=== PATIENT | male | born 1970 | race Caucasian/White ===

== ENCOUNTER 2016-08-18 14:31 | Inpatient (IN) | payer MEDICAID ==
[~2016-08-18] VITALS: Ht 188 cm; Wt 71.9 kg
[~2016-08-18 14:31] MED LIST: AMLO10TA2 PO; BUPR100T71 PO; BUS10T PO; CARI-277 PO; DOC100C PO; ESCI20TA PO; HYDR12.56 PO; HYDR1CAP27 PO; LAMO25TA2 PO; LEVO25TA6 PO; LORA2TAB10 PO; METO25TA5 PO; OXYC10TA44 PO; PANT1INJ3 PO; TRIA1TAB18 PO
[2016-08-18 15:49] LABS: Basophils # (auto) 0 uL; Basophils % (auto) 0.5 % (0.0-2.0); Eosinophils # (auto) 0.1 uL; Eosinophils % (auto) 0.8 % (0.0-7.0); Hematocrit 50.8 % (41.0-53.0); Hemoglobin 17.3 g/dL (13.5-17.5); Lymphocytes # (auto) 1.4 uL; Mean Corpuscular Hemoglobin 30.3 pg (28.0-32.0); Mean Corpuscular Volume 89.2 fL (80.0-100.0); Mean Platelet Volume 7.8 fL (7.4-10.4); Monocytes # (auto) 0.2 uL; Monocytes % (auto) 3.1 % (0.0-12.0); Neutrophils # (auto) 5.8 uL; Neutrophils % (auto) 77.6 % (37.0-80.0); Platelet Count (auto) 242 10^3/uL (140-450); Red Cell Distribution Width 12.7 % (11.6-16.0); White Blood Cell 7.5 10^3/uL (4.4-10.8)
[2016-08-18 16:12] LABS: Albumin 4.2 g/dL (3.4-5.0); BUN/Creatinine Ratio 13.6; Bilirubin, Total 1.4 mg/dL (0.2-1.0); Magnesium 2.6 mg/dL (1.6-2.6); Potassium 3.7 mmol/L (3.5-5.1); Total Protein 7.6 g/dL (6.4-8.2)
[2016-08-18 16:17] LABS: B-Type Natriuretic Peptide 15.5 pg/mL (0-100)
[2016-08-18 16:19] LABS: Temperature: 21.9 C (20.0-25.0)
[2016-08-18] MEDS ORDERED: cloNIDine HCL 0.1 MG TAB PO ONE (22:30)
[2016-08-18] MEDS ORDERED: ONDANSETRON HCL 4 MG/2 ML VIAL IV ONE ×2 (22:30→23:15)
[2016-08-18] MEDS ORDERED: ASPirin 81 mg TAB PO ONE (22:30)
[2016-08-18] MEDS ORDERED: MORPHINE SULFATE 4 MG/ML SYRG IV ONE ×2 (22:30→23:15)
[2016-08-18 22:53] LABS: Urine RBC None Seen /hpf (0 - 3)
[2016-08-18 22:57] LABS: INR 1.08 (0.9-1.15)
[2016-08-18 23:11] LABS: B-Type Natriuretic Peptide 9.16 pg/mL (0-100)
[2016-08-18 23:18] LABS: Urine Bilirubin Negative (Negative); Urine Blood Negative /uL (Negative); Urine Color Yellow (Yellow); Urine Glucose Normal (Normal); Urine Ketone TRACE (Negative); Urine Nitrite Negative (Negative); Urine Squamous Epithelial Cell FEW /hpf (<5); Urine Urobilinogen Normal (Negative); Urine pH 6.5 (5.0-8.0)
[2016-08-18 23:30] LABS: Temperature: 20.9 C (20.0-25.0)
[2016-08-19] VITALS (7 sets, daily range): BP systolic 103–190; BP diastolic 57–102
[2016-08-19] MEDS ORDERED: CARISOPRODOL 350 MG TAB PO PRN (01:15)
[2016-08-19] MEDS ORDERED: NITROGLYCERIN 0.4 MG SL TAB SL PRN (01:15)
[2016-08-19] MEDS ORDERED: LACTULOSE 20Gm/30ML SOLN PO PRN (01:15)
[2016-08-19] MEDS ORDERED: MORPHINE SULF INJ 2 MG/ML SYRINGE 1ML IV PRN (01:15)
[2016-08-19] MEDS ORDERED: LORazepam 0.5 MG TAB PO PRN (01:15)
[2016-08-19] MEDS: SODIUM CHLORIDE 0.9% 1,000 ML IV SCH ×2 (05:51→13:33)
[2016-08-19] MEDS: LEVOTHYROXINE SODIUM 25 MCG TAB PO SCH (06:26)
[2016-08-19] MEDS: OXYCODONE W/ ACETAMINOPHEN 5/325MG TABLET PO PRN ×4 (07:55→22:08)
[2016-08-19] MEDS ORDERED: METOPROLOL SUCCINATE XL 50 MG TAB PO ONE (09:30)
[2016-08-19] MEDS: NITROGLYCERIN 0.2MG/HR TOPICAL PATCH TD SCH (10:00)
[2016-08-19] MEDS ORDERED: ENOXAPARIN SOD 30 MG/0.3 ML SYRINGE SC SCH (10:00)
[2016-08-19] MEDS: ENALAPRIL MALEATE 10 MG TAB PO SCH (10:00)
[2016-08-19] MEDS ORDERED: METOPROLOL TARTRATE 25 MG TAB PO SCH (10:00)
[2016-08-19] MEDS: buPROPion HCL 100 MG TAB PO SCH (11:12)
[2016-08-19] MEDS: amLODIPine BESYLATE 5 MG TAB PO SCH (11:13)
[2016-08-19] MEDS: lamoTRIgine 25 MG TAB PO SCH ×2 (11:15→22:07)
[2016-08-19] MEDS: ASPirin 81 mg TAB PO SCH (11:16)
[2016-08-19] MEDS: CITALOPRAM HYDROBR 20 MG TAB PO SCH (11:16)
[2016-08-19] MEDS: HCTZ 25 MG TAB PO SCH (11:17)
[2016-08-19] MEDS: PANTOPRAZOLE SODIUM 40 MG/10 ML VIAL IV SCH (11:18)
[2016-08-19] MEDS: ENOXAPARIN SOD 40 MG/0.4 ML SYRINGE SC SCH (11:18)
[2016-08-19] MEDS ORDERED: ATORVASTATIN 20 MG TAB PO SCH (22:00)
[2016-08-20] MEDS: SODIUM CHLORIDE 0.9% 1,000 ML IV SCH (02:03)
[2016-08-20 04:30] VITALS: BP 110/78
[2016-08-20 05:47] LABS: Basophils # (auto) 0 uL; Basophils % (auto) 0.6 % (0.0-2.0); Eosinophils # (auto) 0.1 uL; Eosinophils % (auto) 1.3 % (0.0-7.0); Hematocrit 45.3 % (41.0-53.0); Hemoglobin 15.3 g/dL (13.5-17.5); Lymphocytes # (auto) 2.1 uL; Lymphocytes % (auto) 29.1 % (10.0-50.0); Mean Corpuscular Hemoglobin 30.4 pg (28.0-32.0); Mean Corpuscular Hgb Conc. 33.7 g/dL (32.0-36.0); Mean Corpuscular Volume 90.1 fL (80.0-100.0); Monocytes # (auto) 0.3 uL; Monocytes % (auto) 4.8 % (0.0-12.0); Neutrophils # (auto) 4.5 uL; Neutrophils % (auto) 64.2 % (37.0-80.0); Platelet Count (auto) 230 10^3/uL (140-450); Red Cell Distribution Width 12.7 % (11.6-16.0)
[2016-08-20 06:13] LABS: Albumin 3.4 g/dL (3.4-5.0); BUN/Creatinine Ratio 14.4; Bilirubin, Total 1.9 mg/dL (0.2-1.0); Calcium 8.5 mg/dL (8.5-10.1); Potassium 4.1 mmol/L (3.5-5.1); Total Protein 6.3 g/dL (6.4-8.2)
[2016-08-20] MEDS: LEVOTHYROXINE SODIUM 25 MCG TAB PO SCH (06:24)
[2016-08-20 09:12] VITALS: BP 126/83
[2016-08-20] MEDS: ENOXAPARIN SOD 40 MG/0.4 ML SYRINGE SC SCH (09:58)
[2016-08-20] MEDS: PANTOPRAZOLE SODIUM 40 MG/10 ML VIAL IV SCH (09:58)
[2016-08-20] MEDS: ENALAPRIL MALEATE 10 MG TAB PO SCH (09:59)
[2016-08-20] MEDS: lamoTRIgine 25 MG TAB PO SCH (09:59)
[2016-08-20] MEDS: buPROPion HCL 100 MG TAB PO SCH (10:00)
[2016-08-20] MEDS: CITALOPRAM HYDROBR 20 MG TAB PO SCH (10:00)
[2016-08-20] MEDS: NITROGLYCERIN 0.2MG/HR TOPICAL PATCH TD SCH (10:00)
[2016-08-20] MEDS ORDERED: METOPROLOL SUCCINATE XL 50 MG TAB PO SCH (10:00)
[2016-08-20] MEDS: amLODIPine BESYLATE 5 MG TAB PO SCH (10:01)
[2016-08-20] MEDS: ASPirin 81 mg TAB PO SCH (10:02)
[2016-08-20] MEDS: HCTZ 25 MG TAB PO SCH (10:06)
[2016-08-20 13:00] VITALS: BP 128/94
[2016-08-20 15:52] VITALS: BP 126/83
== END 2016-08-20 15:51 | disposition home or self-care (01) | DRG 203 ==
LOC: ER 14:41 → TELE 14:42 → TELE-WESTW 08-19 01:34 → WEST WING 08-20 03:18
PROVIDERS: ADMIT Family Medicine; ATTEND Family Medicine
DX: R07.9 Chest pain, unspecified (principal); G45.9 Transient cerebral ischemic attack, unspecified; I10 Essential (primary) hypertension; E03.9 Hypothyroidism, unspecified; F32.9 Major depressive disorder, single episode, unspecified; F41.9 Anxiety disorder, unspecified; F43.10 Post-traumatic stress disorder, unspecified; G40.909 Epilepsy, unspecified, not intractable, without status epilepticus; I69.354 Hemiplegia and hemiparesis following cerebral infarction affecting left non-dominant side; Z82.3 Family history of stroke; Z87.442 Personal history of urinary calculi; Z88.5 Allergy status to narcotic agent; Z88.8 Allergy status to other drugs, medicaments and biological substances; Z90.89 Acquired absence of other organs
CPT/HCPCS: 36415; 71010; 71020; 80053; 80061; 81001; 83735; 83880; 84484; 85025; 85049; 85379; 85610; 85730; 93005; 96374; 96375; 97110; 97116; 97530; C9113; J2405

== ENCOUNTER 2017-04-28 19:22 | Emergency (ER) | payer MEDICAID ==
[~2017-04-28] VITALS: Ht 188 cm; Wt 74.8 kg
[2017-04-28 19:33] VITALS: BP 163/100
[2017-04-28 20:03] LABS: Urine Bilirubin Negative (Negative); Urine Blood Negative /uL (Negative); Urine Color Yellow (Yellow); Urine Glucose TRACE mg/dL (Normal); Urine Ketone Negative (Negative); Urine Mucus FEW (None Seen); Urine Nitrite Negative (Negative); Urine RBC 1 /hpf (0 - 3); Urine Squamous Epithelial Cell FEW /hpf (<5); Urine Urobilinogen Normal (Negative); Urine pH 5.5 (5.0-8.0)
[2017-04-28 20:35] LABS: BUN/Creatinine Ratio 13.5; Magnesium 2.7 mg/dL (1.6-2.6); Potassium 3.8 mmol/L (3.5-5.1)
[2017-04-28 20:37] LABS: Bilirubin, Total 1.7 mg/dL (0.2-1.0); Total Protein 7.2 g/dL (6.4-8.2)
[2017-04-28 20:50] LABS: Basophils # (auto) 0.1 uL; Basophils % (auto) 1.1 % (0.0-2.0); Eosinophils # (auto) 0.1 uL; Eosinophils % (auto) 1.3 % (0.0-7.0); Hemoglobin 17.2 g/dL (13.5-17.5); Lymphocytes # (auto) 1.8 uL; Lymphocytes % (auto) 27.2 % (10.0-50.0); Mean Corpuscular Hgb Conc. 35.9 g/dL (32.0-36.0); Mean Corpuscular Volume 89.2 fL (80.0-100.0); Monocytes # (auto) 0.3 uL; Monocytes % (auto) 4.4 % (0.0-12.0); Neutrophils # (auto) 4.4 uL; Nucleated Red Blood Cells % 0.1 %; Platelet Count (auto) 222 10^3/uL (140-450); Red Cell Distribution Width 12.7 % (11.8-14.3); White Blood Cell 6.7 10^3/uL (4.4-10.8)
== END 2017-04-28 20:57 | disposition left against medical advice (07) ==
LOC: ER 19:22
DX: R10.9 Unspecified abdominal pain (principal); Z53.21 Procedure and treatment not carried out due to patient leaving prior to being seen by health care provider
CPT/HCPCS: 36415; 80053; 81001; 83690; 83735; 85025

== ENCOUNTER 2017-11-17 23:52 | Emergency (ER) | payer MEDICAID ==
[~2017-11-17] VITALS: Ht 188 cm; Wt 74.8 kg
[2017-11-18] MEDS ORDERED: cloNIDine HCL 0.1 MG TAB ONE (00:11)
[2017-11-18] MEDS ORDERED: cloNIDine HCL 0.1 MG TAB PO ONE (00:30)
[2017-11-18 01:19] LABS: Basophils # (auto) 0.1 uL; Basophils % (auto) 0.8 % (0.0-2.0); Eosinophils # (auto) 0 uL; Eosinophils % (auto) 0.5 % (0.0-7.0); Hematocrit 48.1 % (41.0-53.0); Lymphocytes # (auto) 1.9 uL; Lymphocytes % (auto) 23.6 % (10.0-50.0); Mean Corpuscular Hgb Conc. 35.4 g/dL (32.0-36.0); Mean Corpuscular Volume 87.7 fL (80.0-100.0); Monocytes # (auto) 0.3 uL; Monocytes % (auto) 4.4 % (0.0-12.0); Neutrophils # (auto) 5.6 uL; Neutrophils % (auto) 70.7 % (37.0-80.0); Nucleated Red Blood Cells % 0.1 %; Platelet Count (auto) 226 10^3/uL (140-450); Red Blood Cells 5.48 10^6/uL (4.5-5.90); Red Cell Distribution Width 12.9 % (11.8-14.3); White Blood Cell 7.9 10^3/uL (4.4-10.8)
[2017-11-18 01:37] LABS: Chloride 106 mmol/L (98-107); Potassium 3.4 mmol/L (3.5-5.1); Sodium 140 mmol/L (136-145)
[2017-11-18 01:41] LABS: Alanine Aminotransferase 23 U/L (16-61); Albumin 3.9 g/dL (3.4-5.0); Anion Gap 9 (5-15); Aspartate Aminotransferase 16 U/L (15-37); BUN/Creatinine Ratio 13.8; Blood Urea Nitrogen 19 mg/dL (7-18); Calcium 8.7 mg/dL (8.5-10.1); Carbon Dioxide 25 mmol/L (21-32); GFR African American 71 mL/min; GFR Non-African American 59 mL/min; Glucose 94 mg/dL (74-106); Magnesium 2.4 mg/dL (1.6-2.6)
[2017-11-18 01:46] LABS: Alkaline Phosphatase 77 U/L (45-117); Bilirubin, Total 1.4 mg/dL (0.2-1.0); Total Protein 7.3 g/dL (6.4-8.2)
[2017-11-18 04:30] VITALS: BP 152/88
== END 2017-11-18 05:42 | disposition home or self-care (01) ==
LOC: ER 23:59
DX: F41.9 Anxiety disorder, unspecified (principal); I10 Essential (primary) hypertension; R51 Headache; Z86.73 Personal history of transient ischemic attack (TIA), and cerebral infarction without residual deficits; Z87.442 Personal history of urinary calculi; Z88.6 Allergy status to analgesic agent; Z88.8 Allergy status to other drugs, medicaments and biological substances
CPT/HCPCS: 36415; 70450; 71045; 80053; 83735; 84484; 85025; 93005

== ENCOUNTER 2017-12-17 09:38 | Inpatient (IN) | payer MEDICAID ==
[~2017-12-17] VITALS: Ht 188 cm; Wt 77.5 kg
[2017-12-17] MEDS ORDERED: LABETALOL HCL 5 MG/ML ML 20ML VIAL IV ONE (10:00)
[2017-12-17 10:30] LABS: Basophils # (auto) 0 uL; Basophils % (auto) 0.7 % (0.0-2.0); Eosinophils # (auto) 0.1 uL; Eosinophils % (auto) 1.4 % (0.0-7.0); Hematocrit 49.7 % (41.0-53.0); Hemoglobin 17.5 g/dL (13.5-17.5); Lymphocytes # (auto) 1.3 uL; Lymphocytes % (auto) 23.6 % (10.0-50.0); Mean Corpuscular Hemoglobin 30.6 pg (28.0-32.0); Mean Corpuscular Hgb Conc. 35.2 g/dL (32.0-36.0); Mean Corpuscular Volume 86.9 fL (80.0-100.0); Monocytes # (auto) 0.3 uL; Monocytes % (auto) 5.3 % (0.0-12.0); Neutrophils # (auto) 3.8 uL; Nucleated Red Blood Cells % 0.1 %; Platelet Count (auto) 230 10^3/uL (140-450); Red Blood Cells 5.71 10^6/uL (4.5-5.90); Red Cell Distribution Width 12.9 % (11.8-14.3); White Blood Cell 5.5 10^3/uL (4.4-10.8)
[2017-12-17 10:34] LABS: INR 1.03 (0.9-1.15); Partial Thromboplastin Time 27.8 sec (22.64-33.71); Prothrombin Time 11.2 sec (9.37-12.3)
[2017-12-17 10:38] LABS: Alanine Aminotransferase 29 U/L (16-61); Albumin 3.9 g/dL (3.4-5.0); Anion Gap 10 (5-15); Aspartate Aminotransferase 18 U/L (15-37); BUN/Creatinine Ratio 10.9; Blood Urea Nitrogen 14 mg/dL (7-18); Calcium 8.4 mg/dL (8.5-10.1); Carbon Dioxide 24 mmol/L (21-32); Chloride 106 mmol/L (98-107); GFR African American 77 mL/min; GFR Non-African American 64 mL/min; Glucose 95 mg/dL (74-106); Potassium 3.7 mmol/L (3.5-5.1); Sodium 140 mmol/L (136-145)
[2017-12-17 10:46] LABS: Alkaline Phosphatase 84 U/L (45-117); Bilirubin, Total 1.6 mg/dL (0.2-1.0); Total Protein 7.8 g/dL (6.4-8.2)
[2017-12-17] MEDS ORDERED: cloNIDine HCL 0.1 MG TAB PO PRN (13:45)
[2017-12-17] MEDS ORDERED: ACETAMINOPHEN 325 MG TAB PO PRN (13:45)
[2017-12-17] MEDS ORDERED: ONDANSETRON HCL 4 MG/2 ML VIAL IV PRN (13:45)
[2017-12-17] MEDS ORDERED: DOCUSATE SOD 100 MG CAP PO PRN (13:45)
[2017-12-17] MEDS ORDERED: ALPRAZolam 0.5 MG TAB PO PRN (13:45)
[2017-12-17] MEDS ORDERED: MORPHINE SULFATE 4 MG/ML SYR/VIAL IV PRN (13:45)
[2017-12-17] MEDS ORDERED: NITROGLYCERIN 0.4 MG SL TAB SL PRN (13:45)
[2017-12-17] MEDS ORDERED: LORazepam 2MG/ML-1ML VIAL IV PRN (14:00)
[2017-12-17] MEDS ORDERED: ASPirin-EC 81 mg tab PO ONE (14:00)
[2017-12-17] MEDS: SODIUM CHLOR 0.9% PF (SALINE LOCK) 10ML VIAL/SYR IV SCH ×2 (14:01→21:48)
[2017-12-17] MEDS ORDERED: LOSARTAN POTASSIUM 50 MG TAB PO ONE (14:15)
[2017-12-17] MEDS ORDERED: amLODIPine BESYLATE 5 MG TAB PO ONE (14:15)
[2017-12-17] MEDS: GABAPENTIN 300 MG CAP PO SCH ×2 (14:35→21:46)
[2017-12-17] MEDS: ENOXAPARIN SOD 40 MG/0.4 ML SYRINGE SC SCH (14:37)
[2017-12-17] MEDS ORDERED: LOSA50TA6 PO (16:44)
[2017-12-17] MEDS ORDERED: AMLO5TAB2 PO (16:44)
[2017-12-17] MEDS ORDERED: ALPR0.254 PO (16:44)
[2017-12-17] MEDS ORDERED: CLON0.1T PO (16:44)
[2017-12-17] MEDS: MORPHINE SULFATE 4 MG/ML SYR/VIAL IV PRN (17:45)
[2017-12-17 17:55] LABS: Cholesterol 145 mg/dL (< 200); HDL Cholesterol 35 mg/dL (40-59); LDL Cholesterol 110 mg/dL (< 100); Triglycerides 89 mg/dL (< 150)
[2017-12-17 20:10] VITALS: BP 144/110
[2017-12-17] MEDS: TEMAZEPAM 15 MG CAP PO PRN (21:45)
[2017-12-17] MEDS: KETOROLAC TROMETH 30 MG/ML 1ML VIAL IV PRN (21:45)
[2017-12-17] MEDS: ATORVASTATIN 20 MG TAB PO SCH (21:46)
[2017-12-17] MEDS: FAMOTIDINE 20 MG TAB PO SCH (21:46)
[2017-12-17] MEDS: cloNIDine HCL 0.1 MG TAB PO SCH (21:48)
[2017-12-17 22:00] VITALS: BP 144/110
[2017-12-18 05:00] VITALS: BP 120/80
[2017-12-18 06:09] LABS: Basophils # (auto) 0.1 uL; Basophils % (auto) 1.5 % (0.0-2.0); Eosinophils # (auto) 0.1 uL; Eosinophils % (auto) 1.2 % (0.0-7.0); Hemoglobin 15.8 g/dL (13.5-17.5); Lymphocytes # (auto) 1.6 uL; Lymphocytes % (auto) 26.9 % (10.0-50.0); Mean Corpuscular Hemoglobin 31.5 pg (28.0-32.0); Mean Corpuscular Hgb Conc. 35.9 g/dL (32.0-36.0); Mean Corpuscular Volume 87.8 fL (80.0-100.0); Monocytes # (auto) 0.3 uL; Neutrophils # (auto) 3.9 uL; Neutrophils % (auto) 65.4 % (37.0-80.0); Nucleated Red Blood Cells % 0.5 %; Platelet Count (auto) 197 10^3/uL (140-450); Red Blood Cells 5.02 10^6/uL (4.5-5.90); White Blood Cell 5.9 10^3/uL (4.4-10.8)
[2017-12-18 06:27] LABS: Albumin 3.4 g/dL (3.4-5.0); BUN/Creatinine Ratio 11.2; Calcium 8.5 mg/dL (8.5-10.1); Potassium 3.9 mmol/L (3.5-5.1); Total Protein 6.4 g/dL (6.4-8.2)
[2017-12-18] MEDS: GABAPENTIN 300 MG CAP PO SCH ×3 (06:55→21:11)
[2017-12-18] MEDS: SODIUM CHLOR 0.9% PF (SALINE LOCK) 10ML VIAL/SYR IV SCH ×3 (06:59→22:55)
[2017-12-18 08:10] VITALS: BP 118/82
[2017-12-18 08:35] VITALS: BP 118/82
[2017-12-18 09:08] LABS: Urine Bacteria FEW /hpf (None Seen); Urine Blood Negative /uL (Negative); Urine Mucus FEW (None Seen); Urine Specific Gravity 1.027 (1.001-1.035); Urine WBC 1 /hpf (0 - 3)
[2017-12-18] MEDS: FAMOTIDINE 20 MG TAB PO SCH ×2 (10:39→21:11)
[2017-12-18] MEDS: ENOXAPARIN SOD 40 MG/0.4 ML SYRINGE SC SCH (10:40)
[2017-12-18] MEDS: amLODIPine BESYLATE 5 MG TAB PO SCH (10:41)
[2017-12-18] MEDS: ASPirin-EC 81 mg tab PO SCH (10:41)
[2017-12-18] MEDS: HCTZ 25 MG TAB PO SCH (10:42)
[2017-12-18] MEDS: MULTIPLE VITAMIN TAB PO SCH (10:42)
[2017-12-18] MEDS: cloNIDine HCL 0.1 MG TAB PO SCH ×2 (10:43→21:10)
[2017-12-18] MEDS: LOSARTAN POTASSIUM 50 MG TAB PO SCH (10:44)
[2017-12-18] MEDS: KETOROLAC TROMETH 30 MG/ML 1ML VIAL IV PRN ×2 (11:34→18:46)
[2017-12-18 13:00] VITALS: BP 130/88
[2017-12-18 16:49] VITALS: BP 119/81
[2017-12-18] MEDS: ATORVASTATIN 20 MG TAB PO SCH (21:11)
[2017-12-18] MEDS: MORPHINE SULFATE 4 MG/ML SYR/VIAL IV PRN (21:14)
[2017-12-18 21:26] VITALS: BP 140/91
[2017-12-18] MEDS: TEMAZEPAM 15 MG CAP PO PRN ×2 (23:30→23:43)
[2017-12-19] VITALS (7 sets, daily range): BP systolic 116–148; BP diastolic 75–95
[2017-12-19 05:59] LABS: Basophils # (auto) 0.1 uL; Basophils % (auto) 0.8 % (0.0-2.0); Eosinophils # (auto) 0.1 uL; Eosinophils % (auto) 1.9 % (0.0-7.0); Hemoglobin 15.9 g/dL (13.5-17.5); Lymphocytes # (auto) 2.4 uL; Lymphocytes % (auto) 34.1 % (10.0-50.0); Mean Corpuscular Hemoglobin 31.6 pg (28.0-32.0); Mean Corpuscular Hgb Conc. 36.1 g/dL (32.0-36.0); Mean Corpuscular Volume 87.7 fL (80.0-100.0); Monocytes # (auto) 0.4 uL; Monocytes % (auto) 5.2 % (0.0-12.0); Nucleated Red Blood Cells % 0.2 %; Platelet Count (auto) 187 10^3/uL (140-450); Red Blood Cells 5.02 10^6/uL (4.5-5.90); Red Cell Distribution Width 12.7 % (11.8-14.3); White Blood Cell 6.9 10^3/uL (4.4-10.8)
[2017-12-19 06:15] LABS: Albumin 3.4 g/dL (3.4-5.0); BUN/Creatinine Ratio 16.1; Bilirubin, Total 1.4 mg/dL (0.2-1.0); Calcium 8.6 mg/dL (8.5-10.1); Potassium 3.9 mmol/L (3.5-5.1); Total Protein 6.5 g/dL (6.4-8.2)
[2017-12-19] MEDS: GABAPENTIN 300 MG CAP PO SCH ×3 (06:55→21:32)
[2017-12-19] MEDS: KETOROLAC TROMETH 30 MG/ML 1ML VIAL IV PRN ×2 (07:00→17:50)
[2017-12-19] MEDS: SODIUM CHLOR 0.9% PF (SALINE LOCK) 10ML VIAL/SYR IV SCH ×3 (07:01→21:30)
[2017-12-19] MEDS: LOSARTAN POTASSIUM 50 MG TAB PO SCH (10:55)
[2017-12-19] MEDS: cloNIDine HCL 0.1 MG TAB PO SCH ×2 (10:55→21:31)
[2017-12-19] MEDS: MULTIPLE VITAMIN TAB PO SCH (10:56)
[2017-12-19] MEDS: ASPirin-EC 81 mg tab PO SCH (10:56)
[2017-12-19] MEDS: HCTZ 25 MG TAB PO SCH (10:56)
[2017-12-19] MEDS: FAMOTIDINE 20 MG TAB PO SCH ×2 (10:57→21:32)
[2017-12-19] MEDS: amLODIPine BESYLATE 5 MG TAB PO SCH (10:57)
[2017-12-19] MEDS: ENOXAPARIN SOD 40 MG/0.4 ML SYRINGE SC SCH (10:58)
[2017-12-19] MEDS: ATORVASTATIN 20 MG TAB PO SCH (21:32)
[2017-12-20 05:02] VITALS: BP 112/74
[2017-12-20] MEDS: SODIUM CHLOR 0.9% PF (SALINE LOCK) 10ML VIAL/SYR IV SCH (06:29)
[2017-12-20] MEDS: GABAPENTIN 300 MG CAP PO SCH (06:29)
[2017-12-20 07:42] VITALS: BP 126/85
[2017-12-20] MEDS: ASPirin-EC 81 mg tab PO SCH (10:03)
[2017-12-20] MEDS: cloNIDine HCL 0.1 MG TAB PO SCH (10:03)
[2017-12-20] MEDS: LOSARTAN POTASSIUM 50 MG TAB PO SCH (10:03)
[2017-12-20] MEDS: HCTZ 25 MG TAB PO SCH (10:03)
[2017-12-20] MEDS: amLODIPine BESYLATE 5 MG TAB PO SCH (10:04)
[2017-12-20] MEDS: FAMOTIDINE 20 MG TAB PO SCH (10:04)
[2017-12-20] MEDS: MULTIPLE VITAMIN TAB PO SCH (10:04)
[2017-12-20] MEDS: ENOXAPARIN SOD 40 MG/0.4 ML SYRINGE SC SCH (10:04)
[2017-12-20 11:22] VITALS: BP 116/79
== END 2017-12-20 13:25 | disposition home or self-care (01) | DRG 45 ==
LOC: ER 09:38 → TELE 09:39 → TELE-EAST 18:55
PROVIDERS: ADMIT Internal Medicine; ATTEND Internal Medicine
DX: I63.9 Cerebral infarction, unspecified (principal); G81.94 Hemiplegia, unspecified affecting left nondominant side; I12.9 Hypertensive chronic kidney disease with stage 1 through stage 4 chronic kidney disease, or unspecified chronic kidney disease; E83.51 Hypocalcemia; N18.2 Chronic kidney disease, stage 2 (mild); G40.909 Epilepsy, unspecified, not intractable, without status epilepticus; G47.00 Insomnia, unspecified; F41.9 Anxiety disorder, unspecified; E03.9 Hypothyroidism, unspecified; G43.909 Migraine, unspecified, not intractable, without status migrainosus; F43.10 Post-traumatic stress disorder, unspecified; N18.9 Chronic kidney disease, unspecified; Z79.82 Long term (current) use of aspirin; Z79.899 Other long term (current) drug therapy; Z80.1 Family history of malignant neoplasm of trachea, bronchus and lung; Z80.3 Family history of malignant neoplasm of breast; Z82.0 Family history of epilepsy and other diseases of the nervous system; Z82.3 Family history of stroke; Z82.49 Family history of ischemic heart disease and other diseases of the circulatory system; Z83.3 Family history of diabetes mellitus; Z90.49 Acquired absence of other specified parts of digestive tract; Z88.8 Allergy status to other drugs, medicaments and biological substances; Z88.5 Allergy status to narcotic agent
CPT/HCPCS: 36415; 70450; 70545; 71045; 80053; 80061; 81001; 84484; 85025; 85610; 85730; 93005; 93306; 93886; 95819; 96372; 96374; 96375; 97110; 97116; 97163; 97530; 99291; J1885; J2405

== ENCOUNTER 2018-05-16 17:35 | Inpatient (IN) | payer MEDICAID ==
[~2018-05-16] VITALS: Ht 188 cm; Wt 74.4 kg
[~2018-05-16 17:35] MED LIST changes: +ALPR0.254 PO; -AMLO10TA2 PO; +AMLO5TAB13 PO; -BUPR100T71 PO; -BUS10T PO; -CARI-277 PO; +CLON0.1T PO; -DOC100C PO; -ESCI20TA PO; -HYDR12.56 PO; -HYDR1CAP27 PO; -LAMO25TA2 PO; -LEVO25TA6 PO; -LORA2TAB10 PO; +LOSA-46 PO; -METO25TA5 PO; -OXYC10TA44 PO; -PANT1INJ3 PO; -TRIA1TAB18 PO
[2018-05-16] MEDS ORDERED: ONDANSETRON HCL 4 MG/2 ML VIAL IV ONE (18:15)
[2018-05-16] MEDS ORDERED: hydrALAZINE HCL 20 MG/ML VL IV ONE (18:15)
[2018-05-16] MEDS ORDERED: HYDROmorphone HCL 2 MG/ML VL IV ONE (18:15)
[2018-05-16 18:53] LABS: Alanine Aminotransferase 28 U/L (16-61); Albumin 3.9 g/dL (3.4-5.0); Anion Gap 9 (5-15); Aspartate Aminotransferase 13 U/L (15-37); BUN/Creatinine Ratio 12.6; Blood Urea Nitrogen 17 mg/dL (7-18); Calcium 8.8 mg/dL (8.5-10.1); Carbon Dioxide 25 mmol/L (21-32); Chloride 103 mmol/L (98-107); GFR African American 73 mL/min; GFR Non-African American 60 mL/min; Glucose 107 mg/dL (74-106); Potassium 3.5 mmol/L (3.5-5.1); Sodium 137 mmol/L (136-145)
[2018-05-16 19:01] LABS: Alkaline Phosphatase 80 U/L (45-117); Bilirubin, Total 2.5 mg/dL (0.2-1.0); Total Protein 7.8 g/dL (6.4-8.2)
[2018-05-16] MEDS ORDERED: cloNIDine HCL 0.1 MG TAB PO ONE (20:00)
[2018-05-16 20:11] LABS: Basophils % (auto) 0.2 % (0.0-2.0); Eosinophils % (auto) 0.1 % (0.0-7.0); Lymphocytes % (auto) 8.7 % (10.0-50.0); Monocytes % (auto) 3.6 % (0.0-12.0); Neutrophils % (auto) 87.4 % (37.0-80.0); Nucleated Red Blood Cells % 0.4 %; White Blood Cell 10.6 10^3/uL (4.4-10.8)
[2018-05-16 20:12] LABS: Basophils # (auto) 0 uL; Eosinophils # (auto) 0 uL; Hematocrit 50.4 % (41.0-53.0); Hemoglobin 17.6 g/dL (13.5-17.5); Lymphocytes # (auto) 0.9 uL; Mean Corpuscular Hemoglobin 31.7 pg (28.0-32.0); Mean Corpuscular Hgb Conc. 36.2 g/dL (32.0-36.0); Mean Corpuscular Volume 87.5 fL (80.0-100.0); Monocytes # (auto) 0.4 uL; Neutrophils # (auto) 9.3 uL; Platelet Count (auto) 210 10^3/uL (140-450); Red Blood Cells 5.57 10^6/uL (4.5-5.90); Red Cell Distribution Width 12.9 % (11.8-14.3)
[2018-05-16] MEDS ORDERED: HYDROcodone-ACET 5/325MG TAB PO PRN (21:00)
[2018-05-16] MEDS ORDERED: MORPHINE SULFATE 4 MG/ML SYR/VIAL IV PRN (21:00)
[2018-05-16] MEDS ORDERED: TEMAZEPAM 15 MG CAP PO PRN (21:00)
[2018-05-16] MEDS ORDERED: NITROGLYCERIN 0.4 MG SL TAB SL PRN (21:00)
[2018-05-16] MEDS ORDERED: ALPRAZolam 0.25 MG TAB PO PRN (21:00)
[2018-05-16] MEDS ORDERED: ACETAMINOPHEN 325 MG TAB PO PRN (21:00)
[2018-05-16] MEDS: hydrALAZINE HCL 25 MG TAB PO SCH (21:49)
[2018-05-16] MEDS: cloNIDine HCL 0.1 MG TAB PO SCH (21:49)
[2018-05-16] MEDS: ONDANSETRON HCL 4 MG/2 ML VIAL IV PRN (21:50)
[2018-05-16] MEDS: FAMOTIDINE 20 MG TAB PO SCH (21:50)
[2018-05-16 22:30] VITALS: BP 155/117
[2018-05-17] VITALS (8 sets, daily range): BP systolic 123–149; BP diastolic 78–96
[2018-05-17] MEDS ORDERED: IBUPROFEN 600 MG TAB PO ONE (01:15)
[2018-05-17 05:54] LABS: Basophils # (auto) 0 uL; Basophils % (auto) 0.3 % (0.0-2.0); Eosinophils # (auto) 0 uL; Eosinophils % (auto) 0.3 % (0.0-7.0); Hemoglobin 16.5 g/dL (13.5-17.5); Lymphocytes # (auto) 1.5 uL; Lymphocytes % (auto) 16.3 % (10.0-50.0); Mean Corpuscular Hemoglobin 31.7 pg (28.0-32.0); Mean Corpuscular Hgb Conc. 36.4 g/dL (32.0-36.0); Mean Corpuscular Volume 86.9 fL (80.0-100.0); Monocytes # (auto) 0.5 uL; Monocytes % (auto) 5.8 % (0.0-12.0); Neutrophils # (auto) 7.3 uL; Neutrophils % (auto) 77.3 % (37.0-80.0); Nucleated Red Blood Cells % 0.2 %; Platelet Count (auto) 210 10^3/uL (140-450); Red Blood Cells 5.21 10^6/uL (4.5-5.90); Red Cell Distribution Width 12.9 % (11.8-14.3); White Blood Cell 9.4 10^3/uL (4.4-10.8)
[2018-05-17] MEDS: cloNIDine HCL 0.1 MG TAB PO SCH ×3 (06:00→21:10)
[2018-05-17 06:15] LABS: Hematocrit 45.8 % (41.0-53.0)
[2018-05-17 06:18] LABS: Albumin 3.4 g/dL (3.4-5.0); BUN/Creatinine Ratio 12.1; Calcium 8.5 mg/dL (8.5-10.1); Potassium 3.5 mmol/L (3.5-5.1)
[2018-05-17 06:20] LABS: Bilirubin, Total 2.3 mg/dL (0.2-1.0); Total Protein 6.7 g/dL (6.4-8.2)
[2018-05-17] MEDS: hydrALAZINE HCL 25 MG TAB PO SCH ×3 (06:48→21:10)
[2018-05-17] MEDS: LOSARTAN POTASSIUM 50 MG TAB PO SCH (10:21)
[2018-05-17] MEDS: FAMOTIDINE 20 MG TAB PO SCH ×2 (10:21→21:11)
[2018-05-17] MEDS: amLODIPine BESYLATE 5 MG TAB PO SCH (10:22)
[2018-05-17] MEDS: ASPirin 81 mg TAB PO SCH (10:23)
[2018-05-17] MEDS: MEPERIDINE HCL (25 MG/ML) 1ML VIAL IV PRN ×2 (12:51→21:09)
[2018-05-18] MEDS: MEPERIDINE HCL (25 MG/ML) 1ML VIAL IV PRN ×4 (01:17→13:56)
[2018-05-18 05:17] VITALS: BP 125/81
[2018-05-18] MEDS: hydrALAZINE HCL 25 MG TAB PO SCH ×2 (05:18→13:49)
[2018-05-18] MEDS: cloNIDine HCL 0.1 MG TAB PO SCH ×2 (06:00→14:00)
[2018-05-18 06:09] LABS: BUN/Creatinine Ratio 14.5; Calcium 8.2 mg/dL (8.5-10.1); Potassium 3.6 mmol/L (3.5-5.1)
[2018-05-18] MEDS: ONDANSETRON HCL 4 MG/2 ML VIAL IV PRN (08:35)
[2018-05-18 09:00] VITALS: BP 129/74
[2018-05-18] MEDS: FAMOTIDINE 20 MG TAB PO SCH (09:50)
[2018-05-18] MEDS: amLODIPine BESYLATE 5 MG TAB PO SCH (09:51)
[2018-05-18] MEDS: LOSARTAN POTASSIUM 50 MG TAB PO SCH (09:52)
[2018-05-18] MEDS: ASPirin 81 mg TAB PO SCH (09:53)
[2018-05-18 13:00] VITALS: BP 126/81
[2018-05-18 13:28] VITALS: BP 129/74
== END 2018-05-18 14:35 | disposition home or self-care (01) | DRG 199 ==
LOC: ER 17:35 → TELE-EAST 17:36
PROVIDERS: ADMIT Nurse Practitioner; ATTEND Internal Medicine
DX: I11.9 Hypertensive heart disease without heart failure (principal); G62.9 Polyneuropathy, unspecified; E07.9 Disorder of thyroid, unspecified; F43.10 Post-traumatic stress disorder, unspecified; Z90.49 Acquired absence of other specified parts of digestive tract; Z86.73 Personal history of transient ischemic attack (TIA), and cerebral infarction without residual deficits; Z82.49 Family history of ischemic heart disease and other diseases of the circulatory system; Z80.1 Family history of malignant neoplasm of trachea, bronchus and lung; Z80.3 Family history of malignant neoplasm of breast; Z80.8 Family history of malignant neoplasm of other organs or systems; Z82.0 Family history of epilepsy and other diseases of the nervous system; G40.909 Epilepsy, unspecified, not intractable, without status epilepticus; I08.0 Rheumatic disorders of both mitral and aortic valves; I25.10 Atherosclerotic heart disease of native coronary artery without angina pectoris; Z84.1 Family history of disorders of kidney and ureter; Z82.3 Family history of stroke; F41.9 Anxiety disorder, unspecified; G43.909 Migraine, unspecified, not intractable, without status migrainosus; Z88.6 Allergy status to analgesic agent; Z88.8 Allergy status to other drugs, medicaments and biological substances; Z79.899 Other long term (current) drug therapy
CPT/HCPCS: 36415; 71045; 80048; 80053; 83735; 83880; 84484; 85025; 93005; 94761; 96374; 96375; A6257; J2405

== ENCOUNTER 2021-03-14 07:52 | Inpatient (IN) | payer MEDICAID ==
[~2021-03-14] VITALS: Ht 188 cm; Wt 76.6 kg
[~2021-03-14 07:52] MED LIST changes: -ALPR0.254 PO; +AML5T PO; -AMLO5TAB13 PO; +ASPI-543 PO; -CLON0.1T PO; +HYDR25TA87 PO; +ISOS10TA2 PO; -LOSA-46 PO
[2021-03-14] MEDS ORDERED: hydrALAZINE HCL 20 MG/ML VL IV ONE (08:45)
[2021-03-14 08:53] LABS: Albumin 3.6 g/dL (3.4-5.0); Anion Gap 4 (5-15); Blood Urea Nitrogen 21 mg/dL (7-18); Calcium 8.6 mg/dL (8.5-10.1); Carbon Dioxide 23 mmol/L (21-32); Chloride 112 mmol/L (98-107); Glucose 92 mg/dL (74-106); Sodium 139 mmol/L (136-145)
[2021-03-14 08:54] LABS: Basophils # (auto) 0.1 10 ^3/uL (0-0.2); Basophils % (auto) 1.9 % (0.0-2.0); Eosinophils # (auto) 0.1 10 ^3/uL (0-0.8); Eosinophils % (auto) 1.9 % (0.0-7.0); Hematocrit 46.7 % (41.0-53.0); Hemoglobin 16.7 g/dL (13.5-17.5); Lymphocytes # (auto) 1.2 10 ^3/uL (0.4-5.4); Lymphocytes % (auto) 18.2 % (10.0-50.0); Mean Corpuscular Hemoglobin 31.2 pg (28.0-32.0); Mean Corpuscular Hgb Conc. 35.7 g/dL (32.0-36.0); Mean Corpuscular Volume 87.4 fL (80.0-100.0); Monocytes # (auto) 0.2 10 ^3/uL (0-1.3); Monocytes % (auto) 3.7 % (0.0-12.0); Neutrophils # (auto) 4.8 10 ^3/uL (1.6-8.6); Neutrophils % (auto) 74.3 % (37.0-80.0); Nucleated Red Blood Cells % 0.3 %; Red Blood Cells 5.35 10^6/uL (4.5-5.90); Red Cell Distribution Width 12.8 % (11.8-14.3); White Blood Cell 6.4 10^3/uL (4.4-10.8)
[2021-03-14 08:59] LABS: Alanine Aminotransferase 38 U/L (16-61); Alkaline Phosphatase 70 U/L (45-117); Aspartate Aminotransferase 20 U/L (15-37); BUN/Creatinine Ratio 13.7; Bilirubin, Total 1.3 mg/dL (0.2-1.0); GFR African American 62 mL/min; GFR Non-African American 51 mL/min; Total Protein 7.3 g/dL (6.4-8.2)
[2021-03-14] MEDS ORDERED: MORPHINE SULF INJ 2 MG/ML SYRINGE 1ML IV PRN (10:15)
[2021-03-14] MEDS ORDERED: ONDANSETRON HCL 4 MG/2 ML VIAL IV PRN (10:15)
[2021-03-14] MEDS ORDERED: NITROGLYCERIN 0.4 MG SL TAB SL PRN (10:15)
[2021-03-14] MEDS ORDERED: IBUPROFEN 400 MG TAB PO PRN (10:15)
[2021-03-14] MEDS: NIFEdipine ER 30 MG TAB PO SCH (10:15)
[2021-03-14] MEDS ORDERED: hydrALAZINE HCL 20 MG/ML VL IV PRN (10:15)
[2021-03-14] MEDS: SODIUM CHLORIDE 0.9% 1,000 ML IV SCH (10:43)
[2021-03-14] MEDS ORDERED: NIFEdipine ER 30 MG TAB PO ONE (10:52)
[2021-03-14] MEDS ORDERED: IOHEXOL 300 MG/ML 100ML BOTTLE IJ ONE (14:33)
[2021-03-14] MEDS ORDERED: OMEP20TA PO (15:24)
[2021-03-14] MEDS ORDERED: PERCOT PO (15:24)
[2021-03-14] MEDS ORDERED: LABE300T3 PO (15:24)
[2021-03-14] MEDS ORDERED: LEV50T PO (15:24)
[2021-03-14] MEDS ORDERED: FURO40TA4 PO (15:24)
[2021-03-14] MEDS ORDERED: POTA8TAB2 PO (15:24)
[2021-03-14] MEDS ORDERED: HYDR-3682 PO (15:24)
[2021-03-14] MEDS ORDERED: NIFE90TA49 PO (15:24)
[2021-03-14 16:56] VITALS: BP 160/106
[2021-03-14] MEDS: LABETALOL HCL 200 MG TAB PO SCH (20:24)
[2021-03-14] MEDS: MORPHINE SULF INJ 2 MG/ML SYRINGE 1ML IV PRN (20:25)
[2021-03-14 21:31] VITALS: BP 126/85
[2021-03-15 04:50] VITALS: BP 107/71
[2021-03-15] MEDS: SODIUM CHLORIDE 0.9% 1,000 ML IV SCH ×3 (06:45→19:27)
[2021-03-15 09:00] VITALS: BP 128/86
[2021-03-15] MEDS: LABETALOL HCL 200 MG TAB PO SCH ×2 (09:50→21:40)
[2021-03-15] MEDS: NIFEdipine ER 30 MG TAB PO SCH (09:51)
[2021-03-15] MEDS ORDERED: amLODIPine BESYLATE 5 MG TAB PO SCH (10:00)
[2021-03-15 12:40] VITALS: BP 132/89
[2021-03-15 16:35] VITALS: BP 115/74
[2021-03-15] MEDS: MORPHINE SULF INJ 2 MG/ML SYRINGE 1ML IV PRN (19:20)
[2021-03-15 21:49] VITALS: BP 122/83
[2021-03-16 05:45] VITALS: BP 122/77
[2021-03-16] MEDS: NIFEdipine ER 30 MG TAB PO SCH (08:35)
[2021-03-16] MEDS: LABETALOL HCL 200 MG TAB PO SCH (08:36)
[2021-03-16 09:00] VITALS: BP 137/93
[2021-03-16 13:00] VITALS: BP 118/87
== END 2021-03-16 15:02 | disposition home or self-care (01) | DRG 199 ==
LOC: ER 07:52 → TELE 10:05 → TELE-WESTW 12:21
PROVIDERS: ADMIT Nurse Practitioner Acute Care; ATTEND Internal Medicine
DX: I16.1 Hypertensive emergency (principal); E03.9 Hypothyroidism, unspecified; N18.32 Chronic kidney disease, stage 3b; I16.9 Hypertensive crisis, unspecified; E78.5 Hyperlipidemia, unspecified; Z20.822 Contact with and (suspected) exposure to COVID-19; I25.10 Atherosclerotic heart disease of native coronary artery without angina pectoris; F06.4 Anxiety disorder due to known physiological condition; I12.9 Hypertensive chronic kidney disease with stage 1 through stage 4 chronic kidney disease, or unspecified chronic kidney disease; Z88.8 Allergy status to other drugs, medicaments and biological substances; Z80.1 Family history of malignant neoplasm of trachea, bronchus and lung; Z80.3 Family history of malignant neoplasm of breast; Z82.0 Family history of epilepsy and other diseases of the nervous system; Z86.73 Personal history of transient ischemic attack (TIA), and cerebral infarction without residual deficits
CPT/HCPCS: 36415; 71045; 74178; 80053; 82088; 84244; 84443; 84484; 85025; 87426; 93005; 96361; 96374; 96375; 99291; G0378; J2405

== ENCOUNTER 2023-01-23 16:24 | Emergency (ER) | payer MEDICAID ==
[~2023-01-23] VITALS: Ht 188 cm; Wt 76.4 kg
[~2023-01-23 16:24] MED LIST changes: -AML5T PO; +FURO40TA4 PO; +HYDR-3682 PO; +LABE300T3 PO; +LEV50T PO; +NIFE90TA75 PO; +OMEP20TA PO; +PERCOT PO; +POTA8TAB38 PO
[2023-01-23] MEDS ORDERED: cloNIDine HCL 0.1 MG TAB PO ONE ×2 (17:15→19:30)
[2023-01-23] MEDS ORDERED: LABETALOL HCL 5 MG/ML 4ML SYRINGE IV ONE (17:30)
[2023-01-23 18:27] LABS: Basophils # (auto) 0 10 ^3/uL (0-0.2); Mean Corpuscular Hemoglobin 30.7 pg (28.0-32.0); Mean Corpuscular Hgb Conc. 35.6 g/dL (32.0-36.0); Mean Corpuscular Volume 86.4 fL (80.0-100.0); Nucleated Red Blood Cells % 0.2 %
[2023-01-23 18:29] LABS: Basophils % (auto) 0.3 % (0.0-2.0); Eosinophils # (auto) 0 10 ^3/uL (0-0.8); Eosinophils % (auto) 0.2 % (0.0-7.0); Hematocrit 54.2 % (41.0-53.0); Hemoglobin 19.3 g/dL (13.5-17.5); Lymphocytes # (auto) 1.2 10 ^3/uL (0.4-5.4); Lymphocytes % (auto) 10.3 % (10.0-50.0); Monocytes # (auto) 0.3 10 ^3/uL (0-1.3); Monocytes % (auto) 2.3 % (0.0-12.0); Neutrophils # (auto) 9.9 10 ^3/uL (1.6-8.6); Neutrophils % (auto) 86.9 % (37.0-80.0); Red Blood Cells 6.28 10^6/uL (4.5-5.90); Red Cell Distribution Width 13.4 % (11.8-14.3); White Blood Cell 11.4 10^3/uL (4.4-10.8)
[2023-01-23 18:35] LABS: Albumin 4.5 g/dL (3.4-5.0); Calcium 9.1 mg/dL (8.5-10.1); Magnesium 2.6 mg/dL (1.6-2.6); Potassium 4.2 mmol/L (3.5-5.1)
[2023-01-23 18:38] LABS: Bilirubin, Total 2.8 mg/dL (0.2-1.0); Total Protein 7.7 g/dL (6.4-8.2)
[2023-01-23] MEDS ORDERED: HYDROcodone-ACET 10/325MG TAB PO ONE (19:30)
[2023-01-23] MEDS ORDERED: PROCHLORPERAZINE MALEATE 10 MG TAB PO ONE (20:15)
[2023-01-23 22:05] VITALS: BP 165/130
[2023-01-23] MEDS ORDERED: PROCHLORPERAZINE EDISYLATE 5 MG/ML 2ML VIAL IM ONE (22:30)
== END 2023-01-23 23:24 | disposition left against medical advice (07) ==
LOC: ER 16:32
DX: I16.0 Hypertensive urgency (principal); I12.9 Hypertensive chronic kidney disease with stage 1 through stage 4 chronic kidney disease, or unspecified chronic kidney disease; N18.9 Chronic kidney disease, unspecified; G43.909 Migraine, unspecified, not intractable, without status migrainosus; Z86.73 Personal history of transient ischemic attack (TIA), and cerebral infarction without residual deficits; Z88.6 Allergy status to analgesic agent; Z88.8 Allergy status to other drugs, medicaments and biological substances
CPT/HCPCS: 36415; 70450; 71045; 80053; 83605; 83735; 84484; 85025; 93005; 96372; 99285; J0780; Q0164

== ENCOUNTER 2024-10-27 16:02 | Emergency (ER) | payer MEDICAID ==
[~2024-10-27] VITALS: Ht 188 cm; Wt 80.9 kg
[~2024-10-27 16:02] MED LIST changes: -LABE300T3 PO; +LABE300T5 PO; -LEV50T PO; +LEVO-848 PO
[2024-10-27 16:07] VITALS: BP 245/173; RESP 18; TEMP 98.3; O2SAT 98
[2024-10-27] MEDS: cloNIDine HCL 0.1 MG TAB PO ONE (16:20)
--- NOTE | 2024-10-27 16:32 | ED.PDOC ---
HPI (NEURO) HPI Comments 53-year-old male With past medical history pertinent for TIA, CVA with residual left sided weakness, HTN, anxiety, CKD, presents to the ED with a chief complaint of headache onset 3 days. Patient states that he was on a ladder and then was found on the ground. He does not recall the event, but thinks he fell. Since then, patient has been experiencing headache, dizziness, nausea. 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 He has been seen and treated by PCP and [facility]. Was told by PCP to come to ED due to persistent headache s/p fall and increased LT sided weakness. Denies chest pain, shortness of breath, vomiting, diarrhea, fever, chills. No other symptoms or modifying factors present at this time. Patient states that his blood pressure is consistently in the 200s and he only uses Clonidine patches. He is resistant to all other medications per patient. Chief Complaint: High Blood Pressure Time Seen by MD: 16:05 Primary Care Provider: UNKNOWN Reviewed Notes: Nurses Notes, Medications, Allergies Information Source: Patient Mode of Arrival: Ambulatory Severity: Moderate Headache Severity: Moderate Timing: Days Duration: Since onset Prehospital treatment: None Headache Quality: Sharp Headache Location: Generalized Weakness Location: (L) Sided, (L) Arm, (L) Leg Circumstances: Spontaneous Symptoms: Weakness History of: TIA, Hypertension Modifying factors: Nothing Associated Signs and Symptoms: Headache, Weakness Past Medical History PAST MEDICAL HISTORY: CKF, CVA, HTN, Thyroid, TIA Surgical History: Appendectomy Family History Family History: Family hx of Cancer, Family hx of heart dileep Social History Smoker: Non-Smoker Alcohol: Denies ETOH Use Drugs: Denies Drug Use Lives In: Home Constitutional: reports: weakness; denies: chills, diaphoresis, fatigue, fever, malaise, sweats, others EENTM: denies: blurred vision, double vision, ear bleeding, ear discharge, ear drainage, ear pain, ear ringing, eye pain, eye redness, hearing loss, mouth pain, mouth swelling, nasal discharge, nose bleeding, nose congestion, nose pain, photophobia, tearing, throat pain, throat swelling, voice changes, others Respiratory: denies: cough, hemoptysis, orthopnea, SOB at rest, shortness of breath, SOB with excertion, stridor, wheezing, others Cardiovascular: denies: chest pain, dizzy spells, diaphoresis, Dyspnea on exertion, edema, irregular heart beat, left arm pain, lightheadedness, palpit ations, PND, syncope, others Gastrointestinal: reports: nausea; denies: abdomen distended, abdominal pain, blood streaked bowels, constipated, diarrhea, dysphagia, difficulty swallowing, hematemesis, melena, poor appetite, poor fluid intake, rectal bleeding, rectal pain, vomiting, others Genitourinary: denies: burning, dysuria, flank pain, frequency, hematuria, incontinence, penile discharge, penile sore, pain, testicle pain, testicle swelling, urgency, others Neurological: reports: dizziness, headache, left sided weakness, weakness, others (hypertension); denies: fainting, left sided numbness, numbness, paresthesia, pre-existing deficit, right sided numbness, right sided weakness, seizure, speech problems, tingling, tremors Musculoskeletal: denies: back pain, gout, joint pain, joint swelling, muscle pain, muscle stiffness, neck pain, others Integumetry: denies: bruises, change in color, change in hair/nails, dryness, laceration, lesions, lumps, rash, wounds, others Allergic/Immunocompromised: denies: Difficulty Healing, Frequent Infections, Hives, Itching, others Hematologic/Lymphatic: denies: anemia, blood clots, easy bleeding, easy bruising, swollen glands, others Endocrine: denies: excessive hunger, excessive sweating, excessive thirst, excessive urination, flushing, intolerance to cold, intolerance to heat, unexplained weight gain, unexplained weight loss, others Psychiatric: denies: anxiety, bipolar disorder, depression, hopeless, panic d isorder, schizophrenia, sleepless, suicidal, others All Other Systems: Reviewed and Negative Physical Exam General Appearance: No Apparent Distress, Normal HEENT: Normal ENT Inspection, Pharynx Normal, TMs Normal Neck: Full Range of Motion, Non-Tender, Normal, Normal Inspection Respiratory: Chest Non-Tender, Lungs Clear, No Accessory Muscle Use, No Respiratory Distress, Normal Breath Sounds Cardiovascular: No Edema, No JVD, No Murmur, No Gallop, Normal Peripheral Pulses, Regular Rate/Rhythm Breast Exam: Deferred Gastrointestinal: No Organomegaly, Non Tender, No Pulsatile Mass, Normal Bowel Sounds, Soft Genitalia: Deferred Pelvic: Deferred Rectal: Deferred Extremities: No calf tenderness, Normal capillary refill, Normal inspection, Normal range of motion, Non-tender, No pedal edema Musculoskeletal : Apperance: Normal Neurologic: Alert, 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 3/5 strength on the left upper extremity. 4/5 strength on the left lower extremity. Negative facial droop. Negative pronator drift.) Cerebellar Function: Normal Reflexes: Normal Skin: Dry, Normal Color, Warm Lymphatic: No Adenopathy EKG EKG : Pulse Rate (adult): 92 [place]: Normal Cardiac Rhythm: NSR Block: None Hypertrophy: LAE, MITCHELL ST: Normal Was a procedure done? Was a procedure done?: No Differential Diagnosis (SZ) CVA: CVA, Encephalopathy, SAH, TIA Headache: Epidural Hemorrhage, Intracerebral Hemorrhage, Subarachnoid Hemorrhage, Subdural Hemorrhage, Other (Hypertensive emergency, hypertensive urgency) X-Ray, Labs, Meds, VS Vital Signs Date Time Temp Pulse Resp B/P (MAP) Pulse Ox O2 Delivery O2 Flow Rate FiO2 10/27/24 17:12 92 10/27/24 16:20 246/183 10/27/24 16:17 92 10/27/24 16:07 98.3 99 18 246/183 (204) 98 98.3 245/173 (197) Lab Test 10/27/24 18:28 10/27/24 17:34 Range/Units Troponin I High Sensitivity 20 20 </=54 ng/L White Blood Count 10.4 4.4-10.8 10^3/uL Red Blood Count 5.20 4.5-5.90 10^6/uL Hemoglobin 16.0 13.5-17.5 g/dL Hematocrit 46.3 41.0-53.0 % Mean Corpuscular Volume 88.9 80.0-100.0 fL Mean Corpuscular Hemoglobin 30.7 28.0-32.0 pg Mean Corpuscular Hemoglobin Concent 34.6 32.0-36.0 g/dL Red Cell Distribution Width 13.6 11.8-14.3 % Platelet Count 204 140-450 10^3/uL Mean Platelet Volume 7.2 6.9-10.8 fL Neutrophils (%) (Auto) 84.5 H 37.0-80.0 % Lymphocytes (%) (Auto) 10.9 10.0-50.0 % Monocytes (%) (Auto) 3.3 0.0-12.0 % Eosinophils (%) (Auto) 0.6 0.0-7.0 % Basophils (%) (Auto) 0.7 0.0-2.0 % Neutrophils # (Auto) 8.8 H 1.6-8.6 10 ^3/uL Lymphocytes # (Auto) 1.1 0.4-5.4 10 ^3/uL Monocytes # (Auto) 0.3 0-1.3 10 ^3/uL Eosinophils # (Auto) 0.1 0-0.8 10 ^3/uL Basophils # (Auto) 0.1 0-0.2 10 ^3/uL Nucleated Red Blood Cells 0.2 % Sodium Level 140 136-145 mmol/L Potassium Level 4.4 3.5-5.1 mmol/L Chloride Level 107 98-107 mmol/L Carbon Dioxide Level 21 20-31 mmol/L Anion Gap 12 5-15 Blood Urea Nitrogen 42 H 9-23 mg/dL Creatinine 2.54 H 0.700-1.30 mg/dL Glomerular Filtration Rate Calc 29 >90 mL/min BUN/Creatinine Ratio 16.5 10.0-20.0 Serum Glucose 109 H 74-106 mg/dL Calcium Level 9.9 8.7-10.4 mg/dL Total Bilirubin 1.8 H 0.2-1.0 mg/dL Aspartate Amino Transferase (AST) 17 13-40 U/L Alanine Aminotransferase (ALT) 21 7-40 U/L Alkaline Phosphatase 90 46-116 U/L Total Protein 7.1 5.7-8.2 g/dL Albumin 4.7 3.2-4.8 g/dL Current Medications Medications (Trade) Dose Ordered Sig/Shayan Route Start Time Stop Time Status Last Admin Clonidine HCl (Catapres Tablet) 0.2 mg ONCE ONCE PO 10/27/24 16:15 10/27/24 16:16 DC 10/27/24 16:20 X-Ray, Labs, Meds, VS Comment CT Head IMPRESSION: 1. No acute intracranial abnormality. MDM: Patient with history as above presented with Headache and high blood pressure. History obtained from patient. Patient was nontoxic, stable, afebrile, ambulatory, no acute distress. Exam as above. Labs reviewed. CBC was unremarkable. No leukocytosis. No anemia. CMP did not show significant electrolyte abnormalities. BUN elevated at 42. Creatinine elevated 2.54. Troponin x2 were negative. EKG was reviewed by me. Normal sinus rhythm at 92 beats per minute. Biatrial enlargement. No AV blocks. No ST-T wave abnorm alities. Independently reviewed imaging. CT head did not show acute intracranial abnormality. Reviewed external records. All findings were discussed with the patient. Differential diagnosis considered. Overall presentation is consistent with hypertensive emergency. Low suspicion for acute CVA, subarachnoid hemorrhage, subdural hemorrhage, ACS. Patient was given clonidine in the ED. Plan was to admit the patient due to hypertensive emergency and due to risk factors as well as history of multiple strokes. Patient states that he does not want to be admitted because he states that he is resistant to all medications is a bleeding. Patient states that he has a follow up appointment with [facility] with hypertension specialist. His PCP just wanted to make sure he didn't have a brain bleed. This patient has elected to leave against medical advice. In my opinion, the patient has capacity to leave AMA. The patient is clinically sober, free from distracting injury, appears to have intact insight, judgment, and reason; therefore, the patient has the capacity to make decisions. I explained to the patient that these symptoms may represent a serious underlying medical condition and the patient verbalized understanding of my concerns and understands the consequences of leaving without complete evaluation. I had a discussion with the patient about their workup and results, and informed the patient what the next step in diagnosis and treatment would be, and they verbalized understanding of this as well. I explained the risks of leaving without further workup or treatment, which included reasonably foreseeable complications such as , serious injury, prolonged illness, and permanent disability. I discussed the specific benefits of additional treatment and also offered alternatives to departing AMA, such as assigning the patient a different provider or an alternate workup pathway. However, the patient declined and insisted on leaving against medical advice. I answered all of the patient's questions about their condition and I asked them to follow up with their PCP as soon as possible or return to this ER for further evaluation whenever they choose. Patient voiced understanding. Disposition: AMA This medical document was created using the [employer] dictation system. Although this document has been carefully reviewed, there may still be some phonetic and typographical errors, which are due to imperfections of the software program, and do not reflect any compromise in the patient's medical care. Time of 1ST Reevaluation: 16:35 Reevaluation 1ST: Unchanged Patient Education/Counseling: Diagnosis, Treatment, Prognosis Family Education/Counseling: No Family Present Departure 1 Departure Time of Disposition: 19:35 Impression: Primary Impression: Hypertensive emergency Additional Impressions: Headache Qualified Codes: R51.9 - Headache, unspecified CHANDRA (acute kidney injury) Disposition: LEFT AGAINST MEDICAL ADVICE Condition: Fair Critical Care Note Critical Care Time?: No Stability Stability form required: No Heart Score Heart Score: Heart Score Response (Comments) Value History N/A 0 EKG N/A 0 Age N/A 0 Risk Factors N/A 0 Troponin N/A 0 Total 0 I personally scribed for OSCAR CRUM MD ([email or web address]) on 10/27/24 at 16:39. Electronically submitted by Nneka Man ([email or web address]). I personally scribed for OSCAR CRUM MD ([email or web address]) on 10/27/24 at 16:40. Electronically submitted by Nneka Man ([email or web address]). FLEX DAVE Oct 27, 2024 16:32 OSCAR CRUM MD Oct 27, 2024 16:39
--- NOTE | 2024-10-27 16:35 | ECG ---
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
--- NOTE | 2024-10-27 16:57 | DVH ---
EXAM: CT HEAD WITHOUT CONTRAST INDICATION: Fall injury x3d headache TECHNIQUE: CT of the head without intravenous contrast. Radiation Dose : 1. Head: CT Dose: CTDI volume is 61.84 mGy. Dose-length product is 1094.82 mGy*cm The dose indicators for CT are the volume Computed Tomography (CT) Dose Index (CTDIvol) and the Dose Length Product (DLP), and are measured in units of mGy and mGy-cm, respectively. These indicators are not patient dose, but values generated from the CT scanner acquisition factors. The report includes radiation exposure data for exposures received during this examination. COMPARISON: CT HEAD WITHOUT CONTRAST on DOS: 01/23/23 FINDINGS: Dolochoectasia of the posterior circulation. Findings stable. There is no evidence of acute intracranial hemorrhage, extra-axial collection, mass effect, midline s hift, herniation or hydrocephalus. The ventricles, sulci and cisterns are age appropriate. The rossi-white differentiation is intact. Patchy periventricular and subcortical white matter hypoattenuation is nonspecific but may be related to small vessel ischemic disease. The visualized paranasal sinuses and mastoid air cells are clear. The surrounding soft tissues and osseous structures are unremarkable. IMPRESSION: 1. No acute intracranial abnormality. Radiation optimization: All CT scans at this facility use at least one of these dose optimization pete hniques: automated exposure control mA and/or kV adjustment per patient size (includes targeted exam s where dose is matched to clinical indication) or iterative reconstruction.
[2024-10-27 17:12] VITALS: PULSE 92
[2024-10-27 17:49] LABS: Basophils # (auto) 0.1 10 ^3/uL (0-0.2); Basophils % (auto) 0.7 % (0.0-2.0); Eosinophils # (auto) 0.1 10 ^3/uL (0-0.8); Eosinophils % (auto) 0.6 % (0.0-7.0); Hematocrit 46.3 % (41.0-53.0); Lymphocytes # (auto) 1.1 10 ^3/uL (0.4-5.4); Lymphocytes % (auto) 10.9 % (10.0-50.0); Mean Corpuscular Hemoglobin 30.7 pg (28.0-32.0); Mean Corpuscular Hgb Conc. 34.6 g/dL (32.0-36.0); Mean Corpuscular Volume 88.9 fL (80.0-100.0); Monocytes # (auto) 0.3 10 ^3/uL (0-1.3); Monocytes % (auto) 3.3 % (0.0-12.0); Neutrophils # (auto) 8.8 10 ^3/uL (1.6-8.6); Neutrophils % (auto) 84.5 % (37.0-80.0); Nucleated Red Blood Cells % 0.2 %; Platelet Count (auto) 204 10^3/uL (140-450); Red Cell Distribution Width 13.6 % (11.8-14.3); White Blood Cell 10.4 10^3/uL (4.4-10.8)
[2024-10-27 18:06] LABS: Alanine Aminotransferase 21 U/L (7-40); Albumin 4.7 g/dL (3.2-4.8); Alkaline Phosphatase 90 U/L (46-116); Anion Gap 12 (5-15); Aspartate Aminotransferase 17 U/L (13-40); BUN/Creatinine Ratio 16.5 (10.0-20.0); Calcium 9.9 mg/dL (8.7-10.4); Carbon Dioxide 21 mmol/L (20-31); Chloride 107 mmol/L (98-107); Potassium 4.4 mmol/L (3.5-5.1); Sodium 140 mmol/L (136-145); Total Protein 7.1 g/dL (5.7-8.2)
[2024-10-27 18:43] LABS: Bilirubin, Total 1.8 mg/dL (0.2-1.0); Blood Urea Nitrogen 42 mg/dL (9-23); Glucose 109 mg/dL (74-106)
--- NOTE | 2024-10-28 11:35 | ECG ---
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
== END 2024-10-27 19:25 | disposition left against medical advice (07) ==
LOC: ER 16:02
DX: I16.1 Hypertensive emergency (principal); I12.9 Hypertensive chronic kidney disease with stage 1 through stage 4 chronic kidney disease, or unspecified chronic kidney disease; N17.9 Acute kidney failure, unspecified; R51.9 Headache, unspecified; N18.9 Chronic kidney disease, unspecified; Z86.73 Personal history of transient ischemic attack (TIA), and cerebral infarction without residual deficits; Z90.49 Acquired absence of other specified parts of digestive tract
CPT/HCPCS: 36415; 70450; 80053; 84484; 85025; 93005

== ENCOUNTER 2025-02-21 18:26 | Inpatient (IN) | payer MEDICAID ==
[~2025-02-21] VITALS: Ht 185.4 cm; Wt 82.0 kg
[2025-02-21 18:54] LABS: Hematocrit 35.6 % (41.0-53.0); Hemoglobin 13.1 g/dL (13.5-17.5); Mean Corpuscular Hemoglobin 30.9 pg (28.0-32.0); Mean Corpuscular Volume 83.9 fL (80.0-100.0); Nucleated Red Blood Cells % 0.1 %
[2025-02-21 19:09] LABS: INR 1.01 (0.9-1.15); Partial Thromboplastin Time 28.9 SEC (24.5-34.5); Prothrombin Time 10.7 sec (9.3-11.8)
[2025-02-21 19:12] LABS: Alanine Aminotransferase 17 U/L (7-40); Albumin 4.5 g/dL (3.2-4.8); Alkaline Phosphatase 78 U/L (46-116); Anion Gap 11 (5-15); BUN/Creatinine Ratio 14.8 (10.0-20.0); Calcium 9.8 mg/dL (8.7-10.4); Carbon Dioxide 23 mmol/L (20-31); Chloride 105 mmol/L (98-107); Glucose 102 mg/dL (74-106); Potassium 3.6 mmol/L (3.5-5.1); Sodium 139 mmol/L (136-145); Total Protein 6.8 g/dL (5.7-8.2)
[2025-02-21 19:13] LABS: Bilirubin, Total 0.9 mg/dL (0.2-1.0)
[2025-02-21 19:14] LABS: Blood Urea Nitrogen 75 mg/dL (9-23)
[2025-02-21] MEDS: hydrALAZINE HCL 20 MG/ML VL IV ONE (19:27)
[2025-02-21 19:40] VITALS: PULSE 90; O2SAT 98
--- NOTE | 2025-02-21 20:01 | DVH ---
EXAM: CT HEAD WITHOUT CONTRAST INDICATION: near syncope TECHNIQUE: CT of the head without intravenous contrast. Radiation Dose Information: CT Dose: CTDI volume is 67.94 mGy. Dose-length product is 1253.68 mGy*cm The dose indicators for CT are the volume Computed Tomography (CT) Dose Index (CTDIvol) and the Dose Length Product (DLP), and are measured in units of mGy and mGy-cm, respectively. These indicators are not patient dose, but values generated from the CT scanner acquisition factors. The report includes radiation exposure data for exposures received during this examination. COMPARISON: CT HEAD WITHOUT CONTRAST on DOS: 10/27/24, CT HEAD WITHOUT CONTRAST on DOS: 01/23/23 FINDINGS: There is no evidence of acute intracranial hemorrhage, extra-axial collection, mass effect, midline s hift, herniation or hydrocephalus. Small lacunar infarct external capsule right basal ganglia.' No acute intracranial hemorrhage. The ventricles, sulci and cisterns are age appropriate. The rossi-white differentiation is intact. Patchy periventricular and subcortical white matter hypoattenuation is nonspecific but may be related to small vessel ischemic disease. The visualized paranasal sinuses and mastoid air cells are clear. The surrounding soft tissues and osseous structures are unremarkable. IMPRESSION: 1. No acute intracranial abnormality. 2. Old lacunar infarct external capsule right basal ganglia. HS:Y
--- NOTE | 2025-02-21 20:19 | DVH ---
CHEST RADIOGRAPH Indication: chest pain Technique: Single frontal view of the chest was obtained Comparison: XY CHEST PORTABLE on DOS: 01/23/23, CHEST PORTABLE on DOS: 03/14/21, CHEST PORTABLE on DOS: 04/18/20 FINDINGS: Lines and Tubes: None Lungs: No focal consolidation. Pleura: No effusion. No pneumothorax. Cardiomediastinal contours: Unremarkable Bones: No acute osseous abnormality. IMPRESSION: 1. No acute cardiopulmonary disease. HS:Y
[2025-02-21 20:40] VITALS: PULSE 103; RESP 22; O2SAT 98
[2025-02-21] MEDS: NICARDIPINE HCL IN SODIUM CHLO 200 ML IV ONE (20:48)
--- NOTE | 2025-02-21 21:17 | ED.PDOC ---
History of Present Illness HPI Comments 54 y/o M presents with c/c chest, head, and left neck and head pain. Significant history for anxiety, CKF IV, cerebral white matter disease, 4xCVA's, HTN, thyroid disease, 15xTIA's, PTSD, SIRS, and angiogram w/clot removal. Denies any shortness of breath, palpitations, nausea, vomiting, or further associated symptoms. Upon arrival to ED, patient was found hypertensive at 239/160 and 239/164. Chief Complaint: Chest Pain Time Seen by MD: 18:30 Primary Care Provider: UNKNOWN Reviewed Notes: Nurses Notes, Medications, Allergies Allergies: Coded Allergies: Tramadol (Unverified Allergy, Severe, 02/26/19) Acetaminophen (Verified Allergy, Intermediate, RASH, 05/16/18) Phenobarbital (Verified Allergy, Intermediate, 05/13/10) Phenytoin (Verified Allergy, Intermediate, 05/13/10) BREAKS OUT IN WELTS Levetiracetam (Verified Allergy, Unknown, 09/25/14) Mirtazapine (Verified Allergy, Unknown, 09/25/14) Morphine (Verified Allergy, Unknown, 10/27/24) Trazodone (Verified Allergy, Unknown, 09/25/14) Uncoded Allergies: ALL B/P MEDS EXCEPT CLONIDINE (Allergy, Unknown, 02/21/25) Home Meds Active Scripts Isosorbide Dinitrate (Isosorbide Dinitrate) 10 Mg Tab, 20 MG PO TID@06,12,18, #90 TAB Prov:HODA JAIN MD 04/22/20 Hydralazine HCl (Hydralazine HCl) 25 Mg Tab, 25 MG PO Q6HR, #120 TAB Prov:HODA JAIN MD 04/22/20 Reported Medications Levothyroxine Sodium (SYNTHROID TABLET) 50 Mcg Tb, 1 TAB PO DAILY, #30 TAB 5 Refills 03/14/21 Omeprazole (Gnp Omeprazole) 20 Mg Tab, 40 MG PO, TAB 03/14/21 Hydroxyzine Hcl (Hydroxyzine Hcl) 25 Mg Tab, 25 MG PO for 30 Days, MG 03/14/21 Potassium Chloride (Klor-Con 8) 8 Meq Tab, 8 MEQ PO, TAB 03/14/21 Furosemide (Furosemide) 40 Mg Tab, 40 MG PO DAILY for 30 Days 03/14/21 Nifedipine (Nifedipine Er) 90 Mg Tab, 1 TAB PO DAILY, #30 TAB 5 Refills 03/14/21 Labetalol Hcl (Labetalol Hcl) 300 Mg Tab, 300 MG PO for 30 Days, MG 03/14/21 Oxycodone W/ Acetaminophen (Percocet 5/325MG) 1 Tab Tb, 1 TAB PO QID, #120 TAB 03/14/21 Aspirin (Aspir-Low) 81 Mg Tab, 81 MG PO DAILY for 30 Days, MG 04/19/20 Information Source: Patient Mode of Arrival: Ambulatory Severity: Moderate Timing: Days Duration: Since onset Prehospital treatment: None Past Medical History PAST MEDICAL HISTORY: Anxiety, CKF (stage IV ), CVA (4x), HTN, Thyroid, TIA (15x) Past Medical History (Other): cerebral white matter disease PTSD SIRS Surgical History: Appendectomy Surgical History (Other): angiogram with clot removal Family History Family History: Family hx of Cancer, Family hx of heart dileep Social History Smoker: Non-Smoker Alcohol: Denies ETOH Use Drugs: Denies Drug Use Lives In: Home All Other Systems: Reviewed and Negative (Comprehensive systems review obtained and negative except for what is stated in the HPI.) Physical Exam General Appearance: No Apparent Distress, Normal, Other (pale appearing ) HEENT: Normal ENT Inspection, Pharynx Normal, TMs Normal Neck: Full Range of Motion, Non-Tender, Normal, Normal Inspection Respiratory: Chest Non-Tender, Lungs Clear, No Accessory Muscle Use, No Respiratory Distress, Normal Breath Sounds Cardiovascular: No Edema, No JVD, No Murmur, No Gallop, Normal Peripheral Pulses, Regular Rate/Rhythm Breast Exam: Deferred Gastrointestinal: No Organomegaly, Non Tender, No Pulsatile Mass, Normal Bowel Sounds, Soft Genitalia: Deferred Pelvic: Deferred Rectal: Deferred Extremities: No calf tenderness, Normal capillary refill, Normal inspection, Normal range of motion, Non-tender, No pedal edema Musculoskeletal : Apperance: Normal Neurologic: Alert, research specialist II-XII nml as Tested, No Motor Deficits, Normal Affect, Normal Mood, No Sensory Deficits Cerebellar Function: Normal Reflexes: Normal Skin: Dry, Pallor, Warm Lymphatic: No Adenopathy Was a procedure done? Was a procedure done?: No EKG EKG : Pulse Rate (adult): 94 [place]: Normal Cardiac Rhythm: NSR Block: None Hypertrophy: None ST: Normal Differential Dx Considerations may include: [place], PE, ACS, URI, PNA, viral syndrome, costochondritis, pericarditis, angina, among others X-Ray, Labs, Meds, VS Vital Signs Date Time Temp Pulse Resp B/P (MAP) Pulse Ox O2 Delivery O2 Flow Rate FiO2 02/21/25 21:43 101 02/21/25 21:30 92 13 134/84 (101) 99 02/21/25 21:17 94 02/21/25 21:15 103 22 125/76 (92) 99 02/21/25 21:00 103 22 157/87 (110) 99 02/21/25 20:40 97.7 103 22 219/139 (165) 99 97.7 02/21/25 20:00 101 234/157 02/21/25 19:45 90 15 207/140 (162) 98 02/21/25 19:40 90 98 Room Air* 0 21 02/21/25 19:27 77 02/21/25 19:27 252/163 02/21/25 18:36 94 02/21/25 18:29 97.7 86 20 239/160 (186) 99 97.7 Lab Test 02/21/25 19:48 02/21/25 18:43 Range/Units Troponin I High Sensitivity 45 43 </=54 ng/L White Blood Count 10.7 4.4-10.8 10^3/uL Red Blood Count 4.24 L 4.5-5.90 10^6/uL Hemoglobin 13.1 L 13.5-17.5 g/dL Hematocrit 35.6 L 41.0-53.0 % Mean Corpuscular Volume 83.9 80.0-100.0 fL Mean Corpuscular Hemoglobin 30.9 28.0-32.0 pg Mean Corpuscular Hemoglobin Concent 36.8 H 32.0-36.0 g/dL Red Cell Distribution Width 13.1 11.8-14.3 % Platelet Count 154 140-450 10^3/uL Mean Platelet Volume 7.3 6.9-10.8 fL Neutrophils (%) (Auto) 77.8 37.0-80.0 % Lymphocytes (%) (Auto) 16.3 10.0-50.0 % Monocytes (%) (Auto) 3.7 0.0-12.0 % Eosinophils (%) (Auto) 1.3 0.0-7.0 % Basophils (%) (Auto) 0.9 0.0-2.0 % Neutrophils # (Auto) 8.3 1.6-8.6 10 ^3/uL Lymphocytes # (Auto) 1.7 0.4-5.4 10 ^3/uL Monocytes # (Auto) 0.4 0-1.3 10 ^3/uL Eosinophils # (Auto) 0.1 0-0.8 10 ^3/uL Basophils # (Auto) 0.1 0-0.2 10 ^3/uL Nucleated Red Blood Cells 0.1 % Prothrombin Time 10.7 9.3-11.8 sec Prothrombin Time INR 1.01 0.9-1.15 Activated Partial Thromboplast Time 28.9 24.5-34.5 SEC Sodium Level 139 136-145 mmol/L Potassium Level 3.6 3.5-5.1 mmol/L Chloride Level 105 98-107 mmol/L Carbon Dioxide Level 23 20-31 mmol/L Anion Gap 11 5-15 Blood Urea Nitrogen 75 H 9-23 mg/dL Creatinine 5.08 H 0.700-1.30 mg/dL Glomerular Filtration Rate Calc 13 >90 mL/min BUN/Creatinine Ratio 14.8 10.0-20.0 Serum Glucose 102 74-106 mg/dL Calcium Level 9.8 8.7-10.4 mg/dL Total Bilirubin 0.9 0.2-1.0 mg/dL Aspartate Amino Transferase (AST) 18 13-40 U/L Alanine Aminotransferase (ALT) 17 7-40 U/L Alkaline Phosphatase 78 46-116 U/L Total Protein 6.8 5.7-8.2 g/dL Albumin 4.5 3.2-4.8 g/dL Current Medications Medications (Trade) Dose Ordered Sig/Shayan Route Start Time Stop Time Status Last Admin Hydralazine HCl (Apresoline Injection) 20 mg ONCE ONCE IV 02/21/25 19:30 02/21/25 19:31 DC 02/21/25 19:27 Nicardipine HCl 250 ml @ 50 mls/hr Q5H IV 02/21/25 20:15 02/21/25 20:00 [place] [id number] Ph: [phone] DIAGNOSTIC IMAGING Diagnostic Imaging Report : [id number] Signed PATIENT: MARGARET MARTINEZ ACCT: [id number] UNIT: [id number] : 1970 LOC: ER ROOM / BED: / AGE / SEX: 54 / M ADM STATUS: REG ER SERVICE 56 ORDERING PHYSICIAN: ANTONIO RAMÍREZ MD PROCEDURE(s): HWOCT - HEAD WITHOUT CONTRAST REASON: near syncope ORDER NUMBER(s): [id number], ACCESSION NUMBER(s): [id number] EXAM: CT HEAD WITHOUT CONTRAST INDICATION: near syncope TECHNIQUE: CT of the head without intravenous contrast. Radiation Dose Information: CT Dose: CTDI volume is 67.94 mGy. Dose-length product is 1253.68 mGy*cm The dose indicators for CT are the volume Computed Tomography (CT) Dose Index (CTDIvol) and the Dose Length Product (DLP), and are measured in units of mGy and mGy-cm, respectively. These indicators are not patient dose, but values generated from the CT scanner acquisition factors. The report includes radiation exposure data for exposures received during this examination. COMPARISON: CT HEAD WITHOUT CONTRAST on DOS: 10/27/24, CT HEAD WITHOUT CONTRAST on DOS: 01/23/23 FINDINGS: There is no evidence of acute intracranial hemorrhage, extra-axial collection, mass effect, midline shift, herniation or hydrocephalus. Small lacunar infarct external capsule right basal ganglia.' No acute intracranial hemorrhage. The ventricles, sulci and cisterns are age appropriate. The rossi-white differentiation is intact. Patchy periventricular and subcortical white matter hypoattenuation is nonspecific but may be related to small vessel ischemic disease. The visualized paranasal sinuses and mastoid air cells are clear. The surrounding soft tissues and osseous structures are unremarkable. IMPRESSION: 1. No acute intracranial abnormality. 2. Old lacunar infarct external capsule right basal ganglia. HS:Y ATED BY: HECTOR WRIGHT Jr., DO DICTATED DATE/TIME: 02/21/251958 SIGNED BY: HECTOR WRIGHT Jr., SIGNED DATE/TIME: 02/21/251958 CC: [address], [place] - [address] Ph: [phone] DIAGNOSTIC IMAGING Diagnostic Imaging Report : [id number] Signed PATIENT: MARGARET MARTINEZ ACCT: [id number] UNIT: [id number] : 1970 LOC: ER ROOM / BED: / AGE / SEX: 54 / M ADM STATUS: REG ER SERVICE 31 ORDERING PHYSICIAN: DIANA PETERS MD PROCEDURE(s): CXRP - CHEST PORTABLE REASON: chest pain ORDER NUMBER(s): [id number], ACCESSION NUMBER(s): [id number] CHEST RADIOGRAPH Indication: chest pain Technique: Single frontal view of the chest was obtained Comparison: XY CHEST PORTABLE on DOS: 01/23/23, CHEST PORTABLE on DOS: 03/14/21, CHEST PORTABLE on DOS: 04/18/20 FINDINGS: Lines and Tubes: None Lungs: No focal consolidation. Pleura: No effusion. No pneumothorax. Cardiomediastinal contours: Unremarkable Bones: No acute osseous abnormality. IMPRESSION: 1. No acute cardiopulmonary disease. HS:Y ATED BY: HECTOR WRIGHT Jr., DO DICTATED DATE/TIME: 02/21/252016 SIGNED BY: HECTOR WRIGHT Jr., DO SIGNED DATE/TIME: 02/21/252016 CC: Time of 1ST Reevaluation: 19:00 Reevaluation 1ST: Unchanged Patient Education/Counseling: Diagnosis, Treatment Family Education/Counseling: No Family Present Additional Information Previous visits reviewed: April 18, 2020 and October 27, 2024 encounter for hypertensive emergencies The following tests were ordered, and results were reviewed by me: CT head w/o contrast, troponin, EKG, CXR, PTPTT, CMP, CBC Additional Information was gathered from interviewing the following independent historians: N/A I reviewed and agreed with the following test results read by other providers: CT head w/o contrast, CXR I discussed treatment and results with medical personnel and: patient SEPSIS Sepsis Screen Date sepsis recognized/suspect: Feb 21, 2025 Time Sepsis recognized/suspect: 1836 Recent Procedure: No On Antibiotic Therapy: No Respiratory Rate >20: No Heart Rate >90: No Temp<36 C (96.8 F) or >38.3 C: No SBP <90 or MAP <65 mmHG: No New Acute Mental Status Change: No Is the patient on CPAP, BIPAP,: No Physician Orders Troponin-I Hs (02/22/25 00:00) Troponin-I Hs (02/22/25 03:00) Troponin-I Hs (02/22/25 06:00) Chest Portable (02/21/25 18:32) Head Without Contrast (02/21/25 18:57) Nicardipine 25mg/250ml Bag Kit (Cardene) (02/21/25 20:15) Vital Signs Date Time Temp Pulse Resp B/P (MAP) Pulse Ox O2 Delivery O2 Flow Rate FiO2 02/21/25 21:43 101 02/21/25 21:30 92 13 134/84 (101) 99 02/21/25 21:17 94 02/21/25 21:15 103 22 125/76 (92) 99 02/21/25 21:00 103 22 157/87 (110) 99 02/21/25 20:40 97.7 103 22 219/139 (165) 99 97.7 02/21/25 20:00 101 234/157 02/21/25 19:45 90 15 207/140 (162) 98 02/21/25 19:40 90 98 Room Air* 0 21 02/21/25 19:27 77 02/21/25 19:27 252/163 02/21/25 18:36 94 02/21/25 18:29 97.7 86 20 239/160 (186) 99 97.7 Laboratory Tests Test 02/21/25 18:43 White Blood Count 10.7 10^3/uL (4.4-10.8) Medications Medications Dose Ordered Sig/Shayan Route Start Time Stop Time Status Last Admin Dose Admin Hydralazine HCl 20 mg ONCE ONCE IV 02/21/25 19:30 02/21/25 19:31 DC 02/21/25 19:27 Nicardipine HCl 250 ml @ 50 mls/hr Q5H IV 02/21/25 20:15 02/21/25 20:00 Departure 1 Departure Time of Disposition: 22:02 (Patient presented with hypertension and symptoms concerning for hypertensive emergency. Patient is receiving iv blood pressure m edications requiring intensive monitoring. Data: 1. I ordered and reviewed the result of at least 3 labs including a CBC, BMP, and Urinalysis. 2. I independently interpreted the following tests: CT Brain: Which appears benign. EKG which is Normal Sinus RhythmRisk:This patient has a high risk of morbidity due to further diagnostic testing or treatment and may suffer from an acute ca rdiac disorder. Workup reveals hypertensive emergency and patient should be admitted for further workup. and possible expert consultation. ) Impression: Primary Impression: Hypertensive emergency Additional Impression: acute chest pain rule out [place] Disposition: ADMITTED INPATIENT Admit to: Med Surg Condition: Serious Critical Care Note Critical Care Time?: Yes Critical care comment: Hypertensive emergency Authorized and Performed by: Antonio Ramírez MD Total critical care time: Approximately 118 minutes Due to a high probability of clinically significant, life threatening deterioration, the patient required my highest level of preparedness to intervene emergently and I personally spent this critical care time directly and personally managing the patient. This critical care time included obtaining a history; examining the patient; pulse oximetry; ordering and review of studies; arranging urgent treatment with development of a management plan; evaluation of patient's response to treatment; frequent reassessment; and, discussions with other providers. This critical care time was performed to assess and manage the high probability of imminent, life-threatening deterioration that could result in multi-organ failure. It was exclusive of separately billable procedures and treating other patients and teaching time. Please see my other sections and the rest of the note for further information on patient assessment and treatment. Stability Stability form required: No Heart Score Heart Score: Heart Score Response (Comments) Value History Moderate Suspicious 1 EKG Normal 0 Age 45-64 1 Risk Factors >3 or Hx ASHD 2 Troponin Normal limit 0 Total 4 I personally scribed for ANTONIO RAMÍREZ MD ([email or web address]) on 02/21/25 at 21:17. Electronically submitted by Merrick Elizalde ([email or web address]). ANTONIO RAMÍREZ MD Feb 21, 2025 21:17
--- NOTE | 2025-02-21 21:44 | ECG ---
[facility] Test Date: 2025-02-21 Test Time: 21:43:29 Pat Name: MARGARET MARTINEZ Department: ED Room: [address] [place] [address] Gender: M Rn Recruitment: BARB : 1970 Requested By: DIANA PETERS Order Number: [id number] Reading MD: Charles Abreu Measurements Intervals [place] Rate: 101 P: 70 [place]: 167 QRS: 47 QRSD: 101 T: 7 QT: 401 QTc: 520 Interpretive Statements Sinus tachycardia LAE, consider biatrial enlargement Left ventricular hypertrophy Nonspecific T abnormalities, lateral leads Borderline ST elevation, lateral leads consider inferior lateral ischemia Prolonged QT interval Electronically Signed On 02-25-2025 15:52:29 PDT by Charles Abreu Please click the below link to view image of tracing.
[2025-02-21] MEDS ORDERED: DOCUSATE SOD 100 MG CAP PO PRN (22:30)
--- NOTE | 2025-02-21 23:12 | DVHHP2 ---
History of Present Illness Reason for Visit: Hypertensive emergency History of Present Illness The patient is a 54-year-old male with multiple past medical history including acute on chronic renal failure, hypertensive urgency, thyroid disease, and PTSD who presented to [facility] ED with complaint of chest pain. Patient reports he has been experiencing intermittent chest pain, associated with headache, left neck pain, and generalized weakness. Patient was seen and evaluated in the ED, laboratory data shows WBC 10.7, platelets 154, sodium 139, potassium 3.6, BUN 75, creatinine 5.08, GFR 13, glucose 102, calcium 9.8, troponin 45, blood pressure 239/160 trending down to 134/84, heart rate 92, temperature 97.7 F, O2 saturation 99% on room air. Head CT showed no acute intracranial abnormality, noted old lacunar infarct external capsule right basal ganglia. Chest x-ray show no acute cardiopulmonary disease. Patient was started on nicardipine drip, please see medication orders section in the computer. On my assessment, at bedside, patient denied chest pain at this moment, no dizziness, no headache, no diaphoresis, no shortness of breaths, no nausea, no vomiting, no fever, no chills. Patient was admitted for further evaluation and medical management. Past Medical History Anxiety, CKF (stage IV ), CVA (4x), HTN, Thyroid, TIA (15x), Cerebral white matter disease, PTSD, SIRS Past Surgical History Appendectomy, Angiogram with clot removal Family History Reviewed, noncontributory to the management of this case. Past Social History The patient lives at home, denies smoking, alcohol or illicit drugs abuse. Review of Systems Constitutional: Yes: Weakness; No: Fever, Chills, Sweats, Malaise, Other Eyes: No: Pain, Vision change, Conjunctivae inflammation, Eyelid inflammation, Other, Redness ENT: No: Ear pain, Ear discharge, Nose pain, Nose discharge, Nose congestion, Mouth pain, Mouth swelling, Throat pain, Throat swelling, Other Respiratory: No: Cough, Dry, Shortness of breath, SOB with excertion, Wheezing, Hemoptysis, Pleuritic Pain, Sputum, Wheezing, Other Cardiovascular: Chest Pain, Other (Hypertension); No: Palpitations, Orthopnea, Paroxysmal Noc. Dyspnea, Edema, Lt Headedness Gastrointestinal: No: Nausea, Vomiting, Abdominal Pain, Diarrhea, Constipation, Melena, Hematochezia, Other Genitourinary: No Dysuria, No Frequency, No Incontinence, No Hematuria, No Retention, No Other Musculoskeletal: neck pain; No: other, shoulder pain, arm pain, back pain, hand pain, leg pain, foot pain Skin: No: Rash, Lesions, Jaundice, Bruising, Other Neurological: Other (Headache); No: Weakness, Numbness, Incoordination, Change in speech, Confusion, Seizures Allergies: Coded Allergies: Tramadol (Unverified Allergy, Severe, 02/26/19) Acetaminophen (Verified Allergy, Intermediate, RASH, 05/16/18) Phenobarbital (Verified Allergy, Intermediate, 05/13/10) Phenytoin (Verified Allergy, Intermediate, 05/13/10) BREAKS OUT IN WELTS Levetiracetam (Verified Allergy, Unknown, 09/25/14) Mirtazapine (Verified Allergy, Unknown, 09/25/14) Morphine (Verified Allergy, Unknown, 10/27/24) Alprazolam (Verified Adverse Reaction, Intermediate, vomiting, 02/21/25) Amlodipine (Verified Adverse Reaction, Intermediate, vomiting, 02/21/25) Ciprofloxacin (Verified Adverse Reaction, Intermediate, vomiting, 02/21/25) Clonidine (Verified Adverse Reaction, Intermediate, vomiting when taking po , 02/21/25) po makes pt vomit, can tolerate the patch Enalapril (Verified Adverse Reaction, Intermediate, vomiting, 02/21/25) Gabapentin (Verified Adverse Reaction, Intermediate, vomiting, headache, 02/21/25) Hydrochlorothiazide (Verified Adverse Reaction, Intermediate, vomiting, 02/21/25) Hydrocodone (Verified Adverse Reaction, Intermediate, vomiting, headache, 02/21/25) Losartan (Verified Adverse Reaction, Intermediate, vomiting, 02/21/25) Magnesium Oxide (Verified Adverse Reaction, Intermediate, vomiting, 02/21/25) Metoprolol (Verified Adverse Reaction, Intermediate, vomiting, 02/21/25) Omeprazole (Verified Adverse Reaction, Intermediate, vomiting, 02/21/25) Pantoprazole (Verified Adverse Reaction, Intermediate, vomiting, 02/21/25) Potassium Chloride (Verified Adverse Reaction, Intermediate, vomiting, 02/21/25) Sucralfate (Verified Adverse Reaction, Intermediate, vomiting, 02/21/25) Sumatriptan (Verified Adverse Reaction, Intermediate, vomiting, 02/21/25) Trazodone (Verified Adverse Reaction, Intermediate, severe headache, 02/21/25) Uncoded Allergies: ALL B/P MEDS EXCEPT CLONIDINE (Allergy, Unknown, 02/21/25) Medications Current Medications Medications Dose Ordered Sig/Shayan Route Start Time Stop Time Status Last Admin Dose Admin Aspirin 81 mg DAILY PO 02/22/25 10:00 Levothyroxine Sodium 50 mcg QAM@0600 PO 02/22/25 06:00 Clonidine HCl 0.1 mg Q4HP PRN PO 02/21/25 22:30 Sodium Chloride 10 ml Q8HR IV 02/22/25 06:00 Ondansetron HCl 4 mg Q4HP PRN IV 02/21/25 22:30 Docusate Sodium 100 mg BIDPRN PRN PO 02/21/25 22:30 Ibuprofen 600 mg Q6HP PRN PO 02/21/25 22:30 Clonidine HCl 0.2 mg TID PO 02/22/25 06:00 Famotidine 20 mg DAILY IV 02/22/25 10:00 Exam Vital Signs Vital Signs Date Time Temp Pulse Resp B/P (MAP) Pulse Ox O2 Delivery O2 Flow Rate FiO2 02/21/25 21:43 101 02/21/25 21:30 13 134/84 (101) 99 02/21/25 20:40 97.7 97.7 02/21/25 19:40 Room Air* 0 21 General Appearance: Alert, Oriented X3, Cooperative, No acute distress HEENT: Atraumatic, PERRLA, EOMI, Mucous membr. moist/pink Respiratory: Clear to auscultation, Normal air movement Cardiovascular: Regular rate, Normal S1, Normal S2, No murmurs Abdominal: Normal bowel sounds, Soft, No tenderness, No hepatospenomegaly, No masses Extremities: No clubbing, No cyanosis, No edema, Normal pulses, No tenderness/swelling Skin: No rashes, No breakdown, No significant lesion Neuro: Normal speech, Normal tone, Sensation intact, Cranial nerves 3-12 NL, Reflexes 2+, Other (Generalized weakness) Psych/Mental Status: Mental status NL, Mood NL Labs/Xrays Labs Test 02/21/25 19:48 02/21/25 18:43 Range/Units Troponin I High Sensitivity 45 </=54 ng/L White Blood Count 10.7 4.4-10.8 10^3/uL Red Blood Count 4.24 L 4.5-5.90 10^6/uL Hemoglobin 13.1 L 13.5-17.5 g/dL Hematocrit 35.6 L 41.0-53.0 % Mean Corpuscular Volume 83.9 80.0-100.0 fL Mean Corpuscular Hemoglobin 30.9 28.0-32.0 pg Mean Corpuscular Hemoglobin Concent 36.8 H 32.0-36.0 g/dL Red Cell Distribution Width 13.1 11.8-14.3 % Platelet Count 154 140-450 10^3/uL Mean Platelet Volume 7.3 6.9-10.8 fL Neutrophils (%) (Auto) 77.8 37.0-80.0 % Lymphocytes (%) (Auto) 16.3 10.0-50.0 % Monocytes (%) (Auto) 3.7 0.0-12.0 % Eosinophils (%) (Auto) 1.3 0.0-7.0 % Basophils (%) (Auto) 0.9 0.0-2.0 % Neutrophils # (Auto) 8.3 1.6-8.6 10 ^3/uL Lymphocytes # (Auto) 1.7 0.4-5.4 10 ^3/uL Monocytes # (Auto) 0.4 0-1.3 10 ^3/uL Eosinophils # (Auto) 0.1 0-0.8 10 ^3/uL Basophils # (Auto) 0.1 0-0.2 10 ^3/uL Nucleated Red Blood Cells 0.1 % Prothrombin Time 10.7 9.3-11.8 sec Prothrombin Time INR 1.01 0.9-1.15 Activated Partial Thromboplast Time 28.9 24.5-34.5 SEC Sodium Level 139 136-145 mmol/L Potassium Level 3.6 3.5-5.1 mmol/L Chloride Level 105 98-107 mmol/L Carbon Dioxide Level 23 20-31 mmol/L Anion Gap 11 5-15 Blood Urea Nitrogen 75 H 9-23 mg/dL Creatinine 5.08 H 0.700-1.30 mg/dL Glomerular Filtration Rate Calc 13 >90 mL/min BUN/Creatinine Ratio 14.8 10.0-20.0 Serum Glucose 102 74-106 mg/dL Calcium Level 9.8 8.7-10.4 mg/dL Total Bilirubin 0.9 0.2-1.0 mg/dL Aspartate Amino Transferase (AST) 18 13-40 U/L Alanine Aminotransferase (ALT) 17 7-40 U/L Alkaline Phosphatase 78 46-116 U/L Total Protein 6.8 5.7-8.2 g/dL Albumin 4.5 3.2-4.8 g/dL PATIENT: MARGARET MARTINEZ ACCT: [id number] UNIT: [id number] : 1970 LOC: ER ROOM / BED: / AGE / SEX: 54 / M ADM STATUS: REG ER SERVICE 183 ORDERING PHYSICIAN: DIANA PETERS MD PROCEDURE(s): CXRP - CHEST PORTABLE REASON: chest pain ORDER NUMBER(s): [id number], ACCESSION NUMBER(s): [id number] CHEST RADIOGRAPH Indication: chest pain Technique: Single frontal view of the chest was obtained Comparison: XY CHEST PORTABLE on DOS: 01/23/23, CHEST PORTABLE on DOS: 03/14/21, CHEST PORTABLE on DOS: 04/18/20 FINDINGS: Lines and Tubes: None Lungs: No focal consolidation. Pleura: No effusion. No pneumothorax. Cardiomediastinal contours: Unremarkable Bones: No acute osseous abnormality. IMPRESSION: 1. No acute cardiopulmonary disease. ORDERING PHYSICIAN: ANTONIO RAMÍREZ MD PROCEDURE(s): HWOCT - HEAD WITHOUT CONTRAST REASON: near syncope ORDER NUMBER(s): [id number], ACCESSION NUMBER(s): [id number] EXAM: CT HEAD WITHOUT CONTRAST INDICATION: near syncope TECHNIQUE: CT of the head without intravenous contrast. Radiation Dose Information: CT Dose: CTDI volume is 67.94 mGy. Dose-length product is 1253.68 mGy*cm The dose indicators for CT are the volume Computed Tomography (CT) Dose Index (CTDIvol) and the Dose Length Product (DLP), and are measured in units of mGy and mGy-cm, respectively. These indicators are not patient dose, but values generated from the CT scanner acquisition factors. The report includes radiation exposure data for exposures received during this examination. COMPARISON: CT HEAD WITHOUT CONTRAST on DOS: 10/27/24, CT HEAD WITHOUT CONTRAST on DOS: 01/23/23 FINDINGS: There is no evidence of acute intracranial hemorrhage, extra-axial collection, mass effect, midline shift, herniation or hydrocephalus. Small lacunar infarct external capsule right basal ganglia.' No acute intracranial hemorrhage. The ventricles, sulci and cisterns are age appropriate. The rossi-white differentiation is intact. Patchy periventricular and subcortical white matter hypoattenuation is nonspecific but may be related to small vessel ischemic disease. The visualized paranasal sinuses and mastoid air cells are clear. The surrounding soft tissues and osseous structures are unremarkable. IMPRESSION: 1. No acute intracranial abnormality. 2. Old lacunar infarct external capsule right basal ganglia. SEPSIS Sepsis Screen Date sepsis recognized/suspect: Feb 21, 2025 Time Sepsis recognized/suspect: 1836 Recent Procedure: No On Antibiotic Therapy: No Respiratory Rate >20: No Heart Rate >90: No Temp<36 C (96.8 F) or >38.3 C: No SBP <90 or MAP <65 mmHG: No New Acute Mental Status Change: No Is the patient on CPAP, BIPAP,: No Physician Orders Troponin-I Hs (02/22/25 00:00) Troponin-I Hs (02/22/25 03:00) Troponin-I Hs (02/22/25 06:00) Chest Portable (02/21/25 18:32) Head Without Contrast (02/21/25 18:57) Aspirin Tablet (02/22/25 10:00) Levothyroxine Tablet (Synthroid Tablet) (02/22/25 06:00) Thyroid Stimulating Hormone (02/21/25 22:21) Clonidine Hcl Tablet (Catapres Tablet) (02/21/25 22:30) *[facility] (02/21/25 22:21) Allergies (02/21/25 22:21) Code Status (02/21/25 22:21) Sodium Chloride Lock (Saline Lock Ns) (02/22/25 06:00) Oxygen Per Hour (02/21/25 22:21) Ondansetron Hcl (Zofran) (02/21/25 22:30) Docusate Sodium Capsule (Colace Capsule) (02/21/25 22:30) Complete Blood Count (02/22/25 04:00) Comprehensive Metabolic Panel (02/22/25 04:00) Cardiac Diet-2gna,Lofat,Lochol (02/22/25 Breakfast) Condition: Serious (02/21/25 22:21) Bedrest With Bathroom Privileg (02/21/25 22:21) Sequential Compression Device (02/21/25 ) Ibuprofen Tablet (Motrin Tablet) (02/21/25 22:30) Clonidine Hcl Tablet (Catapres Tablet) (02/22/25 06:00) Famotidine Injection (Pepcid Injection) (02/22/25 10:00) Vital Signs Date Time Temp Pulse Resp B/P (MAP) Pulse Ox O2 Delivery O2 Flow Rate FiO2 02/21/25 21:43 101 02/21/25 21:30 92 13 134/84 (101) 99 02/21/25 21:17 94 02/21/25 21:15 103 22 125/76 (92) 99 02/21/25 21:00 103 22 157/87 (110) 99 02/21/25 20:40 97.7 103 22 219/139 (165) 99 97.7 02/21/25 20:00 101 234/157 02/21/25 19:45 90 15 207/140 (162) 98 02/21/25 19:40 90 98 Room Air* 0 21 02/21/25 19:27 77 02/21/25 19:27 252/163 02/21/25 18:36 94 02/21/25 18:29 97.7 86 20 239/160 (186) 99 97.7 Laboratory Tests Test 02/21/25 18:43 White Blood Count 10.7 10^3/uL (4.4-10.8) Medications Medications Dose Ordered Sig/Shayan Route Start Time Stop Time Status Last Admin Dose Admin Hydralazine HCl 20 mg ONCE ONCE IV 02/21/25 19:30 02/21/25 19:31 DC 02/21/25 19:27 20 MG Nicardipine HCl 250 ml @ 50 mls/hr Q5H IV 02/21/25 20:15 02/21/25 22:36 DC 02/21/25 20:00 50 MLS/HR Assessment/Plan Assessment/Plan Hypertensive emergency Acute on chronic renal failure Generalized weakness Chest pain, rule out acute myocardial infarction Plan 1. Admit to intensive care unit 2. Breathing treatment 3. Pain control management 4. Management of fluids and electrolytes 5. Consultation for cardiology/nephrology 6. Diagnostic tests head CT 7. DVT prophylaxis-on aspirin 8. Repeat labs CBC, CMP in a.m. 9. Continue with current medical management 10. Treatment plan discussed with patient and RN. Patient verbalized understanding. Plan discussed with: Patient, Other (RN) My Orders Orders - SLADE HILL DNP Procedure Category Date Status Time Aspirin Tablet PHA 02/22/25 In Process 10:00 Levothyroxine Tablet PHA 02/22/25 In Process (Synthroid Tablet) 06:00 Thyroid Stimulating LAB 02/21/25 In Process Hormone 22:21 Clonidine Hcl Tablet PHA 02/21/25 In Process (Catapres Tablet) 22:30 *Dr. Luis Berg CONS 02/21/25 Transmitted -[place] 22:21 Allergies CEDRIC 02/21/25 In Process 22:21 Code Status CODE 02/21/25 Transmitted 22:21 Sodium Chloride Lock PHA 02/22/25 In Process (Saline Lock Ns) 06:00 Oxygen Per Hour RT 02/21/25 Transmitted 22:21 Ondansetron Hcl PHA 02/21/25 In Process (Zofran) 22:30 Docusate Sodium PHA 02/21/25 In Process Capsule (Colace 22:30 Complete Blood Count LAB 02/22/25 Verified 04:00 Comprehensive LAB 02/22/25 Verified Metabolic Panel 04:00 Cardiac DIET 02/22/25 Transmitted Diet-2gna,Lofat,Lochol Breakfast Condition: Serious CEDRIC 02/21/25 In Process 22:21 Bedrest With Bathroom CEDRIC 02/21/25 In Process Privileg 22:21 Sequential CEDRIC 02/21/25 In Process Compression Device Ibuprofen Tablet PHA 02/21/25 In Process (Motrin Tablet) 22:30 Clonidine Hcl Tablet PHA 02/22/25 In Process (Catapres Tablet) 06:00 Famotidine Injection PHA 02/22/25 In Process (Pepcid Injection) 10:00 Problem List: (1) Hypertensive emergency (2) Acute on chronic renal failure (3) Generalized weakness (4) Chest pain, rule out acute myocardial infarction Date of Service: Feb 21, 2025 Billing Provider: SLADE HILL DNP Common Visit Codes: [id number] INP/OBS CARE (HIGH) SLADE HILL DNP Feb 21, 2025 23:11
[2025-02-21] MEDS ORDERED: NITROGLYCERIN 0.4 MG SL TAB SL PRN (23:15)
[2025-02-22] VITALS (17 sets, daily range): BP systolic 126–148; BP diastolic 80–90; PULSE 99–120; RESP 11–17; TEMP 98.4; O2SAT 95–98
[2025-02-22] MEDS: diphenhdrAMINE HCL 50 MG/1 ML VL ONE (01:04)
[2025-02-22] MEDS: diphenhdrAMINE HCL 50 MG/1 ML VL IV PRN (01:05)
[2025-02-22 03:52] LABS: Hematocrit 33.4 % (41.0-53.0); Hemoglobin 12.1 g/dL (13.5-17.5); Mean Corpuscular Hemoglobin 31.1 pg (28.0-32.0); Mean Corpuscular Volume 86.1 fL (80.0-100.0); Nucleated Red Blood Cells % 0.2 %
[2025-02-22 04:14] LABS: Alanine Aminotransferase 13 U/L (7-40); Albumin 4.1 g/dL (3.2-4.8); Alkaline Phosphatase 65 U/L (46-116); Anion Gap 12 (5-15); BUN/Creatinine Ratio 12.6 (10.0-20.0); Bilirubin, Total 1.1 mg/dL (0.2-1.0); Calcium 9.8 mg/dL (8.7-10.4); Carbon Dioxide 21 mmol/L (20-31); Chloride 106 mmol/L (98-107); Sodium 139 mmol/L (136-145); Total Protein 6.4 g/dL (5.7-8.2)
[2025-02-22 04:15] LABS: Blood Urea Nitrogen 65 mg/dL (9-23); Glucose 153 mg/dL (74-106); Potassium 3.2 mmol/L (3.5-5.1)
[2025-02-22] MEDS: SODIUM CHLOR 0.9% PF (SALINE LOCK) 10ML VIAL/SYR IV SCH (05:40)
[2025-02-22] MEDS: LEVOTHYROXINE SODIUM 50 MCG TAB PO SCH (05:49)
[2025-02-22] MEDS: NICARDIPINE HCL IN SODIUM CHLO 200 ML IV SCH (06:01)
--- NOTE | 2025-02-22 07:12 | ECG ---
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
--- NOTE | 2025-02-22 07:12 | ECG ---
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
[2025-02-22 09:07] LABS: Magnesium 2.0 mg/dL (1.6-2.6)
[2025-02-22 09:08] LABS: Cholesterol 177.0 mg/dL (< 200)
[2025-02-22 09:22] LABS: HDL Cholesterol 30.0 mg/dL (40-59); Triglycerides 249.0 mg/dL (< 150)
--- NOTE | 2025-02-22 09:49 | DVHINCON2 ---
Date Seen: Feb 22, 2025 Referring Physician NICHOLAS Gutierrez Reason for Consultation Hypertensive emergency History of Present Illness This is a 54-year-old man who presented to the emergency room with a chief complaint of chest pain for four days prior to arrival. Describes his chest pain as substernal, pressure-like, nonradiating, unprovoked, and associated with a headache and a blood pressure of 265/170 mmHg. At time of assessment he was found with a systolic blood pressure in the 150s mmHg and resolved chest pain. States his blood pressure have been uncontrolled during the past few days. He is currently only on a Clonidine patch at home stating he cannot tolerate oral antihypertensive therapy such as hydralazine, ACEIs, BBs, HCTZ, and CCBs as these medications make him "very sick." Reports nephrology provider Dr. Camacho manages his BP. Follows up with cardiology, Dr. Gamino, as outpatient with next appointment next month. Recommendations given were for an upcoming Holter monitor and referral to [facility] for baroreflex activation therapy (BAT). Of note, the patient underwent a cardiac catheterization and coronary angiogram without catheter based intervention given normal coronaries in 2022. He also underwent a non-ischemic stress test this past year. She has a very on multiple 12 lead electrocardiograms x4 revealing a sinus tachycardia rhythm. Serial troponin levels are trending up with latest in the 2,000s ng/L. Significant medical history includes malignant/resistant hypertension, carotid artery stenosis with stent placement in 2004, TIAs x15, chronic kidney disease, thyroid disease, and PTSD. Past Medical History Past medical history reviewed. No other significant than mentioned above. Past Surgical History Carotid artery stenosis with stent placement in 2004 Appendectomy Family History: Cancer G8 BROTHER FH: brain tumor 19 CHILD FH: breast cancer G8 MOTHER FH: lung cancer G8 FATHER Kidney stones G8 FATHER Seizure disorder (situation) 19 CHILD Family History Family history reviewed. Social History Denies the use of illicit drugs, alcohol, or tobacco use. Allergies: Coded Allergies: Codeine (Verified Allergy, Severe, ANAPHYLAXIS, VOMITING, 02/22/25) Mirtazapine (Verified Allergy, Severe, ANAPHYLAXIS , 02/22/25) Morphine (Verified Allergy, Severe, VOMITING, RASH, 02/22/25) Phenobarbital (Verified Allergy, Severe, ANAPHYLAXIS, 02/22/25) Tramadol (Unverified Allergy, Severe, vomiting, 02/22/25) Acetaminophen (Verified Allergy, Intermediate, RASH, NAUSEOUS, 02/22/25) Hydralazine (Verified Allergy, Intermediate, VOMITING, 02/22/25) Levetiracetam (Verified Allergy, Intermediate, DISORIENTED, LETHARGIC, VOMITING, 02/22/25) Levothyroxine (Verified Allergy, Intermediate, vomiting, 02/22/25) Methyldopa (Verified Allergy, Intermediate, VOMITING, 02/22/25) Phenytoin (Verified Allergy, Intermediate, 05/13/10) BREAKS OUT IN WELTS Prochlorperazine (Verified Allergy, Intermediate, vomiting, 02/22/25) Alprazolam (Verified Adverse Reaction, Intermediate, vomiting, 02/21/25) Amlodipine (Verified Adverse Reaction, Intermediate, vomiting, 02/21/25) Ciprofloxacin (Verified Adverse Reaction, Intermediate, vomiting, 02/21/25) Clonidine (Verified Adverse Reaction, Intermediate, vomiting when taking po , 02/21/25) po makes pt vomit, can tolerate the patch Enalapril (Verified Adverse Reaction, Intermediate, vomiting, 02/21/25) Famotidine (Verified Adverse Reaction, Intermediate, VOMITING, 02/22/25) Finerenone (Verified Adverse Reaction, Intermediate, VOMITING, 02/22/25) Furosemide (Verified Adverse Reaction, Intermediate, VOMITING, 02/22/25) Gabapentin (Verified Adverse Reaction, Intermediate, vomiting, headache, 02/21/25) Hydrochlorothiazide (Verified Adverse Reaction, Intermediate, vomiting, 02/21/25) Hydrocodone (Verified Adverse Reaction, Intermediate, vomiting, headache, 02/21/25) Labetalol (Verified Adverse Reaction, Intermediate, VOMITING, 02/22/25) Losartan (Verified Adverse Reaction, Intermediate, vomiting, 02/21/25) Magnesium Oxide (Verified Adverse Reaction, Intermediate, vomiting, 02/21/25) Methocarbamol (Verified Adverse Reaction, Intermediate, VOMITING, 02/22/25) Metoprolol (Verified Adverse Reaction, Intermediate, vomiting, 02/21/25) Nifedipine (Verified Adverse Reaction, Intermediate, VOMITING, 02/22/25) Nitrofurantoin (Verified Adverse Reaction, Intermediate, VOMITING, 02/22/25) Omeprazole (Verified Adverse Reaction, Intermediate, vomiting, 02/21/25) Ondansetron (Verified Adverse Reaction, Intermediate, VOMITING, 02/22/25) Oxycodone (Verified Adverse Reaction, Intermediate, VOMITING, 02/22/25) Pantoprazole (Verified Adverse Reaction, Intermediate, vomiting, 02/21/25) Potassium Chloride (Verified Adverse Reaction, Intermediate, vomiting, 02/21/25) Rizatriptan (Verified Adverse Reaction, Intermediate, VOMITING, 02/22/25) Sucralfate (Verified Adverse Reaction, Intermediate, vomiting, 02/21/25) Sumatriptan (Verified Adverse Reaction, Intermediate, vomiting, 02/21/25) Tizanidine (Verified Adverse Reaction, Intermediate, VOMITING, LETHARGIC , 02/22/25) Trazodone (Verified Adverse Reaction, Intermediate, severe headache, 02/21/25) Uncoded Allergies: ALL B/P MEDS EXCEPT CLONIDINE (Allergy, Unknown, 02/22/25) ALL PO BP MEDSCAN TAKE CLONIDINE PATCH Home Meds Active Scripts Isosorbide Dinitrate (Isosorbide Dinitrate) 10 Mg Tab, 20 MG PO TID@06,12,18, #90 TAB Prov:HODA JAIN MD 04/22/20 Hydralazine HCl (Hydralazine HCl) 25 Mg Tab, 25 MG PO Q6HR, #120 TAB Prov:HODA JAIN MD 04/22/20 Reported Medications Levothyroxine Sodium (SYNTHROID TABLET) 50 Mcg Tb, 1 TAB PO DAILY, #30 TAB 5 Refills 03/14/21 Omeprazole (Gnp Omeprazole) 20 Mg Tab, 40 MG PO, TAB 03/14/21 Hydroxyzine Hcl (Hydroxyzine Hcl) 25 Mg Tab, 25 MG PO for 30 Days, MG 03/14/21 Potassium Chloride (Klor-Con 8) 8 Meq Tab, 8 MEQ PO, TAB 03/14/21 Furosemide (Furosemide) 40 Mg Tab, 40 MG PO DAILY for 30 Days 03/14/21 Nifedipine (Nifedipine Er) 90 Mg Tab, 1 TAB PO DAILY, #30 TAB 5 Refills 03/14/21 Labetalol Hcl (Labetalol Hcl) 300 Mg Tab, 300 MG PO for 30 Days, MG 03/14/21 Oxycodone W/ Acetaminophen (Percocet 5/325MG) 1 Tab Tb, 1 TAB PO QID, #120 TAB 03/14/21 Aspirin (Aspir-Low) 81 Mg Tab, 81 MG PO DAILY for 30 Days, MG 04/19/20 Home Meds Home medications reviewed. Current Medications Current Medications Medications (Trade) Dose Ordered Sig/Shayan Route PRN Reason Start Time Stop Time Status Last Admin Nicardipine HCl 250 ml @ 50 mls/hr Q5H IV 02/21/25 20:15 02/21/25 22:36 DC 02/21/25 20:00 Nicardipine HCl 250 ml @ 50 mls/hr Q5H IV 02/21/25 22:30 02/21/25 22:36 DC Aspirin 81 mg DAILY PO 02/22/25 10:00 Levothyroxine Sodium (Synthroid Tablet) 50 mcg QAM@0600 PO 02/22/25 06:00 Clonidine HCl (Catapres Tablet) 0.1 mg Q4HP PRN PO SBP>150 02/21/25 22:30 Sodium Chloride (Saline Lock Ns) 10 ml Q8HR IV 02/22/25 06:00 02/22/25 05:40 Ondansetron HCl (Zofran) 4 mg Q4HP PRN IV NAUSEA / VOMITING 02/21/25 22:30 Docusate Sodium (Colace Capsule) 100 mg BIDPRN PRN PO FOR CONSTIPATION 02/21/25 22:30 Ibuprofen (Motrin Tablet) 600 mg Q6HP PRN PO PAIN SCALE 1-3 OR TEMP>100.4 02/21/25 22:30 Clonidine HCl (Catapres Tablet) 0.2 mg TID PO 02/22/25 06:00 02/22/25 08:41 DC Famotidine (Pepcid Injection) 20 mg DAILY IV 02/22/25 10:00 Nitroglycerin (Ntrostat Sublingual) 0.4 mg Q5MINP PRN SL FOR CHEST PAIN 02/21/25 23:15 Nicardipine HCl 250 ml @ 50 mls/hr Q5H IV 02/22/25 00:15 02/22/25 05:47 DC 02/22/25 00:15 Diphenhydramine HCl (Benadryl Injection) 25 mg Q4HP PRN IV FOR ITCHING 02/22/25 01:00 02/22/25 01:05 Nicardipine HCl 250 ml @ 50 mls/hr Q5H IV 02/22/25 02:45 02/22/25 05:45 DC 02/22/25 02:45 Nicardipine/ Sodium Chloride 200 ml @ 50 mls/hr Q4H IV 02/22/25 06:00 02/22/25 06:01 Nifedipine (Procardia Xl (Time-Release)) 90 mg DAILY PO 02/23/25 10:00 UNV Carvedilol (Coreg Tablet) 6.25 mg Q12HR PO 02/22/25 22:00 Review of Systems Constitutional: No symptom reported Ears, Nose, & Throat: No symptom reported Eyes: No symptom reported Neurological: No symptoms reported Pulmonary/Respiratory: No symptom reported Cardiovascular: Chest pain Gastrointestinal: No symptom reported Genitourinary: No symptom reported Musculoskeletal: No symptom reported Skin: No symptom reported Psychiatric: No symptom reported Endocrine: No symptom reported Hemotologic/Lymphatic: No symptom reported Vital Signs Vital Signs Date Time Temp Pulse Resp B/P (MAP) Pulse Ox O2 Delivery O2 Flow Rate FiO2 02/22/25 08:00 98.6 108 12 134/90 (105) 97 98.6 02/22/25 07:53 Room Air* 0 21 Physical Exam General Appearance: Cooperative. Well developed. Well nourished. In no acute distress Head Exam: Normal inspection Neck Exam: Normal inspection. Non-tender. Normal alignment Pulmonary/Respiratory: Chest non-tender. Clear bilateral breath sounds Cardiovascular/Chest: Regular rate and rhythm. S1, S2. Sinus tachycardia. No murmurs. No JVD. Peripheral Pulses: 2+ Radial (R). 2+ Radial (L). 2+ Pedal (R). 2+ Pedal (L) Abdominal Exam: Normal bowel sounds. Soft. Nontender. No hepatospenomegaly. No masses Ankle Exam: Negative ankle edema Lower extremities: Negative lower extremity edema Neuro/Mental Status: A&O x4. Coherent Thoughts/Psych: Normal thought pattern. Flat affect Appearance: In no acute distress Skin Exam: Normal inspection. Normal color. Warm. Dry Labs/Diagnostic Data Labs Test 02/22/25 08:55 02/22/25 02:53 02/21/25 19:48 02/21/25 18:43 Range/Units White Blood Count 14.3 #H 4.4-10.8 10^3/uL Red Blood Count 3.88 L 4.5-5.90 10^6/uL Hemoglobin 12.1 L 13.5-17.5 g/dL Hematocrit 33.4 L 41.0-53.0 % Mean Corpuscular Volume 86.1 80.0-100.0 fL Mean Corpuscular Hemoglobin 31.1 28.0-32.0 pg Mean Corpuscular Hemoglobin Concent 36.1 H 32.0-36.0 g/dL Red Cell Distribution Width 13.2 11.8-14.3 % Platelet Count 141 140-450 10^3/uL Mean Platelet Volume 7.7 6.9-10.8 fL Neutrophils (%) (Auto) 93.8 H 37.0-80.0 % Lymphocytes (%) (Auto) 4.4 L 10.0-50.0 % Monocytes (%) (Auto) 1.4 0.0-12.0 % Eosinophils (%) (Auto) 0.1 0.0-7.0 % Basophils (%) (Auto) 0.3 0.0-2.0 % Neutrophils # (Auto) 13.5 H 1.6-8.6 10 ^3/uL Lymphocytes # (Auto) 0.6 0.4-5.4 10 ^3/uL Monocytes # (Auto) 0.2 0-1.3 10 ^3/uL Eosinophils # (Auto) 0 0-0.8 10 ^3/uL Basophils # (Auto) 0 0-0.2 10 ^3/uL Nucleated Red Blood Cells 0.2 % Sodium Level 139 136-145 mmol/L Potassium Level 3.2 L 3.5-5.1 mmol/L Chloride Level 106 98-107 mmol/L Carbon Dioxide Level 21 20-31 mmol/L Anion Gap 12 5-15 Blood Urea Nitrogen 65 #H 9-23 mg/dL Creatinine 5.15 H 0.700-1.30 mg/dL Glomerular Filtration Rate Calc 13 >90 mL/min BUN/Creatinine Ratio 12.6 10.0-20.0 Serum Glucose 153 H 74-106 mg/dL Calcium Level 9.8 8.7-10.4 mg/dL Total Bilirubin 1.1 H 0.2-1.0 mg/dL Aspartate Amino Transferase (AST) 19 13-40 U/L Alanine Aminotransferase (ALT) 13 7-40 U/L Alkaline Phosphatase 65 46-116 U/L Total Protein 6.4 5.7-8.2 g/dL Albumin 4.1 3.2-4.8 g/dL Thyroid Stimulating Hormone (TSH) 4.89 H 0.55-4.78 uIU/mL Prothrombin Time 10.7 9.3-11.8 sec Prothrombin Time INR 1.01 0.9-1.15 Activated Partial Thromboplast Time 28.9 24.5-34.5 SEC Assessment Chest pain in the setting of hypertensive crisis NSTEMI, likely type 2 secondary to above History of carotid artery stenosis with stent placement Triglyceridemia, newly diagnosed CHANDRA on CKD Thyroid disease HX of multiple TIAs Plan/Recommendation We will continue the following plan/recommendations (Dr. Olson): * Transthoracic echocardiogram to evaluate cardiac function * Continue nicardipine drip and clonidine patch for blood pressure control * Add Prazosin (not listed on allergy list) * Plasma metanephrines, renin/aldosterone ratio, cortisol am/pm * Obtain a renal artery ultrasound rule out stenosis * Continue serial troponin levels * Initiate magnesium IV * Nephrology consultation The patient presented with chest pain in the setting of hypertensive crisis. He underwent a cardiac catheterization without catheter based intervention given normal coronaries in 2022. He also underwent a nonischemic Cardiolite stress test last year with Dr. Gamino. Continue referral to [facility] for baroreflex activation therapy as outpatient. Continue blood pressure management control as tolerated given the patient has many allergies/adverse effects to multiple antihypertensives. Thank you for allowing us to participate in this patient's care. Please call if you have any questions or concerns. Critical care time: 45 min. This medical document was created using an electronic medical record system with voice recognition software and computerized dictation system. Although this document has been carefully reviewed, there might still be some phonetic and typographical errors. Occasional wrong-word or ``sound-alike substitutions may have occurred due to the inherent limitations of voice recognition software. These areas are purely typographical due to imperfections of the software programs and do not reflect any compromise in the patient's medical care. Please read the chart carefully and recognize, using context, where these substitutions have occurred. Plan discussed with: Patient NYHA Physical activity limitations: NA Date of Service: Feb 22, 2025 Billing Provider: WAQAR JAMES Cardiology Common Codes: 19115-[id number] CARE 30-74 MIN WAQAR JAMES Feb 22, 2025 09:49
[2025-02-22] MEDS: FAMOTIDINE (10MG/ML) 2ML VL IV SCH (09:58)
[2025-02-22] MEDS: CARVEDILOL 3.125 MG TAB PO ONE (09:59)
[2025-02-22] MEDS: MAGNESIUM SULFATE 1GM/100ML 100 ML IV ONE (10:29)
[2025-02-22] MEDS: PRAZOSIN HCL 1 MG CAP PO SCH (14:00)
--- NOTE | 2025-02-22 15:47 | DVHSR ---
APPROVED REPORT EXAM: Two-dimensional and M-mode echocardiogram with Doppler and color Doppler. Blood Pressure: 134/90 mmHg INDICATION NSTEMI RISK FACTORS Height: 71, Weight: 172 DIMENSIONS LVDd4.4 (3.8-5.7cm)LA (2D)4.0 (1.9-4.0cm)Aortic Root4.0 (2.0-3.7cm) LVDs2.8 (2.5-4.0cm)LA (MM) (1.9-4.0cm)Aortic Cusp Exc2.1 (1.5-2.0cm) EF (%) 65.0 (55-70%)Rt. Atrium3.6 (1.9-4.0cm)Asc. Aorta cm IVSd1.7 (0.7-1.1cm)RV (D) (1.8-2.4cm) PWd1.7 (0.7-1.1cm) Mitral Valve MitralMitral Stenosis E wave0.98m/sMV Mean GR.mmHg A wave1.14m/sMV Peak GR.110mmHg E/A ratio0.92D MVAcm2 DECEL [id number] 1/2 Ehgl04sn IVRTmsDop MVA6.41cm2 Aortic Valve Aortic ValveAortic Stenosis V11.41m/Beverly Mean GR.10mmHg V22.23m/Beverly Peak GR.20mmHg LVOT Diameter2.2 (1.8-2.4cm)Doppler AVA2.40cm2 Pulmonic Valve V21.66m/s Conclusion MODERATE DEGREE LVH AND MODERATE DEGREE LV DIASTOLIC DYSFUNCTION LV EF IS 65% AND IS NORMAL NORMAL VALVES NORMAL RV FUNCTION AND SIZE NO EFFUSION
--- NOTE | 2025-02-22 16:31 | DVHPN2 ---
Subjective The patient is seen and examined at bedside. No headache, no chest pain. Remained on nicardipine drip. Blood pressure is better controlled now Reviewed: Care Plan, H&P, Labs, Medications, Previous Orders, Radiology Changes from previous H/P or p: No Changes Eyes: No Pain, No Vision change, No Conjunctivae inflammation, No Eyelid inflammation, No Other, No Redness ENT: No Ear pain, No Ear discharge, No Nose pain, No Nose discharge, No Nose congestion, No Mouth pain, No Mouth swelling, No Throat pain, No Throat swelling, No Other Cardiovascular: Chest Pain; No Palpitations, No Orthopnea, No Paroxysmal Noc. Dyspnea, No Edema, No Lt Headedness; Other (Hypertension) Respiratory: No Cough, No Dry, No Shortness of breath, No SOB with excertion, No Wheezing, No Hemoptysis, No Pleuritic Pain, No Sputum, No Other Gastrointestinal: No Nausea, No Vomiting, No Abdominal Pain, No Diarrhea, No Constipation, No Melena, No Hematochezia, No Other Genitourinary: No Dysuria, No Frequency, No Incontinence, No Hematuria, No Retention, No Other Musculoskeletal: No other; neck pain; No shoulder pain, No arm pain, No back pain, No hand pain, No leg pain, No foot pain Skin: No Rash, No Lesions, No Jaundice, No Bruising, No Other Objective Vitals Vital Signs Date Time Temp Pulse Resp B/P (MAP) Pulse Ox O2 Delivery O2 Flow Rate FiO2 02/22/25 15:00 104 16 132/86 (101) 94 02/22/25 08:00 98.6 98.6 02/22/25 07:53 Room Air* 0 21 Intake/Output Intake and Output 02/22/25 07:00 Output Total 500 ml Balance -500 ml Output Urine Total 500 ml General Appearance: Alert, Oriented X3, Cooperative, No acute distress HEENT: Atraumatic, PERRLA, EOMI, Mucous membr. moist/pink Neck: Supple Lungs: Clear to auscultation, Normal air movement Cardiovascular: Regular rate, Normal S1, Normal S2, No murmurs, Gallops, Rubs Abdomen: Normal bowel sounds, Soft, No tenderness Extremities: Normal pulses Neuro: Cranial nerves 3-12 NL Psych/Mental Status: Mental status NL Medications Current Medications Medications Dose Ordered Sig/Shayan Route Start Time Stop Time Status Last Admin Dose Admin Aspirin 81 mg DAILY PO 02/22/25 10:00 02/22/25 09:58 81 MG Levothyroxine Sodium 50 mcg QAM@0600 PO 02/22/25 06:00 Clonidine HCl 0.1 mg Q4HP PRN PO 02/21/25 22:30 Sodium Chloride 10 ml Q8HR IV 02/22/25 06:00 02/22/25 14:03 10 ML Ondansetron HCl 4 mg Q4HP PRN IV 02/21/25 22:30 Docusate Sodium 100 mg BIDPRN PRN PO 02/21/25 22:30 Ibuprofen 600 mg Q6HP PRN PO 02/21/25 22:30 Famotidine 20 mg DAILY IV 02/22/25 10:00 02/22/25 09:58 20 MG Nitroglycerin 0.4 mg Q5MINP PRN SL 02/21/25 23:15 Diphenhydramine HCl 25 mg Q4HP PRN IV 02/22/25 01:00 02/22/25 01:05 25 MG Nicardipine/ Sodium Chloride 200 ml @ 50 mls/hr Q4H IV 02/22/25 06:00 02/22/25 06:01 50 MLS/HR Prazosin HCl 2 mg Q8HR PO 02/22/25 14:00 Atorvastatin Calcium 20 mg HS PO 02/22/25 22:00 Laboratory Results Laboratory Tests 02/22/25 02:53 Chemistry Test 02/21/25 18:43 02/22/25 02:53 Albumin 4.5 g/dL (3.2-4.8) 4.1 g/dL (3.2-4.8) Calcium Level 9.8 mg/dL (8.7-10.4) 9.8 mg/dL (8.7-10.4) Total Protein 6.8 g/dL (5.7-8.2) 6.4 g/dL (5.7-8.2) Magnesium Level 2.0 mg/dL (1.6-2.6) Coagulation Test 02/21/25 18:43 Prothrombin Time 10.7 sec (9.3-11.8) Prothrombin Time INR 1.01 (0.9-1.15) Activated Partial Thromboplast Time 28.9 SEC (24.5-34.5) Lipid panel Test 02/22/25 02:53 Cholesterol Level 177 mg/dL (< 200) HDL Cholesterol 30 mg/dL (40-59) L Triglycerides Level 249 mg/dL (< 150) H LFT Test 02/21/25 18:43 02/22/25 02:53 Alanine Aminotransferase (ALT) 17 U/L (7-40) 13 U/L (7-40) Alkaline Phosphatase 78 U/L (46-116) 65 U/L (46-116) Aspartate Amino Transferase (AST) 18 U/L (13-40) 19 U/L (13-40) Total Bilirubin 0.9 mg/dL (0.2-1.0) 1.1 mg/dL (0.2-1.0) H HgA1c, TSH Test 02/21/25 19:48 02/22/25 02:53 Thyroid Stimulating Hormone (TSH) 4.89 uIU/mL (0.55-4.78) H Hemoglobin A1c 4.3 % A1C (<5.7) Labs and/or images reviewed: Labs reviewed by me Assessment/Plan Assessment/Plan Hypertensive emergency Acute on chronic renal failure Generalized weakness Chest pain, rule out acute myocardial infarction Continuing current management. Continuing with nicardipine drip. We will continuing to wean the patient down Appreciate box person's input Continuing morphine p.r.n. for pain. We will monitor kidney function This medical document was created using an electronic medical record system with [employer] direct computerized dictation system. Although this document has been carefully reviewed, there may still be some phonetic and typographical errors. These areas are purely typographical due to imperfections of the software programs, and do not reflect any compromise in the patient's medical care. Plan discussed with: Patient, Spouse Date of Service: Feb 22, 2025 Billing Provider: HERBERT MULLINS MD Common Visit Codes: [id number] INP/OBS CARE(HIGH) HERBERT MULLINS MD Feb 22, 2025 16:31
[2025-02-22] MEDS: IBUPROFEN 600 MG TAB PO PRN (16:42)
[2025-02-22] MEDS: ATORVASTATIN 20 MG TAB PO SCH (22:00)
[2025-02-22] MEDS ORDERED: CARVEDILOL 3.125 MG TAB PO SCH (22:00)
--- NOTE | 2025-02-22 23:09 | DVHINCON2 ---
Date Seen: Feb 22, 2025 Referring Physician NICHOLAS Gutierrez Reason for Consultation Hypertensive emergency History of Present Illness This is a 54-year-old male with a past medical history of malignant/resistant hypertension, carotid artery stenosis with stent placement in 2004, TIAs x15, chronic kidney disease, thyroid disease, and PTSD who presented to the ED with complaints of chest pain x 4 days prior to arrival. Patient describes his chest pain as substernal, pressure-like, nonradiating, unprovoked, and associated with a headache and an elevated blood pressure reading of 265/170 mmHg. At time of assessment he was found with a systolic blood pressure in the 150s mmHg and res olved chest pain. Patient states his blood pressure have been uncontrolled during the past few days. Patient is currently only on a Clonidine patch at home stating he cannot tolerate oral antihypertensive therapy such as hydralazine, ACEIs, BBs, HCTZ, and CCBs as these medications make him feel "very sick." Patient reports he follows up with his nephrology provider Dr. Camacho who manages his BP. Patient also follows up with cardiology, Dr. Gamino, as an outpatient with his next appointment being next month. Recommendations given were for an upcoming Holter monitor and referral to [facility] for baroreflex activation therapy (BAT). Of note, the patient underwent a cardiac catheterization and coronary angiogram without catheter based intervention given normal coronaries in 2022. He also underwent a non-ischemic stress test this past year. He has a very on multiple 12 lead electrocardiograms x4 revealing a sinus tachycardia rhythm. Serial troponin levels are trending up with latest in the 2,000s ng/L. Chest x-ray showed NAD. Patient was admitted to the hospital. I am asked to consult on this patient. Past Medical History Past medical history reviewed. No other significant than mentioned above. Past Surgical History Carotid artery stenosis with stent placement in 2004 Appendectomy Family History: Cancer G8 BROTHER FH: brain tumor 19 CHILD FH: breast cancer G8 MOTHER FH: lung cancer G8 FATHER Kidney stones G8 FATHER Seizure disorder (situation) 19 CHILD Allergies: Coded Allergies: Codeine (Verified Allergy, Severe, ANAPHYLAXIS, VOMITING, 02/22/25) Mirtazapine (Verified Allergy, Severe, ANAPHYLAXIS , 02/22/25) Morphine (Verified Allergy, Severe, VOMITING, RASH, 02/22/25) Phenobarbital (Verified Allergy, Severe, ANAPHYLAXIS, 02/22/25) Tramadol (Unverified Allergy, Severe, vomiting, 02/22/25) Acetaminophen (Verified Allergy, Intermediate, RASH, NAUSEOUS, 02/22/25) Hydralazine (Verified Allergy, Intermediate, VOMITING, 02/22/25) Levetiracetam (Verified Allergy, Intermediate, DISORIENTED, LETHARGIC, VOMITING, 02/22/25) Levothyroxine (Verified Allergy, Intermediate, vomiting, 02/22/25) Methyldopa (Verified Allergy, Intermediate, VOMITING, 02/22/25) Phenytoin (Verified Allergy, Intermediate, 05/13/10) BREAKS OUT IN WELTS Prochlorperazine (Verified Allergy, Intermediate, vomiting, 02/22/25) Alprazolam (Verified Adverse Reaction, Intermediate, vomiting, 02/21/25) Amlodipine (Verified Adverse Reaction, Intermediate, vomiting, 02/21/25) Ciprofloxacin (Verified Adverse Reaction, Intermediate, vomiting, 02/21/25) Clonidine (Verified Adverse Reaction, Intermediate, vomiting when taking po , 02/21/25) po makes pt vomit, can tolerate the patch Enalapril (Verified Adverse Reaction, Intermediate, vomiting, 02/21/25) Famotidine (Verified Adverse Reaction, Intermediate, VOMITING, 02/22/25) Finerenone (Verified Adverse Reaction, Intermediate, VOMITING, 02/22/25) Furosemide (Verified Adverse Reaction, Intermediate, VOMITING, 02/22/25) Gabapentin (Verified Adverse Reaction, Intermediate, vomiting, headache, 02/21/25) Hydrochlorothiazide (Verified Adverse Reaction, Intermediate, vomiting, 02/21/25) Hydrocodone (Verified Adverse Reaction, Intermediate, vomiting, headache, 02/21/25) Labetalol (Verified Adverse Reaction, Intermediate, VOMITING, 02/22/25) Losartan (Verified Adverse Reaction, Intermediate, vomiting, 02/21/25) Magnesium Oxide (Verified Adverse Reaction, Intermediate, vomiting, 02/21/25) Methocarbamol (Verified Adverse Reaction, Intermediate, VOMITING, 02/22/25) Metoprolol (Verified Adverse Reaction, Intermediate, vomiting, 02/21/25) Nifedipine (Verified Adverse Reaction, Intermediate, VOMITING, 02/22/25) Nitrofurantoin (Verified Adverse Reaction, Intermediate, VOMITING, 02/22/25) Omeprazole (Verified Adverse Reaction, Intermediate, vomiting, 02/21/25) Ondansetron (Verified Adverse Reaction, Intermediate, VOMITING, 02/22/25) Oxycodone (Verified Adverse Reaction, Intermediate, VOMITING, 02/22/25) Pantoprazole (Verified Adverse Reaction, Intermediate, vomiting, 02/21/25) Potassium Chloride (Verified Adverse Reaction, Intermediate, vomiting, 02/21/25) Rizatriptan (Verified Adverse Reaction, Intermediate, VOMITING, 02/22/25) Sucralfate (Verified Adverse Reaction, Intermediate, vomiting, 02/21/25) Sumatriptan (Verified Adverse Reaction, Intermediate, vomiting, 02/21/25) Tizanidine (Verified Adverse Reaction, Intermediate, VOMITING, LETHARGIC , 02/22/25) Trazodone (Verified Adverse Reaction, Intermediate, severe headache, 02/21/25) Uncoded Allergies: ALL B/P MEDS EXCEPT CLONIDINE (Allergy, Unknown, 02/22/25) ALL PO BP MEDSCAN TAKE CLONIDINE PATCH Home Meds Active Scripts Isosorbide Dinitrate (Isosorbide Dinitrate) 10 Mg Tab, 20 MG PO TID@06,12,18, #90 TAB Prov:HODA JAIN MD 04/22/20 Hydralazine HCl (Hydralazine HCl) 25 Mg Tab, 25 MG PO Q6HR, #120 TAB Prov:HODA JAIN MD 04/22/20 Reported Medications Levothyroxine Sodium (SYNTHROID TABLET) 50 Mcg Tb, 1 TAB PO DAILY, #30 TAB 5 Refills 03/14/21 Omeprazole (Gnp Omeprazole) 20 Mg Tab, 40 MG PO, TAB 03/14/21 Hydroxyzine Hcl (Hydroxyzine Hcl) 25 Mg Tab, 25 MG PO for 30 Days, MG 03/14/21 Potassium Chloride (Klor-Con 8) 8 Meq Tab, 8 MEQ PO, TAB 03/14/21 Furosemide (Furosemide) 40 Mg Tab, 40 MG PO DAILY for 30 Days 03/14/21 Nifedipine (Nifedipine Er) 90 Mg Tab, 1 TAB PO DAILY, #30 TAB 5 Refills 03/14/21 Labetalol Hcl (Labetalol Hcl) 300 Mg Tab, 300 MG PO for 30 Days, MG 03/14/21 Oxycodone W/ Acetaminophen (Percocet 5/325MG) 1 Tab Tb, 1 TAB PO QID, #120 TAB 03/14/21 Aspirin (Aspir-Low) 81 Mg Tab, 81 MG PO DAILY for 30 Days, MG 04/19/20 Current Medications Current Medications Medications (Trade) Dose Ordered Sig/Shayan Route PRN Reason Start Time Stop Time Status Last Admin Nicardipine HCl 250 ml @ 50 mls/hr Q5H IV 02/21/25 20:15 02/21/25 22:36 DC 02/21/25 20:00 Nicardipine HCl 250 ml @ 50 mls/hr Q5H IV 02/21/25 22:30 02/21/25 22:36 DC Aspirin 81 mg DAILY PO 02/22/25 10:00 02/22/25 09:58 Levothyroxine Sodium (Synthroid Tablet) 50 mcg QAM@0600 PO 02/22/25 06:00 Clonidine HCl (Catapres Tablet) 0.1 mg Q4HP PRN PO SBP>150 02/21/25 22:30 Sodium Chloride (Saline Lock Ns) 10 ml Q8HR IV 02/22/25 06:00 02/22/25 05:40 Ondansetron HCl (Zofran) 4 mg Q4HP PRN IV NAUSEA / VOMITING 02/21/25 22:30 Docusate Sodium (Colace Capsule) 100 mg BIDPRN PRN PO FOR CONSTIPATION 02/21/25 22:30 Ibuprofen (Motrin Tablet) 600 mg Q6HP PRN PO PAIN SCALE 1-3 OR TEMP>100.4 02/21/25 22:30 Clonidine HCl (Catapres Tablet) 0.2 mg TID PO 02/22/25 06:00 02/22/25 08:41 DC Famotidine (Pepcid Injection) 20 mg DAILY IV 02/22/25 10:00 02/22/25 09:58 Nitroglycerin (Ntrostat Sublingual) 0.4 mg Q5MINP PRN SL FOR CHEST PAIN 02/21/25 23:15 Nicardipine HCl 250 ml @ 50 mls/hr Q5H IV 02/22/25 00:15 02/22/25 05:47 DC 02/22/25 00:15 Diphenhydramine HCl (Benadryl Injection) 25 mg Q4HP PRN IV FOR ITCHING 02/22/25 01:00 02/22/25 01:05 Nicardipine HCl 250 ml @ 50 mls/hr Q5H IV 02/22/25 02:45 02/22/25 05:45 DC 02/22/25 02:45 Nicardipine/ Sodium Chloride 200 ml @ 50 mls/hr Q4H IV 02/22/25 06:00 02/22/25 06:01 Nifedipine (Procardia Xl (Time-Release)) 90 mg DAILY PO 02/23/25 10:00 02/22/25 09:39 DC Carvedilol (Coreg Tablet) 6.25 mg Q12HR PO 02/22/25 22:00 02/22/25 09:39 DC Prazosin HCl (Minipres Capsule) 2 mg Q8HR PO 02/22/25 14:00 Atorvastatin Calcium (Lipitor) 20 mg HS PO 02/22/25 22:00 Review of Systems Constitutional: No symptom reported Ears, Nose, & Throat: No symptom reported Eyes: No symptom reported Neurological: No symptoms reported Pulmonary/Respiratory: No symptom reported Cardiovascular: Chest pain Gastrointestinal: No symptom reported Genitourinary: No symptom reported Musculoskeletal: No symptom reported Skin: No symptom reported Psychiatric: No symptom reported Endocrine: No symptom reported Hemotologic/Lymphatic: No symptom reported Vital Signs Vital Signs Date Time Temp Pulse Resp B/P (MAP) Pulse Ox O2 Delivery O2 Flow Rate FiO2 02/22/25 12:00 112 02/22/25 12:00 11 131/85 (100) 94 02/22/25 08:00 98.6 98.6 02/22/25 07:53 Room Air* 0 21 Physical Exam GENERAL: Alert and oriented x 3. No acute distress. EYES: PERRL, EOMI. Anicteric. HENT: Moist mucous membranes. LUNGS: Clear to auscultation bilaterally. CARDIOVASCULAR: Regular rate and rhythm. ABDOMEN: Soft, nontender and nondistended. EXTREMITIES: No edema. NEUROLOGIC: No focal neurological deficits. SKIN: Warm, dry. Labs/Diagnostic Data Labs Test 02/22/25 12:00 02/22/25 10:12 02/22/25 02:53 02/21/25 19:48 Range/Units Troponin I High Sensitivity 4495 *H </=54 ng/L White Blood Count 14.3 #H 4.4-10.8 10^3/uL Red Blood Count 3.88 L 4.5-5.90 10^6/uL Hemoglobin 12.1 L 13.5-17.5 g/dL Hematocrit 33.4 L 41.0-53.0 % Mean Corpuscular Volume 86.1 80.0-100.0 fL Mean Corpuscular Hemoglobin 31.1 28.0-32.0 pg Mean Corpuscular Hemoglobin Concent 36.1 H 32.0-36.0 g/dL Red Cell Distribution Width 13.2 11.8-14.3 % Platelet Count 141 140-450 10^3/uL Mean Platelet Volume 7.7 6.9-10.8 fL Neutrophils (%) (Auto) 93.8 H 37.0-80.0 % Lymphocytes (%) (Auto) 4.4 L 10.0-50.0 % Monocytes (%) (Auto) 1.4 0.0-12.0 % Eosinophils (%) (Auto) 0.1 0.0-7.0 % Basophils (%) (Auto) 0.3 0.0-2.0 % Neutrophils # (Auto) 13.5 H 1.6-8.6 10 ^3/uL Lymphocytes # (Auto) 0.6 0.4-5.4 10 ^3/uL Monocytes # (Auto) 0.2 0-1.3 10 ^3/uL Eosinophils # (Auto) 0 0-0.8 10 ^3/uL Basophils # (Auto) 0 0-0.2 10 ^3/uL Nucleated Red Blood Cells 0.2 % Sodium Level 139 136-145 mmol/L Potassium Level 3.2 L 3.5-5.1 mmol/L Chloride Level 106 98-107 mmol/L Carbon Dioxide Level 21 20-31 mmol/L Anion Gap 12 5-15 Blood Urea Nitrogen 65 #H 9-23 mg/dL Creatinine 5.15 H 0.700-1.30 mg/dL Glomerular Filtration Rate Calc 13 >90 mL/min BUN/Creatinine Ratio 12.6 10.0-20.0 Serum Glucose 153 H 74-106 mg/dL Hemoglobin A1c 4.3 <5.7 % A1C Calcium Level 9.8 8.7-10.4 mg/dL Magnesium Level 2.0 1.6-2.6 mg/dL Total Bilirubin 1.1 H 0.2-1.0 mg/dL Aspartate Amino Transferase (AST) 19 13-40 U/L Alanine Aminotransferase (ALT) 13 7-40 U/L Alkaline Phosphatase 65 46-116 U/L Total Protein 6.4 5.7-8.2 g/dL Albumin 4.1 3.2-4.8 g/dL Triglycerides Level 249 H < 150 mg/dL Cholesterol Level 177 < 200 mg/dL LDL Cholesterol 96 < 100 mg/dL HDL Cholesterol 30 L 40-59 mg/dL Thyroid Stimulating Hormone (TSH) 4.89 H 0.55-4.78 uIU/mL Test 02/21/25 18:43 Range/Units Prothrombin Time 10.7 9.3-11.8 sec Prothrombin Time INR 1.01 0.9-1.15 Activated Partial Thromboplast Time 28.9 24.5-34.5 SEC Assessment Chest pain in the setting of hypertensive crisis. NSTEMI, likely type 2 secondary to above. History of carotid artery stenosis with stent placement. Triglyceridemia, newly diagnosed. CHANDRA on CKD. Thyroid disease. History of multiple TIAs. Plan/Recommendation I agree with your ongoing assessment and care of plan. Patient has been seen by Lynn Delgado NP on my behalf, her and I discussed the plan with the patient. The patient presented with chest pain in the setting of hypertensive crisis. He underwent a cardiac catheterization without catheter based intervention given normal coronaries in 2022. He also underwent a nonischemic Cardiolite stress test last year with Dr. Gamino. Continue referral to [facility] for baroreflex activation therapy as outpatient. Continue blood pressure management control as tolerated given the patient has many allergies/adverse effects to multiple antihypertensives. Transthoracic echocardiogram to evaluate cardiac function. Continue nicardipine drip and clonidine patch for blood pressure control. Add Prazosin (not listed on allergy list). Plasma metanephrines, renin/aldosterone ratio, cortisol am/pm. Obtain a renal artery ultrasound rule out stenosis. Continue serial troponin levels. Initiate magnesium IV. Nephrology consultation. Additional plan as per the hospital course. Plan discussed with: Patient NYHA Physical activity limitations: NA Date of Service: Feb 22, 2025 Billing Provider: KIERRA MARTÍNEZ MD Cardiology Common Codes: [id number] INP/OBS CARE (High), [id number] CARE 30-74 MIN KIERRA MARTÍNEZ MD Feb 22, 2025 13:43
--- NOTE | 2025-02-22 23:28 | DVH ---
RENAL DUPLEX ULTRASOUND REASON FOR EXAM: Hypertensive crisis rule out stenosis COMPARISON: RENAL ARTERY LMTD on DOS: 04/19/20 TECHNIQUE: Grayscale imaging of both kidneys is performed. This was followed by duplex scanning of arterial inflow and venous outflow of both kidneys. FINDINGS: RIGHT: The kidney is profoundly echogenic and measures 8.7 cm. No mass lesion or hydronephrosis is se en. The main renal artery peak systolic velocity is normal and measures 51 cm/s. The renal artery/ao rta ratio is not elevated. Arcuate artery restive indices (RI) measure 0.7, 0.7 and 0.6 in the superi or, mid and inferior aspects, respectively. The renal vein is patent. LEFT: The kidney is profoundly echogenic and measures 9.3 cm. No mass lesion or hydronephrosis is see n. There is a 2.0 x 2.0 x 2.1 cm anechoic, simple cyst at the superior pole. The main renal artery p eak systolic velocity is normal and measures 58 cm/s. The renal artery/aorta ratio is not elevated. A rcuate artery restive indices (RI) measure 0.8, 0.7 and 0.7 in the superior, mid and inferior aspects , respectively. The renal vein is not seen. Aorta: Not aneurysmal. PSV: 100 cm/sec. The urinary bladder is not seen. IMPRESSION: No evidence of renal artery stenosis. Echogenic kidneys bilaterally, consistent with medical renal disease.
[2025-02-23] VITALS (92 sets, daily range): BP systolic 120–155; BP diastolic 69–99; PULSE 81–125; RESP 10–29; TEMP 98.4–99; O2SAT 91–98
[2025-02-23 05:11] LABS: Hematocrit 30.7 % (41.0-53.0); Hemoglobin 11.3 g/dL (13.5-17.5); Mean Corpuscular Hemoglobin 31.1 pg (28.0-32.0); Mean Corpuscular Volume 84.5 fL (80.0-100.0); Nucleated Red Blood Cells % 0.0 %
[2025-02-23 05:17] LABS: Alanine Aminotransferase 13 U/L (7-40); Albumin 3.8 g/dL (3.2-4.8); Alkaline Phosphatase 56 U/L (46-116); Anion Gap 12 (5-15); Calcium 8.7 mg/dL (8.7-10.4); Carbon Dioxide 23 mmol/L (20-31); Glucose 99 mg/dL (74-106); Potassium 3.5 mmol/L (3.5-5.1); Sodium 142 mmol/L (136-145); Total Protein 5.8 g/dL (5.7-8.2)
[2025-02-23 05:18] LABS: BUN/Creatinine Ratio 12.1 (10.0-20.0); Bilirubin, Total 1.0 mg/dL (0.2-1.0)
[2025-02-23 05:21] LABS: Blood Urea Nitrogen 67 mg/dL (9-23); Chloride 107 mmol/L (98-107)
--- NOTE | 2025-02-23 12:15 | DVHPN2 ---
[facility] 02/23/25 1215: Consult Progress Note Date Seen: Feb 23, 2025 Subjective Review of Systems: CVS:Normal, RESPIRATORY:Normal, NEURO:Normal Objective vital signs Vital Sign Date Time Temp Pulse Resp B/P (MAP) Pulse Ox O2 Delivery O2 Flow Rate FiO2 02/23/25 11:56 135/87 02/23/25 11:30 110 17 95 02/23/25 08:15 98.4 98.4 02/23/25 06:00 Room Air* 0 21 Total Intake and Output 02/22/25 02/22/25 02/23/25 15:00 23:00 07:00 Intake Total 30.0 ml 650 ml Output Total 300 ml 0 ml Balance -300 ml 30.0 ml 650 ml medications Current Medications Medications Dose Ordered Sig/Shayan Route Start Time Stop Time Status Last Admin Dose Admin Aspirin 81 mg DAILY PO 02/22/25 10:00 02/23/25 11:33 81 MG Levothyroxine Sodium 50 mcg QAM@0600 PO 02/22/25 06:00 Clonidine HCl 0.1 mg Q4HP PRN PO 02/21/25 22:30 Sodium Chloride 10 ml Q8HR IV 02/22/25 06:00 02/23/25 06:08 10 ML Ondansetron HCl 4 mg Q4HP PRN IV 02/21/25 22:30 Docusate Sodium 100 mg BIDPRN PRN PO 02/21/25 22:30 Ibuprofen 600 mg Q6HP PRN PO 02/21/25 22:30 02/23/25 00:23 600 MG Famotidine 20 mg DAILY IV 02/22/25 10:00 02/22/25 09:58 20 MG Nitroglycerin 0.4 mg Q5MINP PRN SL 02/21/25 23:15 Diphenhydramine HCl 25 mg Q4HP PRN IV 02/22/25 01:00 02/22/25 22:23 25 MG Nicardipine/ Sodium Chloride 200 ml @ 50 mls/hr Q4H IV 02/22/25 06:00 02/23/25 11:56 75 MLS/HR Prazosin HCl 2 mg Q8HR PO 02/22/25 14:00 Atorvastatin Calcium 20 mg HS PO 02/22/25 22:00 Examination: LUNGS:Normal, CVS:Normal (Sinus tachycardia low 100s bpm. Continues on Nicardipine drip at 7.5), NEURO:Normal laboratory and microbiology Laboratory Tests 02/23/25 03:55 Test 02/23/25 03:55 Range/Units Serum Glucose 99 74-106 mg/dL Problem List/Assessment/Plan Problem List/Assessment/Plan Chest pain in the setting of hypertensive crisis NSTEMI, likely type 2 secondary to above Questionable history of carotid artery stenosis with stent placement Triglyceridemia, newly diagnosed CHANDRA on CKD Thyroid disease HX of multiple TIAs Plan/Recommendation (Dr. Dumont) * Transthoracic echocardiogram revealed LVEF of 65% * Moderate degree LVH and moderate degree LV diastolic dysfunction * Continue nicardipine drip and clonidine patch for blood pressure control * Refused Prazosin (not listed on allergy list) * Plasma metanephrines, renin/aldosterone ratio, cortisol am/pm * Renal artery ultrasound: no evidence of stenosis * Nephrology consultation & recommendations The patient presented with chest pain in the setting of hypertensive crisis. He underwent a cardiac catheterization without catheter based intervention given normal coronaries in 2022. He also underwent a nonischemic Cardiolite stress test last year with Dr. Dumont. [place] [facility] [place] as [place]. Continue blood pressure management control as tolerated given the patient has many allergies/adverse effects to multiple antihypertensives. Thank you for allowing us to participate in this patient's care. Please call if you have any questions or concerns. Critical care time: 30 min. This medical document was created using an electronic medical record system with voice recognition software and computerized dictation system. Although this document has been carefully reviewed, there might still be some phonetic and typographical errors. Occasional wrong-word or ``sound-alike substitutions may have occurred due to the inherent limitations of voice recognition software. These areas are purely typographical due to imperfections of the software programs and do not reflect any compromise in the patient's medical care. Please read the chart carefully and recognize, using context, where these substitutions have occurred. Plan discussed with: Patient, Spouse, Other Date of Service: Feb 23, 2025 Billing Provider: WAQAR JAMES Cardiology Common Codes: [id number] CARE 30-74 MIN GRANT DUMONT MD 02/23/25 1310: Consult Progress Note Problem List/Assessment/Plan Problem List/Assessment/Plan PT WELL KNOWN TO ME. HE HAS GONE TO [facility] AND [facility] FOR YEARS FOR HIS RESISTANT HTN. HE CANNOT TAKE ANY WESTERN MEDS AND REFUSES ALL OFFERED. 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 FU WITH RENAL. HE HAS HAD 2 NEGATIVE CTA ONE 2021 AND ONE IN 2023 SHOWING NO CAD ON HIS CCTA---TROP IS 2/2 TO MALIGNANT HTN, HIS PROGNOSIS IS POOR, HE GOES TO [facility] BUT DEEMED NOT A CANDIDATE FOR RENAL DENERVATION, HIGH RISK FOR CVA, [place], , WAQAR JAMES Feb 23, 2025 12:15 GRANT DUMONT MD Feb 23, 2025 13:10
--- NOTE | 2025-02-23 17:45 | DVHPN2 ---
Reviewed: Care Plan, H&P, Labs, Medications, Previous Orders, Radiology Changes from previous H/P or p: No Changes Eyes: No Pain, No Vision change, No Conjunctivae inflammation, No Eyelid inflammation, No Other, No Redness ENT: No Ear pain, No Ear discharge, No Nose pain, No Nose discharge, No Nose congestion, No Mouth pain, No Mouth swelling, No Throat pain, No Throat swelling, No Other Cardiovascular: Chest Pain; No Palpitations, No Orthopnea, No Paroxysmal Noc. Dyspnea, No Edema, No Lt Headedness; Other (Hypertension) Respiratory: No Cough, No Dry, No Shortness of breath, No SOB with excertion, No Wheezing, No Hemoptysis, No Pleuritic Pain, No Sputum, No Other Gastrointestinal: No Nausea, No Vomiting, No Abdominal Pain, No Diarrhea, No Constipation, No Melena, No Hematochezia, No Other Genitourinary: No Dysuria, No Frequency, No Incontinence, No Hematuria, No Retention, No Other Musculoskeletal: No other; neck pain; No shoulder pain, No arm pain, No back pain, No hand pain, No leg pain, No foot pain Skin: No Rash, No Lesions, No Jaundice, No Bruising, No Other Objective Vitals Vital Signs Date Time Temp Pulse Resp B/P (MAP) Pulse Ox O2 Delivery O2 Flow Rate FiO2 02/23/25 16:00 108 02/23/25 14:09 138/92 02/23/25 13:00 20 98 02/23/25 12:00 98.9 98.9 02/23/25 12:00 Room Air* 0 21 Intake/Output Intake and Output 02/23/25 07:00 Intake Total 730.0 ml Output Total 300 ml Balance 430.0 ml Intake Oral 300 ml IV Total 430.0 ml Output Urine Total 300 ml General Appearance: Alert, Oriented X3, Cooperative, No acute distress HEENT: Atraumatic, PERRLA, EOMI, Mucous membr. moist/pink Neck: Supple Lungs: Clear to auscultation, Normal air movement Cardiovascular: Regular rate, Normal S1, Normal S2, No murmurs, Gallops, Rubs Abdomen: Normal bowel sounds, Soft, No tenderness Extremities: Normal pulses Neuro: Cranial nerves 3-12 NL Psych/Mental Status: Mental status NL Medications Current Medications Medications Dose Ordered Sig/Shayan Route Start Time Stop Time Status Last Admin Dose Admin Aspirin 81 mg DAILY PO 02/22/25 10:00 02/23/25 11:33 81 MG Levothyroxine Sodium 50 mcg QAM@0600 PO 02/22/25 06:00 Clonidine HCl 0.1 mg Q4HP PRN PO 02/21/25 22:30 Sodium Chloride 10 ml Q8HR IV 02/22/25 06:00 02/23/25 13:34 10 ML Ondansetron HCl 4 mg Q4HP PRN IV 02/21/25 22:30 Docusate Sodium 100 mg BIDPRN PRN PO 02/21/25 22:30 Ibuprofen 600 mg Q6HP PRN PO 02/21/25 22:30 02/23/25 00:23 600 MG Famotidine 20 mg DAILY IV 02/22/25 10:00 02/22/25 09:58 20 MG Nitroglycerin 0.4 mg Q5MINP PRN SL 02/21/25 23:15 Diphenhydramine HCl 25 mg Q4HP PRN IV 02/22/25 01:00 02/22/25 22:23 25 MG Nicardipine/ Sodium Chloride 200 ml @ 50 mls/hr Q4H IV 02/22/25 06:00 02/23/25 14:09 75 MLS/HR Prazosin HCl 2 mg Q8HR PO 02/22/25 14:00 Atorvastatin Calcium 20 mg HS PO 02/22/25 22:00 Hydromorphone HCl 1 mg Q6HPRN PRN PO 02/23/25 12:45 02/23/25 14:13 1 MG Laboratory Results Laboratory Tests 02/23/25 03:55 Chemistry Test 02/23/25 03:55 Albumin 3.8 g/dL (3.2-4.8) Calcium Level 8.7 mg/dL (8.7-10.4) Total Protein 5.8 g/dL (5.7-8.2) LFT Test 02/23/25 03:55 Alanine Aminotransferase (ALT) 13 U/L (7-40) Alkaline Phosphatase 56 U/L (46-116) Aspartate Amino Transferase (AST) 28 U/L (13-40) Total Bilirubin 1.0 mg/dL (0.2-1.0) Microbiology Microbiology Date/Time Source Procedure Growth Status 02/23/25 04:00 Nose MRSA Screen - Final Complete Assessment/Plan Assessment/Plan Hypertensive emergency Acute on chronic renal failure Generalized weakness Chest pain, rule out acute myocardial infarction Continuing current management. Continuing with nicardipine drip. We will continuing to wean the patient down Appreciate high tension tester's input Continuing morphine p.r.n. for pain. We will monitor kidney function Plan discussed with: Patient My Orders Orders - BJORN CRUZ MD Procedure Category Date Status Time * Urology Consult CONS 02/23/25 Transmitted 12:41 Hydromorphone Tablet PHA 02/23/25 In Process (Dilaudid Tablet) 12:45 Cardiac DIET 02/23/25 Transmitted Diet-2gna,Lofat,Lochol Dinner Date of Service: Feb 23, 2025 Billing Provider: BJORN CRUZ MD Common Visit Codes: [id number] INP/OBS CARE(HIGH) BJORN CRUZ MD Feb 23, 2025 17:45
--- NOTE | 2025-02-23 18:13 | DVHINCON2 ---
Date of service: Feb 23, 2025 Referring Physician Hospitalist Reason for Consultation history of gross hematuria History of Present Illness History Source: Patient, Spouse/Significant Other, RN Notes, MD Notes, Old Records Exam Limitations: No limitations HPI 54 yo male with CKDIII, accelerated HTN admitted for chest pain. Urology consulted for gross hematuria which has now resolved. pt reports he has had a few occurrences of gross hematuria that self resolves, He was evaluated by urology some years ago but no cystoscopy was performed. Brother has bladder cancer and cystectomy at age 32. Home Meds Active Scripts Isosorbide Dinitrate (Isosorbide Dinitrate) 10 Mg Tab, 20 MG PO TID@06,12,18, #90 TAB Prov:HODA JAIN MD 04/22/20 Hydralazine HCl (Hydralazine HCl) 25 Mg Tab, 25 MG PO Q6HR, #120 TAB Prov:HODA JAIN MD 04/22/20 Reported Medications Levothyroxine Sodium (SYNTHROID TABLET) 50 Mcg Tb, 1 TAB PO DAILY, #30 TAB 5 Ref ills 03/14/21 Omeprazole (Gnp Omeprazole) 20 Mg Tab, 40 MG PO, TAB 03/14/21 Hydroxyzine Hcl (Hydroxyzine Hcl) 25 Mg Tab, 25 MG PO for 30 Days, MG 03/14/21 Potassium Chloride (Klor-Con 8) 8 Meq Tab, 8 MEQ PO, TAB 03/14/21 Furosemide (Furosemide) 40 Mg Tab, 40 MG PO DAILY for 30 Days 03/14/21 Nifedipine (Nifedipine Er) 90 Mg Tab, 1 TAB PO DAILY, #30 TAB 5 Refills 03/14/21 Labetalol Hcl (Labetalol Hcl) 300 Mg Tab, 300 MG PO for 30 Days, MG 03/14/21 Oxycodone W/ Acetaminophen (Percocet 5/325MG) 1 Tab Tb, 1 TAB PO QID, #120 TAB 03/14/21 Aspirin (Aspir-Low) 81 Mg Tab, 81 MG PO DAILY for 30 Days, MG 04/19/20 Past Medical History Cardiac: HTN Patient Family History: Cancer G8 BROTHER FH: brain tumor 19 CHILD FH: breast cancer G8 MOTHER FH: lung cancer G8 FATHER Kidney stones G8 FATHER Seizure disorder (situation) 19 CHILD Smoker: No Hx (Negative) Alocohol: None Drugs: None Domestic Violence: Neg Review of Systems Genitourinary: Hematuria Psychiatric: Headache H&P Exam Vital Signs Vital Signs Date Time Temp Pulse Resp B/P (MAP) Pulse Ox O2 Delivery O2 Flow Rate FiO2 02/23/25 16:00 108 02/23/25 14:09 138/92 02/23/25 13:00 20 98 02/23/25 12:00 98.9 98.9 02/23/25 12:00 Room Air* 0 21 General Appeara: Well developed, Well nourished, Normal Appearance, Mild distress Pulmonary/Respiratory: Normal inspection, Normal breath sounds, Chest non- tender, Lungs clear Cardiovascular/Chest: Tachycardia Neuro/Mental St: Alert, Oriented Appearance: Appropriate appearance, Appropriate insight Eye contact/ Speech: Cooperative, Good eye contact, Normal speech Skin Exam: Normal inspection, Normal color, Warm/dry Labs/Xrays [place] [address] Ph: [phone] DIAGNOSTIC IMAGING Diagnostic Imaging Report : [id number] Signed PATIENT: MARGARET MARTINEZ ACCT: [id number] UNIT: [id number] : 1970 LOC: OVERFLOW ROOM / BED: [address] [place] [address] AGE / SEX: 54 / M ADM STATUS: ADM IN SERVICE 0937 ORDERING PHYSICIAN: WAQAR JAMES PROCEDURE(s): RAC - RENAL ARTERY COMP REASON: Hypertensive crisis rule out stenosis ORDER NUMBER(s): [id number], ACCESSION NUMBER(s): [id number] RENAL DUPLEX ULTRASOUND REASON FOR EXAM: Hypertensive crisis rule out stenosis COMPARISON: RENAL ARTERY LMTD on DOS: 04/19/20 TECHNIQUE: Grayscale imaging of both kidneys is performed. This was followed by duplex scanning of arterial inflow and venous outflow of both kidneys. FINDINGS: RIGHT: The kidney is profoundly echogenic and measures 8.7 cm. No mass lesion or hydronephrosis is seen. The main renal artery peak systolic velocity is normal and measures 51 cm/s. The renal artery/aorta ratio is not elevated. Arcuate artery restive indices (RI) measure 0.7, 0.7 and 0.6 in the superior, mid and inferior aspects, respectively. The renal vein is patent. LEFT: The kidney is profoundly echogenic and measures 9.3 cm. No mass lesion or hydronephrosis is seen. There is a 2.0 x 2.0 x 2.1 cm anechoic, simple cyst at the superior pole. The main renal artery peak systolic velocity is normal and measures 58 cm/s. The renal artery/aorta ratio is not elevated. Arcuate artery restive indices (RI) measure 0.8, 0.7 and 0.7 in the superior, mid and inferior aspects, respectively. The renal vein is not seen. Aorta: Not aneurysmal. PSV: 100 cm/sec. The urinary bladder is not seen. IMPRESSION: No evidence of renal artery stenosis. Echogenic kidneys bilaterally, consistent with medical renal disease. ATED BY: TIMMY ANN MD DICTATED DATE/TIME: 02/22/252324 SIGNED BY: TIMMY ANN MD SIGNED DATE/TIME: 02/22/252324 CC: Labs Test 02/23/25 08:03 02/23/25 03:55 02/22/25 14:47 02/22/25 10:12 Range/Units Cortisol AM Sample 22.53 H 5.27-22.45 ug/dL White Blood Count 9.2 # 4.4-10.8 10^3/uL Red Blood Count 3.63 L 4.5-5.90 10^6/uL Hemoglobin 11.3 L 13.5-17.5 g/dL Hematocrit 30.7 L 41.0-53.0 % Mean Corpuscular Volume 84.5 80.0-100.0 fL Mean Corpuscular Hemoglobin 31.1 28.0-32.0 pg Mean Corpuscular Hemoglobin Concent 36.8 H 32.0-36.0 g/dL Red Cell Distribution Width 13.3 11.8-14.3 % Platelet Count 187 140-450 10^3/uL Mean Platelet Volume 7.5 6.9-10.8 fL Neutrophils (%) (Auto) 74.5 37.0-80.0 % Lymphocytes (%) (Auto) 19.0 10.0-50.0 % Monocytes (%) (Auto) 4.4 0.0-12.0 % Eosinophils (%) (Auto) 1.3 0.0-7.0 % Basophils (%) (Auto) 0.8 0.0-2.0 % Neutrophils # (Auto) 6.8 1.6-8.6 10 ^3/uL Lymphocytes # (Auto) 1.7 0.4-5.4 10 ^3/uL Monocytes # (Auto) 0.4 0-1.3 10 ^3/uL Eosinophils # (Auto) 0.1 0-0.8 10 ^3/uL Basophils # (Auto) 0.1 0-0.2 10 ^3/uL Nucleated Red Blood Cells 0.0 % Sodium Level 142 136-145 mmol/L Potassium Level 3.5 3.5-5.1 mmol/L Chloride Level 107 98-107 mmol/L Carbon Dioxide Level 23 20-31 mmol/L Anion Gap 12 5-15 Blood Urea Nitrogen 67 H 9-23 mg/dL Creatinine 5.56 H 0.700-1.30 mg/dL Glomerular Filtration Rate Calc 11 >90 mL/min BUN/Creatinine Ratio 12.1 10.0-20.0 Serum Glucose 99 74-106 mg/dL Calcium Level 8.7 8.7-10.4 mg/dL Total Bilirubin 1.0 0.2-1.0 mg/dL Aspartate Amino Transferase (AST) 28 13-40 U/L Alanine Aminotransferase (ALT) 13 7-40 U/L Alkaline Phosphatase 56 46-116 U/L Total Protein 5.8 5.7-8.2 g/dL Albumin 3.8 3.2-4.8 g/dL Troponin I High Sensitivity 5273 *H </=54 ng/L Cortisol PM Sample 15.22 3.44-16.76 ug/dL Test 02/22/25 02:53 02/21/25 19:48 02/21/25 18:43 Range/Units Hemoglobin A1c 4.3 <5.7 % A1C Magnesium Level 2.0 1.6-2.6 mg/dL Triglycerides Level 249 H < 150 mg/dL Cholesterol Level 177 < 200 mg/dL LDL Cholesterol 96 < 100 mg/dL HDL Cholesterol 30 L 40-59 mg/dL Thyroid Stimulating Hormone (TSH) 4.89 H 0.55-4.78 uIU/mL Prothrombin Time 10.7 9.3-11.8 sec Prothrombin Time INR 1.01 0.9-1.15 Activated Partial Thromboplast Time 28.9 24.5-34.5 SEC Microbiology Date/Time Source Procedure Growth Status 02/23/25 04:00 Nose MRSA Screen - Final Complete Assessment/Plan Problem List: (1) Hypertensive urgency (2) CHANDRA (acute kidney injury) (3) Headache (4) Acute on chronic renal failure (5) acute chest pain rule out WA (6) Hematuria (7) history of TIA (8) PTSD Plan cystoscopy on outpt basis. Plan discussed with: Patient, Other DARVIN MERAZ NP Feb 23, 2025 18:13
--- NOTE | 2025-02-23 18:54 | DVHINCON2 ---
Date of service: Feb 23, 2025 Referring Physician Abbi Boyce Reason for Consultation HTN urgency and CHANDRA on CKD History of Present Illness 54 Y/O M , known to our office, with history of CKD IIIb, HTN, TIA, hypothyroidism, and PTSD presented with chief complaint of headache, and chest pain. he was found to be in hypertensive urgency, with BP 252/163 mmHg. he has been started on nicardipine drip, and BP has improve. he also had clots in the urine which has resolved. Troponin has uptrended. Cr is 5.5 mg/dl. most recent baseline Cr is 2.5 mg/dl, and it was even lower prior to that. He is only on clonidine patch at home, and has not tolerated any other BP medication pres cribed. Past Medical History CKD HTN TIA carotid artery stenosis PTSD hypothyroidism Past Surgical History stent placement for carotid artery stenosis Allergies: Coded Allergies: Codeine (Verified Allergy, Severe, ANAPHYLAXIS, VOMITING, 02/22/25) Mirtazapine (Verified Allergy, Severe, ANAPHYLAXIS , 02/22/25) Morphine (Verified Allergy, Severe, VOMITING, RASH, 02/22/25) Phenobarbital (Verified Allergy, Severe, ANAPHYLAXIS, 02/22/25) Tramadol (Unverified Allergy, Severe, vomiting, 02/22/25) Acetaminophen (Verified Allergy, Intermediate, RASH, NAUSEOUS, 02/22/25) Hydralazine (Verified Allergy, Intermediate, VOMITING, 02/22/25) Levetiracetam (Verified Allergy, Intermediate, DISORIENTED, LETHARGIC, VOMITING, 02/22/25) Levothyroxine (Verified Allergy, Intermediate, vomiting, 02/22/25) Methyldopa (Verified Allergy, Intermediate, VOMITING, 02/22/25) Phenytoin (Verified Allergy, Intermediate, 05/13/10) BREAKS OUT IN WELTS Prochlorperazine (Verified Allergy, Intermediate, vomiting, 02/22/25) Alprazolam (Verified Adverse Reaction, Intermediate, vomiting, 02/21/25) Amlodipine (Verified Adverse Reaction, Intermediate, vomiting, 02/21/25) Ciprofloxacin (Verified Adverse Reaction, Intermediate, vomiting, 02/21/25) Clonidine (Verified Adverse Reaction, Intermediate, vomiting when taking po , 02/21/25) po makes pt vomit, can tolerate the patch Enalapril (Verified Adverse Reaction, Intermediate, vomiting, 02/21/25) Famotidine (Verified Adverse Reaction, Intermediate, VOMITING, 02/22/25) Finerenone (Verified Adverse Reaction, Intermediate, VOMITING, 02/22/25) Furosemide (Verified Adverse Reaction, Intermediate, VOMITING, 02/22/25) Gabapentin (Verified Adverse Reaction, Intermediate, vomiting, headache, 02/21/25) Hydrochlorothiazide (Verified Adverse Reaction, Intermediate, vomiting, 02/21/25) Hydrocodone (Verified Adverse Reaction, Intermediate, vomiting, headache, 02/21/25) Labetalol (Verified Adverse Reaction, Intermediate, VOMITING, 02/22/25) Losartan (Verified Adverse Reaction, Intermediate, vomiting, 02/21/25) Magnesium Oxide (Verified Adverse Reaction, Intermediate, vomiting, 02/21/25) Methocarbamol (Verified Adverse Reaction, Intermediate, VOMITING, 02/22/25) Metoprolol (Verified Adverse Reaction, Intermediate, vomiting, 02/21/25) Nifedipine (Verified Adverse Reaction, Intermediate, VOMITING, 02/22/25) Nitrofurantoin (Verified Adverse Reaction, Intermediate, VOMITING, 02/22/25) Omeprazole (Verified Adverse Reaction, Intermediate, vomiting, 02/21/25) Ondansetron (Verified Adverse Reaction, Intermediate, VOMITING, 02/22/25) Oxycodone (Verified Adverse Reaction, Intermediate, VOMITING, 02/22/25) Pantoprazole (Verified Adverse Reaction, Intermediate, vomiting, 02/21/25) Potassium Chloride (Verified Adverse Reaction, Intermediate, vomiting, 02/21/25) Rizatriptan (Verified Adverse Reaction, Intermediate, VOMITING, 02/22/25) Sucralfate (Verified Adverse Reaction, Intermediate, vomiting, 02/21/25) Sumatriptan (Verified Adverse Reaction, Intermediate, vomiting, 02/21/25) Tizanidine (Verified Adverse Reaction, Intermediate, VOMITING, LETHARGIC , 02/22/25) Trazodone (Verified Adverse Reaction, Intermediate, severe headache, 02/21/25) Uncoded Allergies: ALL B/P MEDS EXCEPT CLONIDINE (Allergy, Unknown, 02/22/25) ALL PO BP MEDSCAN TAKE CLONIDINE PATCH Home Meds Active Scripts Isosorbide Dinitrate (Isosorbide Dinitrate) 10 Mg Tab, 20 MG PO TID@06,12,18, #90 TAB Prov:HODA JAIN MD 04/22/20 Hydralazine HCl (Hydralazine HCl) 25 Mg Tab, 25 MG PO Q6HR, #120 TAB Prov:HODA JAIN MD 04/22/20 Reported Medications Levothyroxine Sodium (SYNTHROID TABLET) 50 Mcg Tb, 1 TAB PO DAILY, #30 TAB 5 Refills 03/14/21 Omeprazole (Gnp Omeprazole) 20 Mg Tab, 40 MG PO, TAB 03/14/21 Hydroxyzine Hcl (Hydroxyzine Hcl) 25 Mg Tab, 25 MG PO for 30 Days, MG 03/14/21 Potassium Chloride (Klor-Con 8) 8 Meq Tab, 8 MEQ PO, TAB 03/14/21 Furosemide (Furosemide) 40 Mg Tab, 40 MG PO DAILY for 30 Days 03/14/21 Nifedipine (Nifedipine Er) 90 Mg Tab, 1 TAB PO DAILY, #30 TAB 5 Refills 03/14/21 Labetalol Hcl (Labetalol Hcl) 300 Mg Tab, 300 MG PO for 30 Days, MG 03/14/21 Oxycodone W/ Acetaminophen (Percocet 5/325MG) 1 Tab Tb, 1 TAB PO QID, #120 TAB 03/14/21 Aspirin (Aspir-Low) 81 Mg Tab, 81 MG PO DAILY for 30 Days, MG 04/19/20 Current Medications Current Medications Medications (Trade) Dose Ordered Sig/Shayan Route PRN Reason Start Time Stop Time Status Last Admin Nifedipine (Procardia Xl (Time-Release)) 90 mg DAILY PO 02/23/25 10:00 02/22/25 09:39 DC Carvedilol (Coreg Tablet) 6.25 mg Q12HR PO 02/22/25 22:00 02/22/25 09:39 DC Atorvastatin Calcium (Lipitor) 20 mg HS PO 02/22/25 22:00 Hydromorphone HCl (Dilaudid Tablet) 1 mg Q6HPRN PRN PO MODERATE PAIN (4-6 PAIN SCALE) 02/23/25 12:45 02/23/25 14:13 Family History: Cancer G8 BROTHER FH: brain tumor 19 CHILD FH: breast cancer G8 MOTHER FH: lung cancer G8 FATHER Kidney stones G8 FATHER Seizure disorder (situation) 19 CHILD Review of Systems as per HPI, all other systems were reviewed and are negative H&P Exam Vital Signs/I&O Vital Sign Date Time Temp Pulse Resp B/P (MAP) Pulse Ox O2 Delivery O2 Flow Rate FiO2 02/23/25 18:45 105 12 128/82 (97) 94 02/23/25 18:00 Room Air* 0 21 02/23/25 16:00 99.0 99.0 Intake and Output 02/22/25 02/23/25 19:00 07:00 Intake Total 730.0 ml Output Total 300 ml 0 ml Balance -300 ml 730.0 ml Intake Oral 300 ml IV Total 430.0 ml Output Urine Total 300 ml 0 ml Physical Exam Gen: NAD, AAOx3 HEENT: NC, AT Lungs: CTA b/l Cardiac:RRR, no murmur Abd: soft, no tenderness Ext: no edema Neuro: no focal deficits Labs/Diagnostic Data Labs/Diagnostic Data Laboratory Tests Test 02/23/25 08:03 02/23/25 03:55 02/22/25 14:47 02/22/25 12:00 Range/Units Cortisol AM Sample 22.53 H 5.27-22.45 ug/dL White Blood Count 9.2 # 4.4-10.8 10^3/uL Red Blood Count 3.63 L 4.5-5.90 10^6/uL Hemoglobin 11.3 L 13.5-17.5 g/dL Hematocrit 30.7 L 41.0-53.0 % Mean Corpuscular Volume 84.5 80.0-100.0 fL Mean Corpuscular Hemoglobin 31.1 28.0-32.0 pg Mean Corpuscular Hemoglobin Concent 36.8 H 32.0-36.0 g/dL Red Cell Distribution Width 13.3 11.8-14.3 % Platelet Count 187 140-450 10^3/uL Mean Platelet Volume 7.5 6.9-10.8 fL Neutrophils (%) (Auto) 74.5 37.0-80.0 % Lymphocytes (%) (Auto) 19.0 10.0-50.0 % Monocytes (%) (Auto) 4.4 0.0-12.0 % Eosinophils (%) (Auto) 1.3 0.0-7.0 % Basophils (%) (Auto) 0.8 0.0-2.0 % Neutrophils # (Auto) 6.8 1.6-8.6 10 ^3/uL Lymphocytes # (Auto) 1.7 0.4-5.4 10 ^3/uL Monocytes # (Auto) 0.4 0-1.3 10 ^3/uL Eosinophils # (Auto) 0.1 0-0.8 10 ^3/uL Basophils # (Auto) 0.1 0-0.2 10 ^3/uL Nucleated Red Blood Cells 0.0 % Sodium Level 142 136-145 mmol/L Potassium Level 3.5 3.5-5.1 mmol/L Chloride Level 107 98-107 mmol/L Carbon Dioxide Level 23 20-31 mmol/L Anion Gap 12 5-15 Blood Urea Nitrogen 67 H 9-23 mg/dL Creatinine 5.56 H 0.700-1.30 mg/dL Glomerular Filtration Rate Calc 11 >90 mL/min BUN/Creatinine Ratio 12.1 10.0-20.0 Serum Glucose 99 74-106 mg/dL Calcium Level 8.7 8.7-10.4 mg/dL Total Bilirubin 1.0 0.2-1.0 mg/dL Aspartate Amino Transferase (AST) 28 13-40 U/L Alanine Aminotransferase (ALT) 13 7-40 U/L Alkaline Phosphatase 56 46-116 U/L Total Protein 5.8 5.7-8.2 g/dL Albumin 3.8 3.2-4.8 g/dL Troponin I High Sensitivity 5273 *H 4495 *H </=54 ng/L Cortisol PM Sample 15.22 3.44-16.76 ug/dL Test 02/22/25 10:12 02/22/25 08:55 02/22/25 05:54 02/22/25 02:53 Range/Units Troponin I High Sensitivity 4114 *H 2398 *H 1173 *H </=54 ng/L White Blood Count 14.3 #H 4.4-10.8 10^3/uL Red Blood Count 3.88 L 4.5-5.90 10^6/uL Hemoglobin 12.1 L 13.5-17.5 g/dL Hematocrit 33.4 L 41.0-53.0 % Mean Corpuscular Volume 86.1 80.0-100.0 fL Mean Corpuscular Hemoglobin 31.1 28.0-32.0 pg Mean Corpuscular Hemoglobin Concent 36.1 H 32.0-36.0 g/dL Red Cell Distribution Width 13.2 11.8-14.3 % Platelet Count 141 140-450 10^3/uL Mean Platelet Volume 7.7 6.9-10.8 fL Neutrophils (%) (Auto) 93.8 H 37.0-80.0 % Lymphocytes (%) (Auto) 4.4 L 10.0-50.0 % Monocytes (%) (Auto) 1.4 0.0-12.0 % Eosinophils (%) (Auto) 0.1 0.0-7.0 % Basophils (%) (Auto) 0.3 0.0-2.0 % Neutrophils # (Auto) 13.5 H 1.6-8.6 10 ^3/uL Lymphocytes # (Auto) 0.6 0.4-5.4 10 ^3/uL Monocytes # (Auto) 0.2 0-1.3 10 ^3/uL Eosinophils # (Auto) 0 0-0.8 10 ^3/uL Basophils # (Auto) 0 0-0.2 10 ^3/uL Nucleated Red Blood Cells 0.2 % Sodium Level 139 136-145 mmol/L Potassium Level 3.2 L 3.5-5.1 mmol/L Chloride Level 106 98-107 mmol/L Carbon Dioxide Level 21 20-31 mmol/L Anion Gap 12 5-15 Blood Urea Nitrogen 65 #H 9-23 mg/dL Creatinine 5.15 H 0.700-1.30 mg/dL Glomerular Filtration Rate Calc 13 >90 mL/min BUN/Creatinine Ratio 12.6 10.0-20.0 Serum Glucose 153 H 74-106 mg/dL Hemoglobin A1c 4.3 <5.7 % A1C Calcium Level 9.8 8.7-10.4 mg/dL Magnesium Level 2.0 1.6-2.6 mg/dL Total Bilirubin 1.1 H 0.2-1.0 mg/dL Aspartate Amino Transferase (AST) 19 13-40 U/L Alanine Aminotransferase (ALT) 13 7-40 U/L Alkaline Phosphatase 65 46-116 U/L Total Protein 6.4 5.7-8.2 g/dL Albumin 4.1 3.2-4.8 g/dL Triglycerides Level 249 H < 150 mg/dL Cholesterol Level 177 < 200 mg/dL LDL Cholesterol 96 < 100 mg/dL HDL Cholesterol 30 L 40-59 mg/dL Test 02/22/25 00:15 02/21/25 19:48 02/21/25 18:43 Range/Units Troponin I High Sensitivity 541 *H 45 43 </=54 ng/L Thyroid Stimulating Hormone (TSH) 4.89 H 0.55-4.78 uIU/mL White Blood Count 10.7 4.4-10.8 10^3/uL Red Blood Count 4.24 L 4.5-5.90 10^6/uL Hemoglobin 13.1 L 13.5-17.5 g/dL Hematocrit 35.6 L 41.0-53.0 % Mean Corpuscular Volume 83.9 80.0-100.0 fL Mean Corpuscular Hemoglobin 30.9 28.0-32.0 pg Mean Corpuscular Hemoglobin Concent 36.8 H 32.0-36.0 g/dL Red Cell Distribution Width 13.1 11.8-14.3 % Platelet Count 154 140-450 10^3/uL Mean Platelet Volume 7.3 6.9-10.8 fL Neutrophils (%) (Auto) 77.8 37.0-80.0 % Lymphocytes (%) (Auto) 16.3 10.0-50.0 % Monocytes (%) (Auto) 3.7 0.0-12.0 % Eosinophils (%) (Auto) 1.3 0.0-7.0 % Basophils (%) (Auto) 0.9 0.0-2.0 % Neutrophils # (Auto) 8.3 1.6-8.6 10 ^3/uL Lymphocytes # (Auto) 1.7 0.4-5.4 10 ^3/uL Monocytes # (Auto) 0.4 0-1.3 10 ^3/uL Eosinophils # (Auto) 0.1 0-0.8 10 ^3/uL Basophils # (Auto) 0.1 0-0.2 10 ^3/uL Nucleated Red Blood Cells 0.1 % Prothrombin Time 10.7 9.3-11.8 sec Prothrombin Time INR 1.01 0.9-1.15 Activated Partial Thromboplast Time 28.9 24.5-34.5 SEC Sodium Level 139 136-145 mmol/L Potassium Level 3.6 3.5-5.1 mmol/L Chloride Level 105 98-107 mmol/L Carbon Dioxide Level 23 20-31 mmol/L Anion Gap 11 5-15 Blood Urea Nitrogen 75 H 9-23 mg/dL Creatinine 5.08 H 0.700-1.30 mg/dL Glomerular Filtration Rate Calc 13 >90 mL/min BUN/Creatinine Ratio 14.8 10.0-20.0 Serum Glucose 102 74-106 mg/dL Calcium Level 9.8 8.7-10.4 mg/dL Total Bilirubin 0.9 0.2-1.0 mg/dL Aspartate Amino Transferase (AST) 18 13-40 U/L Alanine Aminotransferase (ALT) 17 7-40 U/L Alkaline Phosphatase 78 46-116 U/L Total Protein 6.8 5.7-8.2 g/dL Albumin 4.5 3.2-4.8 g/dL Microbiology Date/Time Source Procedure Growth Status 02/23/25 04:00 Nose MRSA Screen - Final Complete Assessment CHANDRA from hemodynamic changes CKD stage IIIb HTN emergency elevated troponin, r/o NSTEMI h/o carotid artery stenosis s/p stent h/o TIA Hypothyroidism PTSD Plan: Continue Nicardipine drip will gradually add nifedipine PO at low dose along with Benadryl. apparently when he started the nicardipine drip he had a reaction but resolved when benadryl was given. continue clonidine patch cardiology consult Urology consult appreciated daily BMP Strict I&Os Plan discussed with: Patient GREGORY BEAVERS MD Feb 23, 2025 18:54
--- NOTE | 2025-02-23 21:26 | DVH ---
Exam: CT CT AB PEL WO CON-NO ORAL OR IV History: gross hematuria Comparison Study: None TECHNIQUE: Multidetector CT of the abdomen and pelvis without IV contrast. Axial, coronal and sagitta l multiplanar reformats were obtained from the axial data set by the technologist. Radiation Dose Information: CT Dose: CTDI volume is 6.8 mGy. Dose-length product is 378.54 mGy*cm FINDINGS: Trace bilateral pleural effusion with bibasilar atelectasis. Mild cardiomegaly with trace pericardial effusion. Mild hepatomegaly. Otherwise, liver, spleen, pancreas and adrenal glands unremarkable. Appears to be sludge within the gallbladder with no evidence of gallbladder wall thickening. There is Fat stranding adjacent to the portal vein. Appears to be dilatation of the distal SMV extend ing into the portal vein with Limited evaluation given noncontrast imaging. 0.7 cm nonobstructing left renal calculus. Bilateral ureters and urinary bladder are unremarkable. Mi bo-ii-bydyvecq distention of the urinary bladder. Prostate measures 3.6 by 4.1 by 3.4 cm. Stomach is unremarkable. Mild fat stranding adjacent to The duodenal is most likely from the periport al fat stranding. The small bowel loops otherwise unremarkable. Appendix is not definitely visualized . Question appendectomy. Mild wall thickening of the ascending colon which is most likely from inade quate distension. Small to moderate amount of fecal material within the colon. No evidence of intraperitoneal free air or free fluid. Left upper to mid abdominal mesenteric fat stranding with associated shotty lymph nodes. No evidence of aortic aneurysm. Minimal atherosclerotic calcification of the aorta and bilateral yuridia acs. No significant lymphadenopathy. The soft tissues are unremarkable. Small fat containing left inguinal hernia. No destructive osseous lesions noted. Punctate sclerotic focus of the bilateral proximal femur which may represent small [place]. IMPRESSION: Nonspecific Mesenteric Fat stranding over the left upper to midabdomen with associated shotty mesent mindy lymph nodes. Correlate for mesenteric panniculitis. There is periportal fat stranding and distention of the distal SMV with limited evaluation given nonc ontrast imaging. Imaging in portal venous phase is recommended for further evaluation. Mild segmental wall thickening of the ascending colon which may be from inadequate distention with mi ld colitis not excluded. Nonobstructing left renal lower pole calculus. Cmas-ku-isgblnev distention of the urinary bladder which is otherwise unremarkable. Possible tumefactive sludge within the gallbladder. Right upper quadrant ultrasound should be consid ered for further evaluation. Additional findings as above
[2025-02-24] VITALS (76 sets, daily range): BP systolic 117–151; BP diastolic 69–92; PULSE 99–127; RESP 11–23; TEMP 98.3–98.9; O2SAT 84–96
[2025-02-24] MEDS: ONDANSETRON HCL 4 MG/2 ML VIAL IV PRN (12:06)
--- NOTE | 2025-02-24 15:12 | DVH ---
RIGHT Upper Extremity Venous Duplex Clinical History: edema Comparison: None Findings: Duplex Doppler evaluation of the venous system of the RIGHT lower neck and upper extremity including color Doppler and spectral/pulsed waveform analysis was performed. The internal jugular vein demonstrates appropriate compressibility and waveform variability. The subclavian vein is patent on color Doppler evaluation without intraluminal thrombus and demonstra rae waveform variability. The visualized portion of the brachiocephalic vein is patent on color Doppler evaluation without intr aluminal thrombus and demonstrates waveform variability. The axillary vein demonstrates appropriate compressibility and waveform variability. The brachial veins demonstrate appropriate compressibility and patency on Doppler evaluation. The basilic vein demonstrates appropriate compressibility and patency on Doppler evaluation. The cephalic vein demonstrates appropriate compressibility and patency on Doppler evaluation. Impression: No venous thrombus identified in the RIGHT upper extremity vessels evaluated above. If clinical concern/symptoms persist or worsen, short-interval follow-up study is suggested.
--- NOTE | 2025-02-24 16:09 | DVHPN2 ---
Subjective seen in bed with no headaches Reviewed: Care Plan, H&P, Labs, Medications, Previous Orders, Radiology Changes from previous H/P or p: No Changes Eyes: No Pain, No Vision change, No Conjunctivae inflammation, No Eyelid inflammation, No Other, No Redness ENT: No Ear pain, No Ear discharge, No Nose pain, No Nose discharge, No Nose congestion, No Mouth pain, No Mouth swelling, No Throat pain, No Throat swelling, No Other Cardiovascular: Chest Pain; No Palpitations, No Orthopnea, No Paroxysmal Noc. Dyspnea, No Edema, No Lt Headedness; Other (Hypertension) Respiratory: No Cough, No Dry, No Shortness of breath, No SOB with excertion, No Wheezing, No Hemoptysis, No Pleuritic Pain, No Sputum, No Other Gastrointestinal: No Nausea, No Vomiting, No Abdominal Pain, No Diarrhea, No Constipation, No Melena, No Hematochezia, No Other Genitourinary: No Dysuria, No Frequency, No Incontinence, No Hematuria, No Retention, No Other Musculoskeletal: No other; neck pain; No shoulder pain, No arm pain, No back pain, No hand pain, No leg pain, No foot pain Skin: No Rash, No Lesions, No Jaundice, No Bruising, No Other Objective Vitals Vital Signs Date Time Temp Pulse Resp B/P (MAP) Pulse Ox O2 Delivery O2 Flow Rate FiO2 02/24/25 15:51 141/85 02/24/25 15:45 101 13 91 02/24/25 14:00 Nasal Cannula* 4 36 02/24/25 12:00 98.3 98.3 Intake/Output Intake and Output 02/24/25 07:00 Intake Total 3750 ml Output Total 2000 ml Balance 1750 ml Intake Oral 1925 ml IV Total 1825 ml Output Urine Total 2000 ml General Appearance: Alert, Oriented X3, Cooperative, No acute distress HEENT: Atraumatic, PERRLA, EOMI, Mucous membr. moist/pink Neck: Supple Lungs: Clear to auscultation, Normal air movement Cardiovascular: Regular rate, Normal S1, Normal S2, No murmurs, Gallops, Rubs Abdomen: Normal bowel sounds, Soft, No tenderness Extremities: Normal pulses Neuro: Cranial nerves 3-12 NL Psych/Mental Status: Mental status NL Medications Current Medications Medications Dose Ordered Sig/Shayan Route Start Time Stop Time Status Last Admin Dose Admin Aspirin 81 mg DAILY PO 02/22/25 10:00 02/24/25 09:39 81 MG Levothyroxine Sodium 50 mcg QAM@0600 PO 02/22/25 06:00 Clonidine HCl 0.1 mg Q4HP PRN PO 02/21/25 22:30 Sodium Chloride 10 ml Q8HR IV 02/22/25 06:00 02/24/25 13:58 10 ML Ondansetron HCl 4 mg Q4HP PRN IV 02/21/25 22:30 02/24/25 12:06 4 MG Docusate Sodium 100 mg BIDPRN PRN PO 02/21/25 22:30 Ibuprofen 600 mg Q6HP PRN PO 02/21/25 22:30 02/23/25 00:23 600 MG Famotidine 20 mg DAILY IV 02/22/25 10:00 02/24/25 09:42 20 MG Nitroglycerin 0.4 mg Q5MINP PRN SL 02/21/25 23:15 Diphenhydramine HCl 25 mg Q4HP PRN IV 02/22/25 01:00 02/24/25 12:38 25 MG Nicardipine/ Sodium Chloride 200 ml @ 50 mls/hr Q4H IV 02/22/25 06:00 02/24/25 15:51 100 MLS/HR Prazosin HCl 2 mg Q8HR PO 02/22/25 14:00 Atorvastatin Calcium 20 mg HS PO 02/22/25 22:00 Hydromorphone HCl 1 mg Q6HPRN PRN PO 02/23/25 12:45 02/24/25 13:22 1 MG Laboratory Results Laboratory Tests 02/23/25 03:55 Microbiology Microbiology Date/Time Source Procedure Growth Status 02/23/25 04:00 Nose MRSA Screen - Final Complete Assessment/Plan Assessment/Plan Hypertensive emergency Acute on chronic renal failure Generalized weakness Chest pain, rule out acute myocardial infarction Continuing current management. off nicardipine continue clonidine Appreciate differential repairer's and nephrology input Continuing morphine p.r.n. for pain. We will monitor kidney function Plan discussed with: Patient My Orders Orders - BJORN CRUZ MD Procedure Category Date Status Time Rt Upper Dvt US 02/24/25 Resulted 13:53 Date of Service: Feb 24, 2025 Billing Provider: BJORN CRUZ MD Common Visit Codes: [id number] INP/OBS CARE(HIGH) BJORN CRUZ MD Feb 24, 2025 16:09
--- NOTE | 2025-02-24 19:15 | DVHPN2 ---
Progress Note - Dictate Date Seen: Feb 24, 2025 Medical Necessity Reason Pt with a Central, PICC or Fol: No Subjective no new symptoms vital signs Vital Sign Date Time Temp Pulse Resp B/P (MAP) Pulse Ox O2 Delivery O2 Flow Rate FiO2 02/24/25 17:30 109 15 142/84 (103) 89 02/24/25 16:00 98.5 98.5 02/24/25 16:00 Nasal Cannula* 4 36 Total Intake and Output 02/23/25 02/23/25 02/24/25 15:00 23:00 07:00 Intake Total 1120 ml 1280 ml 1350 ml Output Total 1150 ml 850 ml Balance 1120 ml 130 ml 500 ml medications Current Medications Medications Dose Ordered Sig/Shayan Route Start Time Stop Time Status Last Admin Dose Admin Aspirin 81 mg DAILY PO 02/22/25 10:00 02/24/25 09:39 81 MG Levothyroxine Sodium 50 mcg QAM@0600 PO 02/22/25 06:00 Clonidine HCl 0.1 mg Q4HP PRN PO 02/21/25 22:30 Sodium Chloride 10 ml Q8HR IV 02/22/25 06:00 02/24/25 13:58 10 ML Ondansetron HCl 4 mg Q4HP PRN IV 02/21/25 22:30 02/24/25 12:06 4 MG Docusate Sodium 100 mg BIDPRN PRN PO 02/21/25 22:30 Ibuprofen 600 mg Q6HP PRN PO 02/21/25 22:30 02/23/25 00:23 600 MG Famotidine 20 mg DAILY IV 02/22/25 10:00 02/24/25 09:42 20 MG Nitroglycerin 0.4 mg Q5MINP PRN SL 02/21/25 23:15 Diphenhydramine HCl 25 mg Q4HP PRN IV 02/22/25 01:00 02/24/25 12:38 25 MG Nicardipine/ Sodium Chloride 200 ml @ 50 mls/hr Q4H IV 02/22/25 06:00 02/24/25 15:51 100 MLS/HR Prazosin HCl 2 mg Q8HR PO 02/22/25 14:00 Atorvastatin Calcium 20 mg HS PO 02/22/25 22:00 Hydromorphone HCl 1 mg Q6HPRN PRN PO 02/23/25 12:45 02/24/25 13:22 1 MG objective Gen: NAD, AAOx3 HEENT: NC, AT Lungs: CTA b/l Cardiac:RRR, no murmur Abd: soft, no tenderness Ext: no edema Neuro: no focal deficits laboratory and microbiology Laboratory Tests 02/23/25 03:55 Test 02/23/25 03:55 Range/Units Serum Glucose 99 74-106 mg/dL Assessment/Plan CHANDRA from hemodynamic changes CKD stage IIIb HTN emergency elevated troponin, r/o NSTEMI h/o carotid artery stenosis s/p stent h/o TIA Hypothyroidism PTSD Plan: Continue Nicardipine drip Start nifedipine ER PO 30 mg TID. will give Benadryl along with. apparently when he started the nicardipine drip he had a reaction but resolved when benadryl was given. continue clonidine patch cardiology consult Urology consult appreciated daily BMP Strict I&Os Plan discussed with: Patient, Spouse GREGORY BEAVERS MD Feb 24, 2025 19:15
[2025-02-25] VITALS (26 sets, daily range): BP systolic 106–144; BP diastolic 57–89; PULSE 111–138; RESP 14–38; TEMP 97.8–98.8; O2SAT 83–95
[2025-02-25 04:06] LABS: Anion Gap 13 (5-15); Potassium 4.0 mmol/L (3.5-5.1); Sodium 139 mmol/L (136-145)
[2025-02-25 04:07] LABS: Carbon Dioxide 18 mmol/L (20-31); Chloride 108 mmol/L (98-107)
[2025-02-25 04:08] LABS: Calcium 8.5 mg/dL (8.7-10.4)
[2025-02-25 04:12] LABS: BUN/Creatinine Ratio 10.9 (10.0-20.0); Magnesium 2.1 mg/dL (1.6-2.6)
[2025-02-25 04:13] LABS: Blood Urea Nitrogen 56 mg/dL (9-23); Glucose 116 mg/dL (74-106)
[2025-02-25] MEDS: LORazepam 2MG/ML-1ML VIAL IV PRN (11:25)
--- NOTE | 2025-02-25 12:13 | DVHPN2 ---
Subjective seen in bed with no headaches Reviewed: Care Plan, H&P, Labs, Medications, Previous Orders, Radiology Changes from previous H/P or p: No Changes Eyes: No Pain, No Vision change, No Conjunctivae inflammation, No Eyelid inflammation, No Other, No Redness ENT: No Ear pain, No Ear discharge, No Nose pain, No Nose discharge, No Nose congestion, No Mouth pain, No Mouth swelling, No Throat pain, No Throat swelling, No Other Cardiovascular: Chest Pain; No Palpitations, No Orthopnea, No Paroxysmal Noc. Dyspnea, No Edema, No Lt Headedness; Other (Hypertension) Respiratory: No Cough, No Dry, No Shortness of breath, No SOB with excertion, No Wheezing, No Hemoptysis, No Pleuritic Pain, No Sputum, No Other Gastrointestinal: No Nausea, No Vomiting, No Abdominal Pain, No Diarrhea, No Constipation, No Melena, No Hematochezia, No Other Genitourinary: No Dysuria, No Frequency, No Incontinence, No Hematuria, No Retention, No Other Musculoskeletal: No other; neck pain; No shoulder pain, No arm pain, No back pain, No hand pain, No leg pain, No foot pain Skin: No Rash, No Lesions, No Jaundice, No Bruising, No Other Objective Vitals Vital Signs Date Time Temp Pulse Resp B/P (MAP) Pulse Ox O2 Delivery O2 Flow Rate FiO2 02/25/25 11:45 127 23 139/81 (100) 90 02/25/25 07:57 Nasal Cannula* 4 36 02/25/25 04:15 97.8 97.8 Intake/Output Intake and Output 02/25/25 07:00 Intake Total 3900 ml Output Total 1425 ml Balance 2475 ml Intake Oral 1400 ml IV Total 2500 ml Output Urine Total 1425 ml General Appearance: Alert, Oriented X3, Cooperative, No acute distress HEENT: Atraumatic, PERRLA, EOMI, Mucous membr. moist/pink Neck: Supple Lungs: Clear to auscultation, Normal air movement Cardiovascular: Regular rate, Normal S1, Normal S2, No murmurs, Gallops, Rubs Abdomen: Normal bowel sounds, Soft, No tenderness Extremities: Normal pulses Neuro: Cranial nerves 3-12 NL Psych/Mental Status: Mental status NL Medications Current Medications Medications Dose Ordered Sig/Shayan Route Start Time Stop Time Status Last Admin Dose Admin Aspirin 81 mg DAILY PO 02/22/25 10:00 02/25/25 10:10 81 MG Levothyroxine Sodium 50 mcg QAM@0600 PO 02/22/25 06:00 Clonidine HCl 0.1 mg Q4HP PRN PO 02/21/25 22:30 Sodium Chloride 10 ml Q8HR IV 02/22/25 06:00 02/25/25 06:18 10 ML Ondansetron HCl 4 mg Q4HP PRN IV 02/21/25 22:30 02/25/25 09:54 4 MG Docusate Sodium 100 mg BIDPRN PRN PO 02/21/25 22:30 Ibuprofen 600 mg Q6HP PRN PO 02/21/25 22:30 02/23/25 00:23 600 MG Famotidine 20 mg DAILY IV 02/22/25 10:00 02/25/25 10:10 20 MG Nitroglycerin 0.4 mg Q5MINP PRN SL 02/21/25 23:15 Diphenhydramine HCl 25 mg Q4HP PRN IV 02/22/25 01:00 02/25/25 10:18 25 MG Nicardipine/ Sodium Chloride 200 ml @ 50 mls/hr Q4H IV 02/22/25 06:00 02/25/25 07:21 100 MLS/HR Prazosin HCl 2 mg Q8HR PO 02/22/25 14:00 Atorvastatin Calcium 20 mg HS PO 02/22/25 22:00 Hydromorphone HCl 1 mg Q6HPRN PRN PO 02/23/25 12:45 02/25/25 09:53 1 MG Nifedipine 30 mg TID PO 02/24/25 19:15 02/25/25 06:18 30 MG Lorazepam 1 mg Q3HP PRN IV 02/25/25 10:30 02/25/25 11:25 1 MG Laboratory Results Laboratory Tests 02/23/25 03:55 02/25/25 03:26 Chemistry Test 02/25/25 03:26 Calcium Level 8.5 mg/dL (8.7-10.4) L Magnesium Level 2.1 mg/dL (1.6-2.6) Microbiology Microbiology Date/Time Source Procedure Growth Status 02/23/25 04:00 Nose MRSA Screen - Final Complete Assessment/Plan Assessment/Plan Hypertensive emergency Acute on chronic renal failure Generalized weakness Chest pain, rule out acute myocardial infarction Continuing current management. back on nicardipine overnight continue clonidine nifedipine for better BP control Appreciate ware carrier's and nephrology input Continuing morphine p.r.n. for pain. We will monitor kidney function Creat baseline around 2-3 now 5.9 Plan discussed with: Patient My Orders Orders - BJORN CRUZ MD Procedure Category Date Status Time Rt Upper Dvt US 02/24/25 Resulted 13:53 Lorazepam 2mg/Ml Inj PHA 02/25/25 In Process (Ativan Inj) 10:30 Date of Service: Feb 25, 2025 Billing Provider: BJORN CRUZ MD Common Visit Codes: [id number] INP/OBS CARE(HIGH) BJORN CRUZ MD Feb 25, 2025 12:13
--- NOTE | 2025-02-25 14:32 | DVH ---
EXAM: XY CHEST XRAY 1 VIEW Indication: pain Technique: Single frontal view of the chest was obtained Comparison: XY CHEST PORTABLE on DOS: 02/21/25, XY CHEST PORTABLE on DOS: 01/23/23, CHEST PORTABLE on D OS: 03/14/21, CHEST PORTABLE on DOS: 04/18/20 FINDINGS: Lines and Tubes: None Lungs: Multifocal right lung consolidative opacities worsened compared to prior exams. Trace bilateral pleural effusions. Cardiomediastinal contours: Normal. Bones: No acute osseous abnormality. IMPRESSION: Interval development of right lung consolidative opacities and trace bilateral pleural effusions.
[2025-02-25] MEDS: LEVALBUTEROL HCL 1.25 MG/3 ML NEB NEB ONE (14:45)
[2025-02-25] MEDS: IPRATROPIUM BROM 0.5 MG/2.5ML INH SOL NEB ONE (14:45)
[2025-02-25] MEDS: IPRATROPIUM BROM 0.5 MG/2.5ML INH SOL ONE (15:12)
[2025-02-25] MEDS: LEVALBUTEROL HCL 1.25 MG/3 ML NEB ONE (15:13)
--- NOTE | 2025-02-25 15:22 | ECG ---
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
--- NOTE | 2025-02-25 15:23 | ECG ---
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
[2025-02-25 15:56] LABS: Base Excess -8.1 mmol/L (-2.0-3.0)
[2025-02-25] MEDS ORDERED: FUROSEMIDE 100 MG/10ML VIAL IV ONE (17:15)
--- NOTE | 2025-02-25 17:22 | DVHPN2 ---
Progress Note - Dictate Date Seen: Feb 25, 2025 Medical Necessity Reason Pt with a Central, PICC or Fol: No Subjective no new symptoms vital signs Vital Sign Date Time Temp Pulse Resp B/P (MAP) Pulse Ox O2 Delivery O2 Flow Rate FiO2 02/25/25 15:12 20 91 Oxymizer 10 72 72 02/25/25 14:15 130 149/80 (103) 02/25/25 04:15 97.8 97.8 Total Intake and Output 02/24/25 02/24/25 02/25/25 15:00 23:00 07:00 Intake Total 1400 ml 1700 ml 800 ml Output Total 1150 ml 275 ml Balance 1400 ml 550 ml 525 ml medications Current Medications Medications Dose Ordered Sig/Shayan Route Start Time Stop Time Status Last Admin Dose Admin Aspirin 81 mg DAILY PO 02/22/25 10:00 02/25/25 10:10 81 MG Levothyroxine Sodium 50 mcg QAM@0600 PO 02/22/25 06:00 Clonidine HCl 0.1 mg Q4HP PRN PO 02/21/25 22:30 Sodium Chloride 10 ml Q8HR IV 02/22/25 06:00 02/25/25 14:01 10 ML Ondansetron HCl 4 mg Q4HP PRN IV 02/21/25 22:30 02/25/25 09:54 4 MG Docusate Sodium 100 mg BIDPRN PRN PO 02/21/25 22:30 Ibuprofen 600 mg Q6HP PRN PO 02/21/25 22:30 02/23/25 00:23 600 MG Famotidine 20 mg DAILY IV 02/22/25 10:00 02/25/25 10:10 20 MG Nitroglycerin 0.4 mg Q5MINP PRN SL 02/21/25 23:15 Diphenhydramine HCl 25 mg Q4HP PRN IV 02/22/25 01:00 02/25/25 14:06 25 MG Nicardipine/ Sodium Chloride 200 ml @ 50 mls/hr Q4H IV 02/22/25 06:00 02/25/25 07:21 100 MLS/HR Prazosin HCl 2 mg Q8HR PO 02/22/25 14:00 Hold Atorvastatin Calcium 20 mg HS PO 02/22/25 22:00 Hydromorphone HCl 1 mg Q6HPRN PRN PO 02/23/25 12:45 02/25/25 09:53 1 MG Nifedipine 30 mg TID PO 02/24/25 19:15 02/25/25 14:05 30 MG Lorazepam 1 mg Q3HP PRN IV 02/25/25 10:30 02/25/25 11:25 1 MG objective Gen: NAD, AAOx3 HEENT: NC, AT Lungs: CTA b/l Cardiac:RRR, no murmur Abd: soft, no tenderness Ext: no edema Neuro: no focal deficits laboratory and microbiology Laboratory Tests 02/25/25 03:26 02/23/25 03:55 Test 02/25/25 03:26 Range/Units Serum Glucose 116 H 74-106 mg/dL Assessment/Plan CHANDRA from hemodynamic changes CKD stage IIIb HTN emergency Acute hypoxic respiratory failure on supplemental oxygen Acute pulmonary edema elevated troponin, r/o NSTEMI h/o carotid artery stenosis s/p stent h/o TIA Hypothyroidism PTSD Plan: Lasix 80 mg IV x1 Currently on Nicardipine drip Did not tolerate nifedipine PO, in order to wean off Nicardipine drip. Given development of acute pulmonary edema , would recommend switching to Nitroglycerin drip if agreed by cardiology and tolerated by patient. continue clonidine patch cardiology consult Urology consult appreciated daily BMP Strict I&Os Discussed with RN, and patients at bedside Plan discussed with: Patient, Spouse, Other GREGORY BEAVERS MD Feb 25, 2025 17:22
[2025-02-25] MEDS: FUROSEMIDE 100 MG/10ML VIAL IV ONE (17:30)
[2025-02-25] MEDS ORDERED: IPRATROPIUM BROM 0.5 MG/2.5ML INH SOL NEB PRN (18:45)
[2025-02-25] MEDS ORDERED: LEVALBUTEROL HCL 1.25 MG/3 ML NEB NEB PRN (18:45)
[2025-02-25] MEDS: PROPOFOL 100 ML IV ONE (19:57)
[2025-02-25] MEDS: MIDAZOLAM DRIP 50 mg/50mL 50 ML IV ONE (19:57)
[2025-02-25] MEDS: NOREPINEPHRINE 8 MG/250ML KIT 250 ML IV ONE (20:15)
--- NOTE | 2025-02-25 20:40 | ED.PDOC ---
Was a procedure done? 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 (Antonio Garibay MD) Indication: Hypotension Room prepared for procedure: Yes Human Resources Office Assistant performed hand hygien: Yes Maximal sterile barrier precau: Mask/Eye shield, Sterile gown, Sterlie gloves, Large sterlie drape Skin Preparation: Chlorhexidine gluconate Skin preparation completely dr: Yes Insertion site: Right, Femoral Central line catheter type: Oay-wigkrugc-ara dialysis Number of lumens: 3 Central line exchanged over a: Yes Antiseptic ointment applied to: Yes Post Assessment: Proper placement Informed consent obtained: Yes Risks/benefits/alt described: Yes Intubation Indication: Respiratory Insufficiency, Altered Mental Status Prep: Preoxygenation Pretreated with: Other (Etomidate) Medicated with: Other (Rocuronium) Intubation Approach: Orotracheal Intubation size: cm (8) Informed consent obtained: Yes Risks/benefits/alt described: Yes Notes I was made aware of the patient's worsening mental status and difficulty breathing. Discussed with admitting hospitalist who requested intubation and central line placement. ANTONIO GARIBAY MD Feb 25, 2025 20:40
[2025-02-25 21:24] LABS: Base Excess -15.7 mmol/L (-2.0-3.0)
[2025-02-25] MEDS: fentaNYL Drip 2500mCg/250mlNS 250 ML IV SCH (21:30)
[2025-02-25] MEDS: NOREPINEPHRINE 8 MG/250ML KIT 250 ML IV SCH (21:30)
[2025-02-25] MEDS: ETOMIDATE (2MG/ML) 20ML VIAL IV ONE (21:52)
[2025-02-25] MEDS: ROCURONIUM 10MG/ML 10ML VIAL IV ONE (21:53)
--- NOTE | 2025-02-25 21:59 | DVH ---
CHEST RADIOGRAPH Indication: LINE TUBE PLACEMENT VERIFICATION Technique: Single frontal view of the chest was obtained Comparison: XY CHEST XRAY 1 VIEW on DOS: 02/25/25, XY CHEST PORTABLE on DOS: 02/21/25, XY CHEST PORTABL E on DOS: 01/23/23 FINDINGS: Lines and Tubes: Endotracheal tube is 6.4 cm above the ivan. Enteric tube below the left diaphragm in the stomach. Lungs: An infiltrate in the right upper and right lower lobe with prominent bronchovascular markings in the perihilar regions bilaterally. Airspace disease is noted in the left lower lobe. Pleura: No effusion. No pneumothorax. Cardiomediastinal contours: Cardiomegaly is noted Bones: No acute osseous abnormality. IMPRESSION: 1. Endotracheal tube in place 6.4 cm above the ivan 2. Enteric tube below the diaphragm in the stomach. 3. Cardiopulmonary findings most likely secondary to congestive failure
[2025-02-25] MEDS: MIDAZOLAM DRIP 50 mg/50mL 50 ML IV SCH (22:01)
[2025-02-25] MEDS: PROPOFOL 100 ML IV SCH (22:01)
[2025-02-26] VITALS (111 sets, daily range): BP systolic 93–127; BP diastolic 58–83; PULSE 101–131; RESP 13–31; TEMP 96.6–100.8; O2SAT 84–100
[2025-02-26] MEDS: SODIUM BICARB 8.4% 50Meq/50ml SYR Vial IV ONE ×2 (00:15)
[2025-02-26] MEDS: FUROSEMIDE 100 MG/10ML VIAL IV ONE (00:16)
[2025-02-26] MEDS: SODIUM BICARB 50mEq/50ml Vial 100 ML in SOD CHL 0.45% 1,000 ML IV ONE (00:17)
[2025-02-26 02:00] LABS: Base Excess -8.4 mmol/L (-2.0-3.0)
[2025-02-26 02:02] LABS: Hematocrit 29.3 % (41.0-53.0); Hemoglobin 10.4 g/dL (13.5-17.5); Mean Corpuscular Hemoglobin 31.4 pg (28.0-32.0); Mean Corpuscular Volume 88.4 fL (80.0-100.0); Nucleated Red Blood Cells % 0.0 %
[2025-02-26 02:15] LABS: Alanine Aminotransferase 15 U/L (7-40); Alkaline Phosphatase 55 U/L (46-116); Anion Gap 13 (5-15); BUN/Creatinine Ratio 10.7 (10.0-20.0); Chloride 105 mmol/L (98-107); Sodium 137 mmol/L (136-145); Total Protein 5.8 g/dL (5.7-8.2)
[2025-02-26 02:16] LABS: Albumin 3.7 g/dL (3.2-4.8)
[2025-02-26 02:18] LABS: Bilirubin, Total 1.4 mg/dL (0.2-1.0); Blood Urea Nitrogen 69 mg/dL (9-23); Calcium 8.5 mg/dL (8.7-10.4); Carbon Dioxide 19 mmol/L (20-31); Glucose 155 mg/dL (74-106); Potassium 5.4 mmol/L (3.5-5.1)
[2025-02-26 03:26] LABS: Lactic Acid w/Reflex 2.8 mmol/L (0.4-2.0)
[2025-02-26] MEDS ORDERED: VANCOMYCIN PER PHARMACY 0 MG IV SCH (03:45)
[2025-02-26 03:49] LABS: Urine Amorphous Crystal FEW /hpf (None Seen); Urine Protein, UAD 1+ (Negative)
[2025-02-26] MEDS: SODIUM ZIRCONIUM CYCL 10 GM PAK GT ONE (05:01)
[2025-02-26] MEDS: VANCOMYCIN 1GM/200ML PM 200 ML IV ONE (05:02)
[2025-02-26] MEDS: PIPERACILLIN-TAZOB 3.375GM 100 ML IV SCH ×2 (05:02→21:28)
[2025-02-26 07:41] LABS: Base Excess -10.2 mmol/L (-2.0-3.0)
--- NOTE | 2025-02-26 08:19 | DVH ---
CHEST RADIOGRAPH Indication: intubated Technique: Single frontal view of the chest was obtained Comparison: XY CHEST XRAY 1 VIEW on DOS: 02/25/25, XY CHEST XRAY 1 VIEW on DOS: 02/25/25, XY CHEST PORT ABLE on DOS: 02/21/25, XY CHEST PORTABLE on DOS: 01/23/23, CHEST PORTABLE on DOS: 03/14/21, XY CHEST XRAY 1 VIEW on DOS: 02/25/25 FINDINGS: Lines and Tubes: Endotracheal tube is 6.4 cm above the ivan. Enteric tube below the left diaphragm in the stomach. Lungs: An infiltrate in the right upper and right lower lobe with prominent bronchovascular markings in the perihilar regions bilaterally. Airspace disease is noted in the left lower lobe. Pleura: No effusion. No pneumothorax. Cardiomediastinal contours: Cardiomegaly is noted Bones: No acute osseous abnormality. IMPRESSION: No interval change.
[2025-02-26 10:19] LABS: Base Excess -9.1 mmol/L (-2.0-3.0)
[2025-02-26 13:27] LABS: Anion Gap 11 (5-15); Carbon Dioxide 22 mmol/L (20-31); Chloride 103 mmol/L (98-107)
[2025-02-26 13:28] LABS: Calcium 8.8 mg/dL (8.7-10.4)
[2025-02-26 13:29] LABS: Sodium 136 mmol/L (136-145)
[2025-02-26 13:32] LABS: Potassium 6.4 mmol/L (3.5-5.1)
[2025-02-26 13:33] LABS: BUN/Creatinine Ratio 11.1 (10.0-20.0); Blood Urea Nitrogen 78 mg/dL (9-23); Glucose 137 mg/dL (74-106)
[2025-02-26] MEDS: IPRATROPIUM BROM 0.5 MG/2.5ML INH SOL NEB SCH (14:23)
[2025-02-26] MEDS: ALBUTEROL SULF 2.5 MG/0.5ML(0.5%) NEB SOLN NEB SCH (14:24)
--- NOTE | 2025-02-26 14:27 | DVHPN2 ---
Progress Note - Dictate Date Seen: Feb 26, 2025 Medical Necessity Reason Pt with a Central, PICC or Fol: No Subjective No new complaints vital signs Vital Sign Date Time Temp Pulse Resp B/P (MAP) Pulse Ox O2 Delivery O2 Flow Rate FiO2 02/26/25 13:39 102 02/26/25 13:38 100 02/26/25 13:38 22 94 Mechanical Ventilator+ 02/26/25 13:30 97.9 98/67 (77) 208.2 02/25/25 20:00 30 Total Intake and Output 02/25/25 02/25/25 02/26/25 15:00 23:00 07:00 Intake Total 236.68 ml 871.42 ml Output Total 700 ml 150 ml 150 ml Balance -700 ml 86.68 ml 721.42 ml medications Current Medications Medications Dose Ordered Sig/Shayan Route Start Time Stop Time Status Last Admin Dose Admin Aspirin 81 mg DAILY PO 02/22/25 10:00 02/26/25 08:37 81 MG Levothyroxine Sodium 50 mcg QAM@0600 PO 02/22/25 06:00 02/26/25 05:35 50 MCG Clonidine HCl 0.1 mg Q4HP PRN PO 02/21/25 22:30 Sodium Chloride 10 ml Q8HR IV 02/22/25 06:00 02/26/25 05:35 10 ML Ondansetron HCl 4 mg Q4HP PRN IV 02/21/25 22:30 02/25/25 09:54 4 MG Docusate Sodium 100 mg BIDPRN PRN PO 02/21/25 22:30 Ibuprofen 600 mg Q6HP PRN PO 02/21/25 22:30 02/26/25 05:01 600 MG Famotidine 20 mg DAILY IV 02/22/25 10:00 02/26/25 08:37 20 MG Nitroglycerin 0.4 mg Q5MINP PRN SL 02/21/25 23:15 Diphenhydramine HCl 25 mg Q4HP PRN IV 02/22/25 01:00 02/25/25 18:08 25 MG Nicardipine/ Sodium Chloride 200 ml @ 50 mls/hr Q4H IV 02/22/25 06:00 02/25/25 07:21 100 MLS/HR Prazosin HCl 2 mg Q8HR PO 02/22/25 14:00 Hold Atorvastatin Calcium 20 mg HS PO 02/22/25 22:00 Hydromorphone HCl 1 mg Q6HPRN PRN PO 02/23/25 12:45 02/25/25 09:53 1 MG Nifedipine 30 mg TID PO 02/24/25 19:15 02/25/25 14:05 30 MG Lorazepam 1 mg Q3HP PRN IV 02/25/25 10:30 02/25/25 17:02 1 MG Propofol 100 ml @ 2.34 mls/hr Q24H IV 02/25/25 21:30 02/26/25 12:47 11.7 MLS/HR Midazolam HCl 50 ml @ 1 mls/hr Q24H IV 02/25/25 21:30 02/26/25 12:47 5 MLS/HR Fentanyl Citrate 250 ml @ 2.5 mls/hr Q24H IV 02/25/25 21:30 Norepinephrine Bitartrate 250 ml @ 3.75 mls/hr Q24H IV 02/25/25 21:30 Piperacillin Sod/ Tazobactam Sod 100 ml @ 25 mls/hr Q12HR IV 02/26/25 03:45 02/26/25 08:37 25 MLS/HR Vancomycin HCl 0 ml @ 0 mls/hr UD IV 02/26/25 03:45 Albuterol 2.5 mg Q4HR NEB 02/26/25 14:00 Ipratropium Nelson 0.5 mg Q4HR NEB 02/26/25 14:00 Hydrocortisone Sodium Succinate 50 mg Q12HR IV 02/26/25 22:00 objective Gen: NAD, AAOx3 HEENT: NC, AT Lungs: CTA b/l Cardiac:RRR, no murmur Abd: soft, no tenderness Ext: no edema Neuro: no focal deficits laboratory and microbiology Laboratory Tests 02/26/25 13:00 02/26/25 01:44 Test 02/26/25 13:00 Range/Units Serum Glucose 137 H 74-106 mg/dL Problem List CHANDRA secondary to hypertensive crisis end organ damage CKD stage 4 is baseline HTN emergency, patient has refused oral anti hypertensives due to multiple "allergies" and side effects Multiple cardiology and neph[place] [facility] [facility], etc have not helped him because he "cannot take any anti hypertensives orally" He was offered nephrectomy and HD at [facility] [place] but declined I sent him for renal denervation and or osmar-receptor stimulation therapy but he could not get access to this Acute hypoxic respiratory failure on supplemental oxygen Acute pulmonary edema elevated troponin, r/o NSTEMI h/o carotid artery stenosis s/p stent h/o TIA Hypothyroidism PTSD Plan: Medical treatment of hyperkalemia has been ordered He needs to start HD PERRY given rapidly deteriorating renal function and worsening hyperkalemia, remains to be seen if he will tolerate HD Nicardipine drip and clonidine patch TTS 3 Daily BMP Strict I&Os Prognosis is guarded Plan discussed with: Other (RN) CLAIRE JAMES MD Feb 26, 2025 14:27
--- NOTE | 2025-02-26 14:37 | DVHINCON2 ---
Date of service: Feb 26, 2025 Referring Physician Arielle Hahn Np Reason for Consultation Acute respiratory failure History of Present Illness History Source: Patient, RN Notes, MD Notes Exam Limitations: Clinical condition HPI Patient is a 54-year old gentleman with a history of multiple allergies and CKD who presented with chest tightness and shortness of breath. Was seen in the emergency room where he was found to be hypertensive and was started on a Nicardipine drip. During admission, he developed respiratory failure and required intubated by the emergency room provider. Pulmonology was consulted to assist in management. Home Meds Active Scripts Isosorbide Dinitrate (Isosorbide Dinitrate) 10 Mg Tab, 20 MG PO TID@06,12,18, #90 TAB Prov:HODA JAIN MD 04/22/20 Hydralazine HCl (Hydralazine HCl) 25 Mg Tab, 25 MG PO Q6HR, #120 TAB Prov:HODA JAIN MD 04/22/20 Reported Medications Levothyroxine Sodium (SYNTHROID TABLET) 50 Mcg Tb, 1 TAB PO DAILY, #30 TAB 5 Refills 03/14/21 Omeprazole (Gnp Omeprazole) 20 Mg Tab, 40 MG PO, TAB 03/14/21 Hydroxyzine Hcl (Hydroxyzine Hcl) 25 Mg Tab, 25 MG PO for 30 Days, MG 03/14/21 Potassium Chloride (Klor-Con 8) 8 Meq Tab, 8 MEQ PO, TAB 03/14/21 Furosemide (Furosemide) 40 Mg Tab, 40 MG PO DAILY for 30 Days 03/14/21 Nifedipine (Nifedipine Er) 90 Mg Tab, 1 TAB PO DAILY, #30 TAB 5 Refills 03/14/21 Labetalol Hcl (Labetalol Hcl) 300 Mg Tab, 300 MG PO for 30 Days, MG 03/14/21 Oxycodone W/ Acetaminophen (Percocet 5/325MG) 1 Tab Tb, 1 TAB PO QID, #120 TAB 03/14/21 Aspirin (Aspir-Low) 81 Mg Tab, 81 MG PO DAILY for 30 Days, MG 04/19/20 Past Medical History Cardiac: No pertinent Hx Pulmonary: No pertinent Hx Central Nervous System: No pertinent Hx GI: No pertinent Hx Hemotology/Oncology: No pertinent Hx Hepatobiliary: No pertinent Hx Psychiatric: No pertinent Hx Musculoskeletal: No pertinent Hx Rheumotologic: No pertinent Hx Infectious Disease: No peritnent Hx ENT: No pertinent Hx Renal/: CKD Endocrine: No pertinent Hx Dermatology: No pertinent Hx Past Surgical History: No pertinent Hx Family History: Cancer Patient Family History: Cancer G8 BROTHER FH: brain tumor 19 CHILD FH: breast cancer G8 MOTHER FH: lung cancer G8 FATHER Kidney stones G8 FATHER Seizure disorder (situation) 19 CHILD Smoker: No Hx (Negative) Alocohol: None Drugs: None Lives with: With family Domestic Violence: Neg Review of Systems Constitutional: No symptom reported Ears, Nose, & Throat: No symptom reported Eyes: No symptom reported Pulmonary/Respiratory: Dyspnea Cardiovascular: Chest Pain Gastrointestinal: No symptom reported Genitourinary: No symptom reported Musculoskeletal: No symptom reported Skin: No symptom reported Psychiatric: No symptom reported Endocrine: No symptom reported Hemotologic/Lymphatic: No symptom reported H&P Exam Vital Signs Vital Signs Date Time Temp Pulse Resp B/P (MAP) Pulse Ox O2 Delivery O2 Flow Rate FiO2 02/26/25 13:39 102 02/26/25 13:38 100 02/26/25 13:38 22 94 Mechanical Ventilator+ 02/26/25 13:30 97.9 98/67 (77) 208.2 02/25/25 20:00 30 General Appeara: Well developed, Well nourished, Normal Appearance Head Exam: Normal inspection Neck Exam: Normal inspection, Non-tender, Normal alignment Eye Exam: bilateral eye Normal inspection, bilateral eye PERRL, bilateral eye EOMI Ear Exam: bilateral ear Auricle normal, bilateral ear Canal normal, bilateral ear TM normal Nasal Exam: Normal inspection Mouth: Normal Inspection Pulmonary/Respiratory: Decreased breath sounds Cardiovascular/Chest: Normal inspection Peripheral Pulses: 4+ Radial (R), 4+ Radial (L), 4+ Brachial (R), 4+ Brachial (L) Abdominal Exam: Normal bowel sounds Labs/Xrays Labs Test 02/26/25 13:00 02/26/25 10:07 02/26/25 03:50 02/26/25 02:00 Range/Units Sodium Level 136 136-145 mmol/L Potassium Level 6.4 *H 3.5-5.1 mmol/L Chloride Level 103 98-107 mmol/L Carbon Dioxide Level 22 20-31 mmol/L Anion Gap 11 5-15 Blood Urea Nitrogen 78 H 9-23 mg/dL Creatinine 7.04 H 0.700-1.30 mg/dL Glomerular Filtration Rate Calc 9 >90 mL/min BUN/Creatinine Ratio 11.1 10.0-20.0 Serum Glucose 137 H 74-106 mg/dL Calcium Level 8.8 8.7-10.4 mg/dL Blood Gas Specimen Type Arterial Blood Gas Sample Site Right radial Blood Gas Patient Temperature 37.0 Arterial Blood Date Drawn [id number] Arterial Blood pH 7.218 *L 7.350-7.450 Arterial Blood Partial Pressure CO2 46.0 35.0-48.0 mmHg Arterial Blood Partial Pressure O2 51.7 *L 83.0-108.0 mmHg Arterial Blood HCO3 18.3 L 21.0-28.0 mmol/L Arterial Blood Oxygen Saturation 84.2 *L 94.0-98.0 % Arterial Blood Base Excess -9.1 L -2.0-3.0 mmol/L Arterial Blood Oxyhemoglobin 83.4 L 94.0-98.0 % Arterial Blood Carboxyhemoglobin 0.3 L 0.5-1.5 % Arterial Blood Methemoglobin 0.6 0.0-1.5 % Leon Test Modified Blood Gas Total Hemoglobin 11.20 L 13.5-17.5 g/dL Blood Gas Set Respiration Rate 22.0 Blood Gas Modality Vent - ac FiO2 % 100.0 Blood Gas Tidal Volume 500.0 Blood Gas PEEP or CPAP 10.0 Blood Gas Critical Value Read Back Yes Blood Gas Notified Whom jeferson Bull Blood Gas Notified Time [id number] Blood Gas Notified By Profile Stitching Machine Operator shannon martin Lactic Acid Level 1.4 0.4-2.0 mmol/L Urine Color Light-yellow Yellow Urine Clarity Turbid H Clear Urine pH 5.0 5.0-9.0 Urine Specific [place] 1.011 1.001-1.035 Urine Protein 1+ H Negative Urine Ketones Negative Negative Urine Blood Trace H Negative /uL Urine Nitrite Negative Negative Urine Bilirubin Negative Negative Urine Urobilinogen Normal Negative mg/dL Urine Leukocyte Esterase Negative Negative /uL Urine RBC 1 0 - 3 /hpf Urine Microscopic WBC 4 H 0-3 /HPF Urine Squamous Epithelial Cells Few <5 /hpf Urine Amorphous Crystals Few None Seen /hpf Urine Bacteria Few H None Seen /hpf Urine Glucose Normal Normal mg/dL Test 02/26/25 01:44 02/25/25 16:58 02/25/25 15:08 02/25/25 03:26 Range/Units White Blood Count 20.1 #H 4.4-10.8 10^3/uL Red Blood Count 3.31 L 4.5-5.90 10^6/uL Hemoglobin 10.4 L 13.5-17.5 g/dL Hematocrit 29.3 L 41.0-53.0 % Mean Corpuscular Volume 88.4 # 80.0-100.0 fL Mean Corpuscular Hemoglobin 31.4 28.0-32.0 pg Mean Corpuscular Hemoglobin Concent 35.5 32.0-36.0 g/dL Red Cell Distribution Width 13.8 11.8-14.3 % Platelet Count 334 # 140-450 10^3/uL Mean Platelet Volume 7.2 6.9-10.8 fL Neutrophils (%) (Auto) 95.0 H 37.0-80.0 % Lymphocytes (%) (Auto) 1.5 L 10.0-50.0 % Monocytes (%) (Auto) 3.3 0.0-12.0 % Eosinophils (%) (Auto) 0.0 0.0-7.0 % Basophils (%) (Auto) 0.2 0.0-2.0 % Neutrophils # (Auto) 19.1 H 1.6-8.6 10 ^3/uL Lymphocytes # (Auto) 0.3 L 0.4-5.4 10 ^3/uL Monocytes # (Auto) 0.7 0-1.3 10 ^3/uL Eosinophils # (Auto) 0 0-0.8 10 ^3/uL Basophils # (Auto) 0 0-0.2 10 ^3/uL Nucleated Red Blood Cells 0.0 % Total Bilirubin 1.4 H 0.2-1.0 mg/dL Aspartate Amino Transferase (AST) 17 13-40 U/L Alanine Aminotransferase (ALT) 15 7-40 U/L Alkaline Phosphatase 55 46-116 U/L Lactate Dehydrogenase 319 H 120-246 U/L Total Protein 5.8 5.7-8.2 g/dL Albumin 3.7 3.2-4.8 g/dL POC Glucose 149 H 70-106 mg/dl Blood Gas Liter Flow 10.00 Magnesium Level 2.1 1.6-2.6 mg/dL Test 02/23/25 08:03 02/22/25 14:47 02/22/25 10:12 02/22/25 02:53 Range/Units Cortisol AM Sample 22.53 H 5.27-22.45 ug/dL Troponin I High Sensitivity 5273 *H </=54 ng/L Cortisol PM Sample 15.22 3.44-16.76 ug/dL Hemoglobin A1c 4.3 <5.7 % A1C Triglycerides Level 249 H < 150 mg/dL Cholesterol Level 177 < 200 mg/dL LDL Cholesterol 96 < 100 mg/dL HDL Cholesterol 30 L 40-59 mg/dL Test 02/21/25 19:48 02/21/25 18:43 Range/Units Thyroid Stimulating Hormone (TSH) 4.89 H 0.55-4.78 uIU/mL Prothrombin Time 10.7 9.3-11.8 sec Prothrombin Time INR 1.01 0.9-1.15 Activated Partial Thromboplast Time 28.9 24.5-34.5 SEC Microbiology Date/Time Source Procedure Growth Status 02/25/25 20:15 Trachea Gram Stain Pending Resulted 02/25/25 20:15 Trachea Respiratory Culture - Preliminary Resulted Assessment/Plan Plan Impression Acute hypoxemic respiratory failure Fluid overload Pneumonia Atelectasis Patient seen and examined in the ER Events On mechanical ventilation S/p intubation initial settings ac volume control RR 20, tidal volume 500, PEEP 5, FiO2 100% Bronchoscopy was performed for pulmonary toilet See separate note for procedure in detail Labs and imaging reviewed Chest x-ray shows bilateral opacities consistent with pneumonia ABG reviewed Management Vent support Titrate to maintain sats 90% or above Sedation for vent synchrony Antibiotics Bronchodilators Recommend diuresis Monitor renal function F/u nephrology Management deferred Monitor electrolytes Supplement as needed Pressors as needed for hemodynamic support To maintain a mean arterial pressure of 65 mmHg Spoke with patient's over the phone Updated on status and agreed with plan of care DVT prophylaxis Critical care time 35 minutes Plan discussed with: Other (Rn) GERMÁN TORRES MD Feb 26, 2025 14:37
--- NOTE | 2025-02-26 14:38 | DVHNC2 ---
Procedure - Procedure- Bronchoscopy and bronchial washings Indication- Pulmonary toilet Procedure in detail Consent was obtained and timeout performed per protocol. The patient was placed on 100% FiO2. Olympus bronchoscope was used and passed through the endotracheal tube, tracheobronchial tree was examined. There were moderate nonpurulent secre tions in the airways primarily that were loosened up with approximately 50 cc of normal saline and thoroughly suctioned into a separate specimen container. There were no endobronchial lesions however, mucosa appeared inflamed and easily friable. After the procedure, the scope was removed. Patient tolerated the procedure well. GERMÁN TORRES MD Feb 26, 2025 14:38
[2025-02-26] MEDS: InsuLIN REG 1unit/0.01ml Soln (100units/ml) IV ONE (14:48)
[2025-02-26] MEDS: DEXTROSE (50%) 50ML SYRG IV ONE (14:48)
[2025-02-26] MEDS: SODIUM BICARB 50mEq/50ml Vial 100 ML in SOD CHL 0.45% 1,000 ML IV SCH (14:57)
[2025-02-26] MEDS: CALCIUM GLUC 1,000mg/50ml-NS 50 ML IV ONE (15:00)
[2025-02-26] MEDS ORDERED: PIPERACILLIN-TAZOB 2.25GM 50 ML IV SCH (15:00)
[2025-02-26] MEDS: HEPARIN 1,000 UNITS/ml 1ML VIAL IV ONE (15:23)
--- NOTE | 2025-02-26 15:37 | DVHNC2 ---
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: Attending Physician Indication: Hypotension, CVP monitoring Room prepared for procedure: Yes Wine Fermenter performed hand hygien: Yes Maximal sterile barrier precau: Mask/Eye shield, Sterile gown Skin Preparation: Chlorhexidine gluconate, Providine iodine Skin preparation completely dr: Yes Insertion site: Right, Internal jugular Central line catheter type: Dialysis non-tunneled Number of lumens: 2 Antiseptic ointment applied to: Yes Post Assessment: Chest X-Ray Date of Service: Feb 26, 2025 Billing Provider: DANIELA DE LOS SANTOS MD Common Visit Codes: 12623-YBNHIXS INP/OBS CARE (HIGH) Secondary Visit Codes: [id number] STANDBY SERVICE Consultation Codes: 42801-[id number] CONSULT <45MIN Procedure Codes: 57935-JLLTPH NON-TUNNEL CV CATH DANIELA DE LOS SANTOS MD Feb 26, 2025 15:37
--- NOTE | 2025-02-26 16:09 | DVH ---
CHEST RADIOGRAPH Indication: dialysis catheter placement Technique: Single frontal view of the chest was obtained Comparison: XY CHEST XRAY 1 VIEW on DOS: 02/26/25, XY CHEST XRAY 1 VIEW on DOS: 02/25/25, XY CHEST XRAY 1 VIEW on DOS: 02/25/25 FINDINGS: Lines and Tubes: 4 cm above the ivan. Right internal jugular catheter in place in the superior martinez a cava Lungs: Right perihilar, and right upper lobe airspace disease. Can not exclude mass. Does not change recommend CT of the chest for further evaluation. Pleura: No effusion. No pneumothorax. Cardiomediastinal contours: Unremarkable Bones: No acute osseous abnormality. IMPRESSION: 1. Endotracheal tube in place 4 cm above the ivan 2. Right internal jugular catheter in place. 3. Right perihilar right upper lobe airspace disease. Does not improved recommend CT of the chest wit h contrast to exclude neoplasm.
[2025-02-26] MEDS: BUMETANIDE 2.5mg/10ml (0.25 mg/ml) INJ IV SCH (18:52)
--- NOTE | 2025-02-26 20:07 | DVHPN2 ---
Subjective Got intubated last night after hypoxic respiratory failure Reviewed: Care Plan, H&P, Labs, Medications, Previous Orders, Radiology Changes from previous H/P or p: No Changes Eyes: No Pain, No Vision change, No Conjunctivae inflammation, No Eyelid inflammation, No Other, No Redness ENT: No Ear pain, No Ear discharge, No Nose pain, No Nose discharge, No Nose congestion, No Mouth pain, No Mouth swelling, No Throat pain, No Throat swelling, No Other Cardiovascular: Chest Pain; No Palpitations, No Orthopnea, No Paroxysmal Noc. Dyspnea, No Edema, No Lt Headedness; Other (Hypertension) Respiratory: No Cough, No Dry, No Shortness of breath, No SOB with excertion, No Wheezing, No Hemoptysis, No Pleuritic Pain, No Sputum, No Other Gastrointestinal: No Nausea, No Vomiting, No Abdominal Pain, No Diarrhea, No Constipation, No Melena, No Hematochezia, No Other Genitourinary: No Dysuria, No Frequency, No Incontinence, No Hematuria, No Retention, No Other Musculoskeletal: No other; neck pain; No shoulder pain, No arm pain, No back pain, No hand pain, No leg pain, No foot pain Skin: No Rash, No Lesions, No Jaundice, No Bruising, No Other Objective Vitals Vital Signs Date Time Temp Pulse Resp B/P (MAP) Pulse Ox O2 Delivery O2 Flow Rate FiO2 02/26/25 19:00 109 22 105/69 (81) 100 02/26/25 18:17 100 02/26/25 18:00 97.5 207.5 02/26/25 17:56 Mechanical Ventilator+ 02/25/25 20:00 30 Intake/Output Intake and Output 02/26/25 07:00 Intake Total 1108.10 ml Output Total 1000 ml Balance 108.10 ml Intake Oral 280 ml IV Total 828.10 ml Output Urine Total 1000 ml General Appearance: Other (intubated and sedated) HEENT: Atraumatic, PERRLA, EOMI, Mucous membr. moist/pink Neck: Supple Lungs: Other (decreased sounds) Cardiovascular: Regular rate, Normal S1, Normal S2 Abdomen: Normal bowel sounds, Soft, No tenderness Extremities: Normal pulses Psych/Mental Status: Mental status NL Medications Current Medications Medications Dose Ordered Sig/Shayan Route Start Time Stop Time Status Last Admin Dose Admin Aspirin 81 mg DAILY PO 02/22/25 10:00 02/26/25 08:37 81 MG Levothyroxine Sodium 50 mcg QAM@0600 PO 02/22/25 06:00 02/26/25 05:35 50 MCG Clonidine HCl 0.1 mg Q4HP PRN PO 02/21/25 22:30 Sodium Chloride 10 ml Q8HR IV 02/22/25 06:00 02/26/25 05:35 10 ML Ondansetron HCl 4 mg Q4HP PRN IV 02/21/25 22:30 02/25/25 09:54 4 MG Docusate Sodium 100 mg BIDPRN PRN PO 02/21/25 22:30 Ibuprofen 600 mg Q6HP PRN PO 02/21/25 22:30 02/26/25 05:01 600 MG Famotidine 20 mg DAILY IV 02/22/25 10:00 02/26/25 08:37 20 MG Nitroglycerin 0.4 mg Q5MINP PRN SL 02/21/25 23:15 Diphenhydramine HCl 25 mg Q4HP PRN IV 02/22/25 01:00 02/25/25 18:08 25 MG Nicardipine/ Sodium Chloride 200 ml @ 50 mls/hr Q4H IV 02/22/25 06:00 02/25/25 07:21 100 MLS/HR Prazosin HCl 2 mg Q8HR PO 02/22/25 14:00 Hold Atorvastatin Calcium 20 mg HS PO 02/22/25 22:00 Hydromorphone HCl 1 mg Q6HPRN PRN PO 02/23/25 12:45 02/25/25 09:53 1 MG Nifedipine 30 mg TID PO 02/24/25 19:15 02/25/25 14:05 30 MG Lorazepam 1 mg Q3HP PRN IV 02/25/25 10:30 02/25/25 17:02 1 MG Propofol 100 ml @ 2.34 mls/hr Q24H IV 02/25/25 21:30 02/26/25 12:47 11.7 MLS/HR Midazolam HCl 50 ml @ 1 mls/hr Q24H IV 02/25/25 21:30 02/26/25 12:47 5 MLS/HR Fentanyl Citrate 250 ml @ 2.5 mls/hr Q24H IV 02/25/25 21:30 Norepinephrine Bitartrate 250 ml @ 3.75 mls/hr Q24H IV 02/25/25 21:30 Vancomycin HCl 0 ml @ 0 mls/hr UD IV 02/26/25 03:45 Albuterol 2.5 mg Q4HR NEB 02/26/25 14:00 02/26/25 18:33 2.5 MG Ipratropium [place] 0.5 mg Q4HR NEB 02/26/25 14:00 02/26/25 18:33 0.5 MG Hydrocortisone Sodium Succinate 50 mg Q12HR IV 02/26/25 22:00 Sodium Bicarbonate 100 ml/Sodium Chloride 1,100 ml @ 75 mls/hr [id number] IV 02/26/25 14:45 02/26/25 14:57 75 MLS/HR Piperacillin Sod/ Tazobactam Sod 100 ml @ 25 mls/hr Q12HR IV 02/26/25 22:00 Bumetanide 3 mg Q8HR IV 02/26/25 18:42 02/26/25 18:52 3 MG Laboratory Results Laboratory Tests 02/26/25 01:44 02/26/25 13:00 Chemistry Test 02/26/25 01:44 02/26/25 13:00 Albumin 3.7 g/dL (3.2-4.8) Calcium Level 8.5 mg/dL (8.7-10.4) L 8.8 mg/dL (8.7-10.4) Total Protein 5.8 g/dL (5.7-8.2) LFT Test 02/26/25 01:44 Alanine Aminotransferase (ALT) 15 U/L (7-40) Alkaline Phosphatase 55 U/L (46-116) Aspartate Amino Transferase (AST) 17 U/L (13-40) Total Bilirubin 1.4 mg/dL (0.2-1.0) H Urinalysis Test 02/26/25 02:00 Urine Color Light-yellow (Yellow) Urine Clarity Turbid (Clear) H Urine pH 5.0 (5.0-9.0) Urine Specific [place] 1.011 (1.001-1.035) Urine Protein 1+ (Negative) H Urine Ketones Negative (Negative) Urine Blood Trace /uL (Negative) H Urine Nitrite Negative (Negative) Urine Bilirubin Negative (Negative) Urine Urobilinogen Normal mg/dL (Negative) Urine Leukocyte Esterase Negative /uL (Negative) Urine RBC 1 /hpf (0 - 3) Urine Microscopic WBC 4 /HPF (0-3) H Urine Squamous Epithelial Cells Few /hpf (<5) Urine Amorphous Crystals Few /hpf (None Seen) Urine Bacteria Few /hpf (None Seen) H Urine Glucose Normal mg/dL (Normal) Blood Gas Results Test 02/25/25 21:12 02/26/25 01:31 02/26/25 07:34 02/26/25 10:07 Arterial Blood pH 7.105 (7.350-7.450) 7.267 (7.350-7.450) 7.233 (7.350-7.450) 7.218 (7.350-7.450) FiO2 % 100.0 60.0 100.0 100.0 Microbiology Microbiology Date/Time Source Procedure Growth Status 02/25/25 20:15 Trachea Gram Stain Pending Resulted 02/25/25 20:15 Trachea Respiratory Culture - Preliminary Resulted Assessment/Plan Assessment/Plan Hypertensive emergency Acute on chronic renal failure Generalized weakness Chest pain, rule out acute myocardial infarction Acute hypoxic respiratory failure acute pulmonary edema Hyperkalemia Continue vent management per wheat inspector Appreciate dial brusher's and nephrology input Continuing morphine p.r.n. for pain. We will monitor kidney function Creat baseline around 2-3 >5.9>7 Discussed with nurse, per nephrology needs HD and wilber catheter Hyperkalemia protocol Critical care time 57 minutes Plan discussed with: Patient My Orders Orders - BJORN CRUZ MD Procedure Category Date Status Time Sod Chl 0.45% PHA 02/26/25 In Process (Sodi... W/Sodium 14:45 Apply Z-Guard CEDRIC 02/26/25 In Process 13:30 * Wound Consult CONS 02/26/25 Transmitted Complete Blood Count LAB 02/27/25 Verified 04:00 Comprehensive LAB 02/27/25 Verified Metabolic Panel 04:00 Magnesium LAB 02/27/25 Verified 04:00 Chest Portable XY 02/27/25 Logged 04:00 Phosphorus LAB 02/27/25 Verified 04:00 Date of Service: Feb 26, 2025 Billing Provider: BJORN CRUZ MD Common Visit Codes: [id number] CARE 30-74 MIN BJORN CRUZ MD Feb 26, 2025 20:07
[2025-02-26] MEDS: HYDROCORTISONE SOD SUCC 100 MG/2ML INJ VIAL IV SCH (21:28)
[2025-02-27] VITALS (103 sets, daily range): BP systolic 101–152; BP diastolic 58–84; PULSE 110–128; RESP 18–24; TEMP 97.3–99.3; O2SAT 96–100
[2025-02-27 03:53] LABS: Hematocrit 24.8 % (41.0-53.0); Hemoglobin 8.6 g/dL (13.5-17.5); Mean Corpuscular Hemoglobin 31.2 pg (28.0-32.0); Mean Corpuscular Volume 90.1 fL (80.0-100.0)
[2025-02-27 04:06] LABS: Alanine Aminotransferase 20 U/L (7-40); Alkaline Phosphatase 47 U/L (46-116); Anion Gap 18 (5-15); BUN/Creatinine Ratio 12.0 (10.0-20.0); Magnesium 2.3 mg/dL (1.6-2.6); Potassium 4.5 mmol/L (3.5-5.1)
[2025-02-27 04:07] LABS: Bilirubin, Total 1.1 mg/dL (0.2-1.0)
[2025-02-27 04:23] LABS: Albumin 2.9 g/dL (3.2-4.8); Calcium 7.6 mg/dL (8.7-10.4); Carbon Dioxide 19 mmol/L (20-31); Chloride 96 mmol/L (98-107); Glucose 361 mg/dL (74-106); Sodium 133 mmol/L (136-145); Total Protein 4.8 g/dL (5.7-8.2)
[2025-02-27 04:24] LABS: Blood Urea Nitrogen 92 mg/dL (9-23)
[2025-02-27 05:19] LABS: Total Cells Counted 100.0 (100)
--- NOTE | 2025-02-27 05:58 | DVH ---
CHEST RADIOGRAPH Indication: intubated/ respiratory failure Technique: Single frontal view of the chest was obtained COMPARISON: XY CHEST PORTABLE on DOS: 02/26/25, XY CHEST XRAY 1 VIEW on DOS: 02/26/25, XY CHEST XRAY 1 VIEW on DOS: 02/25/25, XY CHEST XRAY 1 VIEW on DOS: 02/25/25, XY CHEST PORTABLE on DOS: 02/21/25 FINDINGS: Lines and Tubes: Unchanged. Lungs: Stable appearing multifocal bilateral pulmonary airspace disease with consolidative features. Pleura: No effusion. No pneumothorax. Cardiomediastinal contours: Unremarkable Bones: Unremarkable IMPRESSION: 1. Stable appearing multifocal bilateral pulmonary airspace disease with consolidative features. 2. Lines and tubes unchanged.
[2025-02-27 06:16] LABS: Base Excess -8.2 mmol/L (-2.0-3.0)
[2025-02-27] MEDS: SODIUM CHL 0.9% 1000 ML BAG XX ONE (08:33)
[2025-02-27] MEDS ORDERED: ALBUMIN 25% 50 ML IV PRN ×2 (08:45)
[2025-02-27] MEDS: ALBUMIN 25% 100 ML IV ONE (09:14)
[2025-02-27] MEDS ORDERED: ALBUMIN 25% 100 ML IV PRN ×2 (09:15→10:45)
[2025-02-27] MEDS: ALBUMIN 25% 0 ML IV ONE (09:21)
[2025-02-27] MEDS ORDERED: VANCOMYCIN PER PHARMACY 0 MG IV SCH (10:30)
[2025-02-27] MEDS ORDERED: DEXTROSE (50%) 50ML SYRG IV PRN (11:45)
[2025-02-27] MEDS: ACCU-CHEK COMFORT CURVE STRIP VI SCH (12:00)
[2025-02-27] MEDS: InsuLIN REG 1unit/0.01ml Soln (100units/ml) SC SCH (12:54)
[2025-02-27] MEDS: BUMETANIDE INJECTION 25 MG in GIVE UN-DILUTED 0 ML IV SCH (14:00)
--- NOTE | 2025-02-27 14:15 | DVHPN2 ---
Progress Note - Dictate Date Seen: Feb 27, 2025 Has the PT tested + for MRSA If YES, has PT been informed?: Yes Medical Necessity Reason Pt with a Central, PICC or Fol: No Subjective On mechanical ventilation vital signs Vital Sign Date Time Temp Pulse Resp B/P (MAP) Pulse Ox O2 Delivery O2 Flow Rate FiO2 02/27/25 13:14 125/70 02/27/25 12:00 120 22 100 70 02/27/25 07:00 99.0 99.0 02/27/25 05:58 Mechanical Ventilator+ 02/25/25 20:00 30 Total Intake and Output 02/26/25 02/26/25 02/27/25 15:00 23:00 07:00 Intake Total 833.6 ml 650.2 ml 770.30 ml Output Total 400 ml 100 ml Balance 833.6 ml 250.2 ml 670.30 ml medications Current Medications Medications Dose Ordered Sig/Shayan Route Start Time Stop Time Status Last Admin Dose Admin Aspirin 81 mg DAILY PO 02/22/25 10:00 02/27/25 11:01 81 MG Levothyroxine Sodium 50 mcg QAM@0600 PO 02/22/25 06:00 02/27/25 06:15 50 MCG Clonidine HCl 0.1 mg Q4HP PRN PO 02/21/25 22:30 Sodium Chloride 10 ml Q8HR IV 02/22/25 06:00 02/27/25 06:15 10 ML Ondansetron HCl 4 mg Q4HP PRN IV 02/21/25 22:30 02/25/25 09:54 4 MG Docusate Sodium 100 mg BIDPRN PRN PO 02/21/25 22:30 Ibuprofen 600 mg Q6HP PRN PO 02/21/25 22:30 02/26/25 05:01 600 MG Famotidine 20 mg DAILY IV 02/22/25 10:00 02/27/25 12:53 20 MG Nitroglycerin 0.4 mg Q5MINP PRN SL 02/21/25 23:15 Diphenhydramine HCl 25 mg Q4HP PRN IV 02/22/25 01:00 02/25/25 18:08 25 MG Nicardipine/ Sodium Chloride 200 ml @ 50 mls/hr Q4H IV 02/22/25 06:00 02/25/25 07:21 100 MLS/HR Prazosin HCl 2 mg Q8HR PO 02/22/25 14:00 Hold Atorvastatin Calcium 20 mg HS PO 02/22/25 22:00 02/26/25 21:28 20 MG Hydromorphone HCl 1 mg Q6HPRN PRN PO 02/23/25 12:45 02/25/25 09:53 1 MG Nifedipine 30 mg TID PO 02/24/25 19:15 02/25/25 14:05 30 MG Lorazepam 1 mg Q3HP PRN IV 02/25/25 10:30 02/25/25 17:02 1 MG Propofol 100 ml @ 2.34 mls/hr Q24H IV 02/25/25 21:30 02/27/25 13:14 16.38 MLS/HR Midazolam HCl 50 ml @ 1 mls/hr Q24H IV 02/25/25 21:30 02/27/25 08:00 6 MLS/HR Fentanyl Citrate 250 ml @ 2.5 mls/hr Q24H IV 02/25/25 21:30 Norepinephrine Bitartrate 250 ml @ 3.75 mls/hr Q24H IV 02/25/25 21:30 Albuterol 2.5 mg Q4HR NEB 02/26/25 14:00 02/27/25 10:11 2.5 MG Ipratropium [place] 0.5 mg Q4HR NEB 02/26/25 14:00 02/27/25 10:11 0.5 MG Hydrocortisone Sodium Succinate 50 mg Q12HR IV 02/26/25 22:00 02/27/25 12:52 50 MG Sodium Bicarbonate 100 ml/Sodium Chloride 1,100 ml @ 75 mls/hr [id number] IV 02/26/25 14:45 02/27/25 10:57 75 MLS/HR Piperacillin Sod/ Tazobactam Sod 100 ml @ 25 mls/hr Q12HR IV 02/26/25 22:00 02/27/25 12:49 25 MLS/HR Vancomycin HCl 0 ml @ 0 mls/hr UD IV 02/27/25 10:30 Albumin Human 100 ml @ 100 mls/hr PRN PRN IV 02/27/25 10:45 02/27/25 23:59 Heparin Sodium (Porcine) 5,000 units Q12HR SC 02/27/25 22:00 Diagnostic Test (Pha) 1 strip Q6HR 02/27/25 12:00 Insulin Human Regular Q6HR SC 02/27/25 12:00 Dextrose 50 ml UD PRN IV 02/27/25 11:45 Bumetanide 25 mg/ Miscellaneous 100 ml @ 8 mls/hr [id number] IV 02/27/25 14:00 UNV objective Sedated HEENT: NC, AT Lungs: Bilateral rales, on mechanical ventilation Cardiac:RRR, no murmur Abd: soft, no tenderness Ext: no edema Neuro: not examined laboratory and microbiology Laboratory Tests 02/27/25 03:00 Test 02/27/25 03:00 Range/Units Serum Glucose 361 #H 74-106 mg/dL Problem List Severev CHANDRA secondary to hypertensive crisis end organ damage CKD stage 4 is baseline HTN emergency, patient has historically refused oral anti hypertensives due to multiple "allergies" and side effects Multiple cardiology and nephrology evaluations at [facility], [facility], etc have not helped him because he "cannot take any anti hypertensives orally" He was offered nephrectomy and HD at [facility] recently but declined I sent him for renal denervation and or osmar-receptor stimulation therapy but he could not get access to this Acute hypoxic respiratory failure on supplemental oxygen Pneumonia Bacteremia gram positive cocci elevated troponin, r/o NSTEMI h/o carotid artery stenosis s/p stent h/o TIA Hypothyroidism PTSD Plan: Started HD today HD was done uneventfully Nicardipine drip and clonidine patch TTS 3 Start Bumex drip HD likely again on 02/28/25 Daily BMP Strict I&Os Prognosis is guarded Plan discussed with: Spouse CLAIRE JAMES MD Feb 27, 2025 14:15
[2025-02-27] MEDS: VANCOMYCIN 1GM/200ML PM 200 ML IV ONE (15:26)
--- NOTE | 2025-02-27 16:19 | DVHPN2 ---
Subjective He is in bed intubated and sedated Reviewed: Care Plan, H&P, Labs, Medications, Previous Orders, Radiology Changes from previous H/P or p: No Changes Eyes: No Pain, No Vision change, No Conjunctivae inflammation, No Eyelid inflammation, No Other, No Redness ENT: No Ear pain, No Ear discharge, No Nose pain, No Nose discharge, No Nose congestion, No Mouth pain, No Mouth swelling, No Throat pain, No Throat swelling, No Other Cardiovascular: Chest Pain; No Palpitations, No Orthopnea, No Paroxysmal Noc. Dyspnea, No Edema, No Lt Headedness; Other (Hypertension) Respiratory: No Cough, No Dry, No Shortness of breath, No SOB with excertion, No Wheezing, No Hemoptysis, No Pleuritic Pain, No Sputum, No Other Gastrointestinal: No Nausea, No Vomiting, No Abdominal Pain, No Diarrhea, No Constipation, No Melena, No Hematochezia, No Other Genitourinary: No Dysuria, No Frequency, No Incontinence, No Hematuria, No Retention, No Other Musculoskeletal: No other; neck pain; No shoulder pain, No arm pain, No back pain, No hand pain, No leg pain, No foot pain Skin: No Rash, No Lesions, No Jaundice, No Bruising, No Other Objective Vitals Vital Signs Date Time Temp Pulse Resp B/P (MAP) Pulse Ox O2 Delivery O2 Flow Rate FiO2 02/27/25 15:50 123 22 118/68 (85) 100 40 02/27/25 11:00 98.6 209.5 02/27/25 05:58 Mechanical Ventilator+ 02/25/25 20:00 30 Intake/Output Intake and Output 02/27/25 07:00 Intake Total 2254.10 ml Output Total 500 ml Balance 1754.10 ml Intake Oral 100 ml IV Total 2154.10 ml Output Urine Total 500 ml Stool Total 0 ml General Appearance: Other (intubated and sedated) HEENT: Atraumatic, PERRLA, EOMI, Mucous membr. moist/pink Neck: Supple Lungs: Other (decreased sounds) Cardiovascular: Regular rate, Normal S1, Normal S2 Abdomen: Normal bowel sounds, Soft, No tenderness Extremities: Normal pulses Psych/Mental Status: Mental status NL Medications Current Medications Medications Dose Ordered Sig/Shayan Route Start Time Stop Time Status Last Admin Dose Admin Aspirin 81 mg DAILY PO 02/22/25 10:00 02/27/25 11:01 81 MG Levothyroxine Sodium 50 mcg QAM@0600 PO 02/22/25 06:00 02/27/25 06:15 50 MCG Clonidine HCl 0.1 mg Q4HP PRN PO 02/21/25 22:30 Sodium Chloride 10 ml Q8HR IV 02/22/25 06:00 02/27/25 14:41 10 ML Ondansetron HCl 4 mg Q4HP PRN IV 02/21/25 22:30 02/25/25 09:54 4 MG Docusate Sodium 100 mg BIDPRN PRN PO 02/21/25 22:30 Ibuprofen 600 mg Q6HP PRN PO 02/21/25 22:30 02/26/25 05:01 600 MG Famotidine 20 mg DAILY IV 02/22/25 10:00 02/27/25 12:53 20 MG Nitroglycerin 0.4 mg Q5MINP PRN SL 02/21/25 23:15 Diphenhydramine HCl 25 mg Q4HP PRN IV 02/22/25 01:00 02/25/25 18:08 25 MG Nicardipine/ Sodium Chloride 200 ml @ 50 mls/hr Q4H IV 02/22/25 06:00 02/25/25 07:21 100 MLS/HR Prazosin HCl 2 mg Q8HR PO 02/22/25 14:00 Hold Atorvastatin Calcium 20 mg HS PO 02/22/25 22:00 02/26/25 21:28 20 MG Hydromorphone HCl 1 mg Q6HPRN PRN PO 02/23/25 12:45 02/25/25 09:53 1 MG Nifedipine 30 mg TID PO 02/24/25 19:15 02/25/25 14:05 30 MG Lorazepam 1 mg Q3HP PRN IV 02/25/25 10:30 02/25/25 17:02 1 MG Propofol 100 ml @ 2.34 mls/hr Q24H IV 02/25/25 21:30 02/27/25 13:14 16.38 MLS/HR Midazolam HCl 50 ml @ 1 mls/hr Q24H IV 02/25/25 21:30 02/27/25 15:14 6 MLS/HR Fentanyl Citrate 250 ml @ 2.5 mls/hr Q24H IV 02/25/25 21:30 Norepinephrine Bitartrate 250 ml @ 3.75 mls/hr Q24H IV 02/25/25 21:30 Albuterol 2.5 mg Q4HR NEB 02/26/25 14:00 02/27/25 14:32 2.5 MG Ipratropium [place] 0.5 mg Q4HR NEB 02/26/25 14:00 02/27/25 14:32 0.5 MG Hydrocortisone Sodium Succinate 50 mg Q12HR IV 02/26/25 22:00 02/27/25 12:52 50 MG Sodium Bicarbonate 100 ml/Sodium Chloride 1,100 ml @ 75 mls/hr [id number] IV 02/26/25 14:45 02/27/25 10:57 75 MLS/HR Piperacillin Sod/ Tazobactam Sod 100 ml @ 25 mls/hr Q12HR IV 02/26/25 22:00 02/27/25 12:49 25 MLS/HR Vancomycin HCl 0 ml @ 0 mls/hr UD IV 02/27/25 10:30 Albumin Human 100 ml @ 100 mls/hr PRN PRN IV 02/27/25 10:45 02/27/25 23:59 Heparin Sodium (Porcine) 5,000 units Q12HR SC 02/27/25 22:00 Diagnostic Test (Pha) 1 strip Q6HR 02/27/25 12:00 02/27/25 12:00 1 STRIP Insulin Human Regular Q6HR SC 02/27/25 12:00 Dextrose 50 ml UD PRN IV 02/27/25 11:45 Bumetanide 25 mg/ Miscellaneous 100 ml @ 8 mls/hr [id number] IV 02/27/25 14:00 Laboratory Results Laboratory Tests 02/27/25 03:00 Chemistry Test 02/27/25 03:00 Albumin 2.9 g/dL (3.2-4.8) L Calcium Level 7.6 mg/dL (8.7-10.4) L Magnesium Level 2.3 mg/dL (1.6-2.6) Phosphorus Level 8.8 mg/dL (2.4-5.1) H Total Protein 4.8 g/dL (5.7-8.2) L LFT Test 02/27/25 03:00 Alanine Aminotransferase (ALT) 20 U/L (7-40) Alkaline Phosphatase 47 U/L (46-116) Aspartate Amino Transferase (AST) 12 U/L (13-40) L Total Bilirubin 1.1 mg/dL (0.2-1.0) H Urinalysis Test 02/26/25 02:00 Urine Color Light-yellow (Yellow) Urine Clarity Turbid (Clear) H Urine pH 5.0 (5.0-9.0) Urine Specific [place] 1.011 (1.001-1.035) Urine Protein 1+ (Negative) H Urine Ketones Negative (Negative) Urine Blood Trace /uL (Negative) H Urine Nitrite Negative (Negative) Urine Bilirubin Negative (Negative) Urine Urobilinogen Normal mg/dL (Negative) Urine Leukocyte Esterase Negative /uL (Negative) Urine RBC 1 /hpf (0 - 3) Urine Microscopic WBC 4 /HPF (0-3) H Urine Squamous Epithelial Cells Few /hpf (<5) Urine Amorphous Crystals Few /hpf (None Seen) Urine Bacteria Few /hpf (None Seen) H Urine Glucose Normal mg/dL (Normal) Blood Gas Results Test 02/27/25 06:10 Arterial Blood pH 7.261 (7.350-7.450) FiO2 % 90.0 Microbiology Microbiology Date/Time Source Procedure Growth Status 02/26/25 11:38 Sputum Gram Stain - Final Resulted 02/26/25 11:38 Sputum Respiratory Culture - Preliminary Resulted 02/26/25 02:00 Voided Urine Urine Culture - Preliminary Resulted 02/26/25 01:44 Blood Blood Culture - Preliminary NO GROWTH AFTER 24 HOURS OF INCUBATION. Resulted 02/25/25 20:15 Trachea Gram Stain - Final Resulted 02/25/25 20:15 Trachea Respiratory Culture - Preliminary Resulted Assessment/Plan Assessment/Plan Hypertensive emergency Acute on chronic renal failure Generalized weakness Chest pain, rule out acute myocardial infarction Acute hypoxic respiratory failure acute pulmonary edema Hyperkalemia Continue vent management per urban planner Appreciate manager assurance's and nephrology input Continuing morphine p.r.n. for pain. We will monitor kidney function Creat baseline around 2-3 >5.9>7 on HD now Hyperkalemia protocol Critical care time 57 minutes Plan discussed with: Spouse My Orders Orders - BJORN CRUZ MD Procedure Category Date Status Time Apply Z-Guard CEDRIC 02/26/25 In Process 13:30 * Wound Consult CONS 7/24/25 Transmitted Chest Portable XY 02/27/25 Resulted 04:00 Heparin Sodium PHA 02/27/25 In Process (Porcine) 22:00 Glucose Blood PHA 02/27/25 In Process (Accu-Chek Comfort 12:00 Insulin R (Human) PHA 02/27/25 In Process (Insulin R) 12:00 Dextrose 50% Syringe PHA 02/27/25 In Process 11:45 *Dr. Janice Berg -Da CONS 02/27/25 Transmitted Myra 11:36 Date of Service: Feb 27, 2025 Billing Provider: BJORN CRUZ MD Common Visit Codes: [id number] CARE 30-74 MIN BJORN CRUZ MD Feb 27, 2025 16:19
[2025-02-27] MEDS: HEPARIN SODIUM (PORCINE) 5000 UNITS/ML 1ML VIAL SC SCH (21:35)
--- NOTE | 2025-02-27 22:06 | DVHPN2 ---
Progress Note - Dictate Date Seen: Feb 27, 2025 Has the PT tested + for MRSA If YES, has PT been informed?: Yes Medical Necessity Reason Pt with a Central, PICC or Fol: Yes The following are medically ne: Noriega Catheter Reason for noriega catheter: Strict I&O Subjective Patient seen and examined at bedside. Sedated, intubated on mechanical ventilator. Overnight events reviewed. vital signs Vital Sign Date Time Temp Pulse Resp B/P (MAP) Pulse Ox O2 Delivery O2 Flow Rate FiO2 02/27/25 20:30 124 22 127/74 (91) 100 02/27/25 20:16 40 02/27/25 20:00 Mechanical Ventilator+ 02/27/25 20:00 99.1 99.1 02/25/25 20:00 30 Total Intake and Output 02/26/25 02/26/25 02/27/25 15:00 23:00 07:00 Intake Total 833.6 ml 650.2 ml 867.68 ml Output Total 400 ml 100 ml Balance 833.6 ml 250.2 ml 767.68 ml medications Current Medications Medications Dose Ordered Sig/Shayan Route Start Time Stop Time Status Last Admin Dose Admin Aspirin 81 mg DAILY PO 02/22/25 10:00 02/27/25 11:01 81 MG Levothyroxine Sodium 50 mcg QAM@0600 PO 02/22/25 06:00 02/27/25 06:15 50 MCG Clonidine HCl 0.1 mg Q4HP PRN PO 02/21/25 22:30 Sodium Chloride 10 ml Q8HR IV 02/22/25 06:00 02/27/25 21:34 10 ML Ondansetron HCl 4 mg Q4HP PRN IV 02/21/25 22:30 02/25/25 09:54 4 MG Docusate Sodium 100 mg BIDPRN PRN PO 02/21/25 22:30 Ibuprofen 600 mg Q6HP PRN PO 02/21/25 22:30 02/26/25 05:01 600 MG Famotidine 20 mg DAILY IV 02/22/25 10:00 02/27/25 12:53 20 MG Nitroglycerin 0.4 mg Q5MINP PRN SL 02/21/25 23:15 Diphenhydramine HCl 25 mg Q4HP PRN IV 02/22/25 01:00 02/25/25 18:08 25 MG Nicardipine/ Sodium Chloride 200 ml @ 50 mls/hr Q4H IV 02/22/25 06:00 02/25/25 07:21 100 MLS/HR Prazosin HCl 2 mg Q8HR PO 02/22/25 14:00 Hold Atorvastatin Calcium 20 mg HS PO 02/22/25 22:00 02/27/25 21:35 20 MG Hydromorphone HCl 1 mg Q6HPRN PRN PO 02/23/25 12:45 02/25/25 09:53 1 MG Nifedipine 30 mg TID PO 02/24/25 19:15 02/25/25 14:05 30 MG Lorazepam 1 mg Q3HP PRN IV 02/25/25 10:30 02/25/25 17:02 1 MG Propofol 100 ml @ 2.34 mls/hr Q24H IV 02/25/25 21:30 02/27/25 16:51 16.38 MLS/HR Midazolam HCl 50 ml @ 1 mls/hr Q24H IV 02/25/25 21:30 02/27/25 15:14 6 MLS/HR Fentanyl Citrate 250 ml @ 2.5 mls/hr Q24H IV 02/25/25 21:30 Norepinephrine Bitartrate 250 ml @ 3.75 mls/hr Q24H IV 02/25/25 21:30 Albuterol 2.5 mg Q4HR NEB 02/26/25 14:00 02/27/25 18:36 2.5 MG Ipratropium [place] 0.5 mg Q4HR NEB 02/26/25 14:00 02/27/25 18:36 0.5 MG Hydrocortisone Sodium Succinate 50 mg Q12HR IV 02/26/25 22:00 02/27/25 21:34 50 MG Sodium Bicarbonate 100 ml/Sodium Chloride 1,100 ml @ 75 mls/hr [id number] IV 02/26/25 14:45 02/27/25 10:57 75 MLS/HR Piperacillin Sod/ Tazobactam Sod 100 ml @ 25 mls/hr Q12HR IV 02/26/25 22:00 02/27/25 21:35 25 MLS/HR Vancomycin HCl 0 ml @ 0 mls/hr UD IV 02/27/25 10:30 Albumin Human 100 ml @ 100 mls/hr PRN PRN IV 02/27/25 10:45 02/27/25 23:59 Heparin Sodium (Porcine) 5,000 units Q12HR SC 02/27/25 22:00 02/27/25 21:35 5,000 UNITS Diagnostic Test (Pha) 1 strip Q6HR 02/27/25 12:00 02/27/25 18:00 1 STRIP Insulin Human Regular Q6HR SC 02/27/25 12:00 02/27/25 18:00 2 UNITS Dextrose 50 ml UD PRN IV 02/27/25 11:45 Bumetanide 25 mg/ Miscellaneous 100 ml @ 8 mls/hr [id number] IV 02/27/25 14:00 02/27/25 14:00 8 MLS/HR objective Gen.: Patient lying in bed in medical ICU. Sedated, intubated on mechanical ventilator. Head: Normocephalic, atraumatic. Eyes: PERRLA. Ears: Normal external anatomy. Throat: Endotracheal tube and orogastric tube in place. Neck: Supple, trachea midline. Chest: Transmitted breath sounds bilaterally. Decreased air entry bilaterally. No wheezing. Bibasilar crackles. Cardiovascular: Positive S1, positive S2. Regular rate and rhythm. Abdomen: Positive bowel sounds in all 4 quadrants. Soft, nontender, nondistended. : Noriega in place. Normal external genitalia. Rectal: Deferred. Skin: Warm, dry. Intact. Extremities: 2+ radial pulses bilaterally. No lower extremity edema. Neuro: Sedated. laboratory and microbiology Laboratory Tests 02/27/25 03:00 Test 02/27/25 03:00 Range/Units Serum Glucose 361 #H 74-106 mg/dL Assessment/Plan Impression: Acute hypoxemic respiratory failure On mechanical ventilator Fluid overload Pneumonia Atelectasis Pulmonary edema Anemia ESRD, on hemodialysis Events: Patient seen and examined at bedside. Remains on vent support AC mode; RR 22, tidal volume 500, PEEP 12, FiO2 90% Taper FiO2 + PEEP as tolerated. High PEEP and FiO2 requirements. CXR reviewed; reveals multifocal opacities bilaterally. Devices in place. ABG reviewed, notable for acidemia due to metabolic acidosis Continue abx WBC trending down, 14.5 K. Blood cultures show no growth for 24 hours Monitor hemoglobin, trended down to 8.6 g/dL Transfuse if less than 7.0 g/dL. HD per Nephrology - 1.9 liters removed in first session. Bumex drip for diuresis Bicarbonate drip per Nephrology Monitor renal function Monitor electrolytes. Supplement as needed Monitor UOP. Monitor ins and outs. Note, FiO2 improved to 40% post hemodialysis. PEEP was decreased to 10 cmH2O. Updated daughter at bedside. Bronchoscopy was performed yesterday (02/26) for pulmonary toilet See separate note for procedure in detail Labs and imaging reviewed Plan: On mechanical ventilation S/p intubation New vent settings; AC volume control; RR 22, tidal volume 500, PEEP 10, FiO2 40% Titrate to maintain sats 90% or above Sedation for vent synchrony Antibiotics Bronchodilators Monitor hemoglobin Recommend diuresis Monitor renal function F/u nephrology Management deferred HD per Nephrology Monitor electrolytes Supplement as needed Pressors as needed for hemodynamic support To maintain a mean arterial pressure of 65 mmHg DVT prophylaxis Prognosis: Poor given patient's multiple co-morbidities. Condition: Critical Rest of plan per hospitalist and other consultants. A total of 35 minutes of critical care time was spent reviewing the patient record, examining the patient, making a diagnostic and therapeutic plan, discussing this plan with the medical personnel, following up on diagnostic studies and following the patient for clinical stability excluding any and all procedures. At least 50% of this time was spent in direct, [id number] contact. Thank you, Dr. Bass, for allowing me to participate in this patient's care. Further recommendations will depend on the patient's clinical course. Please do not hesitate to contact me if you have any questions or concerns. This medical document was created using an electronic medical record system with [employer] dictation system. Although these documentations are being carefully reviewed, there may still be some phonetic and typographical changes. The errors are purely typographical, due to imperfection on the software program, and do not reflect any compromise in the patient's medical care. Plan discussed with: Vicente, Pawan (HEIDY Campbell) Critical Care Time(min): 35 BÁRBARA FISH MD Feb 27, 2025 22:06
[2025-02-28] VITALS (107 sets, daily range): BP systolic 133–177; BP diastolic 69–98; PULSE 114–131; RESP 18–26; TEMP 98.6–99.3; O2SAT 92–100
[2025-02-28 03:46] LABS: Hematocrit 22.1 % (41.0-53.0); Hemoglobin 8.1 g/dL (13.5-17.5)
[2025-02-28 03:51] LABS: Mean Corpuscular Hemoglobin 31.9 pg (28.0-32.0); Mean Corpuscular Volume 86.9 fL (80.0-100.0); Nucleated Red Blood Cells % 0.1 %
[2025-02-28 04:03] LABS: Alanine Aminotransferase 17 U/L (7-40); Alkaline Phosphatase 52 U/L (46-116); Anion Gap 15 (5-15); BUN/Creatinine Ratio 10.0 (10.0-20.0); Calcium 9.0 mg/dL (8.7-10.4); Carbon Dioxide 28 mmol/L (20-31); Potassium 3.6 mmol/L (3.5-5.1); Sodium 139 mmol/L (136-145)
[2025-02-28 04:04] LABS: Albumin 3.6 g/dL (3.2-4.8); Bilirubin, Total 0.7 mg/dL (0.2-1.0); Blood Urea Nitrogen 60 mg/dL (9-23); Chloride 96 mmol/L (98-107); Glucose 116 mg/dL (74-106); Total Protein 5.6 g/dL (5.7-8.2)
--- NOTE | 2025-02-28 05:50 | DVH ---
CHEST RADIOGRAPH Indication: intubated Technique: Single frontal view of the chest was obtained COMPARISON: XY CHEST PORTABLE on DOS: 02/27/25, XY CHEST PORTABLE on DOS: 02/26/25, XY CHEST XRAY 1 VIE W on DOS: 02/26/25, XY CHEST XRAY 1 VIEW on DOS: 02/25/25, XY CHEST XRAY 1 VIEW on DOS: 02/25/25 FINDINGS: Lines and Tubes: Endotracheal tube, enteric catheter and right central venous catheter in satisfactor y position. Lungs: Multifocal airspace disease Pleura: No effusion. No pneumothorax. Cardiomediastinal contours: Cardiomegaly Bones: Unremarkable IMPRESSION: Lines and tubes in satisfactory position. No significant interval change.
[2025-02-28 09:36] LABS: Base Excess 1.3 mmol/L (-2.0-3.0)
--- NOTE | 2025-02-28 13:22 | DVHPN2 ---
Progress Note - Dictate Date Seen: Feb 28, 2025 Has the PT tested + for MRSA If YES, has PT been informed?: No Medical Necessity Reason Pt with a Central, PICC or Fol: Yes The following are medically ne: Noriega Catheter Reason for noriega catheter: Strict I&O Subjective On mechanical ventilation vital signs Vital Sign Date Time Temp Pulse Resp B/P (MAP) Pulse Ox O2 Delivery O2 Flow Rate FiO2 02/28/25 13:10 143/76 02/28/25 12:00 30 02/28/25 12:00 99.1 126 22 97 99.1 02/28/25 12:00 Mechanical Ventilator+ Total Intake and Output 02/27/25 02/27/25 02/28/25 15:00 23:00 07:00 Intake Total 764.66 ml 816.66 ml 1035.02 ml Output Total 100 ml 400 ml Balance 764.66 ml 716.66 ml 635.02 ml medications Current Medications Medications Dose Ordered Sig/Shayan Route Start Time Stop Time Status Last Admin Dose Admin Aspirin 81 mg DAILY PO 02/22/25 10:00 02/28/25 09:26 81 MG Levothyroxine Sodium 50 mcg QAM@0600 PO 02/22/25 06:00 02/28/25 05:25 50 MCG Clonidine HCl 0.1 mg Q4HP PRN PO 02/21/25 22:30 Sodium Chloride 10 ml Q8HR IV 02/22/25 06:00 02/28/25 05:26 10 ML Ondansetron HCl 4 mg Q4HP PRN IV 02/21/25 22:30 02/25/25 09:54 4 MG Docusate Sodium 100 mg BIDPRN PRN PO 02/21/25 22:30 Ibuprofen 600 mg Q6HP PRN PO 02/21/25 22:30 02/26/25 05:01 600 MG Famotidine 20 mg DAILY IV 02/22/25 10:00 02/28/25 09:26 20 MG Nitroglycerin 0.4 mg Q5MINP PRN SL 02/21/25 23:15 Diphenhydramine HCl 25 mg Q4HP PRN IV 02/22/25 01:00 02/25/25 18:08 25 MG Nicardipine/ Sodium Chloride 200 ml @ 50 mls/hr Q4H IV 02/22/25 06:00 02/28/25 12:32 150 MLS/HR Prazosin HCl 2 mg Q8HR PO 02/22/25 14:00 Hold Atorvastatin Calcium 20 mg HS PO 02/22/25 22:00 02/27/25 21:35 20 MG Hydromorphone HCl 1 mg Q6HPRN PRN PO 02/23/25 12:45 02/28/25 09:51 1 MG Nifedipine 30 mg TID PO 02/24/25 19:15 02/25/25 14:05 30 MG Lorazepam 1 mg Q3HP PRN IV 02/25/25 10:30 02/25/25 17:02 1 MG Propofol 100 ml @ 2.34 mls/hr Q24H IV 02/25/25 21:30 02/28/25 12:31 21.06 MLS/HR Midazolam HCl 50 ml @ 1 mls/hr Q24H IV 02/25/25 21:30 02/28/25 11:13 9 MLS/HR Fentanyl Citrate 250 ml @ 2.5 mls/hr Q24H IV 02/25/25 21:30 Norepinephrine Bitartrate 250 ml @ 3.75 mls/hr Q24H IV 02/25/25 21:30 Albuterol 2.5 mg Q4HR NEB 02/26/25 14:00 02/28/25 09:24 2.5 MG Ipratropium [place] 0.5 mg Q4HR NEB 02/26/25 14:00 02/28/25 09:24 0.5 MG Hydrocortisone Sodium Succinate 50 mg Q12HR IV 02/26/25 22:00 02/28/25 09:26 50 MG Piperacillin Sod/ Tazobactam Sod 100 ml @ 25 mls/hr Q12HR IV 02/26/25 22:00 02/28/25 09:26 25 MLS/HR Vancomycin HCl 0 ml @ 0 mls/hr UD IV 02/27/25 10:30 Heparin Sodium (Porcine) 5,000 units Q12HR SC 02/27/25 22:00 02/28/25 09:28 5,000 UNITS Diagnostic Test (Pha) 1 strip Q6HR 02/27/25 12:00 02/28/25 11:18 1 STRIP Insulin Human Regular Q6HR SC 02/27/25 12:00 02/27/25 18:00 2 UNITS Dextrose 50 ml UD PRN IV 02/27/25 11:45 Bumetanide 25 mg/ Miscellaneous 100 ml @ 8 mls/hr [id number] IV 02/27/25 14:00 02/28/25 13:10 8 MLS/HR objective Sedated HEENT: NC, AT Lungs: Bilateral rales, on mechanical ventilation Cardiac:RRR, no murmur Abd: soft, no tenderness Ext: no edema Neuro: not examined laboratory and microbiology Laboratory Tests 02/28/25 03:00 Test 02/28/25 03:00 Range/Units Serum Glucose 116 #H 74-106 mg/dL Problem List Severev CHANDRA secondary to hypertensive crisis end organ damage CKD stage 4 is baseline HTN emergency, patient has historically refused oral anti hypertensives due to multiple "allergies" and side effects Multiple cardiology and nephrology evaluations at [facility], [facility], [facility], etc have not helped him because he "cannot take any anti hypertensives orally" He was offered nephrectomy and HD at [facility] recently but declined I sent him for renal denervation and or osmar-receptor stimulation therapy but he could not get access to this Acute hypoxic respiratory failure on supplemental oxygen Pneumonia Bacteremia gram positive cocci elevated troponin, r/o NSTEMI h/o carotid artery stenosis s/p stent h/o TIA Hypothyroidism PTSD Plan: HD again tomorrow Switch Nifedipine XL to 60 mg Q12H Continue Bumex drip, patient is making urine again. Daily BMP Strict I&Os Prognosis is guarded Plan discussed with: Spouse CLAIRE JAMES MD Feb 28, 2025 13:22
--- NOTE | 2025-02-28 15:26 | DVHPN2 ---
Subjective The patient is seen and examined at bedside. Remained intubated and sedated. No events overnight. Reviewed: Care Plan, H&P, Labs, Medications, Previous Orders, Radiology Changes from previous H/P or p: No Changes Eyes: No Pain, No Vision change, No Conjunctivae inflammation, No Eyelid inflammation, No Other, No Redness ENT: No Ear pain, No Ear discharge, No Nose pain, No Nose discharge, No Nose congestion, No Mouth pain, No Mouth swelling, No Throat pain, No Throat swelling, No Other Cardiovascular: Chest Pain; No Palpitations, No Orthopnea, No Paroxysmal Noc. Dyspnea, No Edema, No Lt Headedness; Other (Hypertension) Respiratory: No Cough, No Dry, No Shortness of breath, No SOB with excertion, No Wheezing, No Hemoptysis, No Pleuritic Pain, No Sputum, No Other Gastrointestinal: No Nausea, No Vomiting, No Abdominal Pain, No Diarrhea, No Constipation, No Melena, No Hematochezia, No Other Genitourinary: No Dysuria, No Frequency, No Incontinence, No Hematuria, No Retention, No Other Musculoskeletal: No other; neck pain; No shoulder pain, No arm pain, No back pain, No hand pain, No leg pain, No foot pain Skin: No Rash, No Lesions, No Jaundice, No Bruising, No Other Objective Vitals Vital Signs Date Time Temp Pulse Resp B/P (MAP) Pulse Ox O2 Delivery O2 Flow Rate FiO2 02/28/25 13:54 137/75 02/28/25 13:35 124 23 97 30 02/28/25 12:00 99.1 99.1 02/28/25 12:00 Mechanical Ventilator+ Intake/Output Intake and Output 02/28/25 07:00 Intake Total 2616.34 ml Output Total 500 ml Balance 2116.34 ml Intake Oral 30 ml IV Total 2586.34 ml Output Urine Total 500 ml Stool Total 0 ml General Appearance: Other (intubated and sedated) HEENT: Atraumatic, PERRLA, EOMI, Mucous membr. moist/pink Neck: Supple Lungs: Other (decreased sounds) Cardiovascular: Regular rate, Normal S1, Normal S2 Abdomen: Normal bowel sounds, Soft, No tenderness Extremities: Normal pulses Psych/Mental Status: Mental status NL Medications Current Medications Medications Dose Ordered Sig/Shayan Route Start Time Stop Time Status Last Admin Dose Admin Aspirin 81 mg DAILY PO 7/20/25 10:00 02/28/25 09:26 81 MG Levothyroxine Sodium 50 mcg QAM@0600 PO 02/22/25 06:00 02/28/25 05:25 50 MCG Clonidine HCl 0.1 mg Q4HP PRN PO 02/21/25 22:30 Sodium Chloride 10 ml Q8HR IV 02/22/25 06:00 02/28/25 13:45 10 ML Ondansetron HCl 4 mg Q4HP PRN IV 02/21/25 22:30 02/25/25 09:54 4 MG Docusate Sodium 100 mg BIDPRN PRN PO 02/21/25 22:30 Ibuprofen 600 mg Q6HP PRN PO 02/21/25 22:30 02/26/25 05:01 600 MG Famotidine 20 mg DAILY IV 02/22/25 10:00 02/28/25 09:26 20 MG Nitroglycerin 0.4 mg Q5MINP PRN SL 02/21/25 23:15 Diphenhydramine HCl 25 mg Q4HP PRN IV 02/22/25 01:00 02/25/25 18:08 25 MG Nicardipine/ Sodium Chloride 200 ml @ 50 mls/hr Q4H IV 02/22/25 06:00 02/28/25 13:54 150 MLS/HR Prazosin HCl 2 mg Q8HR PO 02/22/25 14:00 Hold Atorvastatin Calcium 20 mg HS PO 02/22/25 22:00 02/27/25 21:35 20 MG Hydromorphone HCl 1 mg Q6HPRN PRN PO 02/23/25 12:45 02/28/25 09:51 1 MG Lorazepam 1 mg Q3HP PRN IV 02/25/25 10:30 02/25/25 17:02 1 MG Propofol 100 ml @ 2.34 mls/hr Q24H IV 02/25/25 21:30 02/28/25 12:31 21.06 MLS/HR Midazolam HCl 50 ml @ 1 mls/hr Q24H IV 02/25/25 21:30 02/28/25 11:13 9 MLS/HR Fentanyl Citrate 250 ml @ 2.5 mls/hr Q24H IV 02/25/25 21:30 Hold Norepinephrine Bitartrate 250 ml @ 3.75 mls/hr Q24H IV 02/25/25 21:30 Albuterol 2.5 mg Q4HR NEB 02/26/25 14:00 02/28/25 13:35 2.5 MG Ipratropium [place] 0.5 mg Q4HR NEB 02/26/25 14:00 02/28/25 13:35 0.5 MG Hydrocortisone Sodium Succinate 50 mg Q12HR IV 02/26/25 22:00 02/28/25 09:26 50 MG Piperacillin Sod/ Tazobactam Sod 100 ml @ 25 mls/hr Q12HR IV 02/26/25 22:00 02/28/25 09:26 25 MLS/HR Vancomycin HCl 0 ml @ 0 mls/hr UD IV 02/27/25 10:30 Heparin Sodium (Porcine) 5,000 units Q12HR SC 02/27/25 22:00 02/28/25 09:28 5,000 UNITS Diagnostic Test (Pha) 1 strip Q6HR 02/27/25 12:00 02/28/25 11:18 1 STRIP Insulin Human Regular Q6HR SC 02/27/25 12:00 02/27/25 18:00 2 UNITS Dextrose 50 ml UD PRN IV 02/27/25 11:45 Bumetanide 25 mg/ Miscellaneous 100 ml @ 8 mls/hr [id number] IV 02/27/25 14:00 02/28/25 13:10 8 MLS/HR Nifedipine 60 mg Q12HR PO 02/28/25 22:00 Laboratory Results Laboratory Tests 02/28/25 03:00 Chemistry Test 02/28/25 03:00 Albumin 3.6 g/dL (3.2-4.8) Calcium Level 9.0 mg/dL (8.7-10.4) Total Protein 5.6 g/dL (5.7-8.2) L LFT Test 02/28/25 03:00 Alanine Aminotransferase (ALT) 17 U/L (7-40) Alkaline Phosphatase 52 U/L (46-116) Aspartate Amino Transferase (AST) 14 U/L (13-40) Total Bilirubin 0.7 mg/dL (0.2-1.0) Urinalysis Test 02/26/25 02:00 Urine Color Light-yellow (Yellow) Urine Clarity Turbid (Clear) H Urine pH 5.0 (5.0-9.0) Urine Specific [place] 1.011 (1.001-1.035) Urine Protein 1+ (Negative) H Urine Ketones Negative (Negative) Urine Blood Trace /uL (Negative) H Urine Nitrite Negative (Negative) Urine Bilirubin Negative (Negative) Urine Urobilinogen Normal mg/dL (Negative) Urine Leukocyte Esterase Negative /uL (Negative) Urine RBC 1 /hpf (0 - 3) Urine Microscopic WBC 4 /HPF (0-3) H Urine Squamous Epithelial Cells Few /hpf (<5) Urine Amorphous Crystals Few /hpf (None Seen) Urine Bacteria Few /hpf (None Seen) H Urine Glucose Normal mg/dL (Normal) Blood Gas Results Test 02/28/25 09:31 Arterial Blood pH 7.390 (7.350-7.450) FiO2 % 30.0 Microbiology Microbiology Date/Time Source Procedure Growth Status 02/26/25 11:38 Sputum Gram Stain - Final Resulted 02/26/25 11:38 Sputum Respiratory Culture - Preliminary Resulted 02/26/25 02:00 Voided Urine Urine Culture - Final Complete 02/26/25 01:44 Blood Blood Culture - Preliminary NO GROWTH AFTER 48 HOURS OF INCUBATION. Resulted 02/25/25 20:15 Trachea Gram Stain - Final Resulted 02/25/25 20:15 Trachea Respiratory Culture - Preliminary Resulted Labs and/or images reviewed: Labs reviewed by me Assessment/Plan Assessment/Plan Acute hypoxic respiratory failure status post intubation Pulmonary edema Hypertensive emergency Acute on chronic renal failure Generalized weakness Chest pain, rule out acute myocardial infarction Continuing current management. Continuing ventilation support. Continuing hypertensive medication. Continuing with kidney function monitor. Continuing sedation Hopefully can wean the patient off ventilation support soon Critical care spent for this case is 37 minutes This medical document was created using an electronic medical record system with [employer] direct computerized dictation system. Although this document has been carefully reviewed, there may still be some phonetic and typographical errors. These areas are purely typographical due to imperfections of the software programs, and do not reflect any compromise in the patient's medical care. Plan discussed with: Other (Rn) Date of Service: Feb 28, 2025 Billing Provider: HERBERT MULLINS MD Common Visit Codes: [id number] CARE 30-74 MIN HERBERT MULLINS MD Feb 28, 2025 15:25
--- NOTE | 2025-02-28 22:48 | DVHPN2 ---
Progress Note - Dictate Date Seen: Feb 28, 2025 Has the PT tested + for MRSA If YES, has PT been informed?: No Medical Necessity Reason Pt with a Central, PICC or Fol: Yes The following are medically ne: Noriega Catheter Reason for noriega catheter: Strict I&O Subjective Patient seen and examined at bedside. Sedated, intubated on mechanical ventilator. Overnight events reviewed. vital signs Vital Sign Date Time Temp Pulse Resp B/P (MAP) Pulse Ox O2 Delivery O2 Flow Rate FiO2 02/28/25 22:45 118 22 152/83 (106) 98 02/28/25 21:59 30 02/28/25 20:00 98.6 98.6 02/28/25 20:00 Mechanical Ventilator+ Total Intake and Output 02/27/25 02/27/25 02/28/25 15:00 23:00 07:00 Intake Total 764.66 ml 816.66 ml 1035.02 ml Output Total 100 ml 400 ml Balance 764.66 ml 716.66 ml 635.02 ml medications Current Medications Medications Dose Ordered Sig/Shayan Route Start Time Stop Time Status Last Admin Dose Admin Aspirin 81 mg DAILY PO 02/22/25 10:00 02/28/25 09:26 81 MG Levothyroxine Sodium 50 mcg QAM@0600 PO 02/22/25 06:00 02/28/25 05:25 50 MCG Clonidine HCl 0.1 mg Q4HP PRN PO 02/21/25 22:30 Sodium Chloride 10 ml Q8HR IV 02/22/25 06:00 02/28/25 21:50 10 ML Ondansetron HCl 4 mg Q4HP PRN IV 02/21/25 22:30 02/25/25 09:54 4 MG Docusate Sodium 100 mg BIDPRN PRN PO 02/21/25 22:30 Ibuprofen 600 mg Q6HP PRN PO 02/21/25 22:30 02/26/25 05:01 600 MG Famotidine 20 mg DAILY IV 02/22/25 10:00 02/28/25 09:26 20 MG Nitroglycerin 0.4 mg Q5MINP PRN SL 02/21/25 23:15 Diphenhydramine HCl 25 mg Q4HP PRN IV 02/22/25 01:00 02/25/25 18:08 25 MG Nicardipine/ Sodium Chloride 200 ml @ 50 mls/hr Q4H IV 02/22/25 06:00 02/28/25 13:54 150 MLS/HR Prazosin HCl 2 mg Q8HR PO 02/22/25 14:00 Hold Atorvastatin Calcium 20 mg HS PO 02/22/25 22:00 02/28/25 21:51 20 MG Hydromorphone HCl 1 mg Q6HPRN PRN PO 02/23/25 12:45 02/28/25 09:51 1 MG Lorazepam 1 mg Q3HP PRN IV 02/25/25 10:30 02/25/25 17:02 1 MG Propofol 100 ml @ 2.34 mls/hr Q24H IV 02/25/25 21:30 02/28/25 22:14 21.06 MLS/HR Midazolam HCl 50 ml @ 1 mls/hr Q24H IV 02/25/25 21:30 02/28/25 21:51 10 MLS/HR Fentanyl Citrate 250 ml @ 2.5 mls/hr Q24H IV 02/25/25 21:30 Hold Norepinephrine Bitartrate 250 ml @ 3.75 mls/hr Q24H IV 02/25/25 21:30 Albuterol 2.5 mg Q4HR NEB 02/26/25 14:00 02/28/25 21:59 2.5 MG Ipratropium [place] 0.5 mg Q4HR NEB 02/26/25 14:00 02/28/25 21:59 0.5 MG Hydrocortisone Sodium Succinate 50 mg Q12HR IV 02/26/25 22:00 02/28/25 21:50 50 MG Piperacillin Sod/ Tazobactam Sod 100 ml @ 25 mls/hr Q12HR IV 02/26/25 22:00 02/28/25 21:50 25 MLS/HR Vancomycin HCl 0 ml @ 0 mls/hr UD IV 02/27/25 10:30 Heparin Sodium (Porcine) 5,000 units Q12HR SC 02/27/25 22:00 02/28/25 21:52 5,000 UNITS Diagnostic Test (Pha) 1 strip Q6HR 02/27/25 12:00 02/28/25 18:16 1 STRIP Insulin Human Regular Q6HR SC 02/27/25 12:00 02/27/25 18:00 2 UNITS Dextrose 50 ml UD PRN IV 02/27/25 11:45 Bumetanide 25 mg/ Miscellaneous 100 ml @ 8 mls/hr [id number] IV 02/27/25 14:00 02/28/25 13:10 8 MLS/HR Nifedipine 60 mg Q12HR PO 02/28/25 22:00 objective Gen.: Patient lying in bed in medical ICU. Sedated, intubated on mechanical ventilator. Head: Normocephalic, atraumatic. Eyes: PERRLA. Ears: Normal external anatomy. Throat: Endotracheal tube and orogastric tube in place. Neck: Supple, trachea midline. Chest: Transmitted breath sounds bilaterally. Decreased air entry bilaterally. No wheezing. Bibasilar crackles. Cardiovascular: Positive S1, positive S2. Regular rate and rhythm. Abdomen: Positive bowel sounds in all 4 quadrants. Soft, nontender, nondistended. : Noriega in place. Normal external genitalia. Rectal: Deferred. Skin: Warm, dry. Intact. Extremities: 2+ radial pulses bilaterally. No lower extremity edema. Neuro: Sedated. laboratory and microbiology Laboratory Tests 02/28/25 03:00 Test 02/28/25 03:00 Range/Units Serum Glucose 116 #H 74-106 mg/dL Assessment/Plan Impression: Acute hypoxemic respiratory failure On mechanical ventilator Fluid overload Pneumonia Atelectasis Pulmonary edema Anemia ESRD, on hemodialysis Events: Patient seen and examined at bedside. Remains on vent support AC mode; RR 22, tidal volume 500, PEEP 8 -->5, FiO2 90-->30% Improving FiO2, PEEP requirements. Sedated on Versed, Propofol. CXR reviewed; reveals multifocal airspace disease and cardiomegaly. Devices in place. ABG reviewed, compensated. On Cardizem drip d/t hypertension. Continue abx - Zosyn WBC within normal limits Blood cultures show no growth for 48 hours Monitor hemoglobin, currently 8.1 g/dL Transfuse if less than 7.0 g/dL. HD per Nephrology - 1.9 liters removed in first session. Bumex for diuresis Bicarbonate drip per Nephrology Monitor renal function Monitor electrolytes. Supplement as needed Monitor UOP. Monitor ins and outs. Bronchoscopy was performed 02/26/25 for pulmonary toileting. See separate note for procedure in detail Labs and imaging reviewed Plan: On mechanical ventilation S/p intubation Titrate to maintain sats 90% or above Sedation for vent synchrony Antibiotics Bronchodilators Monitor hemoglobin Recommend diuresis Monitor renal function F/u nephrology Management deferred HD per Nephrology Monitor electrolytes Supplement as needed Pressors as needed for hemodynamic support To maintain a mean arterial pressure of 65 mmHg DVT prophylaxis Prognosis: Poor given patient's multiple co-morbidities. Condition: Critical Rest of plan per hospitalist and other consultants. A total of 35 minutes of critical care time was spent reviewing the patient record, examining the patient, making a diagnostic and therapeutic plan, discussing this plan with the medical personnel, following up on diagnostic studies and following the patient for clinical stability excluding any and all procedures. At least 50% of this time was spent in direct, [id number] contact. Thank you, Dr. Bass, for allowing me to participate in this patient's care. Further recommendations will depend on the patient's clinical course. Please do not hesitate to contact me if you have any questions or concerns. This medical document was created using an electronic medical record system with [employer] dictation system. Although these documentations are being carefully reviewed, there may still be some phonetic and typographical changes. The errors are purely typographical, due to imperfection on the software program, and do not reflect any compromise in the patient's medical care. Plan discussed with: Other (HEIDY Underwood) Critical Care Time(min): 35 BÁRBARA FISH MD Feb 28, 2025 22:48
[2025-03-01] VITALS (107 sets, daily range): BP systolic 130–170; BP diastolic 64–95; PULSE 110–124; RESP 11–24; TEMP 97.5–99.1; O2SAT 97–99
[2025-03-01 03:56] LABS: Alanine Aminotransferase 20 U/L (7-40); Albumin 4.0 g/dL (3.2-4.8); Alkaline Phosphatase 78 U/L (46-116); Anion Gap 20 (5-15); BUN/Creatinine Ratio 11.0 (10.0-20.0); Bilirubin, Total 0.6 mg/dL (0.2-1.0); Calcium 9.6 mg/dL (8.7-10.4); Carbon Dioxide 25 mmol/L (20-31); Magnesium 2.5 mg/dL (1.6-2.6); Potassium 3.6 mmol/L (3.5-5.1); Sodium 139 mmol/L (136-145); Total Protein 6.1 g/dL (5.7-8.2)
[2025-03-01 03:57] LABS: Blood Urea Nitrogen 78 mg/dL (9-23); Chloride 94 mmol/L (98-107); Glucose 108 mg/dL (74-106)
--- NOTE | 2025-03-01 05:39 | DVH ---
CHEST RADIOGRAPH Indication: INTUBATED Technique: Single frontal view of the chest was obtained Comparison: XY CHEST PORTABLE on DOS: 02/28/25, XY CHEST PORTABLE on DOS: 02/27/25, XY CHEST PORTABLE o n DOS: 02/26/25 IMPRESSION: The heart is stable and enlarged. Right IJ catheter tip in the region of the superior vena cava. En dotracheal tube tip approximately 2 cm from the ivan. Enteric tube tip is at the gastroesophageal j unction, stable, consider advancement for approximately 11 cm for ideal positioning. Possible small left pleural effusion. No significant interval change.
[2025-03-01 07:22] LABS: Base Excess -3.2 mmol/L (-2.0-3.0)
[2025-03-01 10:16] LABS: Hematocrit 23.6 % (41.0-53.0); Hemoglobin 8.4 g/dL (13.5-17.5); Mean Corpuscular Hemoglobin 31.5 pg (28.0-32.0); Mean Corpuscular Volume 88.6 fL (80.0-100.0); Nucleated Red Blood Cells % 0.1 %
[2025-03-01 10:25] LABS: Potassium 3.7 mmol/L (3.5-5.1); Sodium 139 mmol/L (136-145)
[2025-03-01 10:26] LABS: Anion Gap 19 (5-15); Calcium 9.4 mg/dL (8.7-10.4); Carbon Dioxide 23 mmol/L (20-31)
[2025-03-01 10:29] LABS: Chloride 97 mmol/L (98-107)
[2025-03-01 10:31] LABS: BUN/Creatinine Ratio 9.5 (10.0-20.0); Blood Urea Nitrogen 70 mg/dL (9-23); Glucose 100 mg/dL (74-106)
--- NOTE | 2025-03-01 12:34 | DVHPN2 ---
Subjective The patient is seen and examined at bedside. Remained intubated and sedated. No events overnight. Currently on HD Reviewed: Care Plan, H&P, Labs, Medications, Previous Orders, Radiology Changes from previous H/P or p: No Changes Eyes: No Pain, No Vision change, No Conjunctivae inflammation, No Eyelid inflammation, No Other, No Redness ENT: No Ear pain, No Ear discharge, No Nose pain, No Nose discharge, No Nose congestion, No Mouth pain, No Mouth swelling, No Throat pain, No Throat swelling, No Other Cardiovascular: Chest Pain; No Palpitations, No Orthopnea, No Paroxysmal Noc. Dyspnea, No Edema, No Lt Headedness; Other (Hypertension) Respiratory: No Cough, No Dry, No Shortness of breath, No SOB with excertion, No Wheezing, No Hemoptysis, No Pleuritic Pain, No Sputum, No Other Gastrointestinal: No Nausea, No Vomiting, No Abdominal Pain, No Diarrhea, No Constipation, No Melena, No Hematochezia, No Other Genitourinary: No Dysuria, No Frequency, No Incontinence, No Hematuria, No Retention, No Other Musculoskeletal: No other; neck pain; No shoulder pain, No arm pain, No back pain, No hand pain, No leg pain, No foot pain Skin: No Rash, No Lesions, No Jaundice, No Bruising, No Other Objective Vitals Vital Signs Date Time Temp Pulse Resp B/P (MAP) Pulse Ox O2 Delivery O2 Flow Rate FiO2 03/01/25 12:15 114 22 149/79 (102) 99 03/01/25 12:00 30 03/01/25 12:00 Mechanical Ventilator+ 03/01/25 12:00 98.0 98.0 Intake/Output Intake and Output 03/01/25 07:00 Intake Total 3112.60 ml Output Total 1500 ml Balance 1612.60 ml Intake Oral 60 ml IV Total 3052.60 ml Output Urine Total 1500 ml General Appearance: Other (intubated and sedated) HEENT: Atraumatic, PERRLA, EOMI, Mucous membr. moist/pink Neck: Supple Lungs: Other (decreased sounds) Cardiovascular: Regular rate, Normal S1, Normal S2 Abdomen: Normal bowel sounds, Soft, No tenderness Extremities: Normal pulses Psych/Mental Status: Mental status NL Medications Current Medications Medications Dose Ordered Sig/Shayan Route Start Time Stop Time Status Last Admin Dose Admin Aspirin 81 mg DAILY PO 02/22/25 10:00 03/01/25 10:10 81 MG Levothyroxine Sodium 50 mcg QAM@0600 PO 02/22/25 06:00 03/01/25 05:33 50 MCG Clonidine HCl 0.1 mg Q4HP PRN PO 02/21/25 22:30 Sodium Chloride 10 ml Q8HR IV 02/22/25 06:00 03/01/25 05:33 10 ML Ondansetron HCl 4 mg Q4HP PRN IV 02/21/25 22:30 02/25/25 09:54 4 MG Docusate Sodium 100 mg BIDPRN PRN PO 02/21/25 22:30 Ibuprofen 600 mg Q6HP PRN PO 02/21/25 22:30 02/26/25 05:01 600 MG Famotidine 20 mg DAILY IV 02/22/25 10:00 03/01/25 10:10 20 MG Nitroglycerin 0.4 mg Q5MINP PRN SL 02/21/25 23:15 Diphenhydramine HCl 25 mg Q4HP PRN IV 02/22/25 01:00 02/25/25 18:08 25 MG Nicardipine/ Sodium Chloride 200 ml @ 50 mls/hr Q4H IV 02/22/25 06:00 03/01/25 11:32 75 MLS/HR Prazosin HCl 2 mg Q8HR PO 02/22/25 14:00 Hold Atorvastatin Calcium 20 mg HS PO 02/22/25 22:00 02/28/25 21:51 20 MG Hydromorphone HCl 1 mg Q6HPRN PRN PO 02/23/25 12:45 02/28/25 09:51 1 MG Lorazepam 1 mg Q3HP PRN IV 02/25/25 10:30 02/25/25 17:02 1 MG Propofol 100 ml @ 2.34 mls/hr Q24H IV 02/25/25 21:30 03/01/25 09:37 18.72 MLS/HR Midazolam HCl 50 ml @ 1 mls/hr Q24H IV 02/25/25 21:30 03/01/25 08:04 10 MLS/HR Fentanyl Citrate 250 ml @ 2.5 mls/hr Q24H IV 02/25/25 21:30 Hold Norepinephrine Bitartrate 250 ml @ 3.75 mls/hr Q24H IV 02/25/25 21:30 Albuterol 2.5 mg Q4HR NEB 02/26/25 14:00 03/01/25 09:57 2.5 MG Ipratropium [place] 0.5 mg Q4HR NEB 02/26/25 14:00 03/01/25 09:57 0.5 MG Hydrocortisone Sodium Succinate 50 mg Q12HR IV 02/26/25 22:00 03/01/25 10:10 50 MG Piperacillin Sod/ Tazobactam Sod 100 ml @ 25 mls/hr Q12HR IV 02/26/25 22:00 03/01/25 10:11 25 MLS/HR Vancomycin HCl 0 ml @ 0 mls/hr UD IV 02/27/25 10:30 Heparin Sodium (Porcine) 5,000 units Q12HR SC 02/27/25 22:00 03/01/25 10:14 5,000 UNITS Diagnostic Test (Pha) 1 strip Q6HR 02/27/25 12:00 03/01/25 12:03 1 STRIP Insulin Human Regular Q6HR SC 02/27/25 12:00 02/27/25 18:00 2 UNITS Dextrose 50 ml UD PRN IV 02/27/25 11:45 Bumetanide 25 mg/ Miscellaneous 100 ml @ 8 mls/hr [id number] IV 02/27/25 14:00 03/01/25 01:34 8 MLS/HR Nifedipine 60 mg Q12HR PO 02/28/25 22:00 Laboratory Results Laboratory Tests 03/01/25 10:10 Chemistry Test 03/01/25 03:00 03/01/25 10:10 Albumin 4.0 g/dL (3.2-4.8) Calcium Level 9.6 mg/dL (8.7-10.4) 9.4 mg/dL (8.7-10.4) Magnesium Level 2.5 mg/dL (1.6-2.6) Total Protein 6.1 g/dL (5.7-8.2) LFT Test 03/01/25 03:00 Alanine Aminotransferase (ALT) 20 U/L (7-40) Alkaline Phosphatase 78 U/L (46-116) Aspartate Amino Transferase (AST) 18 U/L (13-40) Total Bilirubin 0.6 mg/dL (0.2-1.0) Urinalysis Test 02/26/25 02:00 Urine Color Light-yellow (Yellow) Urine Clarity Turbid (Clear) H Urine pH 5.0 (5.0-9.0) Urine Specific [place] 1.011 (1.001-1.035) Urine Protein 1+ (Negative) H Urine Ketones Negative (Negative) Urine Blood Trace /uL (Negative) H Urine Nitrite Negative (Negative) Urine Bilirubin Negative (Negative) Urine Urobilinogen Normal mg/dL (Negative) Urine Leukocyte Esterase Negative /uL (Negative) Urine RBC 1 /hpf (0 - 3) Urine Microscopic WBC 4 /HPF (0-3) H Urine Squamous Epithelial Cells Few /hpf (<5) Urine Amorphous Crystals Few /hpf (None Seen) Urine Bacteria Few /hpf (None Seen) H Urine Glucose Normal mg/dL (Normal) Blood Gas Results Test 03/01/25 07:08 Arterial Blood pH 7.374 (7.350-7.450) FiO2 % 30.0 Microbiology Microbiology Date/Time Source Procedure Growth Status 02/26/25 11:38 Sputum Gram Stain - Final Resulted 02/26/25 11:38 Sputum Respiratory Culture - Preliminary Resulted 02/26/25 02:00 Voided Urine Urine Culture - Final Complete 02/26/25 01:44 Blood Blood Culture - Preliminary NO GROWTH AFTER 72 HOURS OF INCUBATION. Resulted 02/25/25 20:15 Trachea Gram Stain - Final Complete 02/25/25 20:15 Trachea Respiratory Culture - Final Complete Labs and/or images reviewed: Labs reviewed by me Assessment/Plan Assessment/Plan Acute hypoxic respiratory failure status post intubation Pulmonary edema Hypertensive emergency Acute on chronic renal failure Generalized weakness Chest pain, rule out acute myocardial infarction Continuing current management. Continuing ventilation support. Continuing hypertensive medication. Continuing with kidney function monitor. Continuing sedation Hopefully can wean the patient off ventilation support soon DW RN, Nifedipine XL cannot be crush. Will hold nifedipine. Critical care spent for this case is 37 minutes This medical document was created using an electronic medical record system with [employer] direct computerized dictation system. Although this document has been carefully reviewed, there may still be some phonetic and typographical errors. These areas are purely typographical due to imperfections of the software programs, and do not reflect any compromise in the patient's medical care. Plan discussed with: Other (Rn) Date of Service: Mar 01, 2025 Billing Provider: HERBERT MULLINS MD Common Visit Codes: [id number] INP/OBS CARE(HIGH) HERBERT MULLINS MD Mar 01, 2025 12:34
--- NOTE | 2025-03-01 13:32 | DVHPN2 ---
Progress Note - Dictate Date Seen: Mar 01, 2025 Has the PT tested + for MRSA If YES, has PT been informed?: No Medical Necessity Reason Pt with a Central, PICC or Fol: Yes The following are medically ne: Noriega Catheter Reason for noriega catheter: Strict I&O Subjective On mechanical ventilation Lethargic vital signs Vital Sign Date Time Temp Pulse Resp B/P (MAP) Pulse Ox O2 Delivery O2 Flow Rate FiO2 03/01/25 12:15 114 22 149/79 (102) 99 03/01/25 12:00 30 03/01/25 12:00 Mechanical Ventilator+ 03/01/25 12:00 98.0 98.0 Total Intake and Output 02/28/25 02/28/25 03/01/25 15:00 23:00 07:00 Intake Total 1781.64 ml 463.48 ml 867.48 ml Output Total 800 ml 700 ml Balance 1781.64 ml -336.52 ml 167.48 ml medications Current Medications Medications Dose Ordered Sig/Shayan Route Start Time Stop Time Status Last Admin Dose Admin Aspirin 81 mg DAILY PO 02/22/25 10:00 03/01/25 10:10 81 MG Levothyroxine Sodium 50 mcg QAM@0600 PO 02/22/25 06:00 03/01/25 05:33 50 MCG Clonidine HCl 0.1 mg Q4HP PRN PO 02/21/25 22:30 Sodium Chloride 10 ml Q8HR IV 02/22/25 06:00 03/01/25 05:33 10 ML Ondansetron HCl 4 mg Q4HP PRN IV 02/21/25 22:30 02/25/25 09:54 4 MG Docusate Sodium 100 mg BIDPRN PRN PO 02/21/25 22:30 Ibuprofen 600 mg Q6HP PRN PO 02/21/25 22:30 02/26/25 05:01 600 MG Famotidine 20 mg DAILY IV 02/22/25 10:00 03/01/25 10:10 20 MG Nitroglycerin 0.4 mg Q5MINP PRN SL 02/21/25 23:15 Diphenhydramine HCl 25 mg Q4HP PRN IV 02/22/25 01:00 02/25/25 18:08 25 MG Nicardipine/ Sodium Chloride 200 ml @ 50 mls/hr Q4H IV 02/22/25 06:00 03/01/25 11:32 75 MLS/HR Prazosin HCl 2 mg Q8HR PO 02/22/25 14:00 Hold Atorvastatin Calcium 20 mg HS PO 02/22/25 22:00 02/28/25 21:51 20 MG Hydromorphone HCl 1 mg Q6HPRN PRN PO 02/23/25 12:45 02/28/25 09:51 1 MG Lorazepam 1 mg Q3HP PRN IV 02/25/25 10:30 02/25/25 17:02 1 MG Propofol 100 ml @ 2.34 mls/hr Q24H IV 02/25/25 21:30 03/01/25 09:37 18.72 MLS/HR Midazolam HCl 50 ml @ 1 mls/hr Q24H IV 02/25/25 21:30 03/01/25 13:04 10 MLS/HR Fentanyl Citrate 250 ml @ 2.5 mls/hr Q24H IV 02/25/25 21:30 Hold Norepinephrine Bitartrate 250 ml @ 3.75 mls/hr Q24H IV 02/25/25 21:30 Albuterol 2.5 mg Q4HR NEB 02/26/25 14:00 03/01/25 09:57 2.5 MG Ipratropium [place] 0.5 mg Q4HR NEB 02/26/25 14:00 03/01/25 09:57 0.5 MG Hydrocortisone Sodium Succinate 50 mg Q12HR IV 02/26/25 22:00 03/01/25 10:10 50 MG Piperacillin Sod/ Tazobactam Sod 100 ml @ 25 mls/hr Q12HR IV 02/26/25 22:00 03/01/25 10:11 25 MLS/HR Vancomycin HCl 0 ml @ 0 mls/hr UD IV 02/27/25 10:30 Heparin Sodium (Porcine) 5,000 units Q12HR SC 02/27/25 22:00 03/01/25 10:14 5,000 UNITS Diagnostic Test (Pha) 1 strip Q6HR 02/27/25 12:00 03/01/25 12:03 1 STRIP Insulin Human Regular Q6HR SC 02/27/25 12:00 02/27/25 18:00 2 UNITS Dextrose 50 ml UD PRN IV 02/27/25 11:45 Bumetanide 25 mg/ Miscellaneous 100 ml @ 8 mls/hr [id number] IV 02/27/25 14:00 03/01/25 01:34 8 MLS/HR Nifedipine 60 mg Q12HR PO 02/28/25 22:00 objective Sedated HEENT: NC, AT Lungs: Bilateral rales, on mechanical ventilation Cardiac:RRR, no murmur Abd: soft, no tenderness Ext: no edema Neuro: not examined laboratory and microbiology Laboratory Tests 03/01/25 10:10 Test 03/01/25 10:10 Range/Units Serum Glucose 100 74-106 mg/dL Problem List Severev CHANDRA secondary to hypertensive crisis end organ damage CKD stage 4 is baseline HTN emergency, patient has historically refused oral anti hypertensives due to multiple "allergies" and side effects Multiple cardiology and nephrology evaluations at [facility] [place], [facility], etc have not helped him because he "cannot take any anti hypertensives orally" He was offered nephrectomy and HD at [facility] [place] recently but declined I sent him for renal denervation and or osmar-receptor stimulation therapy but he could not get access to this Acute hypoxic respiratory failure on supplemental oxygen Pneumonia Bacteremia gram positive cocci elevated troponin, r/o NSTEMI h/o carotid artery stenosis s/p stent h/o TIA Hypothyroidism PTSD Plan: He was seen during HD today, tolerated 2 L UF without any rpoblems HD catheter is working well Nifedipine XL to 60 mg Q12H, medication was held, hehas been on nicardipine drip Continue Bumex drip, patient is making urine again, will monitor for signs of renal recovery Daily BMP Strict I&Os Prognosis is guarded Dietary Evaluation Review Comments: 1) Initiate Nephro-Tayla @ 1 tb qd 2) If patient remains NPO > 7 days, consider EN/TPN to meet at least 75% of estimated daily needs 3) If GI route is preferred, consider Nepro CarbSteady @ 40 mL/hr goal rate as tolerated. EN regimen will provide 2222 kcals (including Propofol), 78g Pro, and 715 mL free H2O per 24 hrs. Goal rate will meet ~ 98% estimated daily energy needs and ~ 72% estimated daily protein needs 4) Advance to renal cardiac diet when medically feasible, pending ST approval 5) Follow-up with cardiology, pulmonology, and nephrology 6) Continue to monitor I&O, labs, and skin integrity Expected Outcomes/Goals: 1) patient to receive nutrition support within 7 days of NPO status 2) GI symptoms and labs to improve 3) diet to advance 4) f/u in 2-3 days Plan discussed with: Other (ambulatory nurse) CLAIRE JAMES MD Mar 01, 2025 13:32
[2025-03-01] MEDS: SODIUM CHL 0.9% 1000 ML BAG XX ONE (14:00)
[2025-03-01] MEDS: VANCOMYCIN 500mg/100mL 100 ML IV ONE (17:49)
--- NOTE | 2025-03-01 23:14 | DVHPN2 ---
Progress Note - Dictate Date Seen: Mar 01, 2025 Has the PT tested + for MRSA If YES, has PT been informed?: No Medical Necessity Reason Pt with a Central, PICC or Fol: Yes The following are medically ne: Noriega Catheter Reason for noriega catheter: Strict I&O Subjective Patient seen and examined at bedside. Sedated, intubated on mechanical ventilator. Overnight events reviewed. vital signs Vital Sign Date Time Temp Pulse Resp B/P (MAP) Pulse Ox O2 Delivery O2 Flow Rate FiO2 03/01/25 22:51 139/71 03/01/25 22:23 118 22 97 30 03/01/25 22:00 Mechanical Ventilator+ 03/01/25 22:00 98.6 209.5 Total Intake and Output 02/28/25 02/28/25 03/01/25 15:00 23:00 07:00 Intake Total 1781.64 ml 463.48 ml 867.48 ml Output Total 800 ml 700 ml Balance 1781.64 ml -336.52 ml 167.48 ml medications Current Medications Medications Dose Ordered Sig/Shayan Route Start Time Stop Time Status Last Admin Dose Admin Aspirin 81 mg DAILY PO 02/22/25 10:00 03/01/25 10:10 81 MG Levothyroxine Sodium 50 mcg QAM@0600 PO 02/22/25 06:00 03/01/25 05:33 50 MCG Clonidine HCl 0.1 mg Q4HP PRN PO 02/21/25 22:30 Sodium Chloride 10 ml Q8HR IV 02/22/25 06:00 03/01/25 21:22 10 ML Ondansetron HCl 4 mg Q4HP PRN IV 02/21/25 22:30 02/25/25 09:54 4 MG Docusate Sodium 100 mg BIDPRN PRN PO 02/21/25 22:30 Ibuprofen 600 mg Q6HP PRN PO 02/21/25 22:30 02/26/25 05:01 600 MG Famotidine 20 mg DAILY IV 02/22/25 10:00 03/01/25 10:10 20 MG Nitroglycerin 0.4 mg Q5MINP PRN SL 02/21/25 23:15 Diphenhydramine HCl 25 mg Q4HP PRN IV 02/22/25 01:00 02/25/25 18:08 25 MG Nicardipine/ Sodium Chloride 200 ml @ 50 mls/hr Q4H IV 02/22/25 06:00 03/01/25 21:23 75 MLS/HR Prazosin HCl 2 mg Q8HR PO 02/22/25 14:00 Hold Atorvastatin Calcium 20 mg HS PO 02/22/25 22:00 03/01/25 21:23 20 MG Hydromorphone HCl 1 mg Q6HPRN PRN PO 02/23/25 12:45 03/01/25 18:05 1 MG Lorazepam 1 mg Q3HP PRN IV 02/25/25 10:30 02/25/25 17:02 1 MG Propofol 100 ml @ 2.34 mls/hr Q24H IV 02/25/25 21:30 03/01/25 22:51 18.72 MLS/HR Midazolam HCl 50 ml @ 1 mls/hr Q24H IV 02/25/25 21:30 03/01/25 18:50 10 MLS/HR Fentanyl Citrate 250 ml @ 2.5 mls/hr Q24H IV 02/25/25 21:30 Hold Norepinephrine Bitartrate 250 ml @ 3.75 mls/hr Q24H IV 02/25/25 21:30 Albuterol 2.5 mg Q4HR NEB 02/26/25 14:00 03/01/25 22:17 2.5 MG Ipratropium [place] 0.5 mg Q4HR NEB 02/26/25 14:00 03/01/25 22:17 0.5 MG Hydrocortisone Sodium Succinate 50 mg Q12HR IV 02/26/25 22:00 03/01/25 21:22 50 MG Piperacillin Sod/ Tazobactam Sod 100 ml @ 25 mls/hr Q12HR IV 02/26/25 22:00 03/01/25 21:23 25 MLS/HR Vancomycin HCl 0 ml @ 0 mls/hr UD IV 02/27/25 10:30 Heparin Sodium (Porcine) 5,000 units Q12HR SC 02/27/25 22:00 03/01/25 21:24 5,000 UNITS Diagnostic Test (Pha) 1 strip Q6HR 02/27/25 12:00 03/01/25 18:02 1 STRIP Insulin Human Regular Q6HR SC 02/27/25 12:00 02/27/25 18:00 2 UNITS Dextrose 50 ml UD PRN IV 02/27/25 11:45 Bumetanide 25 mg/ Miscellaneous 100 ml @ 8 mls/hr [id number] IV 02/27/25 14:00 03/01/25 14:39 8 MLS/HR Nifedipine 60 mg Q12HR PO 02/28/25 22:00 objective Gen.: Patient lying in bed in medical ICU. Sedated, intubated on mechanical ventilator. Head: Normocephalic, atraumatic. Eyes: PERRLA. Ears: Normal external anatomy. Throat: Endotracheal tube and orogastric tube in place. Neck: Supple, trachea midline. Chest: Transmitted breath sounds bilaterally. Decreased air entry bilaterally. No wheezing. Bibasilar crackles. Cardiovascular: Positive S1, positive S2. Regular rate and rhythm. Abdomen: Positive bowel sounds in all 4 quadrants. Soft, nontender, nondistended. : Noriega in place. Normal external genitalia. Rectal: Deferred. Skin: Warm, dry. Intact. Extremities: 2+ radial pulses bilaterally. No lower extremity edema. Neuro: Sedated. laboratory and microbiology Laboratory Tests 03/01/25 10:10 Test 03/01/25 10:10 Range/Units Serum Glucose 100 74-106 mg/dL Assessment/Plan Impression: Acute hypoxemic respiratory failure On mechanical ventilator Fluid overload Pneumonia Atelectasis Pulmonary edema Anemia ESRD, on hemodialysis Events: Patient seen and examined at bedside. Remains on vent support AC mode; RR 22, tidal volume 500, PEEP 5, FiO2 30% (PEEP was tapered from 8 to 5) Improving FiO2, PEEP requirements. Sedated on Versed, Propofol. CXR reviewed; reveals possible small left pleural effusion. Devices in place. ABG reviewed, compensated. Plan for hemodialysis On nicardipine drip d/t hypertension. Continue abx - Zosyn WBC trended up at 12.1 K Blood cultures show no growth for 72 hours Continue bronchodilators IV steroids Monitor hemoglobin, stable at 8.4 g/dL Transfuse if less than 7.0 g/dL. HD per Nephrology Nephrology recs appreciated Bumex drip per Nephrology for diuresis Monitor renal function Monitor electrolytes. Supplement as needed Monitor UOP. Monitor ins and outs. Taper sedation as tolerated Precedex drip OK for agitation. SBT/RIVKA. Bronchoscopy was performed 02/26/25 for pulmonary toileting -see separate note for procedure in detail Labs and imaging reviewed Plan: On mechanical ventilation S/p intubation Titrate to maintain sats 90% or above Sedation for vent synchrony Antibiotics Bronchodilators IV steroids Monitor hemoglobin Recommend diuresis Monitor renal function F/u nephrology Management deferred HD per Nephrology Monitor electrolytes Supplement as needed Pressors as needed for hemodynamic support To maintain a mean arterial pressure of 65 mmHg DVT prophylaxis Prognosis: Poor given patient's multiple co-morbidities. Condition: Critical Rest of plan per hospitalist and other consultants. A total of 35 minutes of critical care time was spent reviewing the patient record, examining the patient, making a diagnostic and therapeutic plan, discussing this plan with the medical personnel, following up on diagnostic studies and following the patient for clinical stability excluding any and all procedures. At least 50% of this time was spent in direct, [id number] contact. Thank you, Dr. Bass, for allowing me to participate in this patient's care. Further recommendations will depend on the patient's clinical course. Please do not hesitate to contact me if you have any questions or concerns. This medical document was created using an electronic medical record system with [employer] dictation system. Although these documentations are being carefully reviewed, there may still be some phonetic and typographical changes. The errors are purely typographical, due to imperfection on the software program, and do not reflect any compromise in the patient's medical care. Dietary Evaluation Review Comments: 1) Initiate Nephro-Tayla @ 1 tb qd 2) If patient remains NPO > 7 days, consider EN/TPN to meet at least 75% of estimated daily needs 3) If GI route is preferred, consider Nepro CarbSteady @ 40 mL/hr goal rate as tolerated. EN regimen will provide 2222 kcals (including Propofol), 78g Pro, and 715 mL free H2O per 24 hrs. Goal rate will meet ~ 98% estimated daily energy needs and ~ 72% estimated daily protein needs 4) Advance to renal cardiac diet when medically feasible, pending ST approval 5) Follow-up with cardiology, pulmonology, and nephrology 6) Continue to monitor I&O, labs, and skin integrity Expected Outcomes/Goals: 1) patient to receive nutrition support within 7 days of NPO status 2) GI symptoms and labs to improve 3) diet to advance 4) f/u in 2-3 days Plan discussed with: Other (HEIDY Cooney) Critical Care Time(min): 35 BÁRBARA FISH MD Mar 01, 2025 23:14
[2025-03-02] VITALS (97 sets, daily range): BP systolic 102–156; BP diastolic 48–83; PULSE 106–124; RESP 11–26; TEMP 97.2–99.1; O2SAT 94–100
[2025-03-02 03:53] LABS: Nucleated Red Blood Cells % 0.0 %
[2025-03-02 03:59] LABS: Hematocrit 23.4 % (41.0-53.0); Hemoglobin 8.4 g/dL (13.5-17.5); Mean Corpuscular Hemoglobin 31.7 pg (28.0-32.0); Mean Corpuscular Volume 88.2 fL (80.0-100.0)
[2025-03-02 04:18] LABS: Alanine Aminotransferase 22 U/L (7-40); Albumin 3.7 g/dL (3.2-4.8); Alkaline Phosphatase 79 U/L (46-116); Anion Gap 20 (5-15); BUN/Creatinine Ratio 10.3 (10.0-20.0); Calcium 8.7 mg/dL (8.7-10.4); Carbon Dioxide 24 mmol/L (20-31); Glucose 98 mg/dL (74-106); Potassium 3.5 mmol/L (3.5-5.1); Sodium 141 mmol/L (136-145); Total Protein 5.8 g/dL (5.7-8.2)
[2025-03-02 04:19] LABS: Bilirubin, Total 0.5 mg/dL (0.2-1.0)
[2025-03-02 04:37] LABS: Blood Urea Nitrogen 54 mg/dL (9-23); Chloride 97 mmol/L (98-107)
--- NOTE | 2025-03-02 05:29 | DVH ---
CHEST RADIOGRAPH Indication: PATIENT INTUBATED Technique: Single frontal view of the chest was obtained Comparison: XY CHEST PORTABLE on DOS: 03/01/25 FINDINGS: Lines and Tubes: The endotracheal tube terminates 4.3 cm above the ivan. The enteric tube terminat es in the proximal stomach. Right central venous catheter terminates in the superior vena cava. Lungs: Bilateral airspace disease similar to prior study. Pleura: Bilateral pleural effusions. No pneumothorax. Cardiomediastinal contours: Stable cardiovascular silhouette. Bones: No acute osseous abnormality. IMPRESSION: 1. Stable position of the support lines and tubes. 2. Stable bilateral effusions and bilateral airspace disease.
[2025-03-02 09:04] LABS: Base Excess -2.4 mmol/L (-2.0-3.0)
--- NOTE | 2025-03-02 14:14 | DVHPN2 ---
Progress Note - Dictate Date Seen: Mar 02, 2025 Has the PT tested + for MRSA If YES, has PT been informed?: No Medical Necessity Reason Pt with a Central, PICC or Fol: Yes The following are medically ne: Noriega Catheter Reason for noriega catheter: Strict I&O Subjective Patient is intubated and sedated and on nicardipine drip at 5 milligrams/hour. vital signs Vital Sign Date Time Temp Pulse Resp B/P (MAP) Pulse Ox O2 Delivery O2 Flow Rate FiO2 03/02/25 13:56 121 22 139/76 (97) 97 30 03/02/25 13:00 97.7 97.7 03/02/25 12:00 Mechanical Ventilator+ Total Intake and Output 03/01/25 03/01/25 03/02/25 15:00 23:00 07:00 Intake Total 398.98 ml 663.79 ml 1053.76 ml Output Total 525 ml 400 ml Balance 398.98 ml 138.79 ml 653.76 ml medications Current Medications Medications Dose Ordered Sig/Shayan Route Start Time Stop Time Status Last Admin Dose Admin Aspirin 81 mg DAILY PO 02/22/25 10:00 03/02/25 10:16 81 MG Levothyroxine Sodium 50 mcg QAM@0600 PO 02/22/25 06:00 03/02/25 05:13 50 MCG Clonidine HCl 0.1 mg Q4HP PRN PO 02/21/25 22:30 Sodium Chloride 10 ml Q8HR IV 02/22/25 06:00 03/02/25 05:13 10 ML Ondansetron HCl 4 mg Q4HP PRN IV 02/21/25 22:30 02/25/25 09:54 4 MG Docusate Sodium 100 mg BIDPRN PRN PO 02/21/25 22:30 Ibuprofen 600 mg Q6HP PRN PO 02/21/25 22:30 02/26/25 05:01 600 MG Famotidine 20 mg DAILY IV 02/22/25 10:00 03/02/25 10:16 20 MG Nitroglycerin 0.4 mg Q5MINP PRN SL 02/21/25 23:15 Diphenhydramine HCl 25 mg Q4HP PRN IV 02/22/25 01:00 02/25/25 18:08 25 MG Nicardipine/ Sodium Chloride 200 ml @ 50 mls/hr Q4H IV 02/22/25 06:00 03/02/25 07:39 75 MLS/HR Prazosin HCl 2 mg Q8HR PO 02/22/25 14:00 Hold Atorvastatin Calcium 20 mg HS PO 02/22/25 22:00 03/01/25 21:23 20 MG Hydromorphone HCl 1 mg Q6HPRN PRN PO 02/23/25 12:45 03/01/25 18:05 1 MG Lorazepam 1 mg Q3HP PRN IV 02/25/25 10:30 02/25/25 17:02 1 MG Propofol 100 ml @ 2.34 mls/hr Q24H IV 02/25/25 21:30 03/02/25 11:08 18.72 MLS/HR Midazolam HCl 50 ml @ 1 mls/hr Q24H IV 02/25/25 21:30 03/02/25 09:16 10 MLS/HR Fentanyl Citrate 250 ml @ 2.5 mls/hr Q24H IV 02/25/25 21:30 Hold Norepinephrine Bitartrate 250 ml @ 3.75 mls/hr Q24H IV 02/25/25 21:30 Albuterol 2.5 mg Q4HR NEB 02/26/25 14:00 03/02/25 13:51 2.5 MG Ipratropium [place] 0.5 mg Q4HR NEB 02/26/25 14:00 03/02/25 13:51 0.5 MG Hydrocortisone Sodium Succinate 50 mg Q12HR IV 02/26/25 22:00 03/02/25 10:16 50 MG Piperacillin Sod/ Tazobactam Sod 100 ml @ 25 mls/hr Q12HR IV 02/26/25 22:00 03/02/25 10:16 25 MLS/HR Vancomycin HCl 0 ml @ 0 mls/hr UD IV 02/27/25 10:30 Heparin Sodium (Porcine) 5,000 units Q12HR SC 02/27/25 22:00 03/02/25 10:18 5,000 UNITS Diagnostic Test (Pha) 1 strip Q6HR 02/27/25 12:00 03/02/25 12:06 1 STRIP Insulin Human Regular Q6HR SC 02/27/25 12:00 02/27/25 18:00 2 UNITS Dextrose 50 ml UD PRN IV 02/27/25 11:45 Bumetanide 25 mg/ Miscellaneous 100 ml @ 8 mls/hr [id number] IV 02/27/25 14:00 03/02/25 03:23 8 MLS/HR Nifedipine 60 mg Q12HR PO 02/28/25 22:00 objective Patient is intubated and sedated. HEENT: Normocephalic Lungs: Bilateral good air entry CVS: S1, S2 tachycardic Abdomen: Mildly distended Extremities: No edema laboratory and microbiology Laboratory Tests 03/02/25 03:06 Test 03/02/25 03:06 Range/Units Serum Glucose 98 74-106 mg/dL Problem List Severev CHANDRA secondary to hypertensive crisis end organ damage CKD stage 4 is his baseline HTN emergency, patient has historically refused oral anti hypertensives due to multiple "allergies" and side effects Multiple cardiology and nephrology evaluations at [facility], [facility], etc have not helped him because he "cannot take any anti hypertensives orally" He was offered nephrectomy and HD at [facility] recently but declined He was sent for renal denervation and or osmar-receptor stimulation therapy but he could not get access to this Acute hypoxic respiratory failure on supplemental oxygen Pneumonia Bacteremia gram positive cocci elevated troponin, r/o NSTEMI h/o carotid artery stenosis s/p stent h/o TIA Hypothyroidism PTSD Assessment/Plan Hemodialysis tomorrow Continue with nicardipine drip Continue with Bumex. We will decrease the rate to 1 milligram/hour. Urine output has been adequate. We will continue to monitor for renal recovery Daily BMP Strict I&Os Prognosis is guarded Dietary Evaluation Review Comments: 1) Initiate Nephro-Tayla @ 1 tb qd 2) If patient remains NPO > 7 days, consider EN/TPN to meet at least 75% of estimated daily needs 3) If GI route is preferred, consider Nepro CarbSteady @ 40 mL/hr goal rate as tolerated. EN regimen will provide 2222 kcals (including Propofol), 78g Pro, and 715 mL free H2O per 24 hrs. Goal rate will meet ~ 98% estimated daily energy needs and ~ 72% estimated daily protein needs 4) Advance to renal cardiac diet when medically feasible, pending ST approval 5) Follow-up with cardiology, pulmonology, and nephrology 6) Continue to monitor I&O, labs, and skin integrity Expected Outcomes/Goals: 1) patient to receive nutrition support within 7 days of NPO status 2) GI symptoms and labs to improve 3) diet to advance 4) f/u in 2-3 days Plan discussed with: ABENA Holt MD Mar 02, 2025 14:14
--- NOTE | 2025-03-02 14:48 | DVHPN2 ---
Assessment/Plan Assessment/Plan ICU note 54 M with resistant HTN (with noted allergies but reported making him feel "very sick", no anaphylaxis hx), CKD4, carotid artery stenosis s/p stenting, TIAs, thyroid disease. intubated for acute hypoxic RF 2/2 pulm edema. currently on HD. clean coronaries in 2022. prior plan for BAT and renal denervations. seen today. start tube feeding. tachycardic. adjusting BP meds physical exam intubated, sedated on mech vent PERLLA moving to pain s1 s2 rrr mechanical breath sounds abdomen soft trace le edema labs ekg imaging reviewed assessment and plan acute hypoxic RF req mech vent aspiration PNA gp vs gn CHANDRA ATN on CKD on HD HTN emergency pulmonary edema type 2 MN demand ischemia and decreased renal clearance GPC bacteremia c/w mech vent daily SAT SBT maintain sbp <150, c/w nicardipine HD per renal, bumex per renal c/w vanc Zosyn start nepro start oral anti htn (will have to use alternatives for allergies?) will do clonidine aziza and prazosin (might be able to take ccb as taking nicardipine and no observed reaction) dc hydrocortisone diet nepro dvt ppx heprain gi ppx pepcid condition critical prognosis poor critical care time 65 minutes Plan discussed with: Other My Orders Orders - DION ROSA MD Procedure Category Date Status Time Clonidine Hcl Tablet PHA 03/02/25 Logged (Catapres Tablet) 22:00 Prazosin Hcl Capsule PHA 03/02/25 Logged (Minipres Capsule) 22:00 Date of Service: Mar 02, 2025 Billing Provider: DION ROSA MD Common Visit Codes: 88811-[id number] CARE 30-74 MIN DION ROSA MD Mar 02, 2025 14:48
[2025-03-02] MEDS: BUMETANIDE INJECTION 25 MG in GIVE UN-DILUTED 0 ML IV SCH (18:22)
--- NOTE | 2025-03-02 20:32 | DVHPN2 ---
Progress Note - Dictate Date Seen: Mar 02, 2025 Has the PT tested + for MRSA If YES, has PT been informed?: No Medical Necessity Reason Pt with a Central, PICC or Fol: Yes The following are medically ne: Noriega Catheter Reason for noriega catheter: Strict I&O Subjective Patient seen and examined at bedside. Intubated on mechanical ventilator. Overnight events reviewed. vital signs Vital Sign Date Time Temp Pulse Resp B/P (MAP) Pulse Ox O2 Delivery O2 Flow Rate FiO2 03/02/25 20:00 119 24 143/78 (99) 97 30 03/02/25 18:00 Mechanical Ventilator+ 03/02/25 16:15 97.5 207.5 Total Intake and Output 03/01/25 03/01/25 03/02/25 15:00 23:00 07:00 Intake Total 398.98 ml 663.79 ml 1053.76 ml Output Total 525 ml 400 ml Balance 398.98 ml 138.79 ml 653.76 ml medications Current Medications Medications Dose Ordered Sig/Shayan Route Start Time Stop Time Status Last Admin Dose Admin Aspirin 81 mg DAILY PO 02/22/25 10:00 03/02/25 10:16 81 MG Levothyroxine Sodium 50 mcg QAM@0600 PO 02/22/25 06:00 03/02/25 05:13 50 MCG Sodium Chloride 10 ml Q8HR IV 02/22/25 06:00 03/02/25 14:58 10 ML Famotidine 20 mg DAILY IV 02/22/25 10:00 03/02/25 10:16 20 MG Nicardipine/ Sodium Chloride 200 ml @ 50 mls/hr Q4H IV 02/22/25 06:00 03/02/25 18:22 50 MLS/HR Atorvastatin Calcium 20 mg HS PO 02/22/25 22:00 03/01/25 21:23 20 MG Hydromorphone HCl 1 mg Q6HPRN PRN PO 02/23/25 12:45 03/01/25 18:05 1 MG Propofol 100 ml @ 2.34 mls/hr Q24H IV 02/25/25 21:30 03/02/25 19:49 18.72 MLS/HR Midazolam HCl 50 ml @ 1 mls/hr Q24H IV 02/25/25 21:30 03/02/25 19:49 10 MLS/HR Fentanyl Citrate 250 ml @ 2.5 mls/hr Q24H IV 02/25/25 21:30 Hold Ipratropium [place] 0.5 mg Q4HR NEB 02/26/25 14:00 03/02/25 18:38 0.5 MG Piperacillin Sod/ Tazobactam Sod 100 ml @ 25 mls/hr Q12HR IV 02/26/25 22:00 03/02/25 10:16 25 MLS/HR Vancomycin HCl 0 ml @ 0 mls/hr UD IV 02/27/25 10:30 Heparin Sodium (Porcine) 5,000 units Q12HR SC 02/27/25 22:00 03/02/25 10:18 5,000 UNITS Diagnostic Test (Pha) 1 strip Q6HR 02/27/25 12:00 03/02/25 18:23 1 STRIP Insulin Human Regular Q6HR SC 02/27/25 12:00 02/27/25 18:00 2 UNITS Dextrose 50 ml UD PRN IV 02/27/25 11:45 Bumetanide 25 mg/ Miscellaneous 100 ml @ 4 mls/hr Q24H IV 03/02/25 14:15 03/02/25 18:22 4 MLS/HR Clonidine HCl 0.1 mg BID PO 03/02/25 22:00 Prazosin HCl 1 mg Q12HR PO 03/02/25 22:00 objective Gen.: Patient lying in bed in medical ICU. Intubated on mechanical ventilator. Head: Normocephalic, atraumatic. Eyes: PERRLA. Ears: Normal external anatomy. Throat: Endotracheal tube and orogastric tube in place. Neck: Supple, trachea midline. Chest: Transmitted breath sounds bilaterally. Decreased air entry bilaterally. No wheezing. Bibasilar crackles. Cardiovascular: Positive S1, positive S2. Regular rate and rhythm. Abdomen: Positive bowel sounds in all 4 quadrants. Soft, nontender, nondistended. : Noriega in place. Normal external genitalia. Rectal: Deferred. Skin: Warm, dry. Intact. Extremities: 2+ radial pulses bilaterally. No lower extremity edema. Neuro: Off sedation. laboratory and microbiology Laboratory Tests 03/02/25 03:06 Test 03/02/25 03:06 Range/Units Serum Glucose 98 74-106 mg/dL Assessment/Plan Impression: Acute hypoxemic respiratory failure On mechanical ventilator Fluid overload Pneumonia Atelectasis Pulmonary edema Anemia ESRD, on hemodialysis Events: Remains on vent support AC mode; RR 22, tidal volume 500, PEEP 5, FiO2 30% CXR reviewed; reveals stable bilateral effusions and bilateral airspace disease. ABG reviewed, compensated. On nicardipine drip for hypertension. IV fluids at 5 ml/hr. Continue abx - Zosyn WBC within normal limits Blood cultures show no growth for 72 hours Continue bronchodilators IV steroids Monitor hemoglobin, stable at 8.4 g/dL HD per Nephrology Nephrology recs appreciated Off Bumex Monitor renal function Monitor electrolytes. Supplement as needed Monitor UOP. Monitor ins and outs. Taper sedation Precedex drip OK for agitation. Recommend CPAP trial with PS 8, PEEP of 5 in AM once patient is awake, alert and following commands. Bronchoscopy was performed 02/26/25 for pulmonary toileting -see separate note for procedure in detail Labs and imaging reviewed Plan: On mechanical ventilation S/p intubation Titrate to maintain sats 90% or above Antibiotics Bronchodilators IV steroids Monitor hemoglobin Transfuse if less than 7.0 g/dL. Monitor renal function F/u nephrology Management deferred HD per Nephrology Monitor electrolytes. Supplement as needed Maintain euvolemia Pressors as needed for hemodynamic support To maintain a mean arterial pressure of 65 mmHg DVT prophylaxis Prognosis: Poor given patient's multiple co-morbidities. Condition: Critical Rest of plan per hospitalist and other consultants. A total of 35 minutes of critical care time was spent reviewing the patient record, examining the patient, making a diagnostic and therapeutic plan, discussing this plan with the medical personnel, following up on diagnostic studies and following the patient for clinical stability excluding any and all procedures. At least 50% of this time was spent in direct, [id number] contact. Thank you, Dr. Bass, for allowing me to participate in this patient's care. Further recommendations will depend on the patient's clinical course. Please do not hesitate to contact me if you have any questions or concerns. This medical document was created using an electronic medical record system with [employer] system. Although these documentations are being carefully reviewed, there may still be some phonetic and typographical changes. The errors are purely typographical, due to imperfection on the software program, and do not reflect any compromise in the patient's medical care. Dietary Evaluation Review Comments: 1) Initiate Nephro-Tayla @ 1 tb qd 2) If patient remains NPO > 7 days, consider EN/TPN to meet at least 75% of estimated daily needs 3) If GI route is preferred, consider Nepro CarbSteady @ 40 mL/hr goal rate as tolerated. EN regimen will provide 2222 kcals (including Propofol), 78g Pro, and 715 mL free H2O per 24 hrs. Goal rate will meet ~ 98% estimated daily energy needs and ~ 72% estimated daily protein needs 4) Advance to renal cardiac diet when medically feasible, pending ST approval 5) Follow-up with cardiology, pulmonology, and nephrology 6) Continue to monitor I&O, labs, and skin integrity Expected Outcomes/Goals: 1) patient to receive nutrition support within 7 days of NPO status 2) GI symptoms and labs to improve 3) diet to advance 4) f/u in 2-3 days Plan discussed with: Other (HEIDY Cooney) Critical Care Time(min): 35 BÁRBARA FISH MD Mar 02, 2025 20:32
[2025-03-02] MEDS: PRAZOSIN HCL 1 MG CAP PO SCH (21:08)
[2025-03-03] VITALS (101 sets, daily range): BP systolic 124–157; BP diastolic 62–86; PULSE 117–128; RESP 12–26; TEMP 97.9–99.1; O2SAT 97–100
[2025-03-03 03:42] LABS: Hematocrit 21.7 % (41.0-53.0); Hemoglobin 7.8 g/dL (13.5-17.5); Mean Corpuscular Hemoglobin 31.8 pg (28.0-32.0); Mean Corpuscular Volume 88.1 fL (80.0-100.0); Nucleated Red Blood Cells % 0.1 %
[2025-03-03 04:05] LABS: Alanine Aminotransferase 29 U/L (7-40); Alkaline Phosphatase 91 U/L (46-116); Anion Gap 21 (5-15); Calcium 8.8 mg/dL (8.7-10.4); Carbon Dioxide 22 mmol/L (20-31); Potassium 3.6 mmol/L (3.5-5.1); Sodium 140 mmol/L (136-145)
[2025-03-03 04:07] LABS: BUN/Creatinine Ratio 10.5 (10.0-20.0); Glucose 86 mg/dL (74-106)
[2025-03-03 04:09] LABS: Albumin 3.6 g/dL (3.2-4.8); Bilirubin, Total 0.4 mg/dL (0.2-1.0)
[2025-03-03 04:21] LABS: Blood Urea Nitrogen 64 mg/dL (9-23); Chloride 97 mmol/L (98-107); Total Protein 5.6 g/dL (5.7-8.2)
--- NOTE | 2025-03-03 05:39 | DVH ---
CHEST RADIOGRAPH Indication: PATIENT INTUBATED Technique: Single frontal view of the chest was obtained COMPARISON: XY CHEST PORTABLE on DOS: 03/02/25, XY CHEST PORTABLE on DOS: 03/01/25, XY CHEST PORTABLE o n DOS: 02/28/25, XY CHEST PORTABLE on DOS: 02/27/25, XY CHEST PORTABLE on DOS: 02/26/25 FINDINGS: Lines and Tubes: Slight interval advancement of the endotracheal tube such that the tip now projects approximately 3.2 cm above the level of the ivan. Remaining lines and tubes are unchanged. Lungs: Grossly stable appearing bibasilar pulmonary airspace disease. Pleura: No effusion. No pneumothorax. Cardiomediastinal contours: Unremarkable Bones: Unremarkable IMPRESSION: 1. Stable bibasilar pulmonary airspace disease. 2. Slight interval advancement of endotracheal tube with remaining lines and tubes unchanged.
[2025-03-03 07:45] LABS: Base Excess -3.8 mmol/L (-2.0-3.0)
--- NOTE | 2025-03-03 12:59 | DVHPN2 ---
Assessment/Plan Assessment/Plan ICU note 54 M with resistant HTN (with noted allergies but reported making him feel "very sick", no anaphylaxis hx), CKD4, carotid artery stenosis s/p stenting, TIAs, thyroid disease. intubated for acute hypoxic RF 2/2 pulm edema. currently on HD. clean coronaries in 2022. prior plan for BAT and renal denervations. seen today. titrating bp meds to titrate down nicardipine physical exam intubated, sedated on mech vent PERLLA moving to pain s1 s2 rrr mechanical breath sounds abdomen soft trace le edema labs ekg imaging reviewed assessment and plan acute hypoxic RF req mech vent aspiration PNA gp vs gn CHANDRA ATN on CKD on HD HTN emergency pulmonary edema type 2 NC demand ischemia and decreased renal clearance GPC bacteremia c/w mech vent daily SAT SBT maintain sbp <150, c/w nicardipine HD per renal, bumex per renal c/w vanc Zosyn start nepro start oral anti htn (will have to use alternatives for allergies?) will do clonidine aziza and prazosin (might be able to take ccb as taking nicardipine and no observed reaction) dc hydrocortisone diet nepro dvt ppx heprain gi ppx pepcid condition critical prognosis poor critical care time 45 minutes Plan discussed with: Other My Orders Orders - DION ROSA MD Procedure Category Date Status Time Clonidine Hcl Tablet PHA 03/02/25 In Process (Catapres Tablet) 22:00 Prazosin Hcl Capsule PHA 03/02/25 In Process (Minipres Capsule) 22:00 Nutritional PHA 03/03/25 In Process Supplements (Nepro 09:30 Date of Service: Mar 03, 2025 Billing Provider: DION ROSA MD Common Visit Codes: [id number] CARE 30-74 MIN DION ROSA MD Mar 03, 2025 12:59
[2025-03-03] MEDS: VANCOMYCIN 500mg/100mL 100 ML IV ONE (14:24)
[2025-03-03] MEDS: Nepro With Carb Steady 1 Liter Bottle GT SCH (14:56)
--- NOTE | 2025-03-03 16:33 | DVHPN2 ---
Progress Note - Dictate Date Seen: Mar 03, 2025 Has the PT tested + for MRSA If YES, has PT been informed?: No Medical Necessity Reason Pt with a Central, PICC or Fol: Yes The following are medically ne: Noriega Catheter Reason for noriega catheter: Strict I&O Subjective Patient is intubated and sedated and on nicardipine drip at 5 milligrams/hour. vital signs Vital Sign Date Time Temp Pulse Resp B/P (MAP) Pulse Ox O2 Delivery O2 Flow Rate FiO2 03/03/25 16:11 121 24 141/76 (97) 100 30 03/03/25 16:00 Mechanical Ventilator+ 03/03/25 14:00 98.4 209.1 Total Intake and Output 03/02/25 03/02/25 03/03/25 15:00 23:00 07:00 Intake Total 510.76 ml 680.76 ml 961.76 ml Output Total 850 ml 800 ml Balance 510.76 ml -169.24 ml 161.76 ml medications Current Medications Medications Dose Ordered Sig/Shayan Route Start Time Stop Time Status Last Admin Dose Admin Aspirin 81 mg DAILY PO 02/22/25 10:00 03/03/25 10:18 81 MG Levothyroxine Sodium 50 mcg QAM@0600 PO 02/22/25 06:00 03/03/25 05:28 50 MCG Sodium Chloride 10 ml Q8HR IV 02/22/25 06:00 03/03/25 14:24 10 ML Famotidine 20 mg DAILY IV 02/22/25 10:00 03/03/25 10:17 20 MG Nicardipine/ Sodium Chloride 200 ml @ 50 mls/hr Q4H IV 02/22/25 06:00 03/03/25 10:13 50 MLS/HR Atorvastatin Calcium 20 mg HS PO 02/22/25 22:00 03/02/25 21:06 20 MG Hydromorphone HCl 1 mg Q6HPRN PRN PO 02/23/25 12:45 03/01/25 18:05 1 MG Propofol 100 ml @ 2.34 mls/hr Q24H IV 02/25/25 21:30 03/03/25 15:57 18.72 MLS/HR Midazolam HCl 50 ml @ 1 mls/hr Q24H IV 02/25/25 21:30 03/03/25 14:03 10 MLS/HR Fentanyl Citrate 250 ml @ 2.5 mls/hr Q24H IV 02/25/25 21:30 Hold Ipratropium [place] 0.5 mg Q4HR NEB 02/26/25 14:00 03/03/25 14:40 0.5 MG Piperacillin Sod/ Tazobactam Sod 100 ml @ 25 mls/hr Q12HR IV 02/26/25 22:00 03/03/25 11:47 25 MLS/HR Vancomycin HCl 0 ml @ 0 mls/hr UD IV 02/27/25 10:30 Heparin Sodium (Porcine) 5,000 units Q12HR SC 02/27/25 22:00 03/03/25 10:17 5,000 UNITS Diagnostic Test (Pha) 1 strip Q6HR 02/27/25 12:00 03/03/25 11:54 1 STRIP Insulin Human Regular Q6HR SC 02/27/25 12:00 02/27/25 18:00 2 UNITS Dextrose 50 ml UD PRN IV 02/27/25 11:45 Prazosin HCl 1 mg Q12HR PO 03/02/25 22:00 03/03/25 10:19 1 MG Enteral Nutritional Formula 1,000 ml 30ML/HR GT 03/03/25 09:30 03/03/25 14:56 1,000 ML Clonidine HCl 0.2 mg BID PO 03/03/25 22:00 Bumetanide 25 mg/ Miscellaneous 100 ml @ 2 mls/hr Q24H IV 03/03/25 16:30 UNV objective Patient is intubated and sedated. HEENT: Normocephalic Lungs: Bilateral good air entry CVS: S1, S2 tachycardic Abdomen: Mildly distended Extremities: No edema laboratory and microbiology Laboratory Tests 03/03/25 03:00 Test 03/03/25 03:00 Range/Units Serum Glucose 86 74-106 mg/dL Problem List Severe CHANDRA secondary to hypertensive crisis end organ damage CKD stage 4 is his baseline HTN emergency, patient has historically refused oral anti hypertensives due to multiple "allergies" and side effects [place] and [place] [facility] [place] [facility], etc have not helped him because he "cannot take any anti hypertensives orally" He was offered [place] and [place] [facility] [place] but declined He was sent for renal denervation and or osmar-receptor stimulation therapy but he could not get access to this Acute hypoxic respiratory failure on supplemental oxygen Pneumonia Bacteremia gram positive cocci elevated troponin, r/o NSTEMI h/o carotid artery stenosis s/p stent h/o TIA Hypothyroidism PTSD Assessment/Plan Hemodialysis today Continue with nicardipine drip Continue with Bumex. We will decrease the rate to 0.5milligram/hour. We will continue to monitor for renal recovery Daily BMP Strict I&Os Prognosis is guarded Dietary Evaluation Review Comments: 1) Initiate Nephro-Tayla @ 1 tb qd 2) If patient remains NPO > 7 days, consider EN/TPN to meet at least 75% of estimated daily needs 3) If GI route is preferred, consider Nepro CarbSteady @ 40 mL/hr goal rate as tolerated. EN regimen will provide 2222 kcals (including Propofol), 78g Pro, and 715 mL free H2O per 24 hrs. Goal rate will meet ~ 98% estimated daily energy needs and ~ 72% estimated daily protein needs 4) Advance to renal cardiac diet when medically feasible, pending ST approval 5) Follow-up with cardiology, pulmonology, and nephrology 6) Continue to monitor I&O, labs, and skin integrity Expected Outcomes/Goals: 1) patient to receive nutrition support within 7 days of NPO status 2) GI symptoms and labs to improve 3) diet to advance 4) f/u in 2-3 days Plan discussed with: Spouse, Other ABENA JULIEN MD Mar 03, 2025 16:33
[2025-03-03] MEDS: SODIUM CHL 0.9% 1000 ML BAG XX ONE (17:16)
[2025-03-03] MEDS: BUMETANIDE INJECTION 25 MG in GIVE UN-DILUTED 0 ML IV SCH (17:16)
[2025-03-03] MEDS: POLYETHYLENE GLYCOL 17 GM PWDR PO SCH (18:56)
[2025-03-03] MEDS: EPOETIN ALFA-EPBX 10,000 UNIT/1ML VIAL SC ONE (22:19)
[2025-03-03] MEDS: SENNA 8.6 MG TAB PO SCH (22:22)
--- NOTE | 2025-03-03 23:28 | DVHPN2 ---
Progress Note - Dictate Date Seen: Mar 03, 2025 Has the PT tested + for MRSA If YES, has PT been informed?: No Medical Necessity Reason Pt with a Central, PICC or Fol: Yes The following are medically ne: Noriega Catheter Reason for noriega catheter: Strict I&O Subjective Patient seen and examined at bedside. Sedated, intubated on mechanical ventilator. Overnight events reviewed. vital signs Vital Sign Date Time Temp Pulse Resp B/P (MAP) Pulse Ox O2 Delivery O2 Flow Rate FiO2 03/03/25 22:55 134/67 03/03/25 21:55 124 25 99 30 03/03/25 18:45 98.8 209.8 03/03/25 18:17 Mechanical Ventilator+ Total Intake and Output 03/02/25 03/02/25 03/03/25 15:00 23:00 07:00 Intake Total 510.76 ml 680.76 ml 961.76 ml Output Total 850 ml 800 ml Balance 510.76 ml -169.24 ml 161.76 ml medications Current Medications Medications Dose Ordered Sig/Shayan Route Start Time Stop Time Status Last Admin Dose Admin Aspirin 81 mg DAILY PO 02/22/25 10:00 03/03/25 10:18 81 MG Levothyroxine Sodium 50 mcg QAM@0600 PO 02/22/25 06:00 03/03/25 05:28 50 MCG Sodium Chloride 10 ml Q8HR IV 02/22/25 06:00 03/03/25 14:24 10 ML Famotidine 20 mg DAILY IV 02/22/25 10:00 03/03/25 10:17 20 MG Nicardipine/ Sodium Chloride 200 ml @ 50 mls/hr Q4H IV 02/22/25 06:00 03/03/25 21:04 100 MLS/HR Atorvastatin Calcium 20 mg HS PO 02/22/25 22:00 03/03/25 22:23 20 MG Hydromorphone HCl 1 mg Q6HPRN PRN PO 02/23/25 12:45 03/01/25 18:05 1 MG Propofol 100 ml @ 2.34 mls/hr Q24H IV 02/25/25 21:30 03/03/25 20:35 18.72 MLS/HR Midazolam HCl 50 ml @ 1 mls/hr Q24H IV 02/25/25 21:30 03/03/25 18:55 10 MLS/HR Fentanyl Citrate 250 ml @ 2.5 mls/hr Q24H IV 02/25/25 21:30 Hold Ipratropium [place] 0.5 mg Q4HR NEB 02/26/25 14:00 03/03/25 21:54 0.5 MG Piperacillin Sod/ Tazobactam Sod 100 ml @ 25 mls/hr Q12HR IV 02/26/25 22:00 03/03/25 22:07 25 MLS/HR Vancomycin HCl 0 ml @ 0 mls/hr UD IV 02/27/25 10:30 Heparin Sodium (Porcine) 5,000 units Q12HR SC 02/27/25 22:00 03/03/25 22:20 5,000 UNITS Diagnostic Test (Pha) 1 strip Q6HR 02/27/25 12:00 03/03/25 18:05 1 STRIP Insulin Human Regular Q6HR SC 02/27/25 12:00 02/27/25 18:00 2 UNITS Dextrose 50 ml UD PRN IV 02/27/25 11:45 Prazosin HCl 1 mg Q12HR PO 03/02/25 22:00 03/03/25 22:24 1 MG Enteral Nutritional Formula 1,000 ml 30ML/HR GT 03/03/25 09:30 03/03/25 14:56 1,000 ML Clonidine HCl 0.2 mg BID PO 03/03/25 22:00 03/03/25 22:23 0.2 MG Bumetanide 25 mg/ Miscellaneous 100 ml @ 2 mls/hr Q24H IV 03/03/25 16:30 03/03/25 17:16 2 MLS/HR Sennosides 8.6 mg HS PO 03/03/25 22:00 03/03/25 22:22 8.6 MG Polyethylene Glycol 17 gm DAILY PO 03/03/25 18:40 03/03/25 18:56 17 GM objective Gen.: Patient lying in bed in medical ICU. Sedated, intubated on mechanical ventilator. Head: Normocephalic, atraumatic. Eyes: PERRLA. Ears: Normal external anatomy. Throat: Endotracheal tube and orogastric tube in place. Neck: Supple, trachea midline. Chest: Transmitted breath sounds bilaterally. Decreased air entry bilaterally. No wheezing. Bibasilar crackles. Cardiovascular: Positive S1, positive S2. Regular rate and rhythm. Abdomen: Positive bowel sounds in all 4 quadrants. Soft, nontender, nondistended. : Noriega in place. Normal external genitalia. Rectal: Deferred. Skin: Warm, dry. Intact. Extremities: 2+ radial pulses bilaterally. No lower extremity edema. Neuro: Sedated. laboratory and microbiology Laboratory Tests 03/03/25 03:00 Test 03/03/25 03:00 Range/Units Serum Glucose 86 74-106 mg/dL Assessment/Plan Impression: Acute hypoxemic respiratory failure On mechanical ventilator Fluid overload Pneumonia Atelectasis Pulmonary edema Anemia ESRD, on hemodialysis Events: Remains on vent support AC mode; RR 22, tidal volume 500, PEEP 5, FiO2 30% Sedated on Propofol and Versed. CXR reviewed; reveals stable bibasilar pulmonary airspace disease. Slight interval advancement of endotracheal tube with remaining lines and tubes unchanged. ABG reviewed, compensated. Hemodialysis today - 3 liters removed. On Nicardipine drip for blood pressure control. Continue PO medications for BP control. IV fluids at 5 ml/hr. Sputum culture positive for MRSA Continue abx - Zosyn and vancomycin WBC within normal limits Blood cultures show no growth after 5 days Continue bronchodilators Monitor hemoglobin, trended down to 7.8 g/dL HD per Nephrology Nephrology recs appreciated Diurese w/ Bumex drip. Monitor renal function Monitor electrolytes. Supplement as needed Monitor UOP. Monitor ins and outs. Tube feeds for nutritional support SBT/RIVKA. Taper sedation as tolerated Precedex drip OK for agitation. CPAP trial with PS 8, PEEP of 5 Bronchoscopy was performed 02/26/25 for pulmonary toileting -see separate note for procedure in detail Labs and imaging reviewed Plan: On mechanical ventilation S/p intubation Titrate to maintain sats 90% or above Antibiotics Bronchodilators Monitor hemoglobin Transfuse if less than 7.0 g/dL. Monitor renal function F/u nephrology Management deferred HD per Nephrology Monitor electrolytes. Supplement as needed Maintain euvolemia Pressors as needed for hemodynamic support To maintain a mean arterial pressure of 65 mmHg DVT prophylaxis Prognosis: Poor given patient's multiple co-morbidities. Condition: Critical Rest of plan per hospitalist and other consultants. A total of 35 minutes of critical care time was spent reviewing the patient record, examining the patient, making a diagnostic and therapeutic plan, discussing this plan with the medical personnel, following up on diagnostic studies and following the patient for clinical stability excluding any and all procedures. At least 50% of this time was spent in direct, [id number] contact. Thank you, Dr. Bass, for allowing me to participate in this patient's care. Further recommendations will depend on the patient's clinical course. Please do not hesitate to contact me if you have any questions or concerns. This medical document was created using an electronic medical record system with [employer] dictation system. Although these documentations are being carefully reviewed, there may still be some phonetic and typographical changes. The errors are purely typographical, due to imperfection on the software program, and do not reflect any compromise in the patient's medical care. Dietary Evaluation Review Comments: 1) Initiate Nephro-Tayla @ 1 tb qd 2) If patient remains NPO > 7 days, consider EN/TPN to meet at least 75% of estimated daily needs 3) If GI route is preferred, consider Nepro CarbSteady @ 40 mL/hr goal rate as tolerated. EN regimen will provide 2222 kcals (including Propofol), 78g Pro, and 715 mL free H2O per 24 hrs. Goal rate will meet ~ 98% estimated daily energy needs and ~ 72% estimated daily protein needs 4) Advance to renal cardiac diet when medically feasible, pending ST approval 5) Follow-up with cardiology, pulmonology, and nephrology 6) Continue to monitor I&O, labs, and skin integrity Expected Outcomes/Goals: 1) patient to receive nutrition support within 7 days of NPO status 2) GI symptoms and labs to improve 3) diet to advance 4) f/u in 2-3 days Plan discussed with: Other (HEIDY Cooney) Critical Care Time(min): 35 BÁRBARA FISH MD Mar 03, 2025 23:28
[2025-03-04] VITALS (109 sets, daily range): BP systolic 116–160; BP diastolic 65–85; PULSE 106–125; RESP 13–26; TEMP 97.5–99.1; O2SAT 94–100
[2025-03-04 04:16] LABS: Chloride 99 mmol/L (98-107); Sodium 142 mmol/L (136-145)
[2025-03-04 04:17] LABS: Anion Gap 17 (5-15); Carbon Dioxide 26 mmol/L (20-31)
[2025-03-04 04:22] LABS: BUN/Creatinine Ratio 9.7 (10.0-20.0); Glucose 101 mg/dL (74-106)
[2025-03-04 04:31] LABS: Hemoglobin 8.2 g/dL (13.5-17.5)
[2025-03-04 04:32] LABS: Hematocrit 21.8 % (41.0-53.0); Mean Corpuscular Hemoglobin 32.3 pg (28.0-32.0); Mean Corpuscular Volume 86.4 fL (80.0-100.0); Nucleated Red Blood Cells % 0.1 %
[2025-03-04 04:34] LABS: Blood Urea Nitrogen 43 mg/dL (9-23); Calcium 8.3 mg/dL (8.7-10.4); Potassium 2.9 mmol/L (3.5-5.1)
--- NOTE | 2025-03-04 04:47 | DVH ---
CHEST RADIOGRAPH Indication: itubated Technique: Single frontal view of the chest was obtained COMPARISON: XY CHEST PORTABLE on DOS: 03/03/25, XY CHEST PORTABLE on DOS: 03/02/25, XY CHEST PORTABLE o n DOS: 03/01/25, XY CHEST PORTABLE on DOS: 02/28/25, XY CHEST PORTABLE on DOS: 02/27/25 FINDINGS: Lines and Tubes: Unchanged. Lungs: Stable appearing bibasilar pulmonary airspace disease and minimal left pleural effusion. No pneumothorax. Cardiomediastinal contours: Unremarkable Bones: Unremarkable IMPRESSION: 1. Stable bibasilar pulmonary airspace disease and minimal left pleural effusion. 2. Lines and tubes unchanged.
[2025-03-04] MEDS: POTASSIUM CHL 20MEQ/100ML 100 ML IV SCH (06:03)
[2025-03-04 06:10] LABS: Base Excess 2.1 mmol/L (-2.0-3.0)
[2025-03-04] MEDS ORDERED: SODIUM CHL 0.9% 1000 ML BAG XX ONE (07:00)
--- NOTE | 2025-03-04 14:21 | DVHPN2 ---
Assessment/Plan Assessment/Plan ICU note 54 M with resistant HTN (with noted allergies but reported making him feel "very sick", no anaphylaxis hx), CKD4, carotid artery stenosis s/p stenting, TIAs, thyroid disease. intubated for acute hypoxic RF 2/2 pulm edema. currently on HD. clean coronaries in 2022. prior plan for BAT and renal denervations. seen today. called on the phone, shared decision making with NOK to try to desensitize patient. will start coreg on the lowest dose. physical exam intubated, sedated on mech vent PERLLA moving to pain s1 s2 rrr mechanical breath sounds abdomen soft trace le edema labs ekg imaging reviewed assessment and plan acute hypoxic RF req mech vent aspiration PNA gp vs gn CHANDRA ATN on CKD on HD HTN emergency pulmonary edema type 2 CA demand ischemia and decreased renal clearance GPC bacteremia c/w mech vent daily SAT SBT maintain sbp <150, c/w nicardipine HD per renal, bumex per renal c/w vanc Zosyn start nepro start oral anti htn (will have to use alternatives for allergies?) will do clonidine aziza and prazosin (might be able to take ccb as taking nicardipine and no observed reaction) dc hydrocortisone diet nepro dvt ppx heprain gi ppx pepcid condition critical prognosis poor critical care time 45 minutes Plan discussed with: Patient My Orders Orders - DION ROSA MD Procedure Category Date Status Time Metanephrines Frac LAB 03/03/25 In Process Free Plasma 13:22 Senna Pod Tablet PHA 03/03/25 In Process (Senokot Tablet) 22:00 Polyethylene Glycol PHA 03/03/25 In Process 17g Powder (Miralax 18:40 Chest Xray 1 View XY 03/04/25 Resulted 04:00 Clonidine Hcl Tablet PHA 03/04/25 In Process (Catapres Tablet) 14:00 Carvedilol Tablet PHA 03/04/25 Transmitted (Coreg Tablet) 14:15 Carvedilol Tablet PHA 03/04/25 Transmitted (Coreg Tablet) 22:00 Date of Service: Mar 04, 2025 Billing Provider: DION ROSA MD Common Visit Codes: [id number] CARE 30-74 MIN DION ROSA MD Mar 04, 2025 14:21
--- NOTE | 2025-03-04 14:36 | DVHPN2 ---
Progress Note - Dictate Date Seen: Mar 04, 2025 Has the PT tested + for MRSA If YES, has PT been informed?: No Medical Necessity Reason Pt with a Central, PICC or Fol: Yes The following are medically ne: Noriega Catheter Reason for noriega catheter: Strict I&O Subjective Patient is intubated and sedated and on nicardipine drip at 5 milligrams/hour. Underwent HD today vital signs Vital Sign Date Time Temp Pulse Resp B/P (MAP) Pulse Ox O2 Delivery O2 Flow Rate FiO2 03/04/25 14:04 122 22 137/85 (102) 98 30 03/04/25 06:45 98.2 208.8 03/04/25 06:00 Mechanical Ventilator+ Total Intake and Output 03/03/25 03/03/25 03/04/25 15:00 23:00 07:00 Intake Total 657.76 ml 764.82 ml 747.04 ml Output Total 725 ml 700 ml Balance 657.76 ml 39.82 ml 47.04 ml medications Current Medications Medications Dose Ordered Sig/Shayan Route Start Time Stop Time Status Last Admin Dose Admin Aspirin 81 mg DAILY PO 02/22/25 10:00 03/04/25 10:20 81 MG Levothyroxine Sodium 50 mcg QAM@0600 PO 02/22/25 06:00 03/04/25 06:03 50 MCG Sodium Chloride 10 ml Q8HR IV 02/22/25 06:00 03/04/25 05:38 10 ML Famotidine 20 mg DAILY IV 02/22/25 10:00 03/04/25 10:28 20 MG Nicardipine/ Sodium Chloride 200 ml @ 50 mls/hr Q4H IV 02/22/25 06:00 03/04/25 14:03 100 MLS/HR Atorvastatin Calcium 20 mg HS PO 02/22/25 22:00 03/03/25 22:23 20 MG Hydromorphone HCl 1 mg Q6HPRN PRN PO 02/23/25 12:45 03/01/25 18:05 1 MG Propofol 100 ml @ 2.34 mls/hr Q24H IV 02/25/25 21:30 03/04/25 10:59 18.72 MLS/HR Midazolam HCl 50 ml @ 1 mls/hr Q24H IV 02/25/25 21:30 03/04/25 11:01 10 MLS/HR Fentanyl Citrate 250 ml @ 2.5 mls/hr Q24H IV 02/25/25 21:30 Hold Ipratropium [place] 0.5 mg Q4HR NEB 02/26/25 14:00 03/04/25 14:04 0.5 MG Piperacillin Sod/ Tazobactam Sod 100 ml @ 25 mls/hr Q12HR IV 02/26/25 22:00 03/04/25 10:23 25 MLS/HR Vancomycin HCl 0 ml @ 0 mls/hr UD IV 02/27/25 10:30 Heparin Sodium (Porcine) 5,000 units Q12HR SC 02/27/25 22:00 03/04/25 10:25 5,000 UNITS Diagnostic Test (Pha) 1 strip Q6HR 02/27/25 12:00 03/04/25 11:43 1 STRIP Insulin Human Regular Q6HR SC 02/27/25 12:00 02/27/25 18:00 2 UNITS Dextrose 50 ml UD PRN IV 02/27/25 11:45 Prazosin HCl 1 mg Q12HR PO 03/02/25 22:00 03/04/25 10:29 1 MG Enteral Nutritional Formula 1,000 ml 30ML/HR GT 03/03/25 09:30 03/03/25 14:56 1,000 ML Bumetanide 25 mg/ Miscellaneous 100 ml @ 2 mls/hr Q24H IV 03/03/25 16:30 03/03/25 17:16 2 MLS/HR Sennosides 8.6 mg HS PO 03/03/25 22:00 03/03/25 22:22 8.6 MG Polyethylene Glycol 17 gm DAILY PO 03/03/25 18:40 03/04/25 10:23 17 GM Clonidine HCl 0.2 mg Q8HR PO 03/04/25 14:00 Carvedilol 3.125 mg Q12HR PO 03/04/25 22:00 objective Patient is intubated and sedated. HEENT: Normocephalic Lungs: Bilateral good air entry CVS: S1, S2 tachycardic Abdomen: Mildly distended Extremities: No edema laboratory and microbiology Laboratory Tests 03/04/25 03:21 Test 03/04/25 03:21 Range/Units Serum Glucose 101 74-106 mg/dL Problem List Severe CHANDRA secondary to hypertensive crisis end organ damage CKD stage 4 is his baseline HTN emergency, patient has historically refused oral anti hypertensives due to multiple "allergies" and side effects Multiple cardiology and nephrology evaluations at [facility], [facility], etc have not helped him because he "cannot take any anti hypertensives orally" He was offered nephrectomy and HD at [facility] recently but declined He was sent for renal denervation and or osmar-receptor stimulation therapy but he could not get access to this Acute hypoxic respiratory failure on supplemental oxygen Pneumonia Bacteremia gram positive cocci elevated troponin, r/o NSTEMI h/o carotid artery stenosis s/p stent h/o TIA Hypothyroidism PTSD Assessment/Plan Hemodialysis TTS schedule Continue with nicardipine drip Continue with Bumex. We will decrease the rate to 0.25milligram/hour. We will continue to monitor for renal recovery Daily BMP Strict I&Os Patient has been started on Coreg and Prazosin Potassium replaced . Will f/up on K levels Dietary Evaluation Review Comments: 1) Initiate Nephro-Tayla @ 1 tb qd 2) If patient remains NPO > 7 days, consider EN/TPN to meet at least 75% of estimated daily needs 3) If GI route is preferred, consider Nepro CarbSteady @ 40 mL/hr goal rate as tolerated. EN regimen will provide 2222 kcals (including Propofol), 78g Pro, and 715 mL free H2O per 24 hrs. Goal rate will meet ~ 98% estimated daily energy needs and ~ 72% estimated daily protein needs 4) Advance to renal cardiac diet when medically feasible, pending ST approval 5) Follow-up with cardiology, pulmonology, and nephrology 6) Continue to monitor I&O, labs, and skin integrity Expected Outcomes/Goals: 1) patient to receive nutrition support within 7 days of NPO status 2) GI symptoms and labs to improve 3) diet to advance 4) f/u in 2-3 days Plan discussed with: ABENA Holt MD Mar 04, 2025 14:36
--- NOTE | 2025-03-04 15:03 | MEDREC ---
[facility] Intervention Section I [facility] Intervention: Deescalate AB based on CS (PLEASE CONSIDER DE-ESCALATION BASED ON CULTURE RESULTS) KIRSTIN MONTEZ PHARMACIST Mar 04, 2025 15:03
[2025-03-04] MEDS: BUMETANIDE INJECTION 25 MG in GIVE UN-DILUTED 0 ML IV SCH (15:31)
[2025-03-04] MEDS: CARVEDILOL 3.125 MG TAB PO ONE (15:32)
[2025-03-04] MEDS ORDERED: PROC10TA6 IM (16:50)
[2025-03-04] MEDS ORDERED: EPOETIN ALFA-EPBX 4,000 UNIT/ML VIAL SC ONE (21:00)
[2025-03-04] MEDS: CARVEDILOL 3.125 MG TAB PO SCH (21:46)
--- NOTE | 2025-03-04 23:17 | DVHPN2 ---
Progress Note - Dictate Date Seen: Mar 04, 2025 Has the PT tested + for MRSA If YES, has PT been informed?: No Medical Necessity Reason Pt with a Central, PICC or Fol: Yes The following are medically ne: Noirega Catheter Reason for noriega catheter: Strict I&O Subjective Patient seen and examined at bedside. Sedated, intubated on mechanical ventilator. Overnight events reviewed. vital signs Vital Sign Date Time Temp Pulse Resp B/P (MAP) Pulse Ox O2 Delivery O2 Flow Rate FiO2 03/04/25 23:00 98.2 110 16 116/71 (86) 95 98.2 03/04/25 22:03 30 03/04/25 22:00 Mechanical Ventilator+ Total Intake and Output 03/03/25 03/03/25 03/04/25 15:00 23:00 07:00 Intake Total 657.76 ml 764.82 ml 902.76 ml Output Total 725 ml 700 ml Balance 657.76 ml 39.82 ml 202.76 ml medications Current Medications Medications Dose Ordered Sig/Shayan Route Start Time Stop Time Status Last Admin Dose Admin Aspirin 81 mg DAILY PO 02/22/25 10:00 03/04/25 10:20 81 MG Levothyroxine Sodium 50 mcg QAM@0600 PO 02/22/25 06:00 03/04/25 06:03 50 MCG Sodium Chloride 10 ml Q8HR IV 02/22/25 06:00 03/04/25 22:03 10 ML Famotidine 20 mg DAILY IV 02/22/25 10:00 03/04/25 10:28 20 MG Atorvastatin Calcium 20 mg HS PO 02/22/25 22:00 03/04/25 21:46 20 MG Midazolam HCl 50 ml @ 1 mls/hr Q24H IV 02/25/25 21:30 03/04/25 22:04 10 MLS/HR Fentanyl Citrate 250 ml @ 2.5 mls/hr Q24H IV 02/25/25 21:30 Hold Ipratropium [place] 0.5 mg Q4HR NEB 02/26/25 14:00 03/04/25 22:03 0.5 MG Piperacillin Sod/ Tazobactam Sod 100 ml @ 25 mls/hr Q12HR IV 02/26/25 22:00 03/04/25 21:46 25 MLS/HR Vancomycin HCl 0 ml @ 0 mls/hr UD IV 02/27/25 10:30 Heparin Sodium (Porcine) 5,000 units Q12HR SC 02/27/25 22:00 03/04/25 21:47 5,000 UNITS Diagnostic Test (Pha) 1 strip Q6HR 02/27/25 12:00 03/04/25 17:51 1 STRIP Insulin Human Regular Q6HR SC 02/27/25 12:00 02/27/25 18:00 2 UNITS Dextrose 50 ml UD PRN IV 02/27/25 11:45 Prazosin HCl 1 mg Q12HR PO 03/02/25 22:00 03/04/25 22:03 1 MG Enteral Nutritional Formula 1,000 ml 30ML/HR GT 03/03/25 09:30 03/03/25 14:56 1,000 ML Sennosides 8.6 mg HS PO 03/03/25 22:00 03/04/25 21:46 8.6 MG Polyethylene Glycol 17 gm DAILY PO 03/03/25 18:40 03/04/25 10:23 17 GM Clonidine HCl 0.2 mg Q8HR PO 03/04/25 14:00 03/04/25 21:46 0.2 MG Carvedilol 3.125 mg Q12HR PO 03/04/25 22:00 03/04/25 21:46 3.125 MG Bumetanide 25 mg/ Miscellaneous 100 ml @ 1 mls/hr Q24H IV 03/04/25 14:30 03/04/25 15:31 1 MLS/HR Nicardipine HCl 250 ml @ 50 mls/hr Q5H IV 03/04/25 16:15 03/04/25 21:07 100 MLS/HR Propofol 100 ml @ 2.679 mls/ hr Q24H IV 03/04/25 21:45 objective Gen.: Patient lying in bed in medical ICU. Sedated, intubated on mechanical ventilator. Head: Normocephalic, atraumatic. Eyes: PERRLA. Ears: Normal external anatomy. Throat: Endotracheal tube and orogastric tube in place. Neck: Supple, trachea midline. Chest: Transmitted breath sounds bilaterally. Decreased air entry bilaterally. No wheezing. Bibasilar crackles. Cardiovascular: Positive S1, positive S2. Regular rate and rhythm. Abdomen: Positive bowel sounds in all 4 quadrants. Soft, nontender, nondistended. : Noriega in place. Normal external genitalia. Rectal: Deferred. Skin: Warm, dry. Intact. Extremities: 2+ radial pulses bilaterally. No lower extremity edema. Neuro: Sedated. laboratory and microbiology Laboratory Tests 03/04/25 03:21 Test 03/04/25 03:21 Range/Units Serum Glucose 101 74-106 mg/dL Assessment/Plan Impression: Acute hypoxemic respiratory failure On mechanical ventilator Fluid overload Pneumonia Atelectasis Pulmonary edema Anemia ESRD, on hemodialysis Events: Remains on vent support AC mode; RR 22, tidal volume 500, PEEP 5, FiO2 30% Sedated on Propofol. CXR reviewed; reveals stable bibasilar pulmonary airspace disease and minimal left pleural effusion. ABG reviewed, notable for alkalemia. Hemodialysis per Nephrology - 3 L removed yesterday Plan for HD tomorrow On Nicardipine drip for blood pressure control. Adjusting PO medications for BP control. Sputum culture positive for MRSA Continue antibiotics WBC within normal limits Blood cultures show no growth after 5 days Continue bronchodilators Monitor hemoglobin, trended up to to 8.2 g/dL HD per Nephrology Nephrology recs appreciated Diurese w/ Bumex drip. Monitor renal function Monitor electrolytes. Supplement as needed Potassium supplementation Monitor UOP. Monitor ins and outs. Tube feeds for nutritional support SBT/RIVKA. Taper sedation as tolerated Precedex drip OK for agitation. CPAP trial with PS 8, PEEP of 5 Bronchoscopy was performed 02/26/25 for pulmonary toileting -see separate note for procedure in detail Labs and imaging reviewed Plan: On mechanical ventilation S/p intubation Titrate to maintain sats 90% or above Antibiotics Bronchodilators Monitor hemoglobin Transfuse if less than 7.0 g/dL. Monitor renal function F/u nephrology Management deferred HD per Nephrology Monitor electrolytes. Supplement as needed Maintain euvolemia Pressors as needed for hemodynamic support To maintain a mean arterial pressure of 65 mmHg DVT prophylaxis Prognosis: Poor given patient's multiple co-morbidities. Condition: Critical Rest of plan per hospitalist and other consultants. A total of 35 minutes of critical care time was spent reviewing the patient record, examining the patient, making a diagnostic and therapeutic plan, discussing this plan with the medical personnel, following up on diagnostic studies and following the patient for clinical stability excluding any and all procedures. At least 50% of this time was spent in direct, [id number] contact. Thank you, Dr. Bass, for allowing me to participate in this patient's care. Further recommendations will depend on the patient's clinical course. Please do not hesitate to contact me if you have any questions or concerns. This medical document was created using an electronic medical record system with [employer] dictation system. Although these documentations are being carefully reviewed, there may still be some phonetic and typographical changes. The errors are purely typographical, due to imperfection on the software program, and do not reflect any compromise in the patient's medical care. Dietary Evaluation Review Comments: 1) Initiate Nephro-Tayla @ 1 tb qd 2) If patient remains NPO > 7 days, consider EN/TPN to meet at least 75% of estimated daily needs 3) If GI route is preferred, consider Nepro CarbSteady @ 40 mL/hr goal rate as tolerated. EN regimen will provide 2222 kcals (including Propofol), 78g Pro, and 715 mL free H2O per 24 hrs. Goal rate will meet ~ 98% estimated daily energy needs and ~ 72% estimated daily protein needs 4) Advance to renal cardiac diet when medically feasible, pending ST approval 5) Follow-up with cardiology, pulmonology, and nephrology 6) Continue to monitor I&O, labs, and skin integrity Expected Outcomes/Goals: 1) patient to receive nutrition support within 7 days of NPO status 2) GI symptoms and labs to improve 3) diet to advance 4) f/u in 2-3 days Plan discussed with: Other (HEIDY Bone) Critical Care Time(min): 35 BÁRBARA FISH MD Mar 04, 2025 23:17
[2025-03-04] MEDS: PROPOFOL 100 ML IV SCH (23:22)
[2025-03-05] VITALS (108 sets, daily range): BP systolic 100–196; BP diastolic 68–122; PULSE 101–119; RESP 12–28; TEMP 97–99.3; O2SAT 91–100
[2025-03-05 04:12] LABS: Hemoglobin 8.4 g/dL (13.5-17.5)
[2025-03-05 04:15] LABS: Hematocrit 22.4 % (41.0-53.0); Mean Corpuscular Hemoglobin 33.0 pg (28.0-32.0); Mean Corpuscular Volume 88.0 fL (80.0-100.0); Nucleated Red Blood Cells % 0.1 %
[2025-03-05 04:20] LABS: Anion Gap 17 (5-15); Carbon Dioxide 23 mmol/L (20-31); Chloride 99 mmol/L (98-107); Potassium 3.8 mmol/L (3.5-5.1); Sodium 139 mmol/L (136-145)
[2025-03-05 04:25] LABS: Calcium 8.0 mg/dL (8.7-10.4)
[2025-03-05 04:26] LABS: BUN/Creatinine Ratio 10.1 (10.0-20.0); Glucose 93 mg/dL (74-106)
[2025-03-05 04:27] LABS: Magnesium 2.2 mg/dL (1.6-2.6)
[2025-03-05 04:29] LABS: Blood Urea Nitrogen 53 mg/dL (9-23)
[2025-03-05] MEDS: SODIUM CHL 0.9% 1000 ML BAG XX ONE (07:00)
--- NOTE | 2025-03-05 09:22 | DVHPN2 ---
Progress Note - Dictate Date Seen: Mar 05, 2025 Has the PT tested + for MRSA If YES, has PT been informed?: No Medical Necessity Reason Pt with a Central, PICC or Fol: Yes The following are medically ne: Noriega Catheter Reason for noriega catheter: Strict I&O Subjective Patient is intubated and sedated and on nicardipine drip at 5 milligrams/hour. vital signs Vital Sign Date Time Temp Pulse Resp B/P (MAP) Pulse Ox O2 Delivery O2 Flow Rate FiO2 03/05/25 07:49 114 25 143/84 (103) 95 30 03/05/25 06:30 97.7 207.9 03/05/25 06:00 Mechanical Ventilator+ Total Intake and Output 03/04/25 03/04/25 03/05/25 15:00 23:00 07:00 Intake Total 1276.04 ml 1549.320 ml 1137.024 ml Output Total 0 ml 650 ml 700 ml Balance 1276.04 ml 899.320 ml 437.024 ml medications Current Medications Medications Dose Ordered Sig/Shayan Route Start Time Stop Time Status Last Admin Dose Admin Aspirin 81 mg DAILY PO 02/22/25 10:00 03/04/25 10:20 81 MG Levothyroxine Sodium 50 mcg QAM@0600 PO 02/22/25 06:00 03/05/25 05:35 50 MCG Sodium Chloride 10 ml Q8HR IV 02/22/25 06:00 03/05/25 05:39 10 ML Famotidine 20 mg DAILY IV 02/22/25 10:00 03/04/25 10:28 20 MG Atorvastatin Calcium 20 mg HS PO 02/22/25 22:00 03/04/25 21:46 20 MG Midazolam HCl 50 ml @ 1 mls/hr Q24H IV 02/25/25 21:30 03/05/25 05:51 10 MLS/HR Fentanyl Citrate 250 ml @ 2.5 mls/hr Q24H IV 02/25/25 21:30 Hold Ipratropium [place] 0.5 mg Q4HR NEB 02/26/25 14:00 03/05/25 06:13 0.5 MG Piperacillin Sod/ Tazobactam Sod 100 ml @ 25 mls/hr Q12HR IV 02/26/25 22:00 03/04/25 21:46 25 MLS/HR Vancomycin HCl 0 ml @ 0 mls/hr UD IV 02/27/25 10:30 Heparin Sodium (Porcine) 5,000 units Q12HR SC 02/27/25 22:00 03/04/25 21:47 5,000 UNITS Diagnostic Test (Pha) 1 strip Q6HR 02/27/25 12:00 03/05/25 05:35 1 STRIP Insulin Human Regular Q6HR SC 02/27/25 12:00 03/05/25 00:00 2 UNITS Dextrose 50 ml UD PRN IV 02/27/25 11:45 Prazosin HCl 1 mg Q12HR PO 03/02/25 22:00 03/04/25 22:03 1 MG Enteral Nutritional Formula 1,000 ml 30ML/HR GT 03/03/25 09:30 03/03/25 14:56 1,000 ML Sennosides 8.6 mg HS PO 03/03/25 22:00 03/04/25 21:46 8.6 MG Polyethylene Glycol 17 gm DAILY PO 03/03/25 18:40 03/04/25 10:23 17 GM Clonidine HCl 0.2 mg Q8HR PO 03/04/25 14:00 03/05/25 05:34 0.2 MG Carvedilol 3.125 mg Q12HR PO 03/04/25 22:00 03/04/25 21:46 3.125 MG Bumetanide 25 mg/ Miscellaneous 100 ml @ 1 mls/hr Q24H IV 03/04/25 14:30 03/04/25 15:31 1 MLS/HR Nicardipine HCl 250 ml @ 50 mls/hr Q5H IV 03/04/25 16:15 03/05/25 07:07 50 MLS/HR Propofol 100 ml @ 2.679 mls/ hr Q24H IV 03/04/25 21:45 03/05/25 06:45 21.432 MLS/HR objective Patient is intubated and sedated. HEENT: Normocephalic Lungs: Bilateral good air entry CVS: S1, S2 tachycardic Abdomen: Mildly distended Extremities: No edema laboratory and microbiology Laboratory Tests 03/05/25 03:45 Test 03/05/25 03:45 Range/Units Serum Glucose 93 74-106 mg/dL Problem List Severe CHANDRA secondary to hypertensive crisis end organ damage CKD stage 4 is his baseline HTN emergency, patient has historically refused oral anti hypertensives due to multiple "allergies" and side effects Multiple cardiology and nephrology evaluations at [facility], [facility], etc have not helped him because he "cannot take any anti hypertensives orally" He was offered nephrectomy and HD at [facility] recently but declined He was sent for renal denervation and or osmar-receptor stimulation therapy but he could not get access to this Acute hypoxic respiratory failure on supplemental oxygen Pneumonia Bacteremia gram positive cocci elevated troponin, r/o NSTEMI h/o carotid artery stenosis s/p stent h/o TIA Hypothyroidism PTSD Assessment/Plan Hemodialysis TTS schedule Continue with nicardipine drip and taper Uptitrate oral antihypertensives Continue with Bumex. Decrease Bumex to 2 mg IV BID We will continue to monitor for renal recovery Daily BMP Strict I&Os Dietary Evaluation Review Comments: 1) Initiate Nephro-Tayla @ 1 tb qd 2) If patient remains NPO > 7 days, consider EN/TPN to meet at least 75% of estimated daily needs 3) If GI route is preferred, consider Nepro CarbSteady @ 40 mL/hr goal rate as tolerated. EN regimen will provide 2222 kcals (including Propofol), 78g Pro, and 715 mL free H2O per 24 hrs. Goal rate will meet ~ 98% estimated daily energy needs and ~ 72% estimated daily protein needs 4) Advance to renal cardiac diet when medically feasible, pending ST approval 5) Follow-up with cardiology, pulmonology, and nephrology 6) Continue to monitor I&O, labs, and skin integrity Expected Outcomes/Goals: 1) patient to receive nutrition support within 7 days of NPO status 2) GI symptoms and labs to improve 3) diet to advance 4) f/u in 2-3 days Plan discussed with: ABENA Holt MD Mar 05, 2025 09:22
[2025-03-05] MEDS ORDERED: BUMETANIDE 2.5mg/10ml (0.25 mg/ml) INJ IV ONE (10:00)
--- NOTE | 2025-03-05 11:09 | DVH ---
EXAM: XY CHEST PORTABLE Indication: pt intubated Technique: Single frontal view of the chest was obtained Comparison: XY CHEST XRAY 1 VIEW on DOS: 03/04/25, XY CHEST PORTABLE on DOS: 03/03/25, XY CHEST PORTABL E on DOS: 03/02/25, XY CHEST PORTABLE on DOS: 03/01/25, XY CHEST PORTABLE on DOS: 02/28/25, XY CHEST XRA Y 1 VIEW on DOS: 03/04/25 FINDINGS: Lines and Tubes: Unchanged. Lungs: Stable appearing bibasilar pulmonary airspace disease and minimal left pleural effusion. No pneumothorax. Cardiomediastinal contours: Unchanged. Bones: Unremarkable IMPRESSION: No significant change compared to prior exam.
--- NOTE | 2025-03-05 12:25 | DVHPN2 ---
Assessment/Plan Assessment/Plan ICU note 54 M with resistant HTN (with noted allergies but reported making him feel "very sick", no anaphylaxis hx), CKD4, carotid artery stenosis s/p stenting, TIAs, thyroid disease. intubated for acute hypoxic RF 2/2 pulm edema. currently on HD. clean coronaries in 2022. prior plan for BAT and renal denervations. seen today. called on the phone, updated on current bp med list of prazosin clonidine and coreg. increasing coreg dose physical exam intubated, sedated on mech vent PERLLA moving to pain s1 s2 rrr mechanical breath sounds abdomen soft trace le edema labs ekg imaging reviewed assessment and plan acute hypoxic RF req mech vent aspiration PNA gp vs gn CHANDRA ATN on CKD on HD HTN emergency pulmonary edema type 2 [place] demand ischemia and decreased renal clearance GPC bacteremia c/w mech vent daily SAT SBT maintain sbp <150, c/w nicardipine HD per renal, bumex per renal c/w vanc Zosyn start nepro start oral anti htn (will have to use alternatives for allergies?) will do clonidine aziza and prazosin (might be able to take ccb as taking nicardipine and no observed reaction) dc hydrocortisone diet nepro dvt ppx heprain gi ppx pepcid condition critical prognosis poor critical care time 45 minutes Plan discussed with: Spouse My Orders Orders - DION ROSA MD Procedure Category Date Status Time Carvedilol Tablet PHA 03/04/25 In Process (Coreg Tablet) 22:00 Propofol (Diprivan) PHA 03/04/25 In Process 21:45 Chest Portable XY 03/05/25 Resulted 07:45 Date of Service: Mar 05, 2025 Billing Provider: DION ROSA MD Common Visit Codes: [id number] CARE 30-74 MIN DION ROSA MD Mar 05, 2025 12:25
[2025-03-05] MEDS: BUMETANIDE 2.5mg/10ml (0.25 mg/ml) INJ IV SCH (13:14)
[2025-03-05] MEDS: VANCOMYCIN 500mg/100mL 100 ML IV ONE (15:00)
[2025-03-05 15:29] LABS: Base Excess 5.3 mmol/L (-2.0-3.0)
[2025-03-05] MEDS: EPOETIN ALFA-EPBX 10,000 UNIT/1ML VIAL SC ONE (21:31)
[2025-03-05] MEDS: CARVEDILOL 3.125 MG TAB PO SCH (21:37)
[2025-03-05] MEDS: PRAZOSIN HCL 1 MG CAP PO SCH (22:23)
--- NOTE | 2025-03-05 23:49 | DVHPN2 ---
Progress Note - Dictate Date Seen: Mar 05, 2025 Has the PT tested + for MRSA If YES, has PT been informed?: No Medical Necessity Reason Pt with a Central, PICC or Fol: Yes The following are medically ne: Noriega Catheter Reason for noriega catheter: Strict I&O Subjective Patient seen and examined at bedside. Sedated, intubated on mechanical ventilator. Overnight events reviewed. vital signs Vital Sign Date Time Temp Pulse Resp B/P (MAP) Pulse Ox O2 Delivery O2 Flow Rate FiO2 03/05/25 23:11 104 128/69 03/05/25 22:30 99.1 22 95 210.4 03/05/25 22:09 30 03/05/25 22:00 Mechanical Ventilator+ Total Intake and Output 03/04/25 03/04/25 03/05/25 15:00 23:00 07:00 Intake Total 1276.04 ml 1549.320 ml 1219.456 ml Output Total 0 ml 650 ml 700 ml Balance 1276.04 ml 899.320 ml 519.456 ml medications Current Medications Medications Dose Ordered Sig/Shayan Route Start Time Stop Time Status Last Admin Dose Admin Aspirin 81 mg DAILY PO 02/22/25 10:00 03/05/25 13:18 81 MG Levothyroxine Sodium 50 mcg QAM@0600 PO 02/22/25 06:00 03/05/25 05:35 50 MCG Sodium Chloride 10 ml Q8HR IV 02/22/25 06:00 03/05/25 21:39 10 ML Famotidine 20 mg DAILY IV 02/22/25 10:00 03/05/25 13:17 20 MG Atorvastatin Calcium 20 mg HS PO 02/22/25 22:00 03/05/25 21:33 20 MG Midazolam HCl 50 ml @ 1 mls/hr Q24H IV 02/25/25 21:30 03/05/25 18:44 10 MLS/HR Fentanyl Citrate 250 ml @ 2.5 mls/hr Q24H IV 02/25/25 21:30 Hold Ipratropium [place] 0.5 mg Q4HR NEB 02/26/25 14:00 03/05/25 22:09 0.5 MG Piperacillin Sod/ Tazobactam Sod 100 ml @ 25 mls/hr Q12HR IV 02/26/25 22:00 03/05/25 21:31 25 MLS/HR Vancomycin HCl 0 ml @ 0 mls/hr UD IV 02/27/25 10:30 Heparin Sodium (Porcine) 5,000 units Q12HR SC 02/27/25 22:00 03/05/25 21:38 5,000 UNITS Diagnostic Test (Pha) 1 strip Q6HR 02/27/25 12:00 03/05/25 18:00 1 STRIP Insulin Human Regular Q6HR SC 02/27/25 12:00 03/05/25 18:48 2 UNITS Dextrose 50 ml UD PRN IV 02/27/25 11:45 Enteral Nutritional Formula 1,000 ml 30ML/HR GT 03/03/25 09:30 03/03/25 14:56 1,000 ML Sennosides 8.6 mg HS PO 03/03/25 22:00 03/05/25 21:33 8.6 MG Polyethylene Glycol 17 gm DAILY PO 03/03/25 18:40 03/05/25 10:24 17 GM Clonidine HCl 0.2 mg Q8HR PO 03/04/25 14:00 03/05/25 21:32 0.2 MG Nicardipine HCl 250 ml @ 50 mls/hr Q5H IV 03/04/25 16:15 03/05/25 23:11 100 MLS/HR Propofol 100 ml @ 2.679 mls/ hr Q24H IV 03/04/25 21:45 03/05/25 18:45 21.432 MLS/HR Bumetanide 2 mg BID IV 03/05/25 10:00 03/05/25 21:30 2 MG Carvedilol 6.25 mg Q12HR PO 03/05/25 22:00 03/05/25 21:37 6.25 MG Prazosin HCl 1 mg Q12HR PO 03/05/25 22:00 03/05/25 22:23 1 MG objective Gen.: Patient lying in bed in medical ICU. Sedated, intubated on mechanical ventilator. Head: Normocephalic, atraumatic. Eyes: PERRLA. Ears: Normal external anatomy. Throat: Endotracheal tube and orogastric tube in place. Neck: Supple, trachea midline. Chest: Transmitted breath sounds bilaterally. Decreased air entry bilaterally. No wheezing. Bibasilar crackles. Cardiovascular: Positive S1, positive S2. Regular rate and rhythm. Abdomen: Positive bowel sounds in all 4 quadrants. Soft, nontender, nondistended. : Noriega in place. Normal external genitalia. Rectal: Deferred. Skin: Warm, dry. Intact. Extremities: 2+ radial pulses bilaterally. No lower extremity edema. Neuro: Sedated. laboratory and microbiology Laboratory Tests 03/05/25 03:45 Test 03/05/25 03:45 Range/Units Serum Glucose 93 74-106 mg/dL Assessment/Plan Impression: Acute hypoxemic respiratory failure On mechanical ventilator Fluid overload Pneumonia Atelectasis Pulmonary edema Anemia ESRD, on hemodialysis Events: Remains on vent support AC mode; RR 22, tidal volume 500, PEEP 5, FiO2 30% Sedated on Propofol/Versed. CXR reviewed; reveals bibasilar opacities. Devices in place. ABG reviewed, notable for alkalemia. Hemodialysis per Nephrology - s/p HD today. Continue tube feeds for nutritional support Patient had 2 BMs On Nicardipine drip for blood pressure control. Adjusting PO medications for BP control. Continue antibiotics WBC within normal limits Blood cultures show no growth after 5 days Sputum culture positive for MRSA. Continue bronchodilators Monitor hemoglobin, stable at 8.4 g/dL HD per Nephrology Nephrology recs appreciated Diurese - Discontinue Bumex drip and start Bumex PO BID. Monitor renal function Monitor electrolytes. Supplement as needed Monitor UOP. Monitor ins and outs. SBT/RIVKA. Taper sedation as tolerated Precedex drip OK for agitation. CPAP trial with PS 8, PEEP of 5 Bronchoscopy was performed 02/26/25 for pulmonary toileting -see separate note for procedure in detail Labs and imaging reviewed Plan: On mechanical ventilation S/p intubation Titrate to maintain sats 90% or above Antibiotics Follow up cultures Bronchodilators Monitor hemoglobin Transfuse if less than 7.0 g/dL. Accu-Cheks, ISS prn. Monitor renal function F/u nephrology Management deferred HD per Nephrology Monitor electrolytes. Supplement as needed Maintain euvolemia Pressors as needed for hemodynamic support To maintain a mean arterial pressure of 65 mmHg DVT prophylaxis Prognosis: Poor given patient's multiple co-morbidities. Condition: Critical Rest of plan per hospitalist and other consultants. A total of 35 minutes of critical care time was spent reviewing the patient record, examining the patient, making a diagnostic and therapeutic plan, discussing this plan with the medical personnel, following up on diagnostic studies and following the patient for clinical stability excluding any and all procedures. At least 50% of this time was spent in direct, [id number] contact. Thank you, Dr. Bass, for allowing me to participate in this patient's care. Further recommendations will depend on the patient's clinical course. Please do not hesitate to contact me if you have any questions or concerns. This medical document was created using an electronic medical record system with [employer] dictation system. Although these documentations are being carefully reviewed, there may still be some phonetic and typographical changes. The errors are purely typographical, due to imperfection on the software program, and do not reflect any compromise in the patient's medical care. Dietary Evaluation Review Comments: 1) Initiate Nephro-Tayla @ 1 tb qd 2) If patient remains NPO > 7 days, consider EN/TPN to meet at least 75% of estimated daily needs 3) If GI route is preferred, consider Nepro CarbSteady @ 40 mL/hr goal rate as tolerated. EN regimen will provide 2222 kcals (including Propofol), 78g Pro, and 715 mL free H2O per 24 hrs. Goal rate will meet ~ 98% estimated daily energy needs and ~ 72% estimated daily protein needs 4) Advance to renal cardiac diet when medically feasible, pending ST approval 5) Follow-up with cardiology, pulmonology, and nephrology 6) Continue to monitor I&O, labs, and skin integrity Expected Outcomes/Goals: 1) patient to receive nutrition support within 7 days of NPO status 2) GI symptoms and labs to improve 3) diet to advance 4) f/u in 2-3 days Plan discussed with: Other (HEIDY Sanabria) Critical Care Time(min): 35 BÁRBARA FISH MD Mar 05, 2025 23:49
[2025-03-06] VITALS (107 sets, daily range): BP systolic 110–163; BP diastolic 62–102; PULSE 97–114; RESP 16–27; TEMP 97.5–99.7; O2SAT 94–97
[2025-03-06 04:02] LABS: Hematocrit 23.6 % (41.0-53.0); Hemoglobin 8.8 g/dL (13.5-17.5); Mean Corpuscular Volume 87.3 fL (80.0-100.0); Nucleated Red Blood Cells % 0.0 %
[2025-03-06 04:05] LABS: Mean Corpuscular Hemoglobin 32.7 pg (28.0-32.0)
[2025-03-06 04:16] LABS: Anion Gap 12 (5-15); Carbon Dioxide 26 mmol/L (20-31); Potassium 4.1 mmol/L (3.5-5.1)
[2025-03-06 04:22] LABS: BUN/Creatinine Ratio 9.2 (10.0-20.0); Glucose 102 mg/dL (74-106)
[2025-03-06 04:35] LABS: Blood Urea Nitrogen 44 mg/dL (9-23); Calcium 8.0 mg/dL (8.7-10.4); Chloride 96 mmol/L (98-107); Sodium 134 mmol/L (136-145)
[2025-03-06 06:28] LABS: Base Excess 1.4 mmol/L (-2.0-3.0)
--- NOTE | 2025-03-06 06:52 | DVH ---
CHEST RADIOGRAPH Indication: intubation Technique: Single frontal view of the chest was obtained Comparison: XY CHEST PORTABLE on DOS: 03/05/25 FINDINGS: Lines and Tubes: There is a right central venous catheter with the tip terminating in the superior ve na cava. Enteric tube terminates at the level of the gastroesophageal junction. The endotracheal tub e terminates 5.2 cm above the ivan. Lungs: Bibasilar airspace disease, unchanged. Pleura: Left pleural effusion is unchanged. No pneumothorax. Cardiomediastinal contours: Stable. Bones: No acute osseous abnormality. IMPRESSION: 1. Enteric tube is shallow and positioned with its tip terminating in the gastroesophageal junction. Advancement by about 10 cm is recommended. Other lines and tubes are unchanged. 2. Bibasilar airspace disease and left pleural effusion similar to prior study.
--- NOTE | 2025-03-06 14:15 | DVHPN2 ---
Subjective seen today. called on the phone, Reviewed: Care Plan, H&P, Labs, Medications, Previous Orders, Radiology Changes from previous H/P or p: No Changes General: Per HPI Eyes: No Pain, No Vision change, No Conjunctivae inflammation, No Eyelid inflammation, No Other, No Redness ENT: No Ear pain, No Ear discharge, No Nose pain, No Nose discharge, No Nose congestion, No Mouth pain, No Mouth swelling, No Throat pain, No Throat swelling, No Other Cardiovascular: Chest Pain; No Palpitations, No Orthopnea, No Paroxysmal Noc. Dyspnea, No Edema, No Lt Headedness; Other (Hypertension) Respiratory: No Cough, No Dry, No Shortness of breath, No SOB with excertion, No Wheezing, No Hemoptysis, No Pleuritic Pain, No Sputum, No Other Gastrointestinal: No Nausea, No Vomiting, No Abdominal Pain, No Diarrhea, No Constipation, No Melena, No Hematochezia, No Other Genitourinary: No Dysuria, No Frequency, No Incontinence, No Hematuria, No Retention, No Other Musculoskeletal: No other; neck pain; No shoulder pain, No arm pain, No back pain, No hand pain, No leg pain, No foot pain Skin: No Rash, No Lesions, No Jaundice, No Bruising, No Other Objective Vitals Vital Signs Date Time Temp Pulse Resp B/P (MAP) Pulse Ox O2 Delivery O2 Flow Rate FiO2 03/06/25 13:55 156/97 03/06/25 11:59 112 24 96 30 03/06/25 10:00 98.2 208.8 03/06/25 08:00 Mechanical Ventilator+ Intake/Output Intake and Output 03/06/25 07:00 Intake Total 3492.208 ml Output Total 850 ml Balance 2642.208 ml Intake Oral 120 ml IV Total 2764.208 ml Tube Feeding 608 ml Output Urine Total 850 ml Stool Total 0 ml # Bowel Movements 2 Exam physical exam intubated, sedated on mech vent PERLLA moving to pain s1 s2 rrr mechanical breath sounds abdomen soft trace le edema General Appearance: Other (intubated and sedated) HEENT: Atraumatic, PERRLA, EOMI, Mucous membr. moist/pink Neck: Supple Lungs: Other (decreased sounds) Cardiovascular: Regular rate, Normal S1, Normal S2 Abdomen: Normal bowel sounds, Soft, No tenderness Extremities: Normal pulses Psych/Mental Status: Mental status NL Medications Current Medications Medications Dose Ordered Sig/Shayan Route Start Time Stop Time Status Last Admin Dose Admin Aspirin 81 mg DAILY PO 02/22/25 10:00 03/06/25 10:52 81 MG Levothyroxine Sodium 50 mcg QAM@0600 PO 02/22/25 06:00 03/06/25 05:42 50 MCG Sodium Chloride 10 ml Q8HR IV 02/22/25 06:00 03/06/25 13:56 10 ML Famotidine 20 mg DAILY IV 02/22/25 10:00 03/06/25 10:52 20 MG Atorvastatin Calcium 20 mg HS PO 02/22/25 22:00 03/05/25 21:33 20 MG Midazolam HCl 50 ml @ 1 mls/hr Q24H IV 02/25/25 21:30 03/06/25 13:55 10 MLS/HR Fentanyl Citrate 250 ml @ 2.5 mls/hr Q24H IV 02/25/25 21:30 Hold Ipratropium [place] 0.5 mg Q4HR NEB 02/26/25 14:00 03/06/25 09:58 0.5 MG Piperacillin Sod/ Tazobactam Sod 100 ml @ 25 mls/hr Q12HR IV 02/26/25 22:00 03/06/25 10:53 25 MLS/HR Vancomycin HCl 0 ml @ 0 mls/hr UD IV 02/27/25 10:30 Heparin Sodium (Porcine) 5,000 units Q12HR SC 02/27/25 22:00 03/06/25 10:00 5,000 UNITS Diagnostic Test (Pha) 1 strip Q6HR 02/27/25 12:00 03/06/25 12:00 1 STRIP Insulin Human Regular Q6HR SC 02/27/25 12:00 03/05/25 18:48 2 UNITS Dextrose 50 ml UD PRN IV 02/27/25 11:45 Enteral Nutritional Formula 1,000 ml 30ML/HR GT 03/03/25 09:30 03/03/25 14:56 1,000 ML Sennosides 8.6 mg HS PO 03/03/25 22:00 03/05/25 21:33 8.6 MG Polyethylene Glycol 17 gm DAILY PO 03/03/25 18:40 03/06/25 10:51 17 GM Clonidine HCl 0.2 mg Q8HR PO 03/04/25 14:00 03/06/25 05:42 0.2 MG Nicardipine HCl 250 ml @ 50 mls/hr Q5H IV 03/04/25 16:15 03/06/25 10:49 25 MLS/HR Propofol 100 ml @ 2.679 mls/ hr Q24H IV 03/04/25 21:45 03/06/25 13:55 21.432 MLS/HR Bumetanide 2 mg BID IV 03/05/25 10:00 03/06/25 10:53 2 MG Carvedilol 6.25 mg Q12HR PO 03/05/25 22:00 03/06/25 10:52 6.25 MG Prazosin HCl 1 mg Q12HR PO 03/05/25 22:00 03/06/25 10:51 1 MG Laboratory Results Laboratory Tests 03/06/25 03:00 Chemistry Test 03/06/25 03:00 Calcium Level 8.0 mg/dL (8.7-10.4) L Urinalysis Test 02/26/25 02:00 Urine Color Light-yellow (Yellow) Urine Clarity Turbid (Clear) H Urine pH 5.0 (5.0-9.0) Urine Specific [place] 1.011 (1.001-1.035) Urine Protein 1+ (Negative) H Urine Ketones Negative (Negative) Urine Blood Trace /uL (Negative) H Urine Nitrite Negative (Negative) Urine Bilirubin Negative (Negative) Urine Urobilinogen Normal mg/dL (Negative) Urine Leukocyte Esterase Negative /uL (Negative) Urine RBC 1 /hpf (0 - 3) Urine Microscopic WBC 4 /HPF (0-3) H Urine Squamous Epithelial Cells Few /hpf (<5) Urine Amorphous Crystals Few /hpf (None Seen) Urine Bacteria Few /hpf (None Seen) H Urine Glucose Normal mg/dL (Normal) Blood Gas Results Test 03/05/25 15:15 03/06/25 06:20 Arterial Blood pH 7.495 (7.350-7.450) 7.501 (7.350-7.450) FiO2 % 30.0 30.0 Microbiology Microbiology Date/Time Source Procedure Growth Status 02/26/25 11:38 Sputum Gram Stain - Final Complete 02/26/25 11:38 Respiratory Culture - Final Methicillin Resistant S.aureus Complete 02/26/25 02:00 Voided Urine Urine Culture - Final Complete 02/26/25 01:44 Blood Blood Culture - Final NO GROWTH AFTER 5 DAYS OF INCUBATION. Complete 02/25/25 20:15 Trachea Gram Stain - Final Complete 02/25/25 20:15 Trachea Respiratory Culture - Final Complete Labs and/or images reviewed: Labs reviewed by me, Image(s) reviewed by me Assessment/Plan Assessment/Plan ICU note 54 M with resistant HTN (with noted allergies but reported making him feel "very sick", no anaphylaxis hx), CKD4, carotid artery stenosis s/p stenting, TIAs, thyroid disease. intubated for acute hypoxic RF 2/2 pulm edema. currently on HD. clean coronaries in 2022. prior plan for BAT and renal denervations. 03/06/2025: seen today. called on the phone, we will go up on Coreg to 12.5 mg twice daily, start amlodipine daily, start daily CPAP sedation vacation tomorrow, none was done today. was worried that she now has MRSA. If continues to decline further changes despite no signs of allergies, this would likely be refusal of treatment situation, for today patient's has agreed. RN we will discuss with RT to see if we can possibly do CPAP while patient is continued on nicardipine drip. patient swelling legs and scrotum, will communicate with nephrology to achieve euvolemia. Nephrology wants to continue scheduled dialysis sessions and we will increase Bumex dose. continue with plan for cpap trial tomorrow. physical exam intubated, sedated on mech vent PERLLA moving to pain s1 s2 rrr mechanical breath sounds abdomen soft trace le edema labs ekg imaging reviewed assessment and plan acute hypoxic RF req mech vent aspiration PNA gp vs gn CHANDRA ATN on CKD on HD HTN emergency pulmonary edema type 2 MT demand ischemia and decreased renal clearance GPC bacteremia c/w mech vent daily SAT SBT maintain sbp <150, c/w nicardipine HD per renal, bumex per renal c/w vanc Zosyn start nepro start oral anti htn (will have to use alternatives for allergies?) will do clonidine shayan and prazosin (might be able to take ccb as taking nicardipine and no observed reaction). Now clonidine 0.2mg q8, Coreg 12.5 b.i.d., amlodipine5 mg daily (nifedipine XL CANNOT be crushed...) . Weaned down on nicardipine. dc hydrocortisone diet nepro dvt ppx heprain gi ppx pepcid condition critical prognosis poor critical care time 45 minutes Plan discussed with: Patient Date of Service: Mar 06, 2025 Billing Provider: RUBENS ONEILL MD Common Visit Codes: 15020-[id number] CARE 30-74 MIN RUBENS ONEILL MD Mar 06, 2025 14:15
--- NOTE | 2025-03-06 17:15 | DVHPN2 ---
Progress Note - Dictate Date Seen: Mar 06, 2025 Has the PT tested + for MRSA If YES, has PT been informed?: No Medical Necessity Reason Pt with a Central, PICC or Fol: Yes The following are medically ne: Noriega Catheter Reason for noriega catheter: Strict I&O Subjective Patient is intubated and sedated and on nicardipine drip at 5 milligrams/hour. vital signs Vital Sign Date Time Temp Pulse Resp B/P (MAP) Pulse Ox O2 Delivery O2 Flow Rate FiO2 03/06/25 16:07 110 23 139/82 (101) 96 30 03/06/25 15:30 99.5 211.1 03/06/25 14:00 Mechanical Ventilator+ Total Intake and Output 03/05/25 03/05/25 03/06/25 15:00 23:00 07:00 Intake Total 703.456 ml 1458.728 ml 1330.024 ml Output Total 0 ml 650 ml 200 ml Balance 703.456 ml 808.728 ml 1130.024 ml medications Current Medications Medications Dose Ordered Sig/Shayan Route Start Time Stop Time Status Last Admin Dose Admin Aspirin 81 mg DAILY PO 02/22/25 10:00 03/06/25 10:52 81 MG Levothyroxine Sodium 50 mcg QAM@0600 PO 02/22/25 06:00 03/06/25 05:42 50 MCG Sodium Chloride 10 ml Q8HR IV 02/22/25 06:00 03/06/25 13:56 10 ML Atorvastatin Calcium 20 mg HS PO 02/22/25 22:00 03/05/25 21:33 20 MG Midazolam HCl 50 ml @ 1 mls/hr Q24H IV 02/25/25 21:30 03/06/25 13:55 10 MLS/HR Fentanyl Citrate 250 ml @ 2.5 mls/hr Q24H IV 02/25/25 21:30 Hold Ipratropium [place] 0.5 mg Q4HR NEB 02/26/25 14:00 03/06/25 14:22 0.5 MG Piperacillin Sod/ Tazobactam Sod 100 ml @ 25 mls/hr Q12HR IV 02/26/25 22:00 03/06/25 10:53 25 MLS/HR Vancomycin HCl 0 ml @ 0 mls/hr UD IV 02/27/25 10:30 Heparin Sodium (Porcine) 5,000 units Q12HR SC 02/27/25 22:00 03/06/25 10:00 5,000 UNITS Diagnostic Test (Pha) 1 strip Q6HR 02/27/25 12:00 03/06/25 12:00 1 STRIP Insulin Human Regular Q6HR SC 02/27/25 12:00 03/05/25 18:48 2 UNITS Dextrose 50 ml UD PRN IV 02/27/25 11:45 Enteral Nutritional Formula 1,000 ml 30ML/HR GT 03/03/25 09:30 03/03/25 14:56 1,000 ML Sennosides 8.6 mg HS PO 03/03/25 22:00 03/05/25 21:33 8.6 MG Polyethylene Glycol 17 gm DAILY PO 03/03/25 18:40 03/06/25 10:51 17 GM Clonidine HCl 0.2 mg Q8HR PO 03/04/25 14:00 03/06/25 14:50 0.2 MG Nicardipine HCl 250 ml @ 50 mls/hr Q5H IV 03/04/25 16:15 03/06/25 10:49 25 MLS/HR Propofol 100 ml @ 2.679 mls/ hr Q24H IV 03/04/25 21:45 03/06/25 13:55 21.432 MLS/HR Bumetanide 2 mg BID IV 03/05/25 10:00 03/06/25 10:53 2 MG Carvedilol 6.25 mg Q12HR PO 03/05/25 22:00 03/06/25 10:52 6.25 MG Prazosin HCl 1 mg Q12HR PO 03/05/25 22:00 03/06/25 10:51 1 MG Mupirocin 1 applic BID EACHNOSTRI 03/06/25 22:00 03/11/25 21:59 Famotidine 10 mg EOD IV 03/08/25 10:00 objective Patient is intubated and sedated. HEENT: Normocephalic Lungs: Bilateral good air entry CVS: S1, S2 tachycardic Abdomen: Mildly distended Extremities: No edema laboratory and microbiology Laboratory Tests 03/06/25 03:00 Test 03/06/25 03:00 Range/Units Serum Glucose 102 74-106 mg/dL Problem List Severe CHANDRA secondary to hypertensive crisis end organ damage CKD stage 4 is his baseline HTN emergency, patient has historically refused oral anti hypertensives due to multiple "allergies" and side effects Multiple cardiology and nephrology evaluations at [facility], [facility], etc have not helped him because he "cannot take any anti hypertensives orally" He was offered nephrectomy and HD at [facility] recently but declined He was sent for renal denervation and or osmar-receptor stimulation therapy but he could not get access to this Acute hypoxic respiratory failure on supplemental oxygen Pneumonia Bacteremia gram positive cocci elevated troponin, r/o NSTEMI h/o carotid artery stenosis s/p stent h/o TIA Hypothyroidism PTSD Assessment/Plan Hemodialysis TTS schedule Continue with nicardipine drip and taper Uptitrate oral antihypertensives Continue with Bumex. Decrease Bumex to 2 mg IV BID We will continue to monitor for renal recovery Daily BMP Strict I&Os Dietary Evaluation Review Comments: 1) Initiate Nephro-Tayla @ 1 tb qd 2) If patient remains NPO > 7 days, consider EN/TPN to meet at least 75% of estimated daily needs 3) If GI route is preferred, consider Nepro CarbSteady @ 40 mL/hr goal rate as tolerated. EN regimen will provide 2222 kcals (including Propofol), 78g Pro, and 715 mL free H2O per 24 hrs. Goal rate will meet ~ 98% estimated daily energy needs and ~ 72% estimated daily protein needs 4) Advance to renal cardiac diet when medically feasible, pending ST approval 5) Follow-up with cardiology, pulmonology, and nephrology 6) Continue to monitor I&O, labs, and skin integrity Expected Outcomes/Goals: 1) patient to receive nutrition support within 7 days of NPO status 2) GI symptoms and labs to improve 3) diet to advance 4) f/u in 2-3 days Plan discussed with: ABENA Holt MD Mar 06, 2025 17:15
[2025-03-06] MEDS: DEXMEDETOMIDINE HCL IN D5W 100 ML IV SCH (17:45)
[2025-03-06] MEDS: CARVEDILOL 12.5 MG TAB PO SCH (21:32)
[2025-03-06] MEDS: BUMETANIDE 2.5mg/10ml (0.25 mg/ml) INJ IV SCH (21:34)
[2025-03-06] MEDS ORDERED: MUPIROCIN 2% OINT 15gm or 22gm FOR MRSA NARES EACHNOSTRI SCH (22:00)
--- NOTE | 2025-03-06 23:44 | DVHPN2 ---
Progress Note - Dictate Date Seen: Mar 06, 2025 Has the PT tested + for MRSA If YES, has PT been informed?: No Medical Necessity Reason Pt with a Central, PICC or Fol: Yes The following are medically ne: Noriega Catheter Reason for noriega catheter: Strict I&O Subjective Patient seen and examined at bedside. Sedated, intubated on mechanical ventilator. Overnight events reviewed. vital signs Vital Sign Date Time Temp Pulse Resp B/P (MAP) Pulse Ox O2 Delivery O2 Flow Rate FiO2 03/06/25 23:41 131/80 03/06/25 22:32 100 03/06/25 22:11 27 95 30 03/06/25 20:45 98.6 209.5 03/06/25 20:00 Mechanical Ventilator+ Total Intake and Output 03/05/25 03/05/25 03/06/25 15:00 23:00 07:00 Intake Total 703.456 ml 1458.728 ml 1330.024 ml Output Total 0 ml 650 ml 200 ml Balance 703.456 ml 808.728 ml 1130.024 ml medications Current Medications Medications Dose Ordered Sig/Shayan Route Start Time Stop Time Status Last Admin Dose Admin Aspirin 81 mg DAILY PO 02/22/25 10:00 03/06/25 10:52 81 MG Levothyroxine Sodium 50 mcg QAM@0600 PO 02/22/25 06:00 03/06/25 05:42 50 MCG Sodium Chloride 10 ml Q8HR IV 02/22/25 06:00 03/06/25 21:30 10 ML Atorvastatin Calcium 20 mg HS PO 02/22/25 22:00 03/06/25 21:31 20 MG Midazolam HCl 50 ml @ 1 mls/hr Q24H IV 02/25/25 21:30 03/06/25 22:23 10 MLS/HR Fentanyl Citrate 250 ml @ 2.5 mls/hr Q24H IV 02/25/25 21:30 Hold Ipratropium [place] 0.5 mg Q4HR NEB 02/26/25 14:00 03/06/25 22:11 0.5 MG Piperacillin Sod/ Tazobactam Sod 100 ml @ 25 mls/hr Q12HR IV 02/26/25 22:00 03/06/25 21:30 25 MLS/HR Vancomycin HCl 0 ml @ 0 mls/hr UD IV 02/27/25 10:30 Heparin Sodium (Porcine) 5,000 units Q12HR SC 02/27/25 22:00 03/06/25 21:36 5,000 UNITS Diagnostic Test (Pha) 1 strip Q6HR 02/27/25 12:00 03/06/25 18:00 1 STRIP Insulin Human Regular Q6HR SC 02/27/25 12:00 03/05/25 18:48 2 UNITS Dextrose 50 ml UD PRN IV 02/27/25 11:45 Enteral Nutritional Formula 1,000 ml 30ML/HR GT 03/03/25 09:30 03/03/25 14:56 1,000 ML Sennosides 8.6 mg HS PO 03/03/25 22:00 03/06/25 21:31 8.6 MG Polyethylene Glycol 17 gm DAILY PO 03/03/25 18:40 03/06/25 10:51 17 GM Clonidine HCl 0.2 mg Q8HR PO 03/04/25 14:00 03/06/25 21:31 0.2 MG Nicardipine HCl 250 ml @ 50 mls/hr Q5H IV 03/04/25 16:15 03/06/25 21:33 50 MLS/HR Propofol 100 ml @ 2.679 mls/ hr Q24H IV 03/04/25 21:45 03/06/25 22:22 21.432 MLS/HR Prazosin HCl 1 mg Q12HR PO 03/05/25 22:00 03/06/25 21:31 1 MG Famotidine 10 mg EOD IV 03/08/25 10:00 Doxycycline Hyclate 100 ml @ 50 mls/hr Q12H IV 03/07/25 00:00 Amlodipine Besylate 5 mg DAILY PO 03/07/25 10:00 Carvedilol 12.5 mg Q12HR PO 03/06/25 22:00 03/06/25 21:32 12.5 MG Bumetanide 2 mg Q8HR IV 03/06/25 22:00 03/06/25 21:34 2 MG objective Gen.: Patient lying in bed in medical ICU. Sedated, intubated on mechanical ventilator. Head: Normocephalic, atraumatic. Eyes: PERRLA. Ears: Normal external anatomy. Throat: Endotracheal tube and orogastric tube in place. Neck: Supple, trachea midline. Chest: Transmitted breath sounds bilaterally. Decreased air entry bilaterally. No wheezing. Bibasilar crackles. Cardiovascular: Positive S1, positive S2. Regular rate and rhythm. Abdomen: Positive bowel sounds in all 4 quadrants. Soft, nontender, nondistended. : Noriega in place. Normal external genitalia. Rectal: Deferred. Skin: Warm, dry. Intact. Extremities: 2+ radial pulses bilaterally. No lower extremity edema. Neuro: Sedated. laboratory and microbiology Laboratory Tests 03/06/25 03:00 Test 03/06/25 03:00 Range/Units Serum Glucose 102 74-106 mg/dL Assessment/Plan Impression: Acute hypoxemic respiratory failure On mechanical ventilator Fluid overload Pneumonia Atelectasis Pulmonary edema Anemia ESRD, on hemodialysis Events: Remains on vent support AC mode; RR 22, tidal volume 500, PEEP 5, FiO2 30% Sedated on Propofol/Versed. CXR reviewed; reveals bibasilar airspace disease and left pleural effusion. OG tube advancement by about 10 cm is recommended. OG tube was advanced and placement confirmed. ABG reviewed, notable for alkalemia. Hemodialysis per Nephrology - s/p HD yesterday Continue tube feeds for nutritional support On Nicardipine drip for blood pressure control. PO medications for BP control, adjusted by hospitalist. Continue antibiotics - on Zosyn and doxycycline WBC within normal limits Blood cultures show no growth after 5 days Sputum culture positive for MRSA. Continue bronchodilators Monitor hemoglobin, stable at 8.4 g/dL HD per Nephrology Nephrology recs appreciated Diurese with Bumex IV. Monitor renal function Monitor electrolytes. Supplement as needed Monitor UOP. Monitor ins and outs. SBT/RIVKA. Taper sedation as tolerated Precedex drip OK for agitation. CPAP trial with PS 8, PEEP of 5 Bronchoscopy was performed 02/26/25 for pulmonary toileting -see separate note for procedure in detail Labs and imaging reviewed Plan: On mechanical ventilation S/p intubation Titrate to maintain sats 90% or above Antibiotics Follow up cultures Bronchodilators Monitor hemoglobin Transfuse if less than 7.0 g/dL. Accu-Cheks, ISS prn. Monitor renal function F/u nephrology Management deferred HD per Nephrology Monitor electrolytes. Supplement as needed Maintain euvolemia Pressors as needed for hemodynamic support To maintain a mean arterial pressure of 65 mmHg DVT prophylaxis Prognosis: Poor given patient's multiple co-morbidities. Condition: Critical Rest of plan per hospitalist and other consultants. A total of 35 minutes of critical care time was spent reviewing the patient record, examining the patient, making a diagnostic and therapeutic plan, discussing this plan with the medical personnel, following up on diagnostic studies and following the patient for clinical stability excluding any and all procedures. At least 50% of this time was spent in direct, [id number] contact. Thank you, Dr. Bass, for allowing me to participate in this patient's care. Further recommendations will depend on the patient's clinical course. Please do not hesitate to contact me if you have any questions or concerns. This medical document was created using an electronic medical record system with [employer] dictation system. Although these documentations are being carefully reviewed, there may still be some phonetic and typographical changes. The errors are purely typographical, due to imperfection on the software program, and do not reflect any compromise in the patient's medical care. Dietary Evaluation Review Comments: 1) Initiate Nephro-Tayla @ 1 tb qd 2) If patient remains NPO > 7 days, consider EN/TPN to meet at least 75% of estimated daily needs 3) If GI route is preferred, consider Nepro CarbSteady @ 40 mL/hr goal rate as tolerated. EN regimen will provide 2222 kcals (including Propofol), 78g Pro, and 715 mL free H2O per 24 hrs. Goal rate will meet ~ 98% estimated daily energy needs and ~ 72% estimated daily protein needs 4) Advance to renal cardiac diet when medically feasible, pending ST approval 5) Follow-up with cardiology, pulmonology, and nephrology 6) Continue to monitor I&O, labs, and skin integrity Expected Outcomes/Goals: 1) patient to receive nutrition support within 7 days of NPO status 2) GI symptoms and labs to improve 3) diet to advance 4) f/u in 2-3 days Plan discussed with: Other (HEIDY Sanabria) Critical Care Time(min): 35 BÁRBARA FISH MD Mar 06, 2025 23:44
[2025-03-07] VITALS (107 sets, daily range): BP systolic 122–187; BP diastolic 68–108; PULSE 100–125; RESP 12–28; TEMP 97.3–100.4; O2SAT 90–99
[2025-03-07] MEDS: DOXYCYCLINE 100MG/100ML 100 ML IV SCH (00:13)
[2025-03-07 03:55] LABS: Hematocrit 25.4 % (41.0-53.0); Hemoglobin 9.4 g/dL (13.5-17.5); Mean Corpuscular Volume 87.3 fL (80.0-100.0)
[2025-03-07 03:56] LABS: Mean Corpuscular Hemoglobin 32.2 pg (28.0-32.0); Nucleated Red Blood Cells % 0.1 %
[2025-03-07 04:01] LABS: Potassium 4.5 mmol/L (3.5-5.1)
[2025-03-07 04:02] LABS: Anion Gap 13 (5-15); Carbon Dioxide 25 mmol/L (20-31)
[2025-03-07 04:08] LABS: BUN/Creatinine Ratio 10.7 (10.0-20.0); Blood Urea Nitrogen 65 mg/dL (9-23); Calcium 8.2 mg/dL (8.7-10.4); Chloride 92 mmol/L (98-107); Glucose 99 mg/dL (74-106); Sodium 130 mmol/L (136-145)
--- NOTE | 2025-03-07 05:28 | DVH ---
CHEST RADIOGRAPH Indication: INTUBATED Technique: Single frontal view of the chest was obtained Comparison: XY CHEST PORTABLE on DOS: 03/06/25, XY CHEST PORTABLE on DOS: 03/05/25, XY CHEST XRAY 1 VIEW on DOS: 03/04/25, XY CHEST PORTABLE on DOS: 03/03/25, XY CHEST PORTABLE on DOS: 03/02/25 FINDINGS: Lines and Tubes: Enteric tube has been advanced, side port overlying the left upper quadrant and tip below field of view. Unchanged endotracheal tube and right IJ catheter. Lungs: Persistent [id number]-right infrahilar consolidations. Pleura: Small left pleural effusion. Cardiomediastinal contours: Unchanged. Bones: Unchanged. IMPRESSION: 1. Intervally advanced enteric tube, now projecting adequately positioned. 2. No other significant change from the previous day. [id number]-right basilar airspace disea se.
[2025-03-07] MEDS: SODIUM CHL 0.9% 1000 ML BAG XX ONE (07:00)
[2025-03-07 07:08] LABS: Base Excess 0.3 mmol/L (-2.0-3.0)
--- NOTE | 2025-03-07 10:23 | DVHPN2 ---
Progress Note - Dictate Date Seen: Mar 07, 2025 Has the PT tested + for MRSA If YES, has PT been informed?: No Medical Necessity Reason Pt with a Central, PICC or Fol: Yes The following are medically ne: Noriega Catheter Reason for noriega catheter: Strict I&O Subjective Patient is intubated and sedated Nicardipine drip increased to 10 mg/hr off sedation CPAP trial after dialysis today Urine output has been less than 500 mL. Significant positive fluid balance vital signs Vital Sign Date Time Temp Pulse Resp B/P (MAP) Pulse Ox O2 Delivery O2 Flow Rate FiO2 03/07/25 10:05 180/106 03/07/25 10:04 122 03/07/25 07:30 99.3 19 96 210.7 03/07/25 06:30 30 03/07/25 06:00 Mechanical Ventilator+ 03/06/25 18:00 30.0 Total Intake and Output 03/06/25 03/06/25 03/07/25 15:00 23:00 07:00 Intake Total 701.456 ml 1023.456 ml 1150.271 ml Output Total 0 ml 200 ml 210 ml Balance 701.456 ml 823.456 ml 940.271 ml medications Current Medications Medications Dose Ordered Sig/Shayan Route Start Time Stop Time Status Last Admin Dose Admin Aspirin 81 mg DAILY PO 02/22/25 10:00 03/07/25 10:03 81 MG Levothyroxine Sodium 50 mcg QAM@0600 PO 02/22/25 06:00 03/07/25 06:20 50 MCG Sodium Chloride 10 ml Q8HR IV 02/22/25 06:00 03/07/25 06:19 10 ML Atorvastatin Calcium 20 mg HS PO 02/22/25 22:00 03/06/25 21:31 20 MG Midazolam HCl 50 ml @ 1 mls/hr Q24H IV 02/25/25 21:30 03/07/25 03:49 7 MLS/HR Fentanyl Citrate 250 ml @ 2.5 mls/hr Q24H IV 02/25/25 21:30 Hold Ipratropium [place] 0.5 mg Q4HR NEB 02/26/25 14:00 03/07/25 06:31 0.5 MG Piperacillin Sod/ Tazobactam Sod 100 ml @ 25 mls/hr Q12HR IV 02/26/25 22:00 03/07/25 10:03 25 MLS/HR Vancomycin HCl 0 ml @ 0 mls/hr UD IV 02/27/25 10:30 Heparin Sodium (Porcine) 5,000 units Q12HR SC 02/27/25 22:00 03/07/25 10:06 5,000 UNITS Diagnostic Test (Pha) 1 strip Q6HR 02/27/25 12:00 03/07/25 06:20 1 STRIP Insulin Human Regular Q6HR SC 02/27/25 12:00 03/05/25 18:48 2 UNITS Dextrose 50 ml UD PRN IV 02/27/25 11:45 Enteral Nutritional Formula 1,000 ml 30ML/HR GT 03/03/25 09:30 03/03/25 14:56 1,000 ML Sennosides 8.6 mg HS PO 03/03/25 22:00 03/06/25 21:31 8.6 MG Polyethylene Glycol 17 gm DAILY PO 03/03/25 18:40 03/07/25 10:04 17 GM Clonidine HCl 0.2 mg Q8HR PO 03/04/25 14:00 03/07/25 06:20 0.2 MG Nicardipine HCl 250 ml @ 50 mls/hr Q5H IV 03/04/25 16:15 03/07/25 10:03 100 MLS/HR Propofol 100 ml @ 2.679 mls/ hr Q24H IV 03/04/25 21:45 03/07/25 01:50 21.432 MLS/HR Prazosin HCl 1 mg Q12HR PO 03/05/25 22:00 03/07/25 10:04 1 MG Famotidine 10 mg EOD IV 03/08/25 10:00 Doxycycline Hyclate 100 ml @ 50 mls/hr Q12H IV 03/07/25 00:00 03/07/25 00:13 50 MLS/HR Amlodipine Besylate 5 mg DAILY PO 03/07/25 10:00 03/07/25 10:05 5 MG Carvedilol 12.5 mg Q12HR PO 03/06/25 22:00 03/07/25 10:04 12.5 MG Bumetanide 2 mg Q8HR IV 03/06/25 22:00 03/07/25 06:19 2 MG objective Patient is intubated and sedated. HEENT: Normocephalic Lungs: Bilateral good air entry CVS: S1, S2 tachycardic Abdomen: Mildly distended Extremities: Ankle edema present laboratory and microbiology Laboratory Tests 03/07/25 03:00 Test 03/07/25 03:00 Range/Units Serum Glucose 99 74-106 mg/dL Problem List Severe CHANDRA secondary to hypertensive crisis and end organ damage CKD stage 4 is his baseline HTN emergency, patient has historically refused oral anti hypertensives due to multiple "allergies" and side effects Multiple cardiology and nephrology evaluations at [facility], [facility], etc have not helped him because he "cannot take any anti hypertensives orally" He was offered nephrectomy and HD at [facility] recently but declined He was sent for renal denervation and or osmar-receptor stimulation therapy but he could not get access to this Acute hypoxic respiratory failure on supplemental oxygen Pneumonia Bacteremia gram positive cocci elevated troponin, r/o NSTEMI h/o carotid artery stenosis s/p stent h/o TIA Hypothyroidism PTSD Assessment/Plan Patient is scheduled for dialysis today. Ultrafiltration goal is 3.5 L. Continue with nicardipine drip. Titrate down as tolerated as the patient is getting considerable volume with the nicardipine drip. Also patient hyponatremic secondary to hypotonic fluid Continue with Bumex 2 mg IV q.8 hours Continue with Coreg, amlodipine, clonidine and prazosin. Increase amlodipine to 10 mg daily. No evidence of renal recovery. Patient will need a tunneled catheter placement. Dietary Evaluation Review Comments: 1) Initiate Nephro-Tayla @ 1 tb qd 2) If patient remains NPO > 7 days, consider EN/TPN to meet at least 75% of estimated daily needs 3) If GI route is preferred, consider Nepro CarbSteady @ 40 mL/hr goal rate as tolerated. EN regimen will provide 2222 kcals (including Propofol), 78g Pro, and 715 mL free H2O per 24 hrs. Goal rate will meet ~ 98% estimated daily energy needs and ~ 72% estimated daily protein needs 4) Advance to renal cardiac diet when medically feasible, pending ST approval 5) Follow-up with cardiology, pulmonology, and nephrology 6) Continue to monitor I&O, labs, and skin integrity Expected Outcomes/Goals: 1) patient to receive nutrition support within 7 days of NPO status 2) GI symptoms and labs to improve 3) diet to advance 4) f/u in 2-3 days Plan discussed with: ABENA Holt MD Mar 07, 2025 10:23
[2025-03-07] MEDS ORDERED: VANCOMYCIN 500mg/100mL 100 ML IV ONE (18:00)
--- NOTE | 2025-03-07 19:28 | DVHPN2 ---
Subjective chart reviewed/discussed with nursing/no family at bedside Reviewed: Care Plan, H&P, Labs, Medications, Previous Orders, Radiology Changes from previous H/P or p: No Changes General: Per HPI Eyes: No Pain, No Vision change, No Conjunctivae inflammation, No Eyelid inflammation, No Other, No Redness ENT: No Ear pain, No Ear discharge, No Nose pain, No Nose discharge, No Nose congestion, No Mouth pain, No Mouth swelling, No Throat pain, No Throat swelling, No Other Cardiovascular: Chest Pain; No Palpitations, No Orthopnea, No Paroxysmal Noc. Dyspnea, No Edema, No Lt Headedness; Other (Hypertension) Respiratory: No Cough, No Dry, No Shortness of breath, No SOB with excertion, No Wheezing, No Hemoptysis, No Pleuritic Pain, No Sputum, No Other Gastrointestinal: No Nausea, No Vomiting, No Abdominal Pain, No Diarrhea, No Constipation, No Melena, No Hematochezia, No Other Genitourinary: No Dysuria, No Frequency, No Incontinence, No Hematuria, No Retention, No Other Musculoskeletal: No other; neck pain; No shoulder pain, No arm pain, No back pain, No hand pain, No leg pain, No foot pain Skin: No Rash, No Lesions, No Jaundice, No Bruising, No Other Objective Vitals Vital Signs Date Time Temp Pulse Resp B/P (MAP) Pulse Ox O2 Delivery O2 Flow Rate FiO2 03/07/25 18:34 115 26 148/91 (110) 94 30 03/07/25 18:33 Mechanical Ventilator+ 03/07/25 17:15 99.0 210.2 03/06/25 18:00 30.0 Intake/Output Intake and Output 03/07/25 07:00 Intake Total 2875.183 ml Output Total 410 ml Balance 2465.183 ml Intake Oral 260 ml IV Total 2027.183 ml Tube Feeding 588 ml Output Urine Total 410 ml Stool Total 0 ml General Appearance: Other (intubated and off sedation now- but still no response to noise/noxious stimulii) HEENT: Atraumatic, PERRLA, EOMI, Mucous membr. moist/pink Neck: Supple Lungs: Other (decreased sounds) Cardiovascular: Regular rate, Normal S1, Normal S2 Abdomen: Normal bowel sounds, Soft, No tenderness Extremities: Normal pulses Neuro: Other (on ventilator/just coming off sedation/ peerl/no response to call) Medications Current Medications Medications Dose Ordered Sig/Shayan Route Start Time Stop Time Status Last Admin Dose Admin Aspirin 81 mg DAILY PO 02/22/25 10:00 03/07/25 10:03 81 MG Levothyroxine Sodium 50 mcg QAM@0600 PO 02/22/25 06:00 03/07/25 06:20 50 MCG Sodium Chloride 10 ml Q8HR IV 02/22/25 06:00 03/07/25 14:36 10 ML Atorvastatin Calcium 20 mg HS PO 02/22/25 22:00 03/06/25 21:31 20 MG Midazolam HCl 50 ml @ 1 mls/hr Q24H IV 02/25/25 21:30 03/07/25 03:49 7 MLS/HR Fentanyl Citrate 250 ml @ 2.5 mls/hr Q24H IV 02/25/25 21:30 Hold Ipratropium [place] 0.5 mg Q4HR NEB 02/26/25 14:00 03/07/25 18:33 0.5 MG Piperacillin Sod/ Tazobactam Sod 100 ml @ 25 mls/hr Q12HR IV 02/26/25 22:00 03/07/25 10:03 25 MLS/HR Vancomycin HCl 0 ml @ 0 mls/hr UD IV 02/27/25 10:30 Heparin Sodium (Porcine) 5,000 units Q12HR SC 02/27/25 22:00 03/07/25 10:06 5,000 UNITS Diagnostic Test (Pha) 1 strip Q6HR 02/27/25 12:00 03/07/25 12:54 1 STRIP Insulin Human Regular Q6HR SC 02/27/25 12:00 03/05/25 18:48 2 UNITS Dextrose 50 ml UD PRN IV 02/27/25 11:45 Enteral Nutritional Formula 1,000 ml 30ML/HR GT 03/03/25 09:30 03/03/25 14:56 1,000 ML Sennosides 8.6 mg HS PO 03/03/25 22:00 03/06/25 21:31 8.6 MG Polyethylene Glycol 17 gm DAILY PO 03/03/25 18:40 03/07/25 10:04 17 GM Clonidine HCl 0.2 mg Q8HR PO 03/04/25 14:00 03/07/25 14:36 0.2 MG Propofol 100 ml @ 2.679 mls/ hr Q24H IV 03/04/25 21:45 03/07/25 01:50 21.432 MLS/HR Prazosin HCl 1 mg Q12HR PO 03/05/25 22:00 03/07/25 10:04 1 MG Famotidine 10 mg EOD IV 03/08/25 10:00 Doxycycline Hyclate 100 ml @ 50 mls/hr Q12H IV 03/07/25 00:00 03/07/25 12:53 50 MLS/HR Carvedilol 12.5 mg Q12HR PO 03/06/25 22:00 03/07/25 10:04 12.5 MG Bumetanide 2 mg Q8HR IV 03/06/25 22:00 03/07/25 14:35 2 MG Amlodipine Besylate 10 mg DAILY PO 03/08/25 10:00 Nicardipine HCl 50 mg/Sodium Chloride 250 ml @ 25 mls/hr Q10H IV 03/07/25 15:00 03/07/25 16:43 50 MLS/HR Laboratory Results Laboratory Tests 03/07/25 03:00 Chemistry Test 03/07/25 03:00 Calcium Level 8.2 mg/dL (8.7-10.4) L Urinalysis Test 02/26/25 02:00 Urine Color Light-yellow (Yellow) Urine Clarity Turbid (Clear) H Urine pH 5.0 (5.0-9.0) Urine Specific [place] 1.011 (1.001-1.035) Urine Protein 1+ (Negative) H Urine Ketones Negative (Negative) Urine Blood Trace /uL (Negative) H Urine Nitrite Negative (Negative) Urine Bilirubin Negative (Negative) Urine Urobilinogen Normal mg/dL (Negative) Urine Leukocyte Esterase Negative /uL (Negative) Urine RBC 1 /hpf (0 - 3) Urine Microscopic WBC 4 /HPF (0-3) H Urine Squamous Epithelial Cells Few /hpf (<5) Urine Amorphous Crystals Few /hpf (None Seen) Urine Bacteria Few /hpf (None Seen) H Urine Glucose Normal mg/dL (Normal) Blood Gas Results Test 03/07/25 06:25 Arterial Blood pH 7.460 (7.350-7.450) FiO2 % 30.0 Microbiology Microbiology Date/Time Source Procedure Growth Status 02/26/25 11:38 Sputum Gram Stain - Final Complete 02/26/25 11:38 Respiratory Culture - Final Methicillin Resistant S.aureus Complete 02/26/25 02:00 Voided Urine Urine Culture - Final Complete 02/26/25 01:44 Blood Blood Culture - Final NO GROWTH AFTER 5 DAYS OF INCUBATION. Complete 02/25/25 20:15 Trachea Gram Stain - Final Complete 02/25/25 20:15 Trachea Respiratory Culture - Final Complete Labs and/or images reviewed: Labs reviewed by me Assessment/Plan Assessment/Plan acute respiratory failure secondary to fluid overload from arf/pneumonia acclerated htn on admission- bp stable now acute renal failure on dialysis- was at ckd[facility] and declined dialysis and bp meds prior to admission per nephrology notes staph capitis sepsis- mrsa pneumonia -on vancomycin/doxycycline htn hypothyroidism dvt prophylaxis- on heparin sc at dialysis anemia- stable/no active bleeding gi prophylaxis plan- if wakes up cpap trial in am Plan discussed with: Other Date of Service: Mar 07, 2025 Billing Provider: TAMIR AGUILERA MD Common Visit Codes: [id number] CARE 30-74 MIN TAMIR AGUILERA MD Mar 07, 2025 19:28
[2025-03-07] MEDS: EPOETIN ALFA-EPBX 4,000 UNIT/ML VIAL SC ONE (23:13)
[2025-03-07] MEDS: VANCOMYCIN 500mg/100mL 100 ML IV ONE (23:16)
--- NOTE | 2025-03-07 23:17 | DVHPN2 ---
Progress Note - Dictate Date Seen: Mar 07, 2025 Has the PT tested + for MRSA If YES, has PT been informed?: No Medical Necessity Reason Pt with a Central, PICC or Fol: Yes The following are medically ne: Noriega Catheter Reason for noriega catheter: Strict I&O Subjective Patient seen and examined at bedside. Sedated, intubated on mechanical ventilator. Overnight events reviewed. vital signs Vital Sign Date Time Temp Pulse Resp B/P (MAP) Pulse Ox O2 Delivery O2 Flow Rate FiO2 03/07/25 22:05 115 23 140/87 (104) 95 30 03/07/25 18:45 99.0 210.2 03/07/25 18:33 Mechanical Ventilator+ 03/06/25 18:00 30.0 Total Intake and Output 03/06/25 03/06/25 03/07/25 15:00 23:00 07:00 Intake Total 701.456 ml 1023.456 ml 1150.271 ml Output Total 0 ml 200 ml 210 ml Balance 701.456 ml 823.456 ml 940.271 ml medications Current Medications Medications Dose Ordered Sig/Shayan Route Start Time Stop Time Status Last Admin Dose Admin Aspirin 81 mg DAILY PO 02/22/25 10:00 03/07/25 10:03 81 MG Levothyroxine Sodium 50 mcg QAM@0600 PO 02/22/25 06:00 03/07/25 06:20 50 MCG Sodium Chloride 10 ml Q8HR IV 02/22/25 06:00 03/07/25 14:36 10 ML Atorvastatin Calcium 20 mg HS PO 02/22/25 22:00 03/06/25 21:31 20 MG Midazolam HCl 50 ml @ 1 mls/hr Q24H IV 02/25/25 21:30 03/07/25 03:49 7 MLS/HR Fentanyl Citrate 250 ml @ 2.5 mls/hr Q24H IV 02/25/25 21:30 03/07/25 20:03 2.5 MLS/HR Ipratropium [place] 0.5 mg Q4HR NEB 02/26/25 14:00 03/07/25 22:05 0.5 MG Piperacillin Sod/ Tazobactam Sod 100 ml @ 25 mls/hr Q12HR IV 02/26/25 22:00 03/07/25 10:03 25 MLS/HR Vancomycin HCl 0 ml @ 0 mls/hr UD IV 02/27/25 10:30 Heparin Sodium (Porcine) 5,000 units Q12HR SC 02/27/25 22:00 03/07/25 10:06 5,000 UNITS Diagnostic Test (Pha) 1 strip Q6HR 02/27/25 12:00 03/07/25 12:54 1 STRIP Insulin Human Regular Q6HR SC 02/27/25 12:00 03/05/25 18:48 2 UNITS Dextrose 50 ml UD PRN IV 02/27/25 11:45 Enteral Nutritional Formula 1,000 ml 30ML/HR GT 03/03/25 09:30 03/03/25 14:56 1,000 ML Sennosides 8.6 mg HS PO 03/03/25 22:00 03/06/25 21:31 8.6 MG Polyethylene Glycol 17 gm DAILY PO 03/03/25 18:40 03/07/25 10:04 17 GM Clonidine HCl 0.2 mg Q8HR PO 03/04/25 14:00 03/07/25 14:36 0.2 MG Propofol 100 ml @ 2.679 mls/ hr Q24H IV 03/04/25 21:45 03/07/25 01:50 21.432 MLS/HR Prazosin HCl 1 mg Q12HR PO 03/05/25 22:00 03/07/25 10:04 1 MG Famotidine 10 mg EOD IV 03/08/25 10:00 Doxycycline Hyclate 100 ml @ 50 mls/hr Q12H IV 03/07/25 00:00 03/07/25 12:53 50 MLS/HR Carvedilol 12.5 mg Q12HR PO 03/06/25 22:00 03/07/25 10:04 12.5 MG Bumetanide 2 mg Q8HR IV 03/06/25 22:00 03/07/25 14:35 2 MG Amlodipine Besylate 10 mg DAILY PO 03/08/25 10:00 Nicardipine HCl 50 mg/Sodium Chloride 250 ml @ 25 mls/hr Q10H IV 03/07/25 15:00 03/07/25 16:43 50 MLS/HR objective Gen.: Patient lying in bed in medical ICU. Sedated, intubated on mechanical ventilator. Head: Normocephalic, atraumatic. Eyes: PERRLA. Ears: Normal external anatomy. Throat: Endotracheal tube and orogastric tube in place. Neck: Supple, trachea midline. Chest: Transmitted breath sounds bilaterally. Decreased air entry bilaterally. No wheezing. Bibasilar crackles. Cardiovascular: Positive S1, positive S2. Regular rate and rhythm. Abdomen: Positive bowel sounds in all 4 quadrants. Soft, nontender, nondistended. : Noriega in place. Normal external genitalia. Rectal: Deferred. Skin: Warm, dry. Intact. Extremities: 2+ radial pulses bilaterally. No lower extremity edema. Neuro: Sedated. laboratory and microbiology Laboratory Tests 03/07/25 03:00 Test 03/07/25 03:00 Range/Units Serum Glucose 99 74-106 mg/dL Assessment/Plan Impression: Acute hypoxemic respiratory failure On mechanical ventilator Fluid overload Pneumonia Atelectasis Pulmonary edema Anemia ESRD, on hemodialysis Events: Remains on vent support AC mode; RR 22, tidal volume 500, PEEP 5, FiO2 30% Sedated on Propofol. Off Versed. ABG reviewed, notable for alkalemia. CXR no significant change; Wzcz-[id number]-nryu-right basilar airspace disease. Hemodialysis per Nephrology Nephrology recs appreciated. Continue tube feeds for nutritional support On Nicardipine drip for blood pressure control. PO medications for BP control, adjusted by hospitalist. Continue antibiotics WBC currently 12.1 K - monitor Blood cultures show no growth after 5 days Sputum culture positive for MRSA. Continue bronchodilators Monitor hemoglobin HD per Nephrology Diurese with Bumex IV. Monitor renal function Monitor electrolytes. Supplement as needed Monitor UOP. Monitor ins and outs. SBT/RIVKA. Taper sedation as tolerated Precedex drip OK for agitation. CPAP trial with PS 8, PEEP of 5 Awaiting for mentation to improve. Bronchoscopy was performed 02/26/25 for pulmonary toileting -see separate note for procedure in detail Labs and imaging reviewed Plan: On mechanical ventilation S/p intubation Titrate to maintain sats 90% or above Antibiotics Follow up cultures Bronchodilators Monitor hemoglobin Transfuse if less than 7.0 g/dL. Accu-Cheks, ISS prn. Monitor renal function F/u nephrology Management deferred HD per Nephrology Monitor electrolytes. Supplement as needed Maintain euvolemia Pressors as needed for hemodynamic support To maintain a mean arterial pressure of 65 mmHg DVT prophylaxis Prognosis: Poor given patient's multiple co-morbidities. Condition: Critical Rest of plan per hospitalist and other consultants. A total of 35 minutes of critical care time was spent reviewing the patient record, examining the patient, making a diagnostic and therapeutic plan, discussing this plan with the medical personnel, following up on diagnostic studies and following the patient for clinical stability excluding any and all procedures. At least 50% of this time was spent in direct, [id number] contact. Thank you, Dr. Bass, for allowing me to participate in this patient's care. Further recommendations will depend on the patient's clinical course. Please do not hesitate to contact me if you have any questions or concerns. This medical document was created using an electronic medical record system with [employer] dictation system. Although these documentations are being carefully reviewed, there may still be some phonetic and typographical changes. The errors are purely typographical, due to imperfection on the software program, and do not reflect any compromise in the patient's medical care. Dietary Evaluation Review Comments: 1) Initiate Nephro-Tayla @ 1 tb qd 2) If patient remains NPO > 7 days, consider EN/TPN to meet at least 75% of estimated daily needs 3) If GI route is preferred, consider Nepro CarbSteady @ 40 mL/hr goal rate as tolerated. EN regimen will provide 2222 kcals (including Propofol), 78g Pro, and 715 mL free H2O per 24 hrs. Goal rate will meet ~ 98% estimated daily energy needs and ~ 72% estimated daily protein needs 4) Advance to renal cardiac diet when medically feasible, pending ST approval 5) Follow-up with cardiology, pulmonology, and nephrology 6) Continue to monitor I&O, labs, and skin integrity Expected Outcomes/Goals: 1) patient to receive nutrition support within 7 days of NPO status 2) GI symptoms and labs to improve 3) diet to advance 4) f/u in 2-3 days Plan discussed with: Other (HEIDY Monahan) Critical Care Time(min): 35 BÁRBARA FISH MD Mar 07, 2025 23:17
[2025-03-08] VITALS (106 sets, daily range): BP systolic 128–187; BP diastolic 82–117; PULSE 102–124; RESP 10–27; TEMP 98.1–99.3; O2SAT 94–100
[2025-03-08 04:12] LABS: Hemoglobin 8.7 g/dL (13.5-17.5)
[2025-03-08 04:15] LABS: Hematocrit 23.6 % (41.0-53.0); Mean Corpuscular Hemoglobin 32.2 pg (28.0-32.0); Mean Corpuscular Volume 87.4 fL (80.0-100.0); Nucleated Red Blood Cells % 0.0 %
[2025-03-08 04:30] LABS: Anion Gap 13 (5-15); BUN/Creatinine Ratio 10.1 (10.0-20.0); Bilirubin, Total 0.3 mg/dL (0.2-1.0); Carbon Dioxide 27 mmol/L (20-31); Glucose 86 mg/dL (74-106); Potassium 3.6 mmol/L (3.5-5.1)
[2025-03-08 04:54] LABS: Alanine Aminotransferase 200 U/L (7-40); Albumin 3.1 g/dL (3.2-4.8); Alkaline Phosphatase 211 U/L (46-116); Blood Urea Nitrogen 52 mg/dL (9-23); Calcium 8.4 mg/dL (8.7-10.4); Chloride 94 mmol/L (98-107); Sodium 134 mmol/L (136-145); Total Protein 5.1 g/dL (5.7-8.2)
--- NOTE | 2025-03-08 05:48 | DVH ---
CHEST RADIOGRAPH Indication: INTUBATED Technique: 1 view Comparison: XY CHEST XRAY 1 VIEW on DOS: 03/07/25, XY CHEST PORTABLE on DOS: 03/06/25, XY CHEST PORTABLE on DOS: 03/05/25, XY CHEST XRAY 1 VIEW on DOS: 03/04/25, XY CHEST PORTABLE on DOS: 03/03/25 FINDINGS: Lines and Tubes: Unchanged endotracheal tube, enteric tube, and right IJ catheter. Lungs: Persistent mtgp-iwsmxyy-dvhk-right inferior airspace disease. Pleura: Small left pleural effusion. Cardiomediastinal contours: Unchanged. Bones: Unchanged. IMPRESSION: 1. No significant change from the previous study. Stable support devices.
[2025-03-08 07:02] LABS: Base Excess 0.6 mmol/L (-2.0-3.0)
[2025-03-08] MEDS: FAMOTIDINE (10MG/ML) 2ML VL IV SCH (10:17)
--- NOTE | 2025-03-08 12:52 | DVHPN2 ---
Subjective chart reviewed/discussed with nursing/no family at bedside/ still no waking up/peerl Reviewed: Care Plan, H&P, Labs, Medications, Previous Orders, Radiology Changes from previous H/P or p: No Changes General: Per HPI Eyes: No Pain, No Vision change, No Conjunctivae inflammation, No Eyelid inflammation, No Other, No Redness ENT: No Ear pain, No Ear discharge, No Nose pain, No Nose discharge, No Nose congestion, No Mouth pain, No Mouth swelling, No Throat pain, No Throat swelling, No Other Cardiovascular: Chest Pain; No Palpitations, No Orthopnea, No Paroxysmal Noc. Dyspnea, No Edema, No Lt Headedness; Other (Hypertension) Respiratory: No Cough, No Dry, No Shortness of breath, No SOB with excertion, No Wheezing, No Hemoptysis, No Pleuritic Pain, No Sputum, No Other Gastrointestinal: No Nausea, No Vomiting, No Abdominal Pain, No Diarrhea, No Constipation, No Melena, No Hematochezia, No Other Genitourinary: No Dysuria, No Frequency, No Incontinence, No Hematuria, No Retention, No Other Musculoskeletal: No other; neck pain; No shoulder pain, No arm pain, No back pain, No hand pain, No leg pain, No foot pain Skin: No Rash, No Lesions, No Jaundice, No Bruising, No Other Objective Vitals Vital Signs Date Time Temp Pulse Resp B/P (MAP) Pulse Ox O2 Delivery O2 Flow Rate FiO2 03/08/25 12:00 111 152/98 03/08/25 11:52 24 95 30 03/08/25 10:30 99.0 210.2 03/08/25 10:00 Mechanical Ventilator+ 03/06/25 18:00 30.0 Intake/Output Intake and Output 03/08/25 07:00 Intake Total 2490.092 ml Output Total 200 ml Balance 2290.092 ml Intake Oral 390 ml IV Total 1731.092 ml Tube Feeding 369 ml Output Urine Total 200 ml # Bowel Movements 1 General Appearance: Other (intubated and on minimal sedation sedation now- but still no response to noise/noxious stimulii) HEENT: Atraumatic, PERRLA, EOMI, Mucous membr. moist/pink Neck: Supple Lungs: Other (decreased sounds) Cardiovascular: Regular rate, Normal S1, Normal S2 Abdomen: Normal bowel sounds, Soft, No tenderness Musculoskeletal: Other (intubated/peerl/no response to noxious stimulii) Extremities: Normal pulses Neuro: Other (on ventilator/just coming off sedation/ peerl/no response to call) Medications Current Medications Medications Dose Ordered Sig/Shayan Route Start Time Stop Time Status Last Admin Dose Admin Aspirin 81 mg DAILY PO 02/22/25 10:00 03/08/25 10:17 81 MG Levothyroxine Sodium 50 mcg QAM@0600 PO 02/22/25 06:00 03/08/25 05:27 50 MCG Sodium Chloride 10 ml Q8HR IV 02/22/25 06:00 03/08/25 05:28 10 ML Atorvastatin Calcium 20 mg HS PO 02/22/25 22:00 03/07/25 23:11 20 MG Midazolam HCl 50 ml @ 1 mls/hr Q24H IV 02/25/25 21:30 03/07/25 03:49 7 MLS/HR Fentanyl Citrate 250 ml @ 2.5 mls/hr Q24H IV 02/25/25 21:30 03/07/25 20:03 2.5 MLS/HR Ipratropium [place] 0.5 mg Q4HR NEB 02/26/25 14:00 03/08/25 09:26 0.5 MG Piperacillin Sod/ Tazobactam Sod 100 ml @ 25 mls/hr Q12HR IV 02/26/25 22:00 03/08/25 10:16 25 MLS/HR Vancomycin HCl 0 ml @ 0 mls/hr UD IV 02/27/25 10:30 Heparin Sodium (Porcine) 5,000 units Q12HR SC 02/27/25 22:00 03/08/25 10:22 5,000 UNITS Diagnostic Test (Pha) 1 strip Q6HR 02/27/25 12:00 03/08/25 11:50 1 STRIP Insulin Human Regular Q6HR SC 02/27/25 12:00 03/05/25 18:48 2 UNITS Dextrose 50 ml UD PRN IV 02/27/25 11:45 Enteral Nutritional Formula 1,000 ml 30ML/HR GT 03/03/25 09:30 03/03/25 14:56 1,000 ML Sennosides 8.6 mg HS PO 03/03/25 22:00 03/07/25 23:11 8.6 MG Polyethylene Glycol 17 gm DAILY PO 03/03/25 18:40 03/07/25 10:04 17 GM Clonidine HCl 0.2 mg Q8HR PO 03/04/25 14:00 03/08/25 05:27 0.2 MG Propofol 100 ml @ 2.679 mls/ hr Q24H IV 03/04/25 21:45 03/08/25 04:57 5.358 MLS/HR Prazosin HCl 1 mg Q12HR PO 03/05/25 22:00 03/08/25 10:17 1 MG Famotidine 10 mg EOD IV 03/08/25 10:00 03/08/25 10:17 10 MG Doxycycline Hyclate 100 ml @ 50 mls/hr Q12H IV 03/07/25 00:00 03/08/25 11:50 50 MLS/HR Carvedilol 12.5 mg Q12HR PO 03/06/25 22:00 03/08/25 10:16 12.5 MG Bumetanide 2 mg Q8HR IV 03/06/25 22:00 03/08/25 05:27 2 MG Amlodipine Besylate 10 mg DAILY PO 03/08/25 10:00 03/08/25 10:17 10 MG Nicardipine HCl 50 mg/Sodium Chloride 250 ml @ 25 mls/hr Q10H IV 03/07/25 15:00 03/08/25 05:38 25 MLS/HR Laboratory Results Laboratory Tests 03/08/25 03:13 Chemistry Test 03/08/25 03:13 Albumin 3.1 g/dL (3.2-4.8) L Calcium Level 8.4 mg/dL (8.7-10.4) L Total Protein 5.1 g/dL (5.7-8.2) L LFT Test 03/08/25 03:13 Alanine Aminotransferase (ALT) 200 U/L (7-40) H Alkaline Phosphatase 211 U/L (46-116) H Aspartate Amino Transferase (AST) 637 U/L (13-40) H Total Bilirubin 0.3 mg/dL (0.2-1.0) Urinalysis Test 02/26/25 02:00 Urine Color Light-yellow (Yellow) Urine Clarity Turbid (Clear) H Urine pH 5.0 (5.0-9.0) Urine Specific [place] 1.011 (1.001-1.035) Urine Protein 1+ (Negative) H Urine Ketones Negative (Negative) Urine Blood Trace /uL (Negative) H Urine Nitrite Negative (Negative) Urine Bilirubin Negative (Negative) Urine Urobilinogen Normal mg/dL (Negative) Urine Leukocyte Esterase Negative /uL (Negative) Urine RBC 1 /hpf (0 - 3) Urine Microscopic WBC 4 /HPF (0-3) H Urine Squamous Epithelial Cells Few /hpf (<5) Urine Amorphous Crystals Few /hpf (None Seen) Urine Bacteria Few /hpf (None Seen) H Urine Glucose Normal mg/dL (Normal) Blood Gas Results Test 03/08/25 06:58 Arterial Blood pH 7.480 (7.350-7.450) FiO2 % 30.0 Microbiology Microbiology Date/Time Source Procedure Growth Status 02/26/25 11:38 Sputum Gram Stain - Final Complete 02/26/25 11:38 Respiratory Culture - Final Methicillin Resistant S.aureus Complete 02/26/25 02:00 Voided Urine Urine Culture - Final Complete 02/26/25 01:44 Blood Blood Culture - Final NO GROWTH AFTER 5 DAYS OF INCUBATION. Complete 02/25/25 20:15 Trachea Gram Stain - Final Complete 02/25/25 20:15 Trachea Respiratory Culture - Final Complete Labs and/or images reviewed: Labs reviewed by me, Image(s) reviewed by me Assessment/Plan Assessment/Plan acute respiratory failure secondary to fluid overload from arf/pneumonia- still vent dependent acclerated htn on admission- bp stable now acute renal failure on dialysis- was at [facility]kd4 and declined dialysis and bp meds prior to admission per nephrology notes staph capitis sepsis-stable mrsa pneumonia -on vancomycin/doxycycline htn- hypothyroidism dvt prophylaxis- on heparin sc at dialysis anemia- stable/no active bleeding gi prophylaxis plan- if wakes up cpap trial in am elevated lft stop statin/check us ruq encephalopathy- check ct head/neuro consult Plan discussed with: Other Date of Service: Mar 08, 2025 Billing Provider: TAMIR AGUILERA MD Common Visit Codes: 60341-VJNBOUXT CARE 30-74 MIN TAMIR AGUILERA MD Mar 08, 2025 12:52
--- NOTE | 2025-03-08 14:04 | DVH ---
EXAM DESCRIPTION: US ABDOMEN LIMITED CLINICAL HISTORY: elevated lft COMPARISON: Ultrasound renal 02/22/25 TECHNIQUE: Using real-time ultrasonography multiple images of the abdomen were obtained. FINDINGS: The liver measures 18.4 cm. No focal liver masses. The liver is diffiusely increased in echongenicity. The partially imaged pancreas is unremarkable. No gallstones in the gallbladder. Mild gallbladder wall thickening. Sludge in the gallbladder. Negat kwame sonographic Vo sign. The common bile duct measures 5 mm in diameter. There is no free intraperitoneal fluid. The right kidney measures 11.4 cm. The left kidney measures 11.3 cm. No renal calculi or hydronephros is. Echogenic bilateral kidneys. 2.6 cm left renal cyst. Bilateral pleural effusions. IMPRESSION: 1. Hepatic steatosis and hepatomegaly. 2. Gallbladder sludge with mild gallbladder wall thickening. Consider HIDA scan if there is clinical concern for acute cholecystitis. 3. Echogenicity kidneys, suggesting medical renal disease.
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
--- NOTE | 2025-03-08 16:28 | DVHPN2 ---
Progress Note - Dictate Date Seen: Mar 08, 2025 Has the PT tested + for MRSA If YES, has PT been informed?: No Medical Necessity Reason Pt with a Central, PICC or Fol: Yes The following are medically ne: Noriega Catheter Reason for noriega catheter: Strict I&O Subjective Patient is intubated and sedated Nicardipine drip at 5 mg/hr vital signs Vital Sign Date Time Temp Pulse Resp B/P (MAP) Pulse Ox O2 Delivery O2 Flow Rate FiO2 03/08/25 15:54 143/92 03/08/25 15:46 106 25 96 30 03/08/25 15:00 98.4 209.1 03/08/25 14:00 Mechanical Ventilator+ 03/06/25 18:00 30.0 Total Intake and Output 03/07/25 03/07/25 03/08/25 15:00 23:00 07:00 Intake Total 942.864 ml 728.364 ml 818.864 ml Output Total 175 ml 25 ml Balance 942.864 ml 553.364 ml 793.864 ml medications Current Medications Medications Dose Ordered Sig/Shayan Route Start Time Stop Time Status Last Admin Dose Admin Aspirin 81 mg DAILY PO 02/22/25 10:00 03/08/25 10:17 81 MG Levothyroxine Sodium 50 mcg QAM@0600 PO 02/22/25 06:00 03/08/25 05:27 50 MCG Sodium Chloride 10 ml Q8HR IV 02/22/25 06:00 03/08/25 14:39 10 ML Midazolam HCl 50 ml @ 1 mls/hr Q24H IV 02/25/25 21:30 03/07/25 03:49 7 MLS/HR Fentanyl Citrate 250 ml @ 2.5 mls/hr Q24H IV 02/25/25 21:30 03/07/25 20:03 2.5 MLS/HR Ipratropium [place] 0.5 mg Q4HR NEB 02/26/25 14:00 03/08/25 13:42 0.5 MG Piperacillin Sod/ Tazobactam Sod 100 ml @ 25 mls/hr Q12HR IV 02/26/25 22:00 03/08/25 10:16 25 MLS/HR Vancomycin HCl 0 ml @ 0 mls/hr UD IV 02/27/25 10:30 Heparin Sodium (Porcine) 5,000 units Q12HR SC 02/27/25 22:00 03/08/25 10:22 5,000 UNITS Diagnostic Test (Pha) 1 strip Q6HR 02/27/25 12:00 03/08/25 11:50 1 STRIP Insulin Human Regular Q6HR SC 02/27/25 12:00 03/05/25 18:48 2 UNITS Dextrose 50 ml UD PRN IV 02/27/25 11:45 Enteral Nutritional Formula 1,000 ml 30ML/HR GT 03/03/25 09:30 03/03/25 14:56 1,000 ML Sennosides 8.6 mg HS PO 03/03/25 22:00 03/07/25 23:11 8.6 MG Polyethylene Glycol 17 gm DAILY PO 03/03/25 18:40 03/07/25 10:04 17 GM Clonidine HCl 0.2 mg Q8HR PO 03/04/25 14:00 03/08/25 14:40 0.2 MG Propofol 100 ml @ 2.679 mls/ hr Q24H IV 03/04/25 21:45 03/08/25 04:57 5.358 MLS/HR Prazosin HCl 1 mg Q12HR PO 03/05/25 22:00 03/08/25 10:17 1 MG Famotidine 10 mg EOD IV 03/08/25 10:00 03/08/25 10:17 10 MG Doxycycline Hyclate 100 ml @ 50 mls/hr Q12H IV 03/07/25 00:00 03/08/25 11:50 50 MLS/HR Carvedilol 12.5 mg Q12HR PO 03/06/25 22:00 03/08/25 10:16 12.5 MG Bumetanide 2 mg Q8HR IV 03/06/25 22:00 03/08/25 14:40 2 MG Amlodipine Besylate 10 mg DAILY PO 03/08/25 10:00 03/08/25 10:17 10 MG Nicardipine HCl 50 mg/Sodium Chloride 250 ml @ 25 mls/hr Q10H IV 03/07/25 15:00 03/08/25 05:38 25 MLS/HR objective Patient is intubated and sedated. HEENT: Normocephalic Lungs: Bilateral good air entry CVS: S1, S2 tachycardic Abdomen: Mildly distended Extremities: Ankle edema present laboratory and microbiology Laboratory Tests 03/08/25 03:13 Test 03/08/25 03:13 Range/Units Serum Glucose 86 74-106 mg/dL Problem List Severe CHANDRA secondary to hypertensive crisis and end organ damage CKD stage 4 is his baseline HTN emergency, patient has historically refused oral anti hypertensives due to multiple "allergies" and side effects Multiple cardiology and [place] [facility] [facility], etc have not helped him because he "cannot take any anti hypertensives orally" He was offered nephrectomy and [place] [facility] but declined He was sent for renal denervation and or osmar-receptor stimulation therapy but he could not get access to this Acute hypoxic respiratory failure on supplemental oxygen Pneumonia Bacteremia gram positive cocci elevated troponin, r/o NSTEMI h/o carotid artery stenosis s/p stent h/o TIA Hypothyroidism PTSD Assessment/Plan Last HD on Sat . Will schedule another session tomorrow Ultrafiltration goal is 3.5 L. Continue with nicardipine drip. Titrate down as tolerated Also patient hyponatremic secondary to hypotonic fluid Continue with Bumex 2 mg IV q.8 hours Continue with Coreg, amlodipine, clonidine and prazosin. No evidence of renal recovery. Patient will need a tunneled catheter placement. We will consult IR for the same. at bedside has been updated. Dietary Evaluation Review Comments: 1) Initiate Nephro-Tayla @ 1 tb qd 2) If patient remains NPO > 7 days, consider EN/TPN to meet at least 75% of estimated daily needs 3) If GI route is preferred, consider Nepro CarbSteady @ 40 mL/hr goal rate as tolerated. EN regimen will provide 2222 kcals (including Propofol), 78g Pro, and 715 mL free H2O per 24 hrs. Goal rate will meet ~ 98% estimated daily energy needs and ~ 72% estimated daily protein needs 4) Advance to renal cardiac diet when medically feasible, pending ST approval 5) Follow-up with cardiology, pulmonology, and nephrology 6) Continue to monitor I&O, labs, and skin integrity Expected Outcomes/Goals: 1) patient to receive nutrition support within 7 days of NPO status 2) GI symptoms and labs to improve 3) diet to advance 4) f/u in 2-3 days Plan discussed with: Spouse ABENA JULIEN MD Mar 08, 2025 16:28
--- NOTE | 2025-03-08 16:54 | DVH ---
EXAM: CT HEAD WITHOUT CONTRAST INDICATION: encephalopathy/slow waking up-off of sedation TECHNIQUE: CT of the head without intravenous contrast. Radiation Dose Information: CT Dose: CTDI volume is 59.73 mGy. Dose-length product is 957.12 mGy*cm The dose indicators for CT are the volume Computed Tomography (CT) Dose Index (CTDIvol) and the Dose Length Product (DLP), and are measured in units of mGy and mGy-cm, respectively. These indicators are not patient dose, but values generated from the CT scanner acquisition factors. The report includes radiation exposure data for exposures received during this examination. COMPARISON: CT HEAD WITHOUT CONTRAST on DOS: 02/21/25, CT HEAD WITHOUT CONTRAST on DOS: 10/27/24, CT HE AD WITHOUT CONTRAST on DOS: 01/23/23 FINDINGS: There is no evidence of acute intracranial hemorrhage, extra-axial collection, mass effect, midline s hift, herniation or hydrocephalus. The ventricles, sulci and cisterns are age appropriate. The rossi-white differentiation is intact. Patchy periventricular and subcortical white matter hypoattenuation is nonspecific but may be related to small vessel ischemic disease. The visualized paranasal sinuses and mastoid air cells are clear. The surrounding soft tissues and osseous structures are unremarkable. IMPRESSION: 1. No acute intracranial abnormality. HS:Y
--- NOTE | 2025-03-08 23:44 | DVHPN2 ---
Progress Note - Dictate Date Seen: Mar 08, 2025 Has the PT tested + for MRSA If YES, has PT been informed?: No Medical Necessity Reason Pt with a Central, PICC or Fol: Yes The following are medically ne: Noriega Catheter Reason for noriega catheter: Strict I&O Subjective Patient seen and examined at bedside. Sedated, intubated on mechanical ventilator. Overnight events reviewed. vital signs Vital Sign Date Time Temp Pulse Resp B/P (MAP) Pulse Ox O2 Delivery O2 Flow Rate FiO2 03/08/25 22:45 118 16 166/102 (123) 97 03/08/25 22:00 30 03/08/25 22:00 Mechanical Ventilator+ 03/08/25 20:00 98.4 98.4 03/06/25 18:00 30.0 Total Intake and Output 03/07/25 03/07/25 03/08/25 15:00 23:00 07:00 Intake Total 942.864 ml 728.364 ml 818.864 ml Output Total 175 ml 25 ml Balance 942.864 ml 553.364 ml 793.864 ml medications Current Medications Medications Dose Ordered Sig/Shayan Route Start Time Stop Time Status Last Admin Dose Admin Aspirin 81 mg DAILY PO 02/22/25 10:00 03/08/25 10:17 81 MG Levothyroxine Sodium 50 mcg QAM@0600 PO 02/22/25 06:00 03/08/25 05:27 50 MCG Sodium Chloride 10 ml Q8HR IV 02/22/25 06:00 03/08/25 21:32 10 ML Midazolam HCl 50 ml @ 1 mls/hr Q24H IV 02/25/25 21:30 03/07/25 03:49 7 MLS/HR Fentanyl Citrate 250 ml @ 2.5 mls/hr Q24H IV 02/25/25 21:30 03/07/25 20:03 2.5 MLS/HR Ipratropium [place] 0.5 mg Q4HR NEB 02/26/25 14:00 03/08/25 21:59 0.5 MG Piperacillin Sod/ Tazobactam Sod 100 ml @ 25 mls/hr Q12HR IV 02/26/25 22:00 03/08/25 21:29 25 MLS/HR Vancomycin HCl 0 ml @ 0 mls/hr UD IV 02/27/25 10:30 Heparin Sodium (Porcine) 5,000 units Q12HR SC 02/27/25 22:00 03/08/25 21:35 5,000 UNITS Diagnostic Test (Pha) 1 strip Q6HR 02/27/25 12:00 03/08/25 18:00 1 STRIP Insulin Human Regular Q6HR SC 02/27/25 12:00 03/05/25 18:48 2 UNITS Dextrose 50 ml UD PRN IV 02/27/25 11:45 Enteral Nutritional Formula 1,000 ml 30ML/HR GT 03/03/25 09:30 03/03/25 14:56 1,000 ML Sennosides 8.6 mg HS PO 03/03/25 22:00 03/08/25 21:31 8.6 MG Polyethylene Glycol 17 gm DAILY PO 03/03/25 18:40 03/07/25 10:04 17 GM Clonidine HCl 0.2 mg Q8HR PO 03/04/25 14:00 03/08/25 21:31 0.2 MG Propofol 100 ml @ 2.679 mls/ hr Q24H IV 03/04/25 21:45 03/08/25 21:39 2.679 MLS/HR Prazosin HCl 1 mg Q12HR PO 03/05/25 22:00 03/08/25 21:31 1 MG Famotidine 10 mg EOD IV 03/08/25 10:00 03/08/25 10:17 10 MG Doxycycline Hyclate 100 ml @ 50 mls/hr Q12H IV 03/07/25 00:00 03/08/25 11:50 50 MLS/HR Carvedilol 12.5 mg Q12HR PO 03/06/25 22:00 03/08/25 21:31 12.5 MG Bumetanide 2 mg Q8HR IV 03/06/25 22:00 03/08/25 21:30 2 MG Amlodipine Besylate 10 mg DAILY PO 03/08/25 10:00 03/08/25 10:17 10 MG Nicardipine HCl 50 mg/Sodium Chloride 250 ml @ 25 mls/hr Q10H IV 03/07/25 15:00 03/08/25 20:39 12.5 MLS/HR objective Gen.: Patient lying in bed in medical ICU. Sedated, intubated on mechanical ventilator. Head: Normocephalic, atraumatic. Eyes: PERRLA. Ears: Normal external anatomy. Throat: Endotracheal tube and orogastric tube in place. Neck: Supple, trachea midline. Chest: Transmitted breath sounds bilaterally. Decreased air entry bilaterally. No wheezing. Bibasilar crackles. Cardiovascular: Positive S1, positive S2. Regular rate and rhythm. Abdomen: Positive bowel sounds in all 4 quadrants. Soft, nontender, nondistended. : Noriega in place. Normal external genitalia. Rectal: Deferred. Skin: Warm, dry. Intact. Extremities: 2+ radial pulses bilaterally. No lower extremity edema. Neuro: Sedated. laboratory and microbiology Laboratory Tests 03/08/25 03:13 Test 03/08/25 03:13 Range/Units Serum Glucose 86 74-106 mg/dL Assessment/Plan Impression: Acute hypoxemic respiratory failure On mechanical ventilator Fluid overload Pneumonia Atelectasis Pulmonary edema Anemia ESRD, on hemodialysis Events: Remains on vent support AC mode; RR 22, tidal volume 500, PEEP 5, FiO2 30% Sedated on Propofol. Off Versed. Continue tube feeds for nutritional support On Nicardipine drip for blood pressure control. PO medications for BP control, adjusted by hospitalist. Continue antibiotics Monitor WBC Blood cultures show no growth after 5 days Sputum culture positive for MRSA. Continue bronchodilators Monitor hemoglobin BP control per Nephrology Hemodialysis per Nephrology Diurese with Bumex IV. Monitor renal function Monitor electrolytes. Supplement as needed Monitor UOP. Monitor ins and outs. Follow EEG results Plan for CT head- follow up results Follow up Neurology recommendations SBT/RIVKA. Taper sedation as tolerated Precedex drip OK for agitation. CPAP trial with PS 8, PEEP of 5 Awaiting for mentation to improve. Bronchoscopy was performed 02/26/25 for pulmonary toileting -see separate note for procedure in detail Labs and imaging reviewed Plan: On mechanical ventilation S/p intubation Titrate to maintain sats 90% or above Antibiotics Follow up cultures Bronchodilators Monitor hemoglobin Transfuse if less than 7.0 g/dL. Accu-Cheks, ISS prn. Monitor renal function F/u nephrology Management deferred HD per Nephrology Monitor electrolytes. Supplement as needed Maintain euvolemia Pressors as needed for hemodynamic support To maintain a mean arterial pressure of 65 mmHg DVT prophylaxis Prognosis: Poor given patient's multiple co-morbidities. Condition: Critical Rest of plan per hospitalist and other consultants. A total of 35 minutes of critical care time was spent reviewing the patient record, examining the patient, making a diagnostic and therapeutic plan, discussing this plan with the medical personnel, following up on diagnostic studies and following the patient for clinical stability excluding any and all procedures. At least 50% of this time was spent in direct, [id number] contact. Thank you, Dr. Bass, for allowing me to participate in this patient's care. Further recommendations will depend on the patient's clinical course. Please do not hesitate to contact me if you have any questions or concerns. This medical document was created using an electronic medical record system with [employer] dictation system. Although these documentations are being carefully reviewed, there may still be some phonetic and typographical changes. The errors are purely typographical, due to imperfection on the software program, and do not reflect any compromise in the patient's medical care. Dietary Evaluation Review Comments: 1) Initiate Nephro-Tayla @ 1 tb qd 2) If patient remains NPO > 7 days, consider EN/TPN to meet at least 75% of estimated daily needs 3) If GI route is preferred, consider Nepro CarbSteady @ 40 mL/hr goal rate as tolerated. EN regimen will provide 2222 kcals (including Propofol), 78g Pro, and 715 mL free H2O per 24 hrs. Goal rate will meet ~ 98% estimated daily energy needs and ~ 72% estimated daily protein needs 4) Advance to renal cardiac diet when medically feasible, pending ST approval 5) Follow-up with cardiology, pulmonology, and nephrology 6) Continue to monitor I&O, labs, and skin integrity Expected Outcomes/Goals: 1) patient to receive nutrition support within 7 days of NPO status 2) GI symptoms and labs to improve 3) diet to advance 4) f/u in 2-3 days Plan discussed with: Other (HEIDY Uriostegui) Critical Care Time(min): 35 BÁRBARA FISH MD Mar 08, 2025 23:44
[2025-03-09] VITALS (108 sets, daily range): BP systolic 97–174; BP diastolic 62–100; PULSE 89–133; RESP 14–29; TEMP 97.9–99.7; O2SAT 95–99
[2025-03-09 04:02] LABS: Hematocrit 29.6 % (41.0-53.0); Hemoglobin 10.3 g/dL (13.5-17.5); Mean Corpuscular Hemoglobin 30.8 pg (28.0-32.0); Mean Corpuscular Volume 88.3 fL (80.0-100.0); Nucleated Red Blood Cells % 0.0 %
[2025-03-09 04:18] LABS: INR 1.01 (0.9-1.15); Prothrombin Time 10.7 sec (9.3-11.8)
[2025-03-09 04:23] LABS: Albumin 3.3 g/dL (3.2-4.8); Anion Gap 17 (5-15); BUN/Creatinine Ratio 12.3 (10.0-20.0); Calcium 8.9 mg/dL (8.7-10.4); Carbon Dioxide 22 mmol/L (20-31); Glucose 92 mg/dL (74-106); Potassium 3.9 mmol/L (3.5-5.1)
[2025-03-09 04:24] LABS: Bilirubin, Total 0.3 mg/dL (0.2-1.0)
[2025-03-09 04:28] LABS: Chloride 94 mmol/L (98-107); Sodium 133 mmol/L (136-145)
[2025-03-09 04:29] LABS: Alanine Aminotransferase 245 U/L (7-40); Alkaline Phosphatase 249 U/L (46-116); Total Protein 5.4 g/dL (5.7-8.2)
[2025-03-09 04:30] LABS: Blood Urea Nitrogen 81 mg/dL (9-23)
[2025-03-09] MEDS: SODIUM CHL 0.9% 1000 ML BAG XX ONE (07:00)
--- NOTE | 2025-03-09 09:02 | DVHPN2 ---
Progress Note - Dictate Date Seen: Mar 09, 2025 Has the PT tested + for MRSA If YES, has PT been informed?: No Medical Necessity Reason Pt with a Central, PICC or Fol: Yes The following are medically ne: Noriega Catheter Reason for noriega catheter: Strict I&O Subjective Mr. Mercado is a 54 years old right-handed gentleman with a history of hypertension, hypothyroidism, chronic kidney failure, systemic inflammatory response syndrome, TIA, stroke with left-sided residual weakness, seizure, brain aneurysm, PTSD, a long list of drug allergy, he came to the [facility] on 02/21/2025 with a chief complaint of chest pain, but his hospital stay was complicated with elevated troponin I/heart attack, respiratory failure and he was intubated in the evening on 02/25/2025, with appropriate treatment, the patient is stabilized and improving, but is not waking up as expected. I saw him in 07/2013 for headache, 08/05/15 for intractable headache, possible TIA, 12/17/2017 for stroke I have seen and examined the patient, talked to his nurse, eyes are open, but nonresponsive to verbal stimuli Urinalysis, 02/26/2025: WBC: 4, urine leukocyte esterase: Negative ABG, 02/25/2025: Metabolic acidosis, 02/26/2025: Hypoxia, metabolic acidosis CBC, 02/21/2025, 10.7/13.1/154/83.9, 03/08/2025: 9.6/8.7/260/87.4 BUN/CR, 03/08/2025: 52/5.15 GFR, 03/08/2020 5:13 a.m. Troponin one high sensitivity, 02/22/2025: 541, 1173, 2396, 4495, 5273 TBI/AST/ALT/AP, 03/08/2025: 0.3/637/200/211 TG/HDL/LDL/HDL, 02/22/2025: 249/177/96/30 Chest x-ray, 02/25/2025: 1. Endotracheal tube in place 6.4 cm above the ivan 2. Enteric tube below the diaphragm in the stomach. 3. Cardiopulmonary findings most likely secondary to congestive failure Chest x-ray, 03/08/2025: No significant change from the previous study. Stable support devices. Unchanged endotracheal tube, enteric tube, and right IJ catheter. CT head, 02/21/2025: 1. No acute intracranial abnormality. 2. Old lacunar infarct external capsule right basal ganglia CT head, 12/18/2017: Normal noncontrast MRA of the head CT head, 03/08/2025: No acute intracranial abnormality vital signs Vital Sign Date Time Temp Pulse Resp B/P (MAP) Pulse Ox O2 Delivery O2 Flow Rate FiO2 03/09/25 08:24 174/61 03/09/25 08:00 121 03/09/25 08:00 30 03/09/25 08:00 98.4 15 98 209.1 03/09/25 08:00 Mechanical Ventilator+ Total Intake and Output 03/08/25 03/08/25 03/09/25 15:00 23:00 07:00 Intake Total 204.469 ml 493.932 ml 831.432 ml Output Total 40 ml 20 ml Balance 204.469 ml 453.932 ml 811.432 ml medications Current Medications Medications Dose Ordered Sig/Shayan Route Start Time Stop Time Status Last Admin Dose Admin Aspirin 81 mg DAILY PO 02/22/25 10:00 03/08/25 10:17 81 MG Levothyroxine Sodium 50 mcg QAM@0600 PO 02/22/25 06:00 03/09/25 05:44 50 MCG Sodium Chloride 10 ml Q8HR IV 02/22/25 06:00 03/09/25 05:44 10 ML Midazolam HCl 50 ml @ 1 mls/hr Q24H IV 02/25/25 21:30 03/07/25 03:49 7 MLS/HR Fentanyl Citrate 250 ml @ 2.5 mls/hr Q24H IV 02/25/25 21:30 03/07/25 20:03 2.5 MLS/HR Ipratropium [place] 0.5 mg Q4HR NEB 02/26/25 14:00 03/09/25 06:03 0.5 MG Piperacillin Sod/ Tazobactam Sod 100 ml @ 25 mls/hr Q12HR IV 02/26/25 22:00 03/08/25 21:29 25 MLS/HR Vancomycin HCl 0 ml @ 0 mls/hr UD IV 02/27/25 10:30 Heparin Sodium (Porcine) 5,000 units Q12HR SC 02/27/25 22:00 03/08/25 21:35 5,000 UNITS Diagnostic Test (Pha) 1 strip Q6HR 02/27/25 12:00 03/09/25 05:45 1 STRIP Insulin Human Regular Q6HR SC 02/27/25 12:00 03/05/25 18:48 2 UNITS Dextrose 50 ml UD PRN IV 02/27/25 11:45 Enteral Nutritional Formula 1,000 ml 30ML/HR GT 03/03/25 09:30 03/03/25 14:56 1,000 ML Sennosides 8.6 mg HS PO 03/03/25 22:00 03/08/25 21:31 8.6 MG Polyethylene Glycol 17 gm DAILY PO 03/03/25 18:40 03/07/25 10:04 17 GM Clonidine HCl 0.2 mg Q8HR PO 03/04/25 14:00 03/09/25 05:44 0.2 MG Propofol 100 ml @ 2.679 mls/ hr Q24H IV 03/04/25 21:45 03/08/25 21:39 2.679 MLS/HR Prazosin HCl 1 mg Q12HR PO 03/05/25 22:00 03/08/25 21:31 1 MG Famotidine 10 mg EOD IV 03/08/25 10:00 03/08/25 10:17 10 MG Doxycycline Hyclate 100 ml @ 50 mls/hr Q12H IV 03/07/25 00:00 03/09/25 00:16 50 MLS/HR Carvedilol 12.5 mg Q12HR PO 03/06/25 22:00 03/08/25 21:31 12.5 MG Bumetanide 2 mg Q8HR IV 03/06/25 22:00 03/09/25 05:44 2 MG Amlodipine Besylate 10 mg DAILY PO 03/08/25 10:00 03/08/25 10:17 10 MG Nicardipine HCl 50 mg/Sodium Chloride 250 ml @ 25 mls/hr Q10H IV 03/07/25 15:00 03/08/25 20:39 12.5 MLS/HR objective General: the patient is well developed and nourished. No acute distress. Intubated MENTAL STATUS: Subjective SPEECH, LANGUAGE, HIGHER CORTICAL FUNCTION: Intubated CRANIAL NERVES: Pupils are equal, round and reactive. There is conjugated rolling eye movement. Facial sensation intact in all three divisions bilaterally. Mandibular strength intact. Facial muscles symmetrical and strength intact. SENSATION: Okay to painful stimuli MOTOR: Normal tone in the upper and lower extremity. Normal muscle bulk. No fasciculations. No abnormal movements or posturing. He moves the arms and legs a little bit REFLEXES: Deep tendon reflexes normal and symmetrical. No pathological reflexes. CEREBELLAR/COORDINATION: Deferred GAIT: Deferred laboratory and microbiology Laboratory Tests 03/09/25 02:57 Test 03/09/25 02:57 Range/Units Serum Glucose 92 74-106 mg/dL Problem List Altered mental status Metabolic encephalopathy Hypoxic encephalopathy Toxic encephalopathy Acute respiratory failure, status post intubation Elevated troponin one/heart attack Acute kidney failure on hemodialysis Elevated stiff function tests Multiple strokes/TIA with residual left-sided weakness Polyneuropathy Assessment/Plan Monitoring Supportive treatment EEG ICU care Stabilize vitals Respiratory support/vent management Oxygen IV antibiotics Aspirin 81 mg daily GI prophylaxis/famotidine DVT prophylaxis Oxygen Antibiotics Nephrology on case/Hemodialysis Cardiology on case Pulmonology on case More recommendation per clinical course This medical document was created using an electronic medical record system with [employer] dictation system. Although this document has been carefully reviewed, there may still be some phonetic and typographical errors. These areas are purely typographical due to imperfections of the software programs, and do not reflect any compromise in the patient's medical care. Prognosis guarded Dietary Evaluation Review Comments: 1) Initiate Nephro-Tayla @ 1 tb qd 2) If patient remains NPO > 7 days, consider EN/TPN to meet at least 75% of estimated daily needs 3) If GI route is preferred, consider Nepro CarbSteady @ 40 mL/hr goal rate as tolerated. EN regimen will provide 2222 kcals (including Propofol), 78g Pro, and 715 mL free H2O per 24 hrs. Goal rate will meet ~ 98% estimated daily energy needs and ~ 72% estimated daily protein needs 4) Advance to renal cardiac diet when medically feasible, pending ST approval 5) Follow-up with cardiology, pulmonology, and nephrology 6) Continue to monitor I&O, labs, and skin integrity Expected Outcomes/Goals: 1) patient to receive nutrition support within 7 days of NPO status 2) GI symptoms and labs to improve 3) diet to advance 4) f/u in 2-3 days Plan discussed with: Other Critical Care Time(min): 35 ERASMO CHO MD Mar 09, 2025 09:02
--- NOTE | 2025-03-09 14:19 | DVHPN2 ---
Progress Note - Dictate Date Seen: Mar 09, 2025 Has the PT tested + for MRSA If YES, has PT been informed?: No Medical Necessity Reason Pt with a Central, PICC or Fol: Yes The following are medically ne: Noriega Catheter Reason for noriega catheter: Strict I&O Subjective Patient is intubated and sedated. His is at bedside. She states that she gets nauseous too many medications including clonidine p.o. and he has been on clonidine patch for 40 years or so which was not completely controlling his blood pressure. vital signs Vital Sign Date Time Temp Pulse Resp B/P (MAP) Pulse Ox O2 Delivery O2 Flow Rate FiO2 03/09/25 13:31 109 22 112/71 (85) 97 30 03/09/25 08:00 98.4 209.1 03/09/25 08:00 Mechanical Ventilator+ Total Intake and Output 03/08/25 03/08/25 03/09/25 15:00 23:00 07:00 Intake Total 204.469 ml 493.932 ml 831.432 ml Output Total 40 ml 20 ml Balance 204.469 ml 453.932 ml 811.432 ml medications Current Medications Medications Dose Ordered Sig/Shayan Route Start Time Stop Time Status Last Admin Dose Admin Aspirin 81 mg DAILY PO 02/22/25 10:00 03/09/25 11:11 81 MG Levothyroxine Sodium 50 mcg QAM@0600 PO 02/22/25 06:00 03/09/25 05:44 50 MCG Sodium Chloride 10 ml Q8HR IV 02/22/25 06:00 03/09/25 05:44 10 ML Midazolam HCl 50 ml @ 1 mls/hr Q24H IV 02/25/25 21:30 03/07/25 03:49 7 MLS/HR Fentanyl Citrate 250 ml @ 2.5 mls/hr Q24H IV 02/25/25 21:30 03/07/25 20:03 2.5 MLS/HR Ipratropium [place] 0.5 mg Q4HR NEB 02/26/25 14:00 03/09/25 09:47 0.5 MG Piperacillin Sod/ Tazobactam Sod 100 ml @ 25 mls/hr Q12HR IV 02/26/25 22:00 03/09/25 11:03 25 MLS/HR Vancomycin HCl 0 ml @ 0 mls/hr UD IV 02/27/25 10:30 Heparin Sodium (Porcine) 5,000 units Q12HR SC 02/27/25 22:00 03/09/25 11:05 5,000 UNITS Diagnostic Test (Pha) 1 strip Q6HR 02/27/25 12:00 03/09/25 12:10 1 STRIP Insulin Human Regular Q6HR SC 02/27/25 12:00 03/05/25 18:48 2 UNITS Dextrose 50 ml UD PRN IV 02/27/25 11:45 Enteral Nutritional Formula 1,000 ml 30ML/HR GT 03/03/25 09:30 03/03/25 14:56 1,000 ML Sennosides 8.6 mg HS PO 03/03/25 22:00 03/08/25 21:31 8.6 MG Polyethylene Glycol 17 gm DAILY PO 03/03/25 18:40 03/07/25 10:04 17 GM Clonidine HCl 0.2 mg Q8HR PO 03/04/25 14:00 03/09/25 05:44 0.2 MG Propofol 100 ml @ 2.679 mls/ hr Q24H IV 03/04/25 21:45 03/09/25 10:36 16.074 MLS/HR Prazosin HCl 1 mg Q12HR PO 03/05/25 22:00 03/09/25 11:10 1 MG Famotidine 10 mg EOD IV 03/08/25 10:00 03/08/25 10:17 10 MG Doxycycline Hyclate 100 ml @ 50 mls/hr Q12H IV 03/07/25 00:00 03/09/25 00:16 50 MLS/HR Carvedilol 12.5 mg Q12HR PO 03/06/25 22:00 03/09/25 11:11 12.5 MG Bumetanide 2 mg Q8HR IV 03/06/25 22:00 03/09/25 05:44 2 MG Amlodipine Besylate 10 mg DAILY PO 03/08/25 10:00 03/09/25 11:09 10 MG Nicardipine HCl 50 mg/Sodium Chloride 250 ml @ 25 mls/hr Q10H IV 03/07/25 15:00 03/09/25 10:35 50 MLS/HR Minoxidil 2.5 mg DAILY PO 03/10/25 10:00 objective HEENT: ET tube in place Pulmonary: Lungs diminished on auscultation bilaterally Cardiovascular S1-S2, no S3 or S4 Abdomen: Bowel sounds positive, soft no rebound tenderness Skin: No rash Neurological: Sedated laboratory and microbiology Laboratory Tests 03/09/25 02:57 Test 03/09/25 02:57 Range/Units Serum Glucose 92 74-106 mg/dL Assessment/Plan Assessment Severe CHANDRA secondary to hypertensive crisis and end organ damage CKD stage 4 is his baseline HTN emergency, patient has historically refused oral anti hypertensives due to multiple "allergies" and side effects Endorsed poor tolerance to multiple antihypertensive meds Multiple cardiology and nephrology evaluations at [facility], [facility], etc have not helped him because he "cannot take any anti hypertensives orally" He was offered nephrectomy and HD at [facility] recently but declined He was sent for renal denervation and or osmar-receptor stimulation therapy but he could not get access to this Acute hypoxic respiratory failure on supplemental oxygen Pneumonia Bacteremia gram positive cocci elevated troponin, r/o NSTEMI h/o carotid artery stenosis s/p stent h/o TIA Hypothyroidism PTSD Assessment/Plan Hemodialysis was completed Sunday and today with UF today of 3 L Plan for HD Sunday Minoxidil was started today, on low-dose amlodipine, carvedilol. Consider resuming clonidine patch 0.3 mg weekly if needed On prazosin Continue with nicardipine drip. Titrate down as tolerated Continue with Bumex 2 mg IV q.8 hours No evidence of renal recovery. Patient will need a tunneled catheter placement. We will consult IR for the same. Plan of care from Nephrology standpoint discussed with the at bedside in addition to the hospitalist today Dietary Evaluation Review Comments: 1) Initiate Nephro-Tayla @ 1 tb qd 2) If patient remains NPO > 7 days, consider EN/TPN to meet at least 75% of estimated daily needs 3) If GI route is preferred, consider Nepro CarbSteady @ 40 mL/hr goal rate as tolerated. EN regimen will provide 2222 kcals (including Propofol), 78g Pro, and 715 mL free H2O per 24 hrs. Goal rate will meet ~ 98% estimated daily energy needs and ~ 72% estimated daily protein needs 4) Advance to renal cardiac diet when medically feasible, pending ST approval 5) Follow-up with cardiology, pulmonology, and nephrology 6) Continue to monitor I&O, labs, and skin integrity Expected Outcomes/Goals: 1) patient to receive nutrition support within 7 days of NPO status 2) GI symptoms and labs to improve 3) diet to advance 4) f/u in 2-3 days Plan discussed with: Patient, Spouse BETI ALEXANDER MD Mar 09, 2025 14:19
--- NOTE | 2025-03-09 15:14 | DVHPN2 ---
Assessment/Plan Assessment/Plan ICU note 54 M with resistant HTN (with noted allergies but reported making him feel "very sick", no anaphylaxis hx), CKD4, carotid artery stenosis s/p stenting, TIAs, thyroid disease. intubated for acute hypoxic RF 2/2 pulm edema. currently on HD. clean coronaries in 2022. prior plan for BAT and renal denervations. seen today. continue with desensitization. adding minoxidil. titrating up bp meds. daily sat sbt, plan for extubation in the upcoming days if no further complications. discussed with . physical exam intubated, sedated on mech vent PERLLA moving to pain s1 s2 rrr mechanical breath sounds abdomen soft trace le edema labs ekg imaging reviewed assessment and plan acute hypoxic RF req mech vent aspiration PNA gp vs gn CHANDRA ATN on CKD on HD HTN emergency pulmonary edema type 2 OK demand ischemia and decreased renal clearance GPC bacteremia c/w mech vent daily SAT SBT maintain sbp <150, c/w nicardipine HD per renal, bumex per renal c/w vanc Zosyn start nepro start oral anti htn (will have to use alternatives for allergies?) now on prazosin, clonidine, coreg and minoxidil dc hydrocortisone diet nepro dvt ppx heprain gi ppx pepcid condition critical prognosis poor critical care time 55 minutes Plan discussed with: Spouse My Orders Orders - DION ROSA MD Procedure Category Date Status Time Minoxidil Tablet PHA 03/10/25 In Process (Loniten Tablet) 10:00 Basic Metabolic Panel LAB 03/10/25 Verified 04:00 Complete Blood Count LAB 03/10/25 Verified 04:00 Sedation Vacation CEDRIC 03/09/25 Transmitted 15:11 Cpap Trial For Am ORDERS 03/09/25 Transmitted 15:11 Date of Service: Mar 09, 2025 Billing Provider: DION ROSA MD Common Visit Codes: 31887-[id number] CARE 30-74 MIN DION ROSA MD Mar 09, 2025 15:14
[2025-03-09] MEDS: VANCOMYCIN 500mg/100mL 100 ML IV ONE (15:35)
[2025-03-09] MEDS: EPOETIN ALFA-EPBX 10,000 UNIT/1ML VIAL SC ONE (22:52)
--- NOTE | 2025-03-09 23:18 | DVHPN2 ---
Progress Note - Dictate Date Seen: Mar 09, 2025 Has the PT tested + for MRSA If YES, has PT been informed?: No Medical Necessity Reason Pt with a Central, PICC or Fol: Yes The following are medically ne: Noriega Catheter Reason for noriega catheter: Strict I&O Subjective Patient seen and examined at bedside. Sedated, intubated on mechanical ventilator. Overnight events reviewed. vital signs Vital Sign Date Time Temp Pulse Resp B/P (MAP) Pulse Ox O2 Delivery O2 Flow Rate FiO2 03/09/25 22:05 94 22 117/71 (86) 99 30 03/09/25 20:00 Mechanical Ventilator+ 03/09/25 19:00 98.6 209.5 Total Intake and Output 03/08/25 03/08/25 03/09/25 15:00 23:00 07:00 Intake Total 204.469 ml 493.932 ml 831.432 ml Output Total 40 ml 20 ml Balance 204.469 ml 453.932 ml 811.432 ml medications Current Medications Medications Dose Ordered Sig/Shayan Route Start Time Stop Time Status Last Admin Dose Admin Aspirin 81 mg DAILY PO 02/22/25 10:00 03/09/25 11:11 81 MG Levothyroxine Sodium 50 mcg QAM@0600 PO 02/22/25 06:00 03/09/25 05:44 50 MCG Sodium Chloride 10 ml Q8HR IV 02/22/25 06:00 03/09/25 21:36 10 ML Midazolam HCl 50 ml @ 1 mls/hr Q24H IV 02/25/25 21:30 03/07/25 03:49 7 MLS/HR Fentanyl Citrate 250 ml @ 2.5 mls/hr Q24H IV 02/25/25 21:30 03/07/25 20:03 2.5 MLS/HR Ipratropium [place] 0.5 mg Q4HR NEB 02/26/25 14:00 03/09/25 22:05 0.5 MG Piperacillin Sod/ Tazobactam Sod 100 ml @ 25 mls/hr Q12HR IV 02/26/25 22:00 03/09/25 21:36 25 MLS/HR Vancomycin HCl 0 ml @ 0 mls/hr UD IV 02/27/25 10:30 Heparin Sodium (Porcine) 5,000 units Q12HR SC 02/27/25 22:00 03/09/25 21:39 5,000 UNITS Diagnostic Test (Pha) 1 strip Q6HR 02/27/25 12:00 03/09/25 17:46 1 STRIP Insulin Human Regular Q6HR SC 02/27/25 12:00 03/05/25 18:48 2 UNITS Dextrose 50 ml UD PRN IV 02/27/25 11:45 Enteral Nutritional Formula 1,000 ml 30ML/HR GT 03/03/25 09:30 03/03/25 14:56 1,000 ML Sennosides 8.6 mg HS PO 03/03/25 22:00 03/08/25 21:31 8.6 MG Polyethylene Glycol 17 gm DAILY PO 03/03/25 18:40 03/07/25 10:04 17 GM Clonidine HCl 0.2 mg Q8HR PO 03/04/25 14:00 03/09/25 14:49 0.2 MG Propofol 100 ml @ 2.679 mls/ hr Q24H IV 03/04/25 21:45 03/09/25 20:41 5.358 MLS/HR Prazosin HCl 1 mg Q12HR PO 03/05/25 22:00 03/09/25 11:10 1 MG Famotidine 10 mg EOD IV 03/08/25 10:00 03/08/25 10:17 10 MG Doxycycline Hyclate 100 ml @ 50 mls/hr Q12H IV 03/07/25 00:00 03/09/25 14:46 50 MLS/HR Carvedilol 12.5 mg Q12HR PO 03/06/25 22:00 03/09/25 21:37 12.5 MG Bumetanide 2 mg Q8HR IV 03/06/25 22:00 03/09/25 21:36 2 MG Amlodipine Besylate 10 mg DAILY PO 03/08/25 10:00 03/09/25 11:09 10 MG Nicardipine HCl 50 mg/Sodium Chloride 250 ml @ 25 mls/hr Q10H IV 03/07/25 15:00 03/09/25 10:35 50 MLS/HR Minoxidil 2.5 mg DAILY PO 03/10/25 10:00 objective Gen.: Patient lying in bed in medical ICU. Sedated, intubated on mechanical ventilator. Head: Normocephalic, atraumatic. Eyes: PERRLA. Ears: Normal external anatomy. Throat: Endotracheal tube and orogastric tube in place. Neck: Supple, trachea midline. Chest: Transmitted breath sounds bilaterally. Decreased air entry bilaterally. No wheezing. Bibasilar crackles. Cardiovascular: Positive S1, positive S2. Regular rate and rhythm. Abdomen: Positive bowel sounds in all 4 quadrants. Soft, nontender, nondistended. : Noriega in place. Normal external genitalia. Rectal: Deferred. Skin: Warm, dry. Intact. Extremities: 2+ radial pulses bilaterally. No lower extremity edema. Neuro: Sedated. laboratory and microbiology Laboratory Tests 03/09/25 02:57 Test 03/09/25 02:57 Range/Units Serum Glucose 92 74-106 mg/dL Assessment/Plan Impression: Acute hypoxemic respiratory failure On mechanical ventilator Fluid overload Pneumonia Atelectasis Pulmonary edema Anemia ESRD, on hemodialysis Events: Remains on vent support AC mode; RR 22, tidal volume 500, PEEP 5, FiO2 30% Sedated on Propofol. Fentanyl drip for sedation Continue tube feeds for nutritional support Blood pressure control Currently off Nicardipine drip Continue antibiotics Monitor WBC Blood cultures show no growth after 5 days Sputum culture positive for MRSA. Continue bronchodilators Monitor hemoglobin BP control per Nephrology Hemodialysis per Nephrology Diurese with Bumex IV. Monitor renal function Monitor electrolytes. Supplement as needed Monitor UOP. Monitor ins and outs. Follow up EEG results CT head reveals no ICH or stroke. Follow up Neurology recommendations SBT/RIVKA. Taper sedation as tolerated - plan for CPAP in AM. Precedex drip OK for agitation. CPAP trial with PS 8, PEEP of 5 Bronchoscopy was performed 02/26/25 for pulmonary toileting -see separate note for procedure in detail Labs and imaging reviewed Plan: On mechanical ventilation S/p intubation Titrate to maintain sats 90% or above Antibiotics Follow up cultures Bronchodilators Monitor hemoglobin Transfuse if less than 7.0 g/dL. Accu-Cheks, ISS prn. Monitor renal function F/u nephrology Management deferred HD per Nephrology Monitor electrolytes. Supplement as needed Maintain euvolemia Pressors as needed for hemodynamic support To maintain a mean arterial pressure of 65 mmHg DVT prophylaxis Prognosis: Poor given patient's multiple co-morbidities. Condition: Critical Rest of plan per hospitalist and other consultants. A total of 35 minutes of critical care time was spent reviewing the patient record, examining the patient, making a diagnostic and therapeutic plan, discussing this plan with the medical personnel, following up on diagnostic studies and following the patient for clinical stability excluding any and all procedures. At least 50% of this time was spent in direct, [id number] contact. Thank you, Dr. Bass, for allowing me to participate in this patient's care. Further recommendations will depend on the patient's clinical course. Please do not hesitate to contact me if you have any questions or concerns. This medical document was created using an electronic medical record system with [employer] dictation system. Although these documentations are being carefully reviewed, there may still be some phonetic and typographical changes. The errors are purely typographical, due to imperfection on the software program, and do not reflect any compromise in the patient's medical care. Dietary Evaluation Review Comments: 1) Initiate Nephro-Tayla @ 1 tb qd 2) If patient remains NPO > 7 days, consider EN/TPN to meet at least 75% of estimated daily needs 3) If GI route is preferred, consider Nepro CarbSteady @ 40 mL/hr goal rate as tolerated. EN regimen will provide 2222 kcals (including Propofol), 78g Pro, and 715 mL free H2O per 24 hrs. Goal rate will meet ~ 98% estimated daily energy needs and ~ 72% estimated daily protein needs 4) Advance to renal cardiac diet when medically feasible, pending ST approval 5) Follow-up with cardiology, pulmonology, and nephrology 6) Continue to monitor I&O, labs, and skin integrity Expected Outcomes/Goals: 1) patient to receive nutrition support within 7 days of NPO status 2) GI symptoms and labs to improve 3) diet to advance 4) f/u in 2-3 days Plan discussed with: Other (HEIDY Monahan) Critical Care Time(min): 35 BÁRBARA FISH MD Mar 09, 2025 23:18
[2025-03-10] VITALS (105 sets, daily range): BP systolic 111–161; BP diastolic 71–102; PULSE 89–112; RESP 12–26; TEMP 97.5–99.1; O2SAT 96–99
--- NOTE | 2025-03-10 00:26 | DVHEEG2 ---
Neurology EEG Procedural Note Procedural Note EXAM DATE: 03/09/2025 REFERRING DOCTOR: Dr. Cho TECHNIQUE: Eighteen channels of EEG, 2 channels of EOG, and 1 channel of EKG were recorded using the International 10/20 system. CLINICAL DATA: The patient was referred for an EEG evaluation for the evidence of seizure disorder. MEDICATIONS: See the chart BACKGROUND ACTIVITY: There was significant amount of electrode artifacts in the recording the EEG appeared to be diffuse low amplitude theta activity over both hemispheres, that was reactive to external stimuli ACTIVATION: Hyperventilation: Not done Photic Stimulation: Not done Sleep: Nonresponsiveness IMPRESSION: This is a mildly abnormal EEG, this EEG is seen in mild cerebral dysfunction due to metabolic/hypoxic encephalopathy or medication effect, please correlate clinically. The EKG channel showed a regular heart rate of 108 per minute [place] [address] ERASMO CHO MD Mar 10, 2025 00:26
[2025-03-10 03:49] LABS: Hematocrit 23.2 % (41.0-53.0)
[2025-03-10 03:52] LABS: Hemoglobin 8.2 g/dL (13.5-17.5); Mean Corpuscular Hemoglobin 31.9 pg (28.0-32.0); Mean Corpuscular Volume 90.2 fL (80.0-100.0); Nucleated Red Blood Cells % 0.1 %
[2025-03-10 04:00] LABS: Chloride 97 mmol/L (98-107); Potassium 3.7 mmol/L (3.5-5.1); Sodium 136 mmol/L (136-145)
[2025-03-10 04:01] LABS: Anion Gap 14 (5-15); Carbon Dioxide 25 mmol/L (20-31)
[2025-03-10 04:06] LABS: Calcium 8.3 mg/dL (8.7-10.4); Glucose 91 mg/dL (74-106)
[2025-03-10 04:07] LABS: BUN/Creatinine Ratio 12.9 (10.0-20.0); Blood Urea Nitrogen 78 mg/dL (9-23)
[2025-03-10 04:53] LABS: INR 1.18 (0.9-1.15); Partial Thromboplastin Time < 20.0 SEC (24.5-34.5); Prothrombin Time 12.3 sec (9.3-11.8)
[2025-03-10 07:17] LABS: Base Excess -1.2 mmol/L (-2.0-3.0)
[2025-03-10] MEDS: MINOXIDIL 2.5 MG TAB PO SCH (09:32)
--- NOTE | 2025-03-10 10:25 | DVHPN2 ---
Progress Note - Dictate Date Seen: Mar 10, 2025 Has the PT tested + for MRSA If YES, has PT been informed?: No Medical Necessity Reason Pt with a Central, PICC or Fol: Yes The following are medically ne: Noriega Catheter Reason for noriega catheter: Strict I&O Subjective Mr. Mercado is a 54 years old right-handed gentleman with a history of hypertension, hypothyroidism, chronic kidney failure, systemic inflammatory response syndrome, TIA, stroke with left-sided residual weakness, seizure, brain aneurysm, PTSD, a long list of drug allergy, he came to the [facility] on 02/21/2025 with a chief complaint of chest pain, but his hospital stay was complicated with elevated troponin I/heart attack, respiratory failure and he was intubated in the evening on 02/25/2025, with appropriate treatment, the patient is stabilized and improving, but is not waking up as expected. I saw him in 07/2013 for headache, 08/05/15 for intractable headache, possible TIA, 12/17/2017 for stroke I have seen and examined the patient, talked to his nurse and , eyes are open, but nonresponsive to my verbal commands relates the patient was responsive to her verbal commands He is to have tunnel cath insertion today Fentanyl 25 mcg/hour, propofol 10 mcg/minute Urinalysis, 02/26/2025: WBC: 4, urine leukocyte esterase: Negative ABG, 02/25/2025: Metabolic acidosis, 02/26/2025: Hypoxia, metabolic acidosis CBC, 02/21/2025, 10.7/13.1/154/83.9, 03/08/2025: 9.6/8.7/260/87.4 BUN/CR, 03/08/2025: 52/5.15 GFR, 03/08/2020 5:13 a.m. Troponin one high sensitivity, 02/22/2025: 541, 1173, 2396, 4495, 5273 TBI/AST/ALT/AP, 03/08/2025: 0.3/637/200/211 TG/HDL/LDL/HDL, 02/22/2025: 249/177/96/30 Chest x-ray, 02/25/2025: 1. Endotracheal tube in place 6.4 cm above the ivan 2. Enteric tube below the diaphragm in the stomach. 3. Cardiopulmonary findings most likely secondary to congestive failure Chest x-ray, 03/08/2025: No significant change from the previous study. Stable support devices. Unchanged endotracheal tube, enteric tube, and right IJ catheter. CT head, 02/21/2025: 1. No acute intracranial abnormality. 2. Old lacunar infarct external capsule right basal ganglia CT head, 12/18/2017: Normal noncontrast MRA of the head CT head, 03/08/2025: No acute intracranial abnormality vital signs Vital Sign Date Time Temp Pulse Resp B/P (MAP) Pulse Ox O2 Delivery O2 Flow Rate FiO2 03/10/25 09:32 133/86 03/10/25 09:29 102 03/10/25 08:45 98.8 22 98 209.8 03/10/25 08:02 30 03/10/25 08:00 Mechanical Ventilator+ Total Intake and Output 03/09/25 03/09/25 03/10/25 15:00 23:00 07:00 Intake Total 504.006 ml 672.864 ml 558.756 ml Output Total 15 ml 10 ml Balance 504.006 ml 657.864 ml 548.756 ml medications Current Medications Medications Dose Ordered Sig/Shayan Route Start Time Stop Time Status Last Admin Dose Admin Aspirin 81 mg DAILY PO 02/22/25 10:00 03/10/25 09:29 81 MG Levothyroxine Sodium 50 mcg QAM@0600 PO 02/22/25 06:00 03/10/25 05:04 50 MCG Sodium Chloride 10 ml Q8HR IV 02/22/25 06:00 03/09/25 21:36 10 ML Midazolam HCl 50 ml @ 1 mls/hr Q24H IV 02/25/25 21:30 03/07/25 03:49 7 MLS/HR Fentanyl Citrate 250 ml @ 2.5 mls/hr Q24H IV 02/25/25 21:30 03/09/25 23:44 12.5 MLS/HR Ipratropium [place] 0.5 mg Q4HR NEB 02/26/25 14:00 03/10/25 05:51 0.5 MG Vancomycin HCl 0 ml @ 0 mls/hr UD IV 02/27/25 10:30 Heparin Sodium (Porcine) 5,000 units Q12HR SC 02/27/25 22:00 03/09/25 21:39 5,000 UNITS Diagnostic Test (Pha) 1 strip Q6HR 02/27/25 12:00 03/10/25 05:08 1 STRIP Insulin Human Regular Q6HR SC 02/27/25 12:00 03/05/25 18:48 2 UNITS Dextrose 50 ml UD PRN IV 02/27/25 11:45 Enteral Nutritional Formula 1,000 ml 30ML/HR GT 03/03/25 09:30 03/03/25 14:56 1,000 ML Sennosides 8.6 mg HS PO 03/03/25 22:00 03/08/25 21:31 8.6 MG Polyethylene Glycol 17 gm DAILY PO 03/03/25 18:40 03/07/25 10:04 17 GM Clonidine HCl 0.2 mg Q8HR PO 03/04/25 14:00 03/10/25 05:04 0.2 MG Propofol 100 ml @ 2.679 mls/ hr Q24H IV 03/04/25 21:45 03/10/25 09:34 5.358 MLS/HR Prazosin HCl 1 mg Q12HR PO 03/05/25 22:00 03/10/25 09:30 1 MG Famotidine 10 mg EOD IV 03/08/25 10:00 03/10/25 09:31 10 MG Doxycycline Hyclate 100 ml @ 50 mls/hr Q12H IV 03/07/25 00:00 03/10/25 01:12 50 MLS/HR Carvedilol 12.5 mg Q12HR PO 03/06/25 22:00 03/10/25 09:29 12.5 MG Bumetanide 2 mg Q8HR IV 03/06/25 22:00 03/10/25 05:05 2 MG Amlodipine Besylate 10 mg DAILY PO 03/08/25 10:00 03/10/25 09:30 10 MG Nicardipine HCl 50 mg/Sodium Chloride 250 ml @ 25 mls/hr Q10H IV 03/07/25 15:00 03/09/25 10:35 50 MLS/HR Minoxidil 2.5 mg DAILY PO 03/10/25 10:00 03/10/25 09:32 2.5 MG objective General: the patient is well developed and nourished. No acute distress. Intubated MENTAL STATUS: Subjective SPEECH, LANGUAGE, HIGHER CORTICAL FUNCTION: Intubated CRANIAL NERVES: Pupils are equal, round and reactive. There is conjugated rolling eye movement. Facial sensation intact in all three divisions bilaterally. Mandibular strength intact. Facial muscles symmetrical and strength intact. SENSATION: Okay to painful stimuli MOTOR: Normal tone in the upper and lower extremity. Normal muscle bulk. No fasciculations. No abnormal movements or posturing. He moves the arms and legs a little bit REFLEXES: Deep tendon reflexes normal and symmetrical. No pathological reflexes. CEREBELLAR/COORDINATION: Deferred GAIT: Deferred laboratory and microbiology Laboratory Tests 03/10/25 03:09 Test 03/10/25 03:09 Range/Units Serum Glucose 91 74-106 mg/dL Problem List Altered mental status Metabolic encephalopathy Hypoxic encephalopathy Toxic encephalopathy Acute respiratory failure, status post intubation Elevated troponin one/heart attack Acute kidney failure on hemodialysis Elevated stiff function tests Multiple strokes/TIA with residual left-sided weakness Polyneuropathy Assessment/Plan Monitoring Supportive treatment EEG ICU care Stabilize vitals Respiratory support/vent management Oxygen IV antibiotics Aspirin 81 mg daily GI prophylaxis/famotidine DVT prophylaxis Oxygen Antibiotics Nephrology on case/Hemodialysis Cardiology on case Pulmonology on case More recommendation per clinical course This medical document was created using an electronic medical record system with [employer] computerized dictation system. Although this document has been carefully reviewed, there may still be some phonetic and typographical errors. These areas are purely typographical due to imperfections of the software programs, and do not reflect any compromise in the patient's medical care. Prognosis guarded Dietary Evaluation Review Comments: 1) Initiate Nephro-Tayla @ 1 tb qd 2) If patient remains NPO > 7 days, consider EN/TPN to meet at least 75% of estimated daily needs 3) If GI route is preferred, consider Nepro CarbSteady @ 40 mL/hr goal rate as tolerated. EN regimen will provide 2222 kcals (including Propofol), 78g Pro, and 715 mL free H2O per 24 hrs. Goal rate will meet ~ 98% estimated daily energy needs and ~ 72% estimated daily protein needs 4) Advance to renal cardiac diet when medically feasible, pending ST approval 5) Follow-up with cardiology, pulmonology, and nephrology 6) Continue to monitor I&O, labs, and skin integrity Expected Outcomes/Goals: 1) patient to receive nutrition support within 7 days of NPO status 2) GI symptoms and labs to improve 3) diet to advance 4) f/u in 2-3 days Plan discussed with: Spouse, Other Critical Care Time(min): 30 ERASMO CHO MD Mar 10, 2025 10:25
--- NOTE | 2025-03-10 15:31 | DVHPN2 ---
Assessment/Plan Assessment/Plan ICU note 54 M with resistant HTN (with noted allergies but reported making him feel "very sick", no anaphylaxis hx), CKD4, carotid artery stenosis s/p stenting, TIAs, thyroid disease. intubated for acute hypoxic RF 2/2 pulm edema. currently on HD. clean coronaries in 2022. prior plan for BAT and renal denervations. seen today. off nicardipine drip, titrating bp meds. cpap trial, sedation vacation. physical exam intubated, sedated on mech vent PERLLA moving to pain s1 s2 rrr mechanical breath sounds abdomen soft trace le edema labs ekg imaging reviewed assessment and plan acute hypoxic RF req mech vent aspiration PNA gp vs gn CHANDRA ATN on CKD on HD HTN emergency pulmonary edema type 2 AL demand ischemia and decreased renal clearance GPC bacteremia c/w mech vent daily SAT SBT maintain sbp <150, c/w nicardipine HD per renal, bumex per renal c/w vanc Zosyn start nepro start oral anti htn (will have to use alternatives for allergies?) now on prazosin, clonidine, coreg and minoxidil dc hydrocortisone diet nepro dvt ppx heprain gi ppx pepcid condition critical prognosis poor critical care time 55 minutes Plan discussed with: Spouse, Other My Orders Orders - DION ROSA MD Procedure Category Date Status Time Abg W/ Co-Ox RT 03/10/25 Logged 05:07 Date of Service: Mar 10, 2025 Billing Provider: DION ROSA MD Common Visit Codes: [id number] CARE 30-74 MIN DION ROSA MD Mar 10, 2025 15:31
--- NOTE | 2025-03-10 16:43 | DVHPN2 ---
Progress Note - Dictate Date Seen: Mar 10, 2025 Has the PT tested + for MRSA If YES, has PT been informed?: No Medical Necessity Reason Pt with a Central, PICC or Fol: Yes The following are medically ne: Noriega Catheter Reason for noriega catheter: Strict I&O Subjective Patient remains intubated no acute events he has been off of the nicardipine drip for at least 24 hours and tolerating well current antihypertensive regimen with no evidence of any allergic reaction. vital signs Vital Sign Date Time Temp Pulse Resp B/P (MAP) Pulse Ox O2 Delivery O2 Flow Rate FiO2 03/10/25 15:48 100 22 122/80 (94) 97 30 03/10/25 15:30 98.4 209.1 03/10/25 14:00 Mechanical Ventilator+ Total Intake and Output 03/09/25 03/09/25 03/10/25 15:00 23:00 07:00 Intake Total 504.006 ml 672.864 ml 558.756 ml Output Total 15 ml 10 ml Balance 504.006 ml 657.864 ml 548.756 ml medications Current Medications Medications Dose Ordered Sig/Shayan Route Start Time Stop Time Status Last Admin Dose Admin Aspirin 81 mg DAILY PO 02/22/25 10:00 03/10/25 09:29 81 MG Levothyroxine Sodium 50 mcg QAM@0600 PO 02/22/25 06:00 03/10/25 05:04 50 MCG Sodium Chloride 10 ml Q8HR IV 02/22/25 06:00 03/10/25 13:42 10 ML Midazolam HCl 50 ml @ 1 mls/hr Q24H IV 02/25/25 21:30 03/07/25 03:49 7 MLS/HR Fentanyl Citrate 250 ml @ 2.5 mls/hr Q24H IV 02/25/25 21:30 03/09/25 23:44 12.5 MLS/HR Ipratropium [place] 0.5 mg Q4HR NEB 02/26/25 14:00 03/10/25 10:36 0.5 MG Heparin Sodium (Porcine) 5,000 units Q12HR SC 02/27/25 22:00 03/09/25 21:39 5,000 UNITS Diagnostic Test (Pha) 1 strip Q6HR 02/27/25 12:00 03/10/25 11:27 1 STRIP Insulin Human Regular Q6HR SC 02/27/25 12:00 03/05/25 18:48 2 UNITS Dextrose 50 ml UD PRN IV 02/27/25 11:45 Enteral Nutritional Formula 1,000 ml 30ML/HR GT 03/03/25 09:30 03/03/25 14:56 1,000 ML Sennosides 8.6 mg HS PO 03/03/25 22:00 03/08/25 21:31 8.6 MG Polyethylene Glycol 17 gm DAILY PO 03/03/25 18:40 03/07/25 10:04 17 GM Clonidine HCl 0.2 mg Q8HR PO 03/04/25 14:00 03/10/25 13:45 0.2 MG Propofol 100 ml @ 2.679 mls/ hr Q24H IV 03/04/25 21:45 03/10/25 09:34 5.358 MLS/HR Prazosin HCl 1 mg Q12HR PO 03/05/25 22:00 03/10/25 09:30 1 MG Famotidine 10 mg EOD IV 03/08/25 10:00 03/10/25 09:31 10 MG Doxycycline Hyclate 100 ml @ 50 mls/hr Q12H IV 03/07/25 00:00 03/10/25 11:21 50 MLS/HR Carvedilol 12.5 mg Q12HR PO 03/06/25 22:00 03/10/25 09:29 12.5 MG Bumetanide 2 mg Q8HR IV 03/06/25 22:00 03/10/25 13:39 2 MG Amlodipine Besylate 10 mg DAILY PO 03/08/25 10:00 03/10/25 09:30 10 MG Nicardipine HCl 50 mg/Sodium Chloride 250 ml @ 25 mls/hr Q10H IV 03/07/25 15:00 03/09/25 10:35 50 MLS/HR Minoxidil 2.5 mg DAILY PO 03/10/25 10:00 03/10/25 09:32 2.5 MG objective HEENT: ET tube in place Pulmonary: Lungs diminished on auscultation bilaterally Cardiovascular S1-S2, no S3 or S4 Abdomen: Bowel sounds positive, soft no rebound tenderness Skin: No rash Neurological: Sedated laboratory and microbiology Laboratory Tests 03/10/25 03:09 Test 03/10/25 03:09 Range/Units Serum Glucose 91 74-106 mg/dL Assessment/Plan Assessment Severe CHANDRA secondary to hypertensive crisis and end organ damage CKD stage 4 is his baseline, likely progression to Chronic kidney disease five HTN emergency, patient has historically refused oral anti hypertensives due to multiple "allergies" and side effects Endorsed poor tolerance to multiple antihypertensive meds Multiple cardiology and nephrology evaluations at [facility], [facility], etc have not helped him because he "cannot take any anti hypertensives orally" He was offered nephrectomy and HD at [facility] recently but declined He was sent for renal denervation and or osmar-receptor stimulation therapy but he could not get access to this Acute hypoxic respiratory failure on supplemental oxygen Pneumonia Bacteremia gram positive cocci elevated troponin, r/o NSTEMI h/o carotid artery stenosis s/p stent h/o TIA Hypothyroidism PTSD Assessment/Plan Hemodialysis was completed Sunday and Sunday, well tolerated Continue HD Sunday Tolerating Minoxidil on low-dose amlodipine, carvedilol. Off nicardipine drip Consider resuming clonidine patch 0.3 mg weekly if needed On prazosin Continue with Bumex No evidence of renal recovery. IR has been consulted for tunneled dialysis line Plan of care from Nephrology standpoint discussed with the at bedside in addition to the hospitalist today Dietary Evaluation Review Comments: 1) Initiate Nephro-Tayla @ 1 tb qd 2) If patient remains NPO > 7 days, consider EN/TPN to meet at least 75% of estimated daily needs 3) If GI route is preferred, consider Nepro CarbSteady @ 40 mL/hr goal rate as tolerated. EN regimen will provide 2222 kcals (including Propofol), 78g Pro, and 715 mL free H2O per 24 hrs. Goal rate will meet ~ 98% estimated daily energy needs and ~ 72% estimated daily protein needs 4) Advance to renal cardiac diet when medically feasible, pending ST approval 5) Follow-up with cardiology, pulmonology, and nephrology 6) Continue to monitor I&O, labs, and skin integrity Expected Outcomes/Goals: 1) patient to receive nutrition support within 7 days of NPO status 2) GI symptoms and labs to improve 3) diet to advance 4) f/u in 2-3 days Plan discussed with: Patient BETI ALEXANDER MD Mar 10, 2025 16:43
--- NOTE | 2025-03-10 22:59 | DVHPN2 ---
Progress Note - Dictate Date Seen: Mar 10, 2025 Has the PT tested + for MRSA If YES, has PT been informed?: No Medical Necessity Reason Pt with a Central, PICC or Fol: Yes The following are medically ne: Noriega Catheter Reason for noriega catheter: Strict I&O Subjective Patient seen and examined at bedside. intubated on mechanical ventilator. Overnight events reviewed. vital signs Vital Sign Date Time Temp Pulse Resp B/P (MAP) Pulse Ox O2 Delivery O2 Flow Rate FiO2 03/10/25 22:12 107 26 137/89 (105) 98 30 03/10/25 22:00 Mechanical Ventilator+ 03/10/25 18:15 98.4 209.1 Total Intake and Output 03/09/25 03/09/25 03/10/25 15:00 23:00 07:00 Intake Total 504.006 ml 672.864 ml 558.756 ml Output Total 15 ml 10 ml Balance 504.006 ml 657.864 ml 548.756 ml medications Current Medications Medications Dose Ordered Sig/Shayan Route Start Time Stop Time Status Last Admin Dose Admin Aspirin 81 mg DAILY PO 02/22/25 10:00 03/10/25 09:29 81 MG Levothyroxine Sodium 50 mcg QAM@0600 PO 02/22/25 06:00 03/10/25 05:04 50 MCG Sodium Chloride 10 ml Q8HR IV 02/22/25 06:00 03/10/25 21:20 10 ML Midazolam HCl 50 ml @ 1 mls/hr Q24H IV 02/25/25 21:30 03/07/25 03:49 7 MLS/HR Fentanyl Citrate 250 ml @ 2.5 mls/hr Q24H IV 02/25/25 21:30 03/09/25 23:44 12.5 MLS/HR Ipratropium Eagle 0.5 mg Q4HR NEB 02/26/25 14:00 03/10/25 22:12 0.5 MG Heparin Sodium (Porcine) 5,000 units Q12HR SC 02/27/25 22:00 03/10/25 21:22 5,000 UNITS Diagnostic Test (Pha) 1 strip Q6HR 02/27/25 12:00 03/10/25 17:55 1 STRIP Insulin Human Regular Q6HR SC 02/27/25 12:00 03/05/25 18:48 2 UNITS Dextrose 50 ml UD PRN IV 02/27/25 11:45 Enteral Nutritional Formula 1,000 ml 30ML/HR GT 03/03/25 09:30 03/03/25 14:56 1,000 ML Sennosides 8.6 mg HS PO 03/03/25 22:00 03/08/25 21:31 8.6 MG Polyethylene Glycol 17 gm DAILY PO 03/03/25 18:40 03/07/25 10:04 17 GM Clonidine HCl 0.2 mg Q8HR PO 03/04/25 14:00 03/10/25 21:21 0.2 MG Propofol 100 ml @ 2.679 mls/ hr Q24H IV 03/04/25 21:45 03/10/25 09:34 5.358 MLS/HR Prazosin HCl 1 mg Q12HR PO 03/05/25 22:00 03/10/25 21:22 1 MG Famotidine 10 mg EOD IV 03/08/25 10:00 03/10/25 09:31 10 MG Doxycycline Hyclate 100 ml @ 50 mls/hr Q12H IV 03/07/25 00:00 03/10/25 11:21 50 MLS/HR Carvedilol 12.5 mg Q12HR PO 03/06/25 22:00 03/10/25 21:21 12.5 MG Bumetanide 2 mg Q8HR IV 03/06/25 22:00 03/10/25 21:20 2 MG Amlodipine Besylate 10 mg DAILY PO 03/08/25 10:00 03/10/25 09:30 10 MG Nicardipine HCl 50 mg/Sodium Chloride 250 ml @ 25 mls/hr Q10H IV 03/07/25 15:00 03/09/25 10:35 50 MLS/HR Minoxidil 2.5 mg DAILY PO 03/10/25 10:00 03/10/25 09:32 2.5 MG objective Gen.: Patient lying in bed in medical ICU; intubated on mechanical ventilator. Head: Normocephalic, atraumatic. Eyes: PERRLA. Ears: Normal external anatomy. Throat: Endotracheal tube and orogastric tube in place. Neck: Supple, trachea midline. Chest: Transmitted breath sounds bilaterally. Decreased air entry bilaterally. No wheezing. Bibasilar crackles. Cardiovascular: Positive S1, positive S2. Regular rate and rhythm. Abdomen: Positive bowel sounds in all 4 quadrants. Soft, nontender, nondistended. : Noriega in place. Normal external genitalia. Rectal: Deferred. Skin: Warm, dry. Intact. Extremities: 2+ radial pulses bilaterally. No lower extremity edema. Neuro: Off sedation laboratory and microbiology Laboratory Tests 03/10/25 03:09 Test 03/10/25 03:09 Range/Units Serum Glucose 91 74-106 mg/dL Assessment/Plan Impression: Acute hypoxemic respiratory failure On mechanical ventilator Fluid overload Pneumonia Atelectasis Pulmonary edema Anemia ESRD, on hemodialysis Events: Remains on vent support AC mode; RR 22, tidal volume 500, PEEP 5, FiO2 30% Off sedation Fentanyl drip for analgesia Patient tolerated CPAP for 1 hour He was placed back on full support Continue tube feeds for nutritional support Blood pressure control On PO antihypertensives Continue antibiotics Monitor WBC - 11.3 K Blood cultures show no growth after 5 days Sputum culture positive for MRSA. Continue bronchodilators Monitor hemoglobin - trended down to 8.2 g/dL BP control per Nephrology Hemodialysis per Nephrology Diurese with Bumex IV. Monitor renal function Monitor electrolytes. Supplement as needed Monitor UOP. Monitor ins and outs. Follow up EEG results CT head reveals no ICH or stroke. Follow up Neurology recommendations SBT/RIVKA. Taper sedation as tolerated Precedex drip OK for agitation. CPAP trial with PS 8, PEEP of 5 Bronchoscopy was performed 02/26/25 for pulmonary toileting -see separate note for procedure in detail Labs and imaging reviewed Plan: On mechanical ventilation S/p intubation Titrate FIO2 to keep O2 saturation above 90%. Off sedation Antibiotics Follow up cultures Bronchodilators Monitor hemoglobin Transfuse if less than 7.0 g/dL. Accu-Cheks, ISS prn. Monitor renal function F/u nephrology Management deferred HD per Nephrology Monitor electrolytes. Supplement as needed Maintain euvolemia Pressors as needed for hemodynamic support To maintain a mean arterial pressure of 65 mmHg DVT prophylaxis Prognosis: Poor given patient's multiple co-morbidities. Condition: Critical Rest of plan per hospitalist and other consultants. A total of 35 minutes of critical care time was spent reviewing the patient record, examining the patient, making a diagnostic and therapeutic plan, discussing this plan with the medical personnel, following up on diagnostic studies and following the patient for clinical stability excluding any and all procedures. At least 50% of this time was spent in direct, [id number] contact. Thank you, Dr. Bass, for allowing me to participate in this patient's care. Further recommendations will depend on the patient's clinical course. Please do not hesitate to contact me if you have any questions or concerns. This medical document was created using an electronic medical record system with [employer] dictation system. Although these documentations are being carefully reviewed, there may still be some phonetic and typographical changes. The errors are purely typographical, due to imperfection on the software program, and do not reflect any compromise in the patient's medical care. Dietary Evaluation Review Comments: 1) Initiate Nephro-Tayla @ 1 tb qd 2) If patient remains NPO > 7 days, consider EN/TPN to meet at least 75% of estimated daily needs 3) If GI route is preferred, consider Nepro CarbSteady @ 40 mL/hr goal rate as tolerated. EN regimen will provide 2222 kcals (including Propofol), 78g Pro, and 715 mL free H2O per 24 hrs. Goal rate will meet ~ 98% estimated daily energy needs and ~ 72% estimated daily protein needs 4) Advance to renal cardiac diet when medically feasible, pending ST approval 5) Follow-up with cardiology, pulmonology, and nephrology 6) Continue to monitor I&O, labs, and skin integrity Expected Outcomes/Goals: 1) patient to receive nutrition support within 7 days of NPO status 2) GI symptoms and labs to improve 3) diet to advance 4) f/u in 2-3 days Plan discussed with: Other (HEIDY Monahan) Critical Care Time(min): 35 BÁRBARA FISH MD Mar 10, 2025 22:59
[2025-03-11] VITALS (105 sets, daily range): BP systolic 96–187; BP diastolic 56–117; PULSE 94–118; RESP 7–28; TEMP 96.3–99.3; O2SAT 9–100
[2025-03-11 05:22] LABS: Potassium 4.2 mmol/L (3.5-5.1)
[2025-03-11 05:23] LABS: Anion Gap 17 (5-15); Carbon Dioxide 22 mmol/L (20-31)
[2025-03-11 05:28] LABS: BUN/Creatinine Ratio 12.8 (10.0-20.0); Glucose 99 mg/dL (74-106)
[2025-03-11 05:40] LABS: Calcium 8.6 mg/dL (8.7-10.4); Chloride 96 mmol/L (98-107); Sodium 135 mmol/L (136-145)
[2025-03-11 05:41] LABS: Blood Urea Nitrogen 103 mg/dL (9-23)
[2025-03-11 05:52] LABS: Hematocrit 26.2 % (41.0-53.0); Hemoglobin 9.2 g/dL (13.5-17.5); Mean Corpuscular Hemoglobin 31.6 pg (28.0-32.0); Mean Corpuscular Volume 90.3 fL (80.0-100.0); Nucleated Red Blood Cells % 0.2 %
[2025-03-11] MEDS: SODIUM CHL 0.9% 1000 ML BAG XX ONE (07:00)
[2025-03-11 07:44] LABS: Base Excess -1.2 mmol/L (-2.0-3.0)
--- NOTE | 2025-03-11 10:05 | DVHPN2 ---
Assessment/Plan Assessment/Plan ICU note 54 M with resistant HTN (with noted allergies but reported making him feel "very sick", no anaphylaxis hx), CKD4, carotid artery stenosis s/p stenting, TIAs, thyroid disease. intubated for acute hypoxic RF 2/2 pulm edema. currently on HD. clean coronaries in 2022. prior plan for BAT and renal denervations. seen today. off nicardipine, apneic on cpap. hd today, will see if mental status improved after HD. uptitrate bp meds as necessary physical exam intubated, sedated on mech vent PERLLA moving to pain s1 s2 rrr mechanical breath sounds abdomen soft trace le edema labs ekg imaging reviewed assessment and plan acute hypoxic RF req mech vent aspiration PNA gp vs gn CHANDRA ATN on CKD on HD HTN emergency pulmonary edema type 2 PA demand ischemia and decreased renal clearance GPC bacteremia c/w mech vent daily SAT SBT maintain sbp <150, c/w nicardipine HD per renal, bumex per renal c/w vanc Zosyn start nepro start oral anti htn (will have to use alternatives for allergies?) now on prazosin, clonidine, coreg and minoxidil dc hydrocortisone diet nepro dvt ppx heprain gi ppx pepcid condition critical prognosis poor critical care time 35 minutes Plan discussed with: Other My Orders Orders - DION ROSA MD Procedure Category Date Status Time Abg W/ Co-Ox RT 03/11/25 Logged 05:20 Cpap Trial For Am ORDERS 03/11/25 Transmitted 05:22 Date of Service: Mar 11, 2025 Billing Provider: DION ROSA MD Common Visit Codes: [id number] CARE 30-74 MIN DION ROSA MD Mar 11, 2025 10:05
--- NOTE | 2025-03-11 11:05 | DVHPN2 ---
Progress Note - Dictate Date Seen: Mar 11, 2025 Has the PT tested + for MRSA If YES, has PT been informed?: No Medical Necessity Reason Pt with a Central, PICC or Fol: Yes The following are medically ne: Noriega Catheter Reason for noriega catheter: Strict I&O Subjective Mr. Mercado is a 54 years old right-handed gentleman with a history of hypertension, hypothyroidism, chronic kidney failure, systemic inflammatory response syndrome, TIA, stroke with left-sided residual weakness, seizure, brain aneurysm, PTSD, a long list of drug allergy, he came to the [facility] on 02/21/2025 with a chief complaint of chest pain, but his hospital stay was complicated with elevated troponin I/heart attack, respiratory failure and he was intubated in the evening on 02/25/2025, with appropriate treatment, the patient is stabilized and improving, but is not waking up as expected. I saw him in 07/2013 for headache, 08/05/15 for intractable headache, possible TIA, 12/17/2017 for stroke I have seen and examined the patient, talked to his nurse and , he open his eyes to light touch, but is nonresponsive to verbal stimuli Earlier this morning with less sedation, he was responsive to verbal stimuli but did not follow He is going through hemodialysis He is to have tunnel cath insertion today Fentanyl 25 mcg/hour, propofol 15 mcg/minute, Precedex 0.4 mcg/kg/hr Urinalysis, 02/26/2025: WBC: 4, urine leukocyte esterase: Negative ABG, 02/25/2025: Metabolic acidosis, 02/26/2025: Hypoxia, metabolic acidosis CBC, 02/21/2025, 10.7/13.1/154/83.9, 03/08/2025: 9.6/8.7/260/87.4 BUN/CR, 03/08/2025: 52/5.15 GFR, 03/08/2020 5:13 a.m. Troponin one high sensitivity, 02/22/2025: 541, 1173, 2396, 4495, 5273 TBI/AST/ALT/AP, 03/08/2025: 0.3/637/200/211 TG/HDL/LDL/HDL, 02/22/2025: 249/177/96/30 Chest x-ray, 02/25/2025: 1. Endotracheal tube in place 6.4 cm above the ivan 2. Enteric tube below the diaphragm in the stomach. 3. Cardiopulmonary findings most likely secondary to congestive failure Chest x-ray, 03/08/2025: No significant change from the previous study. Stable support devices. Unchanged endotracheal tube, enteric tube, and right IJ catheter. CT head, 02/21/2025: 1. No acute intracranial abnormality. 2. Old lacunar infarct external capsule right basal ganglia CT head, 12/18/2017: Normal noncontrast MRA of the head CT head, 03/08/2025: No acute intracranial abnormality vital signs Vital Sign Date Time Temp Pulse Resp B/P (MAP) Pulse Ox O2 Delivery O2 Flow Rate FiO2 03/11/25 10:15 98.6 106 22 147/98 (114) 98 209.5 03/11/25 10:00 30 03/11/25 10:00 Mechanical Ventilator+ Total Intake and Output 03/10/25 03/10/25 03/11/25 15:00 23:00 07:00 Intake Total 158.753 ml 64 ml 386.20 ml Output Total 40 ml 30 ml Balance 158.753 ml 24 ml 356.20 ml medications Current Medications Medications Dose Ordered Sig/Shayan Route Start Time Stop Time Status Last Admin Dose Admin Aspirin 81 mg DAILY PO 02/22/25 10:00 03/10/25 09:29 81 MG Levothyroxine Sodium 50 mcg QAM@0600 PO 02/22/25 06:00 03/11/25 05:46 50 MCG Sodium Chloride 10 ml Q8HR IV 02/22/25 06:00 03/11/25 06:00 10 ML Midazolam HCl 50 ml @ 1 mls/hr Q24H IV 02/25/25 21:30 03/07/25 03:49 7 MLS/HR Fentanyl Citrate 250 ml @ 2.5 mls/hr Q24H IV 02/25/25 21:30 03/09/25 23:44 12.5 MLS/HR Ipratropium [place] 0.5 mg Q4HR NEB 02/26/25 14:00 03/11/25 10:39 0.5 MG Heparin Sodium (Porcine) 5,000 units Q12HR SC 02/27/25 22:00 03/10/25 21:22 5,000 UNITS Diagnostic Test (Pha) 1 strip Q6HR 02/27/25 12:00 03/11/25 05:46 1 STRIP Insulin Human Regular Q6HR SC 02/27/25 12:00 03/05/25 18:48 2 UNITS Dextrose 50 ml UD PRN IV 02/27/25 11:45 Enteral Nutritional Formula 1,000 ml 30ML/HR GT 03/03/25 09:30 03/03/25 14:56 1,000 ML Sennosides 8.6 mg HS PO 03/03/25 22:00 03/08/25 21:31 8.6 MG Polyethylene Glycol 17 gm DAILY PO 03/03/25 18:40 03/07/25 10:04 17 GM Clonidine HCl 0.2 mg Q8HR PO 03/04/25 14:00 03/11/25 05:46 0.2 MG Propofol 100 ml @ 2.679 mls/ hr Q24H IV 03/04/25 21:45 03/10/25 09:34 5.358 MLS/HR Prazosin HCl 1 mg Q12HR PO 03/05/25 22:00 03/10/25 21:22 1 MG Famotidine 10 mg EOD IV 03/08/25 10:00 03/10/25 09:31 10 MG Doxycycline Hyclate 100 ml @ 50 mls/hr Q12H IV 03/07/25 00:00 03/11/25 00:05 50 MLS/HR Carvedilol 12.5 mg Q12HR PO 03/06/25 22:00 03/10/25 21:21 12.5 MG Bumetanide 2 mg Q8HR IV 03/06/25 22:00 03/11/25 05:45 2 MG Amlodipine Besylate 10 mg DAILY PO 03/08/25 10:00 03/10/25 09:30 10 MG Nicardipine HCl 50 mg/Sodium Chloride 250 ml @ 25 mls/hr Q10H IV 03/07/25 15:00 03/09/25 10:35 50 MLS/HR Minoxidil 2.5 mg DAILY PO 03/10/25 10:00 03/10/25 09:32 2.5 MG objective General: the patient is well developed and nourished. No acute distress. Intubated MENTAL STATUS: Subjective SPEECH, LANGUAGE, HIGHER CORTICAL FUNCTION: Intubated CRANIAL NERVES: Pupils are equal, round and reactive. There is conjugated rolling eye movement. Facial sensation intact in all three divisions bilaterally. Mandibular strength intact. Facial muscles symmetrical and strength intact. SENSATION: Okay to painful stimuli MOTOR: Normal tone in the upper and lower extremity. Normal muscle bulk. No fasciculations. No abnormal movements or posturing. He moves the arms and legs a little bit REFLEXES: Deep tendon reflexes normal and symmetrical. No pathological reflexes. CEREBELLAR/COORDINATION: Deferred GAIT: Deferred laboratory and microbiology Laboratory Tests 03/11/25 02:34 Test 03/11/25 02:34 Range/Units Serum Glucose 99 74-106 mg/dL Problem List Altered mental status Metabolic encephalopathy Hypoxic encephalopathy Toxic encephalopathy Acute respiratory failure, status post intubation Elevated troponin one/heart attack Acute kidney failure on hemodialysis Elevated stiff function tests Multiple strokes/TIA with residual left-sided weakness Polyneuropathy Assessment/Plan Monitoring Supportive treatment EEG ICU care Stabilize vitals Respiratory support/vent management Oxygen IV antibiotics Aspirin 81 mg daily GI prophylaxis/famotidine DVT prophylaxis Oxygen Antibiotics Nephrology on case/Hemodialysis Cardiology on case Pulmonology on case More recommendation per clinical course This medical document was created using an electronic medical record system with [employer] dictation system. Although this document has been carefully reviewed, there may still be some phonetic and typographical errors. These areas are purely typographical due to imperfections of the software programs, and do not reflect any compromise in the patient's medical care. Prognosis guarded Dietary Evaluation Review Comments: 1) Initiate Nephro-Tayla @ 1 tb qd 2) If patient remains NPO > 7 days, consider EN/TPN to meet at least 75% of estimated daily needs 3) If GI route is preferred, consider Nepro CarbSteady @ 40 mL/hr goal rate as tolerated. EN regimen will provide 2222 kcals (including Propofol), 78g Pro, and 715 mL free H2O per 24 hrs. Goal rate will meet ~ 98% estimated daily energy needs and ~ 72% estimated daily protein needs 4) Advance to renal cardiac diet when medically feasible, pending ST approval 5) Follow-up with cardiology, pulmonology, and nephrology 6) Continue to monitor I&O, labs, and skin integrity Expected Outcomes/Goals: 1) patient to receive nutrition support within 7 days of NPO status 2) GI symptoms and labs to improve 3) diet to advance 4) f/u in 2-3 days Plan discussed with: Spouse, Other Critical Care Time(min): 35 ERASMO CHO MD Mar 11, 2025 11:05
[2025-03-11] MEDS ORDERED: VANCOMYCIN PER PHARMACY 0 MG IV SCH (12:00)
[2025-03-11] MEDS: HEPARIN SODIUM (PORCINE) 5000 UNITS/ML 1ML VIAL ONE (12:40)
[2025-03-11] MEDS: LIDOCAINE 2%HCL (LOCAL ANESTH.) INJ 20ML MDV ONE (12:41)
--- NOTE | 2025-03-11 14:00 | DVH ---
XY Insertion of Venous Cath, HISTORY: HD CATH PROCEDURE: Informed consent was obtained. The patient was placed supine on the interventional table. A limited localization ultrasound of the right neck base was obtained. The right neck base and upper chest were prepped with chlorhexidine which was allowed to dry and draped in the usual sterile fashio n. Time out was performed. IV sedation was administered. The skin and the soft tissues were infiltrat ed with 1% Lidocaine . With real-time ultrasound guidance, the internal jugular vein was accessed wi th a micropuncture kit, and an image documenting patency was recorded to PACS. A subcutaneous tunnele d tract was created from the right upper chest to the venotomy site. A 14.5 [place] [address], 19 cm long hemodialysis catheter was advanced through the tunneled tract. Fluoroscopy was used to advance a guidewire through the internal jugular vein into the inferior vena cava. Following serial dilatation, a 15 Somali peel-away sheath was introduced, though which was adva nced the catheter into the right atrium. The catheter tip position was confirmed with fluoroscopy. Th ere was satisfactory flow in both lumens. The catheter lumens were flushed with saline and heparin wa s left indwelling in the catheter. A post-procedure image of the chest was obtained. The neck incisio n site was closed with a Dermabond and dressed sterilely. The catheter was sutured at the skin surfac e and exit site also dressed sterilely. No immediate complication was identified. DAP 272.5 FLUOROSCOPY TIME: 4.4 minutes. SEDATION: Dr. Frank Cesar was personally responsible for the administration of moderate sedation during the procedure performed, including the use of an independent trained observer who had no other duties during the procedure. The drugs utilized were IV fentanyl and propofol (see nursing log for details) . The total time of supervision by the attending physician was approximately 30 minutes. FINDINGS: Widely patent right IJV. Post procedure image demonstrates smooth course of the hemodialys is catheter with the tip in the right atrium. IMPRESSION: Placement of 14.5 [place] [address], 19 cm long hemodialysis catheter through right internal jugular vein. Plan: Please contact IR for removal when no longer needed.
[2025-03-11] MEDS: VANCOMYCIN 500mg/100mL 100 ML IV ONE (14:34)
--- NOTE | 2025-03-11 16:53 | DVHPN2 ---
Progress Note - Dictate Date Seen: Mar 11, 2025 Has the PT tested + for MRSA If YES, has PT been informed?: No Medical Necessity Reason Pt with a Central, PICC or Fol: Yes The following are medically ne: Noriega Catheter Reason for noriega catheter: Strict I&O Subjective Patient on CPAP trials blinking, not following Noriega commands. is at bedside. vital signs Vital Sign Date Time Temp Pulse Resp B/P (MAP) Pulse Ox O2 Delivery O2 Flow Rate FiO2 03/11/25 16:28 102 12 138/88 (105) 98 30 03/11/25 15:30 98.1 208.6 03/11/25 14:00 Mechanical Ventilator+ Total Intake and Output 03/10/25 03/10/25 03/11/25 15:00 23:00 07:00 Intake Total 158.753 ml 64 ml 386.20 ml Output Total 40 ml 30 ml Balance 158.753 ml 24 ml 356.20 ml medications Current Medications Medications Dose Ordered Sig/Shayan Route Start Time Stop Time Status Last Admin Dose Admin Aspirin 81 mg DAILY PO 02/22/25 10:00 03/11/25 12:11 81 MG Levothyroxine Sodium 50 mcg QAM@0600 PO 02/22/25 06:00 03/11/25 05:46 50 MCG Sodium Chloride 10 ml Q8HR IV 02/22/25 06:00 03/11/25 14:39 10 ML Midazolam HCl 50 ml @ 1 mls/hr Q24H IV 02/25/25 21:30 03/07/25 03:49 7 MLS/HR Fentanyl Citrate 250 ml @ 2.5 mls/hr Q24H IV 02/25/25 21:30 03/09/25 23:44 12.5 MLS/HR Ipratropium Bern 0.5 mg Q4HR NEB 02/26/25 14:00 03/11/25 14:15 0.5 MG Heparin Sodium (Porcine) 5,000 units Q12HR SC 02/27/25 22:00 03/10/25 21:22 5,000 UNITS Diagnostic Test (Pha) 1 strip Q6HR 02/27/25 12:00 03/11/25 12:13 1 STRIP Insulin Human Regular Q6HR SC 02/27/25 12:00 03/05/25 18:48 2 UNITS Dextrose 50 ml UD PRN IV 02/27/25 11:45 Enteral Nutritional Formula 1,000 ml 30ML/HR GT 03/03/25 09:30 03/03/25 14:56 1,000 ML Sennosides 8.6 mg HS PO 03/03/25 22:00 03/08/25 21:31 8.6 MG Polyethylene Glycol 17 gm DAILY PO 03/03/25 18:40 03/07/25 10:04 17 GM Clonidine HCl 0.2 mg Q8HR PO 03/04/25 14:00 03/11/25 05:46 0.2 MG Propofol 100 ml @ 2.679 mls/ hr Q24H IV 03/04/25 21:45 03/10/25 09:34 5.358 MLS/HR Prazosin HCl 1 mg Q12HR PO 03/05/25 22:00 03/11/25 12:10 1 MG Famotidine 10 mg EOD IV 03/08/25 10:00 03/10/25 09:31 10 MG Doxycycline Hyclate 100 ml @ 50 mls/hr Q12H IV 03/07/25 00:00 03/11/25 12:12 50 MLS/HR Carvedilol 12.5 mg Q12HR PO 03/06/25 22:00 03/11/25 12:11 12.5 MG Bumetanide 2 mg Q8HR IV 03/06/25 22:00 03/11/25 05:45 2 MG Amlodipine Besylate 10 mg DAILY PO 03/08/25 10:00 03/11/25 12:12 10 MG Nicardipine HCl 50 mg/Sodium Chloride 250 ml @ 25 mls/hr Q10H IV 03/07/25 15:00 03/09/25 10:35 50 MLS/HR Minoxidil 2.5 mg DAILY PO 03/10/25 10:00 03/11/25 12:09 2.5 MG Vancomycin HCl 0 ml @ 0 mls/hr UD IV 03/11/25 12:00 objective HEENT: ET tube in place Pulmonary: Lungs diminished on auscultation bilaterally Cardiovascular S1-S2, no S3 or S4 Abdomen: Bowel sounds positive, soft no rebound tenderness Skin: No rash Neurological: Sedated laboratory and microbiology Laboratory Tests 03/11/25 02:34 Test 03/11/25 02:34 Range/Units Serum Glucose 99 74-106 mg/dL Assessment/Plan Assessment Severe CHANDRA secondary to hypertensive crisis and end organ damage CKD stage 4 is his baseline, likely progression to Chronic kidney disease five HTN emergency, patient has historically refused oral anti hypertensives due to multiple "allergies" and side effects Endorsed poor tolerance to multiple antihypertensive meds Multiple cardiology and nephrology evaluations at [facility], [facility], etc have not helped him because he "cannot take any anti hypertensives orally" He was offered nephrectomy and HD at [facility] recently but declined He was sent for renal denervation and or osmar-receptor stimulation therapy but he could not get access to this Acute hypoxic respiratory failure on supplemental oxygen Pneumonia Bacteremia gram positive cocci elevated troponin, r/o NSTEMI h/o carotid artery stenosis s/p stent h/o TIA Hypothyroidism PTSD Assessment/Plan Hemodialysis Sunday integration project manager to arrange chair time Tunneled line was placed today Patient tolerating well current antihypertensive regimen has been off nicardipine drip for days, with no adverse reaction or allergic reaction Tolerating Minoxidil on low-dose amlodipine, carvedilol Consider resuming clonidine patch 0.3 mg weekly if needed On prazosin Continue with Bumex No evidence of renal recovery. . Discussed with who verbalized understanding and agreed Plan of care from Nephrology standpoint discussed with the at bedside in addition to the hospitalist today Dietary Evaluation Review Comments: 1) Initiate Nephro-Tayla @ 1 tb qd 2) If patient remains NPO > 7 days, consider EN/TPN to meet at least 75% of estimated daily needs 3) If GI route is preferred, consider Nepro CarbSteady @ 40 mL/hr goal rate as tolerated. EN regimen will provide 2222 kcals (including Propofol), 78g Pro, and 715 mL free H2O per 24 hrs. Goal rate will meet ~ 98% estimated daily energy needs and ~ 72% estimated daily protein needs 4) Advance to renal cardiac diet when medically feasible, pending ST approval 5) Follow-up with cardiology, pulmonology, and nephrology 6) Continue to monitor I&O, labs, and skin integrity Expected Outcomes/Goals: 1) patient to receive nutrition support within 7 days of NPO status 2) GI symptoms and labs to improve 3) diet to advance 4) f/u in 2-3 days Plan discussed with: Patient BETI ALEXANDER MD Mar 11, 2025 16:53
[2025-03-11] MEDS: EPOETIN ALFA-EPBX 4,000 UNIT/ML VIAL SC ONE (22:29)
--- NOTE | 2025-03-11 23:16 | DVHPN2 ---
Progress Note - Dictate Date Seen: Mar 11, 2025 Has the PT tested + for MRSA If YES, has PT been informed?: No Medical Necessity Reason Pt with a Central, PICC or Fol: Yes The following are medically ne: Noriega Catheter Reason for noriega catheter: Strict I&O Subjective Patient seen and examined at bedside. intubated on mechanical ventilator. Overnight events reviewed. vital signs Vital Sign Date Time Temp Pulse Resp B/P (MAP) Pulse Ox O2 Delivery O2 Flow Rate FiO2 03/11/25 22:12 144/78 03/11/25 22:11 110 03/11/25 22:05 25 99 30 03/11/25 20:45 99.3 210.7 03/11/25 18:00 Mechanical Ventilator+ Total Intake and Output 03/10/25 03/10/25 03/11/25 15:00 23:00 07:00 Intake Total 158.753 ml 64 ml 386.20 ml Output Total 40 ml 30 ml Balance 158.753 ml 24 ml 356.20 ml medications Current Medications Medications Dose Ordered Sig/Shayan Route Start Time Stop Time Status Last Admin Dose Admin Aspirin 81 mg DAILY PO 02/22/25 10:00 03/11/25 12:11 81 MG Levothyroxine Sodium 50 mcg QAM@0600 PO 02/22/25 06:00 03/11/25 05:46 50 MCG Sodium Chloride 10 ml Q8HR IV 02/22/25 06:00 03/11/25 22:08 10 ML Midazolam HCl 50 ml @ 1 mls/hr Q24H IV 02/25/25 21:30 03/07/25 03:49 7 MLS/HR Fentanyl Citrate 250 ml @ 2.5 mls/hr Q24H IV 02/25/25 21:30 03/09/25 23:44 12.5 MLS/HR Ipratropium [place] 0.5 mg Q4HR NEB 02/26/25 14:00 03/11/25 22:05 0.5 MG Heparin Sodium (Porcine) 5,000 units Q12HR SC 02/27/25 22:00 03/11/25 22:09 5,000 UNITS Diagnostic Test (Pha) 1 strip Q6HR 02/27/25 12:00 03/11/25 18:29 1 STRIP Insulin Human Regular Q6HR SC 02/27/25 12:00 03/05/25 18:48 2 UNITS Dextrose 50 ml UD PRN IV 02/27/25 11:45 Enteral Nutritional Formula 1,000 ml 30ML/HR GT 03/03/25 09:30 03/03/25 14:56 1,000 ML Sennosides 8.6 mg HS PO 03/03/25 22:00 03/08/25 21:31 8.6 MG Polyethylene Glycol 17 gm DAILY PO 03/03/25 18:40 03/07/25 10:04 17 GM Clonidine HCl 0.2 mg Q8HR PO 03/04/25 14:00 03/11/25 05:46 0.2 MG Prazosin HCl 1 mg Q12HR PO 03/05/25 22:00 03/11/25 22:12 1 MG Famotidine 10 mg EOD IV 03/08/25 10:00 03/10/25 09:31 10 MG Doxycycline Hyclate 100 ml @ 50 mls/hr Q12H IV 03/07/25 00:00 03/11/25 12:12 50 MLS/HR Carvedilol 12.5 mg Q12HR PO 03/06/25 22:00 03/11/25 22:11 12.5 MG Bumetanide 2 mg Q8HR IV 03/06/25 22:00 03/11/25 22:07 2 MG Amlodipine Besylate 10 mg DAILY PO 03/08/25 10:00 03/11/25 12:12 10 MG Nicardipine HCl 50 mg/Sodium Chloride 250 ml @ 25 mls/hr Q10H IV 03/07/25 15:00 03/09/25 10:35 50 MLS/HR Minoxidil 2.5 mg DAILY PO 03/10/25 10:00 03/11/25 12:09 2.5 MG Vancomycin HCl 0 ml @ 0 mls/hr UD IV 03/11/25 12:00 objective Gen.: Patient lying in bed in medical ICU; intubated on mechanical ventilator. Head: Normocephalic, atraumatic. Eyes: PERRLA. Ears: Normal external anatomy. Throat: Endotracheal tube and orogastric tube in place. Neck: Supple, trachea midline. Chest: Transmitted breath sounds bilaterally. Decreased air entry bilaterally. No wheezing. Bibasilar crackles. Cardiovascular: Positive S1, positive S2. Regular rate and rhythm. Abdomen: Positive bowel sounds in all 4 quadrants. Soft, nontender, nondistended. : Noriega in place. Normal external genitalia. Rectal: Deferred. Skin: Warm, dry. Intact. Extremities: 2+ radial pulses bilaterally. No lower extremity edema. Neuro: Off sedation laboratory and microbiology Laboratory Tests 03/11/25 02:34 Test 03/11/25 02:34 Range/Units Serum Glucose 99 74-106 mg/dL Assessment/Plan Impression: Acute hypoxemic respiratory failure On mechanical ventilator Fluid overload Pneumonia Atelectasis Pulmonary edema Anemia ESRD, on hemodialysis Events: Remains on vent support AC mode; RR 22, tidal volume 500, PEEP 5, FiO2 30% Remains off sedation On Precedex drip CPAP in the AM if patient is more awake, alert. CPAP with PS 8, PEEP of 5. OK to increase PS to max 20 cmH2O to achieve tidal volume 400-500 mL. Continue tube feeds for nutritional support Blood pressure control On PO antihypertensives Continue antibiotics Monitor WBC - trended up to 13.1 K Blood cultures show no growth after 5 days Sputum culture positive for MRSA. Continue bronchodilators Monitor hemoglobin - trended up to 9.2 g/dL BP control per Nephrology Hemodialysis per Nephrology Diurese with Bumex IV. Monitor renal function Monitor electrolytes. Supplement as needed Monitor UOP. Monitor ins and outs. Follow up EEG results CT head reveals no ICH or stroke. Follow up Neurology recommendations SBT/RIVKA. Taper sedation as tolerated Precedex drip OK for agitation. CPAP trial with PS 8, PEEP of 5 Bronchoscopy was performed 02/26/25 for pulmonary toileting -see separate note for procedure in detail Labs and imaging reviewed Plan: On mechanical ventilation S/p intubation Titrate FIO2 to keep O2 saturation above 90%. Off sedation Antibiotics Follow up cultures Bronchodilators Monitor hemoglobin Transfuse if less than 7.0 g/dL. Accu-Cheks, ISS prn. Monitor renal function F/u nephrology Management deferred HD per Nephrology Monitor electrolytes. Supplement as needed Maintain euvolemia Pressors as needed for hemodynamic support To maintain a mean arterial pressure of 65 mmHg SBT/RIVKA. DVT prophylaxis Prognosis: Poor given patient's multiple co-morbidities. Condition: Critical Rest of plan per hospitalist and other consultants. A total of 35 minutes of critical care time was spent reviewing the patient record, examining the patient, making a diagnostic and therapeutic plan, discussing this plan with the medical personnel, following up on diagnostic studies and following the patient for clinical stability excluding any and all procedures. At least 50% of this time was spent in direct, [id number] contact. Thank you, Dr. Bass, for allowing me to participate in this patient's care. Further recommendations will depend on the patient's clinical course. Please do not hesitate to contact me if you have any questions or concerns. This medical document was created using an electronic medical record system with [employer] dictation system. Although these documentations are being carefully reviewed, there may still be some phonetic and typographical changes. The errors are purely typographical, due to imperfection on the software program, and do not reflect any compromise in the patient's medical care. Dietary Evaluation Review Comments: 1) Initiate Nephro-Tayla @ 1 tb qd 2) If patient remains NPO > 7 days, consider EN/TPN to meet at least 75% of estimated daily needs 3) If GI route is preferred, consider Nepro CarbSteady @ 40 mL/hr goal rate as tolerated. EN regimen will provide 2222 kcals (including Propofol), 78g Pro, and 715 mL free H2O per 24 hrs. Goal rate will meet ~ 98% estimated daily energy needs and ~ 72% estimated daily protein needs 4) Advance to renal cardiac diet when medically feasible, pending ST approval 5) Follow-up with cardiology, pulmonology, and nephrology 6) Continue to monitor I&O, labs, and skin integrity Expected Outcomes/Goals: 1) patient to receive nutrition support within 7 days of NPO status 2) GI symptoms and labs to improve 3) diet to advance 4) f/u in 2-3 days Plan discussed with: Other (HEIDY Quiroga) Critical Care Time(min): 35 BÁRBARA FISH MD Mar 11, 2025 23:16
[2025-03-12] VITALS (104 sets, daily range): BP systolic 83–230; BP diastolic 45–149; PULSE 101–151; RESP 11–28; TEMP 97.3–100; O2SAT 94–100
[2025-03-12 03:07] LABS: Hematocrit 24.4 % (41.0-53.0); Hemoglobin 8.6 g/dL (13.5-17.5); Mean Corpuscular Hemoglobin 31.7 pg (28.0-32.0); Mean Corpuscular Volume 89.8 fL (80.0-100.0); Nucleated Red Blood Cells % 0.1 %
[2025-03-12 03:12] LABS: Potassium 4.0 mmol/L (3.5-5.1); Sodium 136 mmol/L (136-145)
[2025-03-12 03:13] LABS: Anion Gap 16 (5-15); Carbon Dioxide 24 mmol/L (20-31)
[2025-03-12 03:18] LABS: BUN/Creatinine Ratio 13.0 (10.0-20.0); Glucose 96 mg/dL (74-106)
[2025-03-12 03:19] LABS: Calcium 8.3 mg/dL (8.7-10.4); Chloride 96 mmol/L (98-107)
[2025-03-12 03:20] LABS: Blood Urea Nitrogen 96 mg/dL (9-23)
--- NOTE | 2025-03-12 05:36 | DVH ---
CHEST RADIOGRAPH Indication: PT INTUBATED Technique: Single frontal view of the chest was obtained Comparison: XY CHEST XRAY 1 VIEW on DOS: 03/08/25 FINDINGS: Lines and Tubes: The endotracheal tube terminates 6.1 cm above the ivan. The enteric tube courses b elow the left hemidiaphragm and the tip extends outside the field of view. Right central venous dayanara ter terminates in the superior vena cava. Lungs: Significantly improved aeration in the lungs. Pleura: No effusion. No pneumothorax. Cardiomediastinal contours: Unremarkable Bones: No acute osseous abnormality. IMPRESSION: 1. Interval placement of a right central venous catheter terminates in superior vena cava. Other line s and tubes are unchanged in position. 2. Significantly improved aeration in the lungs without residua.
[2025-03-12 09:16] LABS: Base Excess -0.8 mmol/L (-2.0-3.0)
--- NOTE | 2025-03-12 09:28 | MEDREC ---
[facility] Intervention Section I [facility] Intervention: Deescalate AB based on CS (PLEASE CONSIDER DE-ESCALATION BASED ON CULTURE RESULTS), Review courses of therapy (Limitted evidence of doxy efficacy in treating MRSA pneumonia. Please consider another agent such as linezolid if vancomycin is not an option due to worsening renal function) [facility] Mar 12, 2025 09:28
--- NOTE | 2025-03-12 10:24 | DVH ---
US BiLat Lower DVT HISTORY: Decreased pulse R Dorsalis Pedis COMPARISON: US RT UPPER DVT on DOS: 02/24/25, US RENAL ARTERY COMP on DOS: 02/22/25 TECHNIQUE: Duplex doppler evaluation of the deep venous system of the lower extremity from the common femoral veins, superficial femoral vein, great saphenous vein, deep femoral vein, popliteal vein, an d calf veins, including color doppler and spectral/pulsed waveform analysis, was performed. FINDINGS: Right: - Common femoral vein: Not seen. - Deep femoral vein: Not seen. - Femoral vein: Compressible - Popliteal vein: Compressible - Posterior tibial vein: Waveforms present - Other: Nothing Left: - Common femoral vein: Compressible - Deep femoral vein: Compressible - Femoral vein: Compressible - Popliteal vein: Compressible - Posterior tibial vein: Waveforms present - Other: Nothing IMPRESSION: No right or left lower extremity deep venous thrombosis of the visualized veins.
--- NOTE | 2025-03-12 10:54 | DVHPN2 ---
Progress Note - Dictate Date Seen: Mar 12, 2025 Has the PT tested + for MRSA If YES, has PT been informed?: No Medical Necessity Reason Pt with a Central, PICC or Fol: Yes The following are medically ne: Noriega Catheter Reason for noriega catheter: Strict I&O Subjective Mr. Mercado is a 54 years old right-handed gentleman with a history of hypertension, hypothyroidism, chronic kidney failure, systemic inflammatory response syndrome, TIA, stroke with left-sided residual weakness, seizure, brain aneurysm, PTSD, a long list of drug allergy, he came to the [facility] on 02/21/2025 with a chief complaint of chest pain, but his hospital stay was complicated with elevated troponin I/heart attack, respiratory failure and he was intubated in the evening on 02/25/2025, with appropriate treatment, the patient is stabilized and improving, but is not waking up as expected. I saw him in 07/2013 for headache, 08/05/15 for intractable headache, possible TIA, 12/17/2017 for stroke I have seen and examined the patient, talked to his nurse and staff, eyes are open, but is nonresponsive to my verbal stimuli RN: He wiggled his toes on verbal commands Urinalysis, 02/26/2025: WBC: 4, urine leukocyte esterase: Negative ABG, 02/25/2025: Metabolic acidosis, 02/26/2025: Hypoxia, metabolic acidosis CBC, 02/21/2025, 10.7/13.1/154/83.9, 03/08/2025: 9.6/8.7/260/87.4 BUN/CR, 03/08/2025: 52/5.15 GFR, 03/08/2020 5:13 a.m. Troponin one high sensitivity, 02/22/2025: 541, 1173, 2396, 4495, 5273 TBI/AST/ALT/AP, 03/08/2025: 0.3/637/200/211 TG/HDL/LDL/HDL, 02/22/2025: 249/177/96/30 Chest x-ray, 02/25/2025: 1. Endotracheal tube in place 6.4 cm above the ivan 2. Enteric tube below the diaphragm in the stomach. 3. Cardiopulmonary findings most likely secondary to congestive failure Chest x-ray, 03/08/2025: No significant change from the previous study. Stable support devices. Unchanged endotracheal tube, enteric tube, and right IJ catheter. CT head, 02/21/2025: 1. No acute intracranial abnormality. 2. Old lacunar infarct external capsule right basal ganglia CT head, 12/18/2017: Normal noncontrast MRA of the head CT head, 03/08/2025: No acute intracranial abnormality vital signs Vital Sign Date Time Temp Pulse Resp B/P (MAP) Pulse Ox O2 Delivery O2 Flow Rate FiO2 03/12/25 10:11 129 14 164/109 (127) 100 30 03/12/25 08:00 Mechanical Ventilator+ 03/12/25 05:30 99.1 210.4 Total Intake and Output 03/11/25 03/11/25 03/12/25 15:00 23:00 07:00 Intake Total 214.471 ml 287.13 ml 230.8 ml Output Total 50 ml 10 ml Balance 214.471 ml 237.13 ml 220.8 ml medications Current Medications Medications Dose Ordered Sig/Shayan Route Start Time Stop Time Status Last Admin Dose Admin Aspirin 81 mg DAILY PO 02/22/25 10:00 03/11/25 12:11 81 MG Levothyroxine Sodium 50 mcg QAM@0600 PO 02/22/25 06:00 03/12/25 05:20 50 MCG Sodium Chloride 10 ml Q8HR IV 02/22/25 06:00 03/12/25 05:21 10 ML Midazolam HCl 50 ml @ 1 mls/hr Q24H IV 02/25/25 21:30 03/07/25 03:49 7 MLS/HR Fentanyl Citrate 250 ml @ 2.5 mls/hr Q24H IV 02/25/25 21:30 03/09/25 23:44 12.5 MLS/HR Ipratropium [place] 0.5 mg Q4HR NEB 02/26/25 14:00 03/12/25 10:11 0.5 MG Heparin Sodium (Porcine) 5,000 units Q12HR SC 02/27/25 22:00 03/11/25 22:09 5,000 UNITS Diagnostic Test (Pha) 1 strip Q6HR 02/27/25 12:00 03/12/25 05:29 1 STRIP Insulin Human Regular Q6HR SC 02/27/25 12:00 03/05/25 18:48 2 UNITS Dextrose 50 ml UD PRN IV 02/27/25 11:45 Enteral Nutritional Formula 1,000 ml 30ML/HR GT 03/03/25 09:30 03/03/25 14:56 1,000 ML Sennosides 8.6 mg HS PO 03/03/25 22:00 03/08/25 21:31 8.6 MG Polyethylene Glycol 17 gm DAILY PO 03/03/25 18:40 03/07/25 10:04 17 GM Clonidine HCl 0.2 mg Q8HR PO 03/04/25 14:00 03/12/25 05:20 0.2 MG Prazosin HCl 1 mg Q12HR PO 03/05/25 22:00 03/11/25 22:12 1 MG Famotidine 10 mg EOD IV 03/08/25 10:00 03/10/25 09:31 10 MG Doxycycline Hyclate 100 ml @ 50 mls/hr Q12H IV 03/07/25 00:00 03/12/25 00:26 50 MLS/HR Bumetanide 2 mg Q8HR IV 03/06/25 22:00 03/12/25 05:21 2 MG Amlodipine Besylate 10 mg DAILY PO 03/08/25 10:00 03/11/25 12:12 10 MG Nicardipine HCl 50 mg/Sodium Chloride 250 ml @ 25 mls/hr Q10H IV 03/07/25 15:00 03/09/25 10:35 50 MLS/HR Carvedilol 25 mg Q12HR PO 03/12/25 10:00 Minoxidil 5 mg DAILY PO 03/12/25 10:00 objective General: the patient is well developed and nourished. No acute distress. Intubated MENTAL STATUS: Subjective SPEECH, LANGUAGE, HIGHER CORTICAL FUNCTION: Intubated CRANIAL NERVES: Pupils are equal, round and reactive. There is conjugated rolling eye movement. Facial sensation intact in all three divisions bilaterally. Mandibular strength intact. Facial muscles symmetrical and strength intact. SENSATION: Okay to painful stimuli MOTOR: Normal tone in the upper and lower extremity. Normal muscle bulk. No fasciculations. No abnormal movements or posturing. He moves the arms and legs a little bit REFLEXES: Deep tendon reflexes normal and symmetrical. No pathological reflexes. CEREBELLAR/COORDINATION: Deferred GAIT: Deferred laboratory and microbiology Laboratory Tests 03/12/25 02:32 Test 03/12/25 02:32 Range/Units Serum Glucose 96 74-106 mg/dL Problem List Altered mental status Metabolic encephalopathy Hypoxic encephalopathy Toxic encephalopathy Acute respiratory failure, status post intubation Elevated troponin one/heart attack Acute kidney failure on hemodialysis Elevated stiff function tests Multiple strokes/TIA with residual left-sided weakness Polyneuropathy Assessment/Plan Monitoring Supportive treatment EEG ICU care Stabilize vitals Respiratory support/vent management Oxygen IV antibiotics Aspirin 81 mg daily GI prophylaxis/famotidine DVT prophylaxis Oxygen Antibiotics Nephrology on case/Hemodialysis Cardiology on case Pulmonology on case More recommendation per clinical course This medical document was created using an electronic medical record system with [employer] dictation system. Although this document has been carefully reviewed, there may still be some phonetic and typographical errors. These areas are purely typographical due to imperfections of the software programs, and do not reflect any compromise in the patient's medical care. Prognosis Guarded Dietary Evaluation Review Comments: 1) Initiate Nephro-Tayla @ 1 tb qd 2) If patient remains NPO > 7 days, consider EN/TPN to meet at least 75% of estimated daily needs 3) If GI route is preferred, consider Nepro CarbSteady @ 40 mL/hr goal rate as tolerated. EN regimen will provide 2222 kcals (including Propofol), 78g Pro, and 715 mL free H2O per 24 hrs. Goal rate will meet ~ 98% estimated daily energy needs and ~ 72% estimated daily protein needs 4) Advance to renal cardiac diet when medically feasible, pending ST approval 5) Follow-up with cardiology, pulmonology, and nephrology 6) Continue to monitor I&O, labs, and skin integrity Expected Outcomes/Goals: 1) patient to receive nutrition support within 7 days of NPO status 2) GI symptoms and labs to improve 3) diet to advance 4) f/u in 2-3 days Plan discussed with: Other ERASMO CHO MD Mar 12, 2025 10:54
[2025-03-12] MEDS: CARVEDILOL 12.5 MG TAB PO SCH (11:39)
[2025-03-12] MEDS: MINOXIDIL 2.5 MG TAB PO SCH (11:41)
--- NOTE | 2025-03-12 11:42 | DVHPN2 ---
Assessment/Plan Assessment/Plan ICU note 54 M with resistant HTN (with noted allergies but reported making him feel "very sick", no anaphylaxis hx), CKD4, carotid artery stenosis s/p stenting, TIAs, thyroid disease. intubated for acute hypoxic RF 2/2 pulm edema. currently on HD. clean coronaries in 2022. prior plan for BAT and renal denervations. seen today. titrating up bp meds. dp pulse diminished on right foot, art duplex ordered. dc tlc, add picc line. c/w sed vacation and cpap physical exam intubated, sedated on mech vent PERLLA moving to pain s1 s2 rrr mechanical breath sounds abdomen soft trace le edema labs ekg imaging reviewed assessment and plan acute hypoxic RF req mech vent aspiration PNA gp vs gn CHANDRA ATN on CKD on HD HTN emergency pulmonary edema type 2 AL demand ischemia and decreased renal clearance GPC bacteremia c/w mech vent daily SAT SBT maintain sbp <150, c/w nicardipine HD per renal, bumex per renal c/w vanc Zosyn start nepro start oral anti htn (will have to use alternatives for allergies?) now on prazosin, clonidine, coreg and minoxidil dc hydrocortisone art duplex diet nepro dvt ppx heprain gi ppx pepcid condition critical prognosis poor critical care time 45 minutes Plan discussed with: Patient My Orders Orders - DION ROSA MD Procedure Category Date Status Time Insertion Of Venous XY 03/11/25 Resulted Cath 13:48 Cpap Trial For Am ORDERS 03/12/25 Transmitted 04:00 Chest Xray 1 View XY 03/12/25 Resulted 04:00 Carvedilol Tablet PHA 03/12/25 In Process (Coreg Tablet) 10:00 Minoxidil Tablet PHA 03/12/25 In Process (Loniten Tablet) 10:00 Bilat Lower Dvt US 03/12/25 Resulted 09:30 Communication Order ORDERS 03/12/25 Transmitted 09:30 Bilat Low Ext Art US 03/12/25 Logged Duplex 11:28 Basic Metabolic Panel LAB 03/13/25 Verified 04:00 Complete Blood Count LAB 03/13/25 Verified 04:00 Phosphorus LAB 03/13/25 Verified 04:00 Magnesium LAB 03/13/25 Verified 04:00 Date of Service: Mar 12, 2025 Billing Provider: DION ROSA MD Common Visit Codes: 21946-[id number] CARE 30-74 MIN DION ROSA MD Mar 12, 2025 11:42
[2025-03-12] MEDS: NICARDIPINE HCL IN SODIUM CHLO 200 ML IV SCH (12:05)
--- NOTE | 2025-03-12 12:17 | DVH ---
Indication: diminished dp pulse Technique: Real- time ultrasound images of the bilateral lower extremity with grayscale, color, and spectral wave Doppler. Comparison: US BILAT LOWER DVT on DOS: 03/12/25, US RT UPPER DVT on DOS: 02/24/25, US RENAL ARTERY COMP on DOS: 02/22/25, RENAL ARTERY LMTD on DOS: 04/19/20 Findings: The right common femoral and proximal superficial femoral arteries are not characterized secondary to overlying dressing/line. Triphasic waveforms within the distal right SFA, popliteal artery. Monoph asic waveform in the right posterior tibial and dorsalis pedis arteries. Biphasic/triphasic waveforms left PHOTO STYLIST, SFA, popliteal, dorsalis pedis and posterior tibial arteries Peak systolic velocities are as follows (in cm/s): Right: Common femoral artery: Nonvisualized Profunda femoris: Nonvisualized Proximal superficial femoral: Nonvisualized Mid superficial femoral artery: 84 Distal superficial femoral artery: 82 Popliteal artery: 79 Posterior tibial artery: 41 Dorsalis pedis artery: 13 Left: Common femoral artery: 95 Profunda femoris: 73 Proximal superficial femoral: 95 Mid superficial femoral artery: 77 Distal superficial femoral artery: 81 Popliteal artery: 69 Posterior tibial artery: 63 Dorsalis pedis artery: 148 Impression: Right PHOTO STYLIST and proximal SFA not visualized secondary to overlying dressing/line. Diminished velocities within the right dorsalis pedis artery and monophasic waveforms in the right po sterior tibial / dorsalis pedis arteries consistent with hemodynamically significant stenosis. CT ang iogram of the lower extremities can be obtained to further characterize. Focal elevation left dorsalis pedis artery consistent with hemodynamically significant stenosis
--- NOTE | 2025-03-12 13:51 | DVHPN2 ---
Progress Note - Dictate Date Seen: Mar 12, 2025 Has the PT tested + for MRSA If YES, has PT been informed?: No Medical Necessity Reason Pt with a Central, PICC or Fol: Yes The following are medically ne: Noriega Catheter Reason for noriega catheter: Strict I&O Subjective CPAP trial failed today. Patient is trying to breathe over the vent. Had an episode of hypertensive crisis requiring restarting or nicardipine drip. vital signs Vital Sign Date Time Temp Pulse Resp B/P (MAP) Pulse Ox O2 Delivery O2 Flow Rate FiO2 03/12/25 12:39 136 182/106 03/12/25 12:17 27 100 30 03/12/25 08:00 Mechanical Ventilator+ 03/12/25 05:30 99.1 210.4 Total Intake and Output 03/11/25 03/11/25 03/12/25 15:00 23:00 07:00 Intake Total 214.471 ml 287.13 ml 230.8 ml Output Total 50 ml 10 ml Balance 214.471 ml 237.13 ml 220.8 ml medications Current Medications Medications Dose Ordered Sig/Shayan Route Start Time Stop Time Status Last Admin Dose Admin Aspirin 81 mg DAILY PO 02/22/25 10:00 03/12/25 11:38 81 MG Levothyroxine Sodium 50 mcg QAM@0600 PO 02/22/25 06:00 03/12/25 05:20 50 MCG Sodium Chloride 10 ml Q8HR IV 02/22/25 06:00 03/12/25 05:21 10 ML Midazolam HCl 50 ml @ 1 mls/hr Q24H IV 02/25/25 21:30 03/07/25 03:49 7 MLS/HR Fentanyl Citrate 250 ml @ 2.5 mls/hr Q24H IV 02/25/25 21:30 03/12/25 12:34 2.5 MLS/HR Ipratropium [place] 0.5 mg Q4HR NEB 02/26/25 14:00 03/12/25 10:11 0.5 MG Heparin Sodium (Porcine) 5,000 units Q12HR SC 02/27/25 22:00 03/12/25 11:45 5,000 UNITS Diagnostic Test (Pha) 1 strip Q6HR 02/27/25 12:00 03/12/25 11:46 1 STRIP Insulin Human Regular Q6HR SC 02/27/25 12:00 03/05/25 18:48 2 UNITS Dextrose 50 ml UD PRN IV 02/27/25 11:45 Enteral Nutritional Formula 1,000 ml 30ML/HR GT 03/03/25 09:30 03/03/25 14:56 1,000 ML Sennosides 8.6 mg HS PO 03/03/25 22:00 03/08/25 21:31 8.6 MG Polyethylene Glycol 17 gm DAILY PO 03/03/25 18:40 03/12/25 11:42 17 GM Clonidine HCl 0.2 mg Q8HR PO 03/04/25 14:00 03/12/25 05:20 0.2 MG Prazosin HCl 1 mg Q12HR PO 03/05/25 22:00 03/12/25 11:42 1 MG Famotidine 10 mg EOD IV 03/08/25 10:00 03/12/25 11:38 10 MG Doxycycline Hyclate 100 ml @ 50 mls/hr Q12H IV 03/07/25 00:00 03/12/25 11:46 50 MLS/HR Bumetanide 2 mg Q8HR IV 03/06/25 22:00 03/12/25 05:21 2 MG Amlodipine Besylate 10 mg DAILY PO 03/08/25 10:00 03/12/25 11:44 10 MG Nicardipine HCl 50 mg/Sodium Chloride 250 ml @ 25 mls/hr Q10H IV 03/07/25 15:00 03/09/25 10:35 50 MLS/HR Carvedilol 25 mg Q12HR PO 03/12/25 10:00 03/12/25 11:39 25 MG Nicardipine/ Sodium Chloride 200 ml @ 50 mls/hr Q4H IV 03/12/25 12:05 UNV Minoxidil 5 mg Q12HR NG 03/12/25 22:00 UNV objective HEENT: ET tube in place Pulmonary: Lungs diminished on auscultation bilaterally Cardiovascular S1-S2, no S3 or S4 Abdomen: Bowel sounds positive, soft no rebound tenderness Skin: No rash Neurological: Trying to breathe over the vent Extremities: 1+ edema in the lower the laboratory and microbiology Laboratory Tests 03/12/25 02:32 Test 03/12/25 02:32 Range/Units Serum Glucose 96 74-106 mg/dL Assessment/Plan Assessment Hemodialysis dependent Severe CHANDRA secondary to hypertensive crisis and end organ damage Anuric CKD stage 4 is his baseline, likely progression to Chronic kidney disease five HTN emergency, patient has historically refused oral anti hypertensives due to multiple "allergies" and side effects Endorsed poor tolerance to multiple antihypertensive meds Multiple cardiology and nephrology evaluations at [facility], [facility], etc have not helped him because he "cannot take any anti hypertensives orally" He was offered nephrectomy and HD at [facility] recently but declined He was sent for renal denervation and or osmar-receptor stimulation therapy but he could not get access to this Acute hypoxic respiratory failure on supplemental oxygen Pneumonia Bacteremia gram positive cocci elevated troponin, r/o NSTEMI h/o carotid artery stenosis s/p stent h/o TIA Hypothyroidism PTSD Assessment/Plan: Hemodialysis Sunday, last dialysis yesterday Discontinue Bumex Carvedilol was increased, minoxidil to be twice a day, wean off nicardipine drip is/it project manager to arrange chair time Tunneled line was placed today Patient tolerating well current antihypertensive regimen Tolerating Minoxidil on low-dose amlodipine, carvedilol Consider resuming clonidine patch 0.3 mg weekly if needed On prazosin No evidence of renal recovery. Plan of care discussed with the bedside Remove right groin central line, okay to place PICC line Plan of care from Nephrology standpoint discussed with the at bedside in addition to the hospitalist today Dietary Evaluation Review Comments: 1) Initiate Nephro-Tayla @ 1 tb qd 2) If patient remains NPO > 7 days, consider EN/TPN to meet at least 75% of estimated daily needs 3) If GI route is preferred, consider Nepro CarbSteady @ 40 mL/hr goal rate as tolerated. EN regimen will provide 2222 kcals (including Propofol), 78g Pro, and 715 mL free H2O per 24 hrs. Goal rate will meet ~ 98% estimated daily energy needs and ~ 72% estimated daily protein needs 4) Advance to renal cardiac diet when medically feasible, pending ST approval 5) Follow-up with cardiology, pulmonology, and nephrology 6) Continue to monitor I&O, labs, and skin integrity Expected Outcomes/Goals: 1) patient to receive nutrition support within 7 days of NPO status 2) GI symptoms and labs to improve 3) diet to advance 4) f/u in 2-3 days Plan discussed with: Patient, Spouse BETI ALEXANDER MD Mar 12, 2025 13:51
[2025-03-12] MEDS: NICARDIPINE HCL IN SODIUM CHLO 200 ML IV ONE (13:54)
[2025-03-12] MEDS: DEXMEDETOMIDINE HCL IN D5W 100 ML IV SCH (14:00)
[2025-03-12] MEDS: fentaNYL Drip 2500mCg/250mlNS 250 ML IV SCH (14:00)
--- NOTE | 2025-03-12 22:51 | DVHPN2 ---
Progress Note - Dictate Date Seen: Mar 12, 2025 Has the PT tested + for MRSA If YES, has PT been informed?: No Medical Necessity Reason Pt with a Central, PICC or Fol: Yes The following are medically ne: Noriega Catheter Reason for noriega catheter: Strict I&O Subjective Patient seen and examined at bedside. intubated on mechanical ventilator. Overnight events reviewed. vital signs Vital Sign Date Time Temp Pulse Resp B/P (MAP) Pulse Ox O2 Delivery O2 Flow Rate FiO2 03/12/25 21:59 114 25 131/77 (95) 99 30 03/12/25 20:45 98.8 209.8 03/12/25 20:00 Mechanical Ventilator+ Total Intake and Output 03/11/25 03/11/25 03/12/25 15:00 23:00 07:00 Intake Total 214.471 ml 287.13 ml 237.61 ml Output Total 50 ml 10 ml Balance 214.471 ml 237.13 ml 227.61 ml medications Current Medications Medications Dose Ordered Sig/Shayan Route Start Time Stop Time Status Last Admin Dose Admin Aspirin 81 mg DAILY PO 02/22/25 10:00 03/12/25 11:38 81 MG Levothyroxine Sodium 50 mcg QAM@0600 PO 02/22/25 06:00 03/12/25 05:20 50 MCG Sodium Chloride 10 ml Q8HR IV 02/22/25 06:00 03/12/25 21:49 10 ML Midazolam HCl 50 ml @ 1 mls/hr Q24H IV 02/25/25 21:30 03/07/25 03:49 7 MLS/HR Ipratropium [place] 0.5 mg Q4HR NEB 02/26/25 14:00 03/12/25 21:59 0.5 MG Heparin Sodium (Porcine) 5,000 units Q12HR SC 02/27/25 22:00 03/12/25 21:47 5,000 UNITS Diagnostic Test (Pha) 1 strip Q6HR 02/27/25 12:00 03/12/25 18:15 1 STRIP Insulin Human Regular Q6HR SC 02/27/25 12:00 03/05/25 18:48 2 UNITS Dextrose 50 ml UD PRN IV 02/27/25 11:45 Enteral Nutritional Formula 1,000 ml 30ML/HR GT 03/03/25 09:30 03/03/25 14:56 1,000 ML Sennosides 8.6 mg HS PO 03/03/25 22:00 03/08/25 21:31 8.6 MG Polyethylene Glycol 17 gm DAILY PO 03/03/25 18:40 03/12/25 11:42 17 GM Clonidine HCl 0.2 mg Q8HR PO 03/04/25 14:00 03/12/25 18:15 0.2 MG Prazosin HCl 1 mg Q12HR PO 03/05/25 22:00 03/12/25 21:55 1 MG Famotidine 10 mg EOD IV 03/08/25 10:00 03/12/25 11:38 10 MG Doxycycline Hyclate 100 ml @ 50 mls/hr Q12H IV 03/07/25 00:00 03/12/25 11:46 50 MLS/HR Amlodipine Besylate 10 mg DAILY PO 03/08/25 10:00 03/12/25 11:44 10 MG Carvedilol 25 mg Q12HR PO 03/12/25 10:00 03/12/25 21:55 25 MG Nicardipine/ Sodium Chloride 200 ml @ 50 mls/hr Q4H IV 03/12/25 12:05 Minoxidil 5 mg Q12HR PO 03/12/25 22:00 Fentanyl Citrate 250 ml @ 2.5 mls/hr Q24H IV 03/12/25 14:00 objective Gen.: Patient lying in bed in medical ICU; intubated on mechanical ventilator. Head: Normocephalic, atraumatic. Eyes: PERRLA. Ears: Normal external anatomy. Throat: Endotracheal tube and orogastric tube in place. Neck: Supple, trachea midline. Chest: Transmitted breath sounds bilaterally. Decreased air entry bilaterally. No wheezing. Bibasilar crackles. Cardiovascular: Positive S1, positive S2. Regular rate and rhythm. Abdomen: Positive bowel sounds in all 4 quadrants. Soft, nontender, nondistended. : Noriega in place. Normal external genitalia. Rectal: Deferred. Skin: Warm, dry. Intact. Extremities: 2+ radial pulses bilaterally. No lower extremity edema. Neuro: Off sedation laboratory and microbiology Laboratory Tests 03/12/25 02:32 Test 03/12/25 02:32 Range/Units Serum Glucose 96 74-106 mg/dL Assessment/Plan Impression: Acute hypoxemic respiratory failure On mechanical ventilator Fluid overload Pneumonia Atelectasis Pulmonary edema Anemia ESRD, on hemodialysis Events: Remains on vent support AC mode; RR 22, tidal volume 500, PEEP 5, FiO2 30% Remains off sedation On Fentanyl drip for analgesia. CPAP today. Patient developed elevated blood pressure and tachycardia and was placed back on full support. Continue tube feeds for nutritional support Blood pressure control On PO antihypertensives Complete course of antibiotics WBC within normal limits Blood cultures show no growth after 5 days Sputum culture positive for MRSA. Continue bronchodilators Monitor hemoglobin - trended down to 8.6 g/dL BP control per Nephrology Hemodialysis per Nephrology Diurese with Bumex IV. Monitor renal function Monitor electrolytes. Supplement as needed Monitor UOP. Monitor ins and outs. EEG results reviewed, mildly abnormal EEG. CT head reveals no ICH or stroke. Neurology recommendations appreciated. Continue SBT/RIVKA CPAP with PS 8, PEEP of 5. OK to increase PS to max 20 cmH2O to achieve tidal volume 400-500 mL. Transfer care to Dr. Ho from the pulmonary standpoint. Bronchoscopy was performed 02/26/25 for pulmonary toileting -see separate note for procedure in detail Labs and imaging reviewed Plan: On mechanical ventilation S/p intubation Titrate FIO2 to keep O2 saturation above 90%. Off sedation Antibiotics Follow up cultures Bronchodilators Monitor hemoglobin Transfuse if less than 7.0 g/dL. Accu-Cheks, ISS prn. Monitor renal function F/u nephrology Management deferred HD per Nephrology Monitor electrolytes. Supplement as needed Maintain euvolemia Pressors as needed for hemodynamic support To maintain a mean arterial pressure of 65 mmHg SBT/RVIKA. DVT prophylaxis Prognosis: Poor given patient's multiple co-morbidities. Condition: Critical Rest of plan per hospitalist and other consultants. A total of 35 minutes of critical care time was spent reviewing the patient record, examining the patient, making a diagnostic and therapeutic plan, discussing this plan with the medical personnel, following up on diagnostic studies and following the patient for clinical stability excluding any and all procedures. At least 50% of this time was spent in direct, gvfe-up-cdnk contact. Thank you, Dr. Bass, for allowing me to participate in this patient's care. Further recommendations will depend on the patient's clinical course. Please do not hesitate to contact me if you have any questions or concerns. This medical document was created using an electronic medical record system with [employer] dictation system. Although these documentations are being carefully reviewed, there may still be some phonetic and typographical changes. The errors are purely typographical, due to imperfection on the software program, and do not reflect any compromise in the patient's medical care. Dietary Evaluation Review Comments: 1) Initiate Nephro-Tayla @ 1 tb qd 2) If patient remains NPO > 7 days, consider EN/TPN to meet at least 75% of estimated daily needs 3) If GI route is preferred, consider Nepro CarbSteady @ 40 mL/hr goal rate as tolerated. EN regimen will provide 2222 kcals (including Propofol), 78g Pro, and 715 mL free H2O per 24 hrs. Goal rate will meet ~ 98% estimated daily energy needs and ~ 72% estimated daily protein needs 4) Advance to renal cardiac diet when medically feasible, pending ST approval 5) Follow-up with cardiology, pulmonology, and nephrology 6) Continue to monitor I&O, labs, and skin integrity Expected Outcomes/Goals: 1) patient to receive nutrition support within 7 days of NPO status 2) GI symptoms and labs to improve 3) diet to advance 4) f/u in 2-3 days Plan discussed with: Other (HEIDY Monahan) Critical Care Time(min): 35 BÁRBARA FISH MD Mar 12, 2025 22:51
[2025-03-13] VITALS (108 sets, daily range): BP systolic 87–192; BP diastolic 45–113; PULSE 100–144; RESP 11–32; TEMP 97.5–100.1; O2SAT 90–100
[2025-03-13] MEDS: MINOXIDIL 2.5 MG TAB PO SCH (00:09)
[2025-03-13 03:47] LABS: Nucleated Red Blood Cells % 0.1 %
[2025-03-13 03:53] LABS: Hematocrit 21.9 % (41.0-53.0); Hemoglobin 8.0 g/dL (13.5-17.5); Mean Corpuscular Hemoglobin 32.4 pg (28.0-32.0); Mean Corpuscular Volume 88.7 fL (80.0-100.0)
[2025-03-13 04:09] LABS: Anion Gap 17 (5-15); BUN/Creatinine Ratio 12.9 (10.0-20.0); Carbon Dioxide 23 mmol/L (20-31); Glucose 99 mg/dL (74-106); Magnesium 2.5 mg/dL (1.6-2.6); Potassium 3.9 mmol/L (3.5-5.1)
[2025-03-13 04:12] LABS: Alanine Aminotransferase 143 U/L (7-40); Albumin 3.1 g/dL (3.2-4.8); Alkaline Phosphatase 148 U/L (46-116); Bilirubin, Total < 0.2 mg/dL (0.2-1.0); Calcium 8.4 mg/dL (8.7-10.4); Chloride 96 mmol/L (98-107); Creatine Kinase IFCC 861 U/L (46-171); Sodium 136 mmol/L (136-145); Total Protein 4.9 g/dL (5.7-8.2)
[2025-03-13 04:13] LABS: Blood Urea Nitrogen 115 mg/dL (9-23)
[2025-03-13 08:03] LABS: Base Excess -2.5 mmol/L (-2.0-3.0)
[2025-03-13] MEDS ORDERED: clonazePAM 0.5 MG TAB PO PRN (09:15)
[2025-03-13] MEDS: HEPARIN 1,000 UNITS/ml 1ML VIAL IV ONE (09:15)
[2025-03-13] MEDS: INSULIN LISPRO (HUMAN) 100 UNITS/ML ML SC SCH (10:00)
[2025-03-13 10:18] LABS: Hepatitis B Surface Antigen Negative (Negative)
[2025-03-13 10:21] LABS: Hepatitis C Antibody Negative (Negative)
--- NOTE | 2025-03-13 12:15 | DVHPN2 ---
Progress Note - Dictate Date Seen: Mar 13, 2025 Has the PT tested + for MRSA If YES, has PT been informed?: No Medical Necessity Reason Pt with a Central, PICC or Fol: Yes The following are medically ne: Noriega Catheter Reason for noriega catheter: Strict I&O vital signs Vital Sign Date Time Temp Pulse Resp B/P (MAP) Pulse Ox O2 Delivery O2 Flow Rate FiO2 03/13/25 12:04 117 25 129/83 (98) 96 30 03/13/25 08:00 Mechanical Ventilator+ 03/13/25 06:45 99.3 99.3 Total Intake and Output 03/12/25 03/12/25 03/13/25 15:00 23:00 07:00 Intake Total 266.26 ml 474.135 ml 592.48 ml Output Total 25 ml 20 ml Balance 266.26 ml 449.135 ml 572.48 ml medications Current Medications Medications Dose Ordered Sig/Shayan Route Start Time Stop Time Status Last Admin Dose Admin Aspirin 81 mg DAILY PO 02/22/25 10:00 03/12/25 11:38 81 MG Levothyroxine Sodium 50 mcg QAM@0600 PO 02/22/25 06:00 03/13/25 06:20 50 MCG Sodium Chloride 10 ml Q8HR IV 02/22/25 06:00 03/13/25 06:16 10 ML Midazolam HCl 50 ml @ 1 mls/hr Q24H IV 02/25/25 21:30 03/07/25 03:49 7 MLS/HR Ipratropium [place] 0.5 mg Q4HR NEB 02/26/25 14:00 03/13/25 09:41 0.5 MG Heparin Sodium (Porcine) 5,000 units Q12HR SC 02/27/25 22:00 03/12/25 21:47 5,000 UNITS Diagnostic Test (Pha) 1 strip Q6HR 02/27/25 12:00 03/13/25 06:16 1 STRIP Dextrose 50 ml UD PRN IV 02/27/25 11:45 Enteral Nutritional Formula 1,000 ml 30ML/HR GT 03/03/25 09:30 03/03/25 14:56 1,000 ML Sennosides 8.6 mg HS PO 03/03/25 22:00 03/08/25 21:31 8.6 MG Polyethylene Glycol 17 gm DAILY PO 03/03/25 18:40 03/12/25 11:42 17 GM Clonidine HCl 0.2 mg Q8HR PO 03/04/25 14:00 03/13/25 06:19 0.2 MG Prazosin HCl 1 mg Q12HR PO 03/05/25 22:00 03/12/25 21:55 1 MG Famotidine 10 mg EOD IV 03/08/25 10:00 03/12/25 11:38 10 MG Doxycycline Hyclate 100 ml @ 50 mls/hr Q12H IV 03/07/25 00:00 03/13/25 00:09 50 MLS/HR Amlodipine Besylate 10 mg DAILY PO 03/08/25 10:00 03/13/25 09:28 10 MG Carvedilol 25 mg Q12HR PO 03/12/25 10:00 03/13/25 09:28 25 MG Nicardipine/ Sodium Chloride 200 ml @ 50 mls/hr Q4H IV 03/12/25 12:05 Minoxidil 5 mg Q12HR PO 03/12/25 22:00 03/13/25 00:09 5 MG Fentanyl Citrate 250 ml @ 2.5 mls/hr Q24H IV 03/12/25 14:00 Clonazepam 1 mg Q12HP PRN PO 03/13/25 09:15 Insulin Human Lispro Q4HR SC 03/13/25 10:00 laboratory and microbiology Laboratory Tests 03/13/25 03:00 Test 03/13/25 03:00 Range/Units Serum Glucose 99 74-106 mg/dL Assessment/Plan Acute hypoxemic respiratory failure On mechanical ventilator Fluid overload Pneumonia Atelectasis Pulmonary edema Anemia ESRD, on hemodialysis Events: Remains on vent support AC mode; RR 22, tidal volume 500, PEEP 5, FiO2 30% Remains off sedation On Fentanyl drip for analgesia. pt tolerating PS mode not awake enough yet Plan: On mechanical ventilation S/p intubation Titrate FIO2 to keep O2 saturation above 90%. Off sedation daily cpap trials extubate when ready Antibiotics Follow up cultures Bronchodilators Monitor hemoglobin Transfuse if less than 7.0 g/dL. Accu-Cheks, ISS prn. Monitor renal function F/u nephrology Management deferred HD per Nephrology Monitor electrolytes. Supplement as needed Maintain euvolemia Pressors as needed for hemodynamic support To maintain a mean arterial pressure of 65 mmHg SBT/RIVKA. DVT prophylaxis crit care time 35 min Dietary Evaluation Review Comments: 1) Initiate Nephro-Tayla @ 1 tb qd 2) If patient remains NPO > 7 days, consider EN/TPN to meet at least 75% of estimated daily needs 3) If GI route is preferred, consider Nepro CarbSteady @ 40 mL/hr goal rate as tolerated. EN regimen will provide 2222 kcals (including Propofol), 78g Pro, and 715 mL free H2O per 24 hrs. Goal rate will meet ~ 98% estimated daily energy needs and ~ 72% estimated daily protein needs 4) Advance to renal cardiac diet when medically feasible, pending ST approval 5) Follow-up with cardiology, pulmonology, and nephrology 6) Continue to monitor I&O, labs, and skin integrity Expected Outcomes/Goals: 1) patient to receive nutrition support within 7 days of NPO status 2) GI symptoms and labs to improve 3) diet to advance 4) f/u in 2-3 days Plan discussed with: Other (rn) GERMÁN TORRES MD Mar 13, 2025 12:15
--- NOTE | 2025-03-13 15:29 | DVHPN2 ---
Assessment/Plan Assessment/Plan ICU note 54 M with resistant HTN (with noted allergies but reported making him feel "very sick", no anaphylaxis hx), CKD4, carotid artery stenosis s/p stenting, TIAs, thyroid disease. intubated for acute hypoxic RF 2/2 pulm edema. currently on HD. clean coronaries in 2022. prior plan for BAT and renal denervations. seen today. plan to extubate today. starting oral klonazepam. discussed with pulm. physical exam intubated, sedated on mech vent PERLLA moving to pain s1 s2 rrr mechanical breath sounds abdomen soft trace le edema labs ekg imaging reviewed assessment and plan acute hypoxic RF req mech vent aspiration PNA gp vs gn CHANDRA ATN on CKD on HD HTN emergency pulmonary edema type 2 IL demand ischemia and decreased renal clearance GPC bacteremia c/w mech vent daily SAT SBT maintain sbp <150, c/w nicardipine HD per renal, bumex per renal c/w vanc Zosyn start nepro start oral anti htn (will have to use alternatives for allergies?) now on p razosin, clonidine, coreg and minoxidil dc hydrocortisone art duplex diet nepro dvt ppx heprain gi ppx pepcid condition critical prognosis poor critical care time 45 minutes Plan discussed with: Spouse My Orders Orders - DION ROSA MD Procedure Category Date Status Time * Picc Line Consult CONS 03/12/25 Transmitted 16:01 Fentanyl Drip PHA 03/12/25 In Process 2500mcg/250mlns 14:00 Dexmedetomidine Hcl PHA 03/12/25 In Process In D5w (Precedex) 14:00 Abg W/ Co-Ox RT 03/13/25 Logged 06:00 Clonazepam Tablet PHA 03/13/25 In Process (Klonopin Tablet) 09:15 Insulin Lispro PHA 03/13/25 In Process (Human) (Humalog) 10:00 Abg W/ Co-Ox RT 03/13/25 Logged 15:16 Date of Service: Mar 13, 2025 Billing Provider: DION ROSA MD Common Visit Codes: [id number] CARE 30-74 MIN DION ROSA MD Mar 13, 2025 15:29
[2025-03-13 15:38] LABS: Base Excess 0.4 mmol/L (-2.0-3.0)
[2025-03-13] MEDS ORDERED: ALBUMIN 25% 100 ML IV ONE (16:45)
[2025-03-13] MEDS: NICARDIPINE HCL IN SODIUM CHLO 200 ML IV SCH (16:45)
[2025-03-13] MEDS: MIDODRINE HCL 10 MG TAB PO ONE (16:55)
--- NOTE | 2025-03-13 17:55 | DVHPN2 ---
Progress Note - Dictate Date Seen: Mar 13, 2025 Has the PT tested + for MRSA If YES, has PT been informed?: No Medical Necessity Reason Pt with a Central, PICC or Fol: Yes The following are medically ne: Noriega Catheter Reason for noriega catheter: Strict I&O Subjective Patient was extubated about 10 minutes ago he is doing well. vital signs Vital Sign Date Time Temp Pulse Resp B/P (MAP) Pulse Ox O2 Delivery O2 Flow Rate FiO2 03/13/25 16:50 20 03/13/25 16:48 97 03/13/25 16:16 122/66 03/13/25 14:38 132 30 03/13/25 14:00 Mechanical Ventilator+ 03/13/25 12:00 98.5 98.5 Total Intake and Output 03/12/25 03/12/25 03/13/25 15:00 23:00 07:00 Intake Total 266.26 ml 474.135 ml 594.98 ml Output Total 25 ml 20 ml Balance 266.26 ml 449.135 ml 574.98 ml medications Current Medications Medications Dose Ordered Sig/Shayan Route Start Time Stop Time Status Last Admin Dose Admin Aspirin 81 mg DAILY PO 02/22/25 10:00 03/13/25 13:55 81 MG Levothyroxine Sodium 50 mcg QAM@0600 PO 02/22/25 06:00 03/13/25 06:20 50 MCG Sodium Chloride 10 ml Q8HR IV 02/22/25 06:00 03/13/25 16:16 10 ML Midazolam HCl 50 ml @ 1 mls/hr Q24H IV 02/25/25 21:30 03/07/25 03:49 7 MLS/HR Ipratropium [place] 0.5 mg Q4HR NEB 02/26/25 14:00 03/13/25 14:38 0.5 MG Heparin Sodium (Porcine) 5,000 units Q12HR SC 02/27/25 22:00 03/13/25 13:54 5,000 UNITS Dextrose 50 ml UD PRN IV 02/27/25 11:45 Enteral Nutritional Formula 1,000 ml 30ML/HR GT 03/03/25 09:30 03/03/25 14:56 1,000 ML Sennosides 8.6 mg HS PO 03/03/25 22:00 03/08/25 21:31 8.6 MG Polyethylene Glycol 17 gm DAILY PO 03/03/25 18:40 03/12/25 11:42 17 GM Clonidine HCl 0.2 mg Q8HR PO 03/04/25 14:00 03/13/25 16:16 0.2 MG Prazosin HCl 1 mg Q12HR PO 03/05/25 22:00 03/13/25 13:56 1 MG Famotidine 10 mg EOD IV 03/08/25 10:00 03/12/25 11:38 10 MG Doxycycline Hyclate 100 ml @ 50 mls/hr Q12H IV 03/07/25 00:00 03/13/25 13:56 50 MLS/HR Amlodipine Besylate 10 mg DAILY PO 03/08/25 10:00 03/13/25 09:28 10 MG Carvedilol 25 mg Q12HR PO 03/12/25 10:00 03/13/25 09:28 25 MG Minoxidil 5 mg Q12HR PO 03/12/25 22:00 03/13/25 13:55 5 MG Fentanyl Citrate 250 ml @ 2.5 mls/hr Q24H IV 03/12/25 14:00 Clonazepam 1 mg Q12HP PRN PO 03/13/25 09:15 Nicardipine/ Sodium Chloride 200 ml @ 50 mls/hr Q4H IV 03/13/25 16:45 objective HEENT: ET tube has been removed in the interim. Pulmonary: Lungs diminished on auscultation bilaterally Cardiovascular S1-S2, no S3 or S4 Abdomen: Bowel sounds positive, soft no rebound tenderness Skin: No rash Neurological: Trying to breathe over the vent Extremities: 1+ edema in the lower the laboratory and microbiology Laboratory Tests 03/13/25 03:00 Test 03/13/25 03:00 Range/Units Serum Glucose 99 74-106 mg/dL Assessment/Plan Assessment Hemodialysis dependent Severe CHANDRA secondary to hypertensive crisis and end organ damage Anuric CKD stage 4 is his baseline, likely progression to Chronic kidney disease five HTN emergency, patient has historically refused oral anti hypertensives due to multiple "allergies" and side effects Endorsed poor tolerance to multiple antihypertensive meds Multiple cardiology and nephrology evaluations at [facility], [facility], etc have not helped him because he "cannot take any anti hypertensives orally" He was offered nephrectomy and HD at [facility] recently but declined He was sent for renal denervation and or osmar-receptor stimulation therapy but he could not get access to this Acute hypoxic respiratory failure on supplemental oxygen Pneumonia Bacteremia gram positive cocci elevated troponin, r/o NSTEMI h/o carotid artery stenosis s/p stent h/o TIA Hypothyroidism PTSD Assessment/Plan: Hemodialysis Sunday, UF today was 3 L uneventful HD. blood pressure currently is 123/70 If possible we will do extra session for additional UF tomorrow Carvedilol was increased, minoxidil to be twice a day, wean off nicardipine drip manufacturing finance manager to arrange chair time Patient tolerating well current antihypertensive regimen Tolerating Minoxidil on low-dose amlodipine, carvedilol Consider resuming clonidine patch 0.3 mg weekly if needed On prazosin No evidence of renal recovery. Plan of care discussed with the bedside Plan of care from Nephrology standpoint discussed with the at bedside in addition to the hospitalist today Dietary Evaluation Review Comments: 1) Initiate Nephro-Tayla @ 1 tb qd 2) If patient remains NPO > 7 days, consider EN/TPN to meet at least 75% of estimated daily needs 3) If GI route is preferred, consider Nepro CarbSteady @ 40 mL/hr goal rate as tolerated. EN regimen will provide 2222 kcals (including Propofol), 78g Pro, and 715 mL free H2O per 24 hrs. Goal rate will meet ~ 98% estimated daily energy needs and ~ 72% estimated daily protein needs 4) Advance to renal cardiac diet when medically feasible, pending ST approval 5) Follow-up with cardiology, pulmonology, and nephrology 6) Continue to monitor I&O, labs, and skin integrity Expected Outcomes/Goals: 1) patient to receive nutrition support within 7 days of NPO status 2) GI symptoms and labs to improve 3) diet to advance 4) f/u in 2-3 days Plan discussed with: Patient, Spouse BETI ALEXANDER MD Mar 13, 2025 17:55
[2025-03-13] MEDS: HALOPERIDOL LACTATE 5 MG/ML INJ VIAL IM ONE (21:11)
[2025-03-13] MEDS: EPOETIN ALFA-EPBX 10,000 UNIT/1ML VIAL SC ONE (21:56)
[2025-03-13] MEDS: METOPROLOL TARTRATE 1MG/1ML-5ML VIAL IV PRN (22:35)
--- NOTE | 2025-03-13 22:57 | DVHPN2 ---
Progress Note - Dictate Date Seen: Mar 13, 2025 Has the PT tested + for MRSA If YES, has PT been informed?: No Medical Necessity Reason Pt with a Central, PICC or Fol: Yes The following are medically ne: Noriega Catheter Reason for noriega catheter: Strict I&O Subjective Mr. Mercado is a 54 years old right-handed gentleman with a history of hypertension, hypothyroidism, chronic kidney failure, systemic inflammatory response syndrome, TIA, stroke with left-sided residual weakness, seizure, brain aneurysm, PTSD, a long list of drug allergy, he came to the [facility] on 02/21/2025 with a chief complaint of chest pain, but his hospital stay was complicated with elevated troponin I/heart attack, respiratory failure and he was intubated in the evening on 02/25/2025, with appropriate treatment, the patient is stabilized and improving, but is not waking up as expected. I saw him in 07/2013 for headache, 08/05/15 for intractable headache, possible TIA, 12/17/2017 for stroke I have seen and examined the patient, talked to his nurse and has a nursing staff, eyes are open, he is responsive to visual threat but is nonresponsive to my verbal commands RN: He was responsive to verbal commands earlier today Urinalysis, 02/26/2025: WBC: 4, urine leukocyte esterase: Negative ABG, 02/25/2025: Metabolic acidosis, 02/26/2025: Hypoxia, metabolic acidosis CBC, 02/21/2025, 10.7/13.1/154/83.9, 03/08/2025: 9.6/8.7/260/87.4 BUN/CR, 03/08/2025: 52/5.15 GFR, 03/08/2020 5:13 a.m. Troponin one high sensitivity, 02/22/2025: 541, 1173, 2396, 4495, 5273 TBI/AST/ALT/AP, 03/08/2025: 0.3/637/200/211 TG/HDL/LDL/HDL, 02/22/2025: 249/177/96/30 Chest x-ray, 02/25/2025: 1. Endotracheal tube in place 6.4 cm above the ivan 2. Enteric tube below the diaphragm in the stomach. 3. Cardiopulmonary findings most likely secondary to congestive failure Chest x-ray, 03/08/2025: No significant change from the previous study. Stable support devices. Unchanged endotracheal tube, enteric tube, and right IJ catheter. CT head, 02/21/2025: 1. No acute intracranial abnormality. 2. Old lacunar infarct external capsule right basal ganglia CT head, 12/18/2017: Normal noncontrast MRA of the head CT head, 03/08/2025: No acute intracranial abnormality vital signs Vital Sign Date Time Temp Pulse Resp B/P (MAP) Pulse Ox O2 Delivery O2 Flow Rate FiO2 03/13/25 22:35 140 151/93 03/13/25 22:31 100 Oxymizer 8 N/A 03/13/25 22:31 18 03/13/25 16:00 99.1 99.1 Total Intake and Output 03/12/25 03/12/25 03/13/25 15:00 23:00 07:00 Intake Total 266.26 ml 474.135 ml 601.475 ml Output Total 25 ml 20 ml Balance 266.26 ml 449.135 ml 581.475 ml medications Current Medications Medications Dose Ordered Sig/Shayan Route Start Time Stop Time Status Last Admin Dose Admin Aspirin 81 mg DAILY PO 02/22/25 10:00 03/13/25 13:55 81 MG Levothyroxine Sodium 50 mcg QAM@0600 PO 02/22/25 06:00 03/13/25 06:20 50 MCG Sodium Chloride 10 ml Q8HR IV 02/22/25 06:00 03/13/25 21:57 10 ML Midazolam HCl 50 ml @ 1 mls/hr Q24H IV 02/25/25 21:30 03/07/25 03:49 7 MLS/HR Ipratropium [place] 0.5 mg Q4HR NEB 02/26/25 14:00 03/13/25 22:31 0.5 MG Heparin Sodium (Porcine) 5,000 units Q12HR SC 02/27/25 22:00 03/13/25 13:54 5,000 UNITS Dextrose 50 ml UD PRN IV 02/27/25 11:45 Enteral Nutritional Formula 1,000 ml 30ML/HR GT 03/03/25 09:30 03/03/25 14:56 1,000 ML Sennosides 8.6 mg HS PO 03/03/25 22:00 03/08/25 21:31 8.6 MG Polyethylene Glycol 17 gm DAILY PO 03/03/25 18:40 03/12/25 11:42 17 GM Clonidine HCl 0.2 mg Q8HR PO 03/04/25 14:00 03/13/25 16:16 0.2 MG Prazosin HCl 1 mg Q12HR PO 03/05/25 22:00 03/13/25 13:56 1 MG Famotidine 10 mg EOD IV 03/08/25 10:00 03/12/25 11:38 10 MG Doxycycline Hyclate 100 ml @ 50 mls/hr Q12H IV 03/07/25 00:00 03/13/25 13:56 50 MLS/HR Amlodipine Besylate 10 mg DAILY PO 03/08/25 10:00 03/13/25 09:28 10 MG Carvedilol 25 mg Q12HR PO 03/12/25 10:00 03/13/25 09:28 25 MG Minoxidil 5 mg Q12HR PO 03/12/25 22:00 03/13/25 13:55 5 MG Fentanyl Citrate 250 ml @ 2.5 mls/hr Q24H IV 03/12/25 14:00 Clonazepam 1 mg Q12HP PRN PO 03/13/25 09:15 Nicardipine/ Sodium Chloride 200 ml @ 50 mls/hr Q4H IV 03/13/25 16:45 Metoprolol Tartrate 2.5 mg Q6HPRN PRN IV 03/13/25 22:00 03/13/25 22:35 2.5 MG objective General: the patient is well developed and nourished. No acute distress. Intubated MENTAL STATUS: Subjective SPEECH, LANGUAGE, HIGHER CORTICAL FUNCTION: Intubated CRANIAL NERVES: Pupils are equal, round and reactive. There is conjugated rolling eye movement. Facial sensation intact in all three divisions bilaterally. Mandibular strength intact. Facial muscles symmetrical and strength intact. SENSATION: Okay to painful stimuli MOTOR: Normal tone in the upper and lower extremity. Normal muscle bulk. No fasciculations. No abnormal movements or posturing. He moves the arms and legs a little bit REFLEXES: Deep tendon reflexes normal and symmetrical. No pathological reflexes. CEREBELLAR/COORDINATION: Deferred GAIT: Deferred laboratory and microbiology Laboratory Tests 03/13/25 03:00 Test 03/13/25 03:00 Range/Units Serum Glucose 99 74-106 mg/dL Problem List Altered mental status Metabolic encephalopathy Hypoxic encephalopathy Toxic encephalopathy Acute respiratory failure, status post intubation Elevated troponin one/heart attack Acute kidney failure on hemodialysis Elevated stiff function tests Multiple strokes/TIA with residual left-sided weakness Polyneuropathy Assessment/Plan Monitoring Supportive treatment EEG ICU care Stabilize vitals Respiratory support/vent management Oxygen IV antibiotics Aspirin 81 mg daily GI prophylaxis/famotidine DVT prophylaxis Oxygen Antibiotics Nephrology on case/Hemodialysis Cardiology on case Pulmonology on case More recommendation per clinical course This medical document was created using an electronic medical record system with linkedFA dictation system. Although this document has been carefully reviewed, there may still be some phonetic and typographical errors. These areas are purely typographical due to imperfections of the software programs, and do not reflect any compromise in the patient's medical care. Prognosis Guarded Dietary Evaluation Review Comments: 1) Initiate Nephro-Tayla @ 1 tb qd 2) If patient remains NPO > 7 days, consider EN/TPN to meet at least 75% of estimated daily needs 3) If GI route is preferred, consider Nepro CarbSteady @ 40 mL/hr goal rate as tolerated. EN regimen will provide 2222 kcals (including Propofol), 78g Pro, and 715 mL free H2O per 24 hrs. Goal rate will meet ~ 98% estimated daily energy needs and ~ 72% estimated daily protein needs 4) Advance to renal cardiac diet when medically feasible, pending ST approval 5) Follow-up with cardiology, pulmonology, and nephrology 6) Continue to monitor I&O, labs, and skin integrity Expected Outcomes/Goals: 1) patient to receive nutrition support within 7 days of NPO status 2) GI symptoms and labs to improve 3) diet to advance 4) f/u in 2-3 days Plan discussed with: Other ERASMO CHO MD Mar 13, 2025 22:57
[2025-03-14] VITALS (106 sets, daily range): BP systolic 114–177; BP diastolic 62–104; PULSE 117–146; RESP 8–24; TEMP 98.4–99.8; O2SAT 92–100
[2025-03-14] MEDS: HYDROmorphone HCL 2 MG/ML VL/or syr IV ONE (03:44)
[2025-03-14 03:54] LABS: Hematocrit 26.4 % (41.0-53.0); Hemoglobin 9.3 g/dL (13.5-17.5); Mean Corpuscular Hemoglobin 31.7 pg (28.0-32.0); Mean Corpuscular Volume 90.4 fL (80.0-100.0); Nucleated Red Blood Cells % 0.0 %
[2025-03-14 04:17] LABS: Anion Gap 21 (5-15); Calcium 9.0 mg/dL (8.7-10.4); Carbon Dioxide 22 mmol/L (20-31); Potassium 3.6 mmol/L (3.5-5.1); Sodium 139 mmol/L (136-145)
[2025-03-14 04:18] LABS: Chloride 96 mmol/L (98-107)
[2025-03-14 04:23] LABS: BUN/Creatinine Ratio 10.2 (10.0-20.0); Glucose 93 mg/dL (74-106)
[2025-03-14 04:24] LABS: Blood Urea Nitrogen 64 mg/dL (9-23)
[2025-03-14] MEDS: SODIUM CHL 0.9% 1000 ML BAG XX ONE ×2 (08:00→08:39)
[2025-03-14] MEDS: cloNIDine 0.3 mg/24hr 7DAY PATCH TD SCH (09:00)
[2025-03-14] MEDS ORDERED: chlorproMAZINE HCL 25 MG/1 ML AMP IM SCH (14:00)
--- NOTE | 2025-03-14 15:12 | DVHPN2 ---
Progress Note - Dictate Date Seen: Mar 14, 2025 Has the PT tested + for MRSA If YES, has PT been informed?: No Medical Necessity Reason Pt with a Central, PICC or Fol: Yes The following are medically ne: Noriega Catheter Reason for noriega catheter: Strict I&O vital signs Vital Sign Date Time Temp Pulse Resp B/P (MAP) Pulse Ox O2 Delivery O2 Flow Rate FiO2 03/14/25 14:18 163/88 03/14/25 14:15 135 15 96 03/14/25 14:00 Nasal Cannula* 2 28 03/14/25 12:00 98.4 98.4 Total Intake and Output 03/13/25 03/13/25 03/14/25 15:00 23:00 07:00 Intake Total 85.62 ml 226.83 ml 100 ml Output Total 25 ml 20 ml Balance 85.62 ml 201.83 ml 80 ml medications Current Medications Medications Dose Ordered Sig/Shayan Route Start Time Stop Time Status Last Admin Dose Admin Aspirin 81 mg DAILY PO 02/22/25 10:00 03/13/25 13:55 81 MG Levothyroxine Sodium 50 mcg QAM@0600 PO 02/22/25 06:00 03/13/25 06:20 50 MCG Sodium Chloride 10 ml Q8HR IV 02/22/25 06:00 03/14/25 13:15 10 ML Ipratropium [place] 0.5 mg Q4HR NEB 02/26/25 14:00 03/14/25 13:03 0.5 MG Heparin Sodium (Porcine) 5,000 units Q12HR SC 02/27/25 22:00 03/14/25 08:46 5,000 UNITS Dextrose 50 ml UD PRN IV 02/27/25 11:45 Enteral Nutritional Formula 1,000 ml 30ML/HR GT 03/03/25 09:30 03/03/25 14:56 1,000 ML Sennosides 8.6 mg HS PO 03/03/25 22:00 03/08/25 21:31 8.6 MG Polyethylene Glycol 17 gm DAILY PO 03/03/25 18:40 03/12/25 11:42 17 GM Clonidine HCl 0.2 mg Q8HR PO 03/04/25 14:00 03/14/25 13:15 0.2 MG Prazosin HCl 1 mg Q12HR PO 03/05/25 22:00 03/13/25 13:56 1 MG Famotidine 10 mg EOD IV 03/08/25 10:00 03/14/25 08:45 10 MG Doxycycline Hyclate 100 ml @ 50 mls/hr Q12H IV 03/07/25 00:00 03/14/25 11:39 50 MLS/HR Amlodipine Besylate 10 mg DAILY PO 03/08/25 10:00 03/13/25 09:28 10 MG Carvedilol 25 mg Q12HR PO 03/12/25 10:00 03/13/25 09:28 25 MG Minoxidil 5 mg Q12HR PO 03/12/25 22:00 03/13/25 13:55 5 MG Clonazepam 1 mg Q12HP PRN PO 03/13/25 09:15 Nicardipine/ Sodium Chloride 200 ml @ 50 mls/hr Q4H IV 03/13/25 16:45 Hydromorphone HCl 0.25 mg Q3HPRN PRN IV 03/14/25 11:00 Prochlorperazine Edisylate 5 mg Q4HPRN PRN IV 03/14/25 12:45 laboratory and microbiology Laboratory Tests 03/14/25 03:30 Test 03/14/25 03:30 Range/Units Serum Glucose 93 74-106 mg/dL Assessment/Plan Acute hypoxemic respiratory failure On mechanical ventilator Fluid overload Pneumonia Atelectasis Pulmonary edema Anemia ESRD, on hemodialysis Events: Patient was successfully weaned from mechanical ventilation Status post extubation Transitioned to 5 liters nasal cannula Appears delirious Labs and imaging reviewed Plan: Supplemental oxygen Titrate FIO2 to keep O2 saturation above 90%. Incentive spirometry Aspiration precautions Continue antibiotics Follow up cultures Bronchodilators Accu-Cheks, ISS prn. Monitor renal function HD as per nephrology Management deferred Monitor electrolytes. Supplement as needed Maintain euvolemia DVT prophylaxis crit care time 35 min Dietary Evaluation Review Comments: 1) Initiate Nephro-Tayla @ 1 tb qd 2) If patient remains NPO > 7 days, consider EN/TPN to meet at least 75% of estimated daily needs 3) If GI route is preferred, consider Nepro CarbSteady @ 40 mL/hr goal rate as tolerated. EN regimen will provide 2222 kcals (including Propofol), 78g Pro, and 715 mL free H2O per 24 hrs. Goal rate will meet ~ 98% estimated daily energy needs and ~ 72% estimated daily protein needs 4) Advance to renal cardiac diet when medically feasible, pending ST approval 5) Follow-up with cardiology, pulmonology, and nephrology 6) Continue to monitor I&O, labs, and skin integrity Expected Outcomes/Goals: 1) patient to receive nutrition support within 7 days of NPO status 2) GI symptoms and labs to improve 3) diet to advance 4) f/u in 2-3 days Plan discussed with: Patient GERMÁN TORRES MD Mar 14, 2025 15:12
--- NOTE | 2025-03-14 15:15 | DVHPN2 ---
Assessment/Plan Assessment/Plan ICU note 54 M with resistant HTN (with noted allergies but reported making him feel "very sick", no anaphylaxis hx), CKD4, carotid artery stenosis s/p stenting, TIAs, thyroid disease. intubated for acute hypoxic RF 2/2 pulm edema. currently on HD. clean coronaries in 2022. prior plan for BAT and renal denervations. seen today. extubated, pass bedside swallow, will keep NPO except meds. physical exam intubated, sedated on mech vent PERLLA moving to pain s1 s2 rrr mechanical breath sounds abdomen soft trace le edema labs ekg imaging reviewed assessment and plan acute hypoxic RF req mech vent aspiration PNA gp vs gn CHANDRA ATN on CKD on HD HTN emergency pulmonary edema type 2 RI demand ischemia and decreased renal clearance GPC bacteremia c/w mech vent daily SAT SBT maintain sbp <150, c/w nicardipine HD per renal, bumex per renal c/w vanc Zosyn start nepro start oral anti htn (will have to use alternatives for allergies?) now on prazosin, clonidine, coreg, amlodipine and minoxidil dc hydrocortisone art duplex prohlorperazine for nausea diet npo except meds dvt ppx heprain gi ppx pepcid condition critical prognosis poor critical care time 35 minutes Plan discussed with: Patient, Spouse My Orders Orders - DION ROSA MD Procedure Category Date Status Time Abg W/ Co-Ox RT 03/13/25 Logged 15:16 Extubate CEDRIC 03/13/25 In Process 15:56 Oxygen Via Cool Mist RT 03/13/25 Transmitted Mask 15:57 Insert Midline ORDERS 03/13/25 Transmitted 16:04 Chest Percussion Tx RT 03/13/25 Logged Initi 16:32 Nicardipine Hcl In PHA 03/13/25 In Process Sodium Chlo (Cardene 16:45 * Swallow Request ST 03/13/25 Transmitted 19:19 Hydromorphone PHA 03/14/25 In Process Injection (Dilaudid 11:00 Prochlorperazine Inj PHA 03/14/25 In Process (Compazine Inj) 12:45 Date of Service: Mar 14, 2025 Billing Provider: DION ROSA MD Common Visit Codes: [id number] CARE 30-74 MIN DION ROSA MD Mar 14, 2025 15:14
--- NOTE | 2025-03-14 15:25 | DVHPN2 ---
Progress Note - Dictate Date Seen: Mar 14, 2025 Has the PT tested + for MRSA If YES, has PT been informed?: No Medical Necessity Reason Pt with a Central, PICC or Fol: Yes The following are medically ne: Noriega Catheter Reason for noriega catheter: Strict I&O Subjective Patient was extubated yesterday and could not take his antihypertensive meds for several hours due to not able to swallow. This morning he took his antihypertensive meds. Some minimal bleed this morning through exit site CVC vital signs Vital Sign Date Time Temp Pulse Resp B/P (MAP) Pulse Ox O2 Delivery O2 Flow Rate FiO2 03/14/25 14:18 163/88 03/14/25 14:15 135 15 96 03/14/25 14:00 Nasal Cannula* 2 28 03/14/25 12:00 98.4 98.4 Total Intake and Output 03/13/25 03/13/25 03/14/25 15:00 23:00 07:00 Intake Total 85.62 ml 226.83 ml 100 ml Output Total 25 ml 20 ml Balance 85.62 ml 201.83 ml 80 ml medications Current Medications Medications Dose Ordered Sig/Shayan Route Start Time Stop Time Status Last Admin Dose Admin Aspirin 81 mg DAILY PO 02/22/25 10:00 03/13/25 13:55 81 MG Levothyroxine Sodium 50 mcg QAM@0600 PO 02/22/25 06:00 03/13/25 06:20 50 MCG Sodium Chloride 10 ml Q8HR IV 02/22/25 06:00 03/14/25 13:15 10 ML Ipratropium [place] 0.5 mg Q4HR NEB 02/26/25 14:00 03/14/25 13:03 0.5 MG Heparin Sodium (Porcine) 5,000 units Q12HR SC 02/27/25 22:00 03/14/25 08:46 5,000 UNITS Dextrose 50 ml UD PRN IV 02/27/25 11:45 Enteral Nutritional Formula 1,000 ml 30ML/HR GT 03/03/25 09:30 03/03/25 14:56 1,000 ML Sennosides 8.6 mg HS PO 03/03/25 22:00 03/08/25 21:31 8.6 MG Polyethylene Glycol 17 gm DAILY PO 03/03/25 18:40 03/12/25 11:42 17 GM Clonidine HCl 0.2 mg Q8HR PO 03/04/25 14:00 03/14/25 13:15 0.2 MG Prazosin HCl 1 mg Q12HR PO 03/05/25 22:00 03/13/25 13:56 1 MG Famotidine 10 mg EOD IV 03/08/25 10:00 03/14/25 08:45 10 MG Doxycycline Hyclate 100 ml @ 50 mls/hr Q12H IV 03/07/25 00:00 03/14/25 11:39 50 MLS/HR Amlodipine Besylate 10 mg DAILY PO 03/08/25 10:00 03/13/25 09:28 10 MG Carvedilol 25 mg Q12HR PO 03/12/25 10:00 03/13/25 09:28 25 MG Minoxidil 5 mg Q12HR PO 03/12/25 22:00 03/13/25 13:55 5 MG Clonazepam 1 mg Q12HP PRN PO 03/13/25 09:15 Nicardipine/ Sodium Chloride 200 ml @ 50 mls/hr Q4H IV 03/13/25 16:45 Hydromorphone HCl 0.25 mg Q3HPRN PRN IV 03/14/25 11:00 Prochlorperazine Edisylate 5 mg Q4HPRN PRN IV 03/14/25 12:45 objective HEENT: Oral mucosa moist Pulmonary: Lungs diminished on auscultation bilaterally Cardiovascular S1-S2, no S3 or S4 Abdomen: Bowel sounds positive, soft no rebound tenderness Skin: No rash Neurological: Alert and oriented Extremities: Trace edema CVC right upper chest minimal evidence of recent bleed no active bleed laboratory and microbiology Laboratory Tests 03/14/25 03:30 Test 03/14/25 03:30 Range/Units Serum Glucose 93 74-106 mg/dL Assessment/Plan Assessment Hemodialysis dependent Severe CHANDRA secondary to hypertensive crisis and end organ damage Anuric CKD stage 4 is his baseline, likely progression to Chronic kidney disease five HTN emergency, patient has historically refused oral anti hypertensives due to multiple "allergies" and side effects Endorsed poor tolerance to multiple antihypertensive meds Multiple cardiology and neph[place] [facility] [facility], etc have not helped him because he "cannot take any anti hypertensives orally" He was offered nephrectomy and HD at [facility] recently but declined He was sent for renal denervation and or osmar-receptor stimulation therapy but he could not get access to this Acute hypoxic respiratory failure on supplemental oxygen Pneumonia Bacteremia gram positive cocci elevated troponin, r/o NSTEMI h/o carotid artery stenosis s/p stent h/o TIA Hypothyroidism PTSD Assessment/Plan: Hemodialysis Sunday. Last dialysis today 2.5 L removed Resume antihypertensive meds including carvedilol, amlodipine, minoxidil, prazosin, clonidine p.o.. He is tolerating well with no evidence of allergic reaction whatsoever. banking management consulting manager to arrange chair time Patient tolerating well current antihypertensive regimen If hypertension becomes an issue despite current regimen we will add clonidine patch weekly if needed On prazosin No evidence of renal recovery. Notify surgeon about CVC bleeding issue. Hold heparin p.m. Plan of care discussed with the bedside Plan of care from Nephrology standpoint discussed with the at bedside in addition to the hospitalist today Dietary Evaluation Review Comments: 1) Initiate Nephro-Tayla @ 1 tb qd 2) If patient remains NPO > 7 days, consider EN/TPN to meet at least 75% of estimated daily needs 3) If GI route is preferred, consider Nepro CarbSteady @ 40 mL/hr goal rate as tolerated. EN regimen will provide 2222 kcals (including Propofol), 78g Pro, and 715 mL free H2O per 24 hrs. Goal rate will meet ~ 98% estimated daily energy needs and ~ 72% estimated daily protein needs 4) Advance to renal cardiac diet when medically feasible, pending ST approval 5) Follow-up with cardiology, pulmonology, and nephrology 6) Continue to monitor I&O, labs, and skin integrity Expected Outcomes/Goals: 1) patient to receive nutrition support within 7 days of NPO status 2) GI symptoms and labs to improve 3) diet to advance 4) f/u in 2-3 days Plan discussed with: Patient BETI ALEXANDER MD Mar 14, 2025 15:25
[2025-03-14] MEDS: HYDROmorphone HCL 2 MG/ML VL/or syr IV PRN (17:48)
[2025-03-15] VITALS (107 sets, daily range): BP systolic 98–159; BP diastolic 50–113; PULSE 107–130; RESP 8–21; TEMP 97.9–98.8; O2SAT 91–100
[2025-03-15 04:20] LABS: Hematocrit 23.6 % (41.0-53.0); Hemoglobin 8.4 g/dL (13.5-17.5); Mean Corpuscular Hemoglobin 32.3 pg (28.0-32.0); Mean Corpuscular Volume 91.1 fL (80.0-100.0); Nucleated Red Blood Cells % 0.1 %
[2025-03-15 04:24] LABS: Chloride 101 mmol/L (98-107); Potassium 3.5 mmol/L (3.5-5.1); Sodium 140 mmol/L (136-145)
[2025-03-15 04:25] LABS: Anion Gap 16 (5-15); Calcium 9.0 mg/dL (8.7-10.4); Carbon Dioxide 23 mmol/L (20-31)
[2025-03-15 04:30] LABS: BUN/Creatinine Ratio 7.2 (10.0-20.0); Glucose 99 mg/dL (74-106)
[2025-03-15 04:32] LABS: Blood Urea Nitrogen 43 mg/dL (9-23)
--- NOTE | 2025-03-15 10:20 | DVHPN2 ---
Assessment/Plan Assessment/Plan ICU note 54 M with resistant HTN (with noted allergies but reported making him feel "very sick", no anaphylaxis hx), CKD4, carotid artery stenosis s/p stenting, TIAs, thyroid disease. intubated for acute hypoxic RF 2/2 pulm edema. currently on HD. clean coronaries in 2022. prior plan for BAT and renal denervations. seen today. answering questions intermitently. able to take po meds. will attempt apple sauce. patient refused to follow command from speech therapist. physical exam on NC intermittently uncooperative, however alert, protecting airway, able to take med s PERLLA s1 s2 rrr clear breath sounds abdomen soft trace le edema labs ekg imaging reviewed assessment and plan acute hypoxic RF req mech vent aspiration PNA gp vs gn CHANDRA ATN on CKD on HD HTN emergency pulmonary edema type 2 [place] demand ischemia and decreased renal clearance GPC bacteremia metabolic encephalopathy? c/w mech vent daily SAT SBT maintain sbp <150, c/w nicardipine HD per renal, bumex per renal c/w vanc Zosyn start nepro start oral anti htn (will have to use alternatives for allergies?) now on prazosin, clonidine, coreg, amlodipine and minoxidil dc hydrocortisone art duplex prohlorperazine for nausea reinforce oral feeding diet npo except meds dvt ppx heprain gi ppx pepcid condition critical prognosis poor critical care time 35 minutes Plan discussed with: Patient My Orders Orders - DION ROSA MD Procedure Category Date Status Time Hydromorphone PHA 03/14/25 In Process Injection (Dilaudid 11:00 Prochlorperazine Inj PHA 03/14/25 In Process (Compazine Inj) 12:45 Date of Service: Mar 15, 2025 Billing Provider: DION ROSA MD Common Visit Codes: [id number] CARE 30-74 MIN DION ROSA MD Mar 15, 2025 10:20
[2025-03-15] MEDS: PROCHLORPERAZINE EDISYLATE 5 MG/ML 2ML VIAL IV PRN (11:28)
--- NOTE | 2025-03-15 15:12 | DVHPN2 ---
Progress Note - Dictate Date Seen: Mar 15, 2025 Has the PT tested + for MRSA If YES, has PT been informed?: No Medical Necessity Reason Pt with a Central, PICC or Fol: Yes The following are medically ne: Noirega Catheter Reason for noriega catheter: Strict I&O Subjective The patient was extubated Sunday. Tolerating well. Taking small sips of water. Complains of generalized weakness. Urinary output minimal per shift 50-100 mL. vital signs Vital Sign Date Time Temp Pulse Resp B/P (MAP) Pulse Ox O2 Delivery O2 Flow Rate FiO2 03/15/25 14:45 131/75 03/15/25 14:00 14 93 Room Air* 0 21 03/15/25 14:00 124 03/15/25 12:00 98.8 98.8 Total Intake and Output 03/14/25 03/14/25 03/15/25 15:00 23:00 07:00 Intake Total 100 ml 20 ml 120 ml Output Total 30 ml 20 ml Balance 100 ml -10 ml 100 ml medications Current Medications Medications Dose Ordered Sig/Shayan Route Start Time Stop Time Status Last Admin Dose Admin Aspirin 81 mg DAILY PO 02/22/25 10:00 03/15/25 09:06 81 MG Levothyroxine Sodium 50 mcg QAM@0600 PO 02/22/25 06:00 03/15/25 05:35 50 MCG Sodium Chloride 10 ml Q8HR IV 02/22/25 06:00 03/15/25 11:38 10 ML Ipratropium [place] 0.5 mg Q4HR NEB 02/26/25 14:00 03/15/25 10:10 0.5 MG Heparin Sodium (Porcine) 5,000 units Q12HR SC 02/27/25 22:00 03/15/25 09:12 5,000 UNITS Dextrose 50 ml UD PRN IV 02/27/25 11:45 Enteral Nutritional Formula 1,000 ml 30ML/HR GT 03/03/25 09:30 03/03/25 14:56 1,000 ML Sennosides 8.6 mg HS PO 03/03/25 22:00 03/08/25 21:31 8.6 MG Polyethylene Glycol 17 gm DAILY PO 03/03/25 18:40 03/12/25 11:42 17 GM Clonidine HCl 0.2 mg Q8HR PO 03/04/25 14:00 03/15/25 13:18 0.2 MG Prazosin HCl 1 mg Q12HR PO 03/05/25 22:00 03/15/25 09:04 1 MG Famotidine 10 mg EOD IV 03/08/25 10:00 03/14/25 08:45 10 MG Doxycycline Hyclate 100 ml @ 50 mls/hr Q12H IV 03/07/25 00:00 03/15/25 11:35 50 MLS/HR Amlodipine Besylate 10 mg DAILY PO 03/08/25 10:00 03/15/25 09:05 10 MG Carvedilol 25 mg Q12HR PO 03/12/25 10:00 03/15/25 09:04 25 MG Minoxidil 5 mg Q12HR PO 03/12/25 22:00 03/15/25 09:02 5 MG Clonazepam 1 mg Q12HP PRN PO 03/13/25 09:15 Nicardipine/ Sodium Chloride 200 ml @ 50 mls/hr Q4H IV 03/13/25 16:45 Hydromorphone HCl 0.25 mg Q3HPRN PRN IV 03/14/25 11:00 03/14/25 23:34 0.25 MG Prochlorperazine Edisylate 5 mg Q4HPRN PRN IV 03/14/25 12:45 03/15/25 11:28 5 MG objective HEENT: Oral mucosa moist Pulmonary: Lungs diminished on auscultation bilaterally Cardiovascular S1-S2, no S3 or S4 Abdomen: Bowel sounds positive, soft no rebound tenderness Skin: No rash Neurological: Alert and oriented Extremities: Trace edema Noriega catheter in place. CVC right upper chest minimal evidence of recent bleed no active bleed laboratory and microbiology Laboratory Tests 03/15/25 03:17 Test 03/15/25 03:17 Range/Units Serum Glucose 99 74-106 mg/dL Assessment/Plan Assessment Hemodialysis dependent Severe CHANDRA secondary to hypertensive crisis and end organ damage Basically anuric CKD stage 4 is his baseline, likely progression to Chronic kidney disease five HTN emergency, patient has historically refused oral anti hypertensives due to multiple "allergies" and side effects Endorsed previous poor tolerance to multiple antihypertensive meds Multiple cardiology and nephrology evaluations at [facility], [facility], etc have not helped him because he "cannot take any anti hypertensives orally" He was offered nephrectomy and HD at [facility] recently but declined He was sent for renal denervation and or osmar-receptor stimulation therapy but he could not get access to this Acute hypoxic respiratory failure on supplemental oxygen Pneumonia Bacteremia gram positive cocci elevated troponin, r/o NSTEMI h/o carotid artery stenosis s/p stent h/o TIA Hypothyroidism PTSD Assessment/Plan: Hemodialysis Sunday. Remove Noriega catheter, place condom catheter Resume antihypertensive meds including carvedilol, amlodipine, minoxidil, prazosin, clonidine p.o.. He is tolerating well with no evidence of allergic reaction whatsoever. 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 IR to revise tunneled line, oozing of blood seems to have resolved Plan of care discussed with patient and the bedside Plan of care from Nephrology standpoint discussed with the at bedside in addition to the hospitalist today Dietary Evaluation Review Comments: 1) Initiate Nephro-Tayla @ 1 tb qd 2) If patient remains NPO > 7 days, consider EN/TPN to meet at least 75% of estimated daily needs 3) If GI route is preferred, consider Nepro CarbSteady @ 40 mL/hr goal rate as tolerated. EN regimen will provide 2222 kcals (including Propofol), 78g Pro, and 715 mL free H2O per 24 hrs. Goal rate will meet ~ 98% estimated daily energy needs and ~ 72% estimated daily protein needs 4) Advance to renal cardiac diet when medically feasible, pending ST approval 5) Follow-up with cardiology, pulmonology, and nephrology 6) Continue to monitor I&O, labs, and skin integrity Expected Outcomes/Goals: 1) patient to receive nutrition support within 7 days of NPO status 2) GI symptoms and labs to improve 3) diet to advance 4) f/u in 2-3 days Plan discussed with: Patient, Spouse BETI ALEXANDER MD Mar 15, 2025 15:12
--- NOTE | 2025-03-15 15:27 | DVHPN2 ---
Progress Note - Dictate Date Seen: Mar 15, 2025 Has the PT tested + for MRSA If YES, has PT been informed?: No Medical Necessity Reason Pt with a Central, PICC or Fol: Yes The following are medically ne: Noriega Catheter Reason for noriega catheter: Strict I&O vital signs Vital Sign Date Time Temp Pulse Resp B/P (MAP) Pulse Ox O2 Delivery O2 Flow Rate FiO2 03/15/25 14:45 131/75 03/15/25 14:00 14 93 Room Air* 0 21 03/15/25 14:00 124 03/15/25 12:00 98.8 98.8 Total Intake and Output 03/14/25 03/14/25 03/15/25 15:00 23:00 07:00 Intake Total 100 ml 20 ml 120 ml Output Total 30 ml 20 ml Balance 100 ml -10 ml 100 ml medications Current Medications Medications Dose Ordered Sig/Shayan Route Start Time Stop Time Status Last Admin Dose Admin Aspirin 81 mg DAILY PO 02/22/25 10:00 03/15/25 09:06 81 MG Levothyroxine Sodium 50 mcg QAM@0600 PO 02/22/25 06:00 03/15/25 05:35 50 MCG Sodium Chloride 10 ml Q8HR IV 02/22/25 06:00 03/15/25 11:38 10 ML Ipratropium [place] 0.5 mg Q4HR NEB 02/26/25 14:00 03/15/25 10:10 0.5 MG Heparin Sodium (Porcine) 5,000 units Q12HR SC 02/27/25 22:00 03/15/25 09:12 5,000 UNITS Dextrose 50 ml UD PRN IV 02/27/25 11:45 Enteral Nutritional Formula 1,000 ml 30ML/HR GT 03/03/25 09:30 03/03/25 14:56 1,000 ML Sennosides 8.6 mg HS PO 03/03/25 22:00 03/08/25 21:31 8.6 MG Polyethylene Glycol 17 gm DAILY PO 03/03/25 18:40 03/12/25 11:42 17 GM Clonidine HCl 0.2 mg Q8HR PO 03/04/25 14:00 03/15/25 13:18 0.2 MG Prazosin HCl 1 mg Q12HR PO 03/05/25 22:00 03/15/25 09:04 1 MG Famotidine 10 mg EOD IV 03/08/25 10:00 03/14/25 08:45 10 MG Doxycycline Hyclate 100 ml @ 50 mls/hr Q12H IV 03/07/25 00:00 03/15/25 11:35 50 MLS/HR Amlodipine Besylate 10 mg DAILY PO 03/08/25 10:00 03/15/25 09:05 10 MG Carvedilol 25 mg Q12HR PO 03/12/25 10:00 03/15/25 09:04 25 MG Minoxidil 5 mg Q12HR PO 03/12/25 22:00 03/15/25 09:02 5 MG Clonazepam 1 mg Q12HP PRN PO 03/13/25 09:15 Nicardipine/ Sodium Chloride 200 ml @ 50 mls/hr Q4H IV 03/13/25 16:45 Hydromorphone HCl 0.25 mg Q3HPRN PRN IV 03/14/25 11:00 03/14/25 23:34 0.25 MG Prochlorperazine Edisylate 5 mg Q4HPRN PRN IV 03/14/25 12:45 03/15/25 11:28 5 MG laboratory and microbiology Laboratory Tests 03/15/25 03:17 Test 03/15/25 03:17 Range/Units Serum Glucose 99 74-106 mg/dL Assessment/Plan Acute hypoxemic respiratory failure On mechanical ventilator Fluid overload Pneumonia Atelectasis Pulmonary edema Anemia ESRD, on hemodialysis Events: Status post extubation Low oxygen requirements On room air No acute events Labs and imaging reviewed Plan: Supplemental oxygen as needed Titrate FIO2 to keep O2 saturation above 90%. Incentive spirometry Aspiration precautions Continue antibiotics Follow up cultures Bronchodilators Accu-Cheks, ISS prn. Monitor renal function HD as per nephrology Management deferred Monitor electrolytes. Supplement as needed Maintain euvolemia Okay to downgrade from pulmonary standpoint DVT prophylaxis crit care time 35 min Dietary Evaluation Review Comments: 1) Initiate Nephro-Tayla @ 1 tb qd 2) If patient remains NPO > 7 days, consider EN/TPN to meet at least 75% of estimated daily needs 3) If GI route is preferred, consider Nepro CarbSteady @ 40 mL/hr goal rate as tolerated. EN regimen will provide 2222 kcals (including Propofol), 78g Pro, and 715 mL free H2O per 24 hrs. Goal rate will meet ~ 98% estimated daily energy needs and ~ 72% estimated daily protein needs 4) Advance to renal cardiac diet when medically feasible, pending ST approval 5) Follow-up with cardiology, pulmonology, and nephrology 6) Continue to monitor I&O, labs, and skin integrity Expected Outcomes/Goals: 1) patient to receive nutrition support within 7 days of NPO status 2) GI symptoms and labs to improve 3) diet to advance 4) f/u in 2-3 days Plan discussed with: Patient GERMÁN TORRES MD Mar 15, 2025 15:27
[2025-03-16] VITALS (96 sets, daily range): BP systolic 97–159; BP diastolic 52–95; PULSE 98–131; RESP 8–20; TEMP 97.5–98.8; O2SAT 91–100
[2025-03-16 04:21] LABS: Hematocrit 21.7 % (41.0-53.0); Hemoglobin 7.7 g/dL (13.5-17.5); Mean Corpuscular Hemoglobin 31.9 pg (28.0-32.0); Mean Corpuscular Volume 90.1 fL (80.0-100.0); Nucleated Red Blood Cells % 0.1 %
[2025-03-16 04:32] LABS: Albumin 3.2 g/dL (3.2-4.8); Alkaline Phosphatase 96 U/L (46-116); Anion Gap 20 (5-15); BUN/Creatinine Ratio 9.7 (10.0-20.0); Carbon Dioxide 21 mmol/L (20-31); Chloride 99 mmol/L (98-107); Glucose 97 mg/dL (74-106); Potassium 3.7 mmol/L (3.5-5.1); Sodium 140 mmol/L (136-145)
[2025-03-16 04:36] LABS: Alanine Aminotransferase 102 U/L (7-40); Bilirubin, Total 0.2 mg/dL (0.2-1.0); Blood Urea Nitrogen 71 mg/dL (9-23); Calcium 8.7 mg/dL (8.7-10.4); Total Protein 5.2 g/dL (5.7-8.2)
[2025-03-16] MEDS: SODIUM CHL 0.9% 1000 ML BAG XX ONE (07:15)
--- NOTE | 2025-03-16 10:55 | DVHPN2 ---
Progress Note - Dictate Date Seen: Mar 16, 2025 Has the PT tested + for MRSA If YES, has PT been informed?: No Medical Necessity Reason Pt with a Central, PICC or Fol: Yes The following are medically ne: Noriega Catheter Reason for noriega catheter: Strict I&O vital signs Vital Sign Date Time Temp Pulse Resp B/P (MAP) Pulse Ox O2 Delivery O2 Flow Rate FiO2 03/16/25 10:15 122 11 126/75 (92) 95 03/16/25 10:00 Room Air* 0 21 03/16/25 08:00 97.5 97.5 Total Intake and Output 03/15/25 03/15/25 03/16/25 15:00 23:00 07:00 Intake Total 100 ml 240 ml 100 ml Output Total 30 ml 30 ml Balance 100 ml 210 ml 70 ml medications Current Medications Medications Dose Ordered Sig/Shayan Route Start Time Stop Time Status Last Admin Dose Admin Aspirin 81 mg DAILY PO 02/22/25 10:00 03/16/25 09:36 81 MG Levothyroxine Sodium 50 mcg QAM@0600 PO 02/22/25 06:00 03/16/25 06:12 50 MCG Sodium Chloride 10 ml Q8HR IV 02/22/25 06:00 03/16/25 06:12 10 ML Ipratropium [place] 0.5 mg Q4HR NEB 02/26/25 14:00 03/16/25 09:56 0.5 MG Heparin Sodium (Porcine) 5,000 units Q12HR SC 02/27/25 22:00 03/16/25 09:39 5,000 UNITS Dextrose 50 ml UD PRN IV 02/27/25 11:45 Enteral Nutritional Formula 1,000 ml 30ML/HR GT 03/03/25 09:30 03/03/25 14:56 1,000 ML Sennosides 8.6 mg HS PO 03/03/25 22:00 03/15/25 22:31 8.6 MG Polyethylene Glycol 17 gm DAILY PO 03/03/25 18:40 03/12/25 11:42 17 GM Clonidine HCl 0.2 mg Q8HR PO 03/04/25 14:00 03/16/25 06:12 0.2 MG Prazosin HCl 1 mg Q12HR PO 03/05/25 22:00 03/16/25 09:36 1 MG Famotidine 10 mg EOD IV 03/08/25 10:00 03/16/25 09:33 10 MG Doxycycline Hyclate 100 ml @ 50 mls/hr Q12H IV 03/07/25 00:00 03/16/25 00:00 50 MLS/HR Amlodipine Besylate 10 mg DAILY PO 03/08/25 10:00 03/16/25 09:37 10 MG Carvedilol 25 mg Q12HR PO 03/12/25 10:00 03/16/25 09:36 25 MG Minoxidil 5 mg Q12HR PO 03/12/25 22:00 03/16/25 09:35 5 MG Clonazepam 1 mg Q12HP PRN PO 03/13/25 09:15 Nicardipine/ Sodium Chloride 200 ml @ 50 mls/hr Q4H IV 03/13/25 16:45 Hydromorphone HCl 0.25 mg Q3HPRN PRN IV 03/14/25 11:00 03/14/25 23:34 0.25 MG Prochlorperazine Edisylate 5 mg Q4HPRN PRN IV 03/14/25 12:45 03/15/25 11:28 5 MG laboratory and microbiology Laboratory Tests 03/16/25 03:18 Test 03/16/25 03:18 Range/Units Serum Glucose 97 74-106 mg/dL Assessment/Plan Acute hypoxemic respiratory failure On mechanical ventilator Fluid overload Pneumonia Atelectasis Pulmonary edema Anemia ESRD, on hemodialysis Events: Status post extubation Low oxygen requirements On room air No acute events deconditioned will require aggressive PT Labs and imaging reviewed Plan: Supplemental oxygen as needed Titrate FIO2 to keep O2 saturation above 90%. Incentive spirometry Aspiration precautions Continue antibiotics Follow up cultures Bronchodilators Accu-Cheks, ISS prn. Monitor renal function HD as per nephrology Management deferred Monitor electrolytes. Supplement as needed Maintain euvolemia Okay to downgrade from pulmonary standpoint DVT prophylaxis crit care time 35 min Dietary Evaluation Review Comments: 1) Initiate Nephro-Tayla @ 1 tb qd 2) If patient remains NPO > 7 days, consider EN/TPN to meet at least 75% of estimated daily needs 3) If GI route is preferred, consider Nepro CarbSteady @ 40 mL/hr goal rate as tolerated. EN regimen will provide 2222 kcals (including Propofol), 78g Pro, and 715 mL free H2O per 24 hrs. Goal rate will meet ~ 98% estimated daily energy needs and ~ 72% estimated daily protein needs 4) Advance to renal cardiac diet when medically feasible, pending ST approval 5) Follow-up with cardiology, pulmonology, and nephrology 6) Continue to monitor I&O, labs, and skin integrity Expected Outcomes/Goals: 1) patient to receive nutrition support within 7 days of NPO status 2) GI symptoms and labs to improve 3) diet to advance 4) f/u in 2-3 days Plan discussed with: Spouse GERMÁN TORRES MD Mar 16, 2025 10:55
--- NOTE | 2025-03-16 11:52 | DVHPN2 ---
Progress Note - Dictate Date Seen: Mar 16, 2025 Has the PT tested + for MRSA If YES, has PT been informed?: No Medical Necessity Reason Pt with a Central, PICC or Fol: Yes The following are medically ne: Noriega Catheter Reason for noriega catheter: Strict I&O Subjective Mr. Mercado is a 54 years old right-handed gentleman with a history of hypertension, hypothyroidism, chronic kidney failure, systemic inflammatory response syndrome, TIA, stroke with left-sided residual weakness, seizure, brain aneurysm, PTSD, a long list of drug allergy, he came to the [facility] on 02/21/2025 with a chief complaint of chest pain, but his hospital stay was complicated with elevated troponin I/heart attack, respiratory failure and he was intubated in the evening on 02/25/2025, with appropriate treatment, the patient is stabilized and improving, but is not waking up as expected. I saw him in 07/2013 for headache, 08/05/15 for intractable headache, possible TIA, 12/17/2017 for stroke I have seen and examined the patient, talked to his nurse and has a nursing staff, in the room. He is extubated, awake, responsive to verbal stimuli, and he is oriented, possibly, to person and place He can not talk at this time Urinalysis, 02/26/2025: WBC: 4, urine leukocyte esterase: Negative ABG, 02/25/2025: Metabolic acidosis, 02/26/2025: Hypoxia, metabolic acidosis CBC, 02/21/2025, 10.7/13.1/154/83.9, 03/08/2025: 9.6/8.7/260/87.4 BUN/CR, 03/08/2025: 52/5.15 GFR, 03/08/2020 5:13 a.m. Troponin one high sensitivity, 02/22/2025: 541, 1173, 2396, 4495, 5273 TBI/AST/ALT/AP, 03/08/2025: 0.3/637/200/211 TG/HDL/LDL/HDL, 02/22/2025: 249/177/96/30 Chest x-ray, 02/25/2025: 1. Endotracheal tube in place 6.4 cm above the ivan 2. Enteric tube below the diaphragm in the stomach. 3. Cardiopulmonary findings most likely secondary to congestive failure Chest x-ray, 03/08/2025: No significant change from the previous study. Stable support devices. Unchanged endotracheal tube, enteric tube, and right IJ catheter. CT head, 02/21/2025: 1. No acute intracranial abnormality. 2. Old lacunar infarct external capsule right basal ganglia CT head, 12/18/2017: Normal noncontrast MRA of the head CT head, 03/08/2025: No acute intracranial abnormality vital signs Vital Sign Date Time Temp Pulse Resp B/P (MAP) Pulse Ox O2 Delivery O2 Flow Rate FiO2 03/16/25 11:18 65 116/65 03/16/25 10:15 11 95 03/16/25 10:00 Room Air* 0 21 03/16/25 08:00 97.5 97.5 Total Intake and Output 03/15/25 03/15/25 03/16/25 15:00 23:00 07:00 Intake Total 100 ml 240 ml 100 ml Output Total 30 ml 30 ml Balance 100 ml 210 ml 70 ml medications Current Medications Medications Dose Ordered Sig/Shayan Route Start Time Stop Time Status Last Admin Dose Admin Aspirin 81 mg DAILY PO 02/22/25 10:00 03/16/25 09:36 81 MG Levothyroxine Sodium 50 mcg QAM@0600 PO 02/22/25 06:00 03/16/25 06:12 50 MCG Sodium Chloride 10 ml Q8HR IV 02/22/25 06:00 03/16/25 11:19 10 ML Ipratropium [place] 0.5 mg Q4HR NEB 02/26/25 14:00 03/16/25 09:56 0.5 MG Heparin Sodium (Porcine) 5,000 units Q12HR SC 02/27/25 22:00 03/16/25 09:39 5,000 UNITS Dextrose 50 ml UD PRN IV 02/27/25 11:45 Enteral Nutritional Formula 1,000 ml 30ML/HR GT 03/03/25 09:30 03/03/25 14:56 1,000 ML Sennosides 8.6 mg HS PO 03/03/25 22:00 03/15/25 22:31 8.6 MG Polyethylene Glycol 17 gm DAILY PO 03/03/25 18:40 03/12/25 11:42 17 GM Clonidine HCl 0.2 mg Q8HR PO 03/04/25 14:00 03/16/25 06:12 0.2 MG Prazosin HCl 1 mg Q12HR PO 03/05/25 22:00 03/16/25 09:36 1 MG Famotidine 10 mg EOD IV 03/08/25 10:00 03/16/25 09:33 10 MG Doxycycline Hyclate 100 ml @ 50 mls/hr Q12H IV 03/07/25 00:00 03/16/25 00:00 50 MLS/HR Amlodipine Besylate 10 mg DAILY PO 03/08/25 10:00 03/16/25 09:37 10 MG Carvedilol 25 mg Q12HR PO 03/12/25 10:00 03/16/25 09:36 25 MG Minoxidil 5 mg Q12HR PO 03/12/25 22:00 03/16/25 09:35 5 MG Clonazepam 1 mg Q12HP PRN PO 03/13/25 09:15 Nicardipine/ Sodium Chloride 200 ml @ 50 mls/hr Q4H IV 03/13/25 16:45 Hydromorphone HCl 0.25 mg Q3HPRN PRN IV 03/14/25 11:00 03/14/25 23:34 0.25 MG Prochlorperazine Edisylate 5 mg Q4HPRN PRN IV 03/14/25 12:45 03/15/25 11:28 5 MG objective General: the patient is well developed and nourished. No acute distress. MENTAL STATUS: Subjective SPEECH, LANGUAGE, HIGHER CORTICAL FUNCTION: Subjective CRANIAL NERVES: Pupils are equal, round and reactive. There is conjugated rolling eye movement. Facial sensation intact in all three divisions bilaterally. Mandibular strength intact. Facial muscles symmetrical and strength intact. SENSATION: Okay to painful stimuli MOTOR: Normal tone in the upper and lower extremity. Normal muscle bulk. No fasciculations. No abnormal movements or posturing. He moves the arms and legs REFLEXES: Deep tendon reflexes normal and symmetrical. No pathological reflexes. CEREBELLAR/COORDINATION: Deferred GAIT: Deferred laboratory and microbiology Laboratory Tests 03/16/25 03:18 Test 03/16/25 03:18 Range/Units Serum Glucose 97 74-106 mg/dL Problem List Altered mental status, improving Metabolic encephalopathy Hypoxic encephalopathy Toxic encephalopathy Acute respiratory failure, status post intubation Elevated troponin one/heart attack Acute kidney failure on hemodialysis Elevated stiff function tests Multiple strokes/TIA with residual left-sided weakness Polyneuropathy Assessment/Plan Monitoring Supportive treatment ICU care Stabilize vitals Respiratory support Oxygen IV antibiotics Aspirin 81 mg daily GI prophylaxis/famotidine DVT prophylaxis Oxygen Antibiotics Nephrology on case/Hemodialysis Cardiology on case Pulmonology on case More recommendation per clinical course This medical document was created using an electronic medical record system with [employer] dictation system. Although this document has been carefully reviewed, there may still be some phonetic and typographical errors. These areas are purely typographical due to imperfections of the software programs, and do not reflect any compromise in the patient's medical care. Prognosis poor Dietary Evaluation Review Comments: 1) Initiate Nephro-Tayla @ 1 tb qd 2) If patient remains NPO > 7 days, consider EN/TPN to meet at least 75% of estimated daily needs 3) If GI route is preferred, consider Nepro CarbSteady @ 40 mL/hr goal rate as tolerated. EN regimen will provide 2222 kcals (including Propofol), 78g Pro, and 715 mL free H2O per 24 hrs. Goal rate will meet ~ 98% estimated daily energy needs and ~ 72% estimated daily protein needs 4) Advance to renal cardiac diet when medically feasible, pending ST approval 5) Follow-up with cardiology, pulmonology, and nephrology 6) Continue to monitor I&O, labs, and skin integrity Expected Outcomes/Goals: 1) patient to receive nutrition support within 7 days of NPO status 2) GI symptoms and labs to improve 3) diet to advance 4) f/u in 2-3 days Plan discussed with: Spouse, Other ERASMO CHO MD Mar 16, 2025 11:52
--- NOTE | 2025-03-16 14:07 | DVHPN2 ---
Progress Note - Dictate Date Seen: Mar 16, 2025 Has the PT tested + for MRSA If YES, has PT been informed?: No Medical Necessity Reason Pt with a Central, PICC or Fol: Yes The following are medically ne: Noriega Catheter Reason for noriega catheter: Strict I&O Subjective No new complaints vital signs Vital Sign Date Time Temp Pulse Resp B/P (MAP) Pulse Ox O2 Delivery O2 Flow Rate FiO2 03/16/25 13:42 107/59 03/16/25 12:00 114 03/16/25 12:00 18 93 Room Air* 0 21 03/16/25 12:00 98.8 98.8 Total Intake and Output 03/15/25 03/15/25 03/16/25 15:00 23:00 07:00 Intake Total 100 ml 240 ml 100 ml Output Total 30 ml 30 ml Balance 100 ml 210 ml 70 ml medications Current Medications Medications Dose Ordered Sig/Shayan Route Start Time Stop Time Status Last Admin Dose Admin Aspirin 81 mg DAILY PO 02/22/25 10:00 03/16/25 09:36 81 MG Levothyroxine Sodium 50 mcg QAM@0600 PO 02/22/25 06:00 03/16/25 06:12 50 MCG Sodium Chloride 10 ml Q8HR IV 02/22/25 06:00 03/16/25 11:19 10 ML Ipratropium [place] 0.5 mg Q4HR NEB 02/26/25 14:00 03/16/25 09:56 0.5 MG Heparin Sodium (Porcine) 5,000 units Q12HR SC 02/27/25 22:00 03/16/25 09:39 5,000 UNITS Dextrose 50 ml UD PRN IV 02/27/25 11:45 Enteral Nutritional Formula 1,000 ml 30ML/HR GT 03/03/25 09:30 03/03/25 14:56 1,000 ML Sennosides 8.6 mg HS PO 03/03/25 22:00 03/15/25 22:31 8.6 MG Polyethylene Glycol 17 gm DAILY PO 03/03/25 18:40 03/12/25 11:42 17 GM Clonidine HCl 0.2 mg Q8HR PO 03/04/25 14:00 03/16/25 13:42 0.2 MG Prazosin HCl 1 mg Q12HR PO 03/05/25 22:00 03/16/25 09:36 1 MG Famotidine 10 mg EOD IV 03/08/25 10:00 03/16/25 09:33 10 MG Doxycycline Hyclate 100 ml @ 50 mls/hr Q12H IV 03/07/25 00:00 03/16/25 11:59 50 MLS/HR Amlodipine Besylate 10 mg DAILY PO 03/08/25 10:00 03/16/25 09:37 10 MG Carvedilol 25 mg Q12HR PO 03/12/25 10:00 03/16/25 09:36 25 MG Minoxidil 5 mg Q12HR PO 03/12/25 22:00 03/16/25 09:35 5 MG Clonazepam 1 mg Q12HP PRN PO 03/13/25 09:15 Nicardipine/ Sodium Chloride 200 ml @ 50 mls/hr Q4H IV 03/13/25 16:45 Hydromorphone HCl 0.25 mg Q3HPRN PRN IV 03/14/25 11:00 03/14/25 23:34 0.25 MG Prochlorperazine Edisylate 5 mg Q4HPRN PRN IV 03/14/25 12:45 03/15/25 11:28 5 MG objective HEENT: Oral mucosa moist Pulmonary: Lungs diminished on auscultation bilaterally Cardiovascular S1-S2, no S3 or S4 Abdomen: Bowel sounds positive, soft no rebound tenderness Skin: No rash Neurological: Alert and oriented Extremities: Trace edema Noriega catheter in place. CVC right upper chest minimal evidence of recent bleed no active bleed laboratory and microbiology Laboratory Tests 03/16/25 03:18 Test 03/16/25 03:18 Range/Units Serum Glucose 97 74-106 mg/dL Problem List Assessment Hemodialysis dependent Severe CHANDRA secondary to hypertensive crisis and end organ damage CKD stage 4 is his baseline, likely progression to Chronic kidney disease HTN emergency, patient has historically refused oral anti hypertensives due to multiple "allergies" and side effects Endorsed previous poor tolerance to multiple antihypertensive meds Multiple cardiology and nephrology evaluations at [facility], [facility], etc have not helped him because he "cannot take any anti hypertensives orally" He was offered nephrectomy and HD at [facility] recently but declined He was sent for renal denervation and or osmar-receptor stimulation therapy but he could not get access to this Acute hypoxic respiratory failure on supplemental oxygen Pneumonia Bacteremia gram positive cocci elevated troponin, r/o NSTEMI h/o carotid artery stenosis s/p stent h/o TIA Hypothyroidism PTSD Assessment/Plan: Hemodialysis Sunday. Resume antihypertensive meds including carvedilol, amlodipine, minoxidil, prazosin, clonidine p.o.. He is tolerating well with no evidence of allergic reaction whatsoever. 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 EN regimen will provide 2222 kcals (including Propofol), 78g Pro, and 715 mL free H2O per 24 hrs. Goal rate will meet ~ 98% estimated daily energy needs and ~ 72% estimated daily protein needs 4) Advance to renal cardiac diet when medically feasible, pending ST approval 5) Follow-up with cardiology, pulmonology, and nephrology 6) Continue to monitor I&O, labs, and skin integrity Expected Outcomes/Goals: 1) patient to receive nutrition support within 7 days of NPO status 2) GI symptoms and labs to improve 3) diet to advance 4) f/u in 2-3 days Plan discussed with: CLAIRE Arriaza MD Mar 16, 2025 14:07
--- NOTE | 2025-03-16 15:11 | DVHPN2 ---
Assessment/Plan Assessment/Plan ICU note 54 M with resistant HTN (with noted allergies but reported making him feel "very sick", no anaphylaxis hx), CKD4, carotid artery stenosis s/p stenting, TIAs, thyroid disease. intubated for acute hypoxic RF 2/2 pulm edema. currently on HD. clean coronaries in 2022. prior plan for BAT and renal denervations. seen today. more alert, bp stable, off nicardipine. stable to transfer to tele. PT eval physical exam on NC intermittently uncooperative, however alert, protecting airway, able to take meds PERLLA s1 s2 rrr clear breath sounds abdomen soft trace le edema labs ekg imaging reviewed assessment and plan acute hypoxic RF req mech vent aspiration PNA gp vs gn CHANDRA ATN on CKD on HD HTN emergency pulmonary edema type 2 VA demand ischemia and decreased renal clearance GPC bacteremia metabolic encephalopathy? c/w mech vent daily SAT SBT maintain sbp <150, c/w nicardipine HD per renal, bumex per renal c/w vanc Zosyn start nepro start oral anti htn (will have to use alternatives for allergies?) now on prazosin, clonidine, coreg, amlodipine and minoxidil dc hydrocortisone art duplex prohlorperazine for nausea reinforce oral feeding pt eval diet puree diet dvt ppx heprain gi ppx pepcid condition critical prognosis poor Plan discussed with: Patient My Orders Orders - DION ROSA MD Procedure Category Date Status Time Transfer Orders XFER 03/16/25 Transmitted 10:16 Discontinue [place] CEDRIC 03/16/25 In Process Catheter 10:16 Pt Request For Service PT 03/16/25 Logged 10:16 Renal DIET 03/16/25 Transmitted Standard(2gna,3gk,Lopho) Lunch Date of Service: Mar 16, 2025 Billing Provider: DION ROSA MD Common Visit Codes: [id number] INP/OBS CARE(HIGH) DION ROSA MD Mar 16, 2025 15:11
[2025-03-16] MEDS: EPOETIN ALFA-EPBX 10,000 UNIT/1ML VIAL SC ONE (22:09)
[2025-03-17] VITALS (16 sets, daily range): BP systolic 120–138; BP diastolic 64–92; PULSE 108–121; RESP 15–18; TEMP 97.7–99.7; O2SAT 92–100
[2025-03-17 05:36] LABS: Hematocrit 24.7 % (41.0-53.0); Hemoglobin 9.0 g/dL (13.5-17.5); Mean Corpuscular Hemoglobin 32.1 pg (28.0-32.0); Mean Corpuscular Volume 88.4 fL (80.0-100.0); Nucleated Red Blood Cells % 0.1 %
[2025-03-17 05:51] LABS: Anion Gap 18 (5-15); Carbon Dioxide 23 mmol/L (20-31); Potassium 3.8 mmol/L (3.5-5.1); Sodium 139 mmol/L (136-145)
[2025-03-17 05:52] LABS: Calcium 9.0 mg/dL (8.7-10.4)
[2025-03-17 05:53] LABS: Chloride 98 mmol/L (98-107)
[2025-03-17 05:57] LABS: BUN/Creatinine Ratio 7.5 (10.0-20.0); Glucose 102 mg/dL (74-106)
[2025-03-17 06:01] LABS: Blood Urea Nitrogen 49 mg/dL (9-23)
--- NOTE | 2025-03-17 14:04 | DVHPN2 ---
Progress Note - Dictate Date Seen: Mar 17, 2025 Has the PT tested + for MRSA If YES, has PT been informed?: No Medical Necessity Reason Pt with a Central, PICC or Fol: Yes The following are medically ne: Noriega Catheter Reason for noriega catheter: Strict I&O Subjective No new complaints vital signs Vital Sign Date Time Temp Pulse Resp B/P (MAP) Pulse Ox O2 Delivery O2 Flow Rate FiO2 03/17/25 13:41 121/78 03/17/25 10:46 108 03/17/25 10:19 16 03/17/25 09:23 95 03/17/25 09:23 Room Air 0.0 03/17/25 09:23 21 03/17/25 09:00 99.1 99.1 Total Intake and Output 03/16/25 03/16/25 03/17/25 15:00 23:00 07:00 Intake Total 100 ml 240 ml 100 ml Output Total 20 ml Balance 100 ml 220 ml 100 ml medications Current Medications Medications Dose Ordered Sig/Shayan Route Start Time Stop Time Status Last Admin Dose Admin Aspirin 81 mg DAILY PO 02/22/25 10:00 03/17/25 09:47 81 MG Levothyroxine Sodium 50 mcg QAM@0600 PO 02/22/25 06:00 03/17/25 05:27 50 MCG Sodium Chloride 10 ml Q8HR IV 02/22/25 06:00 03/17/25 13:30 10 ML Ipratropium [place] 0.5 mg Q4HR NEB 02/26/25 14:00 03/17/25 09:23 0.5 MG Heparin Sodium (Porcine) 5,000 units Q12HR SC 02/27/25 22:00 03/17/25 09:48 5,000 UNITS Dextrose 50 ml UD PRN IV 02/27/25 11:45 Enteral Nutritional Formula 1,000 ml 30ML/HR GT 03/03/25 09:30 03/03/25 14:56 1,000 ML Sennosides 8.6 mg HS PO 03/03/25 22:00 03/16/25 22:10 8.6 MG Polyethylene Glycol 17 gm DAILY PO 03/03/25 18:40 03/12/25 11:42 17 GM Clonidine HCl 0.2 mg Q8HR PO 03/04/25 14:00 03/17/25 13:41 0.2 MG Prazosin HCl 1 mg Q12HR PO 03/05/25 22:00 03/17/25 09:47 1 MG Famotidine 10 mg EOD IV 03/08/25 10:00 03/16/25 09:33 10 MG Doxycycline Hyclate 100 ml @ 50 mls/hr Q12H IV 03/07/25 00:00 03/17/25 12:00 50 MLS/HR Amlodipine Besylate 10 mg DAILY PO 03/08/25 10:00 03/17/25 09:46 10 MG Carvedilol 25 mg Q12HR PO 03/12/25 10:00 03/17/25 09:46 25 MG Minoxidil 5 mg Q12HR PO 03/12/25 22:00 03/17/25 09:47 5 MG Clonazepam 1 mg Q12HP PRN PO 03/13/25 09:15 Hydromorphone HCl 0.25 mg Q3HPRN PRN IV 03/14/25 11:00 03/17/25 09:49 0.25 MG Prochlorperazine Edisylate 5 mg Q4HPRN PRN IV 03/14/25 12:45 03/17/25 09:48 5 MG objective HEENT: Oral mucosa moist Pulmonary: CTA Cardiovascular S1-S2, no S3 or S4 Abdomen: Bowel sounds positive, soft no rebound tenderness Skin: No rash Neurological: Alert and oriented Extremities: No edema Noriega catheter in place. CVC right upper chest minimal evidence of recent bleed no active bleed laboratory and microbiology Laboratory Tests 03/17/25 04:52 Test 03/17/25 04:52 Range/Units Serum Glucose 102 74-106 mg/dL Problem List Assessment Hemodialysis dependent Severe CHANDRA secondary to hypertensive crisis and end organ damage CKD stage 4 is his baseline, likely progression to Chronic kidney disease HTN emergency, patient has historically refused oral anti hypertensives due to multiple "allergies" and side effects Endorsed previous poor tolerance to multiple antihypertensive meds Multiple cardiology and nephrology evaluations at [facility], [facility], etc have not helped him because he "cannot take any anti hypertensives orally" He was offered nephrectomy and HD at [facility] recently but declined He was sent for renal denervation and or osmar-receptor stimulation therapy but he could not get access to this Acute hypoxic respiratory failure on supplemental oxygen Pneumonia Bacteremia gram positive cocci elevated troponin, r/o NSTEMI h/o carotid artery stenosis s/p stent h/o TIA Hypothyroidism PTSD Assessment/Plan: Hemodialysis Sunday. Continue carvedilol, amlodipine, minoxidil, prazosin, clonidine p.o.. 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 EN regimen will provide 2222 kcals (including Propofol), 78g Pro, and 715 mL free H2O per 24 hrs. Goal rate will meet ~ 98% estimated daily energy needs and ~ 72% estimated daily protein needs 4) Advance to renal cardiac diet when medically feasible, pending ST approval 5) Follow-up with cardiology, pulmonology, and nephrology 6) Continue to monitor I&O, labs, and skin integrity Expected Outcomes/Goals: 1) patient to receive nutrition support within 7 days of NPO status 2) GI symptoms and labs to improve 3) diet to advance 4) f/u in 2-3 days Plan discussed with: Patient CLAIRE JAMES MD Mar 17, 2025 14:04
--- NOTE | 2025-03-17 14:50 | DVHPN2 ---
Assessment/Plan Assessment/Plan ICU note 54 M with resistant HTN (with noted allergies but reported making him feel "very sick", no anaphylaxis hx), CKD4, carotid artery stenosis s/p stenting, TIAs, thyroid disease. intubated for acute hypoxic RF 2/2 pulm edema. currently on HD. clean coronaries in 2022. prior plan for BAT and renal denervations. seen today. pending pt eval, chair time. bp controlled physical exam on NC intermittently uncooperative, however alert, protecting airway, able to take meds PERLLA s1 s2 rrr clear breath sounds abdomen soft trace le edema labs ekg imaging reviewed assessment and plan acute hypoxic RF req mech vent aspiration PNA gp vs gn CHANDRA ATN on CKD on HD HTN emergency pulmonary edema type 2 [place] demand ischemia and decreased renal clearance GPC bacteremia metabolic encephalopathy? c/w mech vent daily SAT SBT maintain sbp <150, c/w nicardipine HD per renal, bumex per renal c/w vanc Zosyn start nepro start oral anti htn (will have to use alternatives for allergies?) now on prazosin, clonidine, coreg, amlodipine and minoxidil dc hydrocortisone art duplex prohlorperazine for nausea reinforce oral feeding pt eval diet puree diet dvt ppx heprain gi ppx pepcid condition critical prognosis poor Plan discussed with: Patient My Orders Orders - DION ROSA MD Procedure Category Date Status Time * Eyelet Punch Operator CONS 03/17/25 Transmitted Consult Date of Service: Mar 17, 2025 Billing Provider: DION ROSA MD Common Visit Codes: [id number] INP/OBS CARE(HIGH) DION ROSA MD Mar 17, 2025 14:50
--- NOTE | 2025-03-17 18:09 | DVHPN2 ---
Progress Note - Dictate Date Seen: Mar 17, 2025 Has the PT tested + for MRSA If YES, has PT been informed?: No Medical Necessity Reason Pt with a Central, PICC or Fol: Yes The following are medically ne: Noriega Catheter Reason for noriega catheter: Strict I&O vital signs Vital Sign Date Time Temp Pulse Resp B/P (MAP) Pulse Ox O2 Delivery O2 Flow Rate FiO2 03/17/25 17:53 110 14 120/53 03/17/25 16:53 99.7 93 99.7 03/17/25 14:05 Room Air 0.0 03/17/25 14:05 21 Total Intake and Output 03/16/25 03/16/25 03/17/25 15:00 23:00 07:00 Intake Total 100 ml 240 ml 100 ml Output Total 20 ml Balance 100 ml 220 ml 100 ml medications Current Medications Medications Dose Ordered Sig/Shayan Route Start Time Stop Time Status Last Admin Dose Admin Aspirin 81 mg DAILY PO 02/22/25 10:00 03/17/25 09:47 81 MG Levothyroxine Sodium 50 mcg QAM@0600 PO 02/22/25 06:00 03/17/25 05:27 50 MCG Sodium Chloride 10 ml Q8HR IV 02/22/25 06:00 03/17/25 13:30 10 ML Ipratropium [place] 0.5 mg Q4HR NEB 02/26/25 14:00 03/17/25 14:05 0.5 MG Heparin Sodium (Porcine) 5,000 units Q12HR SC 02/27/25 22:00 03/17/25 09:48 5,000 UNITS Dextrose 50 ml UD PRN IV 02/27/25 11:45 Enteral Nutritional Formula 1,000 ml 30ML/HR GT 03/03/25 09:30 03/03/25 14:56 1,000 ML Sennosides 8.6 mg HS PO 03/03/25 22:00 03/16/25 22:10 8.6 MG Polyethylene Glycol 17 gm DAILY PO 03/03/25 18:40 03/12/25 11:42 17 GM Clonidine HCl 0.2 mg Q8HR PO 03/04/25 14:00 03/17/25 13:41 0.2 MG Prazosin HCl 1 mg Q12HR PO 03/05/25 22:00 03/17/25 09:47 1 MG Famotidine 10 mg EOD IV 03/08/25 10:00 03/16/25 09:33 10 MG Doxycycline Hyclate 100 ml @ 50 mls/hr Q12H IV 03/07/25 00:00 03/17/25 12:00 50 MLS/HR Amlodipine Besylate 10 mg DAILY PO 03/08/25 10:00 03/17/25 09:46 10 MG Carvedilol 25 mg Q12HR PO 03/12/25 10:00 03/17/25 09:46 25 MG Minoxidil 5 mg Q12HR PO 03/12/25 22:00 03/17/25 09:47 5 MG Clonazepam 1 mg Q12HP PRN PO 03/13/25 09:15 Hydromorphone HCl 0.25 mg Q3HPRN PRN IV 03/14/25 11:00 03/17/25 17:16 0.25 MG Prochlorperazine Edisylate 5 mg Q4HPRN PRN IV 03/14/25 12:45 03/17/25 17:16 5 MG laboratory and microbiology Laboratory Tests 03/17/25 04:52 Test 03/17/25 04:52 Range/Units Serum Glucose 102 74-106 mg/dL Assessment/Plan Acute hypoxemic respiratory failure On mechanical ventilator Fluid overload Pneumonia Atelectasis Pulmonary edema Anemia ESRD, on hemodialysis Events: Status post extubation d/graded Low oxygen requirements On room air No acute events Labs and imaging reviewed Plan: Supplemental oxygen as needed Titrate FIO2 to keep O2 saturation above 90%. Incentive spirometry Aspiration precautions Continue antibiotics Follow up cultures Bronchodilators Accu-Cheks, ISS prn. Monitor renal function HD as per nephrology Management deferred Dietary Evaluation Review Comments: 1) Initiate Nephro-Tayla @ 1 tb qd 2) If patient remains NPO > 7 days, consider EN/TPN to meet at least 75% of estimated daily needs 3) If GI route is preferred, consider Nepro CarbSteady @ 40 mL/hr goal rate as tolerated. EN regimen will provide 2222 kcals (including Propofol), 78g Pro, and 715 mL free H2O per 24 hrs. Goal rate will meet ~ 98% estimated daily energy needs and ~ 72% estimated daily protein needs 4) Advance to renal cardiac diet when medically feasible, pending ST approval 5) Follow-up with cardiology, pulmonology, and nephrology 6) Continue to monitor I&O, labs, and skin integrity Expected Outcomes/Goals: 1) patient to receive nutrition support within 7 days of NPO status 2) GI symptoms and labs to improve 3) diet to advance 4) f/u in 2-3 days Plan discussed with: Patient GERMÁN TORRES MD Mar 17, 2025 18:09
--- NOTE | 2025-03-17 22:04 | DVHPN2 ---
Progress Note - Dictate Date Seen: Mar 17, 2025 Has the PT tested + for MRSA If YES, has PT been informed?: No Medical Necessity Reason Pt with a Central, PICC or Fol: Yes The following are medically ne: Noriega Catheter Reason for noriega catheter: Strict I&O Subjective Mr. Mercado is a 54 years old right-handed gentleman with a history of hypertension, hypothyroidism, chronic kidney failure, systemic inflammatory response syndrome, TIA, stroke with left-sided residual weakness, seizure, brain aneurysm, PTSD, a long list of drug allergy, he came to the [facility] on 02/21/2025 with a chief complaint of chest pain, but his hospital stay was complicated with elevated troponin I/heart attack, respiratory failure and he was intubated in the evening on 02/25/2025, with appropriate treatment, the patient is stabilized and improving, but is not waking up as expected. I saw him in 07/2013 for headache, 08/05/15 for intractable headache, possible TIA, 12/17/2017 for stroke I have seen and examined the patient, talked to his nurse, he keeps improving, he is awake, oriented to person, place, he remember me, he can talk with good voice Urinalysis, 02/26/2025: WBC: 4, urine leukocyte esterase: Negative ABG, 02/25/2025: Metabolic acidosis, 02/26/2025: Hypoxia, metabolic acidosis CBC, 02/21/2025, 10.7/13.1/154/83.9, 03/08/2025: 9.6/8.7/260/87.4 BUN/CR, 03/08/2025: 52/5.15 GFR, 03/08/2020 5:13 a.m. Troponin one high sensitivity, 02/22/2025: 541, 1173, 2396, 4495, 5273 TBI/AST/ALT/AP, 03/08/2025: 0.3/637/200/211 TG/HDL/LDL/HDL, 02/22/2025: 249/177/96/30 Chest x-ray, 02/25/2025: 1. Endotracheal tube in place 6.4 cm above the ivan 2. Enteric tube below the diaphragm in the stomach. 3. Cardiopulmonary findings most likely secondary to congestive failure Chest x-ray, 03/08/2025: No significant change from the previous study. Stable support devices. Unchanged endotracheal tube, enteric tube, and right IJ catheter. CT head, 02/21/2025: 1. No acute intracranial abnormality. 2. Old lacunar infarct external capsule right basal ganglia CT head, 12/18/2017: Normal noncontrast MRA of the head CT head, 03/08/2025: No acute intracranial abnormality vital signs Vital Sign Date Time Temp Pulse Resp B/P (MAP) Pulse Ox O2 Delivery O2 Flow Rate FiO2 03/17/25 21:12 138/72 03/17/25 21:11 119 03/17/25 21:00 97.7 15 93 97.7 03/17/25 19:55 Room Air* 0 21 Total Intake and Output 03/16/25 03/16/25 03/17/25 15:00 23:00 07:00 Intake Total 100 ml 240 ml 100 ml Output Total 20 ml Balance 100 ml 220 ml 100 ml medications Current Medications Medications Dose Ordered Sig/Shayan Route Start Time Stop Time Status Last Admin Dose Admin Aspirin 81 mg DAILY PO 02/22/25 10:00 03/17/25 09:47 81 MG Levothyroxine Sodium 50 mcg QAM@0600 PO 02/22/25 06:00 03/17/25 05:27 50 MCG Sodium Chloride 10 ml Q8HR IV 02/22/25 06:00 03/17/25 21:12 10 ML Ipratropium [place] 0.5 mg Q4HR NEB 02/26/25 14:00 03/17/25 18:58 0.5 MG Heparin Sodium (Porcine) 5,000 units Q12HR SC 02/27/25 22:00 03/17/25 21:24 5,000 UNITS Dextrose 50 ml UD PRN IV 02/27/25 11:45 Enteral Nutritional Formula 1,000 ml 30ML/HR GT 03/03/25 09:30 03/03/25 14:56 1,000 ML Sennosides 8.6 mg HS PO 03/03/25 22:00 03/17/25 21:11 8.6 MG Polyethylene Glycol 17 gm DAILY PO 03/03/25 18:40 03/12/25 11:42 17 GM Clonidine HCl 0.2 mg Q8HR PO 03/04/25 14:00 03/17/25 21:12 0.2 MG Prazosin HCl 1 mg Q12HR PO 03/05/25 22:00 03/17/25 21:12 1 MG Famotidine 10 mg EOD IV 03/08/25 10:00 03/16/25 09:33 10 MG Doxycycline Hyclate 100 ml @ 50 mls/hr Q12H IV 03/07/25 00:00 03/17/25 12:00 50 MLS/HR Amlodipine Besylate 10 mg DAILY PO 03/08/25 10:00 03/17/25 09:46 10 MG Carvedilol 25 mg Q12HR PO 03/12/25 10:00 03/17/25 21:11 25 MG Minoxidil 5 mg Q12HR PO 03/12/25 22:00 03/17/25 21:11 5 MG Clonazepam 1 mg Q12HP PRN PO 03/13/25 09:15 Hydromorphone HCl 0.25 mg Q3HPRN PRN IV 03/14/25 11:00 03/17/25 17:16 0.25 MG Prochlorperazine Edisylate 5 mg Q4HPRN PRN IV 03/14/25 12:45 03/17/25 17:16 5 MG objective General: the patient is well developed and nourished. No acute distress. MENTAL STATUS: Subjective SPEECH, LANGUAGE, HIGHER CORTICAL FUNCTION: No aphasia or dysarthria CRANIAL NERVES: Pupils are equal, round and reactive. There is conjugated rolling eye movement. Facial sensation intact in all three divisions bilaterally. Mandibular strength intact. Facial muscles symmetrical and strength intact. SENSATION: Okay to painful stimuli MOTOR: Normal tone in the upper and lower extremity. Normal muscle bulk. No fasciculations. No abnormal movements or posturing. He moves the arms and legs REFLEXES: Deep tendon reflexes normal and symmetrical. No pathological reflexes. CEREBELLAR/COORDINATION: Deferred GAIT: Deferred laboratory and microbiology Laboratory Tests 03/17/25 04:52 Test 03/17/25 04:52 Range/Units Serum Glucose 102 74-106 mg/dL Problem List Altered mental status, improving Metabolic encephalopathy Hypoxic encephalopathy Toxic encephalopathy Acute respiratory failure, status post intubation Elevated troponin one/heart attack Acute kidney failure on hemodialysis Elevated stiff function tests Multiple strokes/TIA with residual left-sided weakness Polyneuropathy Assessment/Plan Monitoring Supportive treatment IV antibiotics Aspirin 81 mg daily GI prophylaxis/famotidine DVT prophylaxis Oxygen Antibiotics Nephrology on case/Hemodialysis Cardiology on case Pulmonology on case More recommendation per clinical course This medical document was created using an electronic medical record system with [employer] dictation system. Although this document has been carefully reviewed, there may still be some phonetic and typographical errors. These areas are purely typographical due to imperfections of the software programs, and do not reflect any compromise in the patient's medical care. Prognosis poor Dietary Evaluation Review Comments: 1) Initiate Nephro-Tayla @ 1 tb qd 2) If patient remains NPO > 7 days, consider EN/TPN to meet at least 75% of estimated daily needs 3) If GI route is preferred, consider Nepro CarbSteady @ 40 mL/hr goal rate as tolerated. EN regimen will provide 2222 kcals (including Propofol), 78g Pro, and 715 mL free H2O per 24 hrs. Goal rate will meet ~ 98% estimated daily energy needs and ~ 72% estimated daily protein needs 4) Advance to renal cardiac diet when medically feasible, pending ST approval 5) Follow-up with cardiology, pulmonology, and nephrology 6) Continue to monitor I&O, labs, and skin integrity Expected Outcomes/Goals: 1) patient to receive nutrition support within 7 days of NPO status 2) GI symptoms and labs to improve 3) diet to advance 4) f/u in 2-3 days Plan discussed with: ERASMO De Leon MD Mar 17, 2025 22:04
[2025-03-18] VITALS (15 sets, daily range): BP systolic 112–156; BP diastolic 64–88; PULSE 83–124; RESP 14–20; TEMP 97.5–99; O2SAT 92–99
[2025-03-18 06:49] LABS: Hematocrit 24.0 % (41.0-53.0); Hemoglobin 8.6 g/dL (13.5-17.5); Mean Corpuscular Hemoglobin 31.6 pg (28.0-32.0); Mean Corpuscular Volume 87.6 fL (80.0-100.0); Nucleated Red Blood Cells % 0.2 %
[2025-03-18] MEDS: SODIUM CHL 0.9% 1000 ML BAG XX ONE (07:00)
[2025-03-18 07:07] LABS: Anion Gap 13 (5-15); Calcium 8.9 mg/dL (8.7-10.4); Carbon Dioxide 27 mmol/L (20-31); Chloride 98 mmol/L (98-107); Potassium 3.5 mmol/L (3.5-5.1); Sodium 138 mmol/L (136-145)
[2025-03-18 07:13] LABS: BUN/Creatinine Ratio 6.8 (10.0-20.0); Glucose 94 mg/dL (74-106)
[2025-03-18 07:17] LABS: Blood Urea Nitrogen 39 mg/dL (9-23)
--- NOTE | 2025-03-18 12:55 | DVHPN2 ---
Progress Note - Dictate Date Seen: Mar 18, 2025 Has the PT tested + for MRSA If YES, has PT been informed?: No Medical Necessity Reason Pt with a Central, PICC or Fol: Yes The following are medically ne: Noriega Catheter Reason for noriega catheter: Strict I&O Subjective No new complaints vital signs Vital Sign Date Time Temp Pulse Resp B/P (MAP) Pulse Ox O2 Delivery O2 Flow Rate FiO2 03/18/25 11:29 102 18 151/76 03/18/25 10:29 99 03/18/25 10:19 Room Air* 0 21 03/18/25 08:59 99.0 99.0 Total Intake and Output 03/17/25 03/17/25 03/18/25 15:00 23:00 07:00 Intake Total 100 ml 360 ml 0 ml Balance 100 ml 360 ml 0 ml medications Current Medications Medications Dose Ordered Sig/Shayan Route Start Time Stop Time Status Last Admin Dose Admin Aspirin 81 mg DAILY PO 02/22/25 10:00 03/18/25 10:02 81 MG Levothyroxine Sodium 50 mcg QAM@0600 PO 02/22/25 06:00 03/18/25 05:22 50 MCG Sodium Chloride 10 ml Q8HR IV 02/22/25 06:00 03/18/25 05:22 10 ML Ipratropium [place] 0.5 mg Q4HR NEB 02/26/25 14:00 03/18/25 10:19 0.5 MG Heparin Sodium (Porcine) 5,000 units Q12HR SC 02/27/25 22:00 03/18/25 10:04 5,000 UNITS Dextrose 50 ml UD PRN IV 02/27/25 11:45 Enteral Nutritional Formula 1,000 ml 30ML/HR GT 03/03/25 09:30 03/03/25 14:56 1,000 ML Sennosides 8.6 mg HS PO 03/03/25 22:00 03/17/25 21:11 8.6 MG Polyethylene Glycol 17 gm DAILY PO 03/03/25 18:40 03/18/25 09:56 17 GM Clonidine HCl 0.2 mg Q8HR PO 03/04/25 14:00 03/17/25 21:12 0.2 MG Prazosin HCl 1 mg Q12HR PO 03/05/25 22:00 03/18/25 09:58 1 MG Famotidine 10 mg EOD IV 03/08/25 10:00 03/18/25 09:56 10 MG Amlodipine Besylate 10 mg DAILY PO 03/08/25 10:00 03/18/25 09:57 10 MG Carvedilol 25 mg Q12HR PO 03/12/25 10:00 03/18/25 10:01 25 MG Minoxidil 5 mg Q12HR PO 03/12/25 22:00 03/18/25 09:59 5 MG Clonazepam 1 mg Q12HP PRN PO 03/13/25 09:15 Hydromorphone HCl 0.25 mg Q3HPRN PRN IV 03/14/25 11:00 03/18/25 11:29 0.25 MG Prochlorperazine Edisylate 5 mg Q4HPRN PRN IV 03/14/25 12:45 03/18/25 11:27 5 MG objective HEENT: Oral mucosa moist Pulmonary: CTA Cardiovascular S1-S2, no S3 or S4 Abdomen: Bowel sounds positive, soft no rebound tenderness Skin: No rash Neurological: Alert and oriented Extremities: No edema Noriega catheter in place. CVC right upper chest minimal evidence of recent bleed no active bleed laboratory and microbiology Laboratory Tests 03/18/25 06:18 Test 03/18/25 06:18 Range/Units Serum Glucose 94 74-106 mg/dL Problem List Assessment Hemodialysis dependent Severe CHANDRA secondary to hypertensive crisis and end organ damage HTN emergency, patient has historically refused oral anti hypertensives due to multiple "allergies" and side effects Endorsed previous poor tolerance to multiple antihypertensive meds Multiple cardiology and nephrology evaluations at [facility], [facility], etc have not helped him because he "cannot take any anti hypertensives orally" He was offered nephrectomy and HD at [facility] recently but declined He was sent for renal denervation and or osmar-receptor stimulation therapy but he could not get access to this Pneumonia has resolved Bacteremia gram positive cocci Hypertensive cardiomyopathy h/o carotid artery stenosis s/p stent h/o TIA Hypothyroidism PTSD Assessment/Plan: Hemodialysis Sunday. Continue carvedilol, amlodipine, minoxidil, prazosin, clonidine p.o.. 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 Patient tolerating well current antihypertensive regimen Cleared for DC home today Dietary Evaluation Review Comments: 1) Initiate Nephro-Tayla @ 1 tb qd 2) If patient remains NPO > 7 days, consider EN/TPN to meet at least 75% of estimated daily needs 3) If GI route is preferred, consider Nepro CarbSteady @ 40 mL/hr goal rate as tolerated. EN regimen will provide 2222 kcals (including Propofol), 78g Pro, and 715 mL free H2O per 24 hrs. Goal rate will meet ~ 98% estimated daily energy needs and ~ 72% estimated daily protein needs 4) Advance to renal cardiac diet when medically feasible, pending ST approval 5) Follow-up with cardiology, pulmonology, and nephrology 6) Continue to monitor I&O, labs, and skin integrity Expected Outcomes/Goals: 1) patient to receive nutrition support within 7 days of NPO status 2) GI symptoms and labs to improve 3) diet to advance 4) f/u in 2-3 days Plan discussed with: Patient CLAIRE JAMES MD Mar 18, 2025 12:55
--- NOTE | 2025-03-18 16:45 | DVHPN2 ---
Progress Note - Dictate Date Seen: Mar 18, 2025 Has the PT tested + for MRSA If YES, has PT been informed?: No Medical Necessity Reason Pt with a Central, PICC or Fol: Yes The following are medically ne: Noriega Catheter Reason for noriega catheter: Strict I&O vital signs Vital Sign Date Time Temp Pulse Resp B/P (MAP) Pulse Ox O2 Delivery O2 Flow Rate FiO2 03/18/25 14:53 126/78 03/18/25 12:59 97.9 114 18 94 97.9 03/18/25 10:19 Room Air* 0 21 Total Intake and Output 03/17/25 03/17/25 03/18/25 15:00 23:00 07:00 Intake Total 100 ml 360 ml 0 ml Balance 100 ml 360 ml 0 ml medications Current Medications Medications Dose Ordered Sig/Shayan Route Start Time Stop Time Status Last Admin Dose Admin Aspirin 81 mg DAILY PO 02/22/25 10:00 03/18/25 10:02 81 MG Levothyroxine Sodium 50 mcg QAM@0600 PO 02/22/25 06:00 03/18/25 05:22 50 MCG Sodium Chloride 10 ml Q8HR IV 02/22/25 06:00 03/18/25 14:05 10 ML Ipratropium [place] 0.5 mg Q4HR NEB 02/26/25 14:00 03/18/25 10:19 0.5 MG Heparin Sodium (Porcine) 5,000 units Q12HR SC 02/27/25 22:00 03/18/25 10:04 5,000 UNITS Dextrose 50 ml UD PRN IV 02/27/25 11:45 Enteral Nutritional Formula 1,000 ml 30ML/HR GT 03/03/25 09:30 03/03/25 14:56 1,000 ML Sennosides 8.6 mg HS PO 03/03/25 22:00 03/17/25 21:11 8.6 MG Polyethylene Glycol 17 gm DAILY PO 03/03/25 18:40 03/18/25 09:56 17 GM Clonidine HCl 0.2 mg Q8HR PO 03/04/25 14:00 03/18/25 14:53 0.2 MG Prazosin HCl 1 mg Q12HR PO 03/05/25 22:00 03/18/25 09:58 1 MG Famotidine 10 mg EOD IV 03/08/25 10:00 03/18/25 09:56 10 MG Amlodipine Besylate 10 mg DAILY PO 03/08/25 10:00 03/18/25 09:57 10 MG Carvedilol 25 mg Q12HR PO 03/12/25 10:00 03/18/25 10:01 25 MG Minoxidil 5 mg Q12HR PO 03/12/25 22:00 03/18/25 09:59 5 MG Clonazepam 1 mg Q12HP PRN PO 03/13/25 09:15 Hydromorphone HCl 0.25 mg Q3HPRN PRN IV 03/14/25 11:00 03/18/25 11:29 0.25 MG Prochlorperazine Edisylate 5 mg Q4HPRN PRN IV 03/14/25 12:45 03/18/25 11:27 5 MG laboratory and microbiology Laboratory Tests 03/18/25 06:18 Test 03/18/25 06:18 Range/Units Serum Glucose 94 74-106 mg/dL Assessment/Plan Acute hypoxemic respiratory failure On mechanical ventilator Fluid overload Pneumonia Atelectasis Pulmonary edema Anemia ESRD, on hemodialysis Events: Status post extubation Low oxygen requirements On room air No acute events Labs and imaging reviewed Plan: Supplemental oxygen as needed Titrate FIO2 to keep O2 saturation above 90%. Incentive spirometry Aspiration precautions Continue antibiotics Follow up cultures Bronchodilators Accu-Cheks, ISS prn. Monitor renal function HD as per nephrology Management deferred Dietary Evaluation Review Comments: 1) Initiate Nephro-Tayla @ 1 tb qd 2) If patient remains NPO > 7 days, consider EN/TPN to meet at least 75% of estimated daily needs 3) If GI route is preferred, consider Nepro CarbSteady @ 40 mL/hr goal rate as tolerated. EN regimen will provide 2222 kcals (including Propofol), 78g Pro, and 715 mL free H2O per 24 hrs. Goal rate will meet ~ 98% estimated daily energy needs and ~ 72% estimated daily protein needs 4) Advance to renal cardiac diet when medically feasible, pending ST approval 5) Follow-up with cardiology, pulmonology, and nephrology 6) Continue to monitor I&O, labs, and skin integrity Expected Outcomes/Goals: 1) patient to receive nutrition support within 7 days of NPO status 2) GI symptoms and labs to improve 3) diet to advance 4) f/u in 2-3 days Plan discussed with: Patient GERMÁN TORRES MD Mar 18, 2025 16:45
--- NOTE | 2025-03-18 19:21 | DVHPN2 ---
Assessment/Plan Assessment/Plan ICU note 54 M with resistant HTN (with noted allergies but reported making him feel "very sick", no anaphylaxis hx), CKD4, carotid artery stenosis s/p stenting, TIAs, thyroid disease. intubated for acute hypoxic RF 2/2 pulm edema. currently on HD. clean coronaries in 2022. prior plan for BAT and renal denervations. seen today. ss consult for snf pt rehab. work with pt while inpatient. chair time scheduled with victoria. swallow eval physical exam on NC intermittently uncooperative, however alert, protecting airway, able to take meds PERLLA s1 s2 rrr clear breath sounds abdomen soft trace le edema labs ekg imaging reviewed assessment and plan acute hypoxic RF req mech vent aspiration PNA gp vs gn CHANDRA ATN on CKD on HD HTN emergency pulmonary edema type 2 [place] demand ischemia and decreased renal clearance GPC bacteremia metabolic encephalopathy? 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
[2025-03-19] VITALS (14 sets, daily range): BP systolic 118–148; BP diastolic 75–86; PULSE 71–114; RESP 14–20; TEMP 97.8–98.6; O2SAT 92–99
--- NOTE | 2025-03-19 13:53 | DVHDS2 ---
Discharge Summary Date of Admission Feb 21, 2025 at 23:10 Date of Discharge: Mar 19, 2025 Labs/Diagnostic Data: Laboratory Results Test 03/18/25 06:18 03/16/25 03:18 03/13/25 16:42 03/13/25 15:22 White Blood Count 6.3 10^3/uL (4.4-10.8) Red Blood Count 2.74 10^6/uL (4.5-5.90) Hemoglobin 8.6 g/dL (13.5-17.5) Hematocrit 24.0 % (41.0-53.0) Mean Corpuscular Volume 87.6 fL (80.0-100.0) Mean Corpuscular Hemoglobin 31.6 pg (28.0-32.0) Mean Corpuscular Hemoglobin Concent 36.1 g/dL (32.0-36.0) Red Cell Distribution Width 14.8 % (11.8-14.3) Platelet Count 362 10^3/uL (140-450) Mean Platelet Volume 6.5 fL (6.9-10.8) Neutrophils (%) (Auto) 70.3 % (37.0-80.0) Lymphocytes (%) (Auto) 17.3 % (10.0-50.0) Monocytes (%) (Auto) 6.4 % (0.0-12.0) Eosinophils (%) (Auto) 3.3 % (0.0-7.0) Basophils (%) (Auto) 2.7 % (0.0-2.0) Neutrophils # (Auto) 4.5 10 ^3/uL (1.6-8.6) Lymphocytes # (Auto) 1.1 10 ^3/uL (0.4-5.4) Monocytes # (Auto) 0.4 10 ^3/uL (0-1.3) Eosinophils # (Auto) 0.2 10 ^3/uL (0-0.8) Basophils # (Auto) 0.2 10 ^3/uL (0-0.2) Nucleated Red Blood Cells 0.2 % Sodium Level 138 mmol/L (136-145) Potassium Level 3.5 mmol/L (3.5-5.1) Chloride Level 98 mmol/L (98-107) Carbon Dioxide Level 27 mmol/L (20-31) Anion Gap 13 (5-15) Blood Urea Nitrogen 39 mg/dL (9-23) Creatinine 5.73 mg/dL (0.700-1.30) Glomerular Filtration Rate Calc 11 mL/min (>90) BUN/Creatinine Ratio 6.8 (10.0-20.0) Serum Glucose 94 mg/dL (74-106) Calcium Level 8.9 mg/dL (8.7-10.4) Total Bilirubin 0.2 mg/dL (0.2-1.0) Aspartate Amino Transferase (AST) 64 U/L (13-40) Alanine Aminotransferase (ALT) 102 U/L (7-40) Alkaline Phosphatase 96 U/L (46-116) Total Protein 5.2 g/dL (5.7-8.2) Albumin 3.2 g/dL (3.2-4.8) POC Glucose 114 mg/dl (70-106) Blood Gas Specimen Type Arterial Blood Gas Sample Site Right radial Blood Gas Patient Temperature 37.0 Arterial Blood Date Drawn [id number] Arterial Blood pH 7.508 (7.350-7.450) Arterial Blood Partial Pressure CO2 29.6 mmHg (35.0-48.0) Arterial Blood Partial Pressure O2 80.4 mmHg (83.0-108.0) Arterial Blood HCO3 23.0 mmol/L (21.0-28.0) Arterial Blood Oxygen Saturation 95.3 % (94.0-98.0) Arterial Blood Base Excess 0.4 mmol/L (-2.0-3.0) Arterial Blood Oxyhemoglobin 94.8 % (94.0-98.0) Arterial Blood Carboxyhemoglobin 0.2 % (0.5-1.5) Arterial Blood Methemoglobin 0.3 % (0.0-1.5) Leon Test Modified Blood Gas Total Hemoglobin 9.60 g/dL (13.5-17.5) Blood Gas Modality Vent - cpap FiO2 % 30.0 Blood Gas Pressure Support 8 Blood Gas PEEP or CPAP 5.0 Test 03/13/25 07:42 03/13/25 03:00 03/12/25 14:29 03/12/25 02:32 Blood Gas Set Respiration Rate 22.0 Blood Gas Tidal Volume 500.0 Lactic Acid Level 0.9 mmol/L (0.4-2.0) Phosphorus Level 8.0 mg/dL (2.4-5.1) Magnesium Level 2.5 mg/dL (1.6-2.6) Creatine Kinase 861 U/L (46-171) Hepatitis B Core Total Antibody Negative (Negative) Random Vancomycin Level 20.3 ug/mL (5-10) Hepatitis B Surface Antigen Negative (Negative) Hepatitis B Surface Antibody Negative (Negative) Hepatitis C Antibody Negative (Negative) Test 03/10/25 04:09 03/03/25 13:22 03/02/25 07:37 02/27/25 03:00 Prothrombin Time 12.3 sec (9.3-11.8) Prothrombin Time INR 1.18 (0.9-1.15) Activated Partial Thromboplast Time < 20.0 SEC (24.5-34.5) Plasma Metanephrine 31.9 pg/mL (0.0-88.0) Plasma Normetanephrine 209.4 pg/mL (0.0-244.0) Blood Gas Spontaneous Rate 22 Specimen Drawn By Jay [facility] Differential Total Cells Counted 100.0 (100) Neutrophils % (Manual) 96 (37.0-80.0) Band Neutrophils % (Manual) 1 Lymphocytes % (Manual) 2 (10.0-50.0) Monocytes % (Manual) 1 (0-12) Eosinophils % (Manual) 0 (0-7) Basophils % (Manual) 0 (0.0-2.0) Metamyelocytes % (manual) 0 Myelocytes % (Manual) 0 Promyelocytes % (Manual) 0 Blast Cells % (Manual) 0 Reactive Lymphocytes 0 Platelet Estimate Adequate Beta-Hydroxybutyric Acid 0.233 mmol/L (< 0.4) Test 02/26/25 10:07 02/26/25 02:00 02/26/25 01:44 02/25/25 15:08 Blood Gas Critical Value Read Back Yes Blood Gas Notified Whom jeferson Bull Blood Gas Notified Time [id number] Blood Gas Notified By Bayron martin Urine Color Light-yellow (Yellow) Urine Clarity Turbid (Clear) Urine pH 5.0 (5.0-9.0) Urine Specific [place] 1.011 (1.001-1.035) Urine Protein 1+ (Negative) Urine Ketones Negative (Negative) Urine Blood Trace /uL (Negative) Urine Nitrite Negative (Negative) Urine Bilirubin Negative (Negative) Urine Urobilinogen Normal mg/dL (Negative) Urine Leukocyte Esterase Negative /uL (Negative) Urine RBC 1 /hpf (0 - 3) Urine Microscopic WBC 4 /HPF (0-3) Urine Squamous Epithelial Cells Few /hpf (<5) Urine Amorphous Crystals Few /hpf (None Seen) Urine Bacteria Few /hpf (None Seen) Urine Glucose Normal mg/dL (Normal) Lactate Dehydrogenase 319 U/L (120-246) Blood Gas Liter Flow 10.00 Test 02/23/25 08:03 02/22/25 14:47 02/22/25 10:12 02/22/25 02:53 Cortisol AM Sample 22.53 ug/dL (5.27-22.45) Troponin I High Sensitivity 5273 ng/L (</=54) Cortisol PM Sample 15.22 ug/dL (3.44-16.76) Renin Activity 28 ng/mL/hr (.) Aldosterone 23 ng/dL (.) Hemoglobin A1c 4.3 % A1C (<5.7) Triglycerides Level 249 mg/dL (< 150) Cholesterol Level 177 mg/dL (< 200) LDL Cholesterol 96 mg/dL (< 100) HDL Cholesterol 30 mg/dL (40-59) Test 02/21/25 19:48 Thyroid Stimulating Hormone (TSH) 4.89 uIU/mL (0.55-4.78) Other Laboratory Tests 03/18/25 06:18 Brief Hx & Hospital Course: 54 M with resistant HTN (with noted allergies but reported making him feel "very sick", no anaphylaxis hx), CKD4, carotid artery stenosis s/p stenting, TIAs, thyroid disease. intubated for acute hypoxic RF 2/2 pulm edema. currently on HD. clean coronaries in 2022. prior plan for BAT and renal denervations. patient was on nicardipine, and while intubated desensitized with oral anti HTN, which observed no significant reaction. medication was titrated up. patient was extubated. deconditioned. started physical therapy. aptient will continue to get hd regularly. stable to dc to snf for rehab Condition at Discharge: Stable Final Diagnosis/Problems List acute hypoxic RF req mech vent aspiration PNA gp vs gn CHANDRA ATN on CKD on HD HTN emergency pulmonary edema type 2 [place] demand ischemia and decreased renal clearance GPC bacteremia metabolic encephalopathy? Discharge Disposition: [facility] Discharge Instruct/Medications Diet: Consistent carbohydrate, Cardiac 2g Na,low cholest Activity: No Restrictions, As Tolerated Scheduled Aspirin (Aspir-Low), 81 MG PO DAILY, (Reported) Furosemide (Furosemide), 40 MG PO DAILY, (Reported) Hydralazine HCl (Hydralazine HCl), 25 MG PO Q6HR Isosorbide Dinitrate (Isosorbide Dinitrate), 20 MG PO TID@06,12,18 Levothyroxine Sodium (Synthroid Tablet), 1 TAB PO DAILY, (Reported) Nifedipine (Nifedipine Er), 1 TAB PO DAILY, (Reported) Oxycodone W/ Acetaminophen (Percocet 5/325MG), 1 TAB PO QID, (Reported) Prochlorperazine Maleate (Compazine), 10 MG IM QIDP, (Reported) Miscellaneous Medications Hydroxyzine Hcl (Hydroxyzine Hcl), 25 MG PO, (Reported) Labetalol Hcl (Labetalol Hcl), 300 MG PO, (Reported) Omeprazole (Gnp Omeprazole), 40 MG PO, (Reported) Potassium Chloride (Klor-Con 8), 8 MEQ PO, (Reported) Discharge Statement: "Patient was advised to return to the ER or call 911 if any headaches, dizziness, shortness of breath, chest pain, abdominal pain, bleeding, fevers, or worsening of medical condition. Patient was counseled about treatment plan, medications, possible side effects, patientverbalized understanding. All questions were answered to the best of my ability. This discharge took greater then 30 minutes in planning, reviewing documentation, counseling the patient, and discussing with other team members." ASSESSMENT ASSESSMENT Assessment acute hypoxic RF met encephalopathy reisitsant HTN ESRD Date of Service: Mar 19, 2025 Billing Provider: DION ROSA MD Common Visit Codes: [id number] DISCH DAY >30min DION ROSA MD Mar 19, 2025 13:53
--- NOTE | 2025-03-19 14:15 | DVHPN2 ---
Progress Note - Dictate Date Seen: Mar 19, 2025 Has the PT tested + for MRSA If YES, has PT been informed?: No Medical Necessity Reason Pt with a Central, PICC or Fol: Yes The following are medically ne: Noriega Catheter Reason for noriega catheter: Strict I&O Subjective Alert, oriented x 2 Nad vital signs Vital Sign Date Time Temp Pulse Resp B/P (MAP) Pulse Ox O2 Delivery O2 Flow Rate FiO2 03/19/25 13:23 98.0 106 14 127/76 (93) 94 98.0 03/19/25 10:56 Room Air 0.0 03/19/25 10:56 21 Total Intake and Output 03/18/25 03/18/25 03/19/25 15:00 23:00 07:00 Intake Total 200 ml Balance 200 ml medications Current Medications Medications Dose Ordered Sig/Shayan Route Start Time Stop Time Status Last Admin Dose Admin Aspirin 81 mg DAILY PO 02/22/25 10:00 03/19/25 10:08 81 MG Levothyroxine Sodium 50 mcg QAM@0600 PO 02/22/25 06:00 03/19/25 05:41 50 MCG Sodium Chloride 10 ml Q8HR IV 02/22/25 06:00 03/19/25 05:46 10 ML Ipratropium [place] 0.5 mg Q4HR NEB 02/26/25 14:00 03/19/25 10:56 0.5 MG Heparin Sodium (Porcine) 5,000 units Q12HR SC 02/27/25 22:00 03/19/25 10:48 5,000 UNITS Dextrose 50 ml UD PRN IV 02/27/25 11:45 Sennosides 8.6 mg HS PO 03/03/25 22:00 03/18/25 22:44 8.6 MG Polyethylene Glycol 17 gm DAILY PO 03/03/25 18:40 03/19/25 10:03 17 GM Clonidine HCl 0.2 mg Q8HR PO 03/04/25 14:00 03/18/25 22:29 0.2 MG Prazosin HCl 1 mg Q12HR PO 03/05/25 22:00 03/19/25 10:08 1 MG Amlodipine Besylate 10 mg DAILY PO 03/08/25 10:00 03/19/25 10:07 10 MG Carvedilol 25 mg Q12HR PO 03/12/25 10:00 8/14/25 10:05 25 MG Minoxidil 5 mg Q12HR PO 03/12/25 22:00 03/19/25 10:06 5 MG Clonazepam 1 mg Q12HP PRN PO 03/13/25 09:15 Enteral Nutritional Formula 240 ml TIDWM PO 03/19/25 18:00 Famotidine 20 mg Q12HR PO 03/19/25 22:00 Prochlorperazine Maleate 5 mg TID PO 03/19/25 14:00 Hydromorphone HCl 2 mg Q8HR PO 03/19/25 14:00 objective HEENT: Oral mucosa moist Pulmonary: CTA Cardiovascular S1-S2, no S3 or S4 Abdomen: Bowel sounds positive, soft no rebound tenderness Skin: No rash Neurological: Alert and oriented Extremities: No edema Noriega catheter in place. CVC right upper chest minimal evidence of recent bleed no active bleed laboratory and microbiology Laboratory Tests 03/18/25 06:18 Test 03/18/25 06:18 Range/Units Serum Glucose 94 74-106 mg/dL Problem List Assessment Hemodialysis dependent Severe CHANDRA secondary to hypertensive crisis and end organ damage HTN emergency, patient has historically refused oral anti hypertensives due to multiple "allergies" and side effects Endorsed previous poor tolerance to multiple antihypertensive meds Multiple cardiology and nephrology evaluations at [facility], [facility], etc have not helped him because he "cannot take any anti hypertensives orally" He was offered nephrectomy and HD at [facility] recently but declined He was sent for renal denervation and or osmar-receptor stimulation therapy but he could not get access to this Pneumonia has resolved Bacteremia gram positive cocci, resolved Hypertensive cardiomyopathy h/o carotid artery stenosis s/p stent h/o TIA Hypothyroidism PTSD Assessment/Plan: Hemodialysis Sunday. Continue carvedilol, amlodipine, minoxidil, prazosin, clonidine p.o.. 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 EN regimen will provide 2222 kcals (including Propofol), 78g Pro, and 715 mL free H2O per 24 hrs. Goal rate will meet ~ 98% estimated daily energy needs and ~ 72% estimated daily protein needs 4) Advance to renal cardiac diet when medically feasible, pending ST approval 5) Follow-up with cardiology, pulmonology, and nephrology 6) Continue to monitor I&O, labs, and skin integrity Expected Outcomes/Goals: 1) patient to receive nutrition support within 7 days of NPO status 2) GI symptoms and labs to improve 3) diet to advance 4) f/u in 2-3 days Plan discussed with: Patient CLAIRE JAMES MD Mar 19, 2025 14:15
--- NOTE | 2025-03-19 15:12 | DVHPN2 ---
Progress Note - Dictate Date Seen: Mar 19, 2025 Has the PT tested + for MRSA If YES, has PT been informed?: No Medical Necessity Reason Pt with a Central, PICC or Fol: Yes The following are medically ne: Noriega Catheter Reason for noriega catheter: Strict I&O vital signs Vital Sign Date Time Temp Pulse Resp B/P (MAP) Pulse Ox O2 Delivery O2 Flow Rate FiO2 03/19/25 14:35 94 Room Air 0.0 03/19/25 14:35 21 03/19/25 13:23 98.0 106 14 127/76 (93) 98.0 Total Intake and Output 03/18/25 03/18/25 03/19/25 15:00 23:00 07:00 Intake Total 200 ml Balance 200 ml medications Current Medications Medications Dose Ordered Sig/Shayan Route Start Time Stop Time Status Last Admin Dose Admin Aspirin 81 mg DAILY PO 02/22/25 10:00 03/19/25 10:08 81 MG Levothyroxine Sodium 50 mcg QAM@0600 PO 02/22/25 06:00 03/19/25 05:41 50 MCG Sodium Chloride 10 ml Q8HR IV 02/22/25 06:00 03/19/25 05:46 10 ML Ipratropium [place] 0.5 mg Q4HR NEB 02/26/25 14:00 03/19/25 10:56 0.5 MG Heparin Sodium (Porcine) 5,000 units Q12HR SC 02/27/25 22:00 03/19/25 10:48 5,000 UNITS Dextrose 50 ml UD PRN IV 02/27/25 11:45 Sennosides 8.6 mg HS PO 03/03/25 22:00 03/18/25 22:44 8.6 MG Polyethylene Glycol 17 gm DAILY PO 03/03/25 18:40 03/19/25 10:03 17 GM Clonidine HCl 0.2 mg Q8HR PO 03/04/25 14:00 03/18/25 22:29 0.2 MG Prazosin HCl 1 mg Q12HR PO 03/05/25 22:00 03/19/25 10:08 1 MG Amlodipine Besylate 10 mg DAILY PO 03/08/25 10:00 03/19/25 10:07 10 MG Carvedilol 25 mg Q12HR PO 03/12/25 10:00 03/19/25 10:05 25 MG Minoxidil 5 mg Q12HR PO 03/12/25 22:00 03/19/25 10:06 5 MG Clonazepam 1 mg Q12HP PRN PO 03/13/25 09:15 Enteral Nutritional Formula 240 ml TIDWM PO 03/19/25 18:00 Famotidine 20 mg Q12HR PO 03/19/25 22:00 Prochlorperazine Maleate 5 mg TID PO 03/19/25 14:00 Hydromorphone HCl 2 mg Q8HR PO 03/19/25 14:00 laboratory and microbiology Laboratory Tests 03/18/25 06:18 Test 03/18/25 06:18 Range/Units Serum Glucose 94 74-106 mg/dL Assessment/Plan Acute hypoxemic respiratory failure On mechanical ventilator Fluid overload Pneumonia Atelectasis Pulmonary edema Anemia ESRD, on hemodialysis Events: Status post extubation Low oxygen requirements On room air No acute events Labs and imaging reviewed Plan: Supplemental oxygen as needed Titrate FIO2 to keep O2 saturation above 90%. Incentive spirometry Aspiration precautions Continue antibiotics Follow up cultures Bronchodilators Accu-Cheks, ISS prn. Monitor renal function HD as per nephrology Management deferred Dietary Evaluation Review Comments: 1) Initiate Nephro-Tayla @ 1 tb qd 2) If patient remains NPO > 7 days, consider EN/TPN to meet at least 75% of estimated daily needs 3) If GI route is preferred, consider Nepro CarbSteady @ 40 mL/hr goal rate as tolerated. EN regimen will provide 2222 kcals (including Propofol), 78g Pro, and 715 mL free H2O per 24 hrs. Goal rate will meet ~ 98% estimated daily energy needs and ~ 72% estimated daily protein needs 4) Advance to renal cardiac diet when medically feasible, pending ST approval 5) Follow-up with cardiology, pulmonology, and nephrology 6) Continue to monitor I&O, labs, and skin integrity Expected Outcomes/Goals: 1) patient to receive nutrition support within 7 days of NPO status 2) GI symptoms and labs to improve 3) diet to advance 4) f/u in 2-3 days Plan discussed with: Patient GERMÁN TORRES MD Mar 19, 2025 15:12
[2025-03-19] MEDS: PROCHLORPERAZINE MALEATE 10 MG TAB PO SCH (18:23)
[2025-03-19] MEDS: Nepro With Carbsteady ButterPecan 8oz Carton PO SCH (18:27)
[2025-03-19] MEDS: FAMOTIDINE 20 MG TAB PO SCH (22:10)
== END 2025-03-19 22:30 | DRG 130 ==
LOC: ER 18:33 → OVERFLOW 23:10 → ICU WEST 23:11 → EAST 03-16 19:17 → TELE-EAST 03-17 03:16
PROVIDERS: ADMIT Student in an Organized Health Care Education/Training Program; ATTEND Student in an Organized Health Care Education/Training Program
PROC: 5A1955Z Respiratory Ventilation, Greater than 96 Consecutive Hours (ICD-10-PCS; principal; 2025-02-25)
PROC: 0BH17EZ Insertion of Endotracheal Airway into Trachea, Via Natural or Artificial Opening (ICD-10-PCS; 2025-02-25)
PROC: 5A0935A Assistance with Respiratory Ventilation, Less than 24 Consecutive Hours, High Flow/Velocity Cannula (ICD-10-PCS; 2025-02-25)
PROC: 06HY33Z Insertion of Infusion Device into Lower Vein, Percutaneous Approach (ICD-10-PCS; 2025-02-25)
PROC: 0B9M8ZZ Drainage of Bilateral Lungs, Via Natural or Artificial Opening Endoscopic (ICD-10-PCS; 2025-02-26)
PROC: 02HV33Z Insertion of Infusion Device into Superior Vena Cava, Percutaneous Approach (ICD-10-PCS; 2025-02-26)
PROC: 5A1D70Z Performance of Urinary Filtration, Intermittent, Less than 6 Hours Per Day (ICD-10-PCS; 2025-02-27)
PROC: 5A1D70Z Performance of Urinary Filtration, Intermittent, Less than 6 Hours Per Day (ICD-10-PCS; 2025-03-01)
PROC: 5A1D70Z Performance of Urinary Filtration, Intermittent, Less than 6 Hours Per Day (ICD-10-PCS; 2025-03-03)
PROC: 5A1D70Z Performance of Urinary Filtration, Intermittent, Less than 6 Hours Per Day (ICD-10-PCS; 2025-03-05)
PROC: 5A1D70Z Performance of Urinary Filtration, Intermittent, Less than 6 Hours Per Day (ICD-10-PCS; 2025-03-07)
PROC: 5A1D70Z Performance of Urinary Filtration, Intermittent, Less than 6 Hours Per Day (ICD-10-PCS; 2025-03-09)
PROC: 0JH63XZ Insertion of Tunneled Vascular Access Device into Chest Subcutaneous Tissue and Fascia, Percutaneous Approach (ICD-10-PCS; 2025-03-11)
PROC: 02H633Z Insertion of Infusion Device into Right Atrium, Percutaneous Approach (ICD-10-PCS; 2025-03-11)
PROC: B5181ZA Fluoroscopy of Superior Vena Cava using Low Osmolar Contrast, Guidance (ICD-10-PCS; 2025-03-11)
PROC: B548ZZA Ultrasonography of Superior Vena Cava, Guidance (ICD-10-PCS; 2025-03-11)
PROC: 5A1D70Z Performance of Urinary Filtration, Intermittent, Less than 6 Hours Per Day (ICD-10-PCS; 2025-03-11)
PROC: 05H933Z Insertion of Infusion Device into Right Brachial Vein, Percutaneous Approach (ICD-10-PCS; 2025-03-13)
PROC: B54MZZA Ultrasonography of Right Upper Extremity Veins, Guidance (ICD-10-PCS; 2025-03-13)
PROC: 5A1D70Z Performance of Urinary Filtration, Intermittent, Less than 6 Hours Per Day (ICD-10-PCS; 2025-03-13)
PROC: 5A1D70Z Performance of Urinary Filtration, Intermittent, Less than 6 Hours Per Day (ICD-10-PCS; 2025-03-14)
PROC: 5A1D70Z Performance of Urinary Filtration, Intermittent, Less than 6 Hours Per Day (ICD-10-PCS; 2025-03-16)
PROC: 5A1D70Z Performance of Urinary Filtration, Intermittent, Less than 6 Hours Per Day (ICD-10-PCS; 2025-03-18)
DX: J96.01 Acute respiratory failure with hypoxia (principal); N17.0 Acute kidney failure with tubular necrosis; A41.1 Sepsis due to other specified staphylococcus; J81.0 Acute pulmonary edema; G92.8 Other toxic encephalopathy; I21.A1 Myocardial infarction type 2; J15.212 Pneumonia due to Methicillin resistant Staphylococcus aureus; G93.1 Anoxic brain damage, not elsewhere classified; J15.69 Pneumonia due to other Gram-negative bacteria; N18.6 End stage renal disease; I13.11 Hypertensive heart and chronic kidney disease without heart failure, with stage 5 chronic kidney disease, or end stage renal disease; I43 Cardiomyopathy in diseases classified elsewhere; E87.4 Mixed disorder of acid-base balance; E87.1 Hypo-osmolality and hyponatremia; E87.70 Fluid overload, unspecified; I16.1 Hypertensive emergency; E03.9 Hypothyroidism, unspecified; F43.10 Post-traumatic stress disorder, unspecified; E87.5 Hyperkalemia; E83.39 Other disorders of phosphorus metabolism; E88.09 Other disorders of plasma-protein metabolism, not elsewhere classified; G40.909 Epilepsy, unspecified, not intractable, without status epilepticus; J90 Pleural effusion, not elsewhere classified; G62.9 Polyneuropathy, unspecified; J15.9 Unspecified bacterial pneumonia; J81.1 Chronic pulmonary edema; F41.9 Anxiety disorder, unspecified; D64.9 Anemia, unspecified; Z99.11 Dependence on respirator [ventilator] status; Z79.82 Long term (current) use of aspirin; Z79.899 Other long term (current) drug therapy; Z88.5 Allergy status to narcotic agent; Z88.6 Allergy status to analgesic agent; Z88.8 Allergy status to other drugs, medicaments and biological substances; Z99.2 Dependence on renal dialysis; Z88.1 Allergy status to other antibiotic agents; Z80.52 Family history of malignant neoplasm of bladder; Z82.49 Family history of ischemic heart disease and other diseases of the circulatory system; Z82.0 Family history of epilepsy and other diseases of the nervous system; Z83.3 Family history of diabetes mellitus; Z80.3 Family history of malignant neoplasm of breast; Z80.1 Family history of malignant neoplasm of trachea, bronchus and lung; I69.354 Hemiplegia and hemiparesis following cerebral infarction affecting left non-dominant side
CPT/HCPCS: 31645; 36415; 36556; 36558; 36600; 70450; 71045; 74176; 76705; 77001; 80048; 80053; 80061; 80202; 81001; 82010; 82088; 82533; 82550; 82565; 82805; 82962; 83036; 83605; 83615; 83735; 83835; 84100; 84244; 84443; 84484; 85007; 85025; 85027; 85610; 85730; 86706; 86803; 86850; 86900; 86901; 87040; 87070; 87077; 87081; 87086; 87186; 87205; 87340; 90935; 92610; 93005; 93306; 93925; 93970; 93971; 93975; 94002; 94003; 94640; 94667; 94668; 95819; 97110; 97163; 99152; 99291; 99292; C1894; G0378; J1642; J2405; J2543; J2704; J3480; J3490; P9047; Q0164

== ENCOUNTER 2025-03-20 11:37 | Inpatient (IN) | payer MEDICAID ==
[~2025-03-20] VITALS: Ht 188 cm; Wt 67.6 kg
[~2025-03-20 11:37] MED LIST changes: +PROC10TA6 IM
--- NOTE | 2025-03-20 12:00 | ED.PDOC ---
Altered Mental Status HPI Comments 54-year-old male with a history of hypertension, CVA, thyroid disease, CKD brought in by EMS from [facility] with altered mental status. Patient was discharged from here last night, arriving at [facility] around midnight. Family stated to EMS that the patient had not been acting like himself since his arrival last night, characterized by inappropriate or absent answers to questions and confusion/disorientation. Family stated patient's baseline is oriented x4 and appropriately conversant. On arrival to ED, patient's heart rate is 115 and oxygen saturation is 93% on room air. When asked questions, he makes eye contact but does not verbally respond or follow commands. No additional history is available from the patient. Time Seen by MD: 11:43 Primary Care Provider: UNKNOWN Allergies: Coded Allergies: Codeine (Verified Allergy, Severe, ANAPHYLAXIS, VOMITING, 02/22/25) Mirtazapine (Verified Allergy, Severe, ANAPHYLAXIS , 02/22/25) Morphine (Verified Allergy, Severe, VOMITING, RASH, 02/22/25) Phenobarbital (Verified Allergy, Severe, ANAPHYLAXIS, 02/22/25) Tramadol (Unverified Allergy, Severe, vomiting, 02/22/25) Acetaminophen (Verified Allergy, Intermediate, RASH, NAUSEOUS, 02/22/25) Hydralazine (Verified Allergy, Intermediate, VOMITING, 02/22/25) Levetiracetam (Verified Allergy, Intermediate, DISORIENTED, LETHARGIC, VOMITING, 02/22/25) Levothyroxine (Verified Allergy, Intermediate, vomiting, 02/22/25) Methyldopa (Verified Allergy, Intermediate, VOMITING, 02/22/25) Phenytoin (Verified Allergy, Intermediate, 05/13/10) BREAKS OUT IN WELTS Prochlorperazine (Verified Allergy, Intermediate, vomiting, 02/22/25) Prazosin (Verified Allergy, Unknown, VOMITING, LETHARGY, 02/25/25) Alprazolam (Verified Adverse Reaction, Intermediate, vomiting, 02/21/25) Amlodipine (Verified Adverse Reaction, Intermediate, vomiting, 02/21/25) Ciprofloxacin (Verified Adverse Reaction, Intermediate, vomiting, 02/21/25) Clonidine (Verified Adverse Reaction, Intermediate, vomiting when taking po , 02/21/25) po makes pt vomit, can tolerate the patch Enalapril (Verified Adverse Reaction, Intermediate, vomiting, 02/21/25) Famotidine (Verified Adverse Reaction, Intermediate, VOMITING, 02/22/25) Finerenone (Verified Adverse Reaction, Intermediate, VOMITING, 02/22/25) Furosemide (Verified Adverse Reaction, Intermediate, VOMITING, 02/22/25) Gabapentin (Verified Adverse Reaction, Intermediate, vomiting, headache, 02/21/25) Hydrochlorothiazide (Verified Adverse Reaction, Intermediate, vomiting, 02/21/25) Hydrocodone (Verified Adverse Reaction, Intermediate, vomiting, headache, 02/21/25) Labetalol (Verified Adverse Reaction, Intermediate, VOMITING, 02/22/25) Losartan (Verified Adverse Reaction, Intermediate, vomiting, 02/21/25) Magnesium Oxide (Verified Adverse Reaction, Intermediate, vomiting, 02/21/25) Methocarbamol (Verified Adverse Reaction, Intermediate, VOMITING, 02/22/25) Metoprolol (Verified Adverse Reaction, Intermediate, vomiting, 02/21/25) Nifedipine (Verified Adverse Reaction, Intermediate, VOMITING, 02/22/25) Nitrofurantoin (Verified Adverse Reaction, Intermediate, VOMITING, 02/22/25) Omeprazole (Verified Adverse Reaction, Intermediate, vomiting, 02/21/25) Ondansetron (Verified Adverse Reaction, Intermediate, VOMITING, 02/22/25) Oxycodone (Verified Adverse Reaction, Intermediate, VOMITING, 02/22/25) Pantoprazole (Verified Adverse Reaction, Intermediate, vomiting, 02/21/25) Potassium Chloride (Verified Adverse Reaction, Intermediate, vomiting, 02/21/25) Rizatriptan (Verified Adverse Reaction, Intermediate, VOMITING, 02/22/25) Sucralfate (Verified Adverse Reaction, Intermediate, vomiting, 02/21/25) Sumatriptan (Verified Adverse Reaction, Intermediate, vomiting, 02/21/25) Tizanidine (Verified Adverse Reaction, Intermediate, VOMITING, LETHARGIC , 02/22/25) Trazodone (Verified Adverse Reaction, Intermediate, severe headache, 02/21/25) Uncoded Allergies: ALL B/P MEDS EXCEPT CLONIDINE (Allergy, Unknown, 02/22/25) ALL PO BP MEDSCAN TAKE CLONIDINE PATCH Home Meds Active Scripts Isosorbide Dinitrate (Isosorbide Dinitrate) 10 Mg Tab, 20 MG PO TID@06,12,18, #90 TAB Prov:HODA JAIN MD 04/22/20 Hydralazine HCl (Hydralazine HCl) 25 Mg Tab, 25 MG PO Q6HR, #120 TAB Prov:HODA JAIN MD 04/22/20 Reported Medications Prochlorperazine Maleate (Compazine) 10 Mg Tb, 10 MG IM QIDP for nausea/ vomiting, TAB 03/04/25 Levothyroxine Sodium (SYNTHROID TABLET) 50 Mcg Tb, 1 TAB PO DAILY, #30 TAB 5 Refills 03/14/21 Omeprazole (Gnp Omeprazole) 20 Mg Tab, 40 MG PO, TAB 03/14/21 Hydroxyzine Hcl (Hydroxyzine Hcl) 25 Mg Tab, 25 MG PO for 30 Days, MG 03/14/21 Potassium Chloride (Klor-Con 8) 8 Meq Tab, 8 MEQ PO, TAB 03/14/21 Furosemide (Furosemide) 40 Mg Tab, 40 MG PO DAILY for 30 Days 03/14/21 Nifedipine (Nifedipine Er) 90 Mg Tab, 1 TAB PO DAILY, #30 TAB 5 Refills 03/14/21 Labetalol Hcl (Labetalol Hcl) 300 Mg Tab, 300 MG PO for 30 Days, MG 03/14/21 Oxycodone W/ Acetaminophen (Percocet 5/325MG) 1 Tab Tb, 1 TAB PO QID, #120 TAB 03/14/21 Aspirin (Aspir-Low) 81 Mg Tab, 81 MG PO DAILY for 30 Days, MG 04/19/20 Past Medical History PAST MEDICAL HISTORY: Anxiety, CKF, CVA, HTN, Thyroid, TIA Surgical History: Appendectomy Family History Family History: Family hx of Cancer, Family hx of heart dileep Social History Smoker: Non-Smoker Alcohol: Denies ETOH Use Drugs: Denies Drug Use Lives In: Home Unable to Obtain due to: Altered Mental Status (Comprehensive systems review unobtainable due to the patient's altered mental status) Physical Exam General Appearance: No Apparent Distress HEENT: PERRL/EOMI (Pupils and face symmetric. Moist mucous membranes.), Other Neck: Full Range of Motion, Non-Tender, Normal Inspection, Supple Respiratory: Decreased Breath Sounds, No Accessory Muscle Use, No Respiratory Distress Cardiovascular: No Edema, No JVD, Tachycardia Breast Exam: Deferred Gastrointestinal: Non Tender, Soft Genitalia: Deferred Pelvic: Deferred Rectal: Deferred Extremities: Normal inspection, Normal range of motion, Non-tender, No pedal edema Neurologic: Alert, Other (Opens eyes to name. Does not verbally respond to questions. Does not follow commands. Localizes painful stimulus.) Cerebellar Function: NOT DONE Reflexes: NOT DONE Skin: Dry, Pallor, Warm Lymphatic: NOT DONE Was a procedure done? Was a procedure done?: No Differential Diagnosis (ALOC) Differential Diagnosis: Dehydration, Hypoglycemia, Encephalopathy, Meningitis, Sepsis, CVA, SAH, Heart Failure X-Ray, Labs, Meds, VS Vital Signs Date Time Temp Pulse Resp B/P (MAP) Pulse Ox O2 Delivery O2 Flow Rate FiO2 03/20/25 13:58 114 20 163/94 03/20/25 12:20 98.4 116 20 163/94 (117) 96 98.4 03/20/25 11:37 116 03/20/25 11:37 98.4 110 14 170/86 94 98.4 Lab Test 03/20/25 15:15 03/20/25 13:39 03/20/25 12:05 Range/Units Troponin I High Sensitivity Pending 134 *H 137 *H </=54 ng/L White Blood Count 7.9 # 4.4-10.8 10^3/uL Red Blood Count 2.99 L 4.5-5.90 10^6/uL Hemoglobin 9.3 L 13.5-17.5 g/dL Hematocrit 27.2 #L 41.0-53.0 % Mean Corpuscular Volume 90.8 80.0-100.0 fL Mean Corpuscular Hemoglobin 31.2 28.0-32.0 pg Mean Corpuscular Hemoglobin Concent 34.3 32.0-36.0 g/dL Red Cell Distribution Width 15.0 H 11.8-14.3 % Platelet Count 397 140-450 10^3/uL Mean Platelet Volume 6.3 L 6.9-10.8 fL Neutrophils (%) (Auto) 76.0 37.0-80.0 % Lymphocytes (%) (Auto) 11.5 10.0-50.0 % Monocytes (%) (Auto) 7.2 0.0-12.0 % Eosinophils (%) (Auto) 2.6 0.0-7.0 % Basophils (%) (Auto) 2.7 H 0.0-2.0 % Neutrophils # (Auto) 6.0 1.6-8.6 10 ^3/uL Lymphocytes # (Auto) 0.9 0.4-5.4 10 ^3/uL Monocytes # (Auto) 0.6 0-1.3 10 ^3/uL Eosinophils # (Auto) 0.2 0-0.8 10 ^3/uL Basophils # (Auto) 0.2 0-0.2 10 ^3/uL Nucleated Red Blood Cells 0.1 % Prothrombin Time 14.4 H 9.3-11.8 sec Prothrombin Time INR 1.41 H 0.9-1.15 Activated Partial Thromboplast Time 30.0 24.5-34.5 SEC Sodium Level 140 136-145 mmol/L Potassium Level 4.2 3.5-5.1 mmol/L Chloride Level 100 98-107 mmol/L Carbon Dioxide Level 24 20-31 mmol/L Anion Gap 16 H 5-15 Blood Urea Nitrogen 36 H 9-23 mg/dL Creatinine 9.16 #H 0.700-1.30 mg/dL Glomerular Filtration Rate Calc 6 >90 mL/min BUN/Creatinine Ratio 3.9 L 10.0-20.0 Serum Glucose 87 74-106 mg/dL Lactic Acid Level 0.9 0.4-2.0 mmol/L Calcium Level 9.4 8.7-10.4 mg/dL Total Bilirubin 0.3 0.2-1.0 mg/dL Aspartate Amino Transferase (AST) 36 13-40 U/L Alanine Aminotransferase (ALT) 69 H 7-40 U/L Alkaline Phosphatase 88 46-116 U/L B-Type Natriuretic Peptide 507.44 0-100 pg/mL Total Protein 5.9 5.7-8.2 g/dL Albumin 3.8 3.2-4.8 g/dL Plasma/Serum Blood Alcohol < 3.0 <10 mg/dL Current Medications Medications (Trade) Dose Ordered Sig/Shayan Route Start Time Stop Time Status Last Admin Hydromorphone HCl (Dilaudid Injection) 0.25 mg ONCE ONCE IV 03/20/25 13:50 03/20/25 13:51 DC 03/20/25 13:58 [facility] [id number] [place] [id number] Ph: [phone] DIAGNOSTIC IMAGING Diagnostic Imaging Report : [id number] Signed PATIENT: MARGARET MARTINEZ ACCT: [id number] UNIT: [id number] : 1970 LOC: ER ROOM / BED: / AGE / SEX: 54 / M ADM STATUS: REG ER SERVICE 1149 ORDERING PHYSICIAN: STEPHANI CLANCY MD PROCEDURE(s): HWOCT - HEAD WITHOUT CONTRAST REASON: Altered mental status ORDER NUMBER(s): [id number], ACCESSION NUMBER(s): [id number] CLINICAL HISTORY: Altered mental status TECHNIQUE: Helical scanning was performed of the head from the skull base to the vertex. Multiplanar reconstructions were performed. This exam was performed according to our departmental dose optimization program. Up-to-date CT equipment and radiation dose reduction techniques are utilized as appropriate. CTDI 61 DLP 1155 COMPARISON: CT HEAD WITHOUT CONTRAST on DOS: 03/08/25, CT HEAD WITHOUT CONTRAST on DOS: 02/21/25, CT HEAD WITHOUT CONTRAST on DOS: 10/27/24, CT HEAD WITHOUT CONTRAST on DOS: 01/23/23 FINDINGS: There is no evidence for acute intracranial hemorrhage, acute ischemic changes, mass, mass effect, or extra-axial fluid collection. There is no hydrocephalus or midline shift. There is no effacement of the cerebral sulci and basal subarachnoid cisterns. The rossi-white matter differentiation is well maintained. There is mild rain volume loss and chronic small vessel ischemic changes. The imaged paranasal sinuses are clear. IMPRESSION: NO ACUTE INTRACRANIAL ABNORMALITY SEEN. ATED BY: ROMELIA MINOR MD DICTATED DATE/TIME: 03/20/25 1320 SIGNED BY: ROMELIA MINOR MD SIGNED DATE/TIME: 03/20/25 132 CC: [address] [address] Ph: [phone] DIAGNOSTIC IMAGING Diagnostic Imaging Report : [id number] Signed PATIENT: MARGARET MARTINEZ ACCT: [id number] UNIT: [id number] : 1970 LOC: ER ROOM / BED: / AGE / SEX: 54 / M ADM STATUS: REG ER SERVICE 1149 ORDERING PHYSICIAN: STEPHANI CLANCY MD PROCEDURE(s): CXRP - CHEST PORTABLE REASON: Hypoxia, altered mental status ORDER NUMBER(s): [id number], ACCESSION NUMBER(s): [id number] EXAM: XY CHEST PORTABLE Indication: Hypoxia, altered mental status Technique: Single frontal view of the chest was obtained Comparison: XY CHEST XRAY 1 VIEW on DOS: 03/12/25, XY CHEST XRAY 1 VIEW on DOS: 03/08/25, XY CHEST XRAY 1 VIEW on DOS: 03/07/25, XY CHEST PORTABLE on DOS: 03/06/25, XY CHEST PORTABLE on DOS: 03/05/25 FINDINGS: Lines and Tubes: Right central venous catheter tip projects over the superior vena cava. Lungs: No focal consolidation. Pleura: No effusion. No pneumothorax. Cardiomediastinal contours: Unremarkable Bones: No acute osseous abnormality. IMPRESSION: No acute cardiopulmonary disease. ATED BY: FROYLAN MOSLEY MD DICTATED DATE/TIME: 03/20/25 124 SIGNED BY: FROYLAN MOSLEY MD SIGNED DATE/TIME: 03/20/25 1243 CC: X-Ray, Labs, Meds, VS Comment 54-year-old male with history of hypertension, CVA/TIA, CKD and thyroid disease brought in by EMS from [facility] acute with altered mental status Vitals remarkable for heart rate 115, oxygen saturation 93% on room air-hypoxic Exam remarkable for tachycardia, diminished breath sounds, eye opening when name is called, no verbal answers to questions, does not follow commands Rhythm strip independently interpreted by me: Sinus tach, rate 115, no ectopy. CT head and chest x-ray unremarkable CBC unremarkable, metabolic panel remarkable for BUN 36, creatinine 9.16, serial troponins 137 and 134, BNP 507.44, lactate normal Patient treated with the following in the ED: Cefepime 2 g IV, vancomycin per pharmacy IV. 30 cc/kilogram sepsis bolus was not administered due to recent admission with pulmonary edema and hypertensive crisis. Aggressive fluid hydration could cause harm. On re-evaluation, patient's neurologic status is unchanged. Vitals were stable. Plan is to admit the patient for IV antibiotics, brain MRI, neuro evaluation. Time of 1ST Reevaluation: 12:00 Reevaluation 1ST: Unchanged Patient Education/Counseling: Other (Patient confused) Family Education/Counseling: No Family Present SEPSIS Sepsis Screen Date sepsis recognized/suspect: Mar 20, 2025 Time Sepsis recognized/suspect: 11:50 IV fluid challenge completed?: No SEPSIS EXCLUSION NOTE: 30 cc/kilogram fluid bolus was not administered due to recent admission with hypertensive crisis and pulmonary edema. Aggressive fluid hydration could cause harm. Physician Orders Electrocardigram (03/20/25 11:49) Urinalysis (03/20/25 11:49) Chest Portable (03/20/25 11:49) Accucheck (03/20/25 11:49) Blood Culture (03/20/25 11:49) Cefepime 1gm/ 50ml (Maxipime 1gm/50ml) (03/20/25 14:00) Notify Md If Map <65 Or Bp<90 (03/20/25 11:49) If Map<65 Start Vasopressor (03/20/25 11:49) Sepsis Reassesment After Fluid (03/20/25 12:49) Head Without Contrast (03/20/25 11:49) Troponin-I Hs (03/20/25 14:55) Instructor Painting (03/20/25 12:01) Hemodialysis Orders (03/21/25 07:00) Dialysis Nursing Message (03/21/25 07:00) Heparin Sodium (Porcine) (03/21/25 07:00) Heparin Sodium (Porcine) (03/21/25 07:00) Heparin Sodium (Porcine) (03/21/25 07:00) Sodium Chloride 0.9% (03/21/25 07:00) Vital Signs Date Time Temp Pulse Resp B/P (MAP) Pulse Ox O2 Delivery O2 Flow Rate FiO2 03/20/25 13:58 114 20 163/94 03/20/25 12:20 98.4 116 20 163/94 (117) 96 98.4 03/20/25 11:37 116 03/20/25 11:37 98.4 110 14 170/86 94 98.4 Laboratory Tests Test 03/20/25 12:05 Lactic Acid Level 0.9 mmol/L (0.4-2.0) White Blood Count 7.9 10^3/uL (4.4-10.8) # Medications Medications Dose Ordered Sig/Shayan Route Start Time Stop Time Status Last Admin Dose Admin Hydromorphone HCl 0.25 mg ONCE ONCE IV 03/20/25 13:50 03/20/25 13:51 DC 03/20/25 13:58 Reassessment Post Fluid SEPSIS FOCUS EXAM(REASSESSMENT Sepsis reassessment focused exam completed. Date: 03/20/25 Time 16:06 Departure 1 Departure Time of Disposition: 15:00 Impression: Primary Impression: Metabolic encephalopathy Additional Impressions: Sepsis Qualified Codes: A41.9 - Sepsis, unspecified organism Elevated troponin Disposition: ADMITTED INPATIENT Admit to: [facility] Condition: Guarded Critical Care Note Critical Care Time?: Yes (35 min-critical care time only) Critical care comment: Critical care time including multiple bedside re-evaluations, review of lab and imaging studies, and discussion of the case with the admitting provider. Patient is high risk for hemodynamic, neurologic and/or metabolic decompensation. Stability Stability form required: No Heart Score Heart Score: Heart Score Response (Comments) Value History N/A 0 EKG N/A 0 Age N/A 0 Risk Factors N/A 0 Troponin N/A 0 Total 0 I personally scribed for STEPHANI CLANCY MD ([email or web address]) on 03/20/25 at 13:34. Electronically submitted by Merrick Elizalde ([email or web address]). STEPHANI CLANCY MD Mar 20, 2025 12:00
[2025-03-20 12:42] LABS: Hematocrit 27.2 % (41.0-53.0); Hemoglobin 9.3 g/dL (13.5-17.5); Mean Corpuscular Hemoglobin 31.2 pg (28.0-32.0); Mean Corpuscular Volume 90.8 fL (80.0-100.0); Nucleated Red Blood Cells % 0.1 %
--- NOTE | 2025-03-20 12:46 | DVH ---
EXAM: XY CHEST PORTABLE Indication: Hypoxia, altered mental status Technique: Single frontal view of the chest was obtained Comparison: XY CHEST XRAY 1 VIEW on DOS: 03/12/25, XY CHEST XRAY 1 VIEW on DOS: 03/08/25, XY CHEST XRAY 1 VIEW on DOS: 03/07/25, XY CHEST PORTABLE on DOS: 03/06/25, XY CHEST PORTABLE on DOS: 03/05/25 FINDINGS: Lines and Tubes: Right central venous catheter tip projects over the superior vena cava. Lungs: No focal consolidation. Pleura: No effusion. No pneumothorax. Cardiomediastinal contours: Unremarkable Bones: No acute osseous abnormality. IMPRESSION: No acute cardiopulmonary disease.
[2025-03-20 12:57] LABS: INR 1.41 (0.9-1.15); Partial Thromboplastin Time 30.0 SEC (24.5-34.5); Prothrombin Time 14.4 sec (9.3-11.8)
[2025-03-20 12:59] LABS: Albumin 3.8 g/dL (3.2-4.8); Alkaline Phosphatase 88 U/L (46-116); Anion Gap 16 (5-15); BUN/Creatinine Ratio 3.9 (10.0-20.0); Calcium 9.4 mg/dL (8.7-10.4); Carbon Dioxide 24 mmol/L (20-31); Chloride 100 mmol/L (98-107); Glucose 87 mg/dL (74-106); Potassium 4.2 mmol/L (3.5-5.1); Sodium 140 mmol/L (136-145); Total Protein 5.9 g/dL (5.7-8.2)
[2025-03-20 13:00] LABS: Alanine Aminotransferase 69 U/L (7-40); Bilirubin, Total 0.3 mg/dL (0.2-1.0); Blood Urea Nitrogen 36 mg/dL (9-23)
--- NOTE | 2025-03-20 13:22 | DVH ---
CLINICAL HISTORY: Altered mental status TECHNIQUE: Helical scanning was performed of the head from the skull base to the vertex. Multiplanar reconstructions were performed. This exam was performed according to our departmental dose optimizat ion program. Up-to-date CT equipment and radiation dose reduction techniques are utilized as appropri ate. CTDI 61 DLP 1155 COMPARISON: CT HEAD WITHOUT CONTRAST on DOS: 03/08/25, CT HEAD WITHOUT CONTRAST on DOS: 02/21/25, CT HEA D WITHOUT CONTRAST on DOS: 10/27/24, CT HEAD WITHOUT CONTRAST on DOS: 01/23/23 FINDINGS: There is no evidence for acute intracranial hemorrhage, acute ischemic changes, mass, mass effect, or extra-axial fluid collection. There is no hydrocephalus or midline shift. There is no effacement of the cerebral sulci and basal subarachnoid cisterns. The rossi-white matter differentiation is well jodie ntained. There is mild rain volume loss and chronic small vessel ischemic changes. The imaged paranasal sinuses are clear. IMPRESSION: NO ACUTE INTRACRANIAL ABNORMALITY SEEN.
[2025-03-20] MEDS: ONDANSETRON HCL 4 MG/2 ML VIAL IV ONE (13:52)
[2025-03-20] MEDS: HYDROmorphone HCL 2 MG/ML VL/or syr IV ONE (13:58)
--- NOTE | 2025-03-20 16:47 | DVHHP2 ---
History of Present Illness Reason for Visit: ams History of Present Illness 54-year-old male with a past medical history of CVA, hypertension, thyroid disease, CKD, TIA, appendectomy, C4C6 neck fracture with chronic pain, and migraines was brought from [facility] after being discharged from the hospital last night. He arrived at the facility around midnight, and per family, has not been acting like himself displaying confusion, disori entation, absent or inappropriate responses to questions, and decreased verbal communication compared to his baseline alert and oriented status. In the ED, he was tachycardic at 115 and oxygen saturation was 93% on room air. He made eye contact but did not follow commands. Recent admission on 02/21/25 was for elevated blood pressure, hypoxic respiratory failure requiring intubation for several days, metabolic encephalopathy, resistant hypertension, and ESRD. Post- extubation, patient remained nonverbal and was reportedly diagnosed with post- ICU delirium. At the rehab facility, nursing staff noted combativeness, attempts to get out of bed, shakiness, and glassy eyes. reports continued decline and inability to converse, with last dialysis on Sunday ([facility]) and scheduled for today. Labs in ED revealed Hgb 9.3 Hct 27.2 elevated troponin downtrending from 5273 on last admission to 134 currently, lactate 0.9, BNP 507, creatinine 9.16 , BUN 36, anion gap 16, PT/INR 1.14, negative alcohol level. CT brain showed no acute abnormality; chest X-ray was unremarkable. Echocardiogram from 02/22/25 showed EF 65% with normal findings. Linda ([phone]) provided history at bedside, also noting neurology follow-up with Dr. Cesar, who mentioned small vessel disease. will readmit to tele, Past Medical History See HPI above Past Surgical History See HPI above Family History Unable to assess family history Past Social History Unable to assess social history patient was in shelter facility Review of Systems Constitutional: No: Fever, Chills, Sweats, Weakness, Malaise, Other Eyes: No: Pain, Vision change, Conjunctivae inflammation, Eyelid inflammation, Other, Redness ENT: No: Ear pain, Ear discharge, Nose pain, Nose discharge, Nose congestion, Mouth pain, Mouth swelling, Throat pain, Throat swelling, Other Respiratory: No: Cough, Dry, Shortness of breath, SOB with excertion, Wheezing, Hemoptysis, Pleuritic Pain, Sputum, Wheezing, Other Cardiovascular: No: Chest Pain, Palpitations, Orthopnea, Paroxysmal Noc. Dyspnea, Edema, Lt Headedness, Other Gastrointestinal: No: Nausea, Vomiting, Abdominal Pain, Diarrhea, Constipation, Melena, Hematochezia, Other Genitourinary: No Dysuria, No Frequency, No Incontinence, No Hematuria, No Retention, No Other Musculoskeletal: No: other, neck pain, shoulder pain, arm pain, back pain, hand pain, leg pain, foot pain Skin: No: Rash, Lesions, Jaundice, Bruising, Other Neurological: Confusion; No: Weakness, Numbness, Incoordination, Change in speech, Seizures, Other Allergies: Coded Allergies: Codeine (Verified Allergy, Severe, ANAPHYLAXIS, VOMITING, 02/22/25) Mirtazapine (Verified Allergy, Severe, ANAPHYLAXIS , 02/22/25) Morphine (Verified Allergy, Severe, VOMITING, RASH, 02/22/25) Phenobarbital (Verified Allergy, Severe, ANAPHYLAXIS, 02/22/25) Tramadol (Unverified Allergy, Severe, vomiting, 02/22/25) Acetaminophen (Verified Allergy, Intermediate, RASH, NAUSEOUS, 02/22/25) Hydralazine (Verified Allergy, Intermediate, VOMITING, 02/22/25) Levetiracetam (Verified Allergy, Intermediate, DISORIENTED, LETHARGIC, VOMITING, 02/22/25) Levothyroxine (Verified Allergy, Intermediate, vomiting, 02/22/25) Methyldopa (Verified Allergy, Intermediate, VOMITING, 02/22/25) Phenytoin (Verified Allergy, Intermediate, 05/13/10) BREAKS OUT IN WELTS Prochlorperazine (Verified Allergy, Intermediate, vomiting, 02/22/25) Prazosin (Verified Allergy, Unknown, VOMITING, LETHARGY, 02/25/25) Alprazolam (Verified Adverse Reaction, Intermediate, vomiting, 02/21/25) Amlodipine (Verified Adverse Reaction, Intermediate, vomiting, 02/21/25) Ciprofloxacin (Verified Adverse Reaction, Intermediate, vomiting, 02/21/25) Clonidine (Verified Adverse Reaction, Intermediate, vomiting when taking po , 02/21/25) po makes pt vomit, can tolerate the patch Enalapril (Verified Adverse Reaction, Intermediate, vomiting, 02/21/25) Famotidine (Verified Adverse Reaction, Intermediate, VOMITING, 02/22/25) Finerenone (Verified Adverse Reaction, Intermediate, VOMITING, 02/22/25) Furosemide (Verified Adverse Reaction, Intermediate, VOMITING, 02/22/25) Gabapentin (Verified Adverse Reaction, Intermediate, vomiting, headache, 02/21/25) Hydrochlorothiazide (Verified Adverse Reaction, Intermediate, vomiting, 02/21/25) Hydrocodone (Verified Adverse Reaction, Intermediate, vomiting, headache, 02/21/25) Labetalol (Verified Adverse Reaction, Intermediate, VOMITING, 02/22/25) Losartan (Verified Adverse Reaction, Intermediate, vomiting, 02/21/25) Magnesium Oxide (Verified Adverse Reaction, Intermediate, vomiting, 02/21/25) Methocarbamol (Verified Adverse Reaction, Intermediate, VOMITING, 02/22/25) Metoprolol (Verified Adverse Reaction, Intermediate, vomiting, 02/21/25) Nifedipine (Verified Adverse Reaction, Intermediate, VOMITING, 02/22/25) Nitrofurantoin (Verified Adverse Reaction, Intermediate, VOMITING, 02/22/25) Omeprazole (Verified Adverse Reaction, Intermediate, vomiting, 02/21/25) Ondansetron (Verified Adverse Reaction, Intermediate, VOMITING, 02/22/25) Oxycodone (Verified Adverse Reaction, Intermediate, VOMITING, 02/22/25) Pantoprazole (Verified Adverse Reaction, Intermediate, vomiting, 02/21/25) Potassium Chloride (Verified Adverse Reaction, Intermediate, vomiting, 02/21/25) Rizatriptan (Verified Adverse Reaction, Intermediate, VOMITING, 02/22/25) Sucralfate (Verified Adverse Reaction, Intermediate, vomiting, 02/21/25) Sumatriptan (Verified Adverse Reaction, Intermediate, vomiting, 02/21/25) Tizanidine (Verified Adverse Reaction, Intermediate, VOMITING, LETHARGIC , 02/22/25) Trazodone (Verified Adverse Reaction, Intermediate, severe headache, 02/21/25) Uncoded Allergies: ALL B/P MEDS EXCEPT CLONIDINE (Allergy, Unknown, 02/22/25) ALL PO BP MEDSCAN TAKE CLONIDINE PATCH Medications Current Medications Medications Dose Ordered Sig/Shayan Route Start Time Stop Time Status Last Admin Dose Admin Cefepime HCl 50 ml @ 12.5 mls/hr HS IV 03/20/25 22:00 Exam Vital Signs Vital Signs Date Time Temp Pulse Resp B/P (MAP) Pulse Ox O2 Delivery O2 Flow Rate FiO2 03/20/25 13:58 114 20 163/94 03/20/25 12:20 98.4 96 98.4 General Appearance: Alert, Other (Nonverbal no distress noted) HEENT: Atraumatic, PERRLA, EOMI, Mucous membr. moist/pink Respiratory: Clear to auscultation, Normal air movement Cardiovascular: Regular rate, Normal S1, Normal S2, No murmurs Abdominal: Normal bowel sounds, Soft, No tenderness, No hepatospenomegaly, No masses Extremities: No clubbing, No cyanosis, Normal pulses, No tenderness/swelling, Other (The edema to bilateral hands) Skin: No rashes, No breakdown, No significant lesion Neuro: Other (Neuro nonfocal) Labs/Xrays CT scan of the brain unremarkable Chest x-ray unremarkable I reviewed labs, imaging CT scan abdomen pelvis, EKG and all diagnostic studies on this patient from ED records and the medical chart Labs Test 03/20/25 15:15 03/20/25 12:05 Range/Units Troponin I High Sensitivity 134 *H </=54 ng/L White Blood Count 7.9 # 4.4-10.8 10^3/uL Red Blood Count 2.99 L 4.5-5.90 10^6/uL Hemoglobin 9.3 L 13.5-17.5 g/dL Hematocrit 27.2 #L 41.0-53.0 % Mean Corpuscular Volume 90.8 80.0-100.0 fL Mean Corpuscular Hemoglobin 31.2 28.0-32.0 pg Mean Corpuscular Hemoglobin Concent 34.3 32.0-36.0 g/dL Red Cell Distribution Width 15.0 H 11.8-14.3 % Platelet Count 397 140-450 10^3/uL Mean Platelet Volume 6.3 L 6.9-10.8 fL Neutrophils (%) (Auto) 76.0 37.0-80.0 % Lymphocytes (%) (Auto) 11.5 10.0-50.0 % Monocytes (%) (Auto) 7.2 0.0-12.0 % Eosinophils (%) (Auto) 2.6 0.0-7.0 % Basophils (%) (Auto) 2.7 H 0.0-2.0 % Neutrophils # (Auto) 6.0 1.6-8.6 10 ^3/uL Lymphocytes # (Auto) 0.9 0.4-5.4 10 ^3/uL Monocytes # (Auto) 0.6 0-1.3 10 ^3/uL Eosinophils # (Auto) 0.2 0-0.8 10 ^3/uL Basophils # (Auto) 0.2 0-0.2 10 ^3/uL Nucleated Red Blood Cells 0.1 % Prothrombin Time 14.4 H 9.3-11.8 sec Prothrombin Time INR 1.41 H 0.9-1.15 Activated Partial Thromboplast Time 30.0 24.5-34.5 SEC Sodium Level 140 136-145 mmol/L Potassium Level 4.2 3.5-5.1 mmol/L Chloride Level 100 98-107 mmol/L Carbon Dioxide Level 24 20-31 mmol/L Anion Gap 16 H 5-15 Blood Urea Nitrogen 36 H 9-23 mg/dL Creatinine 9.16 #H 0.700-1.30 mg/dL Glomerular Filtration Rate Calc 6 >90 mL/min BUN/Creatinine Ratio 3.9 L 10.0-20.0 Serum Glucose 87 74-106 mg/dL Lactic Acid Level 0.9 0.4-2.0 mmol/L Calcium Level 9.4 8.7-10.4 mg/dL Total Bilirubin 0.3 0.2-1.0 mg/dL Aspartate Amino Transferase (AST) 36 13-40 U/L Alanine Aminotransferase (ALT) 69 H 7-40 U/L Alkaline Phosphatase 88 46-116 U/L B-Type Natriuretic Peptide 507.44 0-100 pg/mL Total Protein 5.9 5.7-8.2 g/dL Albumin 3.8 3.2-4.8 g/dL Plasma/Serum Blood Alcohol < 3.0 <10 mg/dL SEPSIS Sepsis Screen Date sepsis recognized/suspect: Mar 20, 2025 Time Sepsis recognized/suspect: 11:50 Recent Procedure: No On Antibiotic Therapy: No Respiratory Rate >20: No Heart Rate >90: Yes Temp<36 C (96.8 F) or >38.3 C: No SBP <90 or MAP <65 mmHG: No New Acute Mental Status Change: No Is the patient on CPAP, BIPAP,: No IV fluid challenge completed?: No Physician Orders Electrocardigram (03/20/25 11:49) Urinalysis (03/20/25 11:49) Chest Portable (03/20/25 11:49) Accucheck (03/20/25 11:49) Blood Culture (03/20/25 11:49) Cefepime 1gm/ 50ml (Maxipime 1gm/50ml) (03/20/25 22:00) Notify Md If Map <65 Or Bp<90 (03/20/25 11:49) If Map<65 Start Vasopressor (03/20/25 11:49) Sepsis Reassesment After Fluid (03/20/25 12:49) Head Without Contrast (03/20/25 11:49) Metal Finisher (03/20/25 12:01) Hemodialysis Orders (03/21/25 07:00) Dialysis Nursing Message (03/21/25 07:00) Heparin Sodium (Porcine) (03/21/25 07:00) Heparin Sodium (Porcine) (03/21/25 07:00) Heparin Sodium (Porcine) (03/21/25 07:00) Sodium Chloride 0.9% (03/21/25 07:00) Vital Signs Date Time Temp Pulse Resp B/P (MAP) Pulse Ox O2 Delivery O2 Flow Rate FiO2 03/20/25 13:58 114 20 163/94 03/20/25 12:20 98.4 116 20 163/94 (117) 96 98.4 03/20/25 11:37 116 03/20/25 11:37 98.4 110 14 170/86 94 98.4 Laboratory Tests Test 03/20/25 12:05 Lactic Acid Level 0.9 mmol/L (0.4-2.0) White Blood Count 7.9 10^3/uL (4.4-10.8) # Medications Medications Dose Ordered Sig/Shayan Route Start Time Stop Time Status Last Admin Dose Admin Hydromorphone HCl 0.25 mg ONCE ONCE IV 03/20/25 13:50 03/20/25 13:51 DC 03/20/25 13:58 0.25 MG Assessment/Plan Assessment/Plan 54 yr old male with Acute encephalopathy of unclear etiology in a patient with multiple comorbidities admitted for diagnostic workup and management. Acute encephalopathy, unclear etiology ct brain negative cxr normal Admit to telemetry for close neurologic monitoring. Order UA with reflex culture, ammonia, Monitor for seizure activity. ordered vanco and cefepime History of CVA/tia No acute changes on CT brain. Continue secondary stroke prevention as appropriate. Elevated troponin Downtrending; no ischemic symptoms or ECG changes. Likely demand ischemia; monitor troponin and telemetry. End-stage renal disease Baseline creatinine; nephrology consult for dialysis schedule. Hypertension Monitor and resume home antihypertensives when stable. CHRONIC PROBLEM LIST Hypertension Thyroid disease CKD/ESRD CVA history Hypertension ESRD CVA TIA Chronic neck fracture C4C6 Chronic pain Migraine FEN/PPx: Fluids: Maintain euvolemia; avoid overload in ESRD. Electrolytes: Daily monitoring; replete as needed. Nutrition: Renal diet. DVT prophylaxis: Heparin SQ GI prophylaxis: PPI no indicated no hx of gerds or gi bleed Disposition: Admit to telemetry for encephalopathy workup, hemodynamic monitoring, and coordination with nephrology for ongoing dialysis needs. Plan discussed with: Spouse Date of Service: Mar 20, 2025 Billing Provider: RACHEL RAHMAN DNP Common Visit Codes: [id number] INP/OBS CARE (HIGH) RACHEL RHAMAN DNP Mar 20, 2025 16:47
[2025-03-20] MEDS: CEFEPIME 1GM/ 50ML 50 ML IV ONE (16:57)
[2025-03-20] MEDS ORDERED: DOCUSATE SOD 100 MG CAP PO PRN (17:30)
[2025-03-20] MEDS ORDERED: NITROGLYCERIN 0.4 MG SL TAB SL PRN (17:30)
[2025-03-20] MEDS ORDERED: ONDANSETRON HCL 4 MG/2 ML VIAL IV PRN (17:30)
[2025-03-20 17:35] LABS: Urine Protein, UAD 1+ (Negative)
[2025-03-20] MEDS: OXYCODONE W/ ACETAMINOPHEN 5/325MG TABLET PO SCH (18:00)
[2025-03-20] MEDS: VANCOMYCIN 1GM/250ML KIT 250 ML IV ONE (19:00)
[2025-03-20] MEDS: VANCOMYCIN 1GM/200ML PM 200 ML IV ONE (19:32)
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
--- NOTE | 2025-03-20 19:44 | ECG ---
[facility] Test Date: 2025-03-20 Test Time: 11:36:57 Pat Name: MARGARET MARTINEZ Department: ED Room: 0203T Gender: M Gore Maker: LEANDRO : 1970 Requested By: STEPHANI CALLEJAS Order Number: [id number] Reading MD: Charles Abreu Measurements Intervals Sidney Rate: 116 P: 44 OK: 146 QRS: 110 QRSD: 89 T: -34 QT: 340 QTc: 473 Interpretive Statements Sinus tachycardia Probable left atrial enlargement Anterior infarct, old Abnormal T, consider ischemia, inferior leads Electronically Signed On 03-23-2025 22:49:26 PDT by Charles Abreu Please click the below link to view image of tracing.
[2025-03-20] MEDS: CEFEPIME 1GM/ 50ML 50 ML IV SCH (22:00)
[2025-03-21] VITALS (11 sets, daily range): BP systolic 127–157; BP diastolic 79–98; PULSE 104–115; RESP 16–19; TEMP 98.1–99.3; O2SAT 92–98
[2025-03-21] MEDS: ISOSORBIDE DINITRATE 10 MG TAB PO SCH (05:37)
[2025-03-21] MEDS ORDERED: LEVOTHYROXINE SODIUM 50 MCG TAB PO SCH (06:00)
[2025-03-21 07:14] LABS: Hematocrit 27.3 % (41.0-53.0); Hemoglobin 9.3 g/dL (13.5-17.5); Mean Corpuscular Hemoglobin 31.1 pg (28.0-32.0); Mean Corpuscular Volume 91.3 fL (80.0-100.0); Nucleated Red Blood Cells % 0.1 %
[2025-03-21 07:34] LABS: Albumin 3.9 g/dL (3.2-4.8); Alkaline Phosphatase 90 U/L (46-116); Anion Gap 18 (5-15); BUN/Creatinine Ratio 4.0 (10.0-20.0); Bilirubin, Total 0.4 mg/dL (0.2-1.0); Calcium 9.7 mg/dL (8.7-10.4); Carbon Dioxide 23 mmol/L (20-31); Chloride 99 mmol/L (98-107); Glucose 91 mg/dL (74-106); Potassium 4.6 mmol/L (3.5-5.1); Sodium 140 mmol/L (136-145); Total Protein 6.0 g/dL (5.7-8.2)
[2025-03-21 07:41] LABS: Alanine Aminotransferase 68 U/L (7-40); Blood Urea Nitrogen 42 mg/dL (9-23)
--- NOTE | 2025-03-21 09:44 | DVHPN2 ---
Subjective Patient encephalopathic Reviewed: Care Plan, H&P, Labs, Medications Changes from previous H/P or p: No Changes General: Per HPI Eyes: No Pain, No Vision change, No Conjunctivae inflammation, No Eyelid inflammation, No Other, No Redness ENT: No Ear pain, No Ear discharge, No Nose pain, No Nose discharge, No Nose congestion, No Mouth pain, No Mouth swelling, No Throat pain, No Throat swelling, No Other Cardiovascular: No Chest Pain, No Palpitations, No Orthopnea, No Paroxysmal Noc. Dyspnea, No Edema, No Lt Headedness, No Other Respiratory: No Cough, No Dry, No Shortness of breath, No SOB with excertion, No Wheezing, No Hemoptysis, No Pleuritic Pain, No Sputum, No Other Gastrointestinal: No Nausea, No Vomiting, No Abdominal Pain, No Diarrhea, No Constipation, No Melena, No Hematochezia, No Other Genitourinary: No Dysuria, No Frequency, No Incontinence, No Hematuria, No Retention, No Other Musculoskeletal: No other, No neck pain, No shoulder pain, No arm pain, No back pain, No hand pain, No leg pain, No foot pain Skin: No Rash, No Lesions, No Jaundice, No Bruising, No Other Objective Vitals Vital Signs Date Time Temp Pulse Resp B/P (MAP) Pulse Ox O2 Delivery O2 Flow Rate FiO2 03/21/25 09:38 98.3 107 17 127/81 (96) 95 98.3 03/20/25 19:55 Room Air* 0 21 Intake/Output Intake and Output 03/21/25 07:00 Intake Total 50 ml Balance 50 ml Intake IV Total 50 ml General Appearance: Alert, Other (Patient encephalopathic) HEENT: Atraumatic, PERRLA Lungs: Clear to auscultation, Normal air movement Cardiovascular: Normal S1, Normal S2 Abdomen: Normal bowel sounds, Soft, No tenderness Musculoskeletal: Other (Unable to follow commands) Skin: Dry, Intact Medications Current Medications Medications Dose Ordered Sig/Shayan Route Start Time Stop Time Status Last Admin Dose Admin Cefepime HCl 50 ml @ 12.5 mls/hr HS IV 03/20/25 22:00 Aspirin 81 mg DAILY PO 03/21/25 10:00 Hydralazine HCl 25 mg Q6HR PO 03/20/25 18:00 Hold Isosorbide Dinitrate 20 mg TID@06,12,18 PO 03/20/25 18:00 Levothyroxine Sodium 50 mcg DAILY@0600 PO 03/21/25 06:00 Hold Oxycodone/ Acetaminophen 1 tab QID PO 03/20/25 18:00 Hold Patient Own Medication 1 tab DAILY PO 03/21/25 10:00 Future Hold Ondansetron HCl 4 mg Q4HP PRN IV 03/20/25 17:30 Hold Docusate Sodium 100 mg BIDPRN PRN PO 03/20/25 17:30 Nitroglycerin 0.4 mg Q5MINP PRN SL 03/20/25 17:30 Laboratory Results Laboratory Tests 03/21/25 06:18 Chemistry Test 03/20/25 12:05 03/21/25 06:18 Albumin 3.8 g/dL (3.2-4.8) 3.9 g/dL (3.2-4.8) Calcium Level 9.4 mg/dL (8.7-10.4) 9.7 mg/dL (8.7-10.4) Total Protein 5.9 g/dL (5.7-8.2) 6.0 g/dL (5.7-8.2) Coagulation Test 03/20/25 12:05 Prothrombin Time 14.4 sec (9.3-11.8) H Prothrombin Time INR 1.41 (0.9-1.15) H Activated Partial Thromboplast Time 30.0 SEC (24.5-34.5) Cardiac Markers Test 03/20/25 12:05 B-Type Natriuretic Peptide 507.44 pg/mL (0-100) LFT Test 03/20/25 12:05 03/21/25 06:18 Alanine Aminotransferase (ALT) 69 U/L (7-40) H 68 U/L (7-40) H Alkaline Phosphatase 88 U/L (46-116) 90 U/L (46-116) Aspartate Amino Transferase (AST) 36 U/L (13-40) 38 U/L (13-40) Total Bilirubin 0.3 mg/dL (0.2-1.0) 0.4 mg/dL (0.2-1.0) Urinalysis Test 03/20/25 17:00 Urine Color Light-yellow (Yellow) Urine Clarity Clear (Clear) Urine pH 8.0 (5.0-9.0) Urine Specific [place] 1.008 (1.001-1.035) Urine Protein 1+ (Negative) H Urine Ketones Negative (Negative) Urine Blood 3+ /uL (Negative) H Urine Nitrite Negative (Negative) Urine Bilirubin Negative (Negative) Urine Urobilinogen Normal mg/dL (Negative) Urine Leukocyte Esterase Negative /uL (Negative) Urine RBC 9 /hpf (0 - 3) Urine Microscopic WBC 12 /HPF (0-3) H Urine Squamous Epithelial Cells None seen /hpf (<5) Urine Bacteria Many /hpf (None Seen) H Urine Sperm Present /hpf (None Seen) Urine Glucose Trace mg/dL (Normal) Labs and/or images reviewed: Labs reviewed by me, Image(s) reviewed by me Assessment/Plan Assessment/Plan Impression: -metabolic encephalopathy -rule out CVA -ESRD with HD -UTI -anemic chronic disease -NSTEMI type 2 secondary to pulmonary vascular congestion Plan: -neurology consultation: Recommendations reviewed -urine culture -MRI of the brain -continue antibiotic therapy with cefepime -nephrology consultation for hemodialysis -NPO until patient is more alert -repeat labs in a.m. Total time spent with patient discussing and formulating plan of care: 35 minutes. This medical document was created using an electronic medical record system with [employer] dictation system. Although this document has been carefully reviewed, there may still be some phonetic and typographical errors. These areas are purely typographical due to imperfections of the software programs, and do not reflect any compromise in the patient's medical care. Plan discussed with: Patient, Other (RN) My Orders Orders - JUNE ELLIS NP Procedure Category Date Status Time *Dr. [facility] -Da CONS 03/21/25 Verified Myra 09:35 Brain Head Wo Contrast MRI 03/21/25 Verified 09:35 Date of Service: Mar 21, 2025 Billing Provider: JUNE ELLIS NP Common Visit Codes: [id number] INP/OBS CARE(HIGH) JUNE ELLIS NP Mar 21, 2025 09:44
[2025-03-21] MEDS ORDERED: PATIENTS OWN MEDICATION (Nifedipine (Nifedipine Er) 1 TAB) PO SCH (10:00)
[2025-03-21] MEDS: ASPirin-EC 81 mg tab PO SCH (10:00)
[2025-03-21] MEDS: LORazepam 2MG/ML-1ML VIAL IV ONE (12:22)
[2025-03-21] MEDS ORDERED: PROCHLORPERAZINE EDISYLATE 5 MG/ML 2ML VIAL IV PRN (13:00)
--- NOTE | 2025-03-21 14:17 | DVHPN2 ---
Progress Note - Dictate Date Seen: Mar 21, 2025 Has the PT tested + for MRSA If YES, has PT been informed?: No Medical Necessity Reason Pt with a Central, PICC or Fol: No Subjective Alert but disoriented vital signs Vital Sign Date Time Temp Pulse Resp B/P (MAP) Pulse Ox O2 Delivery O2 Flow Rate FiO2 03/21/25 13:49 98.1 108 16 157/98 (117) 98 98.1 03/20/25 19:55 Room Air* 0 21 Total Intake and Output 03/20/25 03/20/25 03/21/25 15:00 23:00 07:00 Intake Total 50 ml Balance 50 ml medications Current Medications Medications Dose Ordered Sig/Shayan Route Start Time Stop Time Status Last Admin Dose Admin Cefepime HCl 50 ml @ 12.5 mls/hr HS IV 03/20/25 22:00 Aspirin 81 mg DAILY PO 03/21/25 10:00 Hydralazine HCl 25 mg Q6HR PO 03/20/25 18:00 Hold Isosorbide Dinitrate 20 mg TID@06,12,18 PO 03/20/25 18:00 Levothyroxine Sodium 50 mcg DAILY@0600 PO 03/21/25 06:00 Oxycodone/ Acetaminophen 1 tab QID PO 03/20/25 18:00 Hold Patient Own Medication 1 tab DAILY PO 03/21/25 10:00 Hold Ondansetron HCl 4 mg Q4HP PRN IV 03/20/25 17:30 Hold Docusate Sodium 100 mg BIDPRN PRN PO 03/20/25 17:30 Nitroglycerin 0.4 mg Q5MINP PRN SL 03/20/25 17:30 Prochlorperazine Edisylate 5 mg Q4HPRN PRN IV 03/21/25 13:00 objective General Appearance: Alert, Other (Nonverbal no distress noted) HEENT: Atraumatic, PERRLA, EOMI, Mucous membr. moist/pink Respiratory: Clear to auscultation, Normal air movement Cardiovascular: Regular rate, Normal S1, Normal S2, No murmurs Abdominal: Normal bowel sounds, Soft, No tenderness, No hepatospenomegaly, No masses Extremities: No clubbing, No cyanosis, Normal pulses, No tenderness/swelling, Other (The edema to bilateral hands) Skin: No rashes, No breakdown, No significant lesion Neuro: Other (Neuro nonfocal) laboratory and microbiology Laboratory Tests 03/21/25 06:18 Test 03/21/25 06:18 Range/Units Serum Glucose 91 74-106 mg/dL Problem List 1. ESRD 2. HTN 3. Encephalopathy 4. Anemia of CKD Patient is scheduled to have HD today For HTN please avoid overtreating, target SBP 160 mmHg for now is acceptable Dietary Evaluation Review Comments: Nutrition Recommendation 1) Advance to renal standard diet as medically feasible 2) Consider TPN of NPO > 7 days 3) Nephro-lara 1 tab daily 4) Monitor PO intake, lab values, weight trend, and I/O Expected Outcomes/Goals: To meet >75% estimated needs Lab values to improve Fu 2-3 days Plan discussed with: Patient CLAIRE JAMES MD Mar 21, 2025 14:17
--- NOTE | 2025-03-21 14:21 | DVH ---
PROCEDURE: MRI BRAIN HEAD WO CONTRAST INDICATION: Rule out CVA EXAM DATE: 03/21/2025 12:32 PM COMPARISON: CT HEAD WITHOUT CONTRAST on DOS: 03/20/25, CT HEAD WITHOUT CONTRAST on DOS: 03/08/25, CT HEA D WITHOUT CONTRAST on DOS: 02/21/25, CT HEAD WITHOUT CONTRAST on DOS: 10/27/24, CT HEAD WITHOUT CONTRAS T on DOS: 01/23/23 TECHNIQUE: MRI of the brain without intravenous contrast. Findings/ IMPRESSION: Extremely limited examination secondary to extensive patient motion artifact and inability to complet e full exam secondary to patient inability to tolerate full exam. There is nonspecific periventricular and subcortical T2/FLAIR hyperintense white matter changes. Diff erential includes: Demyelinating disease, chronic microangiopathic change, residua of migraine headac hes or other postinflammatory residua. There is 1 punctate foci of possible restricted diffusion in the posterior left frontal lobe (image 4 ). This may represent a small embolic infarct versus artifact versus active demyelinating disease . Clinical correlation advised.
[2025-03-22] VITALS (9 sets, daily range): BP systolic 141–202; BP diastolic 90–129; PULSE 110–124; RESP 16–18; TEMP 97.6–99.3; O2SAT 94–96
[2025-03-22] MEDS: HYDROmorphone HCL 2 MG/ML VL/or syr IV PRN (05:40)
[2025-03-22] MEDS: diphenhdrAMINE HCL 50 MG/1 ML VL IV PRN (05:40)
[2025-03-22] MEDS: LEVOTHYROXINE SODIUM 100 MCG/5 ML INJ IV SCH (06:00)
[2025-03-22] MEDS ORDERED: LEVOTHYROXINE SODIUM 100 MCG/5 ML INJ IV SCH (06:00)
[2025-03-22] MEDS ORDERED: LABETALOL HCL 20 MG/4 ML VL IV PRN (09:00)
[2025-03-22] MEDS: NITROGLYCERIN 0.4MG/HR TOPICAL PATCH TD ONE (09:19)
--- NOTE | 2025-03-22 09:53 | DVHPN2 ---
Progress Note - Dictate Date Seen: Mar 22, 2025 Has the PT tested + for MRSA If YES, has PT been informed?: No Medical Necessity Reason Pt with a Central, PICC or Fol: No Subjective Alert Opens eyes but has minimal verbal responses, seems to understand basic questions vital signs Vital Sign Date Time Temp Pulse Resp B/P (MAP) Pulse Ox O2 Delivery O2 Flow Rate FiO2 03/22/25 09:19 199/128 03/22/25 09:00 97.6 112 16 96 97.6 03/22/25 07:30 Room Air* 0 21 Total Intake and Output 03/21/25 03/21/25 03/22/25 15:00 23:00 07:00 Intake Total 0 ml 50 ml Output Total 200 ml Balance -200 ml 50 ml medications Current Medications Medications Dose Ordered Sig/Shayan Route Start Time Stop Time Status Last Admin Dose Admin Cefepime HCl 50 ml @ 12.5 mls/hr HS IV 03/20/25 22:00 03/21/25 21:52 12.5 MLS/HR Aspirin 81 mg DAILY PO 03/21/25 10:00 Hydralazine HCl 25 mg Q6HR PO 03/20/25 18:00 Hold Isosorbide Dinitrate 20 mg TID@06,12,18 PO 03/20/25 18:00 Oxycodone/ Acetaminophen 1 tab QID PO 03/20/25 18:00 Hold Patient Own Medication 1 tab DAILY PO 03/21/25 10:00 Hold Ondansetron HCl 4 mg Q4HP PRN IV 03/20/25 17:30 Hold Docusate Sodium 100 mg BIDPRN PRN PO 03/20/25 17:30 Nitroglycerin 0.4 mg Q5MINP PRN SL 03/20/25 17:30 Prochlorperazine Edisylate 5 mg Q4HPRN PRN IV 03/21/25 13:00 Levothyroxine Sodium 35 mcg DAILY@0600 IV 03/22/25 06:00 Hold Hydromorphone HCl 0.25 mg Q4HPRN PRN IV 03/22/25 05:30 03/22/25 05:40 0.25 MG Diphenhydramine HCl 25 mg Q4HP PRN IV 03/22/25 05:30 03/22/25 05:40 25 MG Clonidine HCl 0.2 mg Q6HP PRN PO 03/22/25 09:00 objective General Appearance: Alert, Other (Nonverbal no distress noted) HEENT: Atraumatic, PERRLA, EOMI, Mucous membranes. moist/pink Respiratory: Clear to auscultation, Normal air movement Cardiovascular: Regular rate, Normal S1, Normal S2, S4 gallop is present Abdominal: Normal bowel sounds, Soft, No tenderness, No hepatospenomegaly, No masses Extremities: No clubbing, No cyanosis, Normal pulses, No tenderness/swelling, Other (The edema to bilateral hands) Skin: No rashes, No breakdown, No significant lesion Neuro: Other (Neuro nonfocal) laboratory and microbiology Laboratory Tests 03/21/25 06:18 Test 03/21/25 06:18 Range/Units Serum Glucose 91 74-106 mg/dL Problem List 1. ESRD 2. HTN 3. Encephalopathy 4. Anemia of CKD Patient is scheduled to have HD today For HTN please avoid overtreating, target SBP 160 mmHg for now is acceptable Continue current regimen:amlodipine, losartan, hydralazine and carvedilol, he is not "allergic to blood pressure medications", he tolerated all the meds well during the last hospitalization. Dietary Evaluation Review Comments: Nutrition Recommendation 1) Advance to renal standard diet as medically feasible 2) Consider TPN of NPO > 7 days 3) Nephro-lara 1 tab daily 4) Monitor PO intake, lab values, weight trend, and I/O Expected Outcomes/Goals: To meet >75% estimated needs Lab values to improve Fu 2-3 days Plan discussed with: Patient CLAIRE JAMES MD Mar 22, 2025 09:53
[2025-03-22] MEDS: CARVEDILOL 12.5 MG TAB PO SCH (10:00)
[2025-03-22] MEDS: LOSARTAN POTASSIUM 50 MG TAB PO SCH (10:00)
[2025-03-22] MEDS: SODIUM CHL 0.9% 1000 ML BAG XX ONE ×2 (13:35→16:12)
--- NOTE | 2025-03-22 14:05 | DVHPN2 ---
Subjective Patient encephalopathic Reviewed: Care Plan, H&P, Labs, Medications Changes from previous H/P or p: No Changes General: Per HPI Eyes: No Pain, No Vision change, No Conjunctivae inflammation, No Eyelid inflammation, No Other, No Redness ENT: No Ear pain, No Ear discharge, No Nose pain, No Nose discharge, No Nose congestion, No Mouth pain, No Mouth swelling, No Throat pain, No Throat swelling, No Other Cardiovascular: No Chest Pain, No Palpitations, No Orthopnea, No Paroxysmal Noc. Dyspnea, No Edema, No Lt Headedness, No Other Respiratory: No Cough, No Dry, No Shortness of breath, No SOB with excertion, No Wheezing, No Hemoptysis, No Pleuritic Pain, No Sputum, No Other Gastrointestinal: No Nausea, No Vomiting, No Abdominal Pain, No Diarrhea, No Constipation, No Melena, No Hematochezia, No Other Genitourinary: No Dysuria, No Frequency, No Incontinence, No Hematuria, No Retention, No Other Musculoskeletal: No other, No neck pain, No shoulder pain, No arm pain, No back pain, No hand pain, No leg pain, No foot pain Skin: No Rash, No Lesions, No Jaundice, No Bruising, No Other Objective Vitals Vital Signs Date Time Temp Pulse Resp B/P (MAP) Pulse Ox O2 Delivery O2 Flow Rate FiO2 03/22/25 13:00 98.0 112 16 181/119 (139) 95 98.0 03/22/25 07:30 Room Air* 0 21 Intake/Output Intake and Output 03/22/25 07:00 Intake Total 50 ml Output Total 200 ml Balance -150 ml Intake Oral 0 ml IV Total 50 ml Output Urine Total 200 ml # Voids 1 General Appearance: Alert, Other (Patient encephalopathic) HEENT: Atraumatic, PERRLA Lungs: Clear to auscultation, Normal air movement Cardiovascular: Normal S1, Normal S2 Abdomen: Normal bowel sounds, Soft, No tenderness Musculoskeletal: Other (Unable to follow commands) Neuro: Other (Non-verbal) Skin: Dry, Intact Psych/Mental Status: Other (Non-verbal) Medications Current Medications Medications Dose Ordered Sig/Shayan Route Start Time Stop Time Status Last Admin Dose Admin Cefepime HCl 50 ml @ 12.5 mls/hr HS IV 03/20/25 22:00 03/21/25 21:52 12.5 MLS/HR Aspirin 81 mg DAILY PO 03/21/25 10:00 Isosorbide Dinitrate 20 mg TID@06,12,18 PO 03/20/25 18:00 Oxycodone/ Acetaminophen 1 tab QID PO 03/20/25 18:00 Hold Patient Own Medication 1 tab DAILY PO 03/21/25 10:00 Hold Ondansetron HCl 4 mg Q4HP PRN IV 03/20/25 17:30 Hold Docusate Sodium 100 mg BIDPRN PRN PO 03/20/25 17:30 Nitroglycerin 0.4 mg Q5MINP PRN SL 03/20/25 17:30 Prochlorperazine Edisylate 5 mg Q4HPRN PRN IV 03/21/25 13:00 Levothyroxine Sodium 35 mcg DAILY@0600 IV 03/22/25 06:00 Hold Hydromorphone HCl 0.25 mg Q4HPRN PRN IV 03/22/25 05:30 03/22/25 05:40 0.25 MG Diphenhydramine HCl 25 mg Q4HP PRN IV 03/22/25 05:30 03/22/25 05:40 25 MG Clonidine HCl 0.2 mg Q6HP PRN PO 03/22/25 09:00 Hydralazine HCl 25 mg Q6HR PO 03/22/25 10:00 Losartan Potassium 50 mg DAILY PO 03/22/25 10:00 Carvedilol 25 mg Q12HR PO 03/22/25 10:00 Amlodipine Besylate 10 mg DAILY PO 03/22/25 10:00 Laboratory Results Laboratory Tests 03/21/25 06:18 HgA1c, TSH Test 03/22/25 02:06 Thyroid Stimulating Hormone (TSH) 3.10 uIU/mL (0.55-4.78) Urinalysis Test 03/20/25 17:00 Urine Color Light-yellow (Yellow) Urine Clarity Clear (Clear) Urine pH 8.0 (5.0-9.0) Urine Specific [place] 1.008 (1.001-1.035) Urine Protein 1+ (Negative) H Urine Ketones Negative (Negative) Urine Blood 3+ /uL (Negative) H Urine Nitrite Negative (Negative) Urine Bilirubin Negative (Negative) Urine Urobilinogen Normal mg/dL (Negative) Urine Leukocyte Esterase Negative /uL (Negative) Urine RBC 9 /hpf (0 - 3) Urine Microscopic WBC 12 /HPF (0-3) H Urine Squamous Epithelial Cells None seen /hpf (<5) Urine Bacteria Many /hpf (None Seen) H Urine Sperm Present /hpf (None Seen) Urine Glucose Trace mg/dL (Normal) Microbiology Microbiology Date/Time Source Procedure Growth Status 03/20/25 11:55 Blood Blood Culture - Preliminary NO GROWTH AFTER 48 HOURS OF INCUBATION. Resulted Labs and/or images reviewed: Labs reviewed by me, Image(s) reviewed by me Assessment/Plan Assessment/Plan Impression: -metabolic encephalopathy -rule out CVA -ESRD with HD -UTI -anemic chronic disease -NSTEMI type 2 secondary to pulmonary vascular congestion Plan: Events: Hypertensive, not tolerating PO (unable to swallow). NTG patch placed. Plans for HD today. -neurology consultation: Recommendations reviewed. Discussed POC with Dr. Cesar. -urine culture -MRI of the brain: Reviewed -continue antibiotic therapy with cefepime -nephrology consultation for hemodialysis -NPO until patient is more alert -repeat labs in a.m. Total time spent with patient discussing and formulating plan of care: 35 minutes. This medical document was created using an electronic medical record system with [employer] dictation system. Although this document has been carefully reviewed, there may still be some phonetic and typographical errors. These areas are purely typographical due to imperfections of the software programs, and do not reflect any compromise in the patient's medical care. Plan discussed with: Patient, Other (RN) My Orders Orders - JUNE ELLIS NP Procedure Category Date Status Time Clonidine Hcl Tablet PHA 03/22/25 In Process (Catapres Tablet) 09:00 Date of Service: Mar 22, 2025 Billing Provider: JUNE ELLIS NP Common Visit Codes: [id number] INP/OBS CARE(HIGH) JUNE ELLIS NP Mar 22, 2025 14:05
--- NOTE | 2025-03-22 19:36 | DVHPN2 ---
Progress Note - Dictate Date Seen: Mar 22, 2025 Has the PT tested + for MRSA If YES, has PT been informed?: No Medical Necessity Reason Pt with a Central, PICC or Fol: No Subjective Mr. Mercado is a 54 years old right-handed gentleman with a history of hypertension, hypothyroidism, chronic kidney failure, systemic inflammatory response syndrome, TIA, stroke with left-sided residual weakness, seizure, brain aneurysm, PTSD, he came to the [facility] on 03[facility]25 with a chief complaint of ALOC. He was discharged to SNF on 03/19/2025. When I saw him on 03/17/2025, he was awake, oriented to person, place, he was able to talk with clear voice. At this time, he is awake, he tracks, he is responsive to verbal stimuli, but he does not vocalize, he keeps moving the arm, leg or rolling in the gurney. His relates the patient was further mentally altered when he was discharged to the SNF on 03/19/2025 I saw him in 07/2013 for headache, 08/05/15 for intractable headache, possible TIA, 12/17/2017 for stroke, 03/08/2025 for encephalopathy I have seen and examined the patient, I have talked to her nurse and , who was in the room. He is awake, but has his eye closed, looks tired, he does not vocalize He had hemodialysis today and the nurse related the patient is was relaxed with Dilaudid : He is allergic to Ativan, but is okay to give him 0.5 mg each time Urinalysis, 02/26/2025: WBC: 4, urine leukocyte esterase: Negative Urinalysis, 03/20/2025: WBC: 12, urine leukocyte esterase: Negative Plasma alcohol, 03/20/2025: <3 ABG, 02/25/2025: Metabolic acidosis, 02/26/2025: Hypoxia, metabolic acidosis CBC, 02/21/2025, 10.7/13.1/154/83.9, 03/08/2025: 9.6/8.7/260/87.4, 03/20/2025: 7.9/9.3/397/90.8 PT/INR/ABG, 03/20/2025: 14.4/1.41/30 BUN/CR, 03/08/2025: 52/5.15, 03/20/2025: 36/9.16, 03/21/2025: 42/10.58 GFR, 03/08/2020 5:13 a.m. HCO3, 03/20/2025: 24, 03/21/2025: 23 Troponin one high sensitivity, 02/22/2025: 541, 1173, 2396, 4495, 5273, 03/20/2025: 137, 134, 134 TBI/AST/ALT/AP, 03/08/2025: 0.3/637/200/211, 03/20/2025: 0.3/36/69/88 TG/HDL/LDL/HDL, 02/22/2025: 249/177/96/30 Chest x-ray, 02/25/2025: 1. Endotracheal tube in place 6.4 cm above the ivan 2. Enteric tube below the diaphragm in the stomach. 3. Cardiopulmonary findings most likely secondary to congestive failure Chest x-ray, 03/08/2025: No significant change from the previous study. Stable support devices. Unchanged endotracheal tube, enteric tube, and right IJ catheter Chest x-ray 03/20/2025: He was on baby aspirin, but no statin because his cholesterol was normal CT head, 02/21/2025: 1. No acute intracranial abnormality. 2. Old lacunar infarct external capsule right basal ganglia CT head, 03/08/2025: No acute intracranial abnormality CT head, 03/20/2025: NO ACUTE INTRACRANIAL ABNORMALITY SEEN MRI head, 03/21/2025: Extremely limited examination secondary to extensive patient motion artifact and inability to complete full exam secondary to patient inability to tolerate full exam. There is nonspecific periventricular and subcortical T2/FLAIR hyperintense white matter changes. Differential includes: Demyelinating disease, chronic microangiopathic change, residua of migraine headaches or other postinflammatory residua. There is 1 punctate foci of possible restricted diffusion in the posterior left frontal lobe (image 41/52). This may represent a small embolic infarct versus artifact versus active demyelinating disease. Clinical correlation advised (I saw more possible DWI lesions, image 42, 43, 45) MRA head, 12/18/2017: Normal noncontrast MRA of the head vital signs Vital Sign Date Time Temp Pulse Resp B/P (MAP) Pulse Ox O2 Delivery O2 Flow Rate FiO2 03/22/25 17:50 134/91 03/22/25 17:50 119 16 03/22/25 17:00 98.4 95 98.4 03/22/25 07:30 Room Air* 0 21 Total Intake and Output 03/21/25 03/21/25 03/22/25 15:00 23:00 07:00 Intake Total 0 ml 50 ml Output Total 200 ml Balance -200 ml 50 ml medications Current Medications Medications Dose Ordered Sig/Shayan Route Start Time Stop Time Status Last Admin Dose Admin Cefepime HCl 50 ml @ 12.5 mls/hr HS IV 03/20/25 22:00 03/21/25 21:52 12.5 MLS/HR Aspirin 81 mg DAILY PO 03/21/25 10:00 Isosorbide Dinitrate 20 mg TID@06,12,18 PO 03/20/25 18:00 Oxycodone/ Acetaminophen 1 tab QID PO 03/20/25 18:00 Hold Patient Own Medication 1 tab DAILY PO 03/21/25 10:00 Hold Ondansetron HCl 4 mg Q4HP PRN IV 03/20/25 17:30 Hold Docusate Sodium 100 mg BIDPRN PRN PO 03/20/25 17:30 Nitroglycerin 0.4 mg Q5MINP PRN SL 03/20/25 17:30 Prochlorperazine Edisylate 5 mg Q4HPRN PRN IV 03/21/25 13:00 Levothyroxine Sodium 35 mcg DAILY@0600 IV 03/22/25 06:00 Hold Hydromorphone HCl 0.25 mg Q4HPRN PRN IV 03/22/25 05:30 03/22/25 17:05 0.25 MG Diphenhydramine HCl 25 mg Q4HP PRN IV 03/22/25 05:30 03/22/25 05:40 25 MG Clonidine HCl 0.2 mg Q6HP PRN PO 03/22/25 09:00 03/22/25 16:41 0.2 MG Hydralazine HCl 25 mg Q6HR PO 03/22/25 10:00 Losartan Potassium 50 mg DAILY PO 03/22/25 10:00 Carvedilol 25 mg Q12HR PO 03/22/25 10:00 Amlodipine Besylate 10 mg DAILY PO 03/22/25 10:00 objective General: the patient is well developed and nourished. No acute distress. MENTAL STATUS: Subjective SPEECH, LANGUAGE, HIGHER CORTICAL FUNCTION: CRANIAL NERVES: Pupils are equal, round and reactive. EOMs full and conjugate. Facial sensation intact in all three divisions bilaterally. Mandibular strength intact. Facial muscles symmetrical and strength intact. SENSATION: Sensation to touch and pinprick is normal. MOTOR: Normal tone in the upper and lower extremity. Normal muscle bulk. No fasciculations. No abnormal movements or posturing. He moves the arms and legs REFLEXES: Deep tendon reflexes are stroke on the left side, arm: 3/4, uncle and knee: 4/4. No pathological reflexes. CEREBELLAR/COORDINATION: Deferred GAIT/STATION: deferred. laboratory and microbiology Laboratory Tests 03/21/25 06:18 Test 03/21/25 06:18 Range/Units Serum Glucose 91 74-106 mg/dL Problem List Altered mental status Metabolic encephalopathy Kidney failure on hemodialysis Multiple strokes/TIA with residual left-sided weakness Reports seizure disorder, not confirmed with his Polyneuropathy Elevated troponin one Possible multiple DWI lesion on 03/21/2025 Assessment/Plan Monitoring Supportive treatment Follow-up MR brain scan IV antibiotics Aspirin 81 mg daily GI prophylaxis/famotidine DVT prophylaxis Oxygen Antibiotics More recommendation per clinical course This medical document was created using an electronic medical record system with [employer] dictation system. Although this document has been carefully reviewed, there may still be some phonetic and typographical errors. These areas are purely typographical due to imperfections of the software programs, and do not reflect any compromise in the patient's medical care. Prognosis poor Dietary Evaluation Review Comments: Nutrition Recommendation 1) Advance to renal standard diet as medically feasible 2) Consider TPN of NPO > 7 days 3) Nephro-lara 1 tab daily 4) Monitor PO intake, lab values, weight trend, and I/O Expected Outcomes/Goals: To meet >75% estimated needs Lab values to improve Fu 2-3 days Plan discussed with: Spouse, Other Total Time (mins): 40 ERASMO CHO MD Mar 22, 2025 19:36
[2025-03-22] MEDS ORDERED: LORazepam 2MG/ML-1ML VIAL IV PRN (21:00)
[2025-03-23] VITALS (10 sets, daily range): BP systolic 142–210; BP diastolic 89–113; PULSE 100–118; RESP 17–20; TEMP 98.2–99.3; O2SAT 93–98
--- NOTE | 2025-03-23 17:22 | DVHPN2 ---
Progress Note - Dictate Date Seen: Mar 23, 2025 Has the PT tested + for MRSA If YES, has PT been informed?: No Medical Necessity Reason Pt with a Central, PICC or Fol: No vital signs Vital Sign Date Time Temp Pulse Resp B/P (MAP) Pulse Ox O2 Delivery O2 Flow Rate FiO2 03/23/25 16:55 98.3 110 20 179/99 (125) 95 98.3 03/23/25 08:00 Room Air* 0 21 Total Intake and Output 03/22/25 03/22/25 03/23/25 15:00 23:00 07:00 Intake Total 0 ml 150 ml Balance 0 ml 150 ml medications Current Medications Medications Dose Ordered Sig/Shayan Route Start Time Stop Time Status Last Admin Dose Admin Cefepime HCl 50 ml @ 12.5 mls/hr HS IV 03/20/25 22:00 03/22/25 21:07 12.5 MLS/HR Aspirin 81 mg DAILY PO 03/21/25 10:00 Isosorbide Dinitrate 20 mg TID@06,12,18 PO 03/20/25 18:00 Oxycodone/ Acetaminophen 1 tab QID PO 03/20/25 18:00 Hold Patient Own Medication 1 tab DAILY PO 03/21/25 10:00 Hold Ondansetron HCl 4 mg Q4HP PRN IV 03/20/25 17:30 Hold Docusate Sodium 100 mg BIDPRN PRN PO 03/20/25 17:30 Nitroglycerin 0.4 mg Q5MINP PRN SL 03/20/25 17:30 Prochlorperazine Edisylate 5 mg Q4HPRN PRN IV 03/21/25 13:00 Levothyroxine Sodium 35 mcg DAILY@0600 IV 03/22/25 06:00 Hold Hydromorphone HCl 0.25 mg Q4HPRN PRN IV 03/22/25 05:30 03/23/25 16:37 0.25 MG Diphenhydramine HCl 25 mg Q4HP PRN IV 03/22/25 05:30 03/22/25 05:40 25 MG Clonidine HCl 0.2 mg Q6HP PRN PO 03/22/25 09:00 03/22/25 16:41 0.2 MG Hydralazine HCl 25 mg Q6HR PO 03/22/25 10:00 Losartan Potassium 50 mg DAILY PO 03/22/25 10:00 Carvedilol 25 mg Q12HR PO 03/22/25 10:00 Amlodipine Besylate 10 mg DAILY PO 03/22/25 10:00 Lorazepam 0.5 mg ONCE PRN IV 03/22/25 21:00 Hold objective General Appearance: Alert, Other (Nonverbal no distress noted) HEENT: Atraumatic, PERRLA, EOMI, Mucous membranes. moist/pink Respiratory: Clear to auscultation, Normal air movement Cardiovascular: Regular rate, Normal S1, Normal S2, S4 gallop is present Abdominal: Normal bowel sounds, Soft, No tenderness, No hepatosplenomegaly, No masses Extremities: No clubbing, No cyanosis, Normal pulses, No tenderness/swelling, Other (The edema to bilateral hands) Skin: No rashes, No breakdown, No significant lesion Neuro: AAOx3 laboratory and microbiology Laboratory Tests 03/21/25 06:18 Test 03/21/25 06:18 Range/Units Serum Glucose 91 74-106 mg/dL Assessment/Plan ESRD on HD HTN Encephalopathy Anemia of CKD h/o CVA Plan: s/p HD Sunday Next HD on Sunday For HTN please avoid overtreating, target SBP 160 mmHg for now is acceptable Continue current regimen:amlodipine, losartan, hydralazine and carvedilol, he is not "allergic to blood pressure medications", he tolerated all the meds well during the last hospitalization. Dietary Evaluation Review Comments: Nutrition Recommendation 1) Advance to renal standard diet as medically feasible 2) Consider TPN of NPO > 7 days 3) Nephro-lara 1 tab daily 4) Monitor PO intake, lab values, weight trend, and I/O Expected Outcomes/Goals: To meet >75% estimated needs Lab values to improve Fu 2-3 days Plan discussed with: Patient, Spouse GREGORY BEAVERS MD Mar 23, 2025 17:22
--- NOTE | 2025-03-23 21:30 | DVHPN2 ---
Progress Note - Dictate Date Seen: Mar 23, 2025 Has the PT tested + for MRSA If YES, has PT been informed?: No Medical Necessity Reason Pt with a Central, PICC or Fol: No Subjective Mr. Mercado is a 54 years old right-handed gentleman with a history of hypertension, hypothyroidism, chronic kidney failure, systemic inflammatory response syndrome, TIA, stroke with left-sided residual weakness, seizure, brain aneurysm, PTSD, he came to the [facility] on 03/20/25 with a chief complaint of ALOC. He was discharged to SNF on 03/19/2025. When I saw him on 03/17/2025, he was awake, oriented to person, place, he was able to talk with clear voice. At this time, he is awake, he tracks, he is responsive to verbal stimuli, but he does not vocalize, he keeps moving the arm, leg or rolling in the gurney. His relates the patient was further mentally altered when he was discharged to the SNF on 03/19/2025 I saw him in 07/2013 for headache, 08/05/15 for intractable headache, possible TIA, 12/17/2017 for stroke, 03/08/2025 for encephalopathy I have seen and examined the patient, I have talked to her nurse. He is awake, he responsive to my verbal stimuli, he does not answer questions, he moves his extremities, possible weak in the right arm Urinalysis, 02/26/2025: WBC: 4, urine leukocyte esterase: Negative Urinalysis, 03/20/2025: WBC: 12, urine leukocyte esterase: Negative Plasma alcohol, 03/20/2025: <3 ABG, 02/25/2025: Metabolic acidosis, 02/26/2025: Hypoxia, metabolic acidosis CBC, 02/21/2025, 10.7/13.1/154/83.9, 03/08/2025: 9.6/8.7/260/87.4, 03/20/2025: 7.9/9.3/397/90.8 PT/INR/ABG, 03/20/2025: 14.4/1.41/30 BUN/CR, 03/08/2025: 52/5.15, 03/20/2025: 36/9.16, 03/21/2025: 42/10.58 GFR, 03/08/2020 5:13 a.m. HCO3, 03/20/2025: 24, 03/21/2025: 23 Troponin one high sensitivity, 02/22/2025: 541, 1173, 2396, 4495, 5273, 03/20/2025: 137, 134, 134 TBI/AST/ALT/AP, 03/08/2025: 0.3/637/200/211, 03/20/2025: 0.3/36/69/88 TG/HDL/LDL/HDL, 02/22/2025: 249/177/96/30 Chest x-ray, 02/25/2025: 1. Endotracheal tube in place 6.4 cm above the ivan 2. Enteric tube below the diaphragm in the stomach. 3. Cardiopulmonary findings most likely secondary to congestive failure Chest x-ray, 03/08/2025: No significant change from the previous study. Stable support devices. Unchanged endotracheal tube, enteric tube, and right IJ catheter Chest x-ray 03/20/2025: He was on baby aspirin, but no statin because his cholesterol was normal CT head, 02/21/2025: 1. No acute intracranial abnormality. 2. Old lacunar infarct external capsule right basal ganglia CT head, 03/08/2025: No acute intracranial abnormality CT head, 03/20/2025: NO ACUTE INTRACRANIAL ABNORMALITY SEEN MRI head, 03/21/2025: Extremely limited examination secondary to extensive patient motion artifact and inability to complete full exam secondary to patient inability to tolerate full exam. There is nonspecific periventricular and subcortical T2/FLAIR hyperintense white matter changes. Differential includes: Demyelinating disease, chronic microangiopathic change, residua of migraine headaches or other postinflammatory residua. There is 1 punctate foci of possible restricted diffusion in the posterior left frontal lobe (image 41/52). This may represent a small embolic infarct versus artifact versus active demyelinating disease. Clinical correlation advised (I saw more possible DWI lesions, image 42, 43, 45) MRA head, 12/18/2017: Normal noncontrast MRA of the head vital signs Vital Sign Date Time Temp Pulse Resp B/P (MAP) Pulse Ox O2 Delivery O2 Flow Rate FiO2 03/23/25 21:01 111 178/105 (129) 03/23/25 20:54 16 03/23/25 20:00 Room Air* 0 21 03/23/25 16:55 98.3 95 98.3 Total Intake and Output 03/22/25 03/22/25 03/23/25 15:00 23:00 07:00 Intake Total 0 ml 150 ml Balance 0 ml 150 ml medications Current Medications Medications Dose Ordered Sig/Shayan Route Start Time Stop Time Status Last Admin Dose Admin Cefepime HCl 50 ml @ 12.5 mls/hr HS IV 03/20/25 22:00 03/23/25 20:54 12.5 MLS/HR Aspirin 81 mg DAILY PO 03/21/25 10:00 Isosorbide Dinitrate 20 mg TID@06,12,18 PO 03/20/25 18:00 03/23/25 18:23 20 MG Oxycodone/ Acetaminophen 1 tab QID PO 03/20/25 18:00 Hold Patient Own Medication 1 tab DAILY PO 03/21/25 10:00 Hold Ondansetron HCl 4 mg Q4HP PRN IV 03/20/25 17:30 Hold Docusate Sodium 100 mg BIDPRN PRN PO 03/20/25 17:30 Nitroglycerin 0.4 mg Q5MINP PRN SL 03/20/25 17:30 Prochlorperazine Edisylate 5 mg Q4HPRN PRN IV 03/21/25 13:00 Levothyroxine Sodium 35 mcg DAILY@0600 IV 03/22/25 06:00 Hold Hydromorphone HCl 0.25 mg Q4HPRN PRN IV 03/22/25 05:30 03/23/25 20:54 0.25 MG Diphenhydramine HCl 25 mg Q4HP PRN IV 03/22/25 05:30 03/22/25 05:40 25 MG Clonidine HCl 0.2 mg Q6HP PRN PO 03/22/25 09:00 03/22/25 16:41 0.2 MG Hydralazine HCl 25 mg Q6HR PO 03/22/25 10:00 03/23/25 18:23 25 MG Losartan Potassium 50 mg DAILY PO 03/22/25 10:00 Carvedilol 25 mg Q12HR PO 03/22/25 10:00 Amlodipine Besylate 10 mg DAILY PO 03/22/25 10:00 Lorazepam 0.5 mg ONCE PRN IV 03/22/25 21:00 Hold objective General: the patient is well developed and nourished. No acute distress. MENTAL STATUS: Subjective SPEECH, LANGUAGE, HIGHER CORTICAL FUNCTION: CRANIAL NERVES: Pupils are equal, round and reactive. EOMs full and conjugate. Facial sensation intact in all three divisions bilaterally. Mandibular strength intact. Facial muscles symmetrical and strength intact. SENSATION: Sensation to touch and pinprick is normal. MOTOR: Normal tone in the upper and lower extremity. Normal muscle bulk. No fasciculations. No abnormal movements or posturing. He moves the arms and legs REFLEXES: Deep tendon reflexes are stroke on the left side, arm: 3/4, uncle and knee: 4/4. No pathological reflexes. CEREBELLAR/COORDINATION: Deferred GAIT/STATION: deferred. laboratory and microbiology Laboratory Tests 03/21/25 06:18 Test 03/21/25 06:18 Range/Units Serum Glucose 91 74-106 mg/dL Problem List Altered mental status Metabolic encephalopathy Kidney failure on hemodialysis Multiple strokes/TIA with residual left-sided weakness Reports seizure disorder, not confirmed with his Polyneuropathy Elevated troponin one Possible multiple DWI lesion on 03/21/2025 Assessment/Plan Monitoring Supportive treatment Follow-up MR brain scan IV antibiotics Aspirin 81 mg daily GI prophylaxis/famotidine DVT prophylaxis Oxygen Antibiotics More recommendation per clinical course This medical document was created using an electronic medical record system with [employer] dictation system. Although this document has been carefully reviewed, there may still be some phonetic and typographical errors. These areas are purely typographical due to imperfections of the software programs, and do not reflect any compromise in the patient's medical care. Prognosis poor Dietary Evaluation Review Comments: Nutrition Recommendation 1) Advance to renal standard diet as medically feasible 2) Consider TPN of NPO > 7 days 3) Nephro-lara 1 tab daily 4) Monitor PO intake, lab values, weight trend, and I/O Expected Outcomes/Goals: To meet >75% estimated needs Lab values to improve Fu 2-3 days Plan discussed with: ERASMO De Leon MD Mar 23, 2025 21:30
[2025-03-23] MEDS: MINOXIDIL 2.5 MG TAB PO SCH (22:00)
[2025-03-23] MEDS: PRAZOSIN HCL 1 MG CAP PO SCH (22:00)
--- NOTE | 2025-03-23 22:06 | DVHPN2 ---
Assessment/Plan Assessment/Plan Progress note note 54 M with resistant HTN (with noted allergies but reported making him feel "very sick", no anaphylaxis hx), ESRD on HD, carotid artery stenosis s/p stenting, TIAs, thyroid disease. admited for AMS. seen today. answering questions intermitently. able to take po meds with apple sauce. treating UTI doubt infection physical exam on NC intermittently uncooperative, however alert, protecting airway, able to take meds PERLLA s1 s2 rrr clear breath sounds abdomen soft trace le edema labs ekg imaging reviewed assessment and plan ESRD on HD HTN emergency type 2 DE demand ischemia and decreased renal clearance UTI? metabolic encephalopathy? resume home meds cefepime MRI neuro consult diet puree dvt ppx heprain full doce Plan discussed with: Patient My Orders Orders - DION ROSA MD Procedure Category Date Status Time Pureed DIET 03/23/25 Transmitted Dinner Clonidine Hcl Tablet PHA 03/23/25 Transmitted (Catapres Tablet) 22:00 Minoxidil Tablet PHA 03/23/25 Transmitted (Loniten Tablet) 22:00 Prazosin Hcl Capsule PHA 03/23/25 Transmitted (Minipres Capsule) 22:00 Date of Service: Mar 23, 2025 Billing Provider: DION ROSA MD Common Visit Codes: [id number] INP/OBS CARE(HIGH) DION ROSA MD Mar 23, 2025 22:06
[2025-03-24] VITALS (45 sets, daily range): BP systolic 121–203; BP diastolic 77–139; PULSE 101–130; RESP 9–22; TEMP 97.3–98.9; O2SAT 18–99
[2025-03-24] MEDS: LABETALOL HCL 20 MG/4 ML VL IV ONE ×2 (01:51→06:08)
[2025-03-24] MEDS: SODIUM CHL 0.9% 1000 ML BAG XX ONE (07:00)
--- NOTE | 2025-03-24 14:17 | DVHPN2 ---
Assessment/Plan Assessment/Plan Progress note note 54 M with resistant HTN (with noted allergies but reported making him feel "very sick", no anaphylaxis hx), ESRD on HD, carotid artery stenosis s/p stenting, TIAs, thyroid disease. admited for AMS. seen today. not able to take meds. starting nicardipine. transfer to ICU physical exam on NC intermittently uncooperative, however alert, protecting airway, able to take meds PERLLA s1 s2 rrr clear breath sounds abdomen soft trace le edema labs ekg imaging reviewed assessment and plan ESRD on HD HTN emergency type 2 [place] demand ischemia and decreased renal clearance UTI? metabolic encephalopathy? PRESS? resume home meds cefepime MRI neuro consult diet puree dvt ppx heprain full doce critical care time 45 minutes condition cirtical prognosis poor Plan discussed with: Patient, Spouse My Orders Orders - DION ROSA MD Procedure Category Date Status Time Pureed DIET 03/23/25 Transmitted Dinner Clonidine Hcl Tablet PHA 03/23/25 In Process (Catapres Tablet) 22:00 Minoxidil Tablet PHA 03/23/25 In Process (Loniten Tablet) 22:00 Prazosin Hcl Capsule PHA 03/23/25 In Process (Minipres Capsule) 22:00 Transfer Orders XFER 03/24/25 Transmitted 12:21 Nicardipine PHA 03/24/25 Logged 25mg/250ml Bag Kit 12:30 Date of Service: Mar 24, 2025 Billing Provider: DION ROSA MD Common Visit Codes: [id number] CARE 30-74 MIN DION ROSA MD Mar 24, 2025 14:16
[2025-03-24] MEDS: NICARDIPINE HCL IN SODIUM CHLO 200 ML IV SCH ×2 (15:17→22:39)
--- NOTE | 2025-03-24 16:36 | DVHPN2 ---
Progress Note - Dictate Date Seen: Mar 24, 2025 Has the PT tested + for MRSA If YES, has PT been informed?: No Medical Necessity Reason Pt with a Central, PICC or Fol: No Subjective he has been transferred to ICU for HTN urgency vital signs Vital Sign Date Time Temp Pulse Resp B/P (MAP) Pulse Ox O2 Delivery O2 Flow Rate FiO2 03/24/25 16:12 130 13 169/113 03/24/25 13:29 Room Air* 0 21 03/24/25 12:59 98.9 98.9 03/24/25 09:00 96 Total Intake and Output 03/23/25 03/23/25 03/24/25 15:00 23:00 07:00 Intake Total 100 ml 150 ml Balance 100 ml 150 ml medications Current Medications Medications Dose Ordered Sig/Shayan Route Start Time Stop Time Status Last Admin Dose Admin Cefepime HCl 50 ml @ 12.5 mls/hr HS IV 03/20/25 22:00 03/23/25 20:54 12.5 MLS/HR Aspirin 81 mg DAILY PO 03/21/25 10:00 Prochlorperazine Edisylate 5 mg Q4HPRN PRN IV 03/21/25 13:00 Levothyroxine Sodium 35 mcg DAILY@0600 IV 03/22/25 06:00 Hold Hydromorphone HCl 0.25 mg Q4HPRN PRN IV 03/22/25 05:30 03/24/25 16:12 0.25 MG Diphenhydramine HCl 25 mg Q4HP PRN IV 03/22/25 05:30 03/22/25 05:40 25 MG Carvedilol 25 mg Q12HR PO 03/22/25 10:00 Amlodipine Besylate 10 mg DAILY PO 03/22/25 10:00 Lorazepam 0.5 mg ONCE PRN IV 03/22/25 21:00 Hold Clonidine HCl 0.2 mg Q8HR PO 03/23/25 22:00 Minoxidil 5 mg Q12HR PO 03/23/25 22:00 Prazosin HCl 1 mg Q12HR PO 03/23/25 22:00 Nicardipine HCl 250 ml @ 50 mls/hr Q5H IV 03/24/25 12:30 Cancel Nicardipine/ Sodium Chloride 200 ml @ 50 mls/hr Q4H IV 03/24/25 15:15 03/24/25 15:17 50 MLS/HR objective General Appearance: Alert, Other (Nonverbal no distress noted) HEENT: Atraumatic, PERRLA, EOMI, Mucous membranes. moist/pink Respiratory: Clear to auscultation, Normal air movement Cardiovascular: Regular rate, Normal S1, Normal S2, S4 gallop is present Abdominal: Normal bowel sounds, Soft, No tenderness, No hepatosplenomegaly, No masses Extremities: No clubbing, No cyanosis, Normal pulses, No tenderness/swelling, Other (The edema to bilateral hands) Skin: No rashes, No breakdown, No significant lesion Neuro: AAOx3 laboratory and microbiology Laboratory Tests 03/21/25 06:18 Test 03/21/25 06:18 Range/Units Serum Glucose 91 74-106 mg/dL Assessment/Plan ESRD on HD HTN Urgency Encephalopathy Anemia of CKD h/o CVA Plan: s/p HD this morning, net UF 2.5 L . no improvement in BP after dialysis continue HD on TTS schedule Transferred to ICU, and was started on Nicardipine drip he will need to take oral BP meds to take him off the drip. But it has been a challenge to get him to take them. For HTN please avoid overtreating, target SBP 160 mmHg for now is acceptable Continue current regimen:amlodipine, losartan, hydralazine and carvedilol, he is not "allergic to blood pressure medications", he tolerated all the meds well during the last hospitalization. Dietary Evaluation Review Comments: Nutrition Recommendation 1) Advance to renal standard diet as medically feasible 2) Consider TPN of NPO > 7 days 3) Nephro-lara 1 tab daily 4) Monitor PO intake, lab values, weight trend, and I/O Expected Outcomes/Goals: To meet >75% estimated needs Lab values to improve Fu 2-3 days Plan discussed with: Other GREGORY BEAVERS MD Mar 24, 2025 16:35
--- NOTE | 2025-03-24 20:50 | DVHPN2 ---
Progress Note - Dictate Date Seen: Mar 24, 2025 Has the PT tested + for MRSA If YES, has PT been informed?: No Medical Necessity Reason Pt with a Central, PICC or Fol: No Subjective Mr. Mercado is a 54 years old right-handed gentleman with a history of hypertension, hypothyroidism, chronic kidney failure, systemic inflammatory response syndrome, TIA, stroke with left-sided residual weakness, seizure, brain aneurysm, PTSD, he came to the [facility] on 03/20/25 with a chief complaint of ALOC. He was discharged to SNF on 03/19/2025. When I saw him on 03/17/2025, he was awake, oriented to person, place, he was able to talk with clear voice. At this time, he is awake, he tracks, he is responsive to verbal stimuli, but he does not vocalize, he keeps moving the arm, leg or rolling in the gurney. His relates the patient was further mentally altered when he was discharged to the SNF on 03/19/2025 I saw him in 07/2013 for headache, 08/05/15 for intractable headache, possible TIA, 12/17/2017 for stroke, 03/08/2025 for encephalopathy He was transferred to the ICU on 03/24/2025 for uncontrolled hypertension/hypertension urgency I have seen and examined the patient, I have talked to her nurse. He is awake, he responsive to my verbal stimuli, he does not vocalize, but he follows some verbal commands , he moves the arms and legs He talked to MRI staff Urinalysis, 02/26/2025: WBC: 4, urine leukocyte esterase: Negative Urinalysis, 03/20/2025: WBC: 12, urine leukocyte esterase: Negative Plasma alcohol, 03/20/2025: <3 ABG, 02/25/2025: Metabolic acidosis, 02/26/2025: Hypoxia, metabolic acidosis CBC, 02/21/2025, 10.7/13.1/154/83.9, 03/08/2025: 9.6/8.7/260/87.4, 03/20/2025: 7.9/9.3/397/90.8 PT/INR/ABG, 03/20/2025: 14.4/1.41/30 BUN/CR, 03/08/2025: 52/5.15, 03/20/2025: 36/9.16, 03/21/2025: 42/10.58 GFR, 03/08/2020 5:13 a.m. HCO3, 03/20/2025: 24, 03/21/2025: 23 Troponin one high sensitivity, 02/22/2025: 541, 1173, 2396, 4495, 5273, 03/20/2025: 137, 134, 134 TBI/AST/ALT/AP, 03/08/2025: 0.3/637/200/211, 03/20/2025: 0.3/36/69/88 TG/HDL/LDL/HDL, 02/22/2025: 249/177/96/30 Chest x-ray, 02/25/2025: 1. Endotracheal tube in place 6.4 cm above the ivan 2. Enteric tube below the diaphragm in the stomach. 3. Cardiopulmonary findings most likely secondary to congestive failure Chest x-ray, 03/08/2025: No significant change from the previous study. Stable support devices. Unchanged endotracheal tube, enteric tube, and right IJ catheter Chest x-ray 03/20/2025: He was on baby aspirin, but no statin because his cholesterol was normal CT head, 02/21/2025: 1. No acute intracranial abnormality. 2. Old lacunar infarct external capsule right basal ganglia CT head, 03/08/2025: No acute intracranial abnormality CT head, 03/20/2025: NO ACUTE INTRACRANIAL ABNORMALITY SEEN MRI head, 03/21/2025: Extremely limited examination secondary to extensive patient motion artifact and inability to complete full exam secondary to patient inability to tolerate full exam. There is nonspecific periventricular and subcortical T2/FLAIR hyperintense white matter changes. Differential includes: Demyelinating disease, chronic microangiopathic change, residua of migraine headaches or other postinflammatory residua. There is 1 punctate foci of possible restricted diffusion in the posterior left frontal lobe (image 41/52). This may represent a small embolic infarct versus artifact versus active demyelinating disease. Clinical correlation advised (I saw more possible DWI lesions, image 42, 43, 45) MRA head, 12/18/2017: Normal noncontrast MRA of the head vital signs Vital Sign Date Time Temp Pulse Resp B/P (MAP) Pulse Ox O2 Delivery O2 Flow Rate FiO2 8/19/25 19:50 138/92 03/24/25 18:45 117 15 95 03/24/25 18:00 97.6 97.6 03/24/25 17:10 Room Air* 0 21 Total Intake and Output 03/23/25 03/23/25 03/24/25 15:00 23:00 07:00 Intake Total 100 ml 150 ml Balance 100 ml 150 ml medications Current Medications Medications Dose Ordered Sig/Shayan Route Start Time Stop Time Status Last Admin Dose Admin Cefepime HCl 50 ml @ 12.5 mls/hr HS IV 03/20/25 22:00 03/23/25 20:54 12.5 MLS/HR Aspirin 81 mg DAILY PO 03/21/25 10:00 Prochlorperazine Edisylate 5 mg Q4HPRN PRN IV 03/21/25 13:00 Levothyroxine Sodium 35 mcg DAILY@0600 IV 03/22/25 06:00 Hold Hydromorphone HCl 0.25 mg Q4HPRN PRN IV 03/22/25 05:30 03/24/25 16:12 0.25 MG Diphenhydramine HCl 25 mg Q4HP PRN IV 03/22/25 05:30 03/22/25 05:40 25 MG Carvedilol 25 mg Q12HR PO 03/22/25 10:00 Amlodipine Besylate 10 mg DAILY PO 03/22/25 10:00 Lorazepam 0.5 mg ONCE PRN IV 03/22/25 21:00 Hold Clonidine HCl 0.2 mg Q8HR PO 03/23/25 22:00 Minoxidil 5 mg Q12HR PO 03/23/25 22:00 Prazosin HCl 1 mg Q12HR PO 03/23/25 22:00 Nicardipine HCl 250 ml @ 50 mls/hr Q5H IV 03/24/25 12:30 Cancel Nicardipine/ Sodium Chloride 200 ml @ 50 mls/hr Q4H IV 03/24/25 15:15 03/24/25 19:50 50 MLS/HR objective General: the patient is well developed and nourished. No acute distress. MENTAL STATUS: Subjective SPEECH, LANGUAGE, HIGHER CORTICAL FUNCTION: Subjective CRANIAL NERVES: Pupils are equal, round and reactive. EOMs full and conjugate. Facial sensation intact in all three divisions bilaterally. Mandibular strength intact. Facial muscles symmetrical and strength intact. SENSATION: Sensation to touch and pinprick is normal. MOTOR: Normal tone in the upper and lower extremity. Normal muscle bulk. No fasciculations. No abnormal movements or posturing. He moves the arms and legs REFLEXES: Deep tendon reflexes are stroke on the left side, arm: 3/4, ankle and knee: 4/4. No pathological reflexes. CEREBELLAR/COORDINATION: Deferred GAIT/STATION: deferred. laboratory and microbiology Laboratory Tests 03/21/25 06:18 Test 03/21/25 06:18 Range/Units Serum Glucose 91 74-106 mg/dL Problem List Altered mental status Metabolic encephalopathy Kidney failure on hemodialysis Multiple strokes/TIA with residual left-sided weakness Reports seizure disorder, not confirmed with his Polyneuropathy Elevated troponin one Possible multiple DWI lesion on 03/21/2025 Hypertension emergency Tachycardia Assessment/Plan Monitoring Supportive treatment Follow-up MR brain scan (he could not lay on the back for MRI scan) IV antibiotics Aspirin 81 mg daily GI prophylaxis/famotidine DVT prophylaxis Oxygen Antibiotics Will talk to Radiology Re: Possible multiple strokes on MRI More recommendation per clinical course This medical document was created using an electronic medical record system with [employer] a [employer] computerized dictation system. Although this document has been carefully reviewed, there may still be some phonetic and typographical errors. These areas are purely typographical due to imperfections of the software programs, and do not reflect any compromise in the patient's medical care. Prognosis poor Dietary Evaluation Review Comments: Nutrition Recommendation 1) Advance to renal standard diet as medically feasible 2) Consider TPN of NPO > 7 days 3) Nephro-lara 1 tab daily 4) Monitor PO intake, lab values, weight trend, and I/O Expected Outcomes/Goals: To meet >75% estimated needs Lab values to improve Fu 2-3 days Plan discussed with: Other ERASMO CHO MD Mar 24, 2025 20:50
[2025-03-24] MEDS: EPOETIN ALFA-EPBX 4,000 UNIT/ML VIAL SC ONE (21:00)
[2025-03-25] VITALS (96 sets, daily range): BP systolic 104–173; BP diastolic 59–103; PULSE 89–133; RESP 9–25; TEMP 97.8–98.7; O2SAT 86–100
[2025-03-25 08:36] LABS: Hematocrit 33.5 % (41.0-53.0); Hemoglobin 11.7 g/dL (13.5-17.5); Mean Corpuscular Hemoglobin 30.6 pg (28.0-32.0); Mean Corpuscular Volume 87.3 fL (80.0-100.0); Nucleated Red Blood Cells % 0.1 %
[2025-03-25 09:01] LABS: Chloride 100 mmol/L (98-107); Potassium 4.8 mmol/L (3.5-5.1); Sodium 143 mmol/L (136-145)
[2025-03-25 09:02] LABS: Anion Gap 21 (5-15); Carbon Dioxide 22 mmol/L (20-31)
[2025-03-25 09:07] LABS: BUN/Creatinine Ratio 3.9 (10.0-20.0); Glucose 88 mg/dL (74-106)
[2025-03-25 09:08] LABS: Magnesium 2.5 mg/dL (1.6-2.6)
[2025-03-25 09:09] LABS: Blood Urea Nitrogen 30 mg/dL (9-23); Calcium 12.5 mg/dL (8.7-10.4)
--- NOTE | 2025-03-25 10:42 | DVHPN2 ---
Progress Note - Dictate Date Seen: Mar 25, 2025 Has the PT tested + for MRSA If YES, has PT been informed?: No Medical Necessity Reason Pt with a Central, PICC or Fol: No Subjective Mr. Mercado is a 54 years old right-handed gentleman with a history of hypertension, hypothyroidism, chronic kidney failure, systemic inflammatory response syndrome, TIA, stroke with left-sided residual weakness, seizure, brain aneurysm, PTSD, he came to the [facility] on 03/20/25 with a chief complaint of ALOC. He was discharged to SNF on 03/19/2025. When I saw him on 03/17/2025, he was awake, oriented to person, place, he was able to talk with clear voice. I saw him in 07/2013 for headache, 08/05/15 for intractable headache, possible TIA, 12/17/2017 for stroke, 03/08/2025 for encephalopathy He was transferred to the ICU on 03/24/2025 for uncontrolled hypertension/hypertension urgency I have seen and examined the patient, I have talked to her nurse. He is awake, he responsive to my verbal stimuli, he follows, he does not vocalize, he moves the arms and legs, not able to tell if he has focal weakness He said simple words to his nurse this morning He talked to MRI staff on 03/24/2025 Urinalysis, 02/26/2025: WBC: 4, urine leukocyte esterase: Negative Urinalysis, 03/20/2025: WBC: 12, urine leukocyte esterase: Negative Plasma alcohol, 03/20/2025: <3 ABG, 02/25/2025: Metabolic acidosis, 02/26/2025: Hypoxia, metabolic acidosis CBC, 02/21/2025, 10.7/13.1/154/83.9, 03/08/2025: 9.6/8.7/260/87.4, 03/20/2025: 7.9/9.3/397/90.8 PT/INR/ABG, 03/20/2025: 14.4/1.41/30 BUN/CR, 03/08/2025: 52/5.15, 03/20/2025: 36/9.16, 03/21/2025: 42/10.58 GFR, 03/08/2020 5:13 a.m. HCO3, 03/20/2025: 24, 03/21/2025: 23 Troponin one high sensitivity, 02/22/2025: 541, 1173, 2396, 4495, 5273, 03/20/2025: 137, 134, 134 TBI/AST/ALT/AP, 03/08/2025: 0.3/637/200/211, 03/20/2025: 0.3/36/69/88 TG/HDL/LDL/HDL, 02/22/2025: 249/177/96/30 Chest x-ray, 02/25/2025: 1. Endotracheal tube in place 6.4 cm above the ivan 2. Enteric tube below the diaphragm in the stomach. 3. Cardiopulmonary findings most likely secondary to congestive failure Chest x-ray, 03/08/2025: No significant change from the previous study. Stable support devices. Unchanged endotracheal tube, enteric tube, and right IJ catheter Chest x-ray 03/20/2025: He was on baby aspirin, but no statin because his cholesterol was normal CT head, 02/21/2025: 1. No acute intracranial abnormality. 2. Old lacunar infarct external capsule right basal ganglia CT head, 03/08/2025: No acute intracranial abnormality CT head, 03/20/2025: NO ACUTE INTRACRANIAL ABNORMALITY SEEN MRI head, 03/21/2025: Extremely limited examination secondary to extensive patient motion artifact and inability to complete full exam secondary to patient inability to tolerate full exam. There is nonspecific periventricular and subcortical T2/FLAIR hyperintense white matter changes. Differential includes: Demyelinating disease, chronic microangiopathic change, residua of migraine headaches or other postinflammatory residua. There is 1 punctate foci of possible restricted diffusion in the posterior left frontal lobe (image 41/52). This may represent a small embolic infarct versus artifact versus active demyelinating disease. Clinical correlation advised (I saw more possible DWI lesions, image 42, 43, 45) MRA head, 12/18/2017: Normal noncontrast MRA of the head vital signs Vital Sign Date Time Temp Pulse Resp B/P (MAP) Pulse Ox O2 Delivery O2 Flow Rate FiO2 03/25/25 10:03 129/72 03/25/25 09:34 127 03/25/25 08:43 16 03/25/25 08:00 100 Room Air* 0 21 8/20/25 07:30 97.8 97.8 Total Intake and Output 03/24/25 03/24/25 03/25/25 15:00 23:00 07:00 Intake Total 775 ml 627.5 ml Output Total 0 ml Balance 775 ml 627.5 ml medications Current Medications Medications Dose Ordered Sig/Shayan Route Start Time Stop Time Status Last Admin Dose Admin Cefepime HCl 50 ml @ 12.5 mls/hr HS IV 03/20/25 22:00 03/23/25 20:54 12.5 MLS/HR Aspirin 81 mg DAILY PO 03/21/25 10:00 03/25/25 09:34 81 MG Prochlorperazine Edisylate 5 mg Q4HPRN PRN IV 03/21/25 13:00 Levothyroxine Sodium 35 mcg DAILY@0600 IV 03/22/25 06:00 Hold Hydromorphone HCl 0.25 mg Q4HPRN PRN IV 03/22/25 05:30 03/25/25 08:13 0.25 MG Diphenhydramine HCl 25 mg Q4HP PRN IV 03/22/25 05:30 03/22/25 05:40 25 MG Carvedilol 25 mg Q12HR PO 03/22/25 10:00 03/25/25 09:34 25 MG Amlodipine Besylate 10 mg DAILY PO 03/22/25 10:00 03/25/25 09:36 10 MG Lorazepam 0.5 mg ONCE PRN IV 03/22/25 21:00 Hold Clonidine HCl 0.2 mg Q8HR PO 03/23/25 22:00 Minoxidil 5 mg Q12HR PO 03/23/25 22:00 03/25/25 09:35 5 MG Prazosin HCl 1 mg Q12HR PO 03/23/25 22:00 03/25/25 09:35 1 MG Nicardipine HCl 250 ml @ 50 mls/hr Q5H IV 03/24/25 12:30 Cancel Nicardipine/ Sodium Chloride 200 ml @ 50 mls/hr Q4H IV 03/24/25 22:15 03/25/25 10:03 125 MLS/HR objective General: the patient is well developed and nourished. No acute distress. MENTAL STATUS: Subjective SPEECH, LANGUAGE, HIGHER CORTICAL FUNCTION: Subjective CRANIAL NERVES: Pupils are equal, round and reactive. EOMs full and conjugate. Facial sensation intact in all three divisions bilaterally. Mandibular strength intact. Facial muscles symmetrical and strength intact. SENSATION: Sensation to touch and pinprick is normal. MOTOR: Normal tone in the upper and lower extremity. Normal muscle bulk. No fasciculations. No abnormal movements or posturing. He moves the arms and legs REFLEXES: Deep tendon reflexes are stroke on the left side, arm: 3/4, ankle and knee: 4/4. No pathological reflexes. CEREBELLAR/COORDINATION: Deferred GAIT/STATION: deferred. laboratory and microbiology Laboratory Tests 03/25/25 08:10 Test 03/25/25 08:10 Range/Units Serum Glucose 88 74-106 mg/dL Problem List Altered mental status Metabolic encephalopathy Kidney failure on hemodialysis Multiple strokes/TIA with residual left-sided weakness Reports seizure disorder, not confirmed with his Polyneuropathy Elevated troponin one Possible multiple DWI lesion on 03/21/2025 Hypertension emergency Tachycardia Assessment/Plan Monitoring Supportive treatment Follow-up MR brain scan (he could not lay on the back for MRI scan) IV antibiotics HODA Aspirin 81 mg daily GI prophylaxis/famotidine DVT prophylaxis Oxygen Antibiotics Will talk to Radiology Re: Possible multiple strokes on MRI More recommendation per clinical course This medical document was created using an electronic medical record system with [employer] dictation system. Although this document has been carefully reviewed, there may still be some phonetic and typographical errors. These areas are purely typographical due to imperfections of the software programs, and do not reflect any compromise in the patient's medical care. Prognosis poor Dietary Evaluation Review Comments: Nutrition Recommendation 1) Advance to renal standard diet as medically feasible 2) Consider TPN of NPO > 7 days 3) Nephro-lara 1 tab daily 4) Monitor PO intake, lab values, weight trend, and I/O Expected Outcomes/Goals: To meet >75% estimated needs Lab values to improve Fu 2-3 days Plan discussed with: Other ERASMO CHO MD Mar 25, 2025 10:42
--- NOTE | 2025-03-25 15:47 | DVHPN2 ---
Assessment/Plan Assessment/Plan Progress note note 54 M with resistant HTN (with noted allergies but reported making him feel "very sick", no anaphylaxis hx), ESRD on HD, carotid artery stenosis s/p stenting, TIAs, thyroid disease. admited for AMS. seen today. starting oral po meds, titrating of cardene. family refused HODA physical exam on NC intermittently uncooperative, however alert, protecting airway, able to take meds PERLLA s1 s2 rrr clear breath sounds abdomen soft trace le edema labs ekg imaging reviewed assessment and plan ESRD on HD HTN emergency type 2 [place] demand ischemia and decreased renal clearance UTI? metabolic encephalopathy? PRESS? resume home meds cefepime MRI neuro consult diet puree dvt ppx heprain full doce critical care time 35 minutes condition cirtical prognosis poor Plan discussed with: Other My Orders Orders - DION ROSA MD Procedure Category Date Status Time Nicardipine Hcl In PHA 03/24/25 In Process Sodium Chlo (Cardene 22:15 Renal DIET 03/25/25 Transmitted Standard(2gna,3gk,Lopho) Lunch Date of Service: Mar 25, 2025 Billing Provider: DION ROSA MD Common Visit Codes: [id number] CARE 30-74 MIN DION ROSA MD Mar 25, 2025 15:47
--- NOTE | 2025-03-25 15:58 | DVHPN2 ---
Progress Note - Dictate Date Seen: Mar 25, 2025 Has the PT tested + for MRSA If YES, has PT been informed?: No Medical Necessity Reason Pt with a Central, PICC or Fol: No Subjective he has been transferred to ICU for HTN urgency vital signs Vital Sign Date Time Temp Pulse Resp B/P (MAP) Pulse Ox O2 Delivery O2 Flow Rate FiO2 03/25/25 15:15 105 11 141/89 (106) 03/25/25 14:30 95 03/25/25 12:15 Room Air* 0 21 03/25/25 07:30 97.8 97.8 Total Intake and Output 03/24/25 03/24/25 03/25/25 15:00 23:00 07:00 Intake Total 775 ml 627.5 ml Output Total 0 ml Balance 775 ml 627.5 ml medications Current Medications Medications Dose Ordered Sig/Shayan Route Start Time Stop Time Status Last Admin Dose Admin Cefepime HCl 50 ml @ 12.5 mls/hr HS IV 03/20/25 22:00 03/23/25 20:54 12.5 MLS/HR Aspirin 81 mg DAILY PO 03/21/25 10:00 03/25/25 09:34 81 MG Prochlorperazine Edisylate 5 mg Q4HPRN PRN IV 03/21/25 13:00 Levothyroxine Sodium 35 mcg DAILY@0600 IV 03/22/25 06:00 Hold Hydromorphone HCl 0.25 mg Q4HPRN PRN IV 03/22/25 05:30 03/25/25 08:13 0.25 MG Diphenhydramine HCl 25 mg Q4HP PRN IV 03/22/25 05:30 03/22/25 05:40 25 MG Carvedilol 25 mg Q12HR PO 03/22/25 10:00 03/25/25 09:34 25 MG Amlodipine Besylate 10 mg DAILY PO 03/22/25 10:00 03/25/25 09:36 10 MG Lorazepam 0.5 mg ONCE PRN IV 03/22/25 21:00 Hold Clonidine HCl 0.2 mg Q8HR PO 03/23/25 22:00 03/25/25 14:01 0.2 MG Minoxidil 5 mg Q12HR PO 03/23/25 22:00 03/25/25 09:35 5 MG Prazosin HCl 1 mg Q12HR PO 03/23/25 22:00 03/25/25 09:35 1 MG Nicardipine HCl 250 ml @ 50 mls/hr Q5H IV 03/24/25 12:30 Cancel Nicardipine/ Sodium Chloride 200 ml @ 50 mls/hr Q4H IV 03/24/25 22:15 03/25/25 10:03 125 MLS/HR objective General Appearance: Alert, Other (Nonverbal no distress noted) HEENT: Atraumatic, PERRLA, EOMI, Mucous membranes. moist/pink Respiratory: Clear to auscultation, Normal air movement Cardiovascular: Regular rate, Normal S1, Normal S2, S4 gallop is present Abdominal: Normal bowel sounds, Soft, No tenderness, No hepatosplenomegaly, No masses Extremities: No clubbing, No cyanosis, Normal pulses, No tenderness/swelling, Other (The edema to bilateral hands) Skin: No rashes, No breakdown, No significant lesion Neuro: AAOx3 laboratory and microbiology Laboratory Tests 03/25/25 08:10 Test 03/25/25 08:10 Range/Units Serum Glucose 88 74-106 mg/dL Assessment/Plan ESRD on HD HTN Urgency Encephalopathy Anemia of CKD h/o CVA Plan: s/p HD Sunday, net UF 2.5 L . Next HD on continue HD on TTS schedule Nicardipine drip he will need to take oral BP meds to take him off the drip. But it has been a challenge to get him to take them. For HTN please avoid overtreating, target SBP 160 mmHg for now is acceptable Continue current regimen:amlodipine, losartan, hydralazine and carvedilol, he is not "allergic to blood pressure medications", he tolerated all the meds well during the last hospitalization. Dietary Evaluation Review Comments: Nutrition Recommendation 1) Advance to renal standard diet as medically feasible 2) Consider TPN of NPO > 7 days 3) Nephro-lara 1 tab daily 4) Monitor PO intake, lab values, weight trend, and I/O Expected Outcomes/Goals: To meet >75% estimated needs Lab values to improve Fu 2-3 days Plan discussed with: Patient, Spouse, Other GREGORY EBAVERS MD Mar 25, 2025 15:58
[2025-03-26] VITALS (51 sets, daily range): BP systolic 109–181; BP diastolic 67–111; PULSE 89–115; RESP 11–24; TEMP 97.8–98.3; O2SAT 93–97
[2025-03-26 03:50] LABS: Alanine Aminotransferase 32 U/L (7-40); Albumin 3.6 g/dL (3.2-4.8); Alkaline Phosphatase 75 U/L (46-116); Anion Gap 18 (5-15); BUN/Creatinine Ratio 2.8 (10.0-20.0); Bilirubin, Total 0.5 mg/dL (0.2-1.0); Carbon Dioxide 22 mmol/L (20-31); Chloride 101 mmol/L (98-107); Glucose 81 mg/dL (74-106); Potassium 4.5 mmol/L (3.5-5.1); Sodium 141 mmol/L (136-145); Total Protein 6.1 g/dL (5.7-8.2)
[2025-03-26 04:24] LABS: Blood Urea Nitrogen 26 mg/dL (9-23); Calcium 11.7 mg/dL (8.7-10.4)
--- NOTE | 2025-03-26 06:28 | DVHPN2 ---
Progress Note - Dictate Date Seen: Mar 26, 2025 Has the PT tested + for MRSA If YES, has PT been informed?: No Medical Necessity Reason Pt with a Central, PICC or Fol: No Subjective he has been transferred to ICU for HTN urgency vital signs Vital Sign Date Time Temp Pulse Resp B/P (MAP) Pulse Ox O2 Delivery O2 Flow Rate FiO2 03/26/25 04:00 105 03/26/25 04:00 14 97 Room Air* 0 21 03/26/25 04:00 130/96 (107) 03/25/25 16:00 98.7 98.7 Total Intake and Output 03/25/25 03/25/25 03/26/25 15:00 23:00 07:00 Intake Total 860 ml 360 ml 50 ml Balance 860 ml 360 ml 50 ml medications Current Medications Medications Dose Ordered Sig/Shayan Route Start Time Stop Time Status Last Admin Dose Admin Cefepime HCl 50 ml @ 12.5 mls/hr HS IV 03/20/25 22:00 03/25/25 21:03 12.5 MLS/HR Aspirin 81 mg DAILY PO 03/21/25 10:00 03/25/25 09:34 81 MG Prochlorperazine Edisylate 5 mg Q4HPRN PRN IV 03/21/25 13:00 Levothyroxine Sodium 35 mcg DAILY@0600 IV 03/22/25 06:00 Hold Hydromorphone HCl 0.25 mg Q4HPRN PRN IV 03/22/25 05:30 03/25/25 08:13 0.25 MG Diphenhydramine HCl 25 mg Q4HP PRN IV 03/22/25 05:30 03/22/25 05:40 25 MG Carvedilol 25 mg Q12HR PO 03/22/25 10:00 03/25/25 21:02 25 MG Amlodipine Besylate 10 mg DAILY PO 03/22/25 10:00 03/25/25 09:36 10 MG Lorazepam 0.5 mg ONCE PRN IV 03/22/25 21:00 Hold Clonidine HCl 0.2 mg Q8HR PO 03/23/25 22:00 03/25/25 21:03 0.2 MG Minoxidil 5 mg Q12HR PO 03/23/25 22:00 03/25/25 21:01 5 MG Prazosin HCl 1 mg Q12HR PO 03/23/25 22:00 03/25/25 21:03 1 MG Nicardipine HCl 250 ml @ 50 mls/hr Q5H IV 03/24/25 12:30 Cancel Nicardipine/ Sodium Chloride 200 ml @ 50 mls/hr Q4H IV 03/24/25 22:15 03/25/25 10:03 125 MLS/HR objective General Appearance: Alert, Other (Nonverbal no distress noted) HEENT: Atraumatic, PERRLA, EOMI, Mucous membranes. moist/pink Respiratory: Clear to auscultation, Normal air movement Cardiovascular: Regular rate, Normal S1, Normal S2, S4 gallop is present Abdominal: Normal bowel sounds, Soft, No tenderness, No hepatosplenomegaly, No masses Extremities: No clubbing, No cyanosis, Normal pulses, No tenderness/swelling, Other (The edema to bilateral hands) Skin: No rashes, No breakdown, No significant lesion Neuro: AAOx3 laboratory and microbiology Laboratory Tests 03/26/25 02:38 Test 03/26/25 02:38 Range/Units Serum Glucose 81 74-106 mg/dL Assessment/Plan ESRD on HD via tunneled catheter HTN Urgency Encephalopathy Anemia of CKD h/o CVA Plan: Scheduled for HD today () last HD Sunday, net UF 2.5 L . continue HD on TTS schedule Nicardipine drip has been off. Took oral BP meds yesterday and tolerated well. Continue current antihypertensive regimen, he is not "allergic to blood pressure medications", he tolerated all the meds well Dietary Evaluation Review Comments: Nutrition Recommendation 1) Advance to renal standard diet as medically feasible 2) Consider TPN of NPO > 7 days 3) Nephro-lara 1 tab daily 4) Monitor PO intake, lab values, weight trend, and I/O Expected Outcomes/Goals: To meet >75% estimated needs Lab values to improve Fu 2-3 days Plan discussed with: Other GREGORY BEAVERS MD Mar 26, 2025 06:28
[2025-03-26] MEDS: SODIUM CHL 0.9% 1000 ML BAG XX ONE (07:00)
[2025-03-26 09:42] LABS: Hematocrit 31.5 % (41.0-53.0); Hemoglobin 10.8 g/dL (13.5-17.5); Mean Corpuscular Hemoglobin 30.0 pg (28.0-32.0); Mean Corpuscular Volume 87.4 fL (80.0-100.0); Nucleated Red Blood Cells % 0.1 %
--- NOTE | 2025-03-26 10:39 | DVHPN2 ---
Progress Note - Dictate Date Seen: Mar 26, 2025 Has the PT tested + for MRSA If YES, has PT been informed?: No Medical Necessity Reason Pt with a Central, PICC or Fol: No Subjective Mr. Mercado is a 54 years old right-handed gentleman with a history of hypertension, hypothyroidism, chronic kidney failure, systemic inflammatory response syndrome, TIA, stroke with left-sided residual weakness, seizure, brain aneurysm, PTSD, he came to the [facility] on 03/20/25 with a chief complaint of ALOC. He was discharged to SNF on 03/19/2025. When I saw him on 03/17/2025, he was awake, oriented to person, place, he was able to talk with clear voice. I saw him in 07/2013 for headache, 08/05/15 for intractable headache, possible TIA, 12/17/2017 for stroke, 03/08/2025 for encephalopathy He was transferred to the ICU on 03/24/2025 for uncontrolled hypertension/hypertension urgency I have seen and examined the patient, I have talked to her nurse. He is awake, he follows verbal commands, he says simple words, he moves the arms and legs He continue left flat for MRI on 03/24/25 Urinalysis, 02/26/2025: WBC: 4, urine leukocyte esterase: Negative Urinalysis, 03/20/2025: WBC: 12, urine leukocyte esterase: Negative Plasma alcohol, 03/20/2025: <3 ABG, 02/25/2025: Metabolic acidosis, 02/26/2025: Hypoxia, metabolic acidosis CBC, 02/21/2025, 10.7/13.1/154/83.9, 03/08/2025: 9.6/8.7/260/87.4, 03/20/2025: 7.9/9.3/397/90.8 PT/INR/ABG, 03/20/2025: 14.4/1.41/30 BUN/CR, 03/08/2025: 52/5.15, 03/20/2025: 36/9.16, 03/21/2025: 42/10.58 GFR, 03/08/2020 5:13 a.m. HCO3, 03/20/2025: 24, 03/21/2025: 23 Troponin one high sensitivity, 02/22/2025: 541, 1173, 2396, 4495, 5273, 03/20/2025: 137, 134, 134 TBI/AST/ALT/AP, 03/08/2025: 0.3/637/200/211, 03/20/2025: 0.3/36/69/88 TG/HDL/LDL/HDL, 02/22/2025: 249/177/96/30 Chest x-ray, 02/25/2025: 1. Endotracheal tube in place 6.4 cm above the ivan 2. Enteric tube below the diaphragm in the stomach. 3. Cardiopulmonary findings most likely secondary to congestive failure Chest x-ray, 03/08/2025: No significant change from the previous study. Stable support devices. Unchanged endotracheal tube, enteric tube, and right IJ catheter Chest x-ray 03/20/2025: He was on baby aspirin, but no statin because his cholesterol was normal CT head, 02/21/2025: 1. No acute intracranial abnormality. 2. Old lacunar infarct external capsule right basal ganglia CT head, 03/08/2025: No acute intracranial abnormality CT head, 03/20/2025: NO ACUTE INTRACRANIAL ABNORMALITY SEEN MRI head, 03/21/2025: Extremely limited examination secondary to extensive patient motion artifact and inability to complete full exam secondary to patient inability to tolerate full exam. There is nonspecific periventricular and subcortical T2/FLAIR hyperintense white matter changes. Differential includes: Demyelinating disease, chronic microangiopathic change, residua of migraine headaches or other postinflammatory residua. There is 1 punctate foci of possible restricted diffusion in the posterior left frontal lobe (image 41/52). This may represent a small embolic infarct versus artifact versus active demyelinating disease. Clinical correlation advised (I saw more possible DWI lesions, image 42, 43, 45) MRA head, 12/18/2017: Normal noncontrast MRA of the head vital signs Vital Sign Date Time Temp Pulse Resp B/P (MAP) Pulse Ox O2 Delivery O2 Flow Rate FiO2 03/26/25 07:15 106 13 140/80 (100) 95 03/26/25 06:00 Room Air* 0 21 03/25/25 16:00 98.7 98.7 Total Intake and Output 03/25/25 03/25/25 03/26/25 15:00 23:00 07:00 Intake Total 860 ml 360 ml 350 ml Balance 860 ml 360 ml 350 ml medications Current Medications Medications Dose Ordered Sig/Shayan Route Start Time Stop Time Status Last Admin Dose Admin Cefepime HCl 50 ml @ 12.5 mls/hr HS IV 03/20/25 22:00 03/25/25 21:03 12.5 MLS/HR Aspirin 81 mg DAILY PO 03/21/25 10:00 03/25/25 09:34 81 MG Prochlorperazine Edisylate 5 mg Q4HPRN PRN IV 03/21/25 13:00 Levothyroxine Sodium 35 mcg DAILY@0600 IV 03/22/25 06:00 Hold Hydromorphone HCl 0.25 mg Q4HPRN PRN IV 03/22/25 05:30 03/25/25 08:13 0.25 MG Diphenhydramine HCl 25 mg Q4HP PRN IV 03/22/25 05:30 03/22/25 05:40 25 MG Carvedilol 25 mg Q12HR PO 03/22/25 10:00 03/25/25 21:02 25 MG Amlodipine Besylate 10 mg DAILY PO 03/22/25 10:00 03/25/25 09:36 10 MG Lorazepam 0.5 mg ONCE PRN IV 03/22/25 21:00 Hold Clonidine HCl 0.2 mg Q8HR PO 03/23/25 22:00 03/25/25 21:03 0.2 MG Minoxidil 5 mg Q12HR PO 03/23/25 22:00 03/25/25 21:01 5 MG Prazosin HCl 1 mg Q12HR PO 03/23/25 22:00 03/25/25 21:03 1 MG Nicardipine HCl 250 ml @ 50 mls/hr Q5H IV 03/24/25 12:30 Cancel Nicardipine/ Sodium Chloride 200 ml @ 50 mls/hr Q4H IV 03/24/25 22:15 03/25/25 10:03 125 MLS/HR objective General: the patient is well developed and nourished. No acute distress. MENTAL STATUS: Subjective SPEECH, LANGUAGE, HIGHER CORTICAL FUNCTION: Subjective CRANIAL NERVES: Pupils are equal, round and reactive. EOMs full and conjugate. Facial sensation intact in all three divisions bilaterally. Mandibular strength intact. Facial muscles symmetrical and strength intact. SENSATION: Sensation to touch and pinprick is normal. MOTOR: Normal tone in the upper and lower extremity. Normal muscle bulk. No fasciculations. No abnormal movements or posturing. He moves the arms and legs REFLEXES: Deep tendon reflexes are stroke on the left side, arm: 3/4, ankle and knee: 4/4. No pathological reflexes. CEREBELLAR/COORDINATION: Deferred GAIT/STATION: deferred. laboratory and microbiology Laboratory Tests 03/26/25 09:26 03/26/25 02:38 Test 03/26/25 02:38 Range/Units Serum Glucose 81 74-106 mg/dL Problem List Altered mental status Metabolic encephalopathy Kidney failure on hemodialysis Multiple strokes/TIA with residual left-sided weakness Reports seizure disorder, not confirmed with his Polyneuropathy Elevated troponin one Possible multiple DWI lesion on 03/21/2025 Hypertension emergency Tachycardia Assessment/Plan Monitoring Supportive treatment Follow-up MR brain scan (he could not lay on the back for MRI scan) IV antibiotics HODA Aspirin 81 mg daily GI prophylaxis/famotidine DVT prophylaxis Oxygen Antibiotics Will talk to Radiology Re: Possible multiple strokes on MRI More recommendation per clinical course This medical document was created using an electronic medical record system with [employer] computerized dictation system. Although this document has been carefully reviewed, there may still be some phonetic and typographical errors. These areas are purely typographical due to imperfections of the software programs, and do not reflect any compromise in the patient's medical care. Prognosis poor Dietary Evaluation Review Comments: Nutrition Recommendation 1) Advance to renal standard diet as medically feasible 2) Consider TPN of NPO > 7 days 3) Nephro-lara 1 tab daily 4) Monitor PO intake, lab values, weight trend, and I/O Expected Outcomes/Goals: To meet >75% estimated needs Lab values to improve Fu 2-3 days Plan discussed with: Other ERASMO CHO MD Mar 26, 2025 10:39
[2025-03-26] MEDS ORDERED: clonazePAM 0.5 MG TAB PO PRN (13:45)
--- NOTE | 2025-03-26 13:48 | DVHPN2 ---
Assessment/Plan Assessment/Plan Progress note note 54 M with resistant HTN (with noted allergies but reported making him feel "very sick", no anaphylaxis hx), ESRD on HD, carotid artery stenosis s/p stenting, TIAs, thyroid disease. admited for AMS. seen today. improved, hd today. plan with to dc home with home health instead of snf. physical exam on NC intermittently uncooperative, however alert, protecting airway, able to take meds PERLLA s1 s2 rrr clear breath sounds abdomen soft trace le edema labs ekg imaging reviewed assessment and plan ESRD on HD HTN emergency type 2 [place] demand ischemia and decreased renal clearance UTI? metabolic encephalopathy? PRESS? resume home meds cefepime MRI neuro consult diet puree dvt ppx heprain full doce condition cirtical prognosis poor Plan discussed with: Patient My Orders Orders - DION ROSA MD Procedure Category Date Status Time Transfer Orders XFER 03/25/25 Transmitted 15:58 Clonazepam Tablet PHA 03/26/25 Logged (Klonopin Tablet) 13:45 Basic Metabolic Panel LAB 03/27/25 Verified 04:00 Complete Blood Count LAB 03/27/25 Verified 04:00 Date of Service: Mar 26, 2025 Billing Provider: DION ROSA MD Common Visit Codes: [id number] INP/OBS CARE(HIGH) DION ROSA MD Mar 26, 2025 13:48
[2025-03-27] VITALS (8 sets, daily range): BP systolic 111–136; BP diastolic 74–88; PULSE 83–97; RESP 17–20; TEMP 97.5–98.9; O2SAT 94–96
--- NOTE | 2025-03-27 08:17 | DVHPN2 ---
Assessment/Plan Assessment/Plan Progress note note 54 M with resistant HTN (with noted allergies but reported making him feel "very sick", no anaphylaxis hx), ESRD on HD, carotid artery stenosis s/p stenting, TIAs, thyroid disease. admited for AMS. seen today. pending HH auth physical exam on NC intermittently uncooperative, however alert, protecting airway, able to take meds PERLLA s1 s2 rrr clear breath sounds abdomen soft trace le edema labs ekg imaging reviewed assessment and plan ESRD on HD HTN emergency type 2 AR demand ischemia and decreased renal clearance UTI? metabolic encephalopathy? PRESS? resume home meds cefepime MRI neuro consult diet puree dvt ppx heprain full doce condition cirtical prognosis poor Plan discussed with: Patient, Spouse My Orders Orders - DION ROSA MD Procedure Category Date Status Time Clonazepam Tablet PHA 03/26/25 In Process (Klonopin Tablet) 13:45 Basic Metabolic Panel LAB 03/27/25 Logged 04:00 Complete Blood Count LAB 03/27/25 Logged 04:00 * Ladle Liner CONS 03/26/25 Transmitted Consult Communication Order ORDERS 03/26/25 Transmitted 16:09 Date of Service: Mar 27, 2025 Billing Provider: DION ROSA MD Common Visit Codes: [id number] INP/OBS CARE(HIGH) DION ROSA MD Mar 27, 2025 08:17
[2025-03-27 09:03] LABS: Hematocrit 28.8 % (41.0-53.0); Hemoglobin 9.8 g/dL (13.5-17.5); Mean Corpuscular Hemoglobin 30.2 pg (28.0-32.0); Mean Corpuscular Volume 88.2 fL (80.0-100.0); Nucleated Red Blood Cells % 0.2 %
[2025-03-27 09:06] LABS: Chloride 99 mmol/L (98-107); Potassium 4.3 mmol/L (3.5-5.1); Sodium 140 mmol/L (136-145)
[2025-03-27 09:07] LABS: Anion Gap 14 (5-15); Carbon Dioxide 27 mmol/L (20-31)
[2025-03-27 09:12] LABS: BUN/Creatinine Ratio 2.8 (10.0-20.0); Blood Urea Nitrogen 16 mg/dL (9-23); Glucose 93 mg/dL (74-106)
[2025-03-27 09:13] LABS: Calcium 11.3 mg/dL (8.7-10.4)
--- NOTE | 2025-03-27 16:15 | DVHPN2 ---
Progress Note - Dictate Date Seen: Mar 27, 2025 Has the PT tested + for MRSA If YES, has PT been informed?: No Medical Necessity Reason Pt with a Central, PICC or Fol: No Subjective he has been transferred to ICU for HTN urgency vital signs Vital Sign Date Time Temp Pulse Resp B/P (MAP) Pulse Ox O2 Delivery O2 Flow Rate FiO2 03/27/25 13:03 98.3 89 20 120/75 (90) 94 98.3 03/26/25 20:00 Room Air* 0 21 Total Intake and Output 03/26/25 03/26/25 03/27/25 15:00 23:00 07:00 Intake Total 360 ml 0 ml 600 ml Balance 360 ml 0 ml 600 ml medications Current Medications Medications Dose Ordered Sig/Shayan Route Start Time Stop Time Status Last Admin Dose Admin Cefepime HCl 50 ml @ 12.5 mls/hr HS IV 03/20/25 22:00 03/26/25 22:18 12.5 MLS/HR Aspirin 81 mg DAILY PO 03/21/25 10:00 03/27/25 09:44 81 MG Prochlorperazine Edisylate 5 mg Q4HPRN PRN IV 03/21/25 13:00 Levothyroxine Sodium 35 mcg DAILY@0600 IV 03/22/25 06:00 Hold Hydromorphone HCl 0.25 mg Q4HPRN PRN IV 03/22/25 05:30 03/25/25 08:13 0.25 MG Diphenhydramine HCl 25 mg Q4HP PRN IV 03/22/25 05:30 03/22/25 05:40 25 MG Carvedilol 25 mg Q12HR PO 03/22/25 10:00 03/27/25 09:44 25 MG Amlodipine Besylate 10 mg DAILY PO 03/22/25 10:00 03/27/25 09:44 10 MG Clonidine HCl 0.2 mg Q8HR PO 03/23/25 22:00 03/27/25 06:32 0.2 MG Minoxidil 5 mg Q12HR PO 03/23/25 22:00 03/27/25 09:43 5 MG Prazosin HCl 1 mg Q12HR PO 03/23/25 22:00 03/27/25 09:45 1 MG Nicardipine HCl 250 ml @ 50 mls/hr Q5H IV 03/24/25 12:30 Cancel Nicardipine/ Sodium Chloride 200 ml @ 50 mls/hr Q4H IV 03/24/25 22:15 03/25/25 10:03 125 MLS/HR Clonazepam 0.25 mg Q12HP PRN PO 03/26/25 13:45 objective General Appearance: Alert, Other (Nonverbal no distress noted) HEENT: Atraumatic, PERRLA, EOMI, Mucous membranes. moist/pink Respiratory: Clear to auscultation, Normal air movement Cardiovascular: Regular rate, Normal S1, Normal S2, S4 gallop is present Abdominal: Normal bowel sounds, Soft, No tenderness, No hepatosplenomegaly, No masses Extremities: No clubbing, No cyanosis, Normal pulses, No tenderness/swelling, Other (The edema to bilateral hands) Skin: No rashes, No breakdown, No significant lesion Neuro: AAOx3 laboratory and microbiology Laboratory Tests 03/27/25 07:30 Test 03/27/25 07:30 Range/Units Serum Glucose 93 74-106 mg/dL Assessment/Plan ESRD on HD via tunneled catheter HTN Urgency Encephalopathy Anemia of CKD h/o CVA Plan: s/p HD Next HD on Sunday continue HD on TTS schedule Continue current antihypertensive regimen, he is not "allergic to blood pressure medications", he has tolerated all the meds well. Dietary Evaluation Review Comments: Nutrition Recommendation 1) Advance to renal standard diet as medically feasible 2) Consider TPN of NPO > 7 days 3) Nephro-lara 1 tab daily 4) Monitor PO intake, lab values, weight trend, and I/O Expected Outcomes/Goals: To meet >75% estimated needs Lab values to improve Fu 2-3 days Plan discussed with: Patient, Other GREGORY BEAVERS MD Mar 27, 2025 16:15
[2025-03-28] VITALS (7 sets, daily range): BP systolic 107–144; BP diastolic 70–86; PULSE 75–100; RESP 15–18; TEMP 97.9–99.3; O2SAT 95–96
--- NOTE | 2025-03-28 09:43 | DVHPN2 ---
Progress Note - Dictate Date Seen: Mar 28, 2025 Has the PT tested + for MRSA If YES, has PT been informed?: No Medical Necessity Reason Pt with a Central, PICC or Fol: No Subjective he has been transferred to ICU for HTN urgency vital signs Vital Sign Date Time Temp Pulse Resp B/P (MAP) Pulse Ox O2 Delivery O2 Flow Rate FiO2 03/28/25 08:42 98.8 89 15 114/74 (87) 95 98.8 03/27/25 20:00 Room Air* 0 21 Total Intake and Output 03/27/25 03/27/25 03/28/25 15:00 23:00 07:00 Intake Total 460 ml 525 ml Output Total 200 ml Balance 260 ml 525 ml medications Current Medications Medications Dose Ordered Sig/Shayan Route Start Time Stop Time Status Last Admin Dose Admin Cefepime HCl 50 ml @ 12.5 mls/hr HS IV 03/20/25 22:00 03/27/25 22:42 12.5 MLS/HR Aspirin 81 mg DAILY PO 03/21/25 10:00 03/27/25 09:44 81 MG Prochlorperazine Edisylate 5 mg Q4HPRN PRN IV 03/21/25 13:00 Levothyroxine Sodium 35 mcg DAILY@0600 IV 03/22/25 06:00 Hold Hydromorphone HCl 0.25 mg Q4HPRN PRN IV 03/22/25 05:30 03/27/25 18:03 0.25 MG Diphenhydramine HCl 25 mg Q4HP PRN IV 03/22/25 05:30 03/22/25 05:40 25 MG Carvedilol 25 mg Q12HR PO 03/22/25 10:00 03/27/25 22:46 25 MG Amlodipine Besylate 10 mg DAILY PO 03/22/25 10:00 03/27/25 09:44 10 MG Clonidine HCl 0.2 mg Q8HR PO 03/23/25 22:00 03/28/25 05:27 0.2 MG Minoxidil 5 mg Q12HR PO 03/23/25 22:00 03/27/25 22:45 5 MG Prazosin HCl 1 mg Q12HR PO 03/23/25 22:00 03/27/25 22:47 1 MG Nicardipine HCl 250 ml @ 50 mls/hr Q5H IV 03/24/25 12:30 Cancel Clonazepam 0.25 mg Q12HP PRN PO 03/26/25 13:45 objective General Appearance: Alert, Other (Nonverbal no distress noted) HEENT: Atraumatic, PERRLA, EOMI, Mucous membranes. moist/pink Respiratory: Clear to auscultation, Normal air movement Cardiovascular: Regular rate, Normal S1, Normal S2, S4 gallop is present Abdominal: Normal bowel sounds, Soft, No tenderness, No hepatosplenomegaly, No masses Extremities: No clubbing, No cyanosis, Normal pulses, No tenderness/swelling, Other (The edema to bilateral hands) Skin: No rashes, No breakdown, No significant lesion Neuro: AAOx3 laboratory and microbiology Laboratory Tests 03/27/25 07:30 Test 03/27/25 07:30 Range/Units Serum Glucose 93 74-106 mg/dL Assessment/Plan ESRD on HD via tunneled catheter HTN Urgency Encephalopathy Anemia of CKD h/o CVA Plan: Scheduled for HD today s/p HD continue HD on TTS schedule Continue current antihypertensive regimen, he is not "allergic to blood pressure medications", he has tolerated all the meds well. Continue Minoxidil, Amlodpine, and Coreg Continue Clonidine 0.2 mg PO TID as needed for SBP > 160 mmHg Cleared for DC after dialysis Dietary Evaluation Review Comments: Nutrition Recommendation 1) Advance to renal standard diet as medically feasible 2) Consider TPN of NPO > 7 days 3) Nephro-lara 1 tab daily 4) Monitor PO intake, lab values, weight trend, and I/O Expected Outcomes/Goals: To meet >75% estimated needs Lab values to improve Fu 2-3 days Plan discussed with: Patient GREGORY BEAVERS MD Mar 28, 2025 09:43
--- NOTE | 2025-03-28 13:26 | DVHPN2 ---
Reviewed: Care Plan, H&P, Labs, Medications Changes from previous H/P or p: No Changes General: Per HPI Eyes: No Pain, No Vision change, No Conjunctivae inflammation, No Eyelid inflammation, No Other, No Redness ENT: No Ear pain, No Ear discharge, No Nose pain, No Nose discharge, No Nose congestion, No Mouth pain, No Mouth swelling, No Throat pain, No Throat swelling, No Other Cardiovascular: No Chest Pain, No Palpitations, No Orthopnea, No Paroxysmal Noc. Dyspnea, No Edema, No Lt Headedness, No Other Respiratory: No Cough, No Dry, No Shortness of breath, No SOB with excertion, No Wheezing, No Hemoptysis, No Pleuritic Pain, No Sputum, No Other Gastrointestinal: No Nausea, No Vomiting, No Abdominal Pain, No Diarrhea, No Constipation, No Melena, No Hematochezia, No Other Genitourinary: No Dysuria, No Frequency, No Incontinence, No Hematuria, No Retention, No Other Musculoskeletal: No other, No neck pain, No shoulder pain, No arm pain, No back pain, No hand pain, No leg pain, No foot pain Skin: No Rash, No Lesions, No Jaundice, No Bruising, No Other Objective Vitals Vital Signs Date Time Temp Pulse Resp B/P (MAP) Pulse Ox O2 Delivery O2 Flow Rate FiO2 03/28/25 12:54 99.0 94 17 111/70 (84) 95 99.0 03/28/25 08:00 Room Air* 0 21 Intake/Output Intake and Output 03/28/25 07:00 Intake Total 985 ml Output Total 200 ml Balance 785 ml Intake Oral 935 ml IV Total 50 ml Output Urine Total 200 ml General Appearance: Alert, Other (Patient encephalopathic) HEENT: Atraumatic, PERRLA Lungs: Clear to auscultation, Normal air movement Cardiovascular: Normal S1, Normal S2 Abdomen: Normal bowel sounds, Soft, No tenderness Musculoskeletal: Other (Unable to follow commands) Neuro: Other (Non-verbal) Skin: Dry, Intact Psych/Mental Status: Other (Non-verbal) Medications Current Medications Medications Dose Ordered Sig/Shayan Route Start Time Stop Time Status Last Admin Dose Admin Cefepime HCl 50 ml @ 12.5 mls/hr HS IV 03/20/25 22:00 03/27/25 22:42 12.5 MLS/HR Aspirin 81 mg DAILY PO 03/21/25 10:00 03/27/25 09:44 81 MG Prochlorperazine Edisylate 5 mg Q4HPRN PRN IV 03/21/25 13:00 Levothyroxine Sodium 35 mcg DAILY@0600 IV 03/22/25 06:00 Hold Hydromorphone HCl 0.25 mg Q4HPRN PRN IV 03/22/25 05:30 03/27/25 18:03 0.25 MG Diphenhydramine HCl 25 mg Q4HP PRN IV 03/22/25 05:30 03/22/25 05:40 25 MG Carvedilol 25 mg Q12HR PO 03/22/25 10:00 03/27/25 22:46 25 MG Amlodipine Besylate 10 mg DAILY PO 03/22/25 10:00 03/27/25 09:44 10 MG Clonidine HCl 0.2 mg Q8HR PO 03/23/25 22:00 03/28/25 05:27 0.2 MG Minoxidil 5 mg Q12HR PO 03/23/25 22:00 03/27/25 22:45 5 MG Prazosin HCl 1 mg Q12HR PO 03/23/25 22:00 03/27/25 22:47 1 MG Nicardipine HCl 250 ml @ 50 mls/hr Q5H IV 03/24/25 12:30 Cancel Clonazepam 0.25 mg Q12HP PRN PO 03/26/25 13:45 Laboratory Results Laboratory Tests 03/27/25 07:30 Urinalysis Test 03/20/25 17:00 Urine Color Light-yellow (Yellow) Urine Clarity Clear (Clear) Urine pH 8.0 (5.0-9.0) Urine Specific [place] 1.008 (1.001-1.035) Urine Protein 1+ (Negative) H Urine Ketones Negative (Negative) Urine Blood 3+ /uL (Negative) H Urine Nitrite Negative (Negative) Urine Bilirubin Negative (Negative) Urine Urobilinogen Normal mg/dL (Negative) Urine Leukocyte Esterase Negative /uL (Negative) Urine RBC 9 /hpf (0 - 3) Urine Microscopic WBC 12 /HPF (0-3) H Urine Squamous Epithelial Cells None seen /hpf (<5) Urine Bacteria Many /hpf (None Seen) H Urine Sperm Present /hpf (None Seen) Urine Glucose Trace mg/dL (Normal) Microbiology Microbiology Date/Time Source Procedure Growth Status 03/20/25 11:55 Blood Blood Culture - Final NO GROWTH AFTER 5 DAYS OF INCUBATION. Complete Labs and/or images reviewed: Labs reviewed by me, Image(s) reviewed by me Assessment/Plan Assessment/Plan Covering for Dr. Caputo ESRD on HD HTN emergency type 2 NE demand ischemia Chronic kidney disease Possible UTI: Cefepime, blood cultures negative Acute metabolic encephalopathy Cordelia at bedside Plan discussed with: Patient My Orders Orders - MERI ANDREW MD Procedure Category Date Status Time Renal DIET 03/28/25 Transmitted Standard(2gna,3gk,Lopho) Lunch Date of Service: Mar 28, 2025 Billing Provider: MERI ANDREW MD Common Visit Codes: [id number] INP/OBS CARE(HIGH) MERI ANDREW MD Mar 28, 2025 13:26
--- NOTE | 2025-03-28 21:19 | DVHPN2 ---
Progress Note - Dictate Date Seen: Mar 28, 2025 Has the PT tested + for MRSA If YES, has PT been informed?: No Medical Necessity Reason Pt with a Central, PICC or Fol: No Subjective Mr. Mercado is a 54 years old right-handed gentleman with a history of hypertension, hypothyroidism, chronic kidney failure, systemic inflammatory response syndrome, TIA, stroke with left-sided residual weakness, seizure, brain aneurysm, PTSD, he came to the [facility] on 03[facility]20[facility]25 with a chief complaint of ALOC. He was discharged to SNF on 03/19/2025. When I saw him on 03/17/2025, he was awake, oriented to person, place, he was able to talk with clear voice. I saw him in 07/2013 for headache, 08/05/15 for intractable headache, possible TIA, 12/17/2017 for stroke, 03/08/2025 for encephalopathy I have seen and examined the patient, I have talked to her nurse, in the room. He is awake, oriented to person, place, he knows year, he follows verbal commands, he talks, he moves the arms and the legs He is going through hemodialysis He could not lay flat for MRI on 03/24/25 Urinalysis, 02/26/2025: WBC: 4, urine leukocyte esterase: Negative Urinalysis, 03/20/2025: WBC: 12, urine leukocyte esterase: Negative Plasma alcohol, 03/20/2025: <3 ABG, 02/25/2025: Metabolic acidosis, 02/26/2025: Hypoxia, metabolic acidosis CBC, 02/21/2025, 10.7/13.1/154/83.9, 03/08/2025: 9.6/8.7/260/87.4, 03/20/2025: 7.9/9.3/397/90.8 PT/INR/ABG, 03/20/2025: 14.4/1.41/30 BUN/CR, 03/08/2025: 52/5.15, 03/20/2025: 36/9.16, 03/21/2025: 42/10.58 GFR, 03/08/2020 5:13 a.m. HCO3, 03/20/2025: 24, 03/21/2025: 23 Troponin one high sensitivity, 02/22/2025: 541, 1173, 2396, 4495, 5273, 03/20/2025: 137, 134, 134 TBI/AST/ALT/AP, 03/08/2025: 0.3/637/200/211, 03/20/2025: 0.3/36/69/88 TG/HDL/LDL/HDL, 02/22/2025: 249/177/96/30 Chest x-ray, 02/25/2025: 1. Endotracheal tube in place 6.4 cm above the ivan 2. Enteric tube below the diaphragm in the stomach. 3. Cardiopulmonary findings most likely secondary to congestive failure Chest x-ray, 03/08/2025: No significant change from the previous study. Stable support devices. Unchanged endotracheal tube, enteric tube, and right IJ catheter Chest x-ray 03/20/2025: He was on baby aspirin, but no statin because his cholesterol was normal CT head, 02/21/2025: 1. No acute intracranial abnormality. 2. Old lacunar infarct external capsule right basal ganglia CT head, 03/08/2025: No acute intracranial abnormality CT head, 03/20/2025: NO ACUTE INTRACRANIAL ABNORMALITY SEEN MRI head, 03/21/2025: Extremely limited examination secondary to extensive patient motion artifact and inability to complete full exam secondary to patient inability to tolerate full exam. There is nonspecific periventricular and subcortical T2/FLAIR hyperintense white matter changes. Differential includes: Demyelinating disease, chronic microangiopathic change, residua of migraine headaches or other postinflammatory residua. There is 1 punctate foci of possible restricted diffusion in the posterior left frontal lobe (image 41/52). This may represent a small embolic infarct versus artifact versus active demyelinating disease. Clinical correlation advised (I saw more possible DWI lesions, image 42, 43, 45) MRA head, 12/18/2017: Normal noncontrast MRA of the head vital signs Vital Sign Date Time Temp Pulse Resp B/P (MAP) Pulse Ox O2 Delivery O2 Flow Rate FiO2 03/28/25 17:00 99.3 94 17 129/86 (100) 96 99.3 03/28/25 08:00 Room Air* 0 21 Total Intake and Output 03/27/25 03/27/25 03/28/25 15:00 23:00 07:00 Intake Total 460 ml 525 ml Output Total 200 ml Balance 260 ml 525 ml medications Current Medications Medications Dose Ordered Sig/Shayan Route Start Time Stop Time Status Last Admin Dose Admin Cefepime HCl 50 ml @ 12.5 mls/hr HS IV 03/20/25 22:00 03/27/25 22:42 12.5 MLS/HR Aspirin 81 mg DAILY PO 03/21/25 10:00 03/27/25 09:44 81 MG Prochlorperazine Edisylate 5 mg Q4HPRN PRN IV 03/21/25 13:00 Levothyroxine Sodium 35 mcg DAILY@0600 IV 03/22/25 06:00 Hold Hydromorphone HCl 0.25 mg Q4HPRN PRN IV 03/22/25 05:30 03/27/25 18:03 0.25 MG Diphenhydramine HCl 25 mg Q4HP PRN IV 03/22/25 05:30 03/22/25 05:40 25 MG Carvedilol 25 mg Q12HR PO 03/22/25 10:00 03/27/25 22:46 25 MG Amlodipine Besylate 10 mg DAILY PO 03/22/25 10:00 03/27/25 09:44 10 MG Clonidine HCl 0.2 mg Q8HR PO 03/23/25 22:00 03/28/25 05:27 0.2 MG Minoxidil 5 mg Q12HR PO 03/23/25 22:00 03/27/25 22:45 5 MG Prazosin HCl 1 mg Q12HR PO 03/23/25 22:00 03/27/25 22:47 1 MG Nicardipine HCl 250 ml @ 50 mls/hr Q5H IV 03/24/25 12:30 Cancel Clonazepam 0.25 mg Q12HP PRN PO 03/26/25 13:45 objective General: the patient is well developed and nourished. No acute distress. MENTAL STATUS: Subjective SPEECH, LANGUAGE, HIGHER CORTICAL FUNCTION: Subjective CRANIAL NERVES: Pupils are equal, round and reactive. EOMs full and conjugate. Facial sensation intact in all three divisions bilaterally. Mandibular strength intact. Facial muscles symmetrical and strength intact. SENSATION: Sensation to touch and pinprick is normal. MOTOR: Normal tone in the upper and lower extremity. Normal muscle bulk. No fasciculations. No abnormal movements or posturing. He moves the arms and legs REFLEXES: Deep tendon reflexes are stroke on the left side, arm: 3/4, ankle and knee: 4/4. No pathological reflexes. CEREBELLAR/COORDINATION: Deferred GAIT/STATION: deferred. laboratory and microbiology Laboratory Tests 03/27/25 07:30 Test 03/27/25 07:30 Range/Units Serum Glucose 93 74-106 mg/dL Problem List Altered mental status Metabolic encephalopathy Kidney failure on hemodialysis Multiple strokes/TIA with residual left-sided weakness Reports seizure disorder, not confirmed with his Polyneuropathy Elevated troponin one Possible multiple DWI lesions on 03/21/2025 Hypertension emergency Tachycardia Assessment/Plan Monitoring Supportive treatment Follow-up MR brain scan (he could not lay on the back for MRI scan) IV antibiotics HODA Aspirin 81 mg daily GI prophylaxis/famotidine DVT prophylaxis Oxygen Antibiotics Will talk to Radiology Re: Possible multiple strokes on MRI More recommendation per clinical course This medical document was created using an electronic medical record system with [employer] computerized dictation system. Although this document has been carefully reviewed, there may still be some phonetic and typographical errors. These areas are purely typographical due to imperfections of the software programs, and do not reflect any compromise in the patient's medical care. Dietary Evaluation Review Comments: Nutrition Recommendation 1) Advance to renal standard diet as medically feasible 2) Consider TPN of NPO > 7 days 3) Nephro-lara 1 tab daily 4) Monitor PO intake, lab values, weight trend, and I/O Expected Outcomes/Goals: To meet >75% estimated needs Lab values to improve Fu 2-3 days Plan discussed with: Spouse, Other ERASMO CHO MD Mar 28, 2025 21:18
[2025-03-29] VITALS (8 sets, daily range): BP systolic 91–124; BP diastolic 48–84; PULSE 83–99; RESP 16–18; TEMP 98.1–99; O2SAT 92–98
--- NOTE | 2025-03-29 10:09 | DVHPN2 ---
Reviewed: Care Plan, H&P, Labs, Medications Changes from previous H/P or p: No Changes General: Per HPI Eyes: No Pain, No Vision change, No Conjunctivae inflammation, No Eyelid inflammation, No Other, No Redness ENT: No Ear pain, No Ear discharge, No Nose pain, No Nose discharge, No Nose congestion, No Mouth pain, No Mouth swelling, No Throat pain, No Throat swelling, No Other Cardiovascular: No Chest Pain, No Palpitations, No Orthopnea, No Paroxysmal Noc. Dyspnea, No Edema, No Lt Headedness, No Other Respiratory: No Cough, No Dry, No Shortness of breath, No SOB with excertion, No Wheezing, No Hemoptysis, No Pleuritic Pain, No Sputum, No Other Gastrointestinal: No Nausea, No Vomiting, No Abdominal Pain, No Diarrhea, No Constipation, No Melena, No Hematochezia, No Other Genitourinary: No Dysuria, No Frequency, No Incontinence, No Hematuria, No Retention, No Other Musculoskeletal: No other, No neck pain, No shoulder pain, No arm pain, No back pain, No hand pain, No leg pain, No foot pain Skin: No Rash, No Lesions, No Jaundice, No Bruising, No Other Objective Vitals Vital Signs Date Time Temp Pulse Resp B/P (MAP) Pulse Ox O2 Delivery O2 Flow Rate FiO2 03/29/25 08:59 98.1 85 17 91/48 (62) 92 98.1 03/28/25 20:00 Room Air* 0 21 Intake/Output Intake and Output 03/29/25 07:00 Intake Total 1230 ml Output Total 400 ml Balance 830 ml Intake Oral 1180 ml IV Total 50 ml Output Urine Total 400 ml General Appearance: Alert, Other (Patient encephalopathic) HEENT: Atraumatic, PERRLA Lungs: Clear to auscultation, Normal air movement Cardiovascular: Normal S1, Normal S2 Abdomen: Normal bowel sounds, Soft, No tenderness Musculoskeletal: Other (Unable to follow commands) Neuro: Other (Non-verbal) Skin: Dry, Intact Psych/Mental Status: Other (Non-verbal) Medications Current Medications Medications Dose Ordered Sig/Shayan Route Start Time Stop Time Status Last Admin Dose Admin Cefepime HCl 50 ml @ 12.5 mls/hr HS IV 03/20/25 22:00 03/28/25 23:39 12.5 MLS/HR Aspirin 81 mg DAILY PO 03/21/25 10:00 03/27/25 09:44 81 MG Prochlorperazine Edisylate 5 mg Q4HPRN PRN IV 03/21/25 13:00 Levothyroxine Sodium 35 mcg DAILY@0600 IV 03/22/25 06:00 Hold Hydromorphone HCl 0.25 mg Q4HPRN PRN IV 03/22/25 05:30 03/28/25 23:17 0.25 MG Diphenhydramine HCl 25 mg Q4HP PRN IV 03/22/25 05:30 03/22/25 05:40 25 MG Carvedilol 25 mg Q12HR PO 03/22/25 10:00 03/28/25 23:41 25 MG Amlodipine Besylate 10 mg DAILY PO 03/22/25 10:00 03/27/25 09:44 10 MG Clonidine HCl 0.2 mg Q8HR PO 03/23/25 22:00 03/29/25 06:48 0.2 MG Minoxidil 5 mg Q12HR PO 03/23/25 22:00 03/28/25 23:42 5 MG Prazosin HCl 1 mg Q12HR PO 03/23/25 22:00 03/28/25 23:43 1 MG Nicardipine HCl 250 ml @ 50 mls/hr Q5H IV 03/24/25 12:30 Cancel Clonazepam 0.25 mg Q12HP PRN PO 03/26/25 13:45 Laboratory Results Laboratory Tests 03/27/25 07:30 Urinalysis Test 03/20/25 17:00 Urine Color Light-yellow (Yellow) Urine Clarity Clear (Clear) Urine pH 8.0 (5.0-9.0) Urine Specific [place] 1.008 (1.001-1.035) Urine Protein 1+ (Negative) H Urine Ketones Negative (Negative) Urine Blood 3+ /uL (Negative) H Urine Nitrite Negative (Negative) Urine Bilirubin Negative (Negative) Urine Urobilinogen Normal mg/dL (Negative) Urine Leukocyte Esterase Negative /uL (Negative) Urine RBC 9 /hpf (0 - 3) Urine Microscopic WBC 12 /HPF (0-3) H Urine Squamous Epithelial Cells None seen /hpf (<5) Urine Bacteria Many /hpf (None Seen) H Urine Sperm Present /hpf (None Seen) Urine Glucose Trace mg/dL (Normal) Microbiology Microbiology Date/Time Source Procedure Growth Status 03/20/25 11:55 Blood Blood Culture - Final NO GROWTH AFTER 5 DAYS OF INCUBATION. Complete Labs and/or images reviewed: Labs reviewed by me, Image(s) reviewed by me Assessment/Plan Assessment/Plan Covering for Dr. Caputo ESRD on HD HTN emergency type 2 CT demand ischemia Chronic kidney disease Possible UTI: Cefepime, blood cultures negative Acute metabolic encephalopathy Cordelia at bedside Plan discussed with: Patient My Orders Orders - MERI ANDREW MD Procedure Category Date Status Time Renal DIET 03/28/25 Transmitted Standard(2gna,3gk,Lopho) Dinner Date of Service: Mar 29, 2025 Billing Provider: MERI ANDREW MD Common Visit Codes: [id number] INP/OBS CARE(HIGH) MERI ANDREW MD Mar 29, 2025 10:09
--- NOTE | 2025-03-29 10:30 | DVHINCON2 ---
[facility] 03/29/25 1030: Date Seen: Mar 29, 2025 Referring Physician MD Arsenio Reason for Consultation Evaluation for MARI History of Present Illness This is a 54-year-old male patient who presents to emergency room with chief complaint of altered level of mentation. At the time of assessment, the patient remains confused. He is awake and alert. When asked to verify his name, patient repeats "Emily Mercado". Patient believes he is currently at a dialysis center and is unable to state the year or month. No family at bedside at time of assessment. History obtained per medical records. Cardiology has been consulted at this time by Neurology for MARI evaluation. Initial twelve lead electrocardiogram reveals sinus tachycardia this is nonspecific T-wave inversion to inferior leads. Initial troponin level of 137ng/L with flat trend thereafter. Significant medical history includes malignant/resistant hypertension, hypertriglyceridemia, carotid artery stenosis with stent placement in 2004, TIAs x15, end-stage renal disease on hemodialysis, thyroid disease, and PTSD. The patient follows up with cut off tender glass Dr. Dumont in the outpatient setting. Past Medical History Past medical history reviewed. No other significant than mentioned above. Past Surgical History Carotid artery stenosis with stent placement in 2004 Appendectomy Family History: Cancer G8 BROTHER FH: brain tumor 19 CHILD FH: breast cancer G8 MOTHER FH: lung cancer G8 FATHER Kidney stones G8 FATHER Seizure disorder (situation) 19 CHILD Family History Family history reviewed. Social History Denies the use of tobacco, alcohol or illicit drugs. Allergies: Coded Allergies: Codeine (Verified Allergy, Severe, ANAPHYLAXIS, VOMITING, 02/22/25) Lorazepam (Verified Allergy, Severe, AIRWAY CONSTRICTION, 03/21/25) Mirtazapine (Verified Allergy, Severe, ANAPHYLAXIS , 02/22/25) Morphine (Verified Allergy, Severe, VOMITING, RASH, 02/22/25) Phenobarbital (Verified Allergy, Severe, ANAPHYLAXIS, 02/22/25) Tramadol (Unverified Allergy, Severe, vomiting, 02/22/25) Acetaminophen (Verified Allergy, Intermediate, RASH, NAUSEOUS, 02/22/25) Hydralazine (Verified Allergy, Intermediate, VOMITING, 02/22/25) Levetiracetam (Verified Allergy, Intermediate, DISORIENTED, LETHARGIC, VOMITING, 02/22/25) Levothyroxine (Verified Allergy, Intermediate, vomiting, 02/22/25) Methyldopa (Verified Allergy, Intermediate, VOMITING, 02/22/25) Phenytoin (Verified Allergy, Intermediate, 05/13/10) BREAKS OUT IN WELTS Prochlorperazine (Verified Allergy, Intermediate, vomiting, 02/22/25) Prazosin (Verified Allergy, Unknown, VOMITING, LETHARGY, 02/25/25) Alprazolam (Verified Adverse Reaction, Intermediate, vomiting, 02/21/25) Amlodipine (Verified Adverse Reaction, Intermediate, vomiting, 02/21/25) Ciprofloxacin (Verified Adverse Reaction, Intermediate, vomiting, 02/21/25) Enalapril (Verified Adverse Reaction, Intermediate, vomiting, 02/21/25) Famotidine (Verified Adverse Reaction, Intermediate, VOMITING, 02/22/25) Finerenone (Verified Adverse Reaction, Intermediate, VOMITING, 02/22/25) Furosemide (Verified Adverse Reaction, Intermediate, VOMITING, 02/22/25) Gabapentin (Verified Adverse Reaction, Intermediate, vomiting, headache, 02/21/25) Hydrochlorothiazide (Verified Adverse Reaction, Intermediate, vomiting, 02/21/25) Hydrocodone (Verified Adverse Reaction, Intermediate, vomiting, headache, 02/21/25) Labetalol (Verified Adverse Reaction, Intermediate, VOMITING, 02/22/25) Losartan (Verified Adverse Reaction, Intermediate, vomiting, 02/21/25) Magnesium Oxide (Verified Adverse Reaction, Intermediate, vomiting, ) Methocarbamol (Verified Adverse Reaction, Intermediate, VOMITING, 02/22/25) Metoprolol (Verified Adverse Reaction, Intermediate, vomiting, 02/21/25) Nifedipine (Verified Adverse Reaction, Intermediate, VOMITING, 02/22/25) Nitrofurantoin (Verified Adverse Reaction, Intermediate, VOMITING, 02/22/25) Omeprazole (Verified Adverse Reaction, Intermediate, vomiting, 02/21/25) Ondansetron (Verified Adverse Reaction, Intermediate, VOMITING, 02/22/25) Oxycodone (Verified Adverse Reaction, Intermediate, VOMITING, 02/22/25) Pantoprazole (Verified Adverse Reaction, Intermediate, vomiting, 02/21/25) Potassium Chloride (Verified Adverse Reaction, Intermediate, vomiting, 02/21/25) Rizatriptan (Verified Adverse Reaction, Intermediate, VOMITING, 02/22/25) Sucralfate (Verified Adverse Reaction, Intermediate, vomiting, 02/21/25) Sumatriptan (Verified Adverse Reaction, Intermediate, vomiting, 02/21/25) Tizanidine (Verified Adverse Reaction, Intermediate, VOMITING, LETHARGIC , 02/22/25) Trazodone (Verified Adverse Reaction, Intermediate, severe headache, 02/21/25) Uncoded Allergies: ALL B/P MEDS EXCEPT CLONIDINE (Allergy, Unknown, 02/22/25) ALL PO BP MEDSCAN TAKE CLONIDINE PATCH Home Meds Active Scripts Isosorbide Dinitrate (Isosorbide Dinitrate) 10 Mg Tab, 20 MG PO TID@06,12,18, #90 TAB Prov:HODA JAIN MD 04/22/20 Hydralazine HCl (Hydralazine HCl) 25 Mg Tab, 25 MG PO Q6HR, #120 TAB Prov:HODA JAIN MD 04/22/20 Reported Medications Prochlorperazine Maleate (Compazine) 10 Mg Tb, 10 MG IM QIDP for nausea/ vomiting, TAB 03/04/25 Omeprazole (Gnp Omeprazole) 20 Mg Tab, 40 MG PO, TAB 03/14/21 Hydroxyzine Hcl (Hydroxyzine Hcl) 25 Mg Tab, 25 MG PO for 30 Days, MG 03/14/21 Potassium Chloride (Klor-Con 8) 8 Meq Tab, 8 MEQ PO, TAB 03/14/21 Labetalol Hcl (Labetalol Hcl) 300 Mg Tab, 300 MG PO for 30 Days, MG 03/14/21 Aspirin (Aspir-Low) 81 Mg Tab, 81 MG PO DAILY for 30 Days, MG 04/19/20 Discontinued Reported Medications Furosemide (Furosemide) 40 Mg Tab, 40 MG PO DAILY for 30 Days 03/14/21 Nifedipine (Nifedipine Er) 90 Mg Tab, 1 TAB PO DAILY, #30 TAB 5 Refills 03/14/21 Oxycodone W/ Acetaminophen (Percocet 5/325MG) 1 Tab Tb, 1 TAB PO QID, #120 TAB 03/14/21 Home Meds Home medications reviewed. Review of Systems Constitutional: No symptom reported Ears, Nose, & Throat: No symptom reported Eyes: No symptom reported Neurological: Altered level of mentation Pulmonary/Respiratory: No symptoms reported Cardiovascular: No symptom reported Gastrointestinal: No symptom reported Genitourinary: No symptom reported Musculoskeletal: No symptom reported Skin: No symptom reported Psychiatric: No symptom reported Endocrine: No symptom reported Hematologic/Lymphatic: No symptom reported Vital Signs Vital Signs Date Time Temp Pulse Resp B/P (MAP) Pulse Ox O2 Delivery O2 Flow Rate FiO2 03/29/25 08:59 98.1 85 17 91/48 (62) 92 98.1 03/28/25 20:00 Room Air* 0 21 Physical Exam General Appearance: Cooperative. Well-developed. Well-nourished. No acute distress. Pulmonary/Respiratory: Clear, bilateral breaths sounds. Cardiovascular/Chest: Regular rate and rhythm. Peripheral Pulses: 2+ Radial (R). 2+ Radial (L). 1+ Pedal (R). 1+ Pedal (L) Abdominal Exam: Normal bowel sounds. Ankle Exam: Negative ankle edema Lower extremities: Negative lower extremity edema Neuro/Mental Status: A/OX1, confused Thoughts/Psych: Deferred Appearance: No acute distress. Skin Exam: Normal inspection. Normal color. Warm and dry. Labs/Diagnostic Data Labs Test 03/27/25 07:30 03/26/25 02:38 03/25/25 08:10 03/22/25 06:12 Range/Units White Blood Count 3.6 #L 4.4-10.8 10^3/uL Red Blood Count 3.26 L 4.5-5.90 10^6/uL Hemoglobin 9.8 L 13.5-17.5 g/dL Hematocrit 28.8 L 41.0-53.0 % Mean Corpuscular Volume 88.2 80.0-100.0 fL Mean Corpuscular Hemoglobin 30.2 28.0-32.0 pg Mean Corpuscular Hemoglobin Concent 34.2 32.0-36.0 g/dL Red Cell Distribution Width 13.6 11.8-14.3 % Platelet Count 192 140-450 10^3/uL Mean Platelet Volume 7.2 6.9-10.8 fL Neutrophils (%) (Auto) 51.3 37.0-80.0 % Lymphocytes (%) (Auto) 26.5 10.0-50.0 % Monocytes (%) (Auto) 10.2 0.0-12.0 % Eosinophils (%) (Auto) 8.2 H 0.0-7.0 % Basophils (%) (Auto) 3.8 H 0.0-2.0 % Neutrophils # (Auto) 1.8 1.6-8.6 10 ^3/uL Lymphocytes # (Auto) 0.9 0.4-5.4 10 ^3/uL Monocytes # (Auto) 0.4 0-1.3 10 ^3/uL Eosinophils # (Auto) 0.3 0-0.8 10 ^3/uL Basophils # (Auto) 0.1 0-0.2 10 ^3/uL Nucleated Red Blood Cells 0.2 % Sodium Level 140 136-145 mmol/L Potassium Level 4.3 3.5-5.1 mmol/L Chloride Level 99 98-107 mmol/L Carbon Dioxide Level 27 20-31 mmol/L Anion Gap 14 5-15 Blood Urea Nitrogen 16 # 9-23 mg/dL Creatinine 5.78 #H 0.700-1.30 mg/dL Glomerular Filtration Rate Calc 11 >90 mL/min BUN/Creatinine Ratio 2.8 L 10.0-20.0 Serum Glucose 93 74-106 mg/dL Calcium Level 11.3 H 8.7-10.4 mg/dL Total Bilirubin 0.5 0.2-1.0 mg/dL Aspartate Amino Transferase (AST) 22 13-40 U/L Alanine Aminotransferase (ALT) 32 7-40 U/L Alkaline Phosphatase 75 46-116 U/L Total Protein 6.1 5.7-8.2 g/dL Albumin 3.6 3.2-4.8 g/dL Phosphorus Level 9.4 H 2.4-5.1 mg/dL Magnesium Level 2.5 1.6-2.6 mg/dL POC Glucose 95 70-106 mg/dl Test 03/22/25 02:06 03/20/25 18:44 03/20/25 17:00 03/20/25 15:15 Range/Units Thyroid Stimulating Hormone (TSH) 3.10 0.55-4.78 uIU/mL Ammonia < 10 L 11-32 umol/L Urine Color Light-yellow Yellow Urine Clarity Clear Clear Urine pH 8.0 5.0-9.0 Urine Specific Cedar 1.008 1.001-1.035 Urine Protein 1+ H Negative Urine Ketones Negative Negative Urine Blood 3+ H Negative /uL Urine Nitrite Negative Negative Urine Bilirubin Negative Negative Urine Urobilinogen Normal Negative mg/dL Urine Leukocyte Esterase Negative Negative /uL Urine RBC 9 0 - 3 /hpf Urine Microscopic WBC 12 H 0-3 /HPF Urine Squamous Epithelial Cells None seen <5 /hpf Urine Bacteria Many H None Seen /hpf Urine Sperm Present None Seen /hpf Urine Glucose Trace Normal mg/dL Troponin I High Sensitivity 134 *H </=54 ng/L Test 03/20/25 12:05 Range/Units Prothrombin Time 14.4 H 9.3-11.8 sec Prothrombin Time INR 1.41 H 0.9-1.15 Activated Partial Thromboplast Time 30.0 24.5-34.5 SEC Lactic Acid Level 0.9 0.4-2.0 mmol/L B-Type Natriuretic Peptide 507.44 0-100 pg/mL Plasma/Serum Blood Alcohol < 3.0 <10 mg/dL Microbiology Date/Time Source Procedure Growth Status 03/20/25 11:55 Blood Blood Culture - Final NO GROWTH AFTER 5 DAYS OF INCUBATION. Complete Assessment Hypertensive emergency NSTEMI, likely type 2 History of carotid artery stenosis with stent placement Hypertriglyceridemia End-stage renal disease on hemodialysis Thyroid disease HX of multiple TIAs Plan/Recommendation We will continue with the following plan/recommendations (Dr. Dumont): Case discussed with . A transthoracic echocardiogram from 02/22/2025 reveals an EF of 65%. Imaging reports reviewed with . Head CT is negative for acute intracranial abnormalities. Brain MRI is nonspecific and limited due to patient inability to tolerate full exam. No definitive diagnosis of CVA per imaging. Given these findings as well as the fact that patient is extremely confused, the patient is not a candidate for a transesophageal echocardiogram at this time. There is no further inpatient cardiac workup indicated at this time. Continue with antihypertensive medications as chad rated. Cardiology will sign off. Thank you for allowing us to care for this patient. Please call with any questions or concerns. Critical care time spent: 44 minutes This medical document was created using an electronic medical record system with voice recognition software and computerized dictation system. Although this document has been carefully reviewed, there might still be some phonetic and typographical errors. Occasional wrong-word or ``sound-alike substitutions may have occurred due to the inherent limitations of voice recognition software. These areas are purely typographical due to imperfections of the software programs and do not reflect any compromise in the patient's medical care. Please read the chart carefully and recognize, using context, where these substitutions have occurred. Plan discussed with: Patient, Other NYHA Physical activity limitations: NA Date of Service: Mar 29, 2025 Billing Provider: [facility] Common Codes: 48011-UNBVXLK INP/OBS CARE (High) Cardiology Consultation Codes: [id number] CONSULT <45MIN GRANT DUMONT MD 03/30/25 0957: Family History: Cancer G8 BROTHER FH: brain tumor 19 CHILD FH: breast cancer G8 MOTHER FH: lung cancer G8 FATHER Kidney stones G8 FATHER Seizure disorder (situation) 19 CHILD Allergies: Coded Allergies: Codeine (Verified Allergy, Severe, ANAPHYLAXIS, VOMITING, 02/22/25) Lorazepam (Verified Allergy, Severe, AIRWAY CONSTRICTION, 03/21/25) Mirtazapine (Verified Allergy, Severe, ANAPHYLAXIS , 02/22/25) Morphine (Verified Allergy, Severe, VOMITING, RASH, 02/22/25) Phenobarbital (Verified Allergy, Severe, ANAPHYLAXIS, 02/22/25) Tramadol (Unverified Allergy, Severe, vomiting, 02/22/25) Acetaminophen (Verified Allergy, Intermediate, RASH, NAUSEOUS, 02/22/25) Hydralazine (Verified Allergy, Intermediate, VOMITING, 02/22/25) Levetiracetam (Verified Allergy, Intermediate, DISORIENTED, LETHARGIC, VOMITING, 02/22/25) Levothyroxine (Verified Allergy, Intermediate, vomiting, 02/22/25) Methyldopa (Verified Allergy, Intermediate, VOMITING, 02/22/25) Phenytoin (Verified Allergy, Intermediate, 05/13/10) BREAKS OUT IN WELTS Prochlorperazine (Verified Allergy, Intermediate, vomiting, 02/22/25) Prazosin (Verified Allergy, Unknown, VOMITING, LETHARGY, 02/25/25) Alprazolam (Verified Adverse Reaction, Intermediate, vomiting, 02/21/25) Amlodipine (Verified Adverse Reaction, Intermediate, vomiting, 02/21/25) Ciprofloxacin (Verified Adverse Reaction, Intermediate, vomiting, 02/21/25) Enalapril (Verified Adverse Reaction, Intermediate, vomiting, 02/21/25) Famotidine (Verified Adverse Reaction, Intermediate, VOMITING, 02/22/25) Finerenone (Verified Adverse Reaction, Intermediate, VOMITING, 02/22/25) Furosemide (Verified Adverse Reaction, Intermediate, VOMITING, 02/22/25) Gabapentin (Verified Adverse Reaction, Intermediate, vomiting, headache, 02/21/25) Hydrochlorothiazide (Verified Adverse Reaction, Intermediate, vomiting, 02/21/25) Hydrocodone (Verified Adverse Reaction, Intermediate, vomiting, headache, 02/21/25) Labetalol (Verified Adverse Reaction, Intermediate, VOMITING, 02/22/25) Losartan (Verified Adverse Reaction, Intermediate, vomiting, 02/21/25) Magnesium Oxide (Verified Adverse Reaction, Intermediate, vomiting, 02/21/25) Methocarbamol (Verified Adverse Reaction, Intermediate, VOMITING, 02/22/25) Metoprolol (Verified Adverse Reaction, Intermediate, vomiting, 02/21/25) Nifedipine (Verified Adverse Reaction, Intermediate, VOMITING, 02/22/25) Nitrofurantoin (Verified Adverse Reaction, Intermediate, VOMITING, 02/22/25) Omeprazole (Verified Adverse Reaction, Intermediate, vomiting, 02/21/25) Ondansetron (Verified Adverse Reaction, Intermediate, VOMITING, 02/22/25) Oxycodone (Verified Adverse Reaction, Intermediate, VOMITING, 02/22/25) Pantoprazole (Verified Adverse Reaction, Intermediate, vomiting, 02/21/25) Potassium Chloride (Verified Adverse Reaction, Intermediate, vomiting, 02/21/25) Rizatriptan (Verified Adverse Reaction, Intermediate, VOMITING, 02/22/25) Sucralfate (Verified Adverse Reaction, Intermediate, vomiting, 02/21/25) Sumatriptan (Verified Adverse Reaction, Intermediate, vomiting, 02/21/25) Tizanidine (Verified Adverse Reaction, Intermediate, VOMITING, LETHARGIC , 02/22/25) Trazodone (Verified Adverse Reaction, Intermediate, severe headache, 02/21/25) Uncoded Allergies: ALL B/P MEDS EXCEPT CLONIDINE (Allergy, Unknown, 02/22/25) ALL PO BP MEDSCAN TAKE CLONIDINE PATCH Home Meds Active Scripts Isosorbide Dinitrate (Isosorbide Dinitrate) 10 Mg Tab, 20 MG PO TID@06,12,18, #90 TAB Prov:HODA JAIN MD 04/22/20 Hydralazine HCl (Hydralazine HCl) 25 Mg Tab, 25 MG PO Q6HR, #120 TAB Prov:HODA JAIN MD 04/22/20 Reported Medications Prochlorperazine Maleate (Compazine) 10 Mg Tb, 10 MG IM QIDP for nausea/ vomiting, TAB 03/04/25 Omeprazole (Gnp Omeprazole) 20 Mg Tab, 40 MG PO, TAB 03/14/21 Hydroxyzine Hcl (Hydroxyzine Hcl) 25 Mg Tab, 25 MG PO for 30 Days, MG 03/14/21 Potassium Chloride (Klor-Con 8) 8 Meq Tab, 8 MEQ PO, TAB 03/14/21 Labetalol Hcl (Labetalol Hcl) 300 Mg Tab, 300 MG PO for 30 Days, MG 03/14/21 Aspirin (Aspir-Low) 81 Mg Tab, 81 MG PO DAILY for 30 Days, MG 04/19/20 Discontinued Reported Medications Furosemide (Furosemide) 40 Mg Tab, 40 MG PO DAILY for 30 Days 03/14/21 Nifedipine (Nifedipine Er) 90 Mg Tab, 1 TAB PO DAILY, #30 TAB 5 Refills 03/14/21 Oxycodone W/ Acetaminophen (Percocet 5/325MG) 1 Tab Tb, 1 TAB PO QID, #120 TAB 03/14/21 Plan/Recommendation ct and mri are poor quality suboptimal normal echo in past cont tele would hold off on mari right now given his numerous health issues, HD, malignant HTN, variious amounts of allergies if clinical change, would re consider it Plan discussed with: Patient [facility] KELLEY Mar 29, 2025 10:30 GRANT DUMONT MD Mar 30, 2025 09:57
[2025-03-29] MEDS: SODIUM CHL 0.9% 1000 ML BAG XX ONE (11:17)
[2025-03-29] MEDS: SODIUM CHLORIDE 0.9% 1,000 ML IV ONE (11:19)
--- NOTE | 2025-03-29 13:23 | DVHPN2 ---
Progress Note - Dictate Date Seen: Mar 29, 2025 Has the PT tested + for MRSA If YES, has PT been informed?: No Medical Necessity Reason Pt with a Central, PICC or Fol: No Subjective no new symptoms vital signs Vital Sign Date Time Temp Pulse Resp B/P (MAP) Pulse Ox O2 Delivery O2 Flow Rate FiO2 03/29/25 12:45 98.1 85 16 91/50 (64) 94 98.1 03/28/25 20:00 Room Air* 0 21 Total Intake and Output 03/28/25 03/28/25 03/29/25 15:00 23:00 07:00 Intake Total 700 ml 530 ml Output Total 400 ml Balance 300 ml 530 ml medications Current Medications Medications Dose Ordered Sig/Shayan Route Start Time Stop Time Status Last Admin Dose Admin Cefepime HCl 50 ml @ 12.5 mls/hr HS IV 03/20/25 22:00 03/28/25 23:39 12.5 MLS/HR Aspirin 81 mg DAILY PO 03/21/25 10:00 03/27/25 09:44 81 MG Prochlorperazine Edisylate 5 mg Q4HPRN PRN IV 03/21/25 13:00 Levothyroxine Sodium 35 mcg DAILY@0600 IV 03/22/25 06:00 Hold Hydromorphone HCl 0.25 mg Q4HPRN PRN IV 03/22/25 05:30 03/28/25 23:17 0.25 MG Diphenhydramine HCl 25 mg Q4HP PRN IV 03/22/25 05:30 03/22/25 05:40 25 MG Carvedilol 25 mg Q12HR PO 03/22/25 10:00 03/28/25 23:41 25 MG Amlodipine Besylate 10 mg DAILY PO 03/22/25 10:00 03/27/25 09:44 10 MG Clonidine HCl 0.2 mg Q8HR PO 03/23/25 22:00 03/29/25 06:48 0.2 MG Minoxidil 5 mg Q12HR PO 03/23/25 22:00 03/28/25 23:42 5 MG Prazosin HCl 1 mg Q12HR PO 03/23/25 22:00 03/28/25 23:43 1 MG Nicardipine HCl 250 ml @ 50 mls/hr Q5H IV 03/24/25 12:30 Cancel Clonazepam 0.25 mg Q12HP PRN PO 03/26/25 13:45 objective General Appearance: Alert, Other (Nonverbal no distress noted) HEENT: Atraumatic, PERRLA, EOMI, Mucous membranes. moist/pink Respiratory: Clear to auscultation, Normal air movement Cardiovascular: Regular rate, Normal S1, Normal S2, S4 gallop is present Abdominal: Normal bowel sounds, Soft, No tenderness, No hepatosplenomegaly, No masses Extremities: No clubbing, No cyanosis, Normal pulses, No tenderness/swelling, Other (The edema to bilateral hands) Skin: No rashes, No breakdown, No significant lesion Neuro: AAOx3 laboratory and microbiology Laboratory Tests 03/27/25 07:30 Test 03/27/25 07:30 Range/Units Serum Glucose 93 74-106 mg/dL Assessment/Plan ESRD on HD via tunneled catheter HTN Urgency Encephalopathy Anemia of CKD h/o CVA Plan: s/p HD Sunday Next HD on Sunday continue HD on TTS schedule Continue current antihypertensive regimen, he is not "allergic to blood pressure medications", he has tolerated all the meds well. Continue Amlodpine 10 mg daily, and Coreg 25 mg PO BID DC Minoxidil. SBP is in 90s mmHg this morning. Goal SBP 120-130s mmHg Continue Clonidine 0.2 mg PO TID as needed for SBP > 160 mmHg Dietary Evaluation Review Comments: Nutrition Recommendation 1) Advance to renal standard diet as medically feasible 2) Consider TPN of NPO > 7 days 3) Nephro-lara 1 tab daily 4) Monitor PO intake, lab values, weight trend, and I/O Expected Outcomes/Goals: To meet >75% estimated needs Lab values to improve Fu 2-3 days Plan discussed with: Patient, Spouse GREGORY BEAVERS MD Mar 29, 2025 13:23
[2025-03-30 01:00] VITALS: BP 119/76; PULSE 91; RESP 18; TEMP 98.1; O2SAT 96
[2025-03-30 05:00] VITALS: BP 128/83; PULSE 90; RESP 18; TEMP 98; O2SAT 94
[2025-03-30 08:00] VITALS: PULSE 83; PULSE 86; RESP 18
--- NOTE | 2025-03-30 08:31 | DVHPN2 ---
Progress Note - Dictate Date Seen: Mar 30, 2025 Has the PT tested + for MRSA If YES, has PT been informed?: No Medical Necessity Reason Pt with a Central, PICC or Fol: No Subjective No acute issues overnight. Patient has sitter at bedside. Wanting to go home. vital signs Vital Sign Date Time Temp Pulse Resp B/P (MAP) Pulse Ox O2 Delivery O2 Flow Rate FiO2 03/30/25 06:00 128/83 03/30/25 05:00 98.0 90 18 94 98.0 03/29/25 20:00 Room Air* 0 21 Total Intake and Output 03/29/25 03/29/25 03/30/25 15:00 23:00 07:00 Intake Total 350 ml 50 ml Output Total 150 ml Balance 200 ml 50 ml medications Current Medications Medications Dose Ordered Sig/Shayan Route Start Time Stop Time Status Last Admin Dose Admin Cefepime HCl 50 ml @ 12.5 mls/hr HS IV 03/20/25 22:00 03/29/25 22:21 12.5 MLS/HR Aspirin 81 mg DAILY PO 03/21/25 10:00 03/29/25 10:00 81 MG Prochlorperazine Edisylate 5 mg Q4HPRN PRN IV 03/21/25 13:00 Levothyroxine Sodium 35 mcg DAILY@0600 IV 03/22/25 06:00 Hold Hydromorphone HCl 0.25 mg Q4HPRN PRN IV 03/22/25 05:30 03/29/25 20:04 0.25 MG Diphenhydramine HCl 25 mg Q4HP PRN IV 03/22/25 05:30 03/29/25 22:23 25 MG Carvedilol 25 mg Q12HR PO 03/22/25 10:00 03/29/25 22:22 25 MG Amlodipine Besylate 10 mg DAILY PO 03/22/25 10:00 03/27/25 09:44 10 MG Clonidine HCl 0.2 mg Q8HR PO 03/23/25 22:00 03/29/25 06:48 0.2 MG Prazosin HCl 1 mg Q12HR PO 03/23/25 22:00 03/29/25 22:23 1 MG Nicardipine HCl 250 ml @ 50 mls/hr Q5H IV 03/24/25 12:30 Cancel Clonazepam 0.25 mg Q12HP PRN PO 03/26/25 13:45 objective General Appearance: Alert, Other (Nonverbal no distress noted) HEENT: Atraumatic, PERRLA, EOMI, Mucous membranes. moist/pink Respiratory: Clear to auscultation, Normal air movement Cardiovascular: Regular rate, Normal S1, Normal S2, S4 gallop is present Abdominal: Normal bowel sounds, Soft, No tenderness, No hepatosplenomegaly, No masses Extremities: No clubbing, No cyanosis, Normal pulses, No tenderness/swelling, Other (The edema to bilateral hands) Skin: No rashes, No breakdown, No significant lesion Neuro: No focal deficits laboratory and microbiology Laboratory Tests 03/27/25 07:30 Test 03/27/25 07:30 Range/Units Serum Glucose 93 74-106 mg/dL Problem List ESRD on HD via tunneled catheter Hypertensive renal disease Encephalopathy Anemia of CKD h/o CVA Assessment/Plan continue HD on TTS schedule Continue current antihypertensive regimen, he is not "allergic to blood pressure medications", he has tolerated all the meds well. Continue Amlodpine 10 mg daily, and Coreg 25 mg PO BID Prazosin 1 mg q.12 hours Continue Clonidine 0.2 mg PO TID Minoxidil has been discontinued. We will monitor blood pressure closely. If sustained hypotension we will decrease clonidine to 0.1 mg q.8 hours. Dietary Evaluation Review Comments: Nutrition Recommendation 1) Advance to renal standard diet as medically feasible 2) Consider TPN of NPO > 7 days 3) Nephro-lara 1 tab daily 4) Monitor PO intake, lab values, weight trend, and I/O Expected Outcomes/Goals: To meet >75% estimated needs Lab values to improve Fu 2-3 days Plan discussed with: Patient ABENA JULIEN MD Mar 30, 2025 08:31
[2025-03-30 09:00] VITALS: BP 137/49; PULSE 94; RESP 94; TEMP 97.8; O2SAT 19
--- NOTE | 2025-03-30 09:20 | DVHDS2 ---
Discharge Summary Date of Admission Mar 20, 2025 at 17:38 Date of Discharge: Mar 30, 2025 Labs/Diagnostic Data: Laboratory Results Test 03/27/25 07:30 03/26/25 02:38 03/25/25 08:10 03/22/25 06:12 White Blood Count 3.6 10^3/uL (4.4-10.8) Red Blood Count 3.26 10^6/uL (4.5-5.90) Hemoglobin 9.8 g/dL (13.5-17.5) Hematocrit 28.8 % (41.0-53.0) Mean Corpuscular Volume 88.2 fL (80.0-100.0) Mean Corpuscular Hemoglobin 30.2 pg (28.0-32.0) Mean Corpuscular Hemoglobin Concent 34.2 g/dL (32.0-36.0) Red Cell Distribution Width 13.6 % (11.8-14.3) Platelet Count 192 10^3/uL (140-450) Mean Platelet Volume 7.2 fL (6.9-10.8) Neutrophils (%) (Auto) 51.3 % (37.0-80.0) Lymphocytes (%) (Auto) 26.5 % (10.0-50.0) Monocytes (%) (Auto) 10.2 % (0.0-12.0) Eosinophils (%) (Auto) 8.2 % (0.0-7.0) Basophils (%) (Auto) 3.8 % (0.0-2.0) Neutrophils # (Auto) 1.8 10 ^3/uL (1.6-8.6) Lymphocytes # (Auto) 0.9 10 ^3/uL (0.4-5.4) Monocytes # (Auto) 0.4 10 ^3/uL (0-1.3) Eosinophils # (Auto) 0.3 10 ^3/uL (0-0.8) Basophils # (Auto) 0.1 10 ^3/uL (0-0.2) Nucleated Red Blood Cells 0.2 % Sodium Level 140 mmol/L (136-145) Potassium Level 4.3 mmol/L (3.5-5.1) Chloride Level 99 mmol/L (98-107) Carbon Dioxide Level 27 mmol/L (20-31) Anion Gap 14 (5-15) Blood Urea Nitrogen 16 mg/dL (9-23) Creatinine 5.78 mg/dL (0.700-1.30) Glomerular Filtration Rate Calc 11 mL/min (>90) BUN/Creatinine Ratio 2.8 (10.0-20.0) Serum Glucose 93 mg/dL (74-106) Calcium Level 11.3 mg/dL (8.7-10.4) Total Bilirubin 0.5 mg/dL (0.2-1.0) Aspartate Amino Transferase (AST) 22 U/L (13-40) Alanine Aminotransferase (ALT) 32 U/L (7-40) Alkaline Phosphatase 75 U/L (46-116) Total Protein 6.1 g/dL (5.7-8.2) Albumin 3.6 g/dL (3.2-4.8) Phosphorus Level 9.4 mg/dL (2.4-5.1) Magnesium Level 2.5 mg/dL (1.6-2.6) POC Glucose 95 mg/dl (70-106) Test 03/22/25 02:06 03/20/25 18:44 03/20/25 17:00 03/20/25 15:15 Thyroid Stimulating Hormone (TSH) 3.10 uIU/mL (0.55-4.78) Ammonia < 10 umol/L (11-32) Urine Color Light-yellow (Yellow) Urine Clarity Clear (Clear) Urine pH 8.0 (5.0-9.0) Urine Specific [place] 1.008 (1.001-1.035) Urine Protein 1+ (Negative) Urine Ketones Negative (Negative) Urine Blood 3+ /uL (Negative) Urine Nitrite Negative (Negative) Urine Bilirubin Negative (Negative) Urine Urobilinogen Normal mg/dL (Negative) Urine Leukocyte Esterase Negative /uL (Negative) Urine RBC 9 /hpf (0 - 3) Urine Microscopic WBC 12 /HPF (0-3) Urine Squamous Epithelial Cells None seen /hpf (<5) Urine Bacteria Many /hpf (None Seen) Urine Sperm Present /hpf (None Seen) Urine Glucose Trace mg/dL (Normal) Troponin I High Sensitivity 134 ng/L (</=54) Test 03/20/25 12:05 Prothrombin Time 14.4 sec (9.3-11.8) Prothrombin Time INR 1.41 (0.9-1.15) Activated Partial Thromboplast Time 30.0 SEC (24.5-34.5) Lactic Acid Level 0.9 mmol/L (0.4-2.0) B-Type Natriuretic Peptide 507.44 pg/mL (0-100) Plasma/Serum Blood Alcohol < 3.0 mg/dL (<10) Other Laboratory Tests 03/27/25 07:30 Brief Hx & Hospital Course: 54 M with resistant HTN (with noted allergies but reported making him feel "very sick", no anaphylaxis hx), ESRD on HD, carotid artery stenosis s/p stenting, TIAs, thyroid disease. admited for AMS after 1 day in SNF. patient was covered with cefepime, received inpatient HD, was placed on nicardipine for 1 day due to not taking his meds and have emergent htn. now stable with oral meds. ss consult placed for home health. stable to [place] home. informed. Condition at Discharge: Stable Final Diagnosis/Problems List ESRD on HD HTN emergency type 2 DE demand ischemia and decreased renal clearance UTI? metabolic encephalopathy? PRESS? vasc dementia? decnoditioned Discharge Disposition: Home with Health Services Discharge Instruct/Medications Scheduled Aspirin (Aspir-Low), 81 MG PO DAILY, (Reported) Hydralazine HCl (Hydralazine HCl), 25 MG PO Q6HR Isosorbide Dinitrate (Isosorbide Dinitrate), 20 MG PO TID@06,12,18 Prochlorperazine Maleate (Compazine), 10 MG IM QIDP, (Reported) Miscellaneous Medications Hydroxyzine Hcl (Hydroxyzine Hcl), 25 MG PO, (Reported) Labetalol Hcl (Labetalol Hcl), 300 MG PO, (Reported) Omeprazole (Gnp Omeprazole), 40 MG PO, (Reported) Potassium Chloride (Klor-Con 8), 8 MEQ PO, (Reported) Discontinued Medications Furosemide (Furosemide), 40 MG PO DAILY, (Reported) Nifedipine (Nifedipine Er), 1 TAB PO DAILY, (Reported) Oxycodone W/ Acetaminophen (Percocet 5/325MG), 1 TAB PO QID, (Reported) Discharge Statement: "Patient was advised to return to the ER or call 911 if any headaches, dizziness, shortness of breath, chest pain, abdominal pain, bleeding, fevers, or worsening of medical condition. Patient was counseled about treatment plan, medications, possible side effects, patientverbalized understanding. All questions were answered to the best of my ability. This discharge took greater then 30 minutes in planning, reviewing documentation, counseling the patient, and discussing with other team members." ASSESSMENT ASSESSMENT Assessment Date of Service: Mar 30, 2025 Billing Provider: DION ROSA MD Common Visit Codes: 14931-ZLH/OBS DISCH DAY >30min DION ROSA MD Mar 30, 2025 09:20
[2025-03-30 13:00] VITALS: BP 127/72; PULSE 92; RESP 19; TEMP 97.7; O2SAT 98
[2025-03-30] MEDS ORDERED: CARV-216 PO (13:45)
[2025-03-30] MEDS ORDERED: AML5T PO (13:45)
[2025-03-30] MEDS ORDERED: PRAZ1CAP2 PO (13:45)
[2025-03-30] MEDS ORDERED: ASPI-543 PO (13:45)
[2025-03-30] MEDS ORDERED: CLON0.5T4 PO (13:45)
[2025-03-30] MEDS ORDERED: HYDR-4564 PO (13:45)
[2025-03-30 15:31] VITALS: BP 129/88; PULSE 106; RESP 18; TEMP 36.5; O2SAT 96
[2025-03-31] MEDS ORDERED: SODIUM CHL 0.9% 1000 ML BAG XX ONE (07:00)
[2025-03-31] MEDS ORDERED: EPOETIN ALFA-EPBX 4,000 UNIT/ML VIAL SC ONE (21:00)
== END 2025-03-30 16:48 | disposition home health service (06) | DRG 463 ==
LOC: ER 11:37 → EDBD 11:37 → OVERFLOW 17:38 → TELE-CENTR 03-21 13:06 → ICU WEST 03-24 14:39 → TELE-CENTR 03-26 15:52
PROVIDERS: ADMIT Student in an Organized Health Care Education/Training Program; ATTEND Student in an Organized Health Care Education/Training Program
PROC: 5A1D70Z Performance of Urinary Filtration, Intermittent, Less than 6 Hours Per Day (ICD-10-PCS; principal; 2025-03-22)
PROC: 5A1D70Z Performance of Urinary Filtration, Intermittent, Less than 6 Hours Per Day (ICD-10-PCS; 2025-03-24)
PROC: 5A1D70Z Performance of Urinary Filtration, Intermittent, Less than 6 Hours Per Day (ICD-10-PCS; 2025-03-26)
PROC: 5A1D70Z Performance of Urinary Filtration, Intermittent, Less than 6 Hours Per Day (ICD-10-PCS; 2025-03-28)
DX: N30.01 Acute cystitis with hematuria (principal); G93.41 Metabolic encephalopathy; I21.A1 Myocardial infarction type 2; I12.0 Hypertensive chronic kidney disease with stage 5 chronic kidney disease or end stage renal disease; D63.1 Anemia in chronic kidney disease; N18.6 End stage renal disease; G62.9 Polyneuropathy, unspecified; I16.1 Hypertensive emergency; G89.29 Other chronic pain; G43.909 Migraine, unspecified, not intractable, without status migrainosus; F41.9 Anxiety disorder, unspecified; F43.10 Post-traumatic stress disorder, unspecified; F01.50 Vascular dementia, unspecified severity, without behavioral disturbance, psychotic disturbance, mood disturbance, and anxiety; E03.9 Hypothyroidism, unspecified; E78.1 Pure hyperglyceridemia; G40.909 Epilepsy, unspecified, not intractable, without status epilepticus; I1A.0 Resistant hypertension; Z99.2 Dependence on renal dialysis; Z88.6 Allergy status to analgesic agent; Z88.5 Allergy status to narcotic agent; Z88.8 Allergy status to other drugs, medicaments and biological substances; Z79.82 Long term (current) use of aspirin; Z79.899 Other long term (current) drug therapy; Z83.3 Family history of diabetes mellitus; Z82.49 Family history of ischemic heart disease and other diseases of the circulatory system; Z82.0 Family history of epilepsy and other diseases of the nervous system; Z80.3 Family history of malignant neoplasm of breast; Z80.1 Family history of malignant neoplasm of trachea, bronchus and lung; Z88.1 Allergy status to other antibiotic agents
CPT/HCPCS: 36415; 70450; 70551; 71045; 80048; 80053; 80320; 81001; 82140; 82962; 83605; 83735; 83880; 84100; 84443; 84484; 85025; 85610; 85730; 87040; 90935; 92610; 93005; 96365; 96367; 96375; 97110; 97116; 97163; 99291; G0378; J1642